=== PATIENT | male | born 1945 | race Caucasian/White ===

== ENCOUNTER 2022-11-07 10:32 | Outpatient (REF) | payer MEDICARE, BC, SELFPAY ==
[2022-11-07 13:54] LABS: MANUAL DIFF FLAG NO
[2022-11-07 14:03] LABS: Basophils Percent Auto 0.6 % (0-2); Eosinophils Percent Auto 0.6 % (0-4); Hematocrit 36.1 % (42.0-52.0); Hemoglobin 11.2 g/dl (14.0-18.0); Imm Gran Abs Auto 0.02 X10*3/uL (0.00-0.03); Imm Gran Pct Auto 0.4 % (0.0-0.4); Lymphocytes Absolute Auto 0.5 X10*3/uL (1.2-4.9); Mean Corpuscular Volume 90.3 fL (80.0-98.0); Mean Platelet Volume 10.7 fL (9.4-12.4); Monocytes Absolute Auto 0.3 X10*3/uL (0.1-1.2); Monocytes Percent Auto 6.2 % (2-11); Neutrophils Absolute Auto 3.8 x10*3/uL (2.0-8.3); Neutrophils Percent Auto 81.2 % (45-73); Platelet Count 228 X10*3/uL (160-400); White Blood Count 4.7 X10*3/uL (4.8-10.8)
[2022-11-07 14:11] LABS: Appearance Urine Cloudy; Color Urine Dark Yellow; Glucose Urine UA 100 mg/dL (Negative); Leukocyte Esterase Urine Negative (Negative); Nitrite Urine Negative (Negative); Specific Gravity - Urine >= 1.030 (1.005-1.025); UMIC TRIGGER UA YES; Urine Blood Negative (Negative); Urine Ketones Trace mg/dL (Negative); Urine Protein 30 (1+) mg/dL (Neg-Trace)
[2022-11-07 14:24] LABS: Bacteria Urine None Seen (None Seen); Calcium Oxalate Crystals Urine Present; Hyaline Casts Urine 0-2 /LPF (0-2); Squamous Epithelial Cell Urine 0-2 /HPF (0-2); WBC Urine 0-5 /HPF (0-5)
[2022-11-07 14:49] LABS: Erythrocyte Sedimentation Rate 25 MM/HR (0-15)
[2022-11-07 17:31] LABS: Alanine Aminotransferase 43 U/L (0-40); Albumin Level 3.8 g/dL (3.5-5.0); Alkaline Phosphatase 61 U/L (39-117); Anion Gap 14 (12-20); Aspartate Amino Transferase 29 U/L (5-37); Bilirubin Total 0.6 mg/dL (0.0-1.0); Blood Urea Nitrogen 14 mg/dL (9-16); C Reactive Protein 0.86 mg/dL (< or = 0.50); Calcium 9.3 mg/dL (8.4-10.2); Carbon Dioxide 27 mmol/L (22-29); Chloride 104 mmol/L (96-108); Estimated Glomerular Filt Rate > 60; Glucose Random 306 mg/dL (60-115); Potassium 4.6 mmol/L (3.3-5.1); Rheumatoid Factor < 13.0 IU/mL (<15.0); Sodium 140 mmol/L (135-145); Thyroid Stimulating Hormone 1.54 uIU/mL (0.32-4.0); Total Protein 6.1 g/dL (6.5-8.0); Uric Acid 4.5 mg/dL (3.4-7.0)
[2022-11-08 08:59] LABS: HBc Num1 0.17 S/CO (0.00-0.79); HBsAGNum1 0.38 S/CO (0.00-0.99); Hepatitis B Core Antibody Nonreactive (Nonreactive); Hepatitis B Surface Antigen Negative (Negative); ~Hepatitis B Surface Antibody NONREACTIVE (Nonreactive); ~Hepatitis C Antibody Nonreactive (Nonreactive)
[2022-11-09 07:44] LABS: Hepatitis A Antibody IgM 0.32 Index (0-0.79); ~Hepatitis A Antibody IgM Nonreactive (Nonreactive)
[2022-11-09 13:28] LABS: Myeloperoxidase Antibody <1.0 AI; Proteinase 3 PR3 Antibodies <1.0 AI
[2022-11-09 17:13] LABS: Cyclic Citrullinated Peptide <16 UNITS
[2022-11-10 03:29] LABS: TS Negative Control Passed; TS Panel A 0; TS Panel B 0; TS Positive Control Passed; TSpotTB Negative (Negative)
[2022-11-12 18:33] LABS: Prot Elec - Albumin 3.5 g/dL (3.8-4.8); Prot Elec - Alpha1 0.3 g/dL (0.2-0.3); Prot Elec - Alpha2 0.9 g/dL (0.5-0.9); Prot Elec - Beta 1 0.4 g/dL (0.4-0.6); Prot Elec - Beta 2 0.3 g/dL (0.2-0.5); Prot Elec - Gamma 0.7 g/dL (0.8-1.7); Prot Elec - Total Protein 6.1 g/dL (6.1-8.1)
[2022-11-13 11:54] LABS: Anti Nuclear Antibody Screen POSITIVE (NEGATIVE); Anti Nuclear Antibody Titer 1:40 titer
[2022-11-13 14:58] LABS: IgA 289 mg/dL (70-320); IgG 711 mg/dL (600-1540); IgM 198 mg/dL (50-300)
[2022-11-13 23:07] LABS: HLA B27 Negative (Negative)
== END 2022-11-07 10:33 | disposition home or self-care (01) ==
LOC: HO.10HDL 10:32
PROVIDERS: Visit Provider Student in an Organized Health Care Education/Training Program
DX: Z11.59 Encounter for screening for other viral diseases (principal); Z11.7 Encounter for testing for latent tuberculosis infection; M35.3 Polymyalgia rheumatica; G89.29 Other chronic pain; M54.50 Low back pain, unspecified; E03.9 Hypothyroidism, unspecified
CPT/HCPCS: 36415; 80053; 81001; 82550; 82784; 84165; 84443; 84550; 85025; 85652; 86021; 86038; 86039; 86140; 86200; 86334; 86431; 86481; 86704; 86706; 86709; 86803; 86812; 87340; 99202

== ENCOUNTER → 2022-12-12 11:26 | Outpatient (BNVA) | payer MEDICARE, BC, SELFPAY | PROVIDERS: PCP Family Medicine; Visit Provider Student in an Organized Health Care Education/Training Program | DX: M06.00 Rheumatoid arthritis without rheumatoid factor, unspecified site (principal); Z79.52 Long term (current) use of systemic steroids; Z79.899 Other long term (current) drug therapy | CPT/HCPCS: 99212 ==

== ENCOUNTER → 2023-02-08 12:56 | Outpatient (BNVA) | payer MEDICARE, BC, SELFPAY | PROVIDERS: PCP Family Medicine; Visit Provider Student in an Organized Health Care Education/Training Program | DX: M06.00 Rheumatoid arthritis without rheumatoid factor, unspecified site (principal); Z79.52 Long term (current) use of systemic steroids; Z79.899 Other long term (current) drug therapy | CPT/HCPCS: 99212 ==

== ENCOUNTER 2023-06-27 08:41 | Outpatient (REF) | payer MEDICARE, BC, SELFPAY ==
[2023-06-27 11:18] LABS: MANUAL DIFF FLAG NO
[2023-06-27 11:47] LABS: Basophils Absolute Auto 0.1 X10*3/uL (0.0-0.2); Basophils Percent Auto 1.6 % (0-2); Eosinophils Absolute Auto 0.2 X10*3/uL (0.0-0.4); Eosinophils Percent Auto 4.7 % (0-4); Hemoglobin 12.7 g/dl (14.0-18.0); Imm Gran Abs Auto 0.02 X10*3/uL (0.00-0.03); Imm Gran Pct Auto 0.5 % (0.0-0.4); Lymphocytes Absolute Auto 0.8 X10*3/uL (1.2-4.9); Lymphocytes Percent Auto 18.3 % (20-40); Mean Corpuscular Hemoglobin 29.3 pg (27.0-33.0); Mean Corpuscular Volume 94.7 fL (80.0-98.0); Mean Platelet Volume 10.3 fL (9.4-12.4); Monocytes Absolute Auto 0.4 X10*3/uL (0.1-1.2); Monocytes Percent Auto 9.3 % (2-11); Neutrophils Absolute Auto 2.9 x10*3/uL (2.0-8.3); Neutrophils Percent Auto 65.6 % (45-73); Platelet Count 217 X10*3/uL (160-400); Red Blood Count 4.33 X10*6/uL (4.60-5.80); Red Cell Distribution Width 12.3 % (11.0-16.0); White Blood Count 4.4 X10*3/uL (4.8-10.8)
[2023-06-27 12:07] LABS: Alanine Aminotransferase 35 U/L (0-40); Albumin Level 3.8 g/dL (3.5-5.0); Alkaline Phosphatase 66 U/L (39-117); Anion Gap 17 (12-20); Aspartate Amino Transferase 24 U/L (5-37); Bilirubin Total 0.8 mg/dL (0.0-1.0); Blood Urea Nitrogen 11 mg/dL (9-16); C Reactive Protein 0.19 mg/dL (< or = 0.50); Calcium 9.5 mg/dL (8.4-10.2); Carbon Dioxide 24 mmol/L (22-29); Chloride 107 mmol/L (96-108); Estimated Glomerular Filt Rate > 60; Glucose Random 252 mg/dL (60-115); Potassium 4.6 mmol/L (3.3-5.1); Sodium 143 mmol/L (135-145); Total Protein 6.2 g/dL (6.5-8.0)
[2023-06-27 12:40] LABS: Erythrocyte Sedimentation Rate 9 MM/HR (0-15)
== END 2023-06-27 08:42 | disposition home or self-care (01) ==
LOC: HO.10HDL 08:41
PROVIDERS: Visit Provider Student in an Organized Health Care Education/Training Program
DX: M06.00 Rheumatoid arthritis without rheumatoid factor, unspecified site (principal)
CPT/HCPCS: 36415; 80053; 85025; 85652; 86140

== ENCOUNTER 2023-07-05 08:26 | Outpatient (AMB) | payer MEDICARE, BC, SELFPAY ==
--- NOTE | 2023-07-05 08:33 | A.OFFVIS_ITS ---
Intake Vital Signs 07/05/23 08:34 Height 5 ft 11 in Weight 170 lb 3.15 oz BMI 23.7 BP 116/62 Blood Pressure Location Rt brachial Position Sitting Pulse 71 Pulse Source Pulse Oximeter Temp 97.3 F Temp Source Skin Pulse Oximetry (%) 96 Intake Visit Reasons: RA Intake Note: Pt seen today for RA follow up. Pain persists in shoulders, hands and wrists. 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 Required: No Accompanied by: Self / Same As Patient Allergies cats Allergy (Intermediate, Uncoded 07/05/23 08:41) Headache Medication List - Last Reconciled 07/05/23 by Ena Castillo MD acetaminophen (Tylenol Extra Strength) 500 mg PO Q6H PRN albuterol sulfate 90 mcg/actuation (ProAir HFA) 2 puffs inhalation Q6H PRN atorvastatin 80 mg PO DAILY azelaic acid 15% 1 appl topical BID coenzyme Q10 (Ultra CoQ10) 150 mg PO DAILY fluticasone propionate 50 mcg/actuation (Allergy Relief (fluticasone)) 2 sprays intranasal BID folic acid 0.8 mg PO DAILY gabapentin 300 mg PO BID glimepiride 6 mg PO QAM hydroxychloroquine 200 mg PO BID ketoconazole 2% 1 appl topical DAILY levothyroxine 125 mcg PO DAILY lisinopril 10 mg PO DAILY metformin ER 500 mg PO BID metoprolol succinate ER 50 mg PO DAILY multivitamin 1 tab PO DAILY prednisone 2 mg PO DAILY rivaroxaban (Xarelto) 20 mg PO DAILY terazosin 5 mg PO BEDTIME HPI HPI Comments History of Present Illness Details Patient returns for PMR follow-up. He is currently on 2 mg of prednisone. Has been tapering down by 1 mg a month. After reducing the prednisone dose from 5 mg daily he has been having pain and stiffness in his shoulders, wrists, fingers. Stiffness lasts until about 16:00. Continues to take hydroxychloroquine 200 mg Twice daily. He started developing psoriasis rashes on his elbows, knees, legs. Stated that he has had psoriasis for decades and has been in remission but it flared up over the last few months. 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 Condition started the end of July patient noticing generalized stiffness of his neck, shoulders, hands, thighs. Stiffness improves in about 8 hours. Was evaluated by his PCP and was found to have significantly elevated inflammatory markers. He was started on prednisone 15 mg daily with dramatic improvement of his symptoms however his blood sugars were significantly elevated his prednisone was tapered to 7.5 mg daily. Patient felt that the higher dose of prednisone was more helpful. Was also found to have positive Lyme serology and received a 28 day course of doxycycline. He denied any tick bites and denied any activities that would put him at risk of a tick bite. Denies any skin rashes. He also denies any joint pain, jaw claudication, tongue pain. Denies any claudication of his hands or feet. Denies headaches, fevers, weight loss or blurry vision. [facility] Medical History (Updated 07/05/23 @ 09:20 by Ena Castillo MD) Atrial fibrillation Degeneration of intervertebral disc of lumbar region Diabetes Encounter for testing for latent tuberculosis infection Essential hypertension Hyperlipidemia Hypothyroidism Low back pain, unspecified Obstructive sleep apnea Osteoarthritis Psoriasis Screening for viral disease Surgical History Hx of excision of lamina of lumbar vertebra for decompression of spinal cord Hx of hernia repair Family History Mother Coronary arteriosclerosis Myocardial infarction Father Alcoholism Diabetes Social History Household Members: Spouse Household Members Other:: Alcohol intake: current Alcohol intake frequency: does not drink Patient Tobacco Use Status: Former Tobacco user Current occupational status: retired 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 Review of Systems ENT Reports no additional complaints Resp Reports no additional complaints GI Reports no additional complaints Denies hematuria Musc Reports arthralgias and Reports stiffness Skin/Breast Reports rash (Psoriasis) Physical Exam Vital Signs: Last Vital Signs Temp 97.3 F 07/05/23 08:34 Pulse 71 07/05/23 08:34 BP 116/62 07/05/23 08:34 Pulse Ox 96 07/05/23 08:34 BMI result Body Mass Index 23.7 Const General: cooperative and comfortable Nutritional Appearance: average body habitus Orientation/consciousness: patient oriented x3 Limitations: no limitations HEENT Other: No temporal area tenderness No TMJ tenderness Head: Yes normocephalic and Yes atraumatic Mouth: moist mucous membranes Resp Effort & Inspection: normal respiratory effort and able to speak in complete sentences Auscultation: clear to auscultation bilaterally Cardio Rate: regular rate Rhythm: regular rhythm Heart sounds: S1 normal heart sound present and S2 normal heart sound present Skin Other: Psoriasis patches on right elbow, right leg, behind both ears Neuro General: patient oriented x3 Extrem Other: Bilateral tender wrists with no significant swelling Few tender MCPs bilaterally Bilateral diffuse PIP tenderness No ankle swelling or tenderness bilaterally Negative MTP squeeze test Normal range of motion of both shoulders Assessment & Plan Assessment & Plan (1) Seronegative rheumatoid arthritis: Comment: Seronegative diagnosed 12/17 has hx of PSO HCQ started 12/17 ineffective & caused PSO flare DC 07/17 MTX started 07/17 PDN all through Code(s): M06.00 - Rheumatoid arthritis without rheumatoid factor, unspecified site Plan: This is a 77-year-old male with seronegative RA returns for follow-up. Has been on hydroxychloroquine for approximately 6 months without significant relief. Has developed a psoriasis flare. Symptoms of pain and stiffness started after lowering prednisone dose from 5 mg. Will discontinue hydroxychloroquine due to ineffectiveness and psoriasis flare. Discussed risks and benefits of methotrexate. 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 Will monitor patient for side effects with frequent lab work. Advised patient to take folic acid daily to prevent complications of methotrexate. Patient consumes around 1 beer a month Plan I spent 26 minutes reviewing patient's chart, evaluating patient, ordering diagnostic workup, counseling patient and documenting in the chart Orders: Orders Complete Blood Count Auto Diff 2 Months M06.00 - Rheumatoid arthritis without rheumatoid factor, unspecified site Comprehensive Met. Panel 2 Months M06.00 - Rheumatoid arthritis without rheumatoid factor, unspecified site C Reactive Protein 2 Months M06.00 - Rheumatoid arthritis without rheumatoid factor, unspecified site Erythrocyte Sedimentation Rate 2 Months M06.00 - Rheumatoid arthritis without rheumatoid factor, unspecified site Medications: New prednisone Take 2 tabs by mouth once daily with breakfast for 2 weeks then 1 tab daily for 2 weeks then stop 42 tabs 1RF methotrexate sodium Take 6 tabs by mouth once weekly for 2 weeks then 8 tabs once weekly 64 tabs 0RF folic acid 1 mg PO DAILY 90 tabs 1RF Discontinued hydroxychloroquine Discontinued Reason: Doctor's Order 200 mg PO BID 180 tabs 0RF Coding Level of Care Code Est Pt Level 4 (00918) Diagnoses Seronegative rheumatoid arthritis M06.00 Methotrexate, senior living, current use Z79.631
[2023-07-05 08:34] VITALS: BP 116/62; PULSE 71; TEMP 36.3; O2SAT 96; BMI 23.7
== END 2023-07-05 09:11 | disposition home or self-care (01) ==
PROVIDERS: PCP Family Medicine; Visit Provider Student in an Organized Health Care Education/Training Program
DX: M06.00 Rheumatoid arthritis without rheumatoid factor, unspecified site (principal); Z79.631 Long term (current) use of antimetabolite agent
CPT/HCPCS: 99214

== ENCOUNTER → 2023-07-05 08:26 | Outpatient (BNVA) | payer MEDICARE, BC, SELFPAY | PROVIDERS: PCP Family Medicine; Visit Provider Student in an Organized Health Care Education/Training Program | DX: M06.00 Rheumatoid arthritis without rheumatoid factor, unspecified site (principal); Z79.631 Long term (current) use of antimetabolite agent | CPT/HCPCS: 99212 ==

== ENCOUNTER 2023-09-11 08:01 | Outpatient (REF) | payer MEDICARE, BC, SELFPAY ==
[2023-09-11 10:50] LABS: MANUAL DIFF FLAG NO
[2023-09-11 10:56] LABS: Basophils Absolute Auto 0.1 X10*3/uL (0.0-0.2); Basophils Percent Auto 1.7 % (0-2); Eosinophils Absolute Auto 0.3 X10*3/uL (0.0-0.4); Eosinophils Percent Auto 5.3 % (0-4); Hematocrit 37.3 % (42.0-52.0); Hemoglobin 11.9 g/dl (14.0-18.0); Imm Gran Abs Auto 0.03 X10*3/uL (0.00-0.03); Imm Gran Pct Auto 0.6 % (0.0-0.4); Lymphocytes Absolute Auto 0.9 X10*3/uL (1.2-4.9); Lymphocytes Percent Auto 17.9 % (20-40); Mean Corpuscular HGB Conc 31.9 g/dl (31.0-36.0); Mean Corpuscular Hemoglobin 29.9 pg (27.0-33.0); Mean Corpuscular Volume 93.7 fL (80.0-98.0); Mean Platelet Volume 10.4 fL (9.4-12.4); Monocytes Absolute Auto 0.3 X10*3/uL (0.1-1.2); Monocytes Percent Auto 6.3 % (2-11); Neutrophils Absolute Auto 3.3 x10*3/uL (2.0-8.3); Neutrophils Percent Auto 68.2 % (45-73); Platelet Count 228 X10*3/uL (160-400); Red Blood Count 3.98 X10*6/uL (4.60-5.80); Red Cell Distribution Width 13.5 % (11.0-16.0); White Blood Count 4.8 X10*3/uL (4.8-10.8)
[2023-09-11 11:16] LABS: Alanine Aminotransferase 28 U/L (0-40); Albumin Level 3.8 g/dL (3.5-5.0); Alkaline Phosphatase 75 U/L (39-117); Anion Gap 12 (12-20); Aspartate Amino Transferase 23 U/L (5-37); Bilirubin Total 0.9 mg/dL (0.0-1.0); Blood Urea Nitrogen 12 mg/dL (9-16); C Reactive Protein 0.35 mg/dL (< or = 0.50); Calcium 9.6 mg/dL (8.4-10.2); Carbon Dioxide 26 mmol/L (22-29); Chloride 107 mmol/L (96-108); Estimated Glomerular Filt Rate > 60; Glucose Random 208 mg/dL (60-115); Potassium 4.2 mmol/L (3.3-5.1); Sodium 141 mmol/L (135-145); Total Protein 6.1 g/dL (6.5-8.0)
[2023-09-11 11:52] LABS: Erythrocyte Sedimentation Rate 8 MM/HR (0-15)
== END 2023-09-11 08:02 | disposition home or self-care (01) ==
LOC: HO.10HDL 08:01
PROVIDERS: Visit Provider Student in an Organized Health Care Education/Training Program
DX: M06.00 Rheumatoid arthritis without rheumatoid factor, unspecified site (principal)
CPT/HCPCS: 36415; 80053; 85025; 85652; 86140

== ENCOUNTER 2023-09-13 09:35 | Outpatient (AMB) | payer MEDICARE, BC, SELFPAY ==
[2023-09-13 09:37] VITALS: BP 130/68; PULSE 60; O2SAT 97; BMI 24.8
--- NOTE | 2023-09-13 09:37 | MHC.OFFVIS ---
Intake Vital Signs 09/13/23 09:37 Height 5 ft 11 in Weight 177 lb 14.609 oz BMI 24.8 BP 130/68 Blood Pressure Location Rt brachial Position Sitting Pulse 60 Pulse Source Pulse Oximeter Pulse Oximetry (%) 97 Intake Visit Reasons: RA Intake Note: Pt presents today for follow up and test results. Completed prednisone taper, Plaquenil discontinued for ineffectiveness. Currently on MTX 8 tabs weekly, states this is not helping. 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 Required: No Accompanied by: Spouse Allergies cats Allergy (Intermediate, Uncoded 09/13/23 09:47) Headache Medication List - Last Reconciled 09/13/23 by Ena Castillo MD acetaminophen (Tylenol Extra Strength) 500 mg PO Q6H PRN albuterol sulfate 90 mcg/actuation (ProAir HFA) 2 puffs inhalation Q6H PRN atorvastatin 80 mg PO DAILY azelaic acid 15% 1 appl topical BID coenzyme Q10 (Ultra CoQ10) 150 mg PO DAILY fluticasone propionate 50 mcg/actuation (Allergy Relief (fluticasone)) 2 sprays intranasal BID folic acid 1 mg PO DAILY gabapentin 300 mg PO BID glimepiride 6 mg PO QAM ketoconazole 2% 1 appl topical DAILY levothyroxine 125 mcg PO DAILY lisinopril 10 mg PO DAILY metformin ER 500 mg PO BID methotrexate sodium 20 mg PO QWEEK metoprolol succinate ER 50 mg PO DAILY multivitamin 1 tab PO DAILY prednisone 2 mg PO DAILY prednisone Take 2 tabs by mouth once daily with breakfast for 2 weeks then 1 tab daily for 2 weeks then stop rivaroxaban (Xarelto) 20 mg PO DAILY terazosin 5 mg PO BEDTIME HPI HPI Comments History of Present Illness Details 78-year-old male with seronegative RA returns for follow-up. Had been on methotrexate 8 tabs weekly since last visit. States that psoriasis rashes have resolved. States that the joint pain is worse. Continues to have pain in both wrists, hands, fingers, the pain is more severe in the morning associated with stiffness that lasts 7-8 hours. No pain in knees, ankles or toes. Intermittent left elbow pain. 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 Condition started the end of July patient noticing generalized stiffness of his neck, shoulders, hands, thighs. Stiffness improves in about 8 hours. Was evaluated by his PCP and was found to have significantly elevated inflammatory markers. He was started on prednisone 15 mg daily with dramatic improvement of his symptoms however his blood sugars were significantly elevated his prednisone was tapered to 7.5 mg daily. Patient felt that the higher dose of prednisone was more helpful. Was also found to have positive Lyme serology and received a 28 day course of doxycycline. He denied any tick bites and denied any activities that would put him at risk of a tick bite. Denies any skin rashes. He also denies any joint pain, jaw claudication, tongue pain. Denies any claudication of his hands or feet. Denies headaches, fevers, weight loss or blurry vision. 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 use PMR (polymyalgia rheumatica) Encounter for testing for latent tuberculosis infection Screening for viral disease Low back pain, unspecified Psoriasis Degeneration of intervertebral disc of lumbar region Osteoarthritis Atrial fibrillation Hyperlipidemia Essential hypertension Obstructive sleep apnea Diabetes Hypothyroidism Surgical History Hx of excision of lamina of lumbar vertebra for decompression of spinal cord Hx of hernia repair Family History Mother Coronary arteriosclerosis Myocardial infarction Father Alcoholism Diabetes Social History Household Members: Spouse Household Members Other:: Alcohol intake: current Alcohol intake frequency: does not drink Patient Tobacco Use Status: Former Tobacco user Current occupational status: retired 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 Review of Systems ENT Reports no additional complaints Resp Reports no additional complaints GI Reports no additional complaints Musc Reports arthralgias, Reports joint swelling and Reports stiffness Skin/Breast Denies rash Physical Exam Vital Signs: Last Vital Signs Pulse 60 09/13/23 09:37 BP 130/68 09/13/23 09:37 Pulse Ox 97 09/13/23 09:37 BMI result Body Mass Index 24.8 Const General: cooperative and comfortable Nutritional Appearance: average body habitus Orientation/consciousness: patient oriented x3 Limitations: no limitations HEENT Other: No temporal area tenderness No TMJ tenderness Head: Yes normocephalic and Yes atraumatic Mouth: moist mucous membranes Resp Effort & Inspection: normal respiratory effort and able to speak in complete sentences Auscultation: clear to auscultation bilaterally Cardio Rate: regular rate Rhythm: regular rhythm Heart sounds: S1 normal heart sound present and S2 normal heart sound present Skin Other: Psoriasis patches on right elbow, right leg, behind both ears Neuro General: patient oriented x3 Extrem Other: Bilateral tender wrists with no significant swelling Few tender MCPs bilaterally Left hand diffuse PIP tenderness, left 2nd PIP swelling Bilateral thenar atrophy No ankle swelling or tenderness bilaterally Negative MTP squeeze test Normal range of motion of both shoulders Assessment & Plan Assessment & Plan (1) Seronegative rheumatoid arthritis: Comment: Seronegative diagnosed 12/17 has hx of PSO HCQ started 12/17 ineffective & caused PSO flare DC 07/17 MTX started 07/17 ineffective Code(s): M06.00 - Rheumatoid arthritis without rheumatoid factor, unspecified site Plan: This is a 78-year-old male with seronegative RA returns for follow-up. On methotrexate 20 mg once weekly for the last 2 months without improvement. Continues to have multiple swollen and tender joints. Will need to switch DMARDs. Discussed risks and benefits of TNF inhibitors. Patient agreed to proceed. Will start prior authorization for Humira. Prednisone 5 mg for 1 weeks then 2.5 mg for 1 weeks then stop Labs before next visit in 2 months (2) Bilateral carpal tunnel syndrome: Code(s): G56.03 - Carpal tunnel syndrome, bilateral upper limbs Plan: Patient has bilateral thenar atrophy. Will check bilateral upper extremity EMG/NCV (3) Immunization counseling: Code(s): Z71.85 - Encounter for immunization safety counseling Plan: Discussed ACR vaccination guidelines for adults with autoimmune rheumatic disease. Patient already received flu vaccine, COVID booster and RSV vaccine for this season. Is planning to get Shingrix vaccine soon. Advised patient that he does not need to hold Humira for Shingrix vaccine (4) Adalimumab (Humira) long-term use: Code(s): Z79.620 - terminologist (current) use of immunosuppressive biologic Plan: Discussed risks and benefits of TNF inhibitors. Advised patient to hold Humira with any sign of infection and let us know. Plan I spent 46 minutes reviewing patient's chart, evaluating patient, ordering diagnostic workup, counseling patient and documenting in the chart Orders: Orders NE electromyogram (EMG) Today G56.03 - Carpal tunnel syndrome, bilateral upper limbs Medications: Changed From methotrexate sodium Take 6 tabs by mouth once weekly for 2 weeks then 8 tabs once weekly 64 tabs 0RF To methotrexate sodium 20 mg PO QWEEK From prednisone Take 2 tabs by mouth once daily with breakfast for 2 weeks then 1 tab daily for 2 weeks then stop 42 tabs 1RF To prednisone Take 2 tabs by mouth once daily with breakfast for 1 weeks then 1 tab daily for 1 week then stop 21 tabs 0RF Coding Level of Care Code Est Pt Level 5 (63601) Diagnoses Seronegative rheumatoid arthritis M06.00 Bilateral carpal tunnel syndrome G56.03 Immunization counseling Z71.85 Adalimumab (Humira) long-term use Z79.620
== END 2023-09-13 10:11 | disposition home or self-care (01) ==
PROVIDERS: PCP Family Medicine; Visit Provider Student in an Organized Health Care Education/Training Program
DX: M06.00 Rheumatoid arthritis without rheumatoid factor, unspecified site (principal); G56.03 Carpal tunnel syndrome, bilateral upper limbs; Z71.85 Encounter for immunization safety counseling; Z79.620 Long term (current) use of immunosuppressive biologic
CPT/HCPCS: 99215

== ENCOUNTER → 2023-09-13 09:35 | Outpatient (BNVA) | payer MEDICARE, BC, SELFPAY | PROVIDERS: PCP Family Medicine; Visit Provider Student in an Organized Health Care Education/Training Program | DX: M06.09 Rheumatoid arthritis without rheumatoid factor, multiple sites (principal); M35.3 Polymyalgia rheumatica; G56.03 Carpal tunnel syndrome, bilateral upper limbs; Z79.52 Long term (current) use of systemic steroids; Z79.631 Long term (current) use of antimetabolite agent; Z79.620 Long term (current) use of immunosuppressive biologic; Z71.85 Encounter for immunization safety counseling | CPT/HCPCS: 99212 ==

== ENCOUNTER 2023-09-25 09:00 | Outpatient (REF) | payer MEDICARE, BC, SELFPAY ==
--- NOTE | 2023-09-25 09:02 | EMG_ITS ---
Please see scanned EMG / Nerve Conduction Report. MTDD
== END 2023-09-25 09:01 | disposition home or self-care (01) ==
LOC: HO.NEURO 09:00
PROVIDERS: PCP Family Medicine; Visit Provider Student in an Organized Health Care Education/Training Program
DX: G56.03 Carpal tunnel syndrome, bilateral upper limbs (principal)
CPT/HCPCS: 95885; 95913

== ENCOUNTER 2023-11-12 08:58 | Outpatient (REF) | payer MEDICARE, BC, SELFPAY ==
[2023-11-12 10:48] LABS: MANUAL DIFF FLAG NO
[2023-11-12 10:54] LABS: Basophils Absolute Auto 0.1 X10*3/uL (0.0-0.2); Basophils Percent Auto 1.8 % (0-2); Eosinophils Absolute Auto 0.2 X10*3/uL (0.0-0.4); Eosinophils Percent Auto 6.6 % (0-4); Hemoglobin 12.3 g/dl (14.0-18.0); Imm Gran Abs Auto 0.01 X10*3/uL (0.00-0.03); Imm Gran Pct Auto 0.4 % (0.0-0.4); Lymphocytes Absolute Auto 0.8 X10*3/uL (1.2-4.9); Lymphocytes Percent Auto 28.1 % (20-40); Mean Corpuscular HGB Conc 31.5 g/dl (31.0-36.0); Mean Corpuscular Hemoglobin 30.1 pg (27.0-33.0); Mean Corpuscular Volume 95.6 fL (80.0-98.0); Mean Platelet Volume 10.2 fL (9.4-12.4); Monocytes Absolute Auto 0.3 X10*3/uL (0.1-1.2); Monocytes Percent Auto 10.2 % (2-11); Neutrophils Absolute Auto 1.5 x10*3/uL (2.0-8.3); Neutrophils Percent Auto 52.9 % (45-73); Platelet Count 201 X10*3/uL (160-400); Red Blood Count 4.08 X10*6/uL (4.60-5.80); Red Cell Distribution Width 13.6 % (11.0-16.0); White Blood Count 2.7 X10*3/uL (4.8-10.8)
[2023-11-12 11:01] LABS: Alanine Aminotransferase 31 U/L (0-40); Albumin Level 3.8 g/dL (3.5-5.0); Alkaline Phosphatase 60 U/L (39-117); Anion Gap 12 (12-20); Aspartate Amino Transferase 27 U/L (5-37); Bilirubin Total 0.9 mg/dL (0.0-1.0); Blood Urea Nitrogen 16 mg/dL (9-16); C Reactive Protein < 0.04 mg/dL (< or = 0.50); Carbon Dioxide 27 mmol/L (22-29); Chloride 108 mmol/L (96-108); Estimated Glomerular Filt Rate > 60; Glucose Random 267 mg/dL (60-115); Potassium 3.9 mmol/L (3.3-5.1); Sodium 143 mmol/L (135-145)
[2023-11-12 11:31] LABS: Erythrocyte Sedimentation Rate 4 MM/HR (0-15)
== END 2023-11-12 08:59 | disposition home or self-care (01) ==
LOC: HO.10HDL 08:58
PROVIDERS: Visit Provider Student in an Organized Health Care Education/Training Program
DX: M06.00 Rheumatoid arthritis without rheumatoid factor, unspecified site (principal)
CPT/HCPCS: 36415; 80053; 85025; 85652; 86140

== ENCOUNTER 2023-11-15 10:00 | Outpatient (AMB) | payer MEDICARE, BC, SELFPAY ==
--- NOTE | 2023-11-15 10:04 | A.OFFVIS_ITS ---
Intake Vital Signs 11/15/23 10:08 Height 5 ft 11 in Weight 174 lb 9.698 oz BMI 24.3 BP 130/72 Blood Pressure Location Lt brachial Position Sitting Pulse 68 Pulse Source Pulse Oximeter Temp 97 F Temp Source Skin Pulse Oximetry (%) 98 Oxygen Delivery Method Room Air Intake Visit Reasons: RA Intake Note: Pt last seen 09/13/23 presents today for follow up and test results. 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 Required: No Accompanied by: Self / Same As Patient Allergies cats Allergy (Intermediate, Uncoded 09/13/23 09:47) Headache Medication List - Last Reconciled 11/15/23 by Ena Castillo MD acetaminophen (Tylenol Extra Strength) 500 mg PO Q6H PRN albuterol sulfate 90 mcg/actuation (ProAir HFA) 2 puffs inhalation Q6H PRN atorvastatin 80 mg PO DAILY azelaic acid 15% 1 appl topical BID coenzyme Q10 (Ultra CoQ10) 150 mg PO DAILY fluticasone propionate 50 mcg/actuation (Allergy Relief (fluticasone)) 2 sprays intranasal BID folic acid 1 mg PO DAILY gabapentin 300 mg PO BID glimepiride 6 mg PO QAM ketoconazole 2% 1 appl topical DAILY levothyroxine 125 mcg PO DAILY lisinopril 10 mg PO DAILY metformin ER 500 mg PO BID methotrexate sodium 20 mg (8 x 2.5 mg) PO QWEEK metoprolol succinate ER 50 mg PO DAILY multivitamin 1 tab PO DAILY rivaroxaban (Xarelto) 20 mg PO DAILY terazosin 5 mg PO BEDTIME HPI HPI Comments History of Present Illness Details 78-year-old male with seronegative RA re turns for follow-up. Has been on Humira for about 8 weeks now. States that he feels that the pain and stiffness of his fingers and wrists is better overall. Cannot think of any side effects related to Humira. Has not had any recent infection. 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 Condition started the end of July patient noticing generalized stiffness of his neck, shoulders, hands, thighs. Stiffness improves in about 8 hours. Was evaluated by his PCP and was found to have significantly elevated inflammatory markers. He was started on prednisone 15 mg daily with dramatic improvement of his symptoms however his blood sugars were significantly elevated his prednisone was tapered to 7.5 mg daily. Patient felt that the higher dose of prednisone was more helpful. Was also found to have positive Lyme serology and received a 28 day course of doxycycline. He denied any tick bites and denied any activities that would put him at risk of a tick bite. Denies any skin rashes. He also denies any joint pain, jaw claudication, tongue pain. Denies any claudication of his hands or feet. Denies headaches, fevers, weight loss or blurry vision. [facility] Medical History (Updated 11/15/23 @ 11:53 by Ena Castillo MD) PMR (polymyalgia rheumatica) Low back pain, unspecified Psoriasis Degeneration of intervertebral disc of lumbar region Osteoarthritis Atrial fibrillation Hyperlipidemia Essential hypertension Obstructive sleep apnea Diabetes Hypothyroidism Surgical History Hx of excision of lamina of lumbar vertebra for decompression of spinal cord Hx of hernia repair Family History Mother Coronary arteriosclerosis Myocardial infarction Father Alcoholism Diabetes Social History (Updated 11/15/23 @ 10:09 by C[place]AND Abraham) Household Members: Spouse Household Members Other:: Alcohol intake: current Alcohol intake frequency: holidays/special occasions only Patient Tobacco Use Status: Former Tobacco user Current occupational status: 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 Review of Systems ENT Reports no additional complaints Resp Reports no additional complaints GI Reports no additional complaints Musc Reports arthralgias and Reports numbness Skin/Breast Denies rash Neuro Reports numbness Physical Exam Vital Signs: Last Vital Signs Temp 97 F 11/15/23 10:08 Pulse 68 11/15/23 10:08 BP 130/72 11/15/23 10:08 Pulse Ox 98 11/15/23 10:08 Oxygen Delivery Method Room Air 11/15/23 10:08 BMI result Body Mass Index 24.3 Const General: cooperative and comfortable Nutritional Appearance: average body habitus Orientation/consciousness: patient oriented x3 Limitations: no limitations HEENT Head: Yes normocephalic and Yes atraumatic Resp Effort & Inspection: normal respiratory effort and able to speak in complete sentences Auscultation: clear to auscultation bilaterally Cardio Rate: regular rate Rhythm: regular rhythm Heart sounds: S1 normal heart sound present and S2 normal heart sound present Skin Other: Small psoriasis patch on left 5th MCP Neuro General: patient oriented x3 Extrem Other: Nontender wrists today and no pain with flexion and extension Nontender PIPs today Bilateral thenar atrophy Normal range of motion of both elbows No ankle swelling or tenderness bilaterally Negative MTP squeeze test Assessment & Plan Assessment & Plan (1) Seronegative rheumatoid arthritis: Comment: Seronegative diagnosed 12/17 has hx of PSO HCQ started 12/17 ineffective & caused PSO flare DC 07/17 MTX started 07/17 ineffective DC 09/2023 Humira 09/2023 effective Code(s): M06.00 - Rheumatoid arthritis without rheumatoid factor, unspecified site Plan: This is a 78-year-old male with seronegative RA returns for follow-up. On Humira 40 mg every other week. Doing much better overall Continue Humira 40 mg every other week Labs before next visit in 3 months (2) Bilateral carpal tunnel syndrome: Code(s): G56.03 - Carpal tunnel syndrome, bilateral upper limbs Plan: Patient has bilateral thenar atrophy. Bilateral upper extremity EMG showed all bilateral carpal tunnel syndrome as well as ulnar neuropathy as well as significant sensory and motor neuropathy. Referred patient to neurology Will prescribe bilateral wrist splints Also referred patient to Hand surgery (3) Adalimumab (Humira) long-term use: Code(s): Z79.620 - continuous churn buttermaker (current) use of immunosuppressive biologic Plan: Advised patient to hold Humira with any sign of infection and let us know. His labs showed leukopenia. Will continue to monitor. Plan I spent 36 minutes reviewing patient's chart, evaluating patient, ordering diagnostic workup, counseling patient and documenting in the chart Orders: Orders Complete Blood Count Auto Diff 3 Months M06.00 - Rheumatoid arthritis without rheumatoid factor, unspecified site Comprehensive Met. Panel 3 Months M06.00 - Rheumatoid arthritis without rheumatoid factor, unspecified site C Reactive Protein 3 Months M06.00 - Rheumatoid arthritis without rheumatoid factor, unspecified site Erythrocyte Sedimentation Rate 3 Months M06.00 - Rheumatoid arthritis without rheumatoid factor, unspecified site Referrals Hand Surgery Referral G56.03 - Carpal tunnel syndrome, bilateral upper limbs Medications: New [wrist splint] Wear nightly and as much as possible throughout the day 2 ea 0RF G56.03 - Carpal tunnel syndrome, bilateral upper limbs Discontinued folic acid Discontinued Reason: Doctor's Order 1 mg PO DAILY 90 tabs 1RF methotrexate sodium Discontinued Reason: Doctor's Order 20 mg (8 x 2.5 mg) PO QWEEK 64 tabs 0RF M06.00 - Rheumatoid arthritis without rheumatoid factor, unspecified site Coding Level of Care Code Est Pt Level 4 (85914) Diagnoses Seronegative rheumatoid arthritis M06.00 Bilateral carpal tunnel syndrome G56.03 Adalimumab (Humira) long-term use Z79.620
[2023-11-15 10:08] VITALS: BP 130/72; PULSE 68; TEMP 36.1; O2SAT 98; BMI 24.3
== END 2023-11-15 10:51 | disposition home or self-care (01) ==
PROVIDERS: PCP Family Medicine; Visit Provider Student in an Organized Health Care Education/Training Program
DX: M06.00 Rheumatoid arthritis without rheumatoid factor, unspecified site (principal); G56.03 Carpal tunnel syndrome, bilateral upper limbs; Z79.620 Long term (current) use of immunosuppressive biologic
CPT/HCPCS: 99214

== ENCOUNTER → 2023-11-15 10:00 | Outpatient (BNVA) | payer MEDICARE, BC, SELFPAY | PROVIDERS: PCP Family Medicine; Visit Provider Student in an Organized Health Care Education/Training Program | DX: M06.00 Rheumatoid arthritis without rheumatoid factor, unspecified site (principal); G56.03 Carpal tunnel syndrome, bilateral upper limbs; Z79.620 Long term (current) use of immunosuppressive biologic | CPT/HCPCS: 99212 ==

== ENCOUNTER 2024-01-07 13:52 | Outpatient (AMB) | payer MEDICARE, BC, SELFPAY ==
--- NOTE | 2024-01-07 14:14 | MHC.OFFVIS ---
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 EMG was done on 09/25/23.Patient states off and on numbness for about 2 years. He states that using bilateral hand braces provide him relief. Patient reports the numbness are equal in both hands. Yet he states when he wakes up in the morning he tends to get numbness more in his right hand. 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 He says he has numbness in the thumb, index, and middle fingers bilaterally. His symptoms are intermittent, but daily, worse at night. He says his numbness is equal between hands, but worse in the right when first waking up. He also complains of pain in his wrists, which he says radiates up into his fingers at times. He denies any small finger numbness He wears bilateral wrist braces at times, which help his numbness and pain during the day. He says wearing them at night give him more trouble falling asleep and he does not like wearing them. He reports a hx of neuropathy affecting his feet, and he says he has an appointment with a Neurologist in [place] on 01/10/24. He was referred there by Dr. Castillo. He says his feet are completely numb and this has caused issues with his balance and ability to walk. He says he has a hx of spine surgery due to arthritis. He has RA and is on Humira. He is on Xarelto and is a Diabetic, which he says is well controlled. [facility]LY [facility] Medical History (Updated 01/07/24 @ 14:43 by Ori May) PMR (polymyalgia rheumatica) Low back pain, unspecified Psoriasis Degeneration of intervertebral disc of lumbar region Osteoarthritis Atrial fibrillation Hyperlipidemia Essential hypertension Obstructive sleep apnea Diabetes Hypothyroidism Surgical History Hx of excision of lamina of lumbar vertebra for decompression of spinal cord Hx of hernia repair Family History Mother Coronary arteriosclerosis Myocardial infarction Father Alcoholism Diabetes Social History (Updated 11/15/23 @ 10:09 by CLEVELAND Ramirez) Household Members: Spouse Household Members Other:: Alcohol intake: current Alcohol intake frequency: holidays/special occasions only Patient Tobacco Use Status: Former Tobacco user Current occupational status: retired 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 Review of Systems Const All systems reviewed & are unremarkable except as noted in HPI and below Physical Exam Const General: cooperative, healthy appearing and no acute distress Orientation/consciousness: patient oriented x3 HEENT Head: Yes normocephalic and Yes atraumatic Eyes EOM: EOMs intact bilaterally Resp Effort & Inspection: normal respiratory effort and able to speak in complete sentences Cardio Jugular venous distension: no JVD Skin General skin exam: turgor normal Rashes: no rashes Neuro General: patient oriented x3 Extrem Other: Evaluation of Bilateral Upper Extremity: The patient is alert, oriented, and in no acute distress Neuro: Median and radial nerve motor and sensory intact today in clinic. Regarding the ulnar nerve bilaterally we see severe intrinsic wasting but intact sensation in the ulnar nerve distribution including the ulnar aspect of the hand. Weakness of finger abduction, as well as positive Froment sign. No thenar wasting Weak APB muscle belly firing Vascular: Cap refill brisk ROM: He can make a fist and extend all his digits No locking or catching Skin: No lacerations or abrasions. General: No Ecchymosis. No Erythema or evidence of infection. 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 EMG of the C5-T1 innervated muscles bilaterally consistent with chronic denervation in the intrinsic hand muscles. Dr. Padron 12/26/22 Psych Appearance: grossly normal Affect: normal affect Attitude: cooperative Assessment & Plan Assessment & Plan (1) Carpal tunnel syndrome of right wrist: Code(s): G56.01 - Carpal tunnel syndrome, right upper limb (2) Carpal tunnel syndrome of left wrist: Code(s): G56.02 - Carpal tunnel syndrome, left upper limb (3) Adalimumab (Humira) long-term use: Code(s): Z79.620 - FPC (current) use of immunosuppressive biologic (4) Seronegative rheumatoid arthritis: Comment: Seronegative diagnosed 12/17 has hx of PSO HCQ started 12/17 ineffective & caused PSO flare DC 07/17 MTX started 07/17 ineffective DC 09/2023 Humira 09/2023 effective Code(s): M06.00 - Rheumatoid arthritis without rheumatoid factor, unspecified site Plan Assessment & plan: 1. Right Carpal tunnel syndrome, moderate-severe 2. Left Carpal tunnel syndrome, moderate-severe These are intermittent but daily worse at night. He wears nighttime splints which are helpful, but the bilateral splinting also seems to wake him up at night. I educated her about these conditions I discussed operative and non-operative treatment options. I am recommending surgery in the form of carpal tunnel releases. The patient would like to proceed with surgery, beginning with the right side The risks and benefits of operative treatment were discussed with the patient and the patient wishes to proceed with surgery. These risks include, but are not limited to risk of damage to blood vessels, nerves, tendons, infection, recurrence, incomplete relief of preoperative symptoms, persistent pain, possible need for further surgery and the risks associated with regional blocks and anesthesia. The plan is to take the patient to the operating room sometime in the next few weeks for the following procedures: 1. Right carpal tunnel release, under local All of the preoperative paperwork including the consent was reviewed today. All the patient's questions were answered. The patient understands that they will be contacted by our operations scheduler soon to schedule this procedure He denies asthma, lung, kidney issues He has Diabetes, which is well-controlled, is on Xarelto for Afib, and takes Humira for his RA. He says his most recent HgA1c was ~7.2% but is unsure when this was tested. He needs to know when to stop & resume his Humira for surgery, and if it is safe to schedule him for [id number] carpal tunnel release, or if there should be a several month delay between procedures. We will discuss surgery for his left side when we know the plan for stopping/starting his Humira. 3. Bilateral hand intrinsic wasting, severe Normal sensation in the ulnar nerve distribution He has a hx of neuropathy affecting his feet as well, along with gait abnormalities, but no sensory loss in the ulnar nerve distribution He has an appointment with ALVINA Cross, who works with Dr. Auguste who is a Neurologist at [place] on 01/10/24 I provided him with some questions to bring to this appointment, and he will contact the clinic when he has answers Question 1 is regarding reasons for severe intrinsic wasting yet normal ulnar nerve sensation bilaterally Question 2 is regarding whether or not she thinks that he might benefit from cubital tunnel releases. At this point I am suspecting probably not. Please note that greater than 40 minutes was spent with this patient going over the history, evaluating the patient and radiographs, formulating possible treatment options, discussing them with the patient, and documenting the visit. Scribed for Tessa Ceballos MD by Ori aMy, medical record librarians teacher, on 01/07/24 at 3:00 PM, EST. Coding Level of Care Code New Pt Level 4 (62760) Diagnoses Carpal tunnel syndrome of right wrist G56.01 Carpal tunnel syndrome of left wrist G56.02 Adalimumab (Humira) long-term use Z79.620 Seronegative rheumatoid arthritis M06.00
== END 2024-01-07 15:25 | disposition home or self-care (01) ==
PROVIDERS: PCP Family Medicine; Visit Provider Orthopaedic Surgery
DX: G56.03 Carpal tunnel syndrome, bilateral upper limbs (principal); Z79.620 Long term (current) use of immunosuppressive biologic; M06.00 Rheumatoid arthritis without rheumatoid factor, unspecified site
CPT/HCPCS: 99204

== ENCOUNTER → 2024-01-07 13:52 | Outpatient (BNVA) | payer MEDICARE, BC, SELFPAY | PROVIDERS: PCP Family Medicine; Visit Provider Orthopaedic Surgery | DX: G56.03 Carpal tunnel syndrome, bilateral upper limbs (principal); M06.00 Rheumatoid arthritis without rheumatoid factor, unspecified site; Z79.620 Long term (current) use of immunosuppressive biologic | CPT/HCPCS: 99202 ==

== ENCOUNTER 2024-01-10 09:57 | Outpatient (AMB) | payer MEDICARE, BC, SELFPAY ==
--- NOTE | 2024-01-10 10:04 | MHC.OFFVIS ---
Intake Vital Signs 01/10/24 10:11 Height 5 ft 11 in Weight 174 lb BMI 24.3 BP 128/72 Blood Pressure Location Rt brachial Position Sitting Pulse 66 Pulse Source Pulse Oximeter Pulse Oximetry (%) 98 Oxygen Delivery Method Room Air Intake Visit Reasons: I-NPBilateral carpal tunnel,sensory neuropathy-Cof Intake Note: patient presents for sensory neuropathy. I saw my hand surgeon yesterday, I sent Elle a note with questions yesterday from portal Allergies cats Allergy (Intermediate, Uncoded 01/10/24 10:13) Headache Medication List - Last Reconciled 01/10/24 by Elle Khan, ALVINA acetaminophen (Tylenol Extra Strength) 500 mg PO Q6H PRN adalimumab (Humira Pen) inject one - 40 mg/0.8 mL pen every 2 weeks subcut albuterol sulfate 90 mcg/actuation (ProAir HFA) 2 puffs inhalation Q6H PRN atorvastatin 80 mg PO DAILY azelaic acid 15% 1 appl topical BID azelastine intranasal coenzyme Q10 (Ultra CoQ10) 150 mg PO DAILY doxycycline hyclate 20 mg PO DAILY fluticasone propionate 50 mcg/actuation (Allergy Relief (fluticasone)) 2 sprays intranasal BID folic acid 1 mg PO DAILY gabapentin 300 mg PO BID glimepiride 6 mg PO QAM ketoconazole 2% 1 appl topical DAILY levothyroxine 125 mcg PO DAILY lisinopril 10 mg PO DAILY metformin ER 500 mg PO BID metoprolol succinate ER 50 mg PO DAILY multivitamin 1 tab PO DAILY rivaroxaban (Xarelto) 20 mg PO DAILY terazosin 5 mg PO BEDTIME [wrist splint Wear nightly and as much as possible throughout the day] HPI HPI Comments History of Present Illness Details 78-year-old male presents for new pt evaluation of neuropathy. Patient is accompanied by his . PMH is significant for arthritis, atrial fibrillation, MICHELLE,- on CPAP, diabetes, hypertension, hypothyroidism, back surgery- L4-L5 decompression, left 9Feb 2022), right TKR, cardiac ablation. Pt reports about a year ago, he started having difficulty using and lifting his BUE due to upper body stiffness and pain. At that time, he was also having bilateral hand swelling and psoriatic rashes. At the time, his ESR was elevated at 25. He was evaluated by Dr Castillo, rheumatology, who diagnosed w/ seronegative RA. He was trialed on prednisone- had symptom improvement but increased blood sugars, methotrexate- ineffective and hydroxychloroquine- ineffective. Since he was started on Humira- hand swelling has improved, bilateral shoulder and left neck pain and ROM has improved. Then about 6 months ago, he started having pain/numbness in BUE- painful numbness in Caed 2nd-4th fingers, which started waking him up at night. Has been using wrist splints at night, which helps, but can still wake up with right hand/wrist numbness. He had not noticed, but now notices that he has weakness in the cade hands- barrett with opening a jar, turning a cable input. He thus underwent BUE EMG/NCS, bilateral moderately severe diffuse sensorimotor peripheral neuropathy with superimposed ulnar neuropathy and carpal tunnel syndrome, as well as evidence for chronic denervation in the bilateral intrinsic hand muscles of the CS C5-T1 innervated muscles. Patient was referred to Dr Ceballos, Orthopedics, for further evaluation. She is advised patient to undergo bilateral carpal tunnel syndrome repair. However request neurology input if there would be any benefit to patient undergoing a cubital tunnel release and to assess the intrinsic muscle wasting with normal sensation. He does endorse a history of BLE diabetic neuropathy- symmetric numbness toes-ankle- but can feel the ground. He feels the BLE causes him to have difficulty walking. Pt is right handed. ADL status: Ind IADL status: Ind Fine-motor skills: He has some difficulty w/ buttons. Writing is not as easy as it used to be a yr ago. No issues with zippiers, cutting, or writing. Hypophonia: Denies Hyposmia: Denies Dysphagia: Denies Drooling: Denies Orthostatic lightheadedness: Denies Constipation: Occasionally- attributes to meds. Slowness: A little slower Freezing episodes: Denies. Tremor: None Stiffness: Prone to back stiffness- has arthritis, h/o sciatica. Has history of neck pain and stiffness. Not having upper body stiffness. Gait changes: Feels like he wobbles when walking. He needs to hold onto something when going up steps. Uses a walking stick when for longer outdoor walks. No actual falls. After his right TKR, he was advised to use a shoe lift and left shoe due to right TKR has caused a slight limb length discrepancy. Sleep difficulty: Not sleeping as well w/ the CPAP, wrist splints, and pains- can take a few hours to get comfortable. Sleeps better when just using the CPAP- f/b [facility] Dr Bills. Denies parasomnias. Memory impairment: Denies. Hallucinations: None. Usual exercise: Walks, rides a recumbent bike, and stretches most days. History of concussion/head injury? Denies History of neuroleptic (metoclopramide/antipsychotics) use? Denies History of psychiatric hospitalizations? Denies History of occupational chemical exposures? Denies. 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 [employer] Medical History (Updated 01/17/24 @ 14:25 by ALVINA Cross) PMR (polymyalgia rheumatica) Low back pain, unspecified Psoriasis Degeneration of intervertebral disc of lumbar region Osteoarthritis Atrial fibrillation Hyperlipidemia Essential hypertension Obstructive sleep apnea Diabetes Hypothyroidism Surgical History (Updated 01/10/24 @ 10:09 by CLEVELAND Serrano) H/O knee surgery H/O heart surgery Hx of excision of lamina of lumbar vertebra for decompression of spinal cord Hx of hernia repair Family History Mother Coronary arteriosclerosis Myocardial infarction Father Alcoholism Diabetes Social History Household Members: Spouse Household Members Other:: Alcohol intake: current Alcohol intake frequency: holidays/special occasions only Patient Tobacco Use Status: Former Tobacco user Current occupational status: retired 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 Review of Systems Const All systems reviewed & are unremarkable except as noted in HPI and below Physical Exam Vital Signs: Last Vital Signs Pulse 66 01/10/24 10:11 BP 128/72 01/10/24 10:11 Pulse Ox 98 01/10/24 10:11 Oxygen Delivery Method Room Air 01/10/24 10:11 BMI result Body Mass Index 24.3 Const General: cooperative and no acute distress Resp Effort & Inspection: normal respiratory effort and able to speak in complete sentences Cardio Rate: regular rate Rhythm: regular rhythm Neuro Other: General: Alert and oriented x3 Expression: Intact Voice: Intact Tremor: Mild left postural and when the tremor Finger nose: Intact Tone: Mild LUE tone Dyskinesia: None FFM: Very mild decrease in LUE Foot taps: Mildly decreased on left Gait: Right arm droop, decreased arm swing, shorter steps- almost a very mild bilateral high step without heel toe movement,, sometimes stops are wider, sometimes narrower, unsteady during term. Psych: Pleasant affect Muscle strength: Bilateral Intrinsic hand muscle wasting, weak finger abduction. Cade foot MS 5/5. Sensation: BUE light, sharp, vibration sensation Intact. Positive LUE Tinel, Phalen, medial compression test. Negative RUE Tinel, Phalen, medial compression test. BLE light touch sensation intact. BLE position sensation absent. 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 EMG of the C5-T1 innervated muscles bilaterally consistent with chronic denervation in the intrinsic hand muscles. Review of Dr Julian, neurosurgery notes, 2021: lumbar spine MRI showed severe stenosis at L4-L5 due to a combination of ligamentous hypertrophy and herniated disk. ?He also has moderate stenosis at L3-L4. In Dec 2022, Pt underwent L4-L5 decompression, left. Assessment & Plan Assessment & Plan (1) Cubital tunnel syndrome, bilateral: Code(s): G56.23 - Lesion of ulnar nerve, bilateral upper limbs (2) Bilateral carpal tunnel syndrome: Code(s): G56.03 - Carpal tunnel syndrome, bilateral upper limbs (3) Tremor: Code(s): R25.1 - Tremor, unspecified (4) Rigidity: Code(s): R29.898 - Other symptoms and signs involving the musculoskeletal system (5) Altered gait: Code(s): R26.9 - Unspecified abnormalities of gait and mobility (6) Sensory motor neuropathy: Comment: BUE moderately severe diffuse sensorimotor peripheral neuropathy. Code(s): G62.9 - Polyneuropathy, unspecified Plan Pt has bilateral intrisic handle muscle wasting and weakness, w/ intact ulnar distribution sensation and unable to elicit any numbness/tingling/pain through ulnar distribution. ? if Cade cupital neuropathy is r/t arthritis, tremor/rigidity, or postural tendencies. ? if underlying progressive neuromuscular/neurodegenerative process. He does have LUE positive tinnel, phalen, and medial compression tests, although pt reports painful numbness is more bothersome in Right hand. Pt advised to undergo brain MRI wo to assess for secondary etiologies of tremor, rigidity, gait difficulties. Patient advised to undergo C-spine MRI w/o to assess for secondary etiologies of tremor, rigidity, gait difficulties. Pt advised to undergo BLE EMG/NCS to further assess patient's lower extremity neuropathy symptoms. Patient does have diabetes, however will check labs for other common etiologies of moderately severe diffuse sensory motor peripheral neuropathy and multifocal neuropathies. Continue to wear wrist splints at night. Will reach out to Dr Ceballos to discuss question BUE intrinsic muscle wasting in setting of normal sensation in ulnar nerve distribution, and if cubital tunnel release would be of any benefit. f/u upon review of above and in in clinic in 3 months. Orders: Orders NE electromyogram (EMG) Today E11.9 - Type 2 diabetes mellitus without complications, G62.9 - Polyneuropathy, unspecified, I10 - Essential (primary) hypertension, I48.91 - Unspecified atrial fibrillation, R25.1 - Tremor, unspecified, R26.9 - Unspecified abnormalities of gait and mobility, R29.898 - Other symptoms and signs involving the musculoskeletal system Protein Electrophoresis 24HrUr Today G56.03 - Carpal tunnel syndrome, bilateral upper limbs, G56.23 - Lesion of ulnar nerve, bilateral upper limbs, G62.9 - Polyneuropathy, unspecified TSH reflex Free T4 Today G56.03 - Carpal tunnel syndrome, bilateral upper limbs, G56.23 - Lesion of ulnar nerve, bilateral upper limbs, G62.9 - Polyneuropathy, unspecified IRON PROFILE Today G56.03 - Carpal tunnel syndrome, bilateral upper limbs, G56.23 - Lesion of ulnar nerve, bilateral upper limbs, G62.9 - Polyneuropathy, unspecified Homocysteine Today G56.03 - Carpal tunnel syndrome, bilateral upper limbs, G56.23 - Lesion of ulnar nerve, bilateral upper limbs, G62.9 - Polyneuropathy, unspecified Other Ref Test - Misc Today G56.03 - Carpal tunnel syndrome, bilateral upper limbs, G56.23 - Lesion of ulnar nerve, bilateral upper limbs, G62.9 - Polyneuropathy, unspecified MR head/brain wo con Today E11.9 - Type 2 diabetes mellitus without complications, I10 - Essential (primary) hypertension, I48.91 - Unspecified atrial fibrillation, R25.1 - Tremor, unspecified, R26.9 - Unspecified abnormalities of gait and mobility, R29.898 - Other symptoms and signs involving the musculoskeletal system MR cervical spine wo con Today E11.9 - Type 2 diabetes mellitus without complications, I10 - Essential (primary) hypertension, I48.91 - Unspecified atrial fibrillation, R25.1 - Tremor, unspecified, R26.9 - Unspecified abnormalities of gait and mobility, R29.898 - Other symptoms and signs involving the musculoskeletal system Complete Blood Count Auto Diff Today G56.03 - Carpal tunnel syndrome, bilateral upper limbs, G56.23 - Lesion of ulnar nerve, bilateral upper limbs, G62.9 - Polyneuropathy, unspecified Comprehensive Met. Panel Today G56.03 - Carpal tunnel syndrome, bilateral upper limbs, G56.23 - Lesion of ulnar nerve, bilateral upper limbs, G62.9 - Polyneuropathy, unspecified Vitamin B12 and Folate Today G56.03 - Carpal tunnel syndrome, bilateral upper limbs, G56.23 - Lesion of ulnar nerve, bilateral upper limbs, G62.9 - Polyneuropathy, unspecified Hemoglobin A1c Today G56.03 - Carpal tunnel syndrome, bilateral upper limbs, G56.23 - Lesion of ulnar nerve, bilateral upper limbs, G62.9 - Polyneuropathy, unspecified Methylmalonic Acid Today G56.03 - Carpal tunnel syndrome, bilateral upper limbs, G56.23 - Lesion of ulnar nerve, bilateral upper limbs, G62.9 - Polyneuropathy, unspecified Coding Level of Care Code New Pt Level 4 (21466) Diagnoses Cubital tunnel syndrome, bilateral G56.23 Bilateral carpal tunnel syndrome G56.03 Tremor R25.1 Rigidity R29.898 Altered gait R26.9 Sensory motor neuropathy G62.9
[2024-01-10 10:11] VITALS: BP 128/72; PULSE 66; O2SAT 98; BMI 24.3
== END 2024-01-10 11:39 | disposition home or self-care (01) ==
PROVIDERS: PCP Family Medicine; Visit Provider Nurse Practitioner Family
DX: G56.23 Lesion of ulnar nerve, bilateral upper limbs (principal); G56.03 Carpal tunnel syndrome, bilateral upper limbs; R25.1 Tremor, unspecified; R29.898 Other symptoms and signs involving the musculoskeletal system; R26.9 Unspecified abnormalities of gait and mobility; G62.9 Polyneuropathy, unspecified
CPT/HCPCS: 99204

== ENCOUNTER → 2024-01-10 09:57 | Outpatient (BNVA) | payer MEDICARE, BC, SELFPAY | PROVIDERS: PCP Family Medicine; Visit Provider Nurse Practitioner Family | DX: G56.23 Lesion of ulnar nerve, bilateral upper limbs (principal); G56.03 Carpal tunnel syndrome, bilateral upper limbs; G62.9 Polyneuropathy, unspecified; R25.1 Tremor, unspecified; R29.898 Other symptoms and signs involving the musculoskeletal system; R26.9 Unspecified abnormalities of gait and mobility | CPT/HCPCS: 99202 ==

== ENCOUNTER 2024-01-22 08:04 | Outpatient (REF) | payer MEDICARE, BC, SELFPAY ==
[2024-01-22 08:21] LABS: MANUAL DIFF FLAG NO
[2024-01-22 08:53] LABS: Basophils Absolute Auto 0.1 X10*3/uL (0.0-0.2); Basophils Percent Auto 1.3 % (0-2); Eosinophils Absolute Auto 0.3 X10*3/uL (0.0-0.4); Hemoglobin 13.5 g/dl (14.0-18.0); Imm Gran Abs Auto 0.02 X10*3/uL (0.00-0.03); Imm Gran Pct Auto 0.4 % (0.0-0.4); Lymphocytes Absolute Auto 1.1 X10*3/uL (1.2-4.9); Lymphocytes Percent Auto 24.4 % (20-40); Mean Corpuscular HGB Conc 32.1 g/dl (31.0-36.0); Mean Corpuscular Hemoglobin 29.9 pg (27.0-33.0); Mean Corpuscular Volume 92.9 fL (80.0-98.0); Mean Platelet Volume 10.2 fL (9.4-12.4); Monocytes Absolute Auto 0.5 X10*3/uL (0.1-1.2); Neutrophils Absolute Auto 2.6 x10*3/uL (2.0-8.3); Neutrophils Percent Auto 57.9 % (45-73); Platelet Count 212 X10*3/uL (160-400); Red Blood Count 4.52 X10*6/uL (4.60-5.80); Red Cell Distribution Width 12.9 % (11.0-16.0); White Blood Count 4.5 X10*3/uL (4.8-10.8)
[2024-01-22 09:13] LABS: Alanine Aminotransferase 34 U/L (0-40); Alkaline Phosphatase 75 U/L (39-117); Anion Gap 14 (12-20); Aspartate Amino Transferase 31 U/L (5-37); Bilirubin Total 0.9 mg/dL (0.0-1.0); Blood Urea Nitrogen 18 mg/dL (9-16); Calcium 9.5 mg/dL (8.4-10.2); Carbon Dioxide 26 mmol/L (22-29); Chloride 107 mmol/L (96-108); Estimated Glomerular Filt Rate > 60; Glucose Random 124 mg/dL (60-115); Iron 68 mcg/dL (45-160); Percent Iron Saturation 25 % (15-50); Potassium 3.9 mmol/L (3.3-5.1); Sodium 143 mmol/L (135-145); Total Iron Binding Capacity 275 mcg/dL (228-428); Total Protein 6.6 g/dL (6.5-8.0); Unsaturated Iron Binding 207 ug/dL
[2024-01-22 09:18] LABS: Estimated Average Glucose 151 mg/dL; Hemoglobin A1c % 6.9 % (<6.0)
[2024-01-22 14:52] LABS: Folate 15.8 ng/mL (> or = 4.0); Vitamin B12 271 pg/mL (200-900)
[2024-01-23 17:13] LABS: Homocysteine 23.3 umol/L (<11.4)
[2024-01-24 09:33] LABS: Creatinine, 24Hr Urine 0.99 g/24 h (0.50-2.15); PEU-PROT/CRE Ratio mg/mg 0.167 (<0.100); PEU24-Albumin Urine 100 %; PEU24-Alpha 1 Globulin 0 %; PEU24-Alpha 2 Globulin 0 %; PEU24-Beta Globulin 0 %; PEU24-Gamma Globulin 0 %; Total Protein 24Hr Urine 166 mg/24 h (<150); Total Protein/Creat Ratio 24h 167 mg/g creat (<100)
[2024-01-26 05:03] LABS: Methylmalonic Acid 1177 nmol/L (87-318)
== END 2024-01-22 08:05 | disposition home or self-care (01) ==
LOC: HO.LAB 08:04
PROVIDERS: PCP Family Medicine; Visit Provider Nurse Practitioner Family
DX: G62.9 Polyneuropathy, unspecified (principal); G56.23 Lesion of ulnar nerve, bilateral upper limbs; G56.03 Carpal tunnel syndrome, bilateral upper limbs
CPT/HCPCS: 80053; 82570; 82607; 82746; 83036; 83090; 83519; 83540; 83921; 84156; 84166; 84443; 85025; 86052; 86255; 86341; 86596

== ENCOUNTER 2024-02-12 17:13 | Outpatient (REF) | payer MEDICARE, BC, SELFPAY ==
--- NOTE | ~2024-02-12 | MR_ITS ---
EXAMINATION: MRI OF THE BRAIN WITHOUT IV CONTRAST MRI CERVICAL SPINE WITHOUT IV CONTRAST INDICATION: Tremor, altered gait, rigidity. COMPARISON: None available. TECHNIQUE: Multiplanar multisequence MR imaging of the brain and cervical spine was obtained without intravenous contrast. FINDINGS: Motion artifact is present. BRAIN: No acute intracranial hemorrhage or infarct. Encephalomalacic changes in the left parietal lobe. Scattered and confluent periventricular and deep white matter T2/FLAIR hyperintensities, nonspecific however commonly seen with small vessel ischemic disease. No midline shift or hydrocephalus. No acute extra-axial fluid collections. Prominence of the CSF spaces along the iumoj-bscndbd-euco-left frontoparietal convexities may represent chronic hygromas. The osseous structures are unremarkable. Partially empty sella. The pineal gland and remaining midline structures are unremarkable. No orbital pathology. Mucosal thickening of the paranasal sinuses with complete opacification of the atelectatic right maxillary sinus. The mastoid air cells are clear. CERVICAL SPINE: Straightening of the normal cervical lordosis. Grade 1 anterolisthesis at C2-C3. Mild retrolisthesis at C3-C4, C5-C6, and C6-C7. Diffusely heterogeneous bone marrow signal is likely degenerative. No acute bone marrow abnormality. The vertebral body heights are preserved. Multilevel disc desiccation and disc height loss, worse and severe at C3-C4. The spinal cord appears mildly atrophic the from the levels of C3-C4 through C6-C7. There is suggestion of abnormal cord signal involving the left aspect of the cord at the level of C5-C6. C2-C3: Bilateral facet arthrosis. Moderate right and [id number]-vv-[id number] left neural foraminal narrowing. No significant spinal canal stenosis. C3-C4: Disc osteophyte complex, bilateral uncovertebral hypertrophy, and bilateral facet arthrosis. Severe spinal canal stenosis with impingement of the cord. Severe bilateral neural foraminal narrowing. C4-C5: Disc ossified complex with superimposed left paracentral disc protrusion. Bilateral uncovertebral hypertrophy and facet arthrosis. Moderate spinal canal stenosis with mass effect on the cord. Severe left and moderate right neural foraminal narrowing. C5-C6: Disc osteophyte complex, bilateral uncovertebral hypertrophy, and bilateral facet arthrosis. Markedly severe spinal canal stenosis with impingement of the cord. Severe bilateral neural foraminal narrowing. C6-C7: Disc osteophyte complex, bilateral uncovertebral hypertrophy, and bilateral facet arthrosis. Moderate spinal canal stenosis with mass effect on the cord. Severe bilateral neural foraminal narrowing. C7-T1: Disc osteophyte complex. No siccant spinal canal or neural foraminal narrowing. The paravertebral soft tissues are unremarkable. The visualized lung apices are clear. MR/MR cervical spine wo con IMPRESSION: Within the limitations of this study, -No acute intracranial abnormality. -Chronic microangiopathy. -Severe spinal canal stenosis at C3-C4 and C5-C6 with impingement of the cord. There is suggestion of abnormal cord signal at C5-C6, which may reflect compressive myelopathy. There is also moderate spinal canal stenoses at C4-C5 and C6-C7. -Severe bilateral neural foraminal narrowing spanning C3-C4 through C6-C7.
--- NOTE | ~2024-02-12 | MR_ITS ---
EXAMINATION: MRI OF THE BRAIN WITHOUT IV CONTRAST MRI CERVICAL SPINE WITHOUT IV CONTRAST INDICATION: Tremor, altered gait, rigidity. COMPARISON: None available. TECHNIQUE: Multiplanar multisequence MR imaging of the brain and cervical spine was obtained without intravenous contrast. FINDINGS: Motion artifact is present. BRAIN: No acute intracranial hemorrhage or infarct. Encephalomalacic changes in the left parietal lobe. Scattered and confluent periventricular and deep white matter T2/FLAIR hyperintensities, nonspecific however commonly seen with small vessel ischemic disease. No midline shift or hydrocephalus. No acute extra-axial fluid collections. Prominence of the CSF spaces along the cxvvv-xcodpms-esxy-left frontoparietal convexities may represent chronic hygromas. The osseous structures are unremarkable. Partially empty sella. The pineal gland and remaining midline structures are unremarkable. No orbital pathology. Mucosal thickening of the paranasal sinuses with complete opacification of the atelectatic right maxillary sinus. The mastoid air cells are clear. CERVICAL SPINE: Straightening of the normal cervical lordosis. Grade 1 anterolisthesis at C2-C3. Mild retrolisthesis at C3-C4, C5-C6, and C6-C7. Diffusely heterogeneous bone marrow signal is likely degenerative. No acute bone marrow abnormality. The vertebral body heights are preserved. Multilevel disc desiccation and disc height loss, worse and severe at C3-C4. The spinal cord appears mildly atrophic the from the levels of C3-C4 through C6-C7. There is suggestion of abnormal cord signal involving the left aspect of the cord at the level of C5-C6. C2-C3: Bilateral facet arthrosis. Moderate right and fxir-dt-[id number] left neural foraminal narrowing. No significant spinal canal stenosis. C3-C4: Disc osteophyte complex, bilateral uncovertebral hypertrophy, and bilateral facet arthrosis. Severe spinal canal stenosis with impingement of the cord. Severe bilateral neural foraminal narrowing. C4-C5: Disc ossified complex with superimposed left paracentral disc protrusion. Bilateral uncovertebral hypertrophy and facet arthrosis. Moderate spinal canal stenosis with mass effect on the cord. Severe left and moderate right neural foraminal narrowing. C5-C6: Disc osteophyte complex, bilateral uncovertebral hypertrophy, and bilateral facet arthrosis. Markedly severe spinal canal stenosis with impingement of the cord. Severe bilateral neural foraminal narrowing. C6-C7: Disc osteophyte complex, bilateral uncovertebral hypertrophy, and bilateral facet arthrosis. Moderate spinal canal stenosis with mass effect on the cord. Severe bilateral neural foraminal narrowing. C7-T1: Disc osteophyte complex. No siccant spinal canal or neural foraminal narrowing. The paravertebral soft tissues are unremarkable. The visualized lung apices are clear. MR/MR head/brain wo con IMPRESSION: Within the limitations of this study, -No acute intracranial abnormality. -Chronic microangiopathy. -Severe spinal canal stenosis at C3-C4 and C5-C6 with impingement of the cord. There is suggestion of abnormal cord signal at C5-C6, which may reflect compressive myelopathy. There is also moderate spinal canal stenoses at C4-C5 and C6-C7. -Severe bilateral neural foraminal narrowing spanning C3-C4 through C6-C7.
== END 2024-02-12 17:14 | disposition home or self-care (01) ==
LOC: HO.MRI 17:13
PROVIDERS: PCP Family Medicine; Visit Provider Nurse Practitioner Family
DX: R25.1 Tremor, unspecified (principal); R26.9 Unspecified abnormalities of gait and mobility; R29.898 Other symptoms and signs involving the musculoskeletal system; I48.91 Unspecified atrial fibrillation; I10 Essential (primary) hypertension; E11.9 Type 2 diabetes mellitus without complications
CPT/HCPCS: 70551; 72141

== ENCOUNTER 2024-02-17 10:56 | Outpatient (AMB) | payer MEDICARE, BC, SELFPAY ==
[2024-02-17 11:00] VITALS: BP 132/68; PULSE 61; O2SAT 95; BMI 24.5
--- NOTE | 2024-02-17 11:00 | MHC.OFFVIS ---
Intake Vital Signs 02/17/24 11:00 Height 5 ft 11 in Weight 175 lb 11.335 oz BMI 24.5 BP 132/68 Blood Pressure Location Rt brachial Position Sitting Pulse 61 Pulse Source Pulse Oximeter Pulse Oximetry (%) 95 Oxygen Delivery Method Room Air Intake Visit Reasons: RA Intake Note: Patient last seen 11/15/23 presents today for follow up and test results. Non Linear Editor Required: No Accompanied by: Spouse Allergies cats Allergy (Intermediate, Uncoded 02/17/24 11:08) Headache Medication List - Last Reconciled 02/17/24 by Ena Castillo MD acetaminophen (Tylenol Extra Strength) 500 mg PO Q6H PRN adalimumab (Humira Pen) inject one - 40 mg/0.8 mL pen every 2 weeks subcut albuterol sulfate 90 mcg/actuation (ProAir HFA) 2 puffs inhalation Q6H PRN atorvastatin 80 mg PO DAILY azelaic acid 15% 1 appl topical BID azelastine intranasal coenzyme Q10 (Ultra CoQ10) 150 mg PO DAILY cyanocobalamin (vitamin B-12) 500 mcg PO DAILY 30 days doxycycline hyclate 20 mg PO DAILY fluticasone propionate 50 mcg/actuation (Allergy Relief (fluticasone)) 2 sprays intranasal BID folic acid 1 mg PO DAILY gabapentin 300 mg PO BID glimepiride 6 mg PO QAM ketoconazole 2% 1 appl topical DAILY levothyroxine 125 mcg PO DAILY lisinopril 10 mg PO DAILY metformin ER 500 mg PO BID metoprolol succinate ER 50 mg PO DAILY multivitamin 1 tab PO DAILY rivaroxaban (Xarelto) 20 mg PO DAILY terazosin 5 mg PO BEDTIME [wrist splint Wear nightly and as much as possible throughout the day] HPI HPI Comments History of Present Illness Details 78-year-old male with seronegative RA returns for follow-up. On Humira regularly. States that he feels it is working well. Denies any joint pain or stiffness in his hands. He was evaluated by hand surgeon and the plan is to take him for right carpal tunnel release next month followed by left carpal tunnel release the following month. He was also evaluated by neurologist and he was found to have significant cervical spine compression and scheduled to see a neurosurgeon. 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 Condition started the end of July patient noticing generalized stiffness of his neck, shoulders, hands, thighs. Stiffness improves in about 8 hours. Was evaluated by his PCP and was found to have significantly elevated inflammatory markers. He was started on prednisone 15 mg daily with dramatic improvement of his symptoms however his blood sugars were significantly elevated his prednisone was tapered to 7.5 mg daily. Patient felt that the higher dose of prednisone was more helpful. Was also found to have positive Lyme serology and received a 28 day course of doxycycline. He denied any tick bites and denied any activities that would put him at risk of a tick bite. Denies any skin rashes. He also denies any joint pain, jaw claudication, tongue pain. Denies any claudication of his hands or feet. Denies headaches, fevers, weight loss or blurry vision. [facility] Medical History PMR (polymyalgia rheumatica) Low back pain, unspecified Psoriasis Degeneration of intervertebral disc of lumbar region Osteoarthritis Atrial fibrillation Hyperlipidemia Essential hypertension Obstructive sleep apnea Diabetes Hypothyroidism Surgical History H/O knee surgery H/O heart surgery Hx of excision of lamina of lumbar vertebra for decompression of spinal cord Hx of hernia repair Family History Mother Coronary arteriosclerosis Myocardial infarction Father Alcoholism Diabetes Social History Household Members: Spouse Household Members Other:: Alcohol intake: current Alcohol intake frequency: holidays/special occasions only Patient Tobacco Use Status: Former Tobacco user Current occupational status: retired 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 Review of Systems Musc Reports numbness Neuro Reports numbness Physical Exam Vital Signs: Last Vital Signs Pulse 61 02/17/24 11:00 BP 132/68 02/17/24 11:00 Pulse Ox 95 02/17/24 11:00 Oxygen Delivery Method Room Air 02/17/24 11:00 BMI result Body Mass Index 24.5 Const General: cooperative and comfortable Nutritional Appearance: average body habitus Orientation/consciousness: patient oriented x3 Limitations: no limitations HEENT Head: Yes normocephalic and Yes atraumatic Resp Effort & Inspection: normal respiratory effort and able to speak in complete sentences Neuro General: patient oriented x3 Extrem Other: Nontender wrists today and no pain with flexion and extension Nontender PIPs today Bilateral thenar atrophy Normal range of motion of both elbows No ankle swelling or tenderness bilaterally Negative MTP squeeze test Assessment & Plan Assessment & Plan (1) Seronegative rheumatoid arthritis: Comment: Seronegative diagnosed 12/17 has hx of PSO HCQ started 12/17 ineffective & caused PSO flare DC 07/17 MTX started 07/17 ineffective DC 09/2023 Humira 09/2023 effective Code(s): M06.00 - Rheumatoid arthritis without rheumatoid factor, unspecified site Plan: This is a 78-year-old male with seronegative RA returns for follow-up. On Humira 40 mg every other week. In remission. Continue Humira 40 mg every other week. Labs before next visit in 3 months (2) Bilateral carpal tunnel syndrome: Code(s): G56.03 - Carpal tunnel syndrome, bilateral upper limbs Plan: Patient has bilateral thenar atrophy. Bilateral upper extremity EMG showed all bilateral carpal tunnel syndrome as well as ulnar neuropathy as well as significant sensory and motor neuropathy. Cervical spine MRI showed significant compression, he will be evaluated by neurosurgeon. Scheduled for right carpal tunnel release next month and left carpal tunnel release the following month. Patient planning to hold Humira 2 weeks before and resume 2 weeks after. Advised patient to call the clinic if he has a flare-up (3) Adalimumab (Humira) long-term use: Code(s): Z79.620 - shelter (current) use of immunosuppressive biologic Plan: Advised patient to hold Humira with any sign of infection and let us know. Mild leukopenia. Will continue to monitor Plan I spent 26 minutes reviewing patient's chart, evaluating patient, ordering diagnostic workup, counseling patient and documenting in the chart Coding Level of Care Code Est Pt Level 4 (39816) Diagnoses Seronegative rheumatoid arthritis M06.00 Bilateral carpal tunnel syndrome G56.03 Adalimumab (Humira) long-term use Z79.620
== END 2024-02-17 11:33 | disposition home or self-care (01) ==
PROVIDERS: PCP Family Medicine; Visit Provider Student in an Organized Health Care Education/Training Program
DX: M06.00 Rheumatoid arthritis without rheumatoid factor, unspecified site (principal); G56.03 Carpal tunnel syndrome, bilateral upper limbs; Z79.620 Long term (current) use of immunosuppressive biologic
CPT/HCPCS: 99214

== ENCOUNTER → 2024-02-17 10:56 | Outpatient (BNVA) | payer MEDICARE, BC, SELFPAY | PROVIDERS: PCP Family Medicine; Visit Provider Student in an Organized Health Care Education/Training Program | DX: M06.00 Rheumatoid arthritis without rheumatoid factor, unspecified site (principal); G56.03 Carpal tunnel syndrome, bilateral upper limbs; Z79.620 Long term (current) use of immunosuppressive biologic | CPT/HCPCS: 99212 ==

== ENCOUNTER 2024-02-18 13:52 | Outpatient (REF) | payer MEDICARE, BC, SELFPAY ==
--- NOTE | ~2024-02-18 | XR_ITS ---
EXAMINATION: XR CERVICAL SPINE CLINICAL INFORMATION: Disease of spinal cord. COMPARISON: MR cervical spine 02/12/2020. TECHNIQUE: AP, lateral neutral, flexion and extension views of the cervical spine. FINDINGS: Minimal anterolisthesis of C2 on C3 with extension, reduces with flexion. Bones are diffusely demineralized. Multilevel cervical spondylosis with advanced degenerative changes and loss of disc space height at C3-C4, C5-C6, and C6-C7. Limited visualization of C7 due to overlying bony and soft tissue structures. XR/XR cervical spine 4V IMPRESSION: Multilevel cervical spondylosis with advanced degenerative changes and loss of disc space height at C3-C4, C5-C6, and C6-C7.
== END 2024-02-18 13:53 | disposition home or self-care (01) ==
LOC: HO.HOSX 13:52
PROVIDERS: PCP Family Medicine; Visit Provider Physician Assistant
DX: M48.02 Spinal stenosis, cervical region (principal); G95.9 Disease of spinal cord, unspecified
CPT/HCPCS: 72050; 99202

== ENCOUNTER 2024-02-18 13:52 | Outpatient (AMB) | payer MEDICARE, BC, SELFPAY ==
--- NOTE | 2024-02-18 14:06 | A.SPINEOV_ITS ---
Intake Intake Visit Reasons: spinal stenosis/carpal tunnel Intake Note: Mr. Amaral is here today c/o Back pain/Carpal Tunnel. Sand Caster Required: No Allergies cats Allergy (Intermediate, Uncoded 02/17/24 11:08) Headache Assessment & Plan Assessment & Plan (1) Cervical stenosis of spinal canal: Code(s): M48.02 - Spinal stenosis, cervical region Plan Dear BRANDT Khan, Thank you for referring Maxim to our office today. He is a pleasant 78-year-old male who comes in today with a chief complaint of posterior neck pain and gait disturbances. He reports associated diagnoses of bilateral carpal tunnel syndrome confirmed by EMG, which produces bilateral hand weakness, occasional shooting pains up his ventral forearm originating from the wrist, and nocturnal symptoms which he manages with bilateral wrist braces. He is currently an established patient of Dr. Ceballos and is scheduled to undergo bilateral carpal tunnel release in February. He was evaluated by Neurology here at [facility] due to gait disturbances and tremors. After MRI imaging he was referred to our office due to severe stenosis in the cervical spine. Floyd reports that his only real cervical symptom is a feeling of posterior neck pain which is low- grade (3/10) but is constant. He does report that about 1 year ago he noticed muscle wasting in his hands, which was accompanied by difficulty walking. He reports no shooting pains down his bilateral upper extremities, and no aggravating or alleviating factors. He does have a pertinent past medical history of a L4-[address] completed [address] Dr[address] Julian in 2022. PMH: Hx of L4-5 lumbar decompression in [address] Julian at [facility]. Hx of cardiac ablation surgery, Hx of TKA, PMR, Psoriasis, Osteoarthritis, Atrial fibrillation, Hyperlipidemia, Essential hypertension, Obstructive sleep apnea, T2DM, Hypothyroidism. Social hx: Patient does not smoke, reports no substance use. Medications: Tylenol, Humira, albuterol, atorvastatin, azelaic acid, azelastine, coenzyme Q10, vitamin B12, Flonase, folic acid, gabapentin, glimepiride, ketoconazole, levothyroxine, lisinopril, metformin, metoprolol, rivaroxaban, terazosin. No evidence of agnosia or anosognosia on exam. Allergies: Cats. Physical exam: CN II-XII grossly intact. The patient has 5/5 strength in his upper and lower extremities. No sensational deficits. Reflexes are 2+ intact. The patient is able to ambulate well but does have a slightly spastic gait. He rises from a seated position without difficulty. (-) Rivers's, (-) clonus, (-) Lhermitte's. Patient reports no symptom production from Tinel's testing at the wrist. (+) Phalen's bilaterally. He is notable atrophy between the thumb and index finger on his bilateral hands. No evidence of agnosia or anosognosia on exam. (-) Rhomberg's. (-) Pronator drift. Patient completes finger to nose testing without issue. Imaging review: MRI of the cervical spine completed at [facility] shows severe central canal and bilateral foraminal stenosis at C3-4. There is moderate bilateral foraminal stenosis and severe central canal stenosis at C4-5. There is severe central canal stenosis and bilateral foraminal stenosis at C5-6. And there is moderate central canal stenosis and moderate bilateral foraminal stenosis at C6- 7. There is no obvious evidence of signal change, even when compared to STIR sequences. There is severe loss of disc height and degenerative disc disease at C3-4, with what appears to be a mild grade 1 spondylolisthesis at this level. XR imaging obtained after this visit shows no significant movement of the cervical spine with flexion / extension. On brain MRI the patient has a small area of encephalomalacia in the left parietal lobe. Appears chronic and likely related to prior vascular event. Impression: Maxim is a pleasant 78 y/o male who comes in today with a CC of posterior neck pain and gait disturbances. He states his symptoms have been ongoing for the past year. His bilateral carpal tunnel syndromes are currently being addressed by Dr. Ceballos. He has severe central canal and foraminal stenosis found at multiple levels in the cervical spine. Thankfully, he has not developed any significant cervical radiculopathy or upper extremity weakness. No myelopathic relfexes on exam. Even given the atrophy in his bilateral hands, he is able to exhibit 5/5 hand strength and complete interossei muscle strength. I reveiwed his symptoms and imaging with Dr. Barboza who believes the patient should follow through with his bialteral carpal tunnel surgery, then follow up in our office with Dr. Barboza for a repeat neurological exam to ensure no acute neurosurgical interventions are warranted. Thank you for allowing us to care for your patient. The total time spent with this visit with this patient was 60 minutes reviewing history, physical exam, MRI imaging review, and implementation of treatment plan or further diagnostic testing Rafa Barboza MD,PhD [facility] Orders: Orders XR cervical spine 4V Today G95.9 - Disease of spinal cord, unspecified Coding Level of Care Code Global (45225) Diagnoses Cervical stenosis of spinal canal M48.02
== END 2024-02-18 14:45 | disposition home or self-care (01) ==
PROVIDERS: PCP Family Medicine; Referring Provider Nurse Practitioner Family; Visit Provider Physician Assistant
DX: M48.02 Spinal stenosis, cervical region (principal)
CPT/HCPCS: 99204

== ENCOUNTER 2024-03-05 10:48 | Day surgery (SDC) | payer MEDICARE, BC, SELFPAY ==
[2024-03-05 11:04] VITALS: BMI 24.2
--- NOTE | 2024-03-05 11:28 | MHC.SHP ---
Pre-Procedural Eval Section A - 24 Hr Update-Section A only Date of Service: 03/05/24 The patient is an INPATIENT: No Changes since office visit: No Cold of Flu in the past 2 weeks, No New Medical Problems, No Changes in Medication and No Patient answered all questions The patient has been examined within 24 hours of the surgical procedure. The History & Physical has been completed within 30 days and I have reviewed it.: Yes Section B - Complete if H&P > 30 days Chief Complaint: Carpal tunnel syndrome, right upper limb Allergies: Allergies Allergy/AdvReac Type Severity Reaction Status Date / Time cats Allergy Intermediate Headache Uncoded 03/05/24 11:09 Exam Exam Comment: Right carpal tunnel syndrome Plan Diagnosis/Plan: Unchanged I have reviewed the history and physical and performed a pertinent physical examination on my patient. No changes have occurred unless specified. Time Spent With Patient Time: Total time managing care of this patient today ____ minutes.
--- NOTE | 2024-03-05 11:28 | W.PM.OPN ---
Operative Note Operative Note Date of Service: 03/05/24 Narrative: Preop diagnosis: 1. Right Carpal tunnel syndrome Postop diagnosis: same Procedure: 1. Right Carpal tunnel release Surgeon: Tessa Ceballos MD Anesthesia: local block using 1% lidocaine with epinephrine Findings: Thickened transverse carpal ligament. EBL: Less than 5 mL Specimens: None Complications: None Disposition: Brought to recovery room in stable condition Plan: Follow-up for 10-14 days for wound check and suture removal Indications: The patient is 78 years old, with right carpal tunnel syndrome that has been unresponsive to nonoperative management. The risks and benefits of operative treatment including but not limited to risk of damage to blood vessels, nerves, tendons, infection, persistent pain, persistent symptoms, or possible need for additional surgery were discussed with the patient and the patient wishes to proceed with surgery. Procedure: Once consent was obtained a local block was performed using a combination of 1% lidocaine with epinephrine. The patient was then brought back to the operating suite and placed on the operative table in supine position. The right upper extremity was prepped and draped in a standard surgical fashion. Once assured that we had a good block, a 2.0 cm longitudinal incision was made centered over the carpal tunnel. The incision was made through the skin to the subcutaneous tissues using a #15 blade. Dissection was made down to the level of the transverse carpal ligament with care being taken to protect the palmar cutaneous nerve. Once the transverse carpal ligament was clearly visualized, a longitudinal incision was made in the transverse carpal ligament 1st using a #15 blade, then using tenotomy scissors under direct visualization. Care was taken to look for and protect the motor branch of the median nerve when seen in this area. Once satisfied with our carpal tunnel release the wound was copiously irrigated with normal saline and hemostasis was obtained with a brief period of local pressure. The skin edges were reapproximated with some 5.0 nylon suture material and a sterile dressing was applied. The patient appears to have tolerated the procedure well and with no complications. All digits were well vascularized at the conclusion of the case.
[2024-03-05 12:32] VITALS: BP 178/81; PULSE 63; RESP 18; TEMP 36.7
== END 2024-03-05 12:39 | disposition home or self-care (01) ==
PROVIDERS: PCP Family Medicine; Visit Provider Orthopaedic Surgery
PROC: (CPT 64721; principal; 2024-03-05 13:30)
DX: G56.01 Carpal tunnel syndrome, right upper limb (principal); R20.0 Anesthesia of skin; G62.9 Polyneuropathy, unspecified; I10 Essential (primary) hypertension; E11.9 Type 2 diabetes mellitus without complications; M06.00 Rheumatoid arthritis without rheumatoid factor, unspecified site; M35.3 Polymyalgia rheumatica; G47.33 Obstructive sleep apnea (adult) (pediatric); Z79.01 Long term (current) use of anticoagulants; Z79.620 Long term (current) use of immunosuppressive biologic; Z98.890 Other specified postprocedural states; Z87.891 Personal history of nicotine dependence
CPT/HCPCS: 64721; J0171

== ENCOUNTER → 2024-03-05 10:48 | Outpatient (BNV) | payer MEDICARE, BC, SELFPAY | PROVIDERS: PCP Family Medicine; Visit Provider Orthopaedic Surgery | DX: G56.01 Carpal tunnel syndrome, right upper limb (principal) | CPT/HCPCS: 64721 ==

== ENCOUNTER 2024-03-18 12:55 | Outpatient (AMB) | payer MEDICARE, BC, SELFPAY ==
--- NOTE | 2024-03-18 13:06 | MHC.OFFVIS ---
Intake Visit Reasons: PO RT CTR 03/05/24 AR Intake Note: Maxim is a 78 year old -- hand dominant male who presents today for post operative appointment s/p Right CTR release. He reoprts that he is doing well with mist of his pain, numbness and tingling resolved. Allergies cats Allergy (Intermediate, Uncoded 03/18/24 13:07) Headache HPI HPI PO RT CTR 03/05/24 AR: Details: Maxim is a 78 year old right hand dominant man who presents S/P right carpal tunnel release, DOS: 03/05/24. He says he is doing well and his sensation has been improving. He is happy with the results of his surgery. He says he has numbness in the thumb, index, and middle fingers of his left hand. His symptoms are intermittent, but daily, worse at night. He denies any small finger numbness. He reports a hx of neuropathy affecting his feet, and he says he met with a Neurologist in [place] to discuss his NCS results and his muscle wasting. He says he was told that this was due to Diabetic neuropathy. He says his feet are completely numb and this has caused issues with his balance and ability to walk. He says he has a hx of spine surgery due to arthritis. He has RA and is on Humira. He is on Xarelto and is a Diabetic, which he says is well controlled. [facility] Medical History PMR (polymyalgia rheumatica) Low back pain, unspecified Psoriasis Degeneration of intervertebral disc of lumbar region Osteoarthritis Atrial fibrillation Hyperlipidemia Essential hypertension Obstructive sleep apnea Diabetes Hypothyroidism Surgical History H/O knee surgery H/O heart surgery Hx of excision of lamina of lumbar vertebra for decompression of spinal cord Hx of hernia repair Family History Mother Coronary arteriosclerosis Myocardial infarction Father Alcoholism Diabetes Social History Household Members: Spouse Household Members Other:: Alcohol intake: current Alcohol intake frequency: holidays/special occasions only Patient Tobacco Use Status: Former Tobacco user Current occupational status: retired 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 Sutures removed and Steri-Strips applied He can make a fist and extend all his digits Sensation is improving but not yet normal in the right hand Regarding the left hand he does have some decreased subjective sensation in the median nerve distribution. Regarding the ulnar nerve bilaterally we see severe intrinsic wasting but intact sensation in the ulnar nerve distribution including the ulnar aspect of the hand. Weakness of finger abduction, as well as positive Froment sign. Cap refill is brisk Nerve Conduction Study: Moderately severe diffuse sensory motor peripheral neuropathy in the upper extremities with superimposed ulnar neuropathy & carpal tunnel syndrome bilaterally. EMG of the C5-T1 innervated muscles bilaterally consistent with chronic denervation in the intrinsic hand muscles. Dr. Padron 12/26/22 Psych Appearance: grossly normal Affect: normal affect Attitude: cooperative Assessment & Plan Assessment & Plan (1) Carpal tunnel syndrome of right wrist: Code(s): G56.01 - Carpal tunnel syndrome, right upper limb Category: Medical (2) Carpal tunnel syndrome of left wrist: Code(s): G56.02 - Carpal tunnel syndrome, left upper limb Category: Medical (3) Adalimumab (Humira) long-term use: Code(s): Z79.620 - jail (current) use of immunosuppressive biologic Category: Medical (4) Seronegative rheumatoid arthritis: Comment: Seronegative diagnosed 12/17 has hx of PSO HCQ started 12/17 ineffective & caused PSO flare DC 07/17 MTX started 07/17 ineffective DC 09/2023 Humira 09/2023 effective Code(s): M06.00 - Rheumatoid arthritis without rheumatoid factor, unspecified site Category: Medical Plan Assessment & plan: 1. Right Carpal tunnel syndrome, S/P release DOS: 03/05/24 Pre-operative symptoms intermittent, but daily, worse at night Now with normal sensation The patient appears to be doing well post-operatively I educated him about the post-operative course I explained the signs and symptoms of infection, if the patient develops any new or worsening erythema, drainage, pain, or warmth they should contact the clinic or attend the ED. I discussed activity modifications, he is to lift nothing heavier than a cellphone for the next two weeks He will perform gentle ROM exercises at home He should avoid any underwater activities for the next 5 days He should gently massage about the incision site to reduce the risk of hypersensitivity 2. Left Carpal tunnel syndrome, moderate-severe Pre-operative symptoms intermittent, but daily, worse at night I educated her about these conditions I discussed operative and non-operative treatment options. The patient would like to proceed with surgery The risks and benefits of operative treatment were discussed with the patient and the patient wishes to proceed with surgery. These risks include, but are not limited to risk of damage to blood vessels, nerves, tendons, infection, recurrence, incomplete relief of preoperative symptoms, persistent pain, possible need for further surgery and the risks associated with regional blocks and anesthesia. The plan is to take the patient to the operating room sometime on 04/06/24for the following procedures: 1. Left carpal tunnel release, under local All of the preoperative paperwork including the consent was reviewed today. All the patient's questions were answered. He denies asthma, lung, kidney issues He has Diabetes, which is well-controlled, is on Xarelto for Afib, and takes Humira for his RA. He says his most recent HgA1c was ~7.2% but is unsure when this was tested. He is going to take his next dose of Humira and then stop prior to his DOS 3. Bilateral hand intrinsic wasting, severe Normal sensation in the ulnar nerve distribution He has a hx of neuropathy affecting his feet as well, along with gait abnormalities, but no sensory loss in the ulnar nerve distribution He had an appointment with ALVINA Cross, who works with Dr. Auguste who is a Neurologist at [place] on 01/10/24. He says at this appointment he was told this was caused by Diabetic neuropathy Scribed for Tessa Ceballos MD by Ori May, medical delivery technician, on 03/18/24 at 1:20 PM, EST. Coding Level of Care Code Est Pt Level 3 (61722) Diagnoses Carpal tunnel syndrome of right wrist G56.01 Carpal tunnel syndrome of left wrist G56.02 Adalimumab (Humira) long-term use Z79.620 Seronegative rheumatoid arthritis M06.00
== END 2024-03-18 13:47 | disposition home or self-care (01) ==
PROVIDERS: PCP Family Medicine; Visit Provider Orthopaedic Surgery
DX: G56.03 Carpal tunnel syndrome, bilateral upper limbs (principal); Z79.620 Long term (current) use of immunosuppressive biologic; M06.00 Rheumatoid arthritis without rheumatoid factor, unspecified site
CPT/HCPCS: 99214

== ENCOUNTER → 2024-03-18 12:55 | Outpatient (BNVA) | payer MEDICARE, BC, SELFPAY | PROVIDERS: PCP Family Medicine; Visit Provider Orthopaedic Surgery | DX: Z47.89 Encounter for other orthopedic aftercare (principal); G56.02 Carpal tunnel syndrome, left upper limb; M06.00 Rheumatoid arthritis without rheumatoid factor, unspecified site; Z79.620 Long term (current) use of immunosuppressive biologic; Z98.890 Other specified postprocedural states | CPT/HCPCS: 99212 ==

== ENCOUNTER 2024-04-06 06:24 | Day surgery (SDC) | payer MEDICARE, BC, SELFPAY ==
[2024-04-06 06:47] VITALS: BP 179/80; PULSE 62; RESP 18; TEMP 36.2; O2SAT 988; BMI 23.7
[2024-04-06 07:40] VITALS: BP 179/80; PULSE 62
--- NOTE | 2024-04-06 08:05 | MHC.SHP ---
Pre-Procedural Eval Section A - 24 Hr Update-Section A only Date of Service: 04/06/24 The patient is an INPATIENT: No Changes since office visit: No Cold of Flu in the past 2 weeks, No New Medical Problems, No Changes in Medication and No Patient answered all questions The patient has been examined within 24 hours of the surgical procedure. The History & Physical has been completed within 30 days and I have reviewed it.: Yes Section B - Complete if H&P > 30 days Chief Complaint: Carpal tunnel syndrome, left upper limb Allergies: Allergies Allergy/AdvReac Type Severity Reaction Status Date / Time cats Allergy Intermediate Headache Uncoded 03/18/24 13:07 Plan I have reviewed the history and physical and performed a pertinent physical examination on my patient. No changes have occurred unless specified. Time Spent With Patient Time: Total time managing care of this patient today ____ minutes.
--- NOTE | 2024-04-06 08:05 | W.PM.OPN ---
Operative Note Operative Note Date of Service: 04/06/24 Narrative: Preop diagnosis: 1. Left Carpal tunnel syndrome Postop diagnosis: same Procedure: 1. Left Carpal tunnel release Surgeon: Tessa Ceballos MD Anesthesia: local block using 1% lidocaine with epinephrine Findings: Thickened transverse carpal ligament. EBL: Less than 5 mL Specimens: None Complications: None Disposition: Brought to recovery room in stable condition Plan: Follow-up for 10-14 days for wound check and suture removal Indications: The patient is 78 years old, with left carpal tunnel syndrome that has been unresponsive to nonoperative management. The risks and benefits of operative treatment including but not limited to risk of damage to blood vessels, nerves, tendons, infection, persistent pain, persistent symptoms, or possible need for additional surgery were discussed with the patient and the patient wishes to proceed with surgery. Procedure: Once consent was obtained a local block was performed using a combination of 1% lidocaine with epinephrine. The patient was then brought back to the operating suite and placed on the operative table in supine position. The left upper extremity was prepped and draped in a standard surgical fashion. Once assured that we had a good block, a 2.0 cm longitudinal incision was made centered over the carpal tunnel. The incision was made through the skin to the subcutaneous tissues using a #15 blade. Dissection was made down to the level of the transverse carpal ligament with care being taken to protect the palmar cutaneous nerve. Once the transverse carpal ligament was clearly visualized, a longitudinal incision was made in the transverse carpal ligament 1st using a #15 blade, then using tenotomy scissors under direct visualization. Care was taken to look for and protect the motor branch of the median nerve when seen in this area. Once satisfied with our carpal tunnel release the wound was copiously irrigated with normal saline and hemostasis was obtained with a brief period of local pressure. The skin edges were reapproximated with some 5.0 nylon suture material and a sterile dressing was applied. The patient appears to have tolerated the procedure well and with no complications. All digits were well vascularized at the conclusion of the case.
[2024-04-06 08:53] VITALS: BP 186/81; PULSE 71; RESP 16
== END 2024-04-06 08:56 | disposition home or self-care (01) ==
PROVIDERS: PCP Family Medicine; Visit Provider Orthopaedic Surgery
PROC: (CPT 64721; principal; 2024-04-06 07:30)
DX: G56.02 Carpal tunnel syndrome, left upper limb (principal); R20.0 Anesthesia of skin; M35.3 Polymyalgia rheumatica; M06.00 Rheumatoid arthritis without rheumatoid factor, unspecified site; M54.50 Low back pain, unspecified; M51.36 Other intervertebral disc degeneration, lumbar region; L40.9 Psoriasis, unspecified; I48.91 Unspecified atrial fibrillation; E78.5 Hyperlipidemia, unspecified; E11.9 Type 2 diabetes mellitus without complications; E03.9 Hypothyroidism, unspecified; Z79.620 Long term (current) use of immunosuppressive biologic; Z79.01 Long term (current) use of anticoagulants; Z98.890 Other specified postprocedural states; Z87.891 Personal history of nicotine dependence
CPT/HCPCS: 64721; J0171; J2795

== ENCOUNTER → 2024-04-06 06:24 | Outpatient (BNV) | payer MEDICARE, BC, SELFPAY | PROVIDERS: PCP Family Medicine; Visit Provider Orthopaedic Surgery | DX: G56.02 Carpal tunnel syndrome, left upper limb (principal) | CPT/HCPCS: 64721 ==

== ENCOUNTER 2024-04-14 11:30 | Outpatient (AMB) | payer MEDICARE, BC, SELFPAY ==
[2024-04-14 11:30] VITALS: BP 116/74; PULSE 66; O2SAT 98; BMI 24.4
--- NOTE | 2024-04-14 11:30 | A.OFFVIS_ITS ---
Vital Signs 04/14/24 11:30 Height 5 ft 11 in Weight 175 lb BMI 24.4 BP 116/74 Blood Pressure Location Rt brachial Position Sitting Pulse 66 Pulse Source Pulse Oximeter Pulse Oximetry (%) 98 Oxygen Delivery Method Room Air Intake Visit Reasons: f/u Bilat carpal tunnel-CONF Intake Note: Patient presents for follow up bilateral carpal tunnel. Maureen had carpal tunnel surgery last week Allergies cats Allergy (Intermediate, Uncoded 04/14/24 11:34) Headache Medication List - Last Reconciled 04/14/24 by ALVINA Cross acetaminophen (Tylenol Extra Strength) 500 mg PO Q6H PRN adalimumab (Humira Pen) inject one - 40 mg/0.8 mL pen every 2 weeks subcut albuterol sulfate 90 mcg/actuation (ProAir HFA) 2 puffs inhalation Q6H PRN atorvastatin 80 mg PO DAILY azelaic acid 15% 1 appl topical BID azelastine intranasal coenzyme Q10 (Ultra CoQ10) 150 mg PO DAILY cyanocobalamin (vitamin B-12) 500 mcg PO DAILY 30 days doxycycline hyclate 20 mg PO DAILY fluticasone propionate 50 mcg/actuation (Allergy Relief (fluticasone)) 2 sprays intranasal BID folic acid 1 mg PO DAILY gabapentin 300 mg PO BID glimepiride 6 mg PO QAM ketoconazole 2% 1 appl topical DAILY levothyroxine 125 mcg PO DAILY lisinopril 10 mg PO DAILY metformin ER 500 mg PO BID metoprolol succinate ER 50 mg PO DAILY multivitamin 1 tab PO DAILY oxycodone-acetaminophen 5-325 mg 1 tab PO Q6H PRN rivaroxaban (Xarelto) 20 mg PO DAILY terazosin 5 mg PO BEDTIME [wrist splint Wear nightly and as much as possible throughout the day] HPI Comments Details: Right-handed 78-yr-old male presents for f/u visit. Pt is accompanied by his . Since the last visit, pt has undergone extensive work-up. 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 possible superimposed bilateral R > L median mononeuropathies at the wrists. Without evidence of of bilateral ulnar neuropathies at the elbows or myopathy. BLE EMG/NCS resulst c/w diabetic polyneuropathy; BLE R > L polyneuropathy; possible superimposed BLE R > L L5-S1 radiculopathies or lower lumbar/upper sacral plexopathies. Without EMG evidence of myopathy. MRI brain w/o: MR head/brain wo: No acute intracranial abnormality. Chronic microangiopathy. C-spine MRI w/o- Severe spinal canal stenosis at C3-C4 and C5-C6 with cord impingement of the cord, and suggetsion of abnormal cord signal at C5- C6/compressive myelopathy. Moderate spinal canal stenoses at C4-C5 and C6-C7. Severe bilateral neural foraminal narrowing at C3-C4 through C6-C7. Labs were notable for elevated MMA and homocysteine and low norm B-12. No gammopathies were observed. Total urine protein was elevated- likely r/t diabetes. Since, pt has had neurosurgery consult w/ Dr Barboza. No surgical intervention advised, however pt states that he has better understanding of his neck pain. He has f/u w/ Dr zacarias 04/22. We have increased B-12 supplement. Pt has held his Humira since February 16. Pt has since undergone bilateral carpal tunnel repair w/o complication- left carpal tunnel was done 1 week ago. He is doing simple hand exercises at home. Pt notes that: He still feels his balance is still poor, especially with stairs. He does have a walking stcik at home. He notes that he still has bilateral hand muscle atrophy. He has not noticed increased stiffness. He denies any swallowing issues. He denies muscle cramps, muscle twitching, drooling. ADL status: Ind IADL status: Ind Fine-motor skills: He has some difficulty w/ buttons. Writing is not as easy as it used to be a yr ago. No issues with zippers, cutting, or writing. Hypophonia: Denies Hyposmia: Denies Dysphagia: Denies Drooling: Denies Orthostatic lightheadedness: Denies Constipation: Occasionally- attributes to meds. Slowness: Slwow- unchanged. Freezing episodes: Denies. Tremor: None Stiffness: Has not noticed an increase in stiffness. Prone to back stiffness- has arthritis, h/o sciatica. Has history of neck pain and stiffness. Gait changes: Feels like he wobbles when walking. He needs to hold onto something when going up steps. Uses a walking stick when for longer outdoor walks. No actual falls. After his right TKR, he was advised to use a shoe lift and left shoe due to right TKR has caused a slight limb length discrepancy. Sleep difficulty: Uses CPAP- f/b [facility] Dr Bills. Denies parasomnias. Memory impairment: Denies. Hallucinations: None. Usual exercise: Walks, rides a recumbent bike, and stretches most days. Interval work-up: 02/27/24, BLE eMG/NCS: IMPRESSION: ?Abnormal study. 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 ?Findings are consistent with, but nonspecific for, diabetic polyneuropathy. * There is EMG evidence of subacute denervation affecting distal greater than proximal muscles in right greater than left lower extremities, consistent with the underlying polyneuropathy. ?However, because of the severity of the underlying polyneuropathy, superimposed right greater than left L5-S1 radiculopathies or lower lumbar/upper sacral plexopathies cannot be excluded o n the basis of this study. ?Clinical correlation with lumbar imaging studies is advised. * No EMG evidence of myopathy affecting studied muscles in the lower extremities. , BUE EMG/NCS: IMPRESSION: ?Abnormal study. * ?There is EMG evidence of [id number] subacute denervation affecting right greater than left upper extremity muscles innervated by C5-C8 nerve roots, including cervical paraspinal muscles, consistent with polyradiculopathy. * There is nerve conduction study evidence of a moderate large-fiber length- dependent sensorimotor polyneuropathy affecting the upper extremities, including demyelination and axonal loss. ?Findings are consistent with, but nonspecific for, diabetic polyneuropathy. * Because of the underlying polyneuropathy, superimposed bilateral median mononeuropathies at the wrists (carpal tunnel syndromes), particularly on the right side, cannot be excluded. * No definite nerve conduction study evidence of bilateral ulnar neuropathies at the elbows (cubital tunnel syndromes). * No EMG evidence of myopathy affecting studied muscles in the upper extremities. * ?Upper motor neuron pathology, including myelopathy, is not evaluated by this study. ? 02/12/24, MR/MR head/brain and c-spine wo con IMPRESSION: Within the limitations of this study, -No acute intracranial abnormality. -Chronic microangiopathy. -Severe spinal canal stenosis at C3-C4 and C5-C6 with impingement of the cord. There is suggestion of abnormal cord signal at C5-C6, which may reflect compressive myelopathy. There is also moderate spinal canal stenoses at C4-C5 and C6-C7. -Severe bilateral neural foraminal narrowing spanning C3-C4 through C6-C7. 02/18/24, XR/XR cervical spine 4V IMPRESSION: Multilevel cervical spondylosis with advanced degenerative changes and loss of disc space height at C3-C4, C5-C6, and C6-C7. 01/22/24 01/22/24 08:00 08:20 WBC 4.5 L RBC 4.52 L Hgb 13.5 L Hct 42.0 MCV 92.9 MCH 29.9 Sodium 143 Potassium 3.9 Chloride 107 Carbon Dioxide 26 Anion Gap 14 BUN 18 H Creatinine 0.89 Hemoglobin A1c % 6.9 H Calcium 9.5 Iron 68 TIBC 275 % Saturation 25 Unsat Iron Binding 207 Total Bilirubin 0.9 AST 31 ALT 34 Alkaline Phosphatase 75 Vitamin B12 271 Methylmalonic Acid 1177 H Folate 15.8 Homocysteine 23.3 H TSH 0.80 Ur Creatinine 24 Hour 0.99 Ur Albumin 24 Hour 100 Ur Total Protein 24 Hr 166 H Protein/Creat Ratio 24h 167 H Ur Protein/Creat Ratio mg/mg 0.167 H U Ahyge-7-Mktaonuo 0 U Zvuyj-5-Kcdfeazf 0 U Beta Globulin 0 U Gamma Globulin 0 PFSH Medical History PMR (polymyalgia rheumatica) Low back pain, unspecified Psoriasis Degeneration of intervertebral disc of lumbar region Osteoarthritis Atrial fibrillation Hyperlipidemia Essential hypertension Obstructive sleep apnea Diabetes Hypothyroidism Surgical History H/O knee surgery H/O heart surgery Hx of excision of lamina of lumbar vertebra for decompression of spinal cord Hx of hernia repair Family History Mother Coronary arteriosclerosis Myocardial infarction Father Alcoholism Diabetes Social History Household Members: Spouse Household Members Other:: Alcohol intake: current Alcohol intake frequency: holidays/special occasions only Patient Tobacco Use Status: Former Tobacco user Current occupational status: retired 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 Review of Systems Const All systems reviewed & are unremarkable except as noted in HPI and below Physical Exam Vital Signs: Last Vital Signs Pulse 66 04/14/24 11:30 BP 116/74 04/14/24 11:30 Pulse Ox 98 04/14/24 11:30 Oxygen Delivery Method Room Air 04/14/24 11:30 BMI result Body Mass Index 24.4 Const General: cooperative and no acute distress Resp Effort & Inspection: normal respiratory effort and able to speak in complete sentences Neuro Other: General: Alert and oriented x3 Expression: Intact Voice: Intact Tremor: Mild left rest postural tremor Finger nose: Intact Tone: Mild LUE tone Hand- Bilateral Intrinsic hand muscle wasting. Mild left hand forge tender wekaness. Improved bilateral pinch grasp. Dyskinesia: None FFM: Very mild decrease in LUE BUE OBDULIA: decreased speed on left- mild. Foot taps: Decreased on left Gait: Right arm droop, decreased left arm swing, shorter steps, right higher step, unsteady during turns. Psych: Pleasant affect Assessment & Plan Assessment & Plan (1) Altered gait: Code(s): R26.9 - Unspecified abnormalities of gait and mobility Category: Medical (2) Sensory motor neuropathy: Comment: BUE moderately severe diffuse sensorimotor peripheral neuropathy. Code(s): G62.9 - Polyneuropathy, unspecified Category: Medical (3) Neuroforaminal stenosis of cervical spine: Code(s): M48.02 - Spinal stenosis, cervical region Category: Medical (4) Diabetes: Code(s): E11.9 - Type 2 diabetes mellitus without complications Category: Medical (5) Vitamin B12 deficiency: Code(s): E53.8 - Deficiency of other specified B group vitamins Category: Medical Plan Reviewed interval work-up and response to bilateral CTS repair. Pt has had improved BUE forge tender and pinch strength. Continues to have bilateral intrinsic muscle atrophy- likely cervicogenic. Discussed that gait difficulties is likely multi-factorial, w/ likely predominant etiology of cervical spinal stenosis. Pt advised to start PT- once Dr Ceballos clears pt- PT order give along w/ copy of c-spine MRI report. Will recheck labs. No current indications for an upper motor neuron disease process. F/u w/ Dr Ceballos, Dr Barboza, and Dr Castillo as scheduled. Monitor gait, tremor, stiffness- if worsens consider DaTscan. Pt seen in c/w Dr Terra Parra. Orders: Orders PT Evaluation and Treatment Today G62.9 - Polyneuropathy, unspecified, M48.02 - Spinal stenosis, cervical region, R26.9 - Unspecified abnormalities of gait and mobility Homocysteine Today E11.9 - Type 2 diabetes mellitus without complications, E53.8 - Deficiency of other specified B group vitamins, I10 - Essential (primary) hypertension CRP High Sensitivity Today E11.9 - Type 2 diabetes mellitus without complications, E53.8 - Deficiency of other specified B group vitamins, I10 - Essential (primary) hypertension Methylmalonic Acid Today E11.9 - Type 2 diabetes mellitus without complications, E53.8 - Deficiency of other specified B group vitamins, I10 - Essential (primary) hypertension Erythrocyte Sedimentation Rate Today E11.9 - Type 2 diabetes mellitus without complications, E53.8 - Deficiency of other specified B group vitamins, I10 - Essential (primary) hypertension Complete Blood Count Auto Diff Today E11.9 - Type 2 diabetes mellitus without complications, E53.8 - Deficiency of other specified B group vitamins, I10 - Essential (primary) hypertension Basic Metabolic Panel Today E11.9 - Type 2 diabetes mellitus without complications, E53.8 - Deficiency of other specified B group vitamins, I10 - Essential (primary) hypertension IRON PROFILE Today E11.9 - Type 2 diabetes mellitus without complications, E53.8 - Deficiency of other specified B group vitamins, I10 - Essential (primary) hypertension Vitamin B12 and Folate Today E11.9 - Type 2 diabetes mellitus without complications, E53.8 - Deficiency of other specified B group vitamins, I10 - Essential (primary) hypertension Coding Level of Care Code Est Pt Level 4 (84443) Complex EM visit Add On G2211 Diagnoses Altered gait R26.9 Sensory motor neuropathy G62.9 Neuroforaminal stenosis of cervical spine M48.02 Diabetes E11.9 Vitamin B12 deficiency E53.8
== END 2024-04-14 12:37 | disposition home or self-care (01) ==
PROVIDERS: PCP Family Medicine; Visit Provider Nurse Practitioner Family
DX: R26.9 Unspecified abnormalities of gait and mobility (principal); G62.9 Polyneuropathy, unspecified; M48.02 Spinal stenosis, cervical region; E11.9 Type 2 diabetes mellitus without complications; E53.8 Deficiency of other specified B group vitamins
CPT/HCPCS: 99214; G2211

== ENCOUNTER 2024-04-14 12:42 | Outpatient (REF) | payer MEDICARE, BC, SELFPAY ==
[2024-04-14 18:54] LABS: MANUAL DIFF FLAG NO
[2024-04-14 19:07] LABS: Basophils Absolute Auto 0.1 X10*3/uL (0.0-0.2); Basophils Percent Auto 1.8 % (0-2); Eosinophils Absolute Auto 0.3 X10*3/uL (0.0-0.4); Eosinophils Percent Auto 5.7 % (0-4); Hematocrit 39.7 % (42.0-52.0); Imm Gran Abs Auto 0.01 X10*3/uL (0.00-0.03); Imm Gran Pct Auto 0.2 % (0.0-0.4); Lymphocytes Absolute Auto 0.9 X10*3/uL (1.2-4.9); Lymphocytes Percent Auto 20.2 % (20-40); Mean Corpuscular HGB Conc 32.7 g/dl (31.0-36.0); Mean Corpuscular Hemoglobin 30.7 pg (27.0-33.0); Mean Corpuscular Volume 93.9 fL (80.0-98.0); Mean Platelet Volume 10.9 fL (9.4-12.4); Monocytes Absolute Auto 0.4 X10*3/uL (0.1-1.2); Monocytes Percent Auto 9.5 % (2-11); Neutrophils Absolute Auto 2.9 x10*3/uL (2.0-8.3); Neutrophils Percent Auto 62.6 % (45-73); Platelet Count 202 X10*3/uL (160-400); Red Blood Count 4.23 X10*6/uL (4.60-5.80); Red Cell Distribution Width 13.9 % (11.0-16.0); White Blood Count 4.6 X10*3/uL (4.8-10.8)
[2024-04-14 19:36] LABS: Erythrocyte Sedimentation Rate 4 MM/HR (0-15)
[2024-04-14 19:37] LABS: Anion Gap 13 (12-20); Blood Urea Nitrogen 16 mg/dL (9-16); Calcium 9.5 mg/dL (8.4-10.2); Carbon Dioxide 26 mmol/L (22-29); Chloride 109 mmol/L (96-108); Estimated Glomerular Filt Rate > 60; Glucose Random 222 mg/dL (60-115); Iron 89 mcg/dL (45-160); Percent Iron Saturation 32 % (15-50); Potassium 4.2 mmol/L (3.3-5.1); Sodium 144 mmol/L (135-145); Total Iron Binding Capacity 277 mcg/dL (228-428); Unsaturated Iron Binding 188 ug/dL
[2024-04-14 19:59] LABS: Folate 14.7 ng/mL (> or = 4.0); Vitamin B12 553 pg/mL (200-900)
[2024-04-15 18:14] LABS: Homocysteine 13.7 umol/L (<11.4)
[2024-04-16 18:03] LABS: CRP High Sensitivity 0.6 mg/L
[2024-04-19 04:34] LABS: Methylmalonic Acid 352 nmol/L (87-318)
== END 2024-04-14 12:43 | disposition home or self-care (01) ==
LOC: HO.HKASLDS 12:42
PROVIDERS: Visit Provider Nurse Practitioner Family
DX: E53.8 Deficiency of other specified B group vitamins (principal); E11.9 Type 2 diabetes mellitus without complications; I10 Essential (primary) hypertension; R26.9 Unspecified abnormalities of gait and mobility; G62.9 Polyneuropathy, unspecified; M48.02 Spinal stenosis, cervical region
CPT/HCPCS: 36415; 80048; 82607; 82746; 83090; 83540; 83921; 85025; 85652; 86141; 99212

== ENCOUNTER 2024-04-21 12:21 | Outpatient (AMB) | payer MEDICARE, BC, SELFPAY ==
--- NOTE | 2024-04-21 12:23 | MHC.OFFVIS ---
Vital Signs 04/21/24 12:24 Height 5 ft 11 in Weight 175 lb BMI 24.4 Intake Visit Reasons: PO LT CTR 04/06/24 AR Intake Note: Maxim 78 yr old male presents today for her PO Left hand CTR 04/06/24 AR. States his symptoms have improved and is doing well. Sutures removed and steri strips applied. Allergies cats Allergy (Intermediate, Uncoded 04/21/24 12:23) Headache HPI HPI PO LT CTR 04/06/24 AR: Details: Maxim is a 78 year old right hand dominant man who presents S/P left carpal tunnel release, DOS: 04/06/24. He says he is doing well and his sensation has been improving & now normal. He is happy with the results of his surgery. He says he has issues with his hand weakness, and is supposed to begin PT for this. He is also speaking with a Neurologist concerning his balance difficulties. He reports a hx of neuropathy affecting his feet, and he says he met with a Neurologist in [place] to discuss his NCS results and his muscle wasting. He says he was told that this was due to Diabetic neuropathy. He says his feet are completely numb and this has caused issues with his balance and ability to walk. He says he has a hx of spine surgery due to arthritis. He has RA and is on Humira. He is on Xarelto and is a Diabetic, which he says is well controlled. [facility] Medical History PMR (polymyalgia rheumatica) Low back pain, unspecified Psoriasis Degeneration of intervertebral disc of lumbar region Osteoarthritis Atrial fibrillation Hyperlipidemia Essential hypertension Obstructive sleep apnea Diabetes Hypothyroidism Surgical History H/O knee surgery H/O heart surgery Hx of excision of lamina of lumbar vertebra for decompression of spinal cord Hx of hernia repair Family History Mother Coronary arteriosclerosis Myocardial infarction Father Alcoholism Diabetes Social History Household Members: Spouse Household Members Other:: Alcohol intake: current Alcohol intake frequency: holidays/special occasions only Patient Tobacco Use Status: Former Tobacco user Current occupational status: retired 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 Sutures removed and Steri-Strips applied He can make a fist and extend all his digits Sensation is improving and now normal in the left hand median nerve distribution Sensation is improving but not yet normal in the right hand median nerve distribution Regarding the ulnar nerve bilaterally we see severe intrinsic wasting but intact sensation in the ulnar nerve distribution including the ulnar aspect of the hand. Weakness of finger abduction, as well as positive Froment sign. Cap refill is brisk Nerve Conduction Study: Moderately severe diffuse sensory motor peripheral neuropathy in the upper extremities with superimposed ulnar neuropathy & carpal tunnel syndrome bilaterally. EMG of the C5-T1 innervated muscles bilaterally consistent with chronic denervation in the intrinsic hand muscles. Dr. Padron 12/26/22 Psych Appearance: grossly normal Affect: normal affect Attitude: cooperative Assessment & Plan Assessment & Plan (1) Carpal tunnel syndrome of right wrist: Code(s): G56.01 - Carpal tunnel syndrome, right upper limb Category: Medical (2) Carpal tunnel syndrome of left wrist: Code(s): G56.02 - Carpal tunnel syndrome, left upper limb Category: Medical (3) Adalimumab (Humira) long-term use: Code(s): Z79.620 - group home (current) use of immunosuppressive biologic Category: Medical (4) Seronegative rheumatoid arthritis: Comment: Seronegative diagnosed 12/17 has hx of PSO HCQ started 12/17 ineffective & caused PSO flare DC 07/17 MTX started 07/17 ineffective DC 09/2023 Humira 09/2023 effective Code(s): M06.00 - Rheumatoid arthritis without rheumatoid factor, unspecified site Category: Medical Plan Assessment & plan: 1. Left Carpal tunnel syndrome, moderate-severe Pre-operative symptoms intermittent, but daily, worse at night Now with normal sensation The patient appears to be doing well post-operatively I educated him about the post-operative course I explained the signs and symptoms of infection, if the patient develops any new or worsening erythema, drainage, pain, or warmth they should contact the clinic or attend the ED. I discussed activity modifications, he is to lift nothing heavier than a cellphone for the next two weeks He will perform gentle ROM exercises at home He should avoid any underwater activities for the next 5 days He should gently massage about the incision site to reduce the risk of hypersensitivity 2. Right Carpal tunnel syndrome, S/P release DOS: 03/05/24 Pre-operative symptoms intermittent, but daily, worse at night Now with improved but not yet normal sensation 3. Bilateral hand intrinsic wasting, severe Normal sensation in the ulnar nerve distribution He has a hx of neuropathy affecting his feet as well, along with gait abnormalities, but no sensory loss in the ulnar nerve distribution He had an appointment with ALVINA Cross, who works with Dr. Auguste who is a Neurologist at [place] on 01/10/24. The patient says that he had a C-spine MRI, and is supposed to see Dr. Barboza with neurosurgery in the next few days Scribed for Tessa Ceballos MD by Ori May, medical administrative, on 04/21/24 at 12:40 PM, EST. Coding Level of Care Code Global (00784) Diagnoses Carpal tunnel syndrome of right wrist G56.01 Carpal tunnel syndrome of left wrist G56.02 Adalimumab (Humira) long-term use Z79.620 Seronegative rheumatoid arthritis M06.00
[2024-04-21 12:24] VITALS: BMI 24.4
== END 2024-04-21 15:06 | disposition home or self-care (01) ==
PROVIDERS: PCP Family Medicine; Visit Provider Orthopaedic Surgery
DX: G56.03 Carpal tunnel syndrome, bilateral upper limbs (principal); Z79.620 Long term (current) use of immunosuppressive biologic; M06.00 Rheumatoid arthritis without rheumatoid factor, unspecified site
CPT/HCPCS: 99024

== ENCOUNTER → 2024-04-21 12:21 | Outpatient (BNVA) | payer MEDICARE, BC, SELFPAY | PROVIDERS: PCP Family Medicine; Visit Provider Orthopaedic Surgery | DX: G56.03 Carpal tunnel syndrome, bilateral upper limbs (principal); M06.00 Rheumatoid arthritis without rheumatoid factor, unspecified site; Z79.620 Long term (current) use of immunosuppressive biologic | CPT/HCPCS: 99212 ==

== ENCOUNTER 2024-04-22 10:53 | Outpatient (AMB) | payer MEDICARE, BC, SELFPAY ==
--- NOTE | 2024-04-22 10:58 | A.SPINEOV_ITS ---
Intake Visit Reasons: F/u Cervical Stenosis Intake Note: Mr. Amaral is here today for a F/u on Cervical Stenosis Dispatcher Relay Required: No Allergies cats Allergy (Intermediate, Uncoded 04/21/24 12:23) Headache Assessment & Plan Assessment & Plan (1) Cervical myelopathy: Code(s): G95.9 - Disease of spinal cord, unspecified Category: Medical Plan Dear colleague, On 04/22/2024, I saw for follow-up Floyd Amaral for neurological reassessment. He has severe radiological cervical spinal stenosis from C3-C7. He comes to return for another neurological exam after his carpal tunnel syndrome was treated. He states that the numbness in his hand disappeared. On further questioning, he admits to mild dexterity loss, progressive balance problems and proximal leg weakness which are all classical symptoms of cervical myelopathy. On exam there is muscle wasting of the hands. He ambulates with a spastic gait and there is a Babinski sign on the left side. In summary, Mr. Amaral is clearly symptomatic from his cervical spinal stenosis with spinal cord compression and a needs to have a cervical decompression performed to stabilize his neurological symptoms. I reviewed his MRI and x-rays in detail and I offered him a cervical laminectomy C3 to C6 and partial C7. I described the procedure and expected outcome. He takes blood thinners for his AFib and he would need preoperative cardiology clearance. His diabetes is well controlled. He is going to think about what I told him and he will get back to my office if he wants me to do the surgery. He would like to have it done at the end of June or the beginning of July. I spent 35 minutes in his consult to evaluate the patient and discuss plan of care after reviewing imaging. Abimael Barboza MD, PhD Spine Fellowship Trained Neurosurgeon Director, [facility] Coding Level of Care Code Est Pt Level 4 (82686) Diagnoses Cervical myelopathy G95.9
== END 2024-04-22 11:39 | disposition home or self-care (01) ==
PROVIDERS: PCP Family Medicine; Visit Provider Neurological Surgery
DX: G95.9 Disease of spinal cord, unspecified (principal)
CPT/HCPCS: 99214

== ENCOUNTER → 2024-04-22 10:53 | Outpatient (BNVA) | payer MEDICARE, BC, SELFPAY | PROVIDERS: PCP Family Medicine; Visit Provider Neurological Surgery | DX: G95.9 Disease of spinal cord, unspecified (principal) | CPT/HCPCS: 99212 ==

== ENCOUNTER 2024-06-01 09:48 | Outpatient (REF) | payer MEDICARE, BC, SELFPAY ==
[2024-06-01 11:21] LABS: MANUAL DIFF FLAG NO
[2024-06-01 11:29] LABS: Basophils Absolute Auto 0.1 X10*3/uL (0.0-0.2); Basophils Percent Auto 1.2 % (0-2); Eosinophils Absolute Auto 0.3 X10*3/uL (0.0-0.4); Eosinophils Percent Auto 5.6 % (0-4); Hematocrit 40.1 % (42.0-52.0); Imm Gran Abs Auto 0.01 X10*3/uL (0.00-0.03); Imm Gran Pct Auto 0.2 % (0.0-0.4); Lymphocytes Percent Auto 21.3 % (20-40); Mean Corpuscular HGB Conc 32.4 g/dl (31.0-36.0); Mean Corpuscular Hemoglobin 30.6 pg (27.0-33.0); Mean Corpuscular Volume 94.4 fL (80.0-98.0); Mean Platelet Volume 10.1 fL (9.4-12.4); Monocytes Absolute Auto 0.5 X10*3/uL (0.1-1.2); Monocytes Percent Auto 10.3 % (2-11); Neutrophils Percent Auto 61.4 % (45-73); Platelet Count 192 X10*3/uL (160-400); Red Blood Count 4.25 X10*6/uL (4.60-5.80); Red Cell Distribution Width 13.5 % (11.0-16.0); White Blood Count 4.8 X10*3/uL (4.8-10.8)
[2024-06-01 11:41] LABS: Alanine Aminotransferase 36 U/L (0-40); Albumin Level 3.8 g/dL (3.5-5.0); Alkaline Phosphatase 65 U/L (39-117); Anion Gap 12 (12-20); Aspartate Amino Transferase 31 U/L (5-37); Bilirubin Total 0.6 mg/dL (0.0-1.0); Blood Urea Nitrogen 16 mg/dL (9-16); C Reactive Protein < 0.10 mg/dL (< or = 0.50); Calcium 9.5 mg/dL (8.4-10.2); Carbon Dioxide 25 mmol/L (22-29); Chloride 107 mmol/L (96-108); Estimated Glomerular Filt Rate > 60; Glucose Random 219 mg/dL (60-115); Potassium 4.1 mmol/L (3.3-5.1); Sodium 140 mmol/L (135-145); Total Protein 6.1 g/dL (6.5-8.0)
[2024-06-01 12:12] LABS: Erythrocyte Sedimentation Rate 4 MM/HR (0-15)
== END 2024-06-01 09:49 | disposition home or self-care (01) ==
LOC: HO.10HDL 09:48
PROVIDERS: Visit Provider Student in an Organized Health Care Education/Training Program
DX: M06.00 Rheumatoid arthritis without rheumatoid factor, unspecified site (principal)
CPT/HCPCS: 36415; 80053; 85025; 85652; 86140

== ENCOUNTER 2024-06-04 10:11 | Outpatient (AMB) | payer MEDICARE, BC, SELFPAY ==
--- NOTE | 2024-06-04 10:20 | MHC.OFFVIS ---
Vital Signs 06/04/24 10:25 Height 5 ft 11 in Weight 169 lb 8.568 oz BMI 23.6 BP 122/60 Blood Pressure Location Lt brachial Position Sitting Pulse 63 Pulse Source Pulse Oximeter Pulse Oximetry (%) 99 Oxygen Delivery Method Room Air Intake Visit Reasons: RA/CM Intake Note: Patient presents for RA. Allergies cats Allergy (Intermediate, Uncoded 04/21/24 12:23) Headache Medication List - Last Reconciled 06/04/24 by Ena Castillo MD acetaminophen (Tylenol Extra Strength) 500 mg PO Q6H PRN adalimumab (Humira Pen) inject one - 40 mg/0.8 mL pen every 2 weeks subcut albuterol sulfate 90 mcg/actuation (ProAir HFA) 2 puffs inhalation Q6H PRN atorvastatin 80 mg PO DAILY azelaic acid 15% 1 appl topical BID azelastine intranasal coenzyme Q10 (Ultra CoQ10) 150 mg PO DAILY cyanocobalamin (vitamin B-12) 500 mcg PO DAILY 30 days doxycycline hyclate 20 mg PO DAILY fluticasone propionate 50 mcg/actuation (Allergy Relief (fluticasone)) 2 sprays intranasal BID folic acid 1 mg PO DAILY gabapentin 300 mg PO BID glimepiride 6 mg PO QAM ketoconazole 2% 1 appl topical DAILY levothyroxine 125 mcg PO DAILY lisinopril 10 mg PO DAILY metformin ER 500 mg PO BID metoprolol succinate ER 50 mg PO DAILY multivitamin 1 tab PO DAILY oxycodone-acetaminophen 5-325 mg 1 tab PO Q6H PRN rivaroxaban (Xarelto) 20 mg PO DAILY terazosin 5 mg PO BEDTIME [wrist splint Wear nightly and as much as possible throughout the day] HPI Comments Details: 78-year-old male with seronegative RA returns for follow-up. On Humira regularly. He is doing reasonably well overall. He continues to feel that in the morning when he wakes up he feels that his PIP is are swollen, he takes a Tylenol and it improves within 1-2 hours. He had bilateral carpal tunnel release with improvement of the numbness of his hands. He was evaluated by neurologist and had a cervical spine MRI which showed severe cervical spinal canal stenosis with myelopathy. He is referred to see a spine surgeon scheduled for a procedure on 06/24. He did the Humira injection yesterday in the left thigh and noticed a rash in the injection site. 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 Condition started the end of July patient noticing generalized stiffness of his neck, shoulders, hands, thighs. Stiffness improves in about 8 hours. Was evaluated by his PCP and was found to have significantly elevated inflammatory markers. He was started on prednisone 15 mg daily with dramatic improvement of his symptoms however his blood sugars were significantly elevated his prednisone was tapered to 7.5 mg daily. Patient felt that the higher dose of prednisone was more helpful. Was also found to have positive Lyme serology and received a 28 day course of doxycycline. He denied any tick bites and denied any activities that would put him at risk of a tick bite. Denies any skin rashes. He also denies any joint pain, jaw claudication, tongue pain. Denies any claudication of his hands or feet. Denies headaches, fevers, weight loss or blurry vision. [facility] Medical History PMR (polymyalgia rheumatica) Low back pain, unspecified Psoriasis Degeneration of intervertebral disc of lumbar region Osteoarthritis Atrial fibrillation Hyperlipidemia Essential hypertension Obstructive sleep apnea Diabetes Hypothyroidism Surgical History H/O knee surgery H/O heart surgery Hx of excision of lamina of lumbar vertebra for decompression of spinal cord Hx of hernia repair Family History Mother Coronary arteriosclerosis Myocardial infarction Father Alcoholism Diabetes Social History Household Members: Spouse Household Members Other:: Alcohol intake: current Alcohol intake frequency: holidays/special occasions only Patient Tobacco Use Status: Former Tobacco user Current occupational status: retired 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 Review of Systems [facility] [place] Reports arthralgias, Reports joint swelling and Reports stiffness Physical Exam Vital Signs: Last Vital Signs Pulse 63 06/04/24 10:25 BP 122/60 06/04/24 10:25 Pulse Ox 99 06/04/24 10:25 Oxygen Delivery Method Room Air 07/11/24 10:25 BMI result Body Mass Index 23.6 Const General: cooperative and comfortable Nutritional Appearance: average body habitus Orientation/consciousness: patient oriented x3 Limitations: no limitations HEENT Head: Yes normocephalic and Yes atraumatic Resp Effort & Inspection: normal respiratory effort and able to speak in complete sentences Neuro General: patient oriented x3 Extrem Other: Nontender wrists today and no pain with flexion and extension Nontender PIPs today Bilateral thenar atrophy, worse on the right Normal range of motion of both elbows No ankle swelling or tenderness bilaterally Negative MTP squeeze test Assessment & Plan Assessment & Plan (1) Seronegative rheumatoid arthritis: Comment: Seronegative diagnosed 12/17 has hx of PSO HCQ started 12/17 ineffective & caused PSO flare DC 07/17 MTX started 07/17 ineffective DC 09/2023 Humira 09/2023 effective Code(s): M06.00 - Rheumatoid arthritis without rheumatoid factor, unspecified site Category: Medical Plan: This is a 78-year-old male with seronegative RA returns for follow-up. On Humira 40 mg every other week. In remission. His symptoms are likely due to degenerative arthritis of the hands Continue with Humira 40 mg every other week. Advised patient to ice the injection area 5 minutes before and after injections Labs before next visit in 4 months (2) Bilateral carpal tunnel syndrome: Code(s): G56.03 - Carpal tunnel syndrome, bilateral upper limbs Category: Medical Plan: S/p bilateral carpal tunnel release with improvement of tingling and numbness of his fingers (3) Adalimumab (Humira) long-term use: Code(s): Z79.620 - terminal superintendent (current) use of immunosuppressive biologic Category: Medical Plan: Advised patient to hold Humira with any sign of infection and let us know. Mild lymphopenia Will continue to monitor (4) Cervical myelopathy: Code(s): G95.9 - Disease of spinal cord, unspecified Category: Medical Plan: Scheduled for a procedure on 06/24. Advised patient to holding the Humira until the procedure. Humira can be restarted 1-2 weeks on the postop checkup if wound is healing reasonably well with no signs of infection Plan I spent 26 minutes reviewing patient's chart, evaluating patient, ordering diagnostic workup, counseling patient and documenting in the chart Orders: Orders C Reactive Protein 4 Months M06.00 - Rheumatoid arthritis without rheumatoid factor, unspecified site Erythrocyte Sedimentation Rate 4 Months M06.00 - Rheumatoid arthritis without rheumatoid factor, unspecified site Complete Blood Count Auto Diff 4 Months M06.00 - Rheumatoid arthritis without rheumatoid factor, unspecified site Comprehensive Met. Panel 4 Months M06.00 - Rheumatoid arthritis without rheumatoid factor, unspecified site Coding Level of Care Code Est Pt Level 4 (63805) Diagnoses Seronegative rheumatoid arthritis M06.00 Bilateral carpal tunnel syndrome G56.03 Adalimumab (Humira) long-term use Z79.620 Cervical myelopathy G95.9
[2024-06-04 10:25] VITALS: BP 122/60; PULSE 63; O2SAT 99; BMI 23.6
== END 2024-06-04 10:48 | disposition home or self-care (01) ==
PROVIDERS: PCP Family Medicine; Visit Provider Student in an Organized Health Care Education/Training Program
DX: M06.00 Rheumatoid arthritis without rheumatoid factor, unspecified site (principal); G56.03 Carpal tunnel syndrome, bilateral upper limbs; Z79.620 Long term (current) use of immunosuppressive biologic; G95.9 Disease of spinal cord, unspecified
CPT/HCPCS: 99214

== ENCOUNTER → 2024-06-04 10:11 | Outpatient (BNVA) | payer MEDICARE, BC, SELFPAY | PROVIDERS: PCP Family Medicine; Visit Provider Student in an Organized Health Care Education/Training Program | DX: M06.00 Rheumatoid arthritis without rheumatoid factor, unspecified site (principal); G56.03 Carpal tunnel syndrome, bilateral upper limbs; G95.9 Disease of spinal cord, unspecified; Z79.620 Long term (current) use of immunosuppressive biologic | CPT/HCPCS: 99212 ==

== ENCOUNTER 2024-10-01 11:37 | Outpatient (REF) | payer MEDICARE, BC, SELFPAY ==
[2024-10-01 13:08] LABS: MANUAL DIFF FLAG NO
[2024-10-01 13:39] LABS: Basophils Absolute Auto 0.1 X10*3/uL (0.0-0.2); Basophils Percent Auto 1.5 % (0-2); Eosinophils Absolute Auto 0.2 X10*3/uL (0.0-0.4); Eosinophils Percent Auto 5.4 % (0-4); Hematocrit 38.2 % (42.0-52.0); Hemoglobin 12.4 g/dl (14.0-18.0); Imm Gran Abs Auto 0.02 X10*3/uL (0.00-0.03); Imm Gran Pct Auto 0.5 % (0.0-0.4); Lymphocytes Percent Auto 25.6 % (20-40); Mean Corpuscular HGB Conc 32.5 g/dl (31.0-36.0); Mean Corpuscular Hemoglobin 30.9 pg (27.0-33.0); Mean Corpuscular Volume 95.3 fL (80.0-98.0); Mean Platelet Volume 10.2 fL (9.4-12.4); Monocytes Absolute Auto 0.5 X10*3/uL (0.1-1.2); Monocytes Percent Auto 11.5 % (2-11); Neutrophils Absolute Auto 2.3 x10*3/uL (2.0-8.3); Neutrophils Percent Auto 55.5 % (45-73); Platelet Count 196 X10*3/uL (160-400); Red Blood Count 4.01 X10*6/uL (4.60-5.80); Red Cell Distribution Width 13.2 % (11.0-16.0); White Blood Count 4.1 X10*3/uL (4.8-10.8)
[2024-10-01 13:54] LABS: Alanine Aminotransferase 41 U/L (0-40); Albumin Level 3.7 g/dL (3.5-5.0); Alkaline Phosphatase 77 U/L (39-117); Anion Gap 10 (12-20); Aspartate Amino Transferase 32 U/L (5-37); Bilirubin Total 0.7 mg/dL (0.0-1.0); Blood Urea Nitrogen 16 mg/dL (9-16); C Reactive Protein < 0.10 mg/dL (< or = 0.50); Calcium 9.2 mg/dL (8.4-10.2); Carbon Dioxide 28 mmol/L (22-29); Chloride 106 mmol/L (96-108); Estimated Glomerular Filt Rate > 60; Glucose Random 252 mg/dL (60-115); Potassium 4.3 mmol/L (3.3-5.1); Sodium 140 mmol/L (135-145); Total Protein 6.3 g/dL (6.5-8.0)
[2024-10-01 14:15] LABS: Erythrocyte Sedimentation Rate 5 MM/HR (0-15)
== END 2024-10-01 11:38 | disposition home or self-care (01) ==
LOC: HO.10HDL 11:37
PROVIDERS: Visit Provider Student in an Organized Health Care Education/Training Program
DX: M06.00 Rheumatoid arthritis without rheumatoid factor, unspecified site (principal)
CPT/HCPCS: 36415; 80053; 85025; 85652; 86140

== ENCOUNTER 2024-10-06 10:00 | Outpatient (AMB) | payer MEDICARE, BC, SELFPAY ==
--- NOTE | 2024-10-06 10:03 | MHC.OFFVIS ---
Vital Signs 10/06/24 10:07 Height 5 ft 11 in Weight 172 lb 9.951 oz BMI 24.1 BP 120/62 Blood Pressure Location Lt brachial Position Sitting Respiration 16 Pulse 61 Pulse Source Pulse Oximeter Pulse Oximetry (%) 98 Oxygen Delivery Method Room Air Intake Visit Reasons: RA/CM Intake Note: Patient presents for RA. Allergies cats Allergy (Intermediate, Uncoded 04/21/24 12:23) Headache Medication List - Last Reconciled 10/06/24 by Ena Castillo MD acetaminophen (Tylenol Extra Strength) 500 mg PO Q6H PRN adalimumab (Humira(CF) Pen) inject one - 40 mg/0.8 mL pen every 2 weeks subcut albuterol sulfate 90 mcg/actuation (ProAir HFA) 2 puffs inhalation Q6H PRN atorvastatin 80 mg PO DAILY azelaic acid 15% 1 appl topical BID azelastine intranasal coenzyme Q10 (Ultra CoQ10) 150 mg PO DAILY cyanocobalamin (vitamin B-12) 500 mcg PO DAILY 30 days doxycycline hyclate 20 mg PO DAILY fluticasone propionate 50 mcg/actuation (Allergy Relief (fluticasone)) 2 sprays intranasal BID folic acid 1 mg PO DAILY gabapentin 300 mg PO BID glimepiride 6 mg PO QAM ketoconazole 2% 1 appl topical DAILY levothyroxine 125 mcg PO DAILY lisinopril 10 mg PO DAILY metformin ER 500 mg PO BID metoprolol succinate ER 50 mg PO DAILY multivitamin 1 tab PO DAILY oxycodone-acetaminophen 5-325 mg 1 tab PO Q6H PRN rivaroxaban (Xarelto) 20 mg PO DAILY terazosin 5 mg PO BEDTIME [wrist splint Wear nightly and as much as possible throughout the day] HPI Comments Details: 79-year-old male with seronegative RA returns for follow-up. On Humira regularly. He is doing reasonably well overall. He is s/p ACDF. He states that 4 vertebrae were fused. He is doing physical therapy. He states that after PT is done he will do occupational therapy for his hands. He states that continues to have some stiffness of his hands. Stiffness is worse in the morning. But he has normal range of motion of his fingers. His main concern is his Humira coverage. He states that his stocks made too much profit this year and he may not qualify for knee patient assistance program. He states that there will be a decision by this November 02. 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 Condition started the end of July patient noticing generalized stiffness of his neck, shoulders, hands, thighs. Stiffness improves in about 8 hours. Was evaluated by his PCP and was found to have significantly elevated inflammatory markers. He was started on prednisone 15 mg daily with dramatic improvement of his symptoms however his blood sugars were significantly elevated his prednisone was tapered to 7.5 mg daily. Patient felt that the higher dose of prednisone was more helpful. Was also found to have positive Lyme serology and received a 28 day course of doxycycline. He denied any tick bites and denied any activities that would put him at risk of a tick bite. Denies any skin rashes. He also denies any joint pain, jaw claudication, tongue pain. Denies any claudication of his hands or feet. Denies headaches, fevers, weight loss or blurry vision. [facility] Medical History PMR (polymyalgia rheumatica) Low back pain, unspecified Psoriasis Degeneration of intervertebral disc of lumbar region Osteoarthritis Atrial fibrillation Hyperlipidemia Essential hypertension Obstructive sleep apnea Diabetes Hypothyroidism Surgical History H/O knee surgery H/O heart surgery Hx of excision of lamina of lumbar vertebra for decompression of spinal cord Hx of hernia repair Family History Mother Coronary arteriosclerosis Myocardial infarction Father Alcoholism Diabetes Social History Household Members: Spouse Household Members Other:: Alcohol intake: current Alcohol intake frequency: holidays/special occasions only Patient Tobacco Use Status: Former Tobacco user Current occupational status: retired 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 Systems [facility] [place] Reports arthralgias, Denies joint swelling and Reports stiffness Physical Exam Vital Signs: Last Vital Signs Pulse 61 10/06/24 10:07 Resp 16 10/06/24 10:07 BP 120/62 10/06/24 10:07 Pulse Ox 98 10/06/24 10:07 Oxygen Delivery Method Room Air 10/06/24 10:07 BMI result Body Mass Index 24.1 Const General: cooperative and comfortable Nutritional Appearance: average body habitus Orientation/consciousness: patient oriented x3 Limitations: no limitations HEENT Head: Yes normocephalic and Yes atraumatic Resp Effort & Inspection: normal respiratory effort and able to speak in complete sentences Neuro General: patient oriented x3 Extrem Other: Nontender wrists today and no pain with flexion and extension Nontender PIPs today Bilateral thenar atrophy, worse on the right 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 On Humira 40 mg every other week. In remission. His symptoms are likely due to degenerative arthritis of the hands Patient states that he may not qualify for the Humira injection this year. He still about 6 more injections. Advised patient to space out the Humira to 40 mg every 3 weeks for now. Discussed with patient that are alternatives, we can switch him to IV Simponi Aria. Other possibilities is low-dose leflunomide (due to fluctuating transaminitis) Labs before next visit in 3 months (2) Bilateral carpal tunnel syndrome: Code(s): G56.03 - Carpal tunnel syndrome, bilateral upper limbs Category: Medical Plan: S/p bilateral carpal tunnel release with improvement of tingling and numbness of his fingers. Discussed with patient that in order for his thenar wasting to improve he has to start OT. He will start OT in October (3) Adalimumab (Humira) long-term use: Code(s): Z79.620 - intermediate (current) use of immunosuppressive biologic Category: Medical Plan: Advised patient to hold Humira with any sign of infection and let us know. Mild lymphopenia Will continue to monitor Plan I spent 26 minutes reviewing patient's chart, evaluating patient, ordering diagnostic workup, counseling patient and documenting in the chart Orders: Orders Erythrocyte Sedimentation Rate 3 Months M06.00 - Rheumatoid arthritis without rheumatoid factor, unspecified site Hepatitis A,B,C Profile 3 Months Z11.59 - Encounter for screening for other viral diseases T Spot TB 3 Months Z11.7 - Encounter for testing for latent tuberculosis infection Complete Blood Count Auto Diff 3 Months M06.00 - Rheumatoid arthritis without rheumatoid factor, unspecified site Comprehensive Met. Panel 3 Months M06.00 - Rheumatoid arthritis without rheumatoid factor, unspecified site C Reactive Protein 3 Months M06.00 - Rheumatoid arthritis without rheumatoid factor, unspecified site Coding Level of Care Code Est Pt Level 4 (82167) Complex EM visit Add On G2211 Diagnoses Seronegative rheumatoid arthritis M06.00 Bilateral carpal tunnel syndrome G56.03 Adalimumab (Humira) long-term use Z79.620
[2024-10-06 10:07] VITALS: BP 120/62; PULSE 61; RESP 16; O2SAT 98; BMI 24.1
== END 2024-10-06 10:31 | disposition home or self-care (01) ==
PROVIDERS: PCP Family Medicine; Visit Provider Student in an Organized Health Care Education/Training Program
DX: M06.00 Rheumatoid arthritis without rheumatoid factor, unspecified site (principal); G56.03 Carpal tunnel syndrome, bilateral upper limbs; Z79.620 Long term (current) use of immunosuppressive biologic
CPT/HCPCS: 99214; G2211

== ENCOUNTER → 2024-10-06 10:00 | Outpatient (BNVA) | payer MEDICARE, BC, SELFPAY | PROVIDERS: PCP Family Medicine; Visit Provider Student in an Organized Health Care Education/Training Program | DX: M06.00 Rheumatoid arthritis without rheumatoid factor, unspecified site (principal); G56.03 Carpal tunnel syndrome, bilateral upper limbs; Z79.620 Long term (current) use of immunosuppressive biologic | CPT/HCPCS: 99212 ==

== ENCOUNTER 2024-11-03 11:00 | Outpatient (AMB) | payer MEDICARE, BC, SELFPAY ==
[2024-11-03 11:20] VITALS: BP 180/84; PULSE 67; O2SAT 97; BMI 24.5
--- NOTE | 2024-11-03 11:20 | MHC.OFFVIS ---
Vital Signs 11/03/24 11:20 Height 5 ft 11 in Weight 176 lb BMI 24.5 BP 180/84 H Blood Pressure Location Rt brachial Position Sitting Pulse 67 Pulse Source Pulse Oximeter Pulse Oximetry (%) 97 Oxygen Delivery Method Room Air Intake Visit Reasons: Follow up Threat Monitoring Analyst Required: No Accompanied by: Spouse Allergies cats Allergy (Intermediate, Uncoded 04/21/24 12:23) Headache HPI Comments Details: Right-handed 78-yr-old male presents for f/u visit of hand weakness, tremor, gait disorder. Pt is accompanied by his . Patient reports that he is doing overall better since his last visit here, however he still has hand weakness. He wonders how this can be monitored. He underwent C3-7 ACDF by Michael 07/17/24 He started OT for hand therapy approx 1 month ago. He is also doing PT for his balance. He is also writing a [employer] x's 6 miles, walking up to [id number] steps per day- tracks with a watch. He is not noticing much change in his hand strength- maybe can open a soda bottle a bit easier. His hands are still stiff in the morning- he attributes this to his RA. Hand tremor is less. His neck is better- better ROM- now very little pain. Shoulders feel better. He is not noticing any hand numbness, tingling. He can still be a little off balance, especially with turns. Previous work-up: 02/27/24, [facility] eMG/NCS: IMPRESSION: ?Abnormal study. 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 ?Findings are consistent with, but nonspecific for, diabetic polyneuropathy. There is EMG evidence of subacute denervation affecting distal greater than proximal muscles in right greater than left lower extremities, consistent with the underlying polyneuropathy. ?However, because of the severity of the underlying polyneuropathy, superimposed right greater than left L5-S1 radiculopathies or lower lumbar/upper sacral plexopathies cannot be excluded on the basis of this study. ?Clinical correlation with lumbar imaging studies is advised. No EMG evidence of myopathy affecting studied muscles in the lower extremities. , BUE EMG/NCS: IMPRESSION: ?Abnormal study. ?There is EMG evidence of [id number] subacute denervation affecting right greater than left upper extremity muscles innervated by C5-C8 nerve roots, including cervical paraspinal muscles, consistent with polyradiculopathy. There is nerve conduction study evidence of a moderate large-fiber length-dependent sensorimotor polyneuropathy affecting the upper extremities, including demyelination and axonal loss. ?Findings are consistent with, but nonspecific for, diabetic polyneuropathy. Because of the underlying polyneuropathy, superimposed bilateral median mononeuropathies at the wrists (carpal tunnel syndromes), particularly on the right side, cannot be excluded. No definite nerve conduction study evidence of bilateral ulnar neuropathies at the elbows (cubital tunnel syndromes). No EMG evidence of myopathy affecting studied muscles in the upper extremities. ?Upper motor neuron pathology, including myelopathy, is not evaluated by this study. ? 02/12/24, MR/MR head/brain and c-spine wo con IMPRESSION: Within the limitations of this study, -No acute intracranial abnormality. -Chronic microangiopathy. -Severe spinal canal stenosis at C3-C4 and C5-C6 with impingement of the cord. There is suggestion of abnormal cord signal at C5-C6, which may reflect compressive myelopathy. There is also moderate spinal canal stenoses at C4-C5 and C6-C7. -Severe bilateral neural foraminal narrowing spanning C3-C4 through C6-C7. 02/18/24, XR/XR cervical spine 4V IMPRESSION: Multilevel cervical spondylosis with advanced degenerative changes and loss of disc space height at C3-C4, C5-C6, and C6-C7. 01/22/24 01/22/24 08:00 08:20 WBC 4.5 L RBC 4.52 L Hgb 13.5 L Hct 42.0 MCV 92.9 MCH 29.9 Sodium 143 Potassium 3.9 Chloride 107 Carbon Dioxide 26 Anion Gap 14 BUN 18 H Creatinine 0.89 Hemoglobin A1c % 6.9 H Calcium 9.5 Iron 68 TIBC 275 % Saturation 25 Unsat Iron Binding 207 Total Bilirubin 0.9 AST 31 ALT 34 Alkaline Phosphatase 75 Vitamin B12 271 Methylmalonic Acid 1177 H Folate 15.8 Homocysteine 23.3 H TSH 0.80 Ur Creatinine 24 Hour 0.99 Ur Albumin 24 Hour 100 Ur Total Protein 24 Hr 166 H Protein/Creat Ratio 24h 167 H Ur Protein/Creat Ratio mg/mg 0.167 H U [id number]-1-[id number] 0 U Qfgjp-3-Adrfruxb 0 U Beta Globulin 0 U Gamma Globulin 0 PFSH Medical History (Updated 11/03/24 @ 17:29 by ALVINA Cross) PMR (polymyalgia rheumatica) Low back pain, unspecified Psoriasis Degeneration of intervertebral disc of lumbar region Osteoarthritis Atrial fibrillation Hyperlipidemia Essential hypertension Obstructive sleep apnea Diabetes Hypothyroidism Surgical History (Updated 11/03/24 @ 11:22 by CLEVELAND Cast) H/O cervical spine surgery (~06/2024) H/O knee surgery H/O heart surgery Hx of excision of lamina of lumbar vertebra for decompression of spinal cord Hx of hernia repair Family History Mother Coronary arteriosclerosis Myocardial infarction Father Alcoholism Diabetes Social History Household Members: Spouse Household Members Other:: Alcohol intake: current Alcohol intake frequency: holidays/special occasions only Patient Tobacco Use Status: Former Tobacco user Current occupational status: retired 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 Mild BUE palpable tremor Finger nose: Intact Tone: Mild LUE tone Hand- Bilateral Intrinsic hand muscle wasting. 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 Improved bilateral pinch grasp. Dyskinesia: None FFM: Very mild decrease in LUE BUE OBDULIA: decreased speed on left- mild. Foot taps: Decreased on left Gait: Let arm droop, decreased left arm swing, shorter steps, right higher step, unsteady during turns. Psych: Pleasant affect Assessment & Plan Assessment & Plan (1) Altered gait: Code(s): R26.9 - Unspecified abnormalities of gait and mobility Category: Medical (2) Sensory motor neuropathy: Comment: BUE moderately severe diffuse sensorimotor peripheral neuropathy. Code(s): G62.9 - Polyneuropathy, unspecified Category: Medical (3) Neuroforaminal stenosis of cervical spine: Code(s): M48.02 - Spinal stenosis, cervical region Category: Medical (4) Left hand weakness: Code(s): R29.898 - Other symptoms and signs involving the musculoskeletal system Category: Medical Plan Reviewed be [facility] neurosurgery office and surgical notes. 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 Patient advised that recovery can be very very slow following cervical ACDF procedure, and may not recover completely. Encouraged patient to continue hand OT and PT exercises, as well as his home exercise regimen. Continue to use walking stick. Advised to turn slowly, and try to keep upper and lower body in alignment during turns to minimize postural instability during turns. Continue vitamin B12 500 mcg daily. Will recheck labs. F/u w/ rheumatology as scheduled. Monitor gait, tremor, stiffness- if worsens consider DaTscan. Pt seen in c/w Dr Terra Parra. Orders: Orders Vitamin B12 and Folate Today D64.9 - Anemia, unspecified, E53.8 - Deficiency of other specified B group vitamins Methylmalonic Acid Today D64.9 - Anemia, unspecified, E53.8 - Deficiency of other specified B group vitamins Homocysteine Today D64.9 - Anemia, unspecified, E53.8 - Deficiency of other specified B group vitamins Ferritin Today D64.9 - Anemia, unspecified, E53.8 - Deficiency of other specified B group vitamins IRON PROFILE Today D64.9 - Anemia, unspecified, E53.8 - Deficiency of other specified B group vitamins Coding Level of Care Code Est Pt Level 4 (54811) Diagnoses Altered gait R26.9 Sensory motor neuropathy G62.9 Neuroforaminal stenosis of cervical spine M48.02 Left hand weakness R29.898
== END 2024-11-03 11:54 | disposition home or self-care (01) ==
PROVIDERS: PCP Family Medicine; Visit Provider Nurse Practitioner Family
DX: R26.9 Unspecified abnormalities of gait and mobility (principal); G62.9 Polyneuropathy, unspecified; M48.02 Spinal stenosis, cervical region; R29.898 Other symptoms and signs involving the musculoskeletal system
CPT/HCPCS: 99214

== ENCOUNTER → 2024-11-03 11:00 | Outpatient (BNVA) | payer MEDICARE, BC, SELFPAY | PROVIDERS: PCP Family Medicine; Visit Provider Nurse Practitioner Family | DX: M48.02 Spinal stenosis, cervical region (principal); R26.9 Unspecified abnormalities of gait and mobility; R29.898 Other symptoms and signs involving the musculoskeletal system; G62.9 Polyneuropathy, unspecified | CPT/HCPCS: 99212 ==

== ENCOUNTER 2024-11-05 07:56 | Outpatient (REF) | payer MEDICARE, BC, SELFPAY ==
[2024-11-05 08:56] LABS: Iron 77 mcg/dL (45-160); Percent Iron Saturation 31 % (15-50); Total Iron Binding Capacity 251 mcg/dL (228-428); Unsaturated Iron Binding 174 ug/dL
[2024-11-05 09:12] LABS: Ferritin 12 ng/mL (20-250)
[2024-11-05 09:25] LABS: Folate 17.1 ng/mL (> or = 4.0); Vitamin B12 685 pg/mL (200-900)
[2024-11-06 20:08] LABS: Homocysteine 13.5 umol/L (<11.4)
[2024-11-10 08:38] LABS: Methylmalonic Acid 274 nmol/L (69-390)
== END 2024-11-05 07:57 | disposition home or self-care (01) ==
LOC: HO.LAB 07:56
PROVIDERS: PCP Family Medicine; Visit Provider Nurse Practitioner Family
DX: E53.8 Deficiency of other specified B group vitamins (principal); D64.9 Anemia, unspecified
CPT/HCPCS: 36415; 82607; 82728; 82746; 83090; 83540; 83921

== ENCOUNTER 2025-01-08 08:08 | Outpatient (REF) | payer MEDICARE, BC, SELFPAY ==
--- OUTSIDE RECORDS SUMMARY | 2025-01-08 08:11 | XMS_ITS | Continuity of Care Document ---
Author Organization [facility], Physical Therapy, [facility] Address [address] [place] [address] Care Team Providers Care Director Of Intercollegiate Athletics Name Role Phone KATHY MAY Primary Care Provider DAVID MAHONEY Sports Medicine NAGI WHITMAN Physical Therapist VY SEGURA Regulation Supervisor JOHNNA HESS Official Court Interpreter GUSTAVO ZIMMER Senior Talent Acquisition Specialist BETH JULIAN Neurologist Assessment Encounter Date Assessment Date Assessment LastModified by Organization Details LastModified Time 01/05/2025 01/05/2025 12 PT sessions since initial evaluation on 08.18.24 Since our prior session patient reports improvement in symptom control and function. Clinically associated pain with ROM and resisted motions are improving. We will assess if adjustment to self care and home exercise as above help patient in progression toward their goals. Follow up: 4 weeks brenda Not available 01/05/2025 12:12:23 Plan of Treatment Reminders Order Date Submit Date Provider Last Modified By Organization Details Last Modified Time Details Appointments Follow Up, 2024 02:30P M Nagi Roy n, PT Not available Not available Not available Follow Up, 2024 10:00A M Nagi Roy n, PT Not available Not available Not available LAB Follow-Up 2024 08:35A [facility] Lab Not available Not available Not available Wellness Visit 2024 11:15A M Kathy May MD Not available Not available Not available Lab None recorded. Referral None recorded. Procedures None recorded. Surgeries None recorded. Imaging None recorded. Medication Orders None recorded. Patient TargetsNo targets recorded. Patient InstructionsNo instructions recorded. Reason for Referral None Reported. Problems Name Problem SNOMED Code Status Onset Date Resolution Date Notes Provider Name and Address Organization Details Recorded Time Atrial fibrillati on 75071914 Active 2014 Not Available [facility] 4 01:33:21 Diabetes mellitus 82963800 Active 2015 Not Available [facility] 4 01:33:22 Essential hypertensi on 60891193 Active 2015 Not Available [facility] 4 01:33:21 Hyperlipid emia 93620488 Active 2015 Not Available [facility] 4 01:33:21 Osteoarthr itis 057089327 Active 2015 neck, knee, hands Not Available [facility] 4 01:33:21 Hypothyroi dism 53578437 Active 2015 Not Available [facility] 4 01:33:21 Seasonal allergy 369032845 Active 2016 Not Available [facility] 4 01:33:21 Elbow joint pain 627099936 Completed 201610/01/2019 Kathy May MD [address] [place] [address], [phone] , [facility] 14:21:17 Benign prostatic hyperplasi a with outflow obstructio n 131489395 Active 2017 Not Available [facility] 4 01:33:21 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 782751829 Active 2018 Not Available [facility] 4 01:33:21 Degenerati on of lumbar interverte bral disc 35760712 Active 2019 Not Available [facility] 4 01:33:21 Obstructiv e sleep apnea syndrome 23441507 Active 2020 Not Available [facility] 4 01:33:22 Polymyalgi a rheumatica 26904565 Completed 202211/14/2023 Kathy May MD [address] [place] [address], [phone] , [facility] 10:50:43 Rheumatoid arthritis 21949622 Active 2022 Not Available [facility] 4 01:33:21 Spinal stenosis in cervical region 45864718 Active 2023 Kathy May MD [address] [place] [address], [phone] , [facility] 5 11:06:55 Diabetic peripheral neuropathy 768204245 Active 2024 Kathy May MD [address] [place] [address], [phone] , [facility] 11:04:54 Notes:Some problems listed i n Documents: #[id number], #[id number], #[id number], #[id number] could not be added to this patient's chart. Please review these documents and add these problems to the patient's chart manually as needed. Problem Notes None recorded. Procedures Surgical History Date Name Laterality Status Provider Name and Address Organization Details Recorded Time 01/05/20 57280: Neuromuscular Re-Education completed Nagi Whitman, PT [address] [place], [address], [facility] 01/05/2025 12:12:05 01/05/20 Treatment and Advice completed Nagi Whitman, PT [address] [place], [address], [facility] 01/05/2025 12:06:35 12/22/19 06389: Neuromuscular Re-Education completed Nagi Whitman, PT [address] [place], [address], [facility] 12/22/2024 13:34:51 12/22/19 Treatment and Advice completed Nagi Whitman, PT [address] [place], [address], [facility] 12/22/2024 13:18:54 12/08/19 14654: Therapeutic Exercise completed Nagi Whitman, PT [address] [place], [address], [facility] 12/08/2024 10:31:52 12/08/19 Treatment and Advice completed Nagi Whitman, PT [address] [place], [address], [facility] 12/08/2024 10:28:48 11/05/20 67279: Therapeutic Exercise completed Nagi Whitman, PT [address] [place], [address], [facility] 11/05/2024 14:35:21 11/05/20 Treatment and Advice completed Nagi Whitman, PT [address] [place], [address], [facility] 11/05/2024 14:34:16 10/15/20 02502: Therapeutic Exercise completed aNgi Whitman, PT [address] [place], [address], [facility] 10/15/2024 18:20:55 10/15/20 Treatment and Advice completed Nagi Whitman, PT [address] [place], [address], [facility] 10/15/2024 15:04:06 09/29/20 91805: Therapeutic Exercise completed Nagi Whitman, PT [address] [place], [address], [facility] 09/29/2024 10:37:55 09/29/20 Treatment and Advice completed Nagi Whitman, PT [address] [place], [address], [facility] 09/29/2024 10:02:22 09/15/20 36710: Therapeutic Exercise completed Nagi Whitman, PT [address] [place], [address], [facility] 09/15/2024 10:35:38 09/15/20 Treatment and Advice completed Nagi Whitman, PT [address] [place], [address], [facility] 09/15/2024 10:29:49 09/08/20 60005: Therapeutic Exercise completed Nagi Whitman, PT [address] [place], [address], [facility] 09/08/2024 11:02:59 09/08/20 Treatment and Advice completed Nagi Whitman, PT [address] [place], [address], [facility] 09/08/2024 10:57:27 09/03/20 01591: Therapeutic Exercise completed Nagi Whitman, PT [address] [place], [address], [facility] 09/03/2024 14:23:47 09/03/20 Treatment and Advice completed Nagi Whitman, PT [address] [place], [address], [facility] 09/03/2024 12:12:37 09/01/20 45349: Therapeutic Exercise completed Nagi Whitman, PT [address] [place], [address], [facility] 09/01/2024 10:29:53 09/01/20 Treatment and Advice completed Nagi Whitman, PT [address] [place], [address], [facility] 09/01/2024 10:00:08 08/27/20 16691: Therapeutic Exercise completed Nagi Whitman, PT [address] [place], [address], [facility] 08/27/2024 12:04:26 08/27/20 Treatment and Advice completed Nagi Whitman, PT [address] [place], [address], [facility] 08/27/2024 12:00:40 08/25/20 83248: Therapeutic Exercise completed Nagi Whitman, PT [address] [place], [address], [facility] 08/27/2024 10:53:41 08/25/20 Treatment and Advice completed Nagi Whitman, PT [address] [place], [address], [facility] 08/25/2024 11:11:05 08/18/20 Physical Activity Counselling completed Nagi Whitman, PT [address] [place], [address], [facility] 08/18/2024 10:10:16 08/18/20 87628: PT Eval Low Complexity completed Nagi Whitman, PT [address] [place], [address], [facility] 08/18/2024 10:10:16 08/18/20 Treatment and Advice completed Nagi Whitman, PT [address] [place], [address], [facility] 08/18/2024 10:42:21 07/25/20 17 Gina - Colonoscopy completed Johnna Fuentes MD [address] [place], [address], [facility] 07/25/2017 10:13:24 05/08/20 17 Knee (Right) Injection completed ALVINA Arambula [address] [place], [address], [facility] 05/08/2017 10:37:00 11/05/20 16 18375: Manual Therapy completed Murali Smith, PT, DPT, CSCS [address] [place] [address], [address], [facility] 11/05/2016 10:04:55 10/22/20 16 65539: Manual Therapy completed Murali Smith, PT, DPT, CSCS [address] [place] [address], [address], [facility] 10/22/2016 10:55:58 10/11/20 16 94080: Therapeutic Exercise completed Murali Smith, PT, DPT, CSCS [address] [place] [address], [address], [facility] 10/11/2016 09:31:04 10/11/20 16 71822: Manual Therapy completed Murali Smith PT, DPT, CSCS [address] [place], [address], [facility] 10/11/2016 09:31:09 10/01/20 16 51825: PT Evaluation completed Murali Smith, PT, DPT, CSCS [address] [place], [address], [facility] 10/01/2016 13:41:44 09/25/20 16 Medicare Wellness Visit completed Kathy May MD [address] [place], [address], [facility] 09/25/2016 13:54:23 Imaging Results None recorded. Procedure Notes None recorded. Medical Equipment None Reported. Allergies No known drug allergies Medications Name Sig Start Date Stop Date Status Note LastModified by Organization Details LastModified Time amlodipin e besylate 10 mg tabs 06/14 completed Not Available Not Available Not Available terazosin hcl 5 mg caps 06/14 completed Not Available Not Available Not Available metformin hydrochlo ride er 500 mg tb24 06/14 completed Not Available Not Available Not Available Prescript ion - Prior Authoriza tion Request 09/12 completed Not Available Not Available Not Available amoxicill in 500 mg capsule 12/30 completed Not Available Not Available Not Available terazosin 5 mg capsule TAKE 1 CAPSULE BY MOUTH DAILY AT BEDTIME active Not Available Not Available No t Available atorvasta tin 40 mg tablet TAKE 1 TABLET BY MOUTH EVERY DAY 10/01 completed Not Available Not Available Not Available metformin 500 mg tablet TAKE 1 TABLET BY MOUTH TWICE A DAY DIRECTED 04/15 completed Not Available Not Available Not Available levothyro xine 137 mcg tablet Take 1 tablet every day by oral route. 04/13 completed Not Available Not Available Not Available atorvasta tin 80 mg tablet TAKE 1 TABLET BY MOUTH DAILY active Not Available Not Available No t Available prednison e 10 mg tablet Take 1 tablet every day by oral route in the morning. 11/13 completed Not Available Not Available Not Available doxycycli ne hyclate 100 mg capsule TAKE 1 CAPSULE BY MOUTH TWICE A DAY FOR 28 DAYS 10/03 completed Not Available Not Available Not Available tizanidin e 2 mg tablet TAKE 1 TABLET BY MOUTH EVERY 8 HOURS FOR 10 DAYS 02/13 completed Not Available Not Available Not Available atorvasta tin 10 mg tablet TAKE 1 TABLET BY MOUTH EVERY DAY 04/02 completed Not Available Not Available Not Available Iron (ferrous sulfate) 325 mg (65 mg iron) tablet Take 1 tablet 3 times a week by oral route. active Not Available Not Available No t Available tizanidin e 4 mg tablet TAKE 1 TABLET BY MOUTH EVERY 8 HOURS 12/02 completed Not Available Not Available Not Available amiodaron e 200 mg tablet TAKE 1/2 TABLET BY MOUTH ONCE A DAY 10/07 completed Not Available Not Available Not Available metoprolo l succinate ER 50 mg tablet,ex tended release 24 hr TAKE 1 TO 2 TABLETS BY MOUTH DAILY DIRECTED BY PHYSICIA N 2023 active Not Available Not Available Not Avai lable lisinopri l 20 mg tablet TAKE 1 TABLET BY MOUTH EVERY DAY 12/02 completed Not Available Not Available Not Available prednison e 5 mg tablet TAKE 1 TABLET BY MOUTH EVERY DAY 08/30 completed takes 2mg now 06/18/23 jmm Not Available Not Available Not Available metformin 850 mg tablet takes one tablet twice a day by mouth 09/26 completed Not Available Not Available Not Available amlodipin e 2.5 mg tablet TAKE 1 TABLET BY MOUTH EVERY DAY 04/09 completed Not Available Not Available Not Available terazosin 1 mg capsule TAKE 1 TO 2 CAPSULES BY MOUTH ONCE A DAY 09/30 completed Not Available Not Available Not Available amlodipin e 5 mg tablet Take 1 tablet every day by oral route. 10/31 completed Not Available Not Available Not Available prochlorp erazine maleate 10 mg tablet 09/26 completed Not Available Not Available Not Available hydrocodo ne 10 mg-acetam inophen 325 mg tablet TAKE 1 TABLET BY MOUTH EVERY 4 HOURS NEEDED FOR PAIN 12/02 completed Not Available Not Available Not Available tramadol 50 mg tablet TAKE 1 TABLET BY MOUTH EVERY 8 HOURS NEEDED FOR KNEE PAIN, USE SPARINGL Y WITH FOOD active Not Available Not Available No t Available triamcino lone acetonide 0.1 % topical cream active Not Available Not Available Not Available diltiazem ER 120 mg capsule,e xtended release 12 hr TAKE ONE CAPSULE BY MOUTH EVERY DAY 09/25 completed Not Available Not Available Not Available oxycodone -acetamin ophen 5 mg-325 mg tablet TAKE 1 TABLET BY MOUTH EVERY 6 HOURS NEEDED FOR PAIN 04/29 completed Not Available Not Available Not Available lorazepam 0.5 mg tablet prn-TAKE 1 TO 2 TABLETS BY MOUTH 1 HOUR PRIOR TO INJECTIO N FOR PRE-PROC EDURAL ANXIETY 12/02 completed Not Available Not Available Not Available methotrex ate sodium 2.5 mg tablet TAKE 8 TABLETS (20MG) BY MOUTH ONCE A WEEK 12/02 completed Not Available Not Available Not Available aspirin 325 mg tablet,de layed release TAKE 1 TABLET BY MOUTH 2 (TWO) TIMES A DAY FOR 21 DAYS. 01/07 completed Stopped 01/07/19 Not Available Not Available Not Available prednison e 1 mg tablet starting September 22, take 4 mg for for one week, then 3 mg for one week, 2 mg for one week and 1 mg for one week then stop, by mouth 03/20 completed Not Available Not Available Not Available amlodipin e 10 mg tablet TAKE 1 TABLET BY MOUTH DAILY 06/13 completed Not Available Not Available Not Available prednison e 2.5 mg tablet 11/14 completed Not Available Not Available Not Available levothyro xine 125 mcg tablet TAKE 1 TABLET BY MOUTH DAILY active Not Available Not Available No t Available lisinopri l 10 mg tablet TAKE 1 TABLET BY MOUTH DAILY DIRECTED 04/29 completed Not Available Not Available Not Available glimepiri de 4 mg tablet TAKE 2 TABLETS BY MOUTH DAILY active Not Available Not Available No t Available levothyro xine 150 mcg tablet TAKE 1 TABLET BY MOUTH four days a week, with 125 mcg on the other 3 days 06/14 completed Not Available Not Available Not Available metronida zole 0.75 % topical cream PRN active Not Available Not Available Not Available lisinopri l 30 mg tablet Take 1 tablet every day by oral route. active Not Available Not Available No t Available gabapenti n 300 mg capsule TAKE 2 CAPSULES BY MOUTH 3 TIMES A DAY active Not Available Not Available No t Available Senna Laxative 8.6 mg tablet TAKE 2 TABLETS BY MOUTH TWICE A DAY NEEDED FOR CONSTIPA TION 10/01 completed Not Available Not Available Not Available diltiazem CD 120 mg capsule,e xtended release 24 hr TAKE ONE CAPSULE BY MOUTH EVERY DAY 09/25 completed Not Available Not Available Not Available folic acid 1 mg tablet TAKE 1 TABLET BY MOUTH EVERY DAY active Not Available Not Available No t Available mupirocin 2 % topical ointment 12/30 completed Not Available Not Available Not Available metoprolo l succinate ER 25 mg tablet,ex tended release 24 hr TAKE 1 TABLET BY MOUTH DAILY 03/13 completed Not Available Not Available Not Available azelastin e 137 mcg (0.1 %) nasal spray Russell 2 sprays twice a day by intranas al route. active Not Available Not Available No t Available Cheratuss in AC 10 mg-100 mg/5 mL oral liquid TAKE 10 ML BY MOUTH EVERY 6 HOURS NEEDED 09/25 completed Not Available Not Available Not Available hydroxych loroquine 200 mg tablet once a day by mouth 08/30 completed Not Available Not Available Not Available albuterol sulfate HFA 90 mcg/actua tion aerosol inhaler USE 2 INHALATI ONS BY MOUTH EVERY 4 HOURS NEEDED 12/02 completed Not Available Not Available Not Available doxycycli ne hyclate 20 mg tablet once daily by mouth active Not Available Not Available No t Available pioglitaz one 30 mg tablet TAKE 1 TABLET BY MOUTH EVERY DAY DIRECTED active Not Available Not Available No t Available ketoconaz ole 2 % topical cream active Not Available Not Available Not Available metformin ER 500 mg tablet,ex tended release 24 hr TAKE 2 TABLETS BY MOUTH DAILY active Not Available Not Available No t Available naproxen 500 mg tablet Take 1 tablet twice a day by oral route as needed. 12/30 completed Not Available Not Available Not Available oxycodone 5 mg tablet TAKE 1 TABLET BY MOUTH EVERY 4 HOURS NEEDED FOR MODERATE PAIN 02/13 completed Not Available Not Available Not Available azelaic acid 15 % topical gel 12/02 completed Not Available Not Available Not Available metformin ER 1,000 mg tablet,ex tended release 24hr (osmotic) Take 1 tablet every day by oral route. 08/06 completed Not Available Not Available Not Available fluticaso ne propionat e 2 sprays in ea nostril BID 11/14 completed Not Available Not Available Not Available Humira Pen 40 mg/0.8 mL subcutane ous kit Inject 0.8 mL every 2 weeks by subcutan eous route. active Not Available Not Available No t Available diclofena c 1 % topical gel APPLY 2 GRAM TO THE AFFECTED AREA 4 TIMES PER DAY 03/31 completed Not Available Not Available Not Available GaviLyte- G 236 gram-22.7 4 gram-6.74 gram-5.86 gram oral solution 09/26 completed Not Available Not Available Not Available Xarelto 20 mg tablet TAKE 1 TABLET BY MOUTH DAILY active Not Available Not Available No t Available Fluzone High-Dose (PF) 180 mcg/0.5 mL intramusc ular syringe TO BE ADMINIST ERED BY PHARMACI ST FOR IMMUNIZA TION 04/02 completed Not Available Not Available Not Available Vitals None Recorded Social History Question Answer Notes LastModified by Organization Details LastModified Time Tobacco Smoking Status Former Smoker in 20's only Tete Melgar [facility] 04/28/2016 09:34:03 Do You Have An Advance Directive? Yes [email or web address] Information not available 12/18/2022 What Is Your Level Of Alcohol Consumption? Occasional Information not available 05/09/2016 Are You Blind Or Do You Have Difficulty Seeing? No Information not available 11/13/2022 What Is Your Level Of Caffeine Consumption? Occasional Cup Daily Information not available 11/13/2022 How Much Tobacco Do You Chew? None Information not available 06/12/2016 Are You Currently Employed? No Information not available 11/13/2022 What Type Of Diet Are You Following? REGULAR Information not available 11/13/2022 Which Illicit Or Recreational Drugs Have You Used? No Information not available 09/26/2017 Do You Or Have You Ever Used E-cigarettes Or Vape? Never Used Electronic Cigarettes Information not available 11/13/2022 Education Post Graduate [email or web address] Information not available 12/18/2022 What Is The Highest Grade Or Level Of School You Have Completed Or The Highest Degree You Have Received? [id number] Information not available 11/13/2022 What Is Your Occupation? Retired Information not available 11/13/2022 Have There Been Any Changes To Your Family Or Social Situation? No Information not available 11/13/2022 When Did You Quit Smoking? 16+yearssince lastcigarette Information not available 11/13/2022 Are There Any Guns Present In Your Home? No Information not available 05/09/2016 Do You Use Insect Repellent Routinely? No Information not available 11/13/2022 Live Alone Or With Others? With Others [email or web address] Information not available 12/18/2022 Patient Has Health Care Proxy Signed And In Chart Yes Information not available 11/13/2022 CCM Consent Discussion 05/10/2022 [email or web address] Information not available 05/16/2022 Marital Status Marlene [email or web address] Informatio n not available 12/18/2022 Mosquito Repellent Used Routinely Yes [email or web address] Information not available 12/18/2022 What Was The Date Of Your Most Recent Tobacco Screening? 12/02/2024 Information not available 12/02/2024 How Many Children Do You Have? 3 5 Grandchildren Information not available 05/09/2016 Are There Any Occupational Health Risks Where You Work? No Information not available 11/13/2022 What Is Your Current Pack Years? 10packyears Information not available 11/13/2022 What Is Your Relationship Status? Information not available 11/09/2021 Do You Use Your Seat Belt Or Car Seat Routinely? Yes Information not available 11/09/2021 Seat Belts Used Routinely Yes [email or web address] Information not available 12/18/2022 Are You Sexually Active? No Information not available 11/13/2022 Smoke Alarm In Home Yes [email or web address] Information not available 12/18/2022 Do You Have Smoke And Carbon Monoxide Detectors In Your Home? Yes Information not available 11/13/2022 Are You Passively Exposed To Smoke? No Information not available 11/13/2022 Do You Or Have You Ever Used Smokeless Tobacco? Never Used Smokeless Tobacco Information not available 11/13/2022 What Types Of Sporting Activities Do You Participate In? Golf Information not available 05/09/2016 General Stress Level Low [email or web address] Information not available 12/18/2022 Do You Feel Stressed (tense, Restless, Nervous, Or Anxious, Or Unable To Sleep At Night)? [id number] Information not available 11/13/2022 Do You Use Any Illicit Or Recreational Drugs? No Information not available 11/13/2022 Do You Use Sunscreen Routinely? No Information not available 11/13/2022 How Many Years Have You Smoked Tobacco? 5 Information not available 11/13/2022 Do You Or Have You Ever Used Any Other Forms Of Tobacco Or Nicotine? No [email or web address] Information not available 12/18/2022 Sex: Male Functional Status Question Answer Note LastModified by Organization D etails LastModified Time What is your exercise level? Moderate Information not available 11/09/2021 Mental Status None recorded. Family History Relationship Description Onset Age of this Age Resolved Age Notes LastModified by Organization Details LastModified Time Mother Coronary arterioscler osis 72 [email or web address] Not available 2022 09:34:22 Mother Myocardial infarction 72 [email or web address] Not available 05/09 15:15:07 Father Alcoholism [email or web address] Not availab le 05/09/2016 15:15:18 Father Diabetes mellitus 62 [email or web address] Not available 2015 15:15:32 Medical History Condition Response Diabetes Type II Y Atrial Fibrillation Y Osteoarthritis Y Hypothyroid Y rosacea Y Hypertension Y Immunizations Vaccine Type Date Status Note Provider Nam e and Address Organization Details Recorded Time Influenza, high-dose, trivalent, PF 7 completed Not Available [facility] 12/12/2019 02:21:40 Tdap 5 completed Not Available [facility] 12/06/2023 01:33:22 zoster live 4 completed Not Available [facility] 12/06/2023 01:33:22 pneumococcal, unspecified formulation 4 completed Not Available [facility] 12/06/2023 01:33:22 Pneumococcal conjugate PCV 13 5 completed Not Available [facility] 12/06/2023 01:33:22 influenza, unspecified formulation 4 completed Not Available [facility] 12/06/2023 01:33:22 Influenza, high-dose, trivalent, PF 6 completed Not Available [facility] 12/06/2023 01:33:22 pneumococcal polysaccharide PPV23 4 completed Not Available [facility] 12/06/2023 01:33:22 Influenza, split virus, quadrivalent, preservative 8 completed Not Available [facility] 12/06/2023 01:33:22 Pneumococcal conjugate PCV 13 8 completed Not Available [facility] 12/06/2023 01:33:22 Influenza, high-dose, quadrivalent, PF 0 completed JANN Rothman, [facility] 09/08/2020 14:04:25 Influenza, split virus, quadrivalent, preservative 9 completed Not Available [facility] 12/06/2023 01:33:22 Influenza, split virus, quadrivalent, preservative 9 completed Not Available [facility] 12/06/2023 01:33:22 Influenza, high-dose, quadrivalent, PF 1 completed Melissa Carney RN BSN null, [facility] 09/06/2021 14:03:17 COVID-19, mRNA, LNP-S, PF, 30 mcg/0.3 mL dose 1 completed Not Available [facility] 12/06/2023 01:33:22 COVID-19, mRNA, LNP-S, PF, 30 mcg/0.3 mL dose 1 completed Not Available [facility] 12/06/2023 01:33:22 COVID-19, mRNA, LNP-S, PF, 30 mcg/0.3 mL dose 1 completed Not Available [facility] 12/06/2023 01:33:22 COVID-19, mRNA, LNP-S, PF, 30 mcg/0.3 mL dose 2 completed Not Available [facility] 12/06/2023 01:33:22 COVID-19, mRNA, LNP-S, PF, 30 mcg/0.3 mL dose 2 completed Not Available [facility] 12/06/2023 01:33:22 Influenza, split virus, quadrivalent, preservative 2 completed Not Available [facility] 12/06/2023 01:33:22 SARS-COV-2 (COVID-19) vaccine, UNSPECIFIED 3 completed Not Available [facility] 12/06/2023 01:33:22 influenza, unspecified formulation 3 completed Not Available [facility] 12/06/2023 01:33:22 zoster, unspecified formulation 3 completed Not Available [facility] 12/06/2023 01:33:22 Past Encounters Encounter ID Performer Location Encounter Start Date Encounter Closed Date Diagnosis/Indication Diagnosis SNOMED-CT Code Diagnosis ICD10 Code Diagnosis Note [id number] Nagi Whitman , PT Physical Therapy, [address] [address] 12/08/2024 09:54:51 12/10/2024 10:11:34 Cervical spondylosis 510614257 M47.812 79 year old {{female m robert*}} with findings most consistent with {{acute ch ronic* rec urrent}} Weakness in all 4 extremitie s. He now is approximat anna 1 month status post anterior cervical discectomy and fusion. He notes some improvemen t in lower extremity function. No significan t change in upper extremity strength. We focused today primarily on his upper quarter mobility and strength. We will further evaluate level for mobility and strength and follow-up. Patient has significan t functional limitation in their {{activiti es of daily living act ivities of daily living and work capacity a ctivities of daily living and exercise capacity a ctivities of daily living and recreation *}}. Skilled physical therapy is needed to safely and progressiv anna address impairment s and functional limitation s as outlined below.Adelaida ent Goals:To be able to Push, pull, lift, reach and carry as well as grasp for ADLs and recreation Without limitation s due to upper extremity [id number]. We will continue to monitor this but it is being addressed in occupation al therapy. To be able to walk community distances without loss of balance and to be able to climb stairs without the use of a rail.2024 distance is improving. Patient is significan tly less dependent on the use of his walking pole. Stair climbing is improving but continues to be difficult. We are using his ability to manage this stadium stairs at the [facility] as a proxy for his balance and strength Clinical Goals:1. Demonstrat e symmetric pain free active, passive and resisted motions of the neck and upper extremitie s.2. Demonstrat e sufficient muscular endurance to meet functional demands.3. Demonstrat e symmetric pain-free active, passive and resisted motions of the lower extremity. 4. Demonstrat e single leg balance of 10 seconds on each leg. 12/10/2024 patient is showing improvemen t in proximal shoulder strength, and lower extremity strength. This continues to be below functional levels however we have increased oir focus on increasing strength and balance for stair climbing. Treatment Plan: Patient to return for {{4 6* 8 1 0}} visits over {{4 8 12*} } weeks. We expect significan t change in pain, impairment and function in this time frame.Lisa tment to Include as appropriat e: therapeuti c exercise (14415), manual therapy (67684), therapeuti c activity (76546), gait training (50164), neuromuscu lar reeducatio n (36013), mechanical traction (14446) [id number] Nagi Whitman , PT Physical Therapy, [address] [address] 12/22/2024 12:49:14 12/22/2024 15:31:46 Cervical spondylosis [id number] M47.812 79 year old {{female m robert*}} with findings most consistent with {{acute ch ronic* rec urrent}} Weakness in all 4 extremitie s. He now is approximat anna 1 month status post anterior cervical discectomy and fusion. He notes some improvemen t in lower extremity function. No significan t change in upper extremity strength. We focused today primarily on his upper quarter mobility and strength. We will further evaluate level for mobility and strength and follow-up. Patient has significan t functional limitation in their {{activiti es of daily living act ivities of daily living and work capacity a ctivities of daily living and exercise capacity a ctivities of daily living and recreation *}}. Skilled physical therapy is needed to safely and progressiv anna address impairment s and functional limitation s as outlined below.Adelaida ent Goals:To be able to Push, pull, lift, reach and carry as well as grasp for ADLs and recreation Without limitation s due to upper extremity [id number]. We will continue to monitor this but it is being addressed in occupation al therapy. To be able to walk community distances without loss of balance and to be able to climb stairs without the use of a rail.2024 distance is improving. Patient is significan tly less dependent on the use of his walking pole. Stair climbing is improving but continues to be difficult. We are using his ability to manage this stadium stairs at the [facility] as a proxy for his balance and strength Clinical Goals:1. Demonstrat e symmetric pain free active, passive and resisted motions of the neck and upper extremitie s.2. Demonstrat e sufficient muscular endurance to meet functional demands.3. Demonstrat e symmetric pain-free active, passive and resisted motions of the lower extremity. 4. Demonstrat e single leg balance of 10 seconds on each leg. 12/10/2024 patient is showing improvemen t in proximal shoulder strength, and lower extremity strength. This continues to be below functional levels however we have increased oir focus on increasing strength and balance for stair climbing. Treatment Plan: Patient to return for {{4 6* 8 1 0}} visits over {{4 8 12*} } weeks. We expect significan t change in pain, impairment and function in this time frame.Lisa tment to Include as appropriat e: therapeuti c exercise (77122), manual therapy (70211), therapeuti c activity (69993), gait training (15179), neuromuscu lar reeducatio n (44725), mechanical traction (18710) [id number] Wilma Darby LPN , [facility], [address] [place] [address] 01/01/2025 10:11:35 01/04/2025 12:11:24 Essential hypertension [id number] I10 Improved but still above goal [id number] Nagi Whitman , PT Physical Therapy, [facility] [address] [place] [address] 01/05/2025 11:29:07 01/05/2025 12:14:23 Cervical spondylosis [id number] M47.812 79 year old {{female m robert*}} with findings most consistent with {{acute ch ronic* rec urrent}} Weakness in all 4 extremitie s. Patient has significan t functional limitation in their {{activiti es of daily living act ivities of daily living and work capacity a ctivities of daily living and exercise capacity a ctivities of daily living and recreation *}}. Skilled physical therapy is needed to safely and progressiv anna address impairment s and functional limitation s as outlined below.Adelaida ent Goals:To be able to Push, pull, lift, reach and carry as well as grasp for ADLs and recreation Without limitation s due to upper extremity [id number]. We will continue to monitor this but it is being addressed in occupation al therapy. To be able to walk community distances without loss of balance and to be able to climb stairs without the use of a rail.2024 distance is improving. Patient is significan tly less dependent on the use of his walking pole. Stair climbing is improving but continues to be difficult. We are using his ability to manage this stadium stairs at the [facility] as a proxy for his balance and strength Clinical Goals:1. Demonstrat e symmetric pain free active, passive and resisted motions of the neck and upper extremitie s.2. Demonstrat e sufficient muscular endurance to meet functional demands.3. Demonstrat e symmetric pain-free active, passive and resisted motions of the lower extremity. 4. Demonstrat e single leg balance of 10 seconds on each leg. 12/10/2024 patient is showing improvemen t in proximal shoulder strength, and lower extremity strength. This continues to be below functional levels however we have increased oir focus on increasing strength and balance for stair climbing. Treatment Plan: Patient to return for {{4 6* 8 1 0}} visits over {{4 8 12*} } weeks. We expect significan t change in pain, impairment and function in this time frame.Lisa tment to Include as appropriat e: therapeuti c exercise (55671), manual therapy (61501), therapeuti c activity (32552), gait training (31928), neuromuscu lar reeducatio n (28764), mechanical traction (02088) Health Concerns Section Related Observation LastModified by Organization Detai ls LastModified Time None Recorded Concern Status LastModified by Organization Details LastModified Time None Recorded Payers Encounter Date Sequence Insurance Name Policy Number Policy Kulkarni Covered Member ID Kulkarni Member ID Guarantor Name 01/05/2025 2 [place] [employer] (MEDICARE SUPPLEMENT) [id number] Maxim Amaral [id number] Maxim Amaral 01/05/2025 1 [place]: [employer] Maxim Amaral [id number] Maxim Amaral Notes Date Note Type Note Provider Name and Address Organization Details Recorded Time 01/05/2025 text/html PT Initial Eval*Reported bypatient.History: ief complaint: (Upper extremity weakness, lower extremity weakness and balance impairment); On 07/17/2024 patient underwent anterior cervical discectomy and fusion performed by Dr. Julian. He had this procedure as he was demonstrating progressive weakness in all 4 extremities. Earlier this year he had bilateral carpal tunnel releases. The distance past he has had lumbar discectomy. Prior to surgery he was having significant difficulty walking and was demonstrating significant weakness in both hands. Since surgery feels that his walking has gotten better although the combination of recovery from surgery and pre-existing neuropathy so make is walking quite difficult. He has not noticed any change in his hand strength. Symptom intensity:average 4/10 Symptom duration:constantly Symptom change:symptoms are not changing Sleep Status:difficulty sleeping due to pain(At times due to back or neck pain) Prior History:no recent hospitalization; not currently taking a blood thinner; no allergy to latex; no falls in the past year;recent hospitalization;curr ently taking a blood thinner Prior Studies:none Prior Treatments:none Activities/Hobbies/E xercise:He has begun to walk more about 3000 steps a day and uses his recumbent bike at home Associated Symptoms:weight loss (7 lbs)(Prior to surgery);numbness;ti ngling(All 4 extremities); no nausea; no vomiting; no fever; no chills; no excessive fatigue; no confusion; no forgetfulness; no dizziness; no lightheadedness; no changes in urinary habits; no changes in bowel habits; no loss of pleasure or interest in activities; no feeling down or depressedDaily progress note*Reported bypatient.How are you feeling?improving (Lot of work but seeing progress.) Home program:Performing regularly; Steps down with the weather. Walking a bit outside but not much. Still shaky with [place] stairs and [place] stadium. That is what I would like to focus on. Patient Specific Functional Score:{{10 20 30 40 50 60* 70 80 90 100} } Percent limitation in Use of hands{{10 20 30 40 5 0 60 70* 80 90 100}} Percent limitation in Walking/balance Nagi Whitman, PT [address] [facility], [place], [address], [facility] [place] 12:12:35
--- OUTSIDE RECORDS SUMMARY | 2025-01-08 08:11 | XMS_ITS | Continuity of Care Document ---
Author Organization [facility], , [facility], OFFICE Address [address] [place] [address] Care Team Providers Care Director Hris Name Role Phone KATHY MAY Primary Care Provider [phone] DAVID MAHONEY Sports Medicine NAGI WHITMAN Physical Therapist VY SEGURA Ribbon Cutter JOHNNA HESS [employer] ZIMMER Sane Rn BETH MATHEWS Neurologist Assessment No assessment recorded. Plan of Treatment Reminders Order Date Submit Date Provider Last Modified By Organization Details Last Modified Time Details Appointments Follow Up, 2024 02:30P M Nagi Roy n, PT Not available Not available Not available Follow Up, 2024 10:00A M Nagi Roy n, PT Not available Not available Not available LAB Follow-Up 2024 08:35A M [facility] Lab Not available Not available Not available [...] Organization Details Recorded Time Atrial fibrillati on 61392757 Active 2014 Not Available [facility] 4 01:33:21 Diabetes mellitus 82282387 Active 2015 Not Available [facility] 4 01:33:22 Essential hypertensi on 73205213 Active 2015 Not Available [facility] 4 01:33:21 Hyperlipid emia 17601897 Active 2015 Not Available [facility] 4 01:33:21 Osteoarthr itis 884085575 Active 2015 neck, knee, hands Not Available [facility] 4 01:33:21 Hypothyroi dism 07364350 Active 2015 Not Available [facility] 4 01:33:21 Seasonal allergy 306858782 Active 2016 Not Available [facility] 4 01:33:21 Elbow joint pain 049383796 Completed 201610/01/2019 Kathy May MD [address] [place] [address], [address] , [facility] 9 14:21:17 Benign prostatic hyperplasi a with outflow obstructio n 675669101 Active 2017 Not Available [facility] 4 01:33:21 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 507125468 Active 2018 Not Available [facility] 4 01:33:21 Degenerati on of lumbar interverte bral disc 52833831 Active 2019 Not Available [facility] 4 01:33:21 Obstructiv e sleep apnea syndrome 21416106 Active 2020 Not Available [facility] 4 01:33:22 Polymyalgi a rheumatica 06735752 Completed 202211/14/2023 Kathy May MD [address] [place] [address], [address] , [facility] 3 10:50:43 Rheumatoid arthritis 61435515 Active 2022 Not Available [facility] 4 01:33:21 Spinal stenosis in cervical region 61244044 Active 2023 Kathy May MD [address] [place], [address] , [facility] 11:06:55 Diabetic peripheral neuropathy 534388281 Active 2024 Kathy May MD [address] [place] [address], [address] , [facility] 11:04:54 Notes:Some problems listed i n Documents: #[id number], #[id number], #[id number], #[id number] could not be added to this patient's chart. Please review these documents and add these problems to the patient's chart manually as needed. Problem Notes None recorded. Procedures Surgical History Date Name Laterality Status Provider Name and Address Organization Details Recorded Time 01/05/20 29627: Neuromuscular Re-Education completed Nagi Whitman, PT [address] [place], [address], [facility] 01/05/2025 12:12:05 01/05/20 Treatment and Advice completed Nagi Whitman, PT [address] [place], [address], [facility] 01/05/2025 12:06:35 12/22/19 34223: Neuromuscular Re-Education completed Nagi Whitman, PT [address] [place], [address], [facility] 12/22/2024 13:34:51 12/22/19 Treatment and Advice completed Nagi Whitman, PT [address] [place], [address], [facility] 12/22/2024 13:18:54 12/08/19 96888: Therapeutic Exercise completed Nagi Whitman, PT [address] [place], [address], [facility] 12/08/2024 10:31:52 12/08/19 25 Treatment and Advice completed Nagi Whitman, PT [address] [place], [address], [facility] 12/08/2024 10:28:48 11/05/20 24 08483: Therapeutic Exercise completed Nagi Whitman, PT [address] [place], [address], [facility] 11/05/2024 14:35:21 11/05/20 Treatment and Advice completed Nagi Whitman, PT [address] [place], [address], [facility] 11/05/2024 14:34:16 10/15/20 06855: Therapeutic Exercise completed Nagi Whitman, PT [address] [place], [address], [facility] 10/15/2024 18:20:55 10/15/20 Treatment and Advice completed Nagi Whitman, PT [address] [place], [address], [facility] 10/15/2024 15:04:06 09/29/20 35207: Therapeutic Exercise completed Nagi Whitman, PT [address] [place], [address], [facility] 09/29/2024 10:37:55 09/29/20 Treatment and Advice completed Nagi Whitman, PT [address] [place], [address], [facility] 09/29/2024 10:02:22 09/15/20 58001: Therapeutic Exercise completed Nagi Whitman, PT [address] [place], [address], [facility] 09/15/2024 10:35:38 09/15/20 Treatment and Advice completed Nagi Whitman, PT [address] [place], [address], [facility] 09/15/2024 10:29:49 09/08/20 92822: Therapeutic Exercise completed Nagi Whitman, PT [address] [place], [address], [facility] 09/08/2024 11:02:59 09/08/20 Treatment and Advice completed Nagi Whitman, PT [address] [place], [address], [facility] 09/08/2024 10:57:27 09/03/20 27320: Therapeutic Exercise completed Nagi Whitman, PT [address] [place], [address], [facility] 09/03/2024 14:23:47 09/03/20 Treatment and Advice completed Nagi Whitman, PT [address] [place], [address], [facility] 09/03/2024 12:12:37 09/01/20 39998: Therapeutic Exercise completed Nagi Whitman, PT [address] [place], [address], [facility] 09/01/2024 10:29:53 09/01/20 Treatment and Advice completed Nagi Whitman, PT [address] [place], [address], [facility] 09/01/2024 10:00:08 08/27/20 68530: Therapeutic Exercise completed Nagi Whitman, PT [address] [place], [address], [facility] 08/27/2024 12:04:26 08/27/20 Treatment and Advice completed Nagi Whitman, PT [address] [place], [address], [facility] 08/27/2024 12:00:40 08/25/20 51765: Therapeutic Exercise completed Nagi Whitman, PT [address] [place], [address], [facility] 08/27/2024 10:53:41 08/25/20 Treatment and Advice completed Nagi Whitman, PT [address] [place], [address], [facility] 08/25/2024 11:11:05 08/18/20 Physical Activity Counselling completed Nagi Whitman, PT [address] [place], [address], [facility] 08/18/2024 10:10:16 08/18/20 82281: PT Eval Low Complexity completed Nagi Whitman, PT [address] [place], [address], [facility] 08/18/2024 10:10:16 08/18/20 24 Treatment and Advice completed Nagi Whitman, PT [address] [place], [address], [facility] 08/18/2024 10:42:21 07/25/20 17 Gina - Colonoscopy completed Johnna Fuentes MD [address] [place], [address], [facility] 07/25/2017 10:13:24 05/08/20 17 Knee (Right) Injection completed JERAD ArambulaP [address] [place], [address], [facility] 05/08/2017 10:37:00 11/05/20 16 57457: Manual Therapy completed Murali Smith, PT, DPT, CSCS [address] [place], [address], [facility] 11/05/2016 10:04:55 10/22/20 16 23120: Manual Therapy completed Murali Smith, PT, DPT, CSCS [address] [place] [address], [address], [facility] 10/22/2016 10:55:58 10/11/20 16 76387: Therapeutic Exercise completed Murali Smith, PT, DPT, CSCS [address] [place] [address], [address], [facility] 10/11/2016 09:31:04 10/11/20 16 60509: Manual Therapy completed Murali Smith, PT, DPT, CSCS [address] [place] [address], [address], [facility] 10/11/2016 09:31:09 10/01/20 16 06455: PT Evaluation completed Murali Smith, PT, DPT, CSCS [address] [place] [address], [address], [facility] 10/01/2016 13:41:44 09/25/20 16 Medicare Wellness Visit completed Kathy May MD [address] [place] [address], [address], [facility] 09/25/2016 13:54:23 Imaging Results None recorded. Procedure Notes None recorded. Medical Equipment None Reported. Allergies No known drug allergies Medications Name Sig Start Date Stop Date Status Note LastModified by Organization Details LastModified Time metformin hydrochlo ride er 500 mg tb24 06/14 completed Not Available Not Available Not Available Prescript ion - Prior Authoriza tion Request 09/12 completed Not Available Not Available Not Available amlodipin e besylate 10 mg tabs 06/14 [...] e 137 mcg (0.1 %) nasal spray [place] 2 sprays twice a day by intranas [...] ular syringe TO BE ADMINIST ERED BY NO MARTEL FOR IMMUNIZA TION 04/02 completed Not Available Not Available Not Available Vitals Date Recorded Body height Heart rate Systolic blood pressure Diastolic blood pressure Provider Name and Address Organization Details Last Updated DateTime 01/01/2025 180.85 cm 58 /min 142 mm[Hg] 74 mm[Hg] Wilma Darby LPN [facility] 01/01/2025 10:43:24 Social History Question Answer Notes LastModified by Organization Details LastModified Time Tobacco Smoking Status [facility] 09:34:03 Do You Have An [...] Or The Highest Degree You Have Received? [id number] Information not available 11/13/2022 What Is Your [...] Anxious, Or Unable To Sleep At Night)? [id number] Information not available 11/13/2022 Do You Use [...] History Condition Response Diabetes Type II Y Osteoarthritis Y Atrial Fibrillation Y Hypothyroid Y rosacea Y Hypertension Y Immunizations Vaccine Type Date Status Note Provider Nam e and Address Organization Details Recorded Time Influenza, high-dose, trivalent, PF 7 completed Not Available [facility] 12/12/2019 02:21:40 Tdap 5 completed Not Available [facility] 12/06/2023 01:33:22 zoster live 4 completed Not Available [facility] 12/06/2023 01:33:22 pneumococcal, unspecified formulation 4 completed Not Available [facility] 12/06/2023 01:33:22 Pneumococcal conjugate PCV 13 5 completed [facility] Available [facility] 12/06/2023 01:33:22 influenza, unspecified formulation 4 completed Not Available [facility] 12/06/2023 01:33:22 Influenza, high-dose, trivalent, PF 6 completed Not Available [facility] 12/06/2023 01:33:22 pneumococcal polysaccharide PPV23 4 completed Not Available [facility] 12/06/2023 01:33:22 Influenza, split virus, quadrivalent, preservative 8 completed Not Available [facility] 12/06/2023 01:33:22 Pneumococcal conjugate PCV 13 8 completed Not Available [facility] 12/06/2023 01:33:22 Influenza, high-dose, quadrivalent, PF 0 completed Wilma Darby LPN null, [facility] 09/08/2020 14:04:25 Influenza, split virus, quadrivalent, preservative 9 completed Not Available [facility] 12/06/2023 01:33:22 Influenza, split virus, quadrivalent, preservative 9 completed Not Available [facility] 12/06/2023 01:33:22 Influenza, high-dose, quadrivalent, PF 1 completed Melissa Carney [employer] null, [facility] 09/06/2021 14:03:17 COVID-19, mRNA, LNP-S, PF, 30 mcg/0.3 mL dose 1 completed Not Available [facility] 12/06/2023 01:33:22 COVID-19, mRNA, LNP-S, PF, 30 mcg/0.3 mL dose 1 completed Not Available [facility] 12/06/2023 01:33:22 COVID-19, mRNA, LNP-S, PF, 30 mcg/0.3 mL dose 1 completed Not Available [facility] 12/06/2023 01:33:22 COVID-19, mRNA, LNP-S, PF, 30 mcg/0.3 mL dose 2 completed Not Available [facility] 12/06/2023 01:33:22 COVID-19, mRNA, LNP-S, PF, 30 mcg/0.3 mL dose 2 completed Not Available [facility] 12/06/2023 01:33:22 Influenza, split virus, quadrivalent, preservative 2 completed Not Available [facility] 12/06/2023 01:33:22 SARS-COV-2 (COVID-19) vaccine, UNSPECIFIED 3 completed Not Available [facility] 12/06/2023 01:33:22 influenza, unspecified formulation 3 completed Not Available [facility] 12/06/2023 01:33:22 zoster, unspecified formulation 3 completed Not Available [facility] 12/06/2023 01:33:22 Past Encounters Encounter ID Performer Location Encounter Start Date Encounter Closed Date Diagnosis/Indication Diagnosis SNOMED-CT Code Diagnosis ICD10 Code Diagnosis Note [id number] Kathy May MD , [facility], OFFICE [address] [place] [address] 12/02/2024 10:34:06 12/02/2024 11:09:45 Posterior rhinorrhea 67803236 R09.82 sx are controlled when he uses azelastine continuere fill today Atrial fibrillation 4943 6004 I48.91 on NOACnot sxstablera te controlcar diology visits and holter this spring Diabetes mellitus 792113 09 E11.9 A1Cat goal 6.7he is staying activeeati ng welltaking medication working w his neuropathy sx Essential hypertension 81253488 I10 elevated [facility] 130/80no changes todayf/u with BP clinic in a monthcardi ology following as well Rheumatoid arthritis [address] Coronado left, will follow w Dr Harry woodruff changing from [facility] as no longer on free program and expensive, has enough until well controlled meeting Dr Ayala in December Bilateral hearing loss 37136472 H91.93 pt notes some issues, notes [facility] audiology apptear canals are clear Diabetic p eripheral neuropathy 640808587 E11.40 chroniccon firmed w [facility] testingong oing issues w balancewor maisha w PTnormal DM foot exam Spinal melodie nosis in cervical region 28695651 M48.02 had four discs replacedsl ow recovery but feels he is improvedwo rking on regaining muscle and strenth in his hands [id number] Nagi Whitman , PT Physical Therapy, [facility] [address] [place] [address] 12/08/2024 09:54:51 12/10/2024 10:11:34 Cervical spondylosis 425713072 M47.812 79 year old {{female m robert*}} [...] Without limitation s due to upper extremity [id number]. We will continue to monitor this but [...] to manage this stadium stairs at the [facility] as a proxy for his balance and [...] Include as appropriat e: therapeuti c exercise (74011), manual therapy (26469), therapeuti c activity (30101), gait training (89916), neuromuscu lar reeducatio n (51324), mechanical traction (64648) [id number] Nagi Whimtan , PT Physical Therapy, [facility] [address] [place] [address] 12/22/2024 12:49:14 12/22/2024 15:31:46 Cervical spondylosis 443175556 M47.812 79 year old {{female m robert*}} [...] Without limitation s due to upper extremity [id number]. We will continue to monitor this but [...] to manage this stadium stairs at the [facility] as a proxy for his balance and [...] Include as appropriat e: therapeuti c exercise (77810), manual therapy (86428), therapeuti c activity (29715), gait training (59593), neuromuscu lar reeducatio n (16008), mechanical traction (28393) [id number] Wilma Draby LPN , [facility], [address]ICE [address] [place] [address] 01/01/2025 10:11:35 01/04/2025 12:11:24 Essential hypertension 01153959 I10 Improved but still above goal Health Concerns Section Related Observation LastModified by Organization Detai ls LastModified Time None Recorded Concern Status LastModified by Organization Details LastModified Time None Recorded Payers Encounter Date Sequence Insurance Name Policy Number Policy Kulkarni Covered Member ID Kulkarni Member ID Guarantor Name 01/01/2025 2 [place]MEDICARE SUPPLEMENT) [id number] Maxim Amaral [id number] Maxim Amaral 01/01/2025 1 MEDICARE B-[place]: [employer] Maxim Amaral [id number] Maxim Amaral Notes Date Note Type Note Provider Name and Address Organization Details Recorded Time 01/01/2025 text/html The patient had a blood pressure check at the [facility] Pressure clinic.Caffeine intake prior to visit: (n)Bladder empty: (y)The patient sat for about 5 minutes and the blood pressure was checked on the left arm with an adult cuff.Three readings were: 149/74, 149/68, 142/74With an average reading of 147/72The patient reports last dose of (name of the BP medication metoprolol 50mg, lisinopril 30mg taken at 8amThe patient is scheduled next BP check on 03/15/25has echo and holter sched w/cardiology 03/03, states home readings have been 110-130 systolic and will portal in readings for EZE reviewdenies JOHNSON, vision changes, SOB, chest pain/pressure, jaw/arm pain, nausea and agrees to seek ER eval if developing these sx JANN Rothman [place] - Merged With [facility] 01/01/2025 10:44:08
[2025-01-08 10:23] LABS: Basophils Percent Auto 1.1 % (0-2); Eosinophils Absolute Auto 0.8 X10*3/uL (0.0-0.4); Eosinophils Percent Auto 21.8 % (0-4); Hemoglobin 12.8 g/dl (14.0-18.0); Imm Gran Abs Auto 0.01 X10*3/uL (0.00-0.03); Imm Gran Pct Auto 0.3 % (0.0-0.4); Lymphocytes Percent Auto 26.2 % (20-40); MANUAL DIFF FLAG SCAN; Mean Corpuscular Hemoglobin 30.2 pg (27.0-33.0); Mean Corpuscular Volume 94.3 fL (80.0-98.0); Mean Platelet Volume 10.6 fL (9.4-12.4); Monocytes Absolute Auto 0.6 X10*3/uL (0.1-1.2); Monocytes Percent Auto 15.2 % (2-11); Neutrophils Absolute Auto 1.3 x10*3/uL (2.0-8.3); Neutrophils Percent Auto 35.4 % (45-73); Platelet Count 157 X10*3/uL (160-400); Red Blood Count 4.24 X10*6/uL (4.60-5.80); Red Cell Distribution Width 13.6 % (11.0-16.0); SCAN SMEAR FLAG 1; White Blood Count 3.6 X10*3/uL (4.8-10.8)
[2025-01-08 11:06] LABS: Alanine Aminotransferase 37 U/L (0-40); Albumin Level 3.5 g/dL (3.5-5.0); Alkaline Phosphatase 69 U/L (39-117); Anion Gap 11 (12-20); Aspartate Amino Transferase 39 U/L (5-37); Bilirubin Total 0.6 mg/dL (0.0-1.0); Blood Urea Nitrogen 16 mg/dL (9-16); C Reactive Protein 3.61 mg/dL (< or = 0.50); Calcium 8.9 mg/dL (8.4-10.2); Carbon Dioxide 26 mmol/L (22-29); Chloride 108 mmol/L (96-108); Estimated Glomerular Filt Rate > 60; Glucose Random 137 mg/dL (60-115); Potassium 4.3 mmol/L (3.3-5.1); Sodium 141 mmol/L (135-145); Total Protein 6.3 g/dL (6.5-8.0)
[2025-01-08 11:07] LABS: SLIDE REVIEW VERIFIED
[2025-01-08 11:24] LABS: Erythrocyte Sedimentation Rate 9 MM/HR (0-15)
[2025-01-08 11:38] LABS: HBc Num1 0.15 S/CO (0.00-0.79); Hepatitis A Antibody IgM 0.33 Index (0-0.79); Hepatitis B Core Antibody Nonreactive (Nonreactive); Hepatitis B Surface Antigen Negative (Negative); ~HepC Num1 0.17 S/CO (0.00-0.79); ~Hepatitis A Antibody IgM Nonreactive (Nonreactive); ~Hepatitis B Surface Antibody NONREACTIVE (Nonreactive); ~Hepatitis C Antibody Nonreactive (Nonreactive)
[2025-01-11 08:29] LABS: TS Negative Control Passed; TS Panel A 0; TS Panel B 1; TS Positive Control Passed; TSpotTB Negative (Negative)
== END 2025-01-08 08:09 | disposition home or self-care (01) ==
LOC: HO.10HDL 08:08
PROVIDERS: Visit Provider Student in an Organized Health Care Education/Training Program
DX: M06.00 Rheumatoid arthritis without rheumatoid factor, unspecified site (principal); Z11.59 Encounter for screening for other viral diseases; Z11.7 Encounter for testing for latent tuberculosis infection; Z72.89 Other problems related to lifestyle
CPT/HCPCS: 36415; 80053; 85025; 85652; 86140; 86481; 86704; 86706; 86709; 86803; 87340

== ENCOUNTER 2025-01-12 09:16 | Outpatient (AMB) | payer MEDICARE, BC, SELFPAY ==
--- NOTE | 2025-01-12 09:23 | MHC.OFFVIS ---
Vital Signs 01/12/25 09:30 Height 5 ft 11 in Weight 169 lb 15.622 oz BMI 23.7 BP 142/70 H Blood Pressure Location Lt brachial Position Sitting Pulse 57 Pulse Source Pulse Oximeter Pulse Oximetry (%) 99 Oxygen Delivery Method Room Air Intake Visit Reasons: RA Intake Note: Patient presents for RA. Folic Acid Script is to be sent to [facility] Allergies cats Allergy (Intermediate, Uncoded 04/21/24 12:23) Headache Medication List - Last Reconciled 01/12/25 by Beatriz Ayala MD acetaminophen (Tylenol Extra Strength) 500 mg PO Q6H PRN adalimumab (Humira(CF) Pen) inject one - 40 mg/0.8 mL pen every 2 weeks subcut albuterol sulfate 90 mcg/actuation (ProAir HFA) 2 puffs inhalation Q6H PRN atorvastatin 80 mg PO DAILY azelaic acid 15% 1 appl topical BID azelastine intranasal coenzyme Q10 (Ultra CoQ10) 150 mg PO DAILY cyanocobalamin (vitamin B-12) 500 mcg PO DAILY 30 days doxycycline hyclate 20 mg PO DAILY fluticasone propionate 50 mcg/actuation (Allergy Relief (fluticasone)) 2 sprays intranasal BID folic acid 1 mg PO DAILY gabapentin 300 mg PO TID PRN glimepiride 6 mg PO QAM ketoconazole 2% 1 appl topical DAILY levothyroxine 125 mcg PO DAILY lisinopril 30 mg PO DAILY melatonin 3 mg PO BEDTIME PRN metformin ER 500 mg PO BID metoprolol succinate ER 50 mg PO DAILY multivitamin 1 tab PO DAILY rivaroxaban (Xarelto) 20 mg PO DAILY terazosin 5 mg PO BEDTIME HPI Comments Details: Patient is a 79-year-old male with hyperlipidemia, hypothyroidism, diabetes complicated by neuropathy, hypertension, atrial fibrillation on Eliquis, 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 Castillo. At that time he was doing reasonably well overall, undergoing physical therapy post surgery for his vertebrae fusion. There was some concern about his Humira coverage due to insurance/assistance program issues. Increased Humira to every 3 weeks to stretch out the dose. Patient has been doing okay on the every 3 week dose Currently doing PT for his hands post CTS release surgery Rheumatologic History: Seronegative diagnosed 12/17 has hx of PSO HCQ started 12/17 ineffective & caused PSO flare DC 07/17 MTX started 07/17 ineffective DC 09/2023 Humira 09/2023 effective PMR 2021 Tapered off prednisone Initial history: This is a 77-year-old male with past medical history of hypertension, dyslipidemia, type 2 diabetes mellitus, obstructive sleep apnea degenerative disc disease of her lumbar spine presents for evaluation of PMR. Condition started the end of July patient noticing generalized stiffness of his neck, shoulders, hands, thighs. Stiffness improves in about 8 hours. Was evaluated by his PCP and was found to have significantly elevated inflammatory markers. He was started on prednisone 15 mg daily with dramatic improvement of his symptoms however his blood sugars were significantly elevated his prednisone was tapered to 7.5 mg daily. Patient felt that the higher dose of prednisone was more helpful. Was also found to have positive Lyme serology and received a 28 day course of doxycycline. He denied any tick bites and denied any activities that would put him at risk of a tick bite. Denies any skin rashes. He also denies any joint pain, jaw claudication, tongue pain. Denies any claudication of his hands or feet. Denies headaches, fevers, weight loss or blurry vision. Current Rheumatology Medication(s): Humira 40mg SC every 3 weeks [facility] Medical History (Updated 01/12/25 @ 09:46 by Beatriz Ayala MD) Encounter for monitoring of adalimumab therapy PMR (polymyalgia rheumatica) Low back pain, unspecified Psoriasis Degeneration of intervertebral disc of lumbar region Osteoarthritis Atrial fibrillation Hyperlipidemia Essential hypertension Obstructive sleep apnea Diabetes Hypothyroidism Surgical History (Updated 11/03/24 @ 11:22 by [place] Cast) H/O cervical spine surgery (~06/2024) H/O knee surgery H/O heart surgery Hx of excision of lamina of lumbar vertebra for decompression of spinal cord Hx of hernia repair Family History Mother Coronary arteriosclerosis Myocardial infarction Father Alcoholism Diabetes Social History Household Members: Spouse Household Members Other:: Alcohol intake: current Alcohol intake frequency: holidays/special occasions only Patient Tobacco Use Status: Former Tobacco user Current occupational status: retired 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 Review of Systems Const Details: Review of Systems Constitutional: Denies fever, chills, weight loss ENT: Denies vision changes, eye pain or eye redness, dental caries, dry mouth GI: Denies nausea, vomiting, diarrhea, abdominal pain, change in BM Pulm: Denies SOB, LESLIE, hemoptysis, wheezing Cards: Denies chest pain, palpitations Skin: Denies Raynaud's, rash, nail changes, photosensitivity, 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 Well appearing and in no apparent painful distress HEENT Conjunctiva and sclera clear. ?Pupils equal round and reactive to light. ?No lymphadenopathy. ? CHEST/RESPIRATORY SYSTEM Normal respiratory effort and able to speak in complete sentences. ?Clear to auscultation bilaterally. ?No crackles, rales, rhonchi, wheezes heard. CARDIAC SYSTEM Regular rate and rhythm. ?S1 and S2 heard no murmurs. 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 No deformities noted. ?No synovitis noted to the MCPs, PIPs or DIPs. ?No tenderness to palpation of these joints. Bilateral thenar wasting and guttering of the dorsal interossei Wrists: ?Full range of motion at the wrists without pain. ?No tenderness to palpation or synovitis noted to the wrists. Elbows: Full range of motion without pain. No tenderness, weakness, swelling, increased warmth or erythema. Shoulders: Full range of motion without pain. No tenderness, weakness, swelling, increased warmth or erythema. Hips: Full range of motion without pain. Hip bursa: No tenderness to palpation Knees: ?Full range of motion. ?No tenderness, swelling, increased warmth or erythema.?No effusion or crepitations Ankles: Full range of motion. ?No tenderness, swelling, increased warmth or erythema.? Feet: ?Negative squeeze test. ?No tenderness to palpation or swelling of the MTPs. Tender points:?No tenderness to palpation of the bilateral trapezius, supraspinatus, greater trochanters, anterior costochondral junctions, bilateral gluteal areas, bilateral suboccipital muscle insertions SKIN Skin intact without rashes. Results Reviewed Results Reviewed: Laboratory Tests 11/07/22 01/22/24 01/08/25 10:45 08:00 08:11 WBC 3.6 L RBC 4.24 L Hgb 12.8 L Hct 40.0 L Plt Count 157 L Neut % (Auto) 35.4 L Absolute Neuts (auto) 1.3 L ESR 9 Sodium 141 Potassium 4.3 Chloride 108 Carbon Dioxide 26 BUN 16 Creatinine 1.00 Calcium 8.9 Total Bilirubin 0.6 AST 39 H ALT 37 Alkaline Phosphatase 69 C-Reactive Protein 3.61 H Total Protein 6.3 L Albumin 3.5 Ur Protein/Creat Ratio mg/mg 0.167 H Rheumatoid Factor < 13.0 Cycl Citrul Peptide IgG <16 FAINA Screen POSITIVE A FAINA Titer 1:40 H Hepatitis A IgM Ab Nonreactive Hep Bs Antigen Negative Hep Bs Antibody NONREACTIVE Hep B Core Total Ab Nonreactive Hepatitis C Ab (EIA) Nonreactive TB Test (T-Spot) Com Negative Assessment & Plan Assessment & Plan (1) Seronegative rheumatoid arthritis: Comment: Seronegative diagnosed 12/17 has hx of PSO HCQ started 12/17 ineffective & caused PSO flare DC 07/17 MTX started 07/17 ineffective DC 09/2023 Humira 09/2023 effective Code(s): M06.00 - Rheumatoid arthritis without rheumatoid factor, unspecified site Category: Medical Plan: #Seronegative RA Patient is a 73-year-old male with seronegative RA currently in remission on Humira. Did not meet criteria for the financial assistance. Currently has enough Humira to Last up till May and this is using it every 3 weeks. We will switch him to Humira bio similar Plan - Stop Humira - Start adalimumab-atty 40mg SC every 2 weeks - RTC 4 months - Labs before visit: CBC, CMP, ESR, CRP (2) Elevated C-reactive protein (CRP): Code(s): R79.82 - Elevated C-reactive protein (CRP) Plan: #Elevated CRP Patient with significantly elevated CRP Noted that he recently had a febrile illness about 2-3 days prior to the blood work being taken. We will need to recheck his blood work to make sure that the CRP resolves. Plan - Recheck CRP in 2 weeks (3) Pancytopenia: Code(s): D61.818 - Other pancytopenia Plan: #Pancytopenia Blood work today shows pancytopenia, specifically neutropenia. He does note that he recently had a febrile illness which could contribute to his pancytopenia. We will recheck his blood work in 2 weeks to ensure resolution. If no resolution we will need to investigate for possible Felty syndrome (4) Encounter for monitoring of adalimumab therapy: Code(s): Z51.81 - Encounter for therapeutic drug level monitoring; Z79.620 - detention (current) use of immunosuppressive biologic Category: Medical Plan: #Long-term Use of TNF Inhibitors: Adalimumab Discussed with the patient the benefits and risks of TNF inhibitors for the management of the rheumatic condition Benefits include reduce pain, maintenance of remission and reduction of flares as well as ?progression of the disease Risks include injection sites/infusion reactions, serious infections (such as bacterial infections, opportunistic infections), malignancy, delaminating syndromes, autoimmune phenomena, CHF exacerbations, palmar plantar psoriasis and cytopenias Recommended rotating injection sites, and holding medication during and for up to 1 week after resolution of a febrile illness or open skin wound Plan I spent 35 minutes reviewing the record and labs, taking a history, examining the patient, discussing the treatment plan and documenting in the medical record Orders: Orders Complete Blood Count Auto Diff 4 Months M06.00 - Rheumatoid arthritis without rheumatoid factor, unspecified site, Z51.81 - Encounter for therapeutic drug level monitoring, Z79.620 - 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 Panel 4 Months M06.00 - Rheumatoid arthritis without rheumatoid factor, unspecified site, Z51.81 - Encounter for therapeutic drug level monitoring, Z79.620 - termite control servicer (current) use of immunosuppressive biologic Erythrocyte Sedimentation Rate 4 Months M06.00 - Rheumatoid arthritis without rheumatoid factor, unspecified site, Z51.81 - Encounter for therapeutic drug level monitoring, Z79.620 - detention (current) use of immunosuppressive biologic Complete Blood Count Auto Diff 2 Weeks B34.9 - Viral infection, unspecified Comprehensive Met. Panel 2 Weeks B34.9 - Viral infection, unspecified C Reactive Protein 2 Weeks B34.9 - Viral infection, unspecified Erythrocyte Sedimentation Rate 2 Weeks B34.9 - Viral infection, unspecified C Reactive Protein 4 Months M06.00 - Rheumatoid arthritis without rheumatoid factor, unspecified site, Z51.81 - Encounter for therapeutic drug level monitoring, Z79.620 - termite control servicer (current) use of immunosuppressive biologic Medications: New adalimumab-aaty 40 mg (0.4 mL) subcut Q2W 2 ea 4RF M06.00 - Rheumatoid arthritis without rheumatoid factor, unspecified site Discontinued adalimumab (Humira(CF) Pen) Discontinued Reason: Doctor's Order inject one - 40 mg/0.8 mL pen every 2 weeks subcut 2 ea 2RF Coding Level of Care Code Est Pt Level 4 (65959) Complex EM visit Add On G2211 Diagnoses Seronegative rheumatoid arthritis M06.00 Elevated C-reactive protein (CRP) R79.82 Pancytopenia D61.818 Encounter for monitoring of adalimumab therapy Z51.81; Z79.620
[2025-01-12 09:30] VITALS: BP 142/70; PULSE 57; O2SAT 99; BMI 23.7
--- OUTSIDE RECORDS SUMMARY | 2025-01-12 09:57 | XMS_ITS | Continuity of Care Document ---
Author Organization [facility], Physical Therapy, [facility] Address [address] [place] [address] Care Team Providers Care It Operations Manager Name Role Phone KATHY MAY Primary Care Provider DAVID MAHONEY Sports Medicine NAGI WHITMAN Physical Therapist VY SEGURA [employer] JOHNNA HESS Sports Development Officer GUSTAVO ZIMMER Set Up Machinist BETH JULIAN Neurologist Assessment Encounter Date Assessment [...] Not available LAB Follow-Up 2024 08:35A M [facility] Lab Not available Not available Not [...] Organization Details Recorded Time Atrial fibrillati on 45653554 Active 2014 Not Available [facility] 4 01:33:21 Diabetes mellitus 58004781 Active 2015 Not Available [facility] 4 01:33:22 Essential hypertensi on 84021842 Active 2015 Not Available [facility] 4 01:33:21 Hyperlipid emia 28691378 Active 2015 Not Available [facility] 4 01:33:21 Osteoarthr itis 288393816 Active 2015 neck, knee, hands Not Available [facility] 4 01:33:21 Hypothyroi dism 51298312 Active 2015 Not Available [facility] 4 01:33:21 Seasonal allergy 082028218 Active 2016 Not Available [facility] 4 01:33:21 Elbow joint pain 069197192 Completed 201610/01/2019 Kathy May MD [address] [place] [address], [phone] , [facility] 9 14:21:17 Benign prostatic hyperplasi a with outflow obstructio n 396330327 Active 2017 Not Available [facility] 4 01:33:21 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 2018 Not Available [facility] 4 01:33:21 Degenerati on of lumbar interverte bral disc 91506726 Active 2019 Not Available [facility] 4 01:33:21 Obstructiv e sleep apnea syndrome 17719225 Active 2020 Not Available [facility] 4 01:33:22 Polymyalgi a rheumatica 66003943 Completed 202211/14/2023 Kathy May MD [address] [place] [address], [phone] , [facility] 3 10:50:43 Rheumatoid arthritis 35086862 Active 2022 Not Available [facility] 4 01:33:21 Spinal stenosis in cervical region 02487283 Active 2023 Kathy May MD [address] [place] [address], [phone] , [facility] 5 11:06:55 Diabetic peripheral neuropathy 341506108 Active 2024 Kathy May MD [address] [place] [address], [phone] , [facility] 5 11:04:54 Notes:Some problems listed i n Documents: #[id number], #[id number], #[id number], #[id number] could not be added to this patient's chart. Please review these documents and add these problems to the patient's chart manually as needed. Problem Notes None recorded. Procedures Surgical History Date Name Laterality Status Provider Name and Address Organization Details Recorded Time 01/05/20 05224: Neuromuscular Re-Education completed Nagi Whitman, PT [address] [place], [address], [facility] 01/05/2025 12:12:05 01/05/20 Treatment and Advice completed Nagi Whitman, PT [address] [place], [address], [facility] 01/05/2025 12:06:35 12/22/19 11579: Neuromuscular Re-Education completed Nagi Whitman, PT [address] [place], [address], [facility] 12/22/2024 13:34:51 12/22/19 Treatment and Advice completed Nagi Whitman, PT [address] [place], [address], [facility] 12/22/2024 13:18:54 12/08/19 66200: Therapeutic Exercise completed Nagi Whitman, PT [address] [place], [address], [facility] 12/08/2024 10:31:52 12/08/19 Treatment and Advice completed Nagi Whitman, PT [address] [place], [address], [facility] 12/08/2024 10:28:48 11/05/20 16096: Therapeutic Exercise completed Nagi Whitman, PT [address] [place], [address], [facility] 11/05/2024 14:35:21 11/05/20 Treatment and Advice completed Nagi Whitman, PT [address] [place], [address], [facility] 11/05/2024 14:34:16 10/15/20 32965: Therapeutic Exercise completed Nagi Whitman, PT [address] [place], [address], [facility] 10/15/2024 18:20:55 10/15/20 Treatment and Advice completed Nagi Whitman, PT [address] [place], [address], [facility] 10/15/2024 15:04:06 09/29/20 31959: Therapeutic Exercise completed Nagi Whitman, PT [address] [place], [address], [facility] 09/29/2024 10:37:55 09/29/20 Treatment and Advice completed Nagi Whitman, PT [address] [place], [address], [facility] 09/29/2024 10:02:22 09/15/20 62513: Therapeutic Exercise completed Nagi Whitman, PT [address] [place], [address], [facility] 09/15/2024 10:35:38 09/15/20 Treatment and Advice completed Nagi Whitman, PT [address] [place], [address], [facility] 09/15/2024 10:29:49 09/08/20 55581: Therapeutic Exercise completed Nagi Whitman, PT [address] [place], [address], [facility] 09/08/2024 11:02:59 09/08/20 Treatment and Advice completed Nagi Whitman, PT [address] [place], [address], [facility] 09/08/2024 10:57:27 09/03/20 65211: Therapeutic Exercise completed Nagi Whitman, PT [address] [place], [address], [facility] 09/03/2024 14:23:47 09/03/20 Treatment and Advice completed Nagi Whitman, PT [address] [place], [address], [facility] 09/03/2024 12:12:37 09/01/20 94281: Therapeutic Exercise completed Nagi Whitman, PT [address] [place], [address], [facility] 09/01/2024 10:29:53 09/01/20 Treatment and Advice completed Nagi Whitman, PT [address] [place], [address], [facility] 09/01/2024 10:00:08 08/27/20 59599: Therapeutic Exercise completed Nagi Whitman, PT [address] [place], [address], [facility] 08/27/2024 12:04:26 08/27/20 Treatment and Advice completed Nagi Whitman, PT [address] [place], [address], [facility] 08/27/2024 12:00:40 08/25/20 71749: Therapeutic Exercise completed Nagi Whitman, PT [address] [place], [address], [facility] 08/27/2024 10:53:41 08/25/20 Treatment and Advice completed Nagi Whitman, PT [address] [place], [address], [facility] 08/25/2024 11:11:05 08/18/20 Physical Activity Counselling completed Nagi Whitman, PT [address] [place], [address], [facility] 08/18/2024 10:10:16 08/18/20 39198: PT Eval Low Complexity completed Nagi Whitman, PT [address] [place], [address], [facility] 08/18/2024 10:10:16 08/18/20 Treatment and Advice completed Nagi Whitman, PT [address] [place], [address], [facility] 08/18/2024 10:42:21 07/25/20 17 Gina - Colonoscopy completed Johnna Fuentes MD [address] [place], [address], [facility] 07/25/2017 10:13:24 05/08/20 17 Knee (Right) Injection completed ALVINA Arambula [address] [place], [address], [facility] 05/08/2017 10:37:00 11/05/20 16 93171: Manual Therapy completed Murali Smith, PT, DPT, CSCS [address] [place] [address], [address], [facility] 11/05/2016 10:04:55 10/22/20 16 21536: Manual Therapy completed Murali Smith, PT, DPT, CSCS [address] [place] [address], [phone], [facility] 10/22/2016 10:55:58 10/11/20 16 61325: Therapeutic Exercise completed Murali Smith, PT, DPT, CSCS [address] [place] [address], [phone], [facility] 10/11/2016 09:31:04 10/11/20 16 03261: Manual Therapy completed Murali Smith PT, DPT, CSCS [address] [place], [address], [facility] 10/11/2016 09:31:09 10/01/20 16 28834: PT Evaluation completed Murali Smith, PT, DPT, CSCS [address] [place], [address], [facility] 10/01/2016 13:41:44 09/25/20 16 Medicare Wellness Visit completed Kathy May MD [address] [place], [address], [facility] 09/25/2016 13:54:23 Imaging Results None recorded. Procedure [...] e 137 mcg (0.1 %) nasal spray [place] 2 sprays twice a day by intranas [...] tablet TAKE 1 TABLET BY MOUTH DAILY 2024 active Not Available Not Available Not Avai lable Fluzone High-Dose (PF) 180 mcg/0.5 mL intramusc ular syringe TO BE ADMINIST ERED BY PHARMACI ST FOR IMMUNIZA TION 04/02 completed Not Available Not Available Not Available Vitals None Recorded Social History Question Answer Notes LastModified by Organization Details LastModified Time Tobacco Smoking Status Former Smoker in 20's only Tete Melgar [facility] 04/28/2016 09:34:03 Do You Have An [...] Or The Highest Degree You Have Received? [id number] Information not available 11/13/2022 What Is Your [...] Anxious, Or Unable To Sleep At Night)? [id number] Information not available 11/13/2022 Do You Use [...] high-dose, trivalent, PF 7 completed Not Available [facility] 12/12/2019 02:21:40 Tdap 5 completed Not Available [facility] 12/06/2023 01:33:22 zoster live 4 completed Not Available [facility] 12/06/2023 01:33:22 pneumococcal, unspecified formulation 4 completed Not Available [facility] 12/06/2023 01:33:22 Pneumococcal conjugate PCV 13 5 completed Not Available [facility] 12/06/2023 01:33:22 influenza, unspecified formulation 4 completed Not Available [facility] 12/06/2023 01:33:22 Influenza, high-dose, trivalent, PF 6 completed Not Available [facility] 12/06/2023 01:33:22 pneumococcal polysaccharide PPV23 4 completed Not Available [facility] 12/06/2023 01:33:22 Influenza, split virus, quadrivalent, preservative 8 completed Not Available [facility] 12/06/2023 01:33:22 Pneumococcal conjugate PCV 13 8 completed Not Available [facility] 12/06/2023 01:33:22 Influenza, high-dose, quadrivalent, PF 0 completed Wilma Darby LPN null, [facility] 09/08/2020 14:04:25 Influenza, split virus, quadrivalent, preservative 9 completed Not Available [facility] 12/06/2023 01:33:22 Influenza, split virus, quadrivalent, preservative 9 completed Not Available [facility] 12/06/2023 01:33:22 Influenza, high-dose, quadrivalent, PF 1 completed Melissa Carney RN BSN null, [facility] 09/06/2021 14:03:17 COVID-19, mRNA, LNP-S, PF, 30 mcg/0.3 mL dose 1 completed Not Available [facility] 12/06/2023 01:33:22 COVID-19, mRNA, LNP-S, PF, 30 mcg/0.3 mL dose 1 completed Not Available [facility] 12/06/2023 01:33:22 COVID-19, mRNA, LNP-S, PF, 30 mcg/0.3 mL dose 1 completed Not Available [facility] 12/06/2023 01:33:22 COVID-19, mRNA, LNP-S, PF, 30 mcg/0.3 mL dose 2 completed Not Available [facility] 12/06/2023 01:33:22 COVID-19, mRNA, LNP-S, PF, 30 mcg/0.3 mL dose 2 completed Not Available [facility] 12/06/2023 01:33:22 Influenza, split virus, quadrivalent, preservative 2 completed Not Available [facility] 12/06/2023 01:33:22 SARS-COV-2 (COVID-19) vaccine, UNSPECIFIED 3 completed Not Available [facility] 12/06/2023 01:33:22 influenza, unspecified formulation 3 completed Not Available [facility] 12/06/2023 01:33:22 zoster, unspecified formulation 3 completed Not Available [facility] 12/06/2023 01:33:22 Past Encounters Encounter ID Performer Location Encounter Start Date Encounter Closed Date Diagnosis/Indication Diagnosis SNOMED-CT Code Diagnosis ICD10 Code Diagnosis Note [id number] Nagi Whitman , PT Physical Therapy, [address] [address] 12/08/2024 09:54:51 12/10/2024 10:11:34 Cervical spondylosis 206497366 M47.812 79 year old {{female m robert*}} [...] Without limitation s due to upper extremity osccuify40. We will continue to monitor this but [...] to manage this stadium stairs at the [facility] as a proxy for his balance [...] pain, impairment and function in this time frame.Lias tment to Include as appropriat e: therapeuti c exercise (51954), manual therapy (79455), therapeuti c activity (21010), gait training (77171), neuromuscu lar reeducatio n (74907), mechanical traction (90034) [id number] Nagi Whitman , PT Physical Therapy, [address] [address] 12/22/2024 12:49:14 12/22/2024 15:31:46 Cervical spondylosis 523399657 M47.812 79 year old {{female m robert*}} [...] Without limitation s due to upper extremity vheivtje82. We will continue to monitor this but [...] to manage this stadium stairs at the [facility] as a proxy for his balance [...] Include as appropriat e: therapeuti c exercise (59657), manual therapy (88399), therapeuti c activity (12229), gait training (85953), neuromuscu lar reeducatio n (54806), mechanical traction (08883) [id number] Wilma Darby LPN , [facility], OFFICE [address] [place] [address] 01/01/2025 10:11:35 01/04/2025 12:11:24 Essential hypertension 45432745 I10 Improved but still above goal [id number] Nagi Whitman , PT Physical Therapy, [facility] [address] [place] [address] 01/05/2025 11:29:07 01/05/2025 12:14:23 Cervical spondylosis 550167037 M47.812 79 year old {{female m robert*}} [...] Without limitation s due to upper extremity njykysvh37. We will continue to monitor this but [...] to manage this stadium stairs at the [facility] as a proxy for his balance [...] Include as appropriat e: therapeuti c exercise (49489), manual therapy (14596), therapeuti c activity (26637), gait training (61805), neuromuscu lar reeducatio n (93686), mechanical traction (29587) Health Concerns Section Related Observation LastModified by Organization Detai ls LastModified Time None Recorded Concern Status LastModified by Organization Details LastModified Time None Recorded Payers Encounter Date Sequence Insurance Name Policy Number Policy Kulkarni Covered Member ID Kulkarni Member ID Guarantor Name 01/05/2025 2 [place]MEDICARE SUPPLE[place]) [id number] Maxim Amaral [id number] Maxim Amaral 01/05/2025 1 [place] [employer] Maxim Amaral [id number] Maxim Amaral Notes Date Note Type [...] change in his hand strength. Symptom intensity:average 10 Symptom duration:constantly Symptom change:symptoms are not changing [...] Walking/balance Nagi Whitman, PT [address] [facility], [place], [address], [facility] 01/05/2025 12:12:35
--- OUTSIDE RECORDS SUMMARY | 2025-01-12 09:58 | XMS_ITS | Continuity of Care Document ---
Author Organization [facility], , [facility], OFFICE Address [address] [place] [address] Care Team Providers Care Crane Hooker Name Role Phone KATHY MAY Primary Care Provider [phone] DAVID MAHONEY Sports Medicine NAGI WHITMAN Physical Therapist [phone] VY SEGURA Protective Services Social Worker [phone] JOHNNA HESS Senior Medical Billing Specialist GUSTAVO ZIMMER Live In Housekeeper Nanny BETH MATHEWS Neurologist Assessment No assessment recorded. Plan of Treatment Reminders Order Date Submit Date Provider Last Modified By Organization Details Last Modified Time Details Appointments Follow Up, 2024 02:30P M Nagi Roy n, PT Not available Not available Not available Follow Up, 2024 10:00A M Nagi Roy n, PT Not available Not available Not available LAB Follow-Up 2024 08:35A [facility] Lab Not available Not available Not [...] Organization Details Recorded Time Atrial fibrillati on 26500764 Active 2014 Not Available [facility] 4 01:33:21 Diabetes mellitus 33239396 Active 2015 Not Available [facility] 4 01:33:22 Essential hypertensi on 33612689 Active 2015 Not Available [facility] 4 01:33:21 Hyperlipid emia 90556655 Active 2015 Not Available [facility] 4 01:33:21 Osteoarthr itis 625013197 Active 2015 neck, knee, hands Not Available [facility] 4 01:33:21 Hypothyroi dism 93363918 Active 2015 Not Available [facility] 4 01:33:21 Seasonal allergy 055170419 Active 2016 Not Available [facility] 4 01:33:21 Elbow joint pain 605250393 Completed 201610/01/2019 Kathy May MD [address] [place] [address], [address] , [facility] 9 14:21:17 Benign prostatic hyperplasi a with outflow obstructio n 143856258 Active 2017 Not Available [facility] 4 01:33:21 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 858831546 Active 2018 Not Available [facility] 4 01:33:21 Degenerati on of lumbar interverte bral disc 30677621 Active 2019 Not Available [facility] 4 01:33:21 Obstructiv e sleep apnea syndrome 24722259 Active 2020 Not Available [facility] 4 01:33:22 Polymyalgi a rheumatica 12092873 Completed 202211/14/2023 Kathy May MD [address] [place] [address], [address] , [facility] 3 10:50:43 Rheumatoid arthritis 46703157 Active 2022 Not Available [facility] 4 01:33:21 Spinal stenosis in cervical region 98951301 Active 2023 Kathy May MD [address] [place], [address] , [facility] 11:06:55 Diabetic peripheral neuropathy 760009923 Active 2024 Kathy May MD [address] [place] [address], [address] , [facility] 11:04:54 Notes:Some problems listed i n Documents: #[id number], #[id number], #[id number], #[id number] could not be added to this patient's chart. Please review these documents and add these problems to the patient's chart manually as needed. Problem Notes None recorded. Procedures Surgical History Date Name Laterality Status Provider Name and Address Organization Details Recorded Time 01/05/20 02124: Neuromuscular Re-Education completed Nagi Whitman, PT [address] [place], [address], [facility] 01/05/2025 12:12:05 01/05/20 Treatment and Advice completed Nagi Whitman, PT [address] [place], [address], [facility] 01/05/2025 12:06:35 12/22/19 60709: Neuromuscular Re-Education completed Nagi Whitman, PT [address] [place], [address], [facility] 12/22/2024 13:34:51 12/22/19 Treatment and Advice completed Nagi Whitman, PT [address] [place], [address], [facility] 12/22/2024 13:18:54 12/08/19 95036: Therapeutic Exercise completed Nagi Whitman, PT [address] [place], [address], [facility] 12/08/2024 10:31:52 12/08/19 25 Treatment and Advice completed Nagi Whitman, PT [address] [place], [address], [facility] 12/08/2024 10:28:48 11/05/20 24 58093: Therapeutic Exercise completed Nagi Whitman, PT [address] [place], [address], [facility] 11/05/2024 14:35:21 11/05/20 Treatment and Advice completed Nagi Whitman, PT [address] [place], [address], [facility] 11/05/2024 14:34:16 10/15/20 87240: Therapeutic Exercise completed Nagi Whitman, PT [address] [place], [address], [facility] 10/15/2024 18:20:55 10/15/20 Treatment and Advice completed Nagi Whitman, PT [address] [place], [address], [facility] 10/15/2024 15:04:06 09/29/20 23773: Therapeutic Exercise completed Nagi Whitman, PT [address] [place], [address], [facility] 09/29/2024 10:37:55 09/29/20 Treatment and Advice completed Nagi Whitman, PT [address] [place], [address], [facility] 09/29/2024 10:02:22 09/15/20 27276: Therapeutic Exercise completed Nagi Whitman, PT [address] [place], [address], [facility] 09/15/2024 10:35:38 09/15/20 Treatment and Advice completed Nagi Whitman, PT [address] [place], [address], [facility] 09/15/2024 10:29:49 09/08/20 93643: Therapeutic Exercise completed Nagi Whitman, PT [address] [place], [address], [facility] 09/08/2024 11:02:59 09/08/20 Treatment and Advice completed Nagi Whitman, PT [address] [place], [address], [facility] 09/08/2024 10:57:27 09/03/20 30040: Therapeutic Exercise completed Nagi Whitman, PT [address] [place], [address], [facility] 09/03/2024 14:23:47 09/03/20 Treatment and Advice completed Nagi Whitman, PT [address] [place], [address], [facility] 09/03/2024 12:12:37 09/01/20 24000: Therapeutic Exercise completed Nagi Whitman, PT [address] [place], [address], [facility] 09/01/2024 10:29:53 09/01/20 Treatment and Advice completed Nagi Whitman, PT [address] [place], [address], [facility] 09/01/2024 10:00:08 08/27/20 92285: Therapeutic Exercise completed Nagi Whitman, PT [address] [place], [address], [facility] 08/27/2024 12:04:26 08/27/20 Treatment and Advice completed Nagi Whitman, PT [address] [place], [address], [facility] 08/27/2024 12:00:40 08/25/20 27924: Therapeutic Exercise completed Nagi Whitman, PT [address] [place], [address], [facility] 08/27/2024 10:53:41 08/25/20 Treatment and Advice completed Nagi Whitman, PT [address] [place], [address], [facility] 08/25/2024 11:11:05 08/18/20 Physical Activity Counselling completed Nagi Whitman, PT [address] [place], [address], [facility] 08/18/2024 10:10:16 08/18/20 82194: PT Eval Low Complexity completed Nagi Whitman, PT [address] [place], [address], [facility] 08/18/2024 10:10:16 08/18/20 24 Treatment and Advice completed Nagi Whitman, PT [address] [place], [address], [facility] 08/18/2024 10:42:21 07/25/20 17 Gina - Colonoscopy completed Johnna Fuentes MD [address] [place], [address], [facility] 07/25/2017 10:13:24 05/08/20 17 Knee (Right) Injection completed JERAD ArambulaP [address] [place], [address], [facility] 05/08/2017 10:37:00 11/05/20 16 52582: Manual Therapy completed Murali Smith, PT, DPT, CSCS [address] [place], [address], [facility] 11/05/2016 10:04:55 10/22/20 16 66584: Manual Therapy completed Murali Smith, PT, DPT, CSCS [address] [place] [address], [address], [facility] 10/22/2016 10:55:58 10/11/20 16 16935: Therapeutic Exercise completed Murali Smith, PT, DPT, CSCS [address] [place] [address], [address], [facility] 10/11/2016 09:31:04 10/11/20 16 91816: Manual Therapy completed Murali Smith, PT, DPT, CSCS [address] [place] [address], [address], [facility] 10/11/2016 09:31:09 10/01/20 16 17416: PT Evaluation completed Murali Smith, PT, DPT, CSCS [address] [place] [address], [address], [facility] 10/01/2016 13:41:44 09/25/20 16 Medicare Wellness Visit completed Kathy May MD [address] [place] [address], [address], [facility] 09/25/2016 13:54:23 Imaging Results None recorded. Procedure [...] e 137 mcg (0.1 %) nasal spray [place] 2 sprays twice a day by intranas [...] Not Available Not Avai lable Fluzone High-Dose 5655-7414 (PF) 180 mcg/0.5 mL intramusc ular syringe TO BE ADMINIST ERED BY NO MARTEL FOR IMMUNIZA TION 04/02 completed Not Available Not Available Not Available Vitals Date Recorded Body height Heart rate Systolic blood pressure Diastolic blood pressure Provider Name and Address Organization Details Last Updated DateTime 01/01/2025 180.85 cm 58 /min 142 mm[Hg] 74 mm[Hg] Wilma Darby LPN [facility] 01/01/2025 10:43:24 Social History Question Answer Notes LastModified by Organization Details LastModified Time Tobacco Smoking Status Former Smoker in 's only Tete Ramón palomino [facility] 04/28/2016 09:34:03 Do You Have An [...] Or The Highest Degree You Have Received? LD84623-6 Information not available 11/13/2022 What Is Your [...] Anxious, Or Unable To Sleep At Night)? FS9475-6 Information not available 11/13/2022 Do You Use [...] trivalent, PF 7 completed Not Available [facility] 12/12/2019 02:21:40 Tdap 5 completed Not Available [facility] 12/06/2023 01:33:22 zoster live 4 completed Not Available [facility] 12/06/2023 01:33:22 pneumococcal, unspecified formulation 4 completed Not Available [facility] 12/06/2023 01:33:22 Pneumococcal conjugate PCV 13 5 completed Not Available [facility] 12/06/2023 01:33:22 influenza, unspecified formulation 4 completed Not Available [facility] 12/06/2023 01:33:22 Influenza, high-dose, trivalent, PF 6 completed Not Available [facility] 12/06/2023 01:33:22 pneumococcal polysaccharide PPV23 4 completed Not Available [facility] 12/06/2023 01:33:22 Influenza, split virus, quadrivalent, preservative 8 completed Not Available [facility] 12/06/2023 01:33:22 Pneumococcal conjugate PCV 13 8 completed Not Available [facility] 12/06/2023 01:33:22 Influenza, high-dose, quadrivalent, PF 0 completed Wilma Darby LPN null, [facility] 09/08/2020 14:04:25 Influenza, split virus, quadrivalent, preservative 9 completed Not Available [facility] 12/06/2023 01:33:22 Influenza, split virus, quadrivalent, preservative 9 completed Not Available [facility] 12/06/2023 01:33:22 Influenza, high-dose, quadrivalent, PF 1 completed Melissa Carney RN BSN null, [facility] 09/06/2021 14:03:17 COVID-19, mRNA, LNP-S, PF, 30 mcg/0.3 mL dose 1 completed Not Available [facility] 12/06/2023 01:33:22 COVID-19, mRNA, LNP-S, PF, 30 mcg/0.3 mL dose 1 completed Not Available [facility] 12/06/2023 01:33:22 COVID-19, mRNA, LNP-S, PF, 30 mcg/0.3 mL dose 1 completed Not Available [facility] 12/06/2023 01:33:22 COVID-19, mRNA, LNP-S, PF, 30 mcg/0.3 mL dose 2 completed Not Available [facility] 12/06/2023 01:33:22 COVID-19, mRNA, LNP-S, PF, 30 mcg/0.3 mL dose 2 completed Not Available [facility] 12/06/2023 01:33:22 Influenza, split virus, quadrivalent, preservative 2 completed Not Available [facility] 12/06/2023 01:33:22 SARS-COV-2 (COVID-19) vaccine, UNSPECIFIED 3 completed Not Available [facility] 12/06/2023 01:33:22 influenza, unspecified formulation 3 completed Not Available [facility] 12/06/2023 01:33:22 zoster, unspecified formulation 3 completed Not Available [facility] 12/06/2023 01:33:22 Past Encounters Encounter ID Performer Location Encounter Start Date Encounter Closed Date Diagnosis/Indication Diagnosis SNOMED-CT Code Diagnosis ICD10 Code Diagnosis Note [id number] Kathy May MD , [facility], OFFICE [address] [place] [address] 12/02/2024 10:34:06 12/02/2024 11:09:45 Posterior rhinorrhea 13800703 R09.82 sx are controlled when he uses azelastine continuere fill today Atrial fibrillation 4943 6004 I48.91 on NOACnot sxstablera te controlcar diology visits and holter this spring Diabetes mellitus 074697 09 E11.9 A1Cat goal 6.7he is staying activeeati ng welltaking medication working w his neuropathy sx Essential hypertension 12399099 I10 elevated here [facility]at [facility] < 130/80no changes todayf/u with BP clinic in a monthcardi ology following as well Rheumatoid arthritis [address] Coronado left, will follow w Dr Harry woodruff changing from [facility] as no longer on free program and expensive, has enough until well controlled meeting Dr Ayala in December Bilateral hearing loss 86832170 H91.93 pt notes some issues, notes [facility] apptear canals are clear Diabetic p eripheral neuropathy 080537644 E11.40 chroniccon firmed w [facility] testingong oing issues w balancewor maisha w PTnormal DM foot exam Spinal melodie nosis in cervical region 71672485 M48.02 had four discs replacedsl ow recovery but feels he is improvedwo rking on regaining muscle and strenth in his hands [id number] Nagi Whitman , PT Physical Therapy, [facility] [address] [place] [address] 12/08/2024 09:54:51 12/10/2024 10:11:34 Cervical spondylosis 131427985 M47.812 79 year old {{female m robert*}} [...] Without limitation s due to upper extremity [id number]. We will continue to monitor this but [...] manage this stadium stairs at the [facility] as a proxy for his balance [...] impairment and function in this time frame.Lisa szymanski to Include as appropriat e: therapeuti c exercise (11871), manual therapy (57051), therapeuti c activity (60202), gait training (82177), neuromuscu lar reeducatio n (01764), mechanical traction (70940) [id number] Nagi Whitman , PT Physical Therapy, [facility] [address] [place] [address] 12/22/2024 12:49:14 12/22/2024 15:31:46 Cervical spondylosis 718924805 M47.812 79 year old {{female m robert*}} [...] Without limitation s due to upper extremity [id number]. We will continue to monitor this but [...] manage this stadium stairs at the [facility] as a proxy for his balance [...] Include as appropriat e: therapeuti c exercise (66515), manual therapy (26919), therapeuti c activity (95511), gait training (89161), neuromuscu lar reeducatio n (94660), mechanical traction (68961) [id number] Wilma Darby LPN , [facility], OFFICE [address] [place] [address] 01/01/2025 10:11:35 01/04/2025 12:11:24 Essential hypertension 19118999 I10 Improved but still above goal Health Concerns Section Related Observation LastModified by Organization Detai ls LastModified Time None Recorded Concern Status LastModified by Organization Details LastModified Time None Recorded Payers Encounter Date Sequence Insurance Name Policy Number Policy Kulkarni Covered Member ID Kulkarni Member ID Guarantor Name 01/01/2025 2 [place]EL[place] YOUNGBLOODBS (MEDICARE SUPPLEMENT) [id number] Maxim Amaral [id number] Maxim Amaral 01/01/2025 1 [place] [employer] SERVICES Maxim Amaral [id number] Maxim Aamral Notes Date Note Type Note Provider Name [...] ER eval if developing these sx JANN [place], [place] - [facility] 01/01/2025 10:44:08
--- OUTSIDE RECORDS SUMMARY | 2025-01-12 09:59 | XMS_ITS | Data Portability ---
Author Organization [facility], [facility] Address [address] [place] [address] Care Team Providers Care Phlebotomy Tech Name Role Phone KATHY MAY Primary Care Provider PEPE BOYD Sports Medicine NAGI WHITMAN Physical Therapist [phone] VY SEGURA Coding Tech JOHNNA HESS Encoding Machine Operator GUSTAVO ZIMMER Tipple Repairer BETH JULIAN Neurologist Assessment Encounter Date Assessment Date Assessment LastModified by Organization Details LastModified Time 12/08/2024 12/08/2024 10 PT sessions since initial evaluation on 08.18.24 Since our prior session patient reports improvement in symptom control and function. Clinically associated pain with ROM and resisted motions are improving. We will assess if adjustment to self care and home exercise as above help patient in progression toward their goals. Follow up: 2-3 weeks Patient is now at the end of their current plan of care. They have made improvement during the course of physical therapy but have not yet reached their goals. We believe they have a good rehabilitation potential to do so. We will update the plan of care as below. [email or web address] Not available 12/10/2024 08:45:21 12/22/2024 12/22/2024 11 PT sessions since initial evaluation on 08.18.24 Since our prior session patient reports improvement in symptom control and function. Clinically associated pain with ROM and resisted motions are improving. We will assess if adjustment to self care and home exercise as above help patient in progression toward their goals. Follow up: 2-3 weeks Patient is now at the end of their current plan of care. They have made improvement during the course of physical therapy but have not yet reached their goals. We believe they have a good rehabilitation potential to do so. We will update the plan of care as below. [email or web address] Not available 12/22/2024 13:36:33 01/05/2025 01/05/2025 12 PT sessions since initial [...] Appointments Follow Up, 2024 02:30P M Nagi rivas, PT Not available Not available Not available Follow Up, 2024 10:00A M Nagi Roy n, PT Not available Not available Not available LAB Follow-Up 2024 08:35A M [facility] Lab Not available Not available Not available Wellness Visit 2024 11:15A M Kathy May MD Not available Not available Not available Lab None recorded. Referral None recorded. Procedures None recorded. Surgeries None recorded. Imaging None recorded. Medication Orders azelastin e 137 mcg (0.1 %) nasal spray 2024 025 [facility], [address] [place] [address], [id number], 12/02/2024 11:04:16 Patient TargetsNo targets recorded. Patient Instructions Encounter Date Encounter Id Patient Instructions Last Modified By Organization Details Last Modified Time 12/02/2024 [id number] try using psylli um fiber, metamucil, 1-2 times a day. use the powder version in 8 ounces or more of water or juice, shake in a ball jar or similar and drink quickly. [email or web address] Not available 12/02/2024 11:02:20 After a discussi on of treatment options, which included consideration of best practices and patient preferences, the following treatment plan and objectives were adopted: as above. [email or web address] Not available 12/02/2024 11:02:31 Reason for Referral None Reported. Results Created Date Observation Date Name Description Value Unit Range Abnormal Flag Note LastModifiedBy Organization Detail LastModifiedTime 11/12/20 24 11/12/2024 CBC WBC 4.15 K/??L 4.23-9 .07 low Not Available [address], [address], 11/12/2024 10:34:57 11/12/20 24 11/12/2024 CBC RBC 4.24 M/??L 4.63-6 .08 low Not Available [address], [address], 11/12/2024 10:34:57 11/12/20 24 11/12/2024 CBC HGB 12.9 g/dL 13.7-1 7.5 low Not Available [address], [address], 11/12/2024 10:34:57 11/12/20 24 11/12/2024 CBC HCT 40.2 % 40.1-5 1.0 Not Available [address], [address], 11/12/2024 10:34:57 11/12/20 24 11/12/2024 CBC MCV 94.8 fL 79.0-9 2.2 high Not Available [address], [address], 11/12/2024 10:34:57 11/12/20 24 11/12/2024 CBC MCH 30.4 pg 25.7-3 2.2 Not Available [address], [address], 11/12/2024 10:34:57 11/12/20 24 11/12/2024 CBC MCHC 32.1 g/dL 32.3-3 6.5 low Not Available [address], [address], 11/12/2024 10:34:57 11/12/20 24 11/12/2024 CBC plt 194 K/??L 163-33 7 Not Available [address], [address], 11/12/2024 10:34:57 11/12/20 24 11/12/2024 CBC MPV 10.4 fL 9.4-12 .4 Not Available [address], [address], 11/12/2024 10:34:57 11/12/20 24 11/12/2024 CBC neut% 51.8 % 34.0-6 7.9 Not Available [address], [address], 11/12/2024 10:34:57 11/12/20 24 11/12/2024 CBC neut# 2.15 1.78-5 .38 Not Available [address], [address], 11/12/2024 10:34:57 11/12/20 24 11/12/2024 CBC lymph % 28.0 % 21.8-5 3.1 Not Available [address], [address], 11/12/2024 10:34:57 11/12/20 24 11/12/2024 CBC lymph # 1.16 K/??L 1.32-3 .57 low Not Available [address], [address], 11/12/2024 10:34:57 11/12/20 24 11/12/2024 CBC mono% 11.3 % 5.3-12 .2 Not Available [address], [address], 11/12/2024 10:34:57 11/12/20 24 11/12/2024 CBC mono# 0.47 0.30-0 .82 Not Available [address], [address], 11/12/2024 10:34:57 11/12/20 24 11/12/2024 CBC eo% 6.5 % 0.8-7. 0 Not Available [address], [address], 11/12/2024 10:34:57 11/12/20 24 11/12/2024 CBC eo# 0.27 0.04-0 .54 Not Available [address], [address], 11/12/2024 10:34:57 11/12/20 24 11/12/2024 CBC baso% 1.9 % 0.2-1. 2 high Not Available [address], [address], 11/12/2024 10:34:57 11/12/20 24 11/12/2024 CBC baso# 0.08 0.00-0 .08 Not Available [address], [address], 11/12/2024 10:34:57 11/12/20 24 11/12/2024 CBC RDW-CV 12.5 % 11.6-1 4.4 Not Available [address], [address], 11/12/2024 10:34:57 11/12/20 24 11/12/2024 CBC Ig% 0.500 % 0.000- 1.500 Ig % >0.5 Indic ates possi ble Left Shift Not Available [address], [address], 11/12/2024 10:34:57 11/12/20 24 11/12/2024 CBC Ig# 0.020 0.000- 0.093 Not Available [address], [address], 11/12/2024 10:34:57 11/12/20 24 11/12/2024 CBC NRBC% 0.0 % 0.0-0. 2 Not Available [address], [address], 11/12/2024 10:34:57 11/12/20 24 11/12/2024 CBC NRBC# 0.000 0.000- 0.012 Not Available [address], [address], 11/12/2024 10:34:57 11/12/20 24 11/12/2024 HGB A1C hemoglobin A1C 6.7 % 4.8-6. 0 high Goal: <7% in Patie nts with Diabe ami An A1c betwe en 5.7-6 .4% is ident ified as pre-d iabet es and sugge sts risk for progr essio n to diabe ami Two a1c value s of 6.5% or highe r is consi stent with a diagn osis of diabe ami but may need furth er confi rmati on Not Available [address], [address], 11/12/2024 10:50:57 11/12/20 24 11/12/2024 HGB A1C estimated average glucose 145.6 mg/dL Not Available [address], [address], 11/12/2024 10:50:57 11/12/20 24 11/12/2024 COMP. METAB OLIC PANEL glucose 212 mg/dL 70-100 high Not Available [address], [address], 11/12/2024 16:23:50 11/12/20 24 11/12/2024 COMP. METAB OLIC PANEL BUN 18 mg/dL 7-18 Not Available [address], [address], 11/12/2024 16:23:50 11/12/20 24 11/12/2024 COMP. METAB OLIC PANEL creatinine 1.1 mg/dL 0.8-1. 3 Not Available [address], [address], 11/12/2024 16:23:50 11/12/20 24 11/12/2024 COMP. METAB OLIC PANEL B/C 16.4 ratio Not Available [address], [address], 11/12/2024 16:23:50 11/12/20 24 11/12/2024 COMP. METAB OLIC PANEL GFR >=60ML /MIN mL/mi n normal >=60m L/min - Vanita l or midly reduc ed <60mL /min- Decre ased kidne y funct ion <15mL /min - Kidne y failu re [facility] calcu lates estim ated Glome rular Filtr ation Rate (eGFR ) using the Chron ic Kidne y Disea se Epide miolo gy Colla borat ion (CKD- EPI) Equat ion (Elisa r et. al 2020) as recom martin d by the Natio nal Kidne y Found ation . eGFR is based on age, serum creat inine , and sex. CKD-E PI does not calcu late eGFR by race, does not apply to child brant (age <18 years ), and shoul d not be used in pregn flavio. Not Available [address], [address], 11/12/2024 16:23:50 11/12/20 24 11/12/2024 COMP. METAB OLIC PANEL sodium 146 mmol/ L 136-14 5 high Not Available [address], [address], 11/12/2024 16:23:50 11/12/20 24 11/12/2024 COMP. METAB OLIC PANEL potassium 5.0 mmol/ L 3.5-5. 1 Not Available [address], [address], 11/12/2024 16:23:50 11/12/20 24 11/12/2024 COMP. METAB OLIC PANEL chloride 107 mmol/ L 96-107 Not Available [address], [address], 11/12/2024 16:23:50 11/12/20 24 11/12/2024 COMP. METAB OLIC PANEL anion gap 10.0 5.0-15 .0 Not Available [address], [address], 11/12/2024 16:23:50 11/12/20 24 11/12/2024 COMP. METAB OLIC PANEL CO2 29 mmol/ L 21-32 Not Available [address], [address], 11/12/2024 16:23:50 11/12/20 24 11/12/2024 COMP. METAB OLIC PANEL calcium 9.5 mg/dL 8.5-10 .3 Not Available [address], [address], 11/12/2024 16:23:50 11/12/20 24 11/12/2024 COMP. METAB OLIC PANEL total protein 6.5 g/dL 6.4-8. 2 Not Available [address], [address], 11/12/2024 16:23:50 11/12/20 24 11/12/2024 COMP. METAB OLIC PANEL albumin 3.6 g/dL 3.4-5. 0 Not Available [address], [address], 11/12/2024 16:23:50 11/12/20 24 11/12/2024 COMP. METAB OLIC PANEL globulin 2.9 g/dL Not Available [address], [address], 11/12/2024 16:23:50 11/12/20 24 11/12/2024 COMP. METAB OLIC PANEL A/G 1.2 ratio 0.8-2. 0 Not Available [address], [address], 11/12/2024 16:23:50 11/12/20 24 11/12/2024 COMP. METAB OLIC PANEL total bilirubin 0.70 mg/dL 0.00-1 .00 Not Available [address], [address], 11/12/2024 16:23:50 11/12/20 24 11/12/2024 COMP. METAB OLIC PANEL AST 29 U/L 0-37 Not Available [address], [address], 11/12/2024 16:23:50 11/12/20 24 11/12/2024 COMP. METAB OLIC PANEL ALT 48 U/L 6-63 Not Available [address], [address], 11/12/2024 16:23:50 11/12/20 24 11/12/2024 COMP. METAB OLIC PANEL alk. phos. 84 U/L 50-136 Not Available [address], [address], 11/12/2024 16:23:50 11/12/20 24 11/13/2024 MICRO ALBUM IN/CR EATIN INE RATIO PANEL , URINE microalbumin 100.5 mg/L 1.3-20 .0 high VERD= Verif ied by Dilut ion. Not Available [address], [address], 11/13/2024 09:15:55 11/12/20 24 11/13/2024 MICRO ALBUM IN/CR EATIN INE RATIO PANEL , URINE creatinine urine 122.1 mg/dL 30.0-1 25.0 Not Available [address], [address], 11/13/2024 09:15:55 11/12/20 24 11/13/2024 MICRO ALBUM IN/CR EATIN INE RATIO PANEL , URINE microalb/cre at ratio 82.3 mg/g_ creat 0.0-29 .0 high Not Available [address], [address], 11/13/2024 09:15:55 Result Notes None recorded. Problems Name Problem SNOMED Code Status Onset Date Resolution Date Notes Provider Name and Address Organization Details Recorded Time Atrial fibrillati on 48615937 Active 2014 Not Available [facility] 4 01:33:21 Diabetes mellitus 61747637 Active 2015 Not Available [facility] 4 01:33:22 Essential hypertensi on 76045849 Active 2015 Not Available [facility] 4 01:33:21 Hyperlipid emia 42957720 Active 2015 Not Available [facility] 4 01:33:21 Osteoarthr itis 350980114 Active 2015 neck, knee, hands Not Available [facility] 4 01:33:21 Hypothyroi dism 30862745 Active 2015 Not Available [facility] 4 01:33:21 Seasonal allergy 371141620 Active 2016 Not Available [facility] 4 01:33:21 Elbow joint pain 884195624 Completed 201610/01/2019 Kathy May MD [address] [place] [address], [address] , [facility] 9 14:21:17 Benign prostatic hyperplasi a with outflow obstructio n 440940530 Active 2017 Not Available [facility] 4 01:33:21 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 639134393 Active 2018 Not Available [facility] 4 01:33:21 Degenerati on of lumbar interverte bral disc 59271774 Active 2019 Not Available [facility] 4 01:33:21 Obstructiv e sleep apnea syndrome 76483652 Active 05/04/ 2021 Not Available [facility] 4 01:33:22 Polymyalgi a rheumatica 38419555 Completed 202211/14/2023 Kathy May MD [address] [place] [address], [address] , [facility] 3 10:50:43 Rheumatoid arthritis 63408434 Active 2022 Not Available [facility] 4 01:33:21 Spinal stenosis in cervical region 56039516 Active 2023 Kathy May MD [address] [place] [address], [address] , [facility] 5 11:06:55 Diabetic peripheral neuropathy 658179024 Active 2024 Kathy May MD [address] [place] [address], [address] , [facility] 5 11:04:54 Notes:Some problems listed i n Documents: #[id number], #[id number], #[id number], #[id number] could not be added to this patient's chart. Please review these documents and add these problems to the patient's chart manually as needed. Problem Notes None recorded. Procedures Surgical History Date Name Laterality Status Provider Name and Address Organization Details Recorded Time 01/05/20 25 19222: Neuromuscular Re-Education completed Nagi Whitman, PT [address] [place], [address], [facility] 01/05/2025 12:12:05 01/05/20 Treatment and Advice completed Nagi Whitman, PT [address] [place], [address], [facility] 01/05/2025 12:06:35 12/22/19 25 05392: Neuromuscular Re-Education completed Nagi Whitman, PT [address] [place], [address], [facility] 12/22/2024 13:34:51 12/22/19 25 Treatment and Advice completed Nagi Whitman, PT [address] [place], [address], [facility] 12/22/2024 13:18:54 12/08/19 22001: Therapeutic Exercise completed Nagi Whitman, PT [address] [place], [address], [facility] 12/08/2024 10:31:52 12/08/19 Treatment and Advice completed Nagi Whitman, PT [address] [place], [address], [facility] 12/08/2024 10:28:48 11/05/20 79116: Therapeutic Exercise completed Nagi Whitman, PT [address] [place], [address], [facility] 11/05/2024 14:35:21 11/05/20 Treatment and Advice completed Nagi Whitman, PT [address] [place], [address], [facility] 11/05/2024 14:34:16 10/15/20 16192: Therapeutic Exercise completed Nagi Whitman, PT [address] [place], [address], [facility] 10/15/2024 18:20:55 10/15/20 Treatment and Advice completed Nagi Whitman, PT [address] [place], [address], [facility] 10/15/2024 15:04:06 09/29/20 32353: Therapeutic Exercise completed Nagi Whitman, PT [address] [place], [address], [facility] 09/29/2024 10:37:55 09/29/20 Treatment and Advice completed Nagi Whitman, PT [address] [place], [address], [facility] 09/29/2024 10:02:22 09/15/20 09289: Therapeutic Exercise completed Nagi Whitman, PT [address] [place], [address], [facility] 09/15/2024 10:35:38 09/15/20 24 Treatment and Advice completed Nagi Whitman, PT [address] [place], [address], [facility] 09/15/2024 10:29:49 09/08/20 69130: Therapeutic Exercise completed Nagi Whitman, PT [address] [place], [address], [facility] 09/08/2024 11:02:59 09/08/20 Treatment and Advice completed Nagi Whitman, PT [address] [place], [address], [facility] 09/08/2024 10:57:27 09/03/20 61698: Therapeutic Exercise completed Nagi Whitman, PT [address] [place], [address], [facility] 09/03/2024 14:23:47 09/03/20 Treatment and Advice completed Nagi Whitman, PT [address] [place], [address], [facility] 09/03/2024 12:12:37 09/01/20 98682: Therapeutic Exercise completed Nagi Whitman, PT [address] [place], [address], [facility] 09/01/2024 10:29:53 09/01/20 Treatment and Advice completed Nagi Whitman, PT [address] [place], [address], [facility] 09/01/2024 10:00:08 08/27/20 68396: Therapeutic Exercise completed Nagi Whitman, PT [address] [place], [address], [facility] 08/27/2024 12:04:26 08/27/20 Treatment and Advice completed Nagi Whitman, PT [address] [place], [address], [facility] 08/27/2024 12:00:40 08/25/20 50399: Therapeutic Exercise completed Nagi Whitman, PT [address] [place], [address], [facility] 08/27/2024 10:53:41 08/25/20 Treatment and Advice completed Nagi Whitman, PT [address] [place], [address], [facility] 08/25/2024 11:11:05 08/18/20 Physical Activity Counselling completed Nagi Whitman, PT [address] [place], [address], [facility] 08/18/2024 10:10:16 08/18/20 87303: PT Eval Low Complexity completed Nagi Whitman, PT [address] [place], [address], [facility] 08/18/2024 10:10:16 08/18/20 Treatment and Advice completed Nagi Whitman, PT [address] [place], [address], [facility] 08/18/2024 10:42:21 07/25/20 17 Gina - Colonoscopy completed Johnna Fuentes MD [address] [place] [address], [address], [facility] 07/25/2017 10:13:24 05/08/20 17 Knee (Right) Injection completed ALVINA Arambula [address] [place] [address], [address], [facility] 05/08/2017 10:37:00 11/05/20 16 96238: Manual Therapy completed Murali Smith, PT, DPT, [address], [address], [facility] 11/05/2016 10:04:55 10/22/20 16 38966: Manual Therapy completed Murali Smith, PT, DPT, [address], [address], [facility] 10/22/2016 10:55:58 10/11/20 16 45936: Therapeutic Exercise completed Murali Smith, PT, DPT, [address], [address], [facility] 10/11/2016 09:31:04 10/11/20 16 08129: Manual Therapy completed Murali Smith, PT, DPT, [address], [address], [facility] 10/11/2016 09:31:09 10/01/20 16 27893: PT Evaluation completed Murali Smith, PT, DPT, [address], [address], [facility] 10/01/2016 13:41:44 09/25/20 16 Medicare Wellness Visit completed Kathy May MD [address] [place] [address], [address], [facility] 09/25/2016 13:54:23 Imaging Results None recorded. Procedure [...] e 137 mcg (0.1 %) nasal spray Ransom 2 sprays twice a day by intranas [...] Not Available Not Avai lable Fluzone High-Dose 1849-0301 (PF) 180 mcg/0.5 mL intramusc ular syringe TO BE ADMINIST ERED BY PHARMACI ST FOR IMMUNIZA TION 04/02 completed Not Available Not Available Not Available Vitals Date Recorded Body height Body mass index (BMI) Body weight Oxygen saturation Oxygen saturation in Arterial blood by Pulse oximetry Heart rate Systolic blood pressure Diastolic blood pressure Provider Name and Address Organization Details Last Updated DateTime 5 180.85 cm 23.9 kg/m2 00153.9 9 g 98 % 98 % 62 /min 162 mm[Hg] 70 mm[Hg] Kathy Tinajero MA [facility] 5 10:45:11 Date Recorded Body height Heart rate Systolic blood pressure Diastolic blood pressure Provider Name and Address Organization Details Last Updated DateTime 01/01/2025 180.85 cm 58 /min 142 mm[Hg] 74 mm[Hg] Wilma Darby LPN [facility] 01/01/2025 10:43:24 Social History Question Answer Notes LastModified by Organization Details LastModified Time Tobacco Smoking Status Former Smoker in 20's only Tete palomino [facility] 04/28/2016 09:34:03 Do You Have An Advance [...] Or The Highest Degree You Have Received? CA49813-3 Information not available 11/13/2022 What Is Your [...] Anxious, Or Unable To Sleep At Night)? NN7738-8 Information not available 11/13/2022 Do You Use [...] high-dose, trivalent, PF 7 completed Not Available [facility] 12/12/2019 02:21:40 Tdap 5 completed Not Available [facility] 12/06/2023 01:33:22 zoster live 4 completed Not Available [facility] 12/06/2023 01:33:22 pneumococcal, unspecified formulation 4 completed Not Available [facility] 12/06/2023 01:33:22 Pneumococcal conjugate PCV 13 5 completed Not Available [facility] 12/06/2023 01:33:22 influenza, unspecified formulation 4 completed Not Available [facility] 12/06/2023 01:33:22 Influenza, high-dose, trivalent, PF 6 completed Not Available [facility] 12/06/2023 01:33:22 pneumococcal polysaccharide PPV23 4 completed Not Available [facility] 12/06/2023 01:33:22 Influenza, split virus, quadrivalent, preservative 8 completed Not Available [facility] 12/06/2023 01:33:22 Pneumococcal conjugate PCV 13 8 completed Not Available [facility] 12/06/2023 01:33:22 Influenza, high-dose, quadrivalent, PF 0 completed Wilma Darby LPN null, [facility] 09/08/2020 14:04:25 Influenza, split virus, quadrivalent, preservative 9 completed Not Available [facility] 12/06/2023 01:33:22 Influenza, split virus, quadrivalent, preservative 9 completed Not Available [facility] 12/06/2023 01:33:22 Influenza, high-dose, quadrivalent, PF 1 completed Melissa Carney RN BSN null, [facility] 09/06/2021 14:03:17 COVID-19, mRNA, LNP-S, PF, 30 mcg/0.3 mL dose 1 completed Not Available [facility] 12/06/2023 01:33:22 COVID-19, mRNA, LNP-S, PF, 30 mcg/0.3 mL dose 1 completed Not Available [facility] 12/06/2023 01:33:22 COVID-19, mRNA, LNP-S, PF, 30 mcg/0.3 mL dose 1 completed Not Available [facility] 12/06/2023 01:33:22 COVID-19, mRNA, LNP-S, PF, 30 mcg/0.3 mL dose 2 completed Not Available [facility] 12/06/2023 01:33:22 COVID-19, mRNA, LNP-S, PF, 30 mcg/0.3 mL dose 2 completed Not Available [facility] 12/06/2023 01:33:22 Influenza, split virus, quadrivalent, preservative 2 completed Not Available [facility] 12/06/2023 01:33:22 SARS-COV-2 (COVID-19) vaccine, UNSPECIFIED 3 completed Not Available [facility] 12/06/2023 01:33:22 influenza, unspecified formulation 3 completed Not Available [facility] 12/06/2023 01:33:22 zoster, unspecified formulation 3 completed Not Available [facility] 12/06/2023 01:33:22 Past Encounters Encounter ID Performer Location Encounter Start Date Encounter Closed Date Diagnosis/Indication Diagnosis SNOMED-CT Code Diagnosis ICD10 Code Diagnosis Note [id number] Kathy May MD , [facility], [address]ICE [address] [place] [address] 04/28/2016 09:19:26 04/28/2016 10:25:43 Cough 57476294 R05 pt presents with URI sx and now ongoing cough and PND lungs sounds ronchorous and diminished but improved after updraft with duoneb no evidence of bacterial infection, sinus/ear/ pna tx below has apt in two weeks sooner f/u if not improving instr to avoid constipati on with use of codiene [id number] Kathy May MD , [facility], [address] [place] [address] 05/09/2016 14:40:00 05/09/2016 16:16:30 Screening for malignant neoplasm of colon 099905732 Z12.11 Hyperlipidemia 12128732 E78.5 pt reports good conrol, on statin, will get lipid panel Essential hypertension 27799510 I10 good control; labs orderedinc reasing metoprolol for tachycardi a Diabetes mellitus 730338 09 E11.9 reprots good controldie t/meds/exe rciselabs and f/u Atrial fibrillation 4943 6004 I48.91 tachycardi c on exam today but regularpt reports this comes and goes and usually asxhas seen cards in past, is on metoprolol low dosehe has appt with Dr Bravo this monthagree able to increasing metoprolol agreeable to following his pulse and calling if continues elevate or if he has sxclose f/u one month, and sooner as instr. 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 14074354 D53.1 pt takes B12, by hx was deficient/ anemicwill screen and f/u needs for ongoing supplement ation Hypothyroidism 99679384 E03.9 pt reports that often gets off kilter and needs dose adjustment [id number] Kathy May MD , [facility], [address] [place] [address] 05/15/2016 15:28:45 05/15/2016 16:52:11 Atrial flutter 2619910 I48.92 pt with more bouts of atrial fibrillati on and tachycardi a in past weeksnow on 100 mg metoprolol daily and in office today 140 HR a flutter on EKGno sx other than fatiguebut given non response to med increases and cards apt next week at this time to ED for urgent txreport given to ED nurselabs/ EKG sent with ptkeep Dr Bravo apt next week [id number] Kathy May MD , [facility], [address] [place] [address] 06/12/2016 10:43:50 06/12/2016 11:20:05 Hypothyroidism 22015991 E03.9 refill meds, stableTSH 3.66 Hyperlipidemia 58070272 E78.5 stableLDL 97, HDL 41 Essential hypertension 14353609 I10 at goalnormal renal function Atrial fibrillation 4943 6004 I48.91 Lawrence this afternoonE F 35% recent imagingnor mal holter other than afib/flutt ersx with fatigue and edemawill f/u Lawrence's notes and planpt aware Diabetes mellitus 121015 09 E11.9 A1C was highpt has been focussed on heartplan to get back to checking sugars at homewatche s diet, takes medswillin g to meet with diabetes ed in future Screening for malignant neoplasm of colon 017096442 Z12.11 will consider colonoscop y after a fib tx resolved Allergic rhinitis 720928 04 J30.9 discussed neti potdust mite ppxthen consider OTC flonase [id number] Kathy May MD , [facility], [address] [place] [address] 09/25/2016 13:26:11 09/25/2016 14:20:20 Screening for disorder 332937918 Z11.59 Adult heal th examination 176011425 Z00.00 see Risk Assessment and Lifestyle Change Counseling section above Counseling 339541394 Z71 .9 Hypothyroidism 29279032 E03.9 stableannu al TSH Hyperlipidemia 93174623 E78.5 stablecont inue statin Essential hypertension 09637874 I10 not at goal here or hometc with Dr Lane ed add amlodipine 2.5 mg daily Atrial fibrillation [address] Linn moreno on decreasing amiodarone advised ongoing ETOH less than one a dayf/u Lawrence in October, echo Diabetes mellitus 457745 09 E11.9 at goalhas made improvemen ts with diet, metformin, exerciseco ntinue A1C biannualha d eye exam December but need local ophthorefe rral madesome evidence neuropathy on examstable renal function Osteoarthritis 204068682 M19.90 neck, hands, armshas had relief with PT for neck painwould like referral [id number] Murali Smith, PT, DPT, CSCS Physical Therapy, [facility] [address] [place] [address] 10/01/2016 12:53:39 10/01/2016 13:52:46 Neck pain 20233185 M54.2 Pt is a {{71# }} y.o. {{male* fe male}} who reports to PT with c/o {{L greater than R sided neck pain due to arthritis# }} Pt presents with mild cervicotho racic scoliosis with the concavity to the L. This, when combined with hypomobili ty of L sided cervical segments and decreased strength of postural muscles can lead to undue stress on cervical segments causing pain. Skilled physical therapy is needed to safely and progressiv anna address impairment s and functional limitation s as outlined above. Treatment Plan: Patient to return {{1-2# }} times per week for {{4-6# }} weeks. We expect significan t improvemen t in pain, impairment and function within this time frame. Treatment includes: further assessment , therapeuti c exercises, manual therapy, HEP prescripti on, patient education, traction, and modalities all as needed. Short term goals: Pain: Decrease to 4/10 Strength: Able to contract and isolate DNF Joint Mobility: Increase upper cervical downglidin g on the L Other: Pt will report initiation of pain later on in the day (~2 pm) with no more than 4/10 c/o pain Pt will be able to walk the dog 2-3 miles with no more than 4/10 c/o pain oil heaterman goals: Pain: Decrease to 2/10 Strength: Strong DNF contractio n with functional activities ROM: Maintain full cervical AROM Joint Mobility: Increase upper cervical downglidin g on the L to be equal bilaterall y Other: Pt will be able to complete all ADLs/IADLs and recreation al activities with no more than 2/10 c/o pain [id number] Murali Smith, PT, DPT, [facility] Physical Therapy, [address] [address] 10/11/2016 09:23:33 10/11/2016 13:00:06 Neck pain 83084869 M54.2 Pt still with moderate stiffness/ hypomobili ty of L sided cervical segments in downglidin g, improved with manual techniques . At end of treatment pt noted feeling better. [id number] Murali Smith, PT, DPT, [facility] Physical Therapy, [address] [address] 10/22/2016 09:29:35 10/22/2016 12:43:22 Neck pain 41922441 M54.2 Pt with improving joint mobility on the L however still considerab le difference between R segments. [id number] Murali Smith, PT, DPT, CSCS Physical Therapy, [facility] [address] [place] [address] 11/05/2016 09:29:49 11/05/2016 11:00:28 Neck pain 45531343 M54.2 Pt no longer with soft tissue nor joint restrictio ns. Pt demonstrat es HEP correctly and pain-free. Pt understood concepts of safety in a way to manage and potential future pain. Pt is aware of how to contact PT again if needed. [id number] Kathy May MD , [facility], [address] [place] [address] 04/02/2017 10:39:25 04/02/2017 11:16:48 Hypothyroidism 80852052 E03.9 stableannu al TSH Seasonal allergy 0712460 04 J30.2 has had intermitte nt sxusing fluticason eavoids other meds given cardiac issues previously hasn't needed proair Hyperlipidemia 02389631 E78.5 stablecont inue statin Essential hypertension 30966229 I10 not at goalgenera lly has higher levelsstat aurora gupta was okay with thisno med changes todaywill call Dr Bravo and marsha tate also recommend daily ASA Diabetes mellitus 736065 09 E11.9 stop pioglitazo neat goalhome checks lower rangef/u PSA this Atrial fibrillation 4943 6004 I48.91 has been stable, no sxmeds reduced with cardiology Prostate s pecific antigen above reference range 886366209 R97.20 up from 2.97 in 2015no new sxpt prefers monitoring now will repeat 6 monthsagre e urology referral if persistant [id number] Kathy May MD , [facility], [address] [place] [address] 05/02/2017 16:40:21 05/02/2017 17:34:57 Elbow joint pain 690797383 M25.529 enc to try exercises givenenc to try alternate computer station and/or use gel pad for armcould do PTf/u if sx worseningr est and ice PRN Osteoarthritis 271045774 M19.90 neck, hands, armsschedu le for right knee cortisone injection, had one over a year ago with relief, hopes to buy some more time with another injectioni nstr to do PT exercises daily?if could be developing a psoriatic component to arthritis though generally consistent pattern with use and age Essential hypertension 41774471 I10 not at goal but lower on recheckpt follows with Dr Bravo; spoke with him this weekDr Lawrence's goals for patient to stay in 140-150 systolic okaypressu res at [facility] office have been betterhas f/u Dr Bravo in falltairisnote meds, no SE no changes in POC today taught 4-7-8 breathing today [id number] ALVINA Arambula , [facility], [address] [place] [address] 05/08/2017 09:38:25 05/08/2017 10:32:43 Screening for malignant neoplasm of colon 656610166 Z12.11 Referral for a DIRECT booked colonoscop y. This patient is a healthy ASA Class 1 or 2 patient (only mild systemic disease), or a STABLE, well controlled insulin dependent diabetic. They do not have serious cardiac disease ie NE/angiopl asty within 1 year, symptomati c CHF; renal failure with CKD 4 or 5; take Coumadin, Plavix, Aggrenox, etc. Osteoarthr itis of knee 443380715 M17.9 Right, Cortisone injection given into R knee, tolerated procedure well, post injection instructio ns given. F/U PRN [id number] Kathy May MD , [facility], [address] [place] [address] 07/23/2017 15:35:27 07/23/2017 16:18:48 Active or passive immunization 673333035 Z23 Elbow joint pain 0088626 01 M25.529 ongoing issue forearm and elbowsome associatio n with golfsome on leftnow willing to start PTprefers E'ton Essential hypertension 43644032 I10 at goalno changes today Diabetes mellitus 482100 09 E11.9 as he is having se with metformin we will redcue and change to long actingone sx low overall great controlclo se f/u at [facility] Atrial fibrillation 4943 6004 I48.91 has been stable, no sx Thoracic back pain 27419 8004 M54.6 new BL back paintight on examlimite d forward flexionadv ised stretching , back hygienef/u at [facility] [id number] Johnna Fuentes MD [facility], [facility] [address] [place] [address] 07/25/2017 08:15:48 07/25/2017 11:46:57 [id number] Minda Pendleton Ms, PT Physical Therapy, [address] [address] 08/08/2017 10:25:05 08/08/2017 13:19:32 Pain in elbow 01845861 M25.072 [id number] Minda Pendleton Ms, PT Physical Therapy, [address] [address] 08/12/2017 09:01:44 08/12/2017 12:21:00 Pain in elbow 14797915 M25.810 [id number] Minda Pendleton Ms, PT Physical Therapy, [address] [address] 08/19/2017 08:58:20 08/20/2017 07:19:13 Pain in elbow 46584328 M25.673 [id number] Minda Pendleton Ms, PT Physical Therapy, [address] [address] 08/26/2017 09:24:52 08/26/2017 13:46:46 Pain in elbow 35106213 M25.234 [id number] Minda Pendleton Ms, PT Physical Therapy, [address] [address] 09/03/2017 09:28:05 09/03/2017 11:12:39 Pain in elbow 04358318 M25.812 [id number] Minda Pendleton Ms, PT Physical Therapy, [address] [address] 09/12/2017 11:01:37 09/12/2017 13:46:46 Pain in elbow 63373638 M25.119 [id number] Minda Pendleton Ms, PT Physical Therapy, [address] [address] 09/20/2017 09:10:23 09/20/2017 11:46:22 Pain in elbow 80032883 M25.572 [id number] Kathy May MD , [facility], [address] [place] [address] 09/26/2017 10:07:57 09/26/2017 10:46:45 Adult health examination 362652625 Z00.00 see Risk Assessment and Lifestyle Change Counseling section above Counseling 101286023 Z71 .9 Screening for disorder 564549516 Z11.59 Atrial fibrillation 4943 6004 I48.91 has been stable, no sxseeing Dr Bravo who is retiring, he will see another provider in that officerece nt visitno med changesref ill metoprolol Hypothyroidism 16601457 E03.9 stableannu al TSH Osteoarthritis 086039138 M19.90 would like repeat injection right kneeaware this is not an ongoing sustainabl e planhe will continue exercisesh as done PT will look into ortho options, synvysc in spring if needed Hyperlipidemia 92763615 E78.5 stablecont inue statin Diabetes mellitus 336939 09 E11.9 at goalwould like to be able to decrease amfxE9i 6.5tolerat ing current dosessome microalbun iuriasome peripheral loss sensation BL feet laterally onlychecki ng blood sugars most days in AMadvised to check other times of day, can create a schedule for himself as he likes routineno med changes todayf/u 6 mo Essential hypertension 64980474 I10 at goal on recheckrev iews with Dr Bravo cardiology as wellmeds stayed the same after last visitcheck s at home no changes today [id number] Minda Pendleton Ms, PT Physical Therapy, [address] [address] 09/30/2017 09:24:27 09/30/2017 10:30:38 Pain in elbow 99533271 M25.685 [id number] Minda Pendleton Ms, PT Physical Therapy, [facility] [address] [place] [address] 10/01/2017 15:36:19 10/01/2017 15:36:34 [id number] ALVINA Arambula, [facility], [address] [place] [address] 10/08/2017 09:26:31 10/08/2017 10:13:03 Osteoarthritis of knee 861868416 M17.9 Right, Cortisone injection given into R knee, tolerated procedure well, post injection instructio ns given. F/U PRN [id number] Minda Pendleton Ms, PT Physical Therapy, [address] [address] 10/09/2017 11:43:01 10/09/2017 12:20:35 Pain in elbow 63334551 M25.967 [id number] Kathy May MD FP, [facility], [address] [place] [address] 04/02/2018 13:59:10 04/02/2018 14:40:40 Osteoarthritis 996305470 M19.90 pt has worse sx this yeartrigge red with golfgoing to see for cortisone injectionw ants to discuss other penitentiary tx options with orthorefer raghavendra ta to iceokay periodic naproxen, not daily(pt doesn't like to take and tries to limit) Atrial fibrillation [address] Vázquez rhad ablation and continues to have intermitte nt sxhe has f/u with him in a few weeks Hyperlipidemia 29577336 E78.5 not on therapeuti c dosing of statinagre eable to increasef/ u labs in the fall Essential hypertension 95604838 I10 at goal on recheckrev iews with Dr Gurpreet charlton cardiology as welllisino pril dose reviewed at 20 mg Diabetes mellitus 176431 09 E11.9 at goal A1C 7meds are decreased and he feel much better with less GI SEhad eye examblood sugars at home goodDC pioglitazo ne as he is not taking and control is goodroutin e f/u at [facility] [id number] ALVINA Arambula, [facility], [address] [place] [address] 04/09/2018 07:26:36 04/09/2018 07:55:44 Osteoarthritis 704449211 M19.90 R knee Pain in right knee 32455 29040 15980 M25.561 Cortisone injection given into R knee, tolerated procedure well, post injection instructio ns given [id number] Kathy May MD , [facility], [address] [place] [address] 05/15/2018 10:28:42 05/15/2018 11:04:06 Essential hypertension 34912707 I10 not at goal today goal < 140/90will fu one month at visit Diabetes mellitus 074963 09 E11.9 at goal A1C 7doing wellchecki ng sugars and in good rangerouti ne f/u Osteoarthritis 333784964 M19.90 Dr Null g cortisone inj with effectgoin g to try a bracefunct ional nowconside r Synvysc in futuredefe r TKR Hyperlipidemia 57173296 E78.5 LDL not at goal for diabetesst atin was increasedf /u labs 5 months Nocturia 176890994 R35.1 see notes below Benign pro static hyperplasia with outflow obstruction 973383655 N40.1 sx BPH [facility] enlarged and smooth and symetrical not tenderwe will get a UAstart terazosin, discussed SE f/u one month [id number] Kathy May MD , [facility], [address] [place] [address] 06/13/2018 16:31:38 06/13/2018 16:55:46 Essential hypertension 50843790 I10 not at goal today goal < 140/90lowe r today than usualcould be due to terazosinn ot sx Osteoarthritis 237056959 M19.90 right kneeconsid ering replacemen tongoing pain after his knee injection Nocturia 375879693 R35.1 see notes below Benign pro static hyperplasia with outflow obstruction 955758874 N40.1 sx are much lessdoing very well with terazosinn o SE continue script [id number] Kathy May MD , [facility], [address] [place] [address] 09/30/2018 14:00:06 09/30/2018 14:56:20 Adult health examination 193643905 Z00.00 see Risk Assessment and Lifestyle Change Counseling section above Counseling 017046417 Z71 .9 Depression screening 171 820022 Z13.89 depression screening tool administer ed, entered into emr, scored and discussed, time greater than 7.5 minutes Benign ess ential hypertension 7446705 I10 Blood pressure at goallabs reviewedno changes Osteoarthritis 393673396 M19.90 right kneehas replacemen t scheduled for naging to be active with pain now, but walking lessNaprox en PRN, avoiding twice daily dosing and trying to to take some days off Hypothyroidism 24330603 E03.9 stableannu al TSH Mixed hyperlipidemia 267 103633 E78.2 near goalcontin ue statindiet education today Hyperlipidemia 73409707 E78.5 LDL not at goal for diabetesst atin was increasedf /u labs 5 months Essential hypertension 87678776 I10 not at goal today goal < 140/90lowe r today than usualcould be due to terazosinn ot sx Diabetes mellitus 971618 09 E11.9 slightly above goal Atrial fibrillation [address] Vázquez rhad ablation and continues to have intermitte nt sx- rare now Benign pro static hyperplasia with outflow obstruction 541187470 N40.1 ongoing sxbetter but some nights worse than othersstil l on low dose of terazosinw ill increase to five mg at HS Overweight 725902296 E66 .3 noted small gainsome LE edema today, dependentw ill followgoal working on DM mgmthealth y diet reviewed [id number] Samra Farooq NP , [facility], [address] [place] [address] 11/27/2018 10:19:36 11/27/2018 11:09:14 Preoperative cardiovascular examination 917471730 Z01.810 cleared for TKR. Osteoarthr itis of knee 144098254 M17.11 per ortho Paroxysmal atrial fibrillation 635498331 I48.0 in a fib today - paroxysmal -=should not interfere with surgery unless rapid a fib. Will need post op anticoagul ation per your protocol. We have cardiac clearance from Dr Rodríguez . Diabetes mellitus 276062 09 E11.9 stable [id number] Kathy May MD , [facility], [address] [place] [address] 12/30/2018 14:27:23 12/31/2018 13:36:01 Irregular heart rate 385482748 R00.8 EKG done & reviewed by HS. Pt. sent to [facility] ED. [id number] Kathy May MD FP, [facility], [address] [place] [address] 01/07/2019 12:03:49 01/07/2019 12:42:06 Diabetes mellitus 25325150 E11.9 were high in hospitalba ck down into 110-120 range Atrial fibrillation [address] Vázquez rand Dr Will jacobo to schedule ablationno t sxirregula r/rate controlled today Constipation 30341657 K5 9.00 with oxycodone use and decreased mobility after knee replacemen tboosting fiber and fluidsusin g MOM and sennaadvis ed to keep regular, don't get bound up, goal daily mvmt w/o strainingm edication to achieve goalsadd colace and /or miralax Essential hypertension 40449818 I10 at goallowerr ecent hypotensio n with afibnot sx History of right total knee replacement 5462545169 377729 Z96.651 progressin g as expectedus ing oxycodone and tylenol for painfeels he still has painnot bad at nightdoesn 't like SE of oxy (constipat ion and tired and a bit forgetful/ confused)a dvised to try 1/2 dose oxy, limit as abletake tylenol three times a dayf/u with ortho as directed [id number] Kathy May MD , [facility], [address] [place] [address] 02/05/2019 14:59:14 02/06/2019 11:46:37 Essential hypertension 24183878 I10 in rangecan be higher at homefollow ed also by cardiology Atrial fibrillation 4943 6004 I48.91 and fluttersch eduling ablation for sxchecking pulsescurr ently on amiodarone 200 mg daily Diabetes mellitus 928730 09 E11.9 A1C near goalweight down with poor appetite after surgerywou ld like to keep current meds/planw atching dietagrees doesn't need to gain weighthopi ng to resume exercise routine soonokay to go to gym, for knee rehab, keep heart rate under 100 at this time until further cardiology clearancen o sx [id number] in 3 monthsf/u May 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 255732657 E11.[address] Pollock annually for monitoring have notes from 01/2018 History of right total knee replacement 0355424422 856189 Z96.651 doing wellat goals per Dr Godoy ill some swellinggr adual return to activitya few more PT sessions left Bilateral hearing loss 09757839 H91.93 pt is not concernedw tamir feels hearing is offonly mild loss higher frequency hereagree to defer audiology eval at this point [id number] Kathy May MD , [facility], [address] [place] [address] 03/31/2019 10:10:26 03/31/2019 10:33:36 Essential hypertension 74376738 I10 in rangeat goal< 130/80 Diabetes mellitus 723424 09 E11.9 A1C near goal7.1 stable meds/diete xercise increasing tglmbU2B and f/u at [facility] Hyperlipidemia 19020617 E78.5 ongoing monitoring f/u [facility] Atrial fibrillation 4943 6004 I48.91 improved post ablationf/ u April with cardiology , likely med changes then Lesion of skin of face 1247224593 06 L98.9 severy red raised lesionssig sun exposure, golfsruddy complexion referral derm eval and tx History of right total knee replacement 1533745950 801631 Z96.651 doing wellat goals per Dr Tony ashby ongoingusi ng some compressio nstill doing PTworking up to playing golfnot using pain medication s [id number] Kathy May MD , [facility], [address] [place] [address] 10/01/2019 13:53:00 10/01/2019 14:34:48 Adult health examination 421317796 Z00.00 see Risk Assessment and Lifestyle Change Counseling section above Counseling 338022111 Z71 .9 Depression screening 171 662182 Z13.89 depression screening tool administer ed, entered into emr, scored and discussed, time greater than 7.5 minutes Hypothyroidism 03210919 E03.9 stableannu al TSH Benign pro static hyperplasia with outflow obstruction 399187951 N40.1 ongoing sxbetter with terazosin Diabetes mellitus 502646 09 E11.9 A1C near goal73 stable meds/dietc ontinue curent plan Essential hypertension 99315171 I10 in rangeat goal< 130/80 Hyperlipidemia 10632367 E78.5 ongoing monitoring close to goalon statinwill increase to 80 mg Atrial fibrillation 4943 6004 I48.91 having about weekly runs with sx afterwards in afib todayabimaeli josh with cardiology rate controlled meeting about future ablation Insomnia 479805651 G47.0 0 newer issue for irina g with fit bitnotes 7 hours most nights, 7.5but often in bed longerhard er to fall asleep at nightdiscu ssed possible changescon commercial lines account executive less coffee in morningcon commercial lines account executive no tv or screen two hours before bedget up if not falling asleep, quiet activitygo to bed and get up 8 hours later, no matter whatconsid er melatoninf /u as needed [id number] , [facility], [address] [place] [address] 03/15/2020 14:32:58 03/16/2020 10:16:42 Pain in right hip joint 3272384982 00075 M25.551 new right hip pain, seems localized at bursahas been communicat ing w Dr Roblero who thought bursitisso me radiation down legwill do PT appt AJRED and then can f/u if injection neededgoal to resume daily walksusing only Tylenol for pain, no nsaids give heart disease/an ticoag 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 417597629 E11.3299 annual visit w lora todd ng given pandemicf/ u one month VV DM mgmt Essential hypertension 14700847 I10 in rangeat goal< 130/80on home checksnot sxno changes Atrial fibrillation 4943 6004 I48.91 less frequent sx now that MICHELLE txplans still for ablation after pandemic restrictio nsDr Zan following Obstructiv e sleep apnea syndrome 75360005 G47.33 dx and txdoing wellmanagi ng CPAPnotes less cardiac sx [id number] Nagi Whitman , PT Physical Therapy, [facility] [address] [place] [address] 03/16/2020 09:55:13 03/16/2020 14:36:54 Pain in right hip joint 2035203766 94117 M25.551 74 year old {{female m robert*}} with findings most consistent with {{acute* c hronic rec urrent}} Right hip pain with movement coordinati on impairment . Patient has significan t functional limitation in their {{activiti es of daily living* ac tivities of daily living and work capacity a ctivities of daily living and exercise capacity a ctivities of daily living and recreation }}. Skilled physical therapy is needed to safely and progressiv anna address impairment s and functional limitation s as outlined below. Patient Goals: Be able to walk, climb stairs and transfer without limitation s due to right hip pain for ADLs and exercise. Clinical Goals: 1. Demonstrat e symmetric pain free active, passive and resisted motions of the {{neck and upper extremitie s shoulder elbow, forearm and wrist trun k and lower extremitie s hip* kne e ankle}}. 2. Demonstrat e sufficient muscular endurance to meet functional demands. Treatment Plan: Patient to return for {{4 6 8* 1 0}} visits over {{4 8 12*} } weeks. We expect significan t change in pain, impairment and function in this time frame. Treatment to Include: Therapeuti c exercise and manual therapy [id number] Nagi Whitman , PT Physical Therapy, [address] [address] 03/23/2020 10:57:39 03/24/2020 08:05:38 Pain in right hip joint 3925602814 75926 M25.551 74 year old {{female m robert*}} with findings most consistent with {{acute* c hronic rec urrent}} Right hip pain with movement coordinati on impairment . Patient has significan t functional limitation in their {{activiti es of daily living* ac tivities of daily living and work capacity a ctivities of daily living and exercise capacity a ctivities of daily living and recreation }}. Skilled physical therapy is needed to safely and progressiv anna address impairment s and functional limitation s as outlined below. Patient Goals: Be able to walk, climb stairs and transfer without limitation s due to right hip pain for ADLs and exercise. Clinical Goals: 1. Demonstrat e symmetric pain free active, passive and resisted motions of the {{neck and upper extremitie s shoulder elbow, forearm and wrist trun k and lower extremitie s hip* kne e ankle}}. 2. Demonstrat e sufficient muscular endurance to meet functional demands. Treatment Plan: Patient to return for {{4 6 8* 1 0}} visits over {{4 8 12*} } weeks. We expect significan t change in pain, impairment and function in this time frame. Treatment to Include: Therapeuti c exercise and manual therapy [id number] Pepe Boyd MD Sports Medicine, [address] [place] [address] 03/24/2020 08:16:58 03/25/2020 12:00:38 Hip pain [id number] M25.551 Rubens is a 74 yo male with right hip pain c/w greater trochanter ic pain syndrome. I reviewed this diagnosis with him as well as discussing treatment. He has done PT for 2 weeks and feels his pain is getting worse. He is also using tylenol for pain. He is unable to use NSAIDS due to his history of xarelto use. He has requested a cortisone injection of the trochanter ic bursa which I do feel would help with his pain and symptoms. He states currently the pain is extremely limiting and he is unable to even walk out and get the mail. We discussed the risks/bene fits of him coming in for an injection during the COVID pandemic extensivel y. We also discussed the risks/bene fits of an injection. We will plan to arrange for a time for a trochanter ic bursa injection next week and call him when we have an appointmen t for him. [id number] Pepe Boyd MD Sports Medicine, [address] [place] [phone] 03/29/2020 14:05:50 04/11/2020 11:41:26 Hip pain [id number] M25.551 Rubens is a 74 yo male with right hip pain c/w greater trochanter ic pain syndrome. He continues to have pain despite PT. He is unable to use NSAIDS due to Xeralto use. Due to continues pain he underwent a right hip greater trochanter ic bursa injection under [place] guidance. He tolerated this well without complicati on. He will ice and rest over the next week and gradually resume normal activities . He will plan to monitor his blood sugar closer over the next week and will call for any elevated numbers. He can restart his home physical therapy in 7-10 days. He will plan to f/u with me as needed for further care. [id number] Nagi Whitman , PT Physical Therapy, [address] [phone] 04/06/2020 12:01:53 04/06/2020 16:28:38 Pain in right hip joint [id number] M25.551 74 year old {{female m robert*}} with findings most consistent with {{acute* c hronic rec urrent}} Right hip pain with movement coordinati on impairment . Patient has significan t functional limitation in their {{activiti es of daily living* ac tivities of daily living and work capacity a ctivities of daily living and exercise capacity a ctivities of daily living and recreation }}. Skilled physical therapy is needed to safely and progressiv anna address impairment s and functional limitation s as outlined below. Patient Goals: Be able to walk, climb stairs and transfer without limitation s due to right hip pain for ADLs and exercise. Clinical Goals: 1. Demonstrat e symmetric pain free active, passive and resisted motions of the {{neck and upper extremitie s shoulder elbow, forearm and wrist trun k and lower extremitie s hip* kne e ankle}}. 2. Demonstrat e sufficient muscular endurance to meet functional demands. Treatment Plan: Patient to return for {{4 6 8* 1 0}} visits over {{4 8 12*} } weeks. We expect significan t change in pain, impairment and function in this time frame. Treatment to Include: Therapeuti c exercise and manual therapy [id number] Nagi Whitman , PT Physical Therapy, [address] [phone] 04/13/2020 11:33:27 04/13/2020 12:51:03 Pain in right hip joint [id number] M25.551 74 year old {{female m robert*}} with findings most consistent with {{acute* c hronic rec urrent}} Right hip pain with movement coordinati on impairment . Patient has significan t functional limitation in their {{activiti es of daily living* ac tivities of daily living and work capacity a ctivities of daily living and exercise capacity a ctivities of daily living and recreation }}. Skilled physical therapy is needed to safely and progressiv anna address impairment s and functional limitation s as outlined below. Patient Goals: Be able to walk, climb stairs and transfer without limitation s due to right hip pain for ADLs and exercise. Clinical Goals: 1. Demonstrat e symmetric pain free active, passive and resisted motions of the {{neck and upper extremitie s shoulder elbow, forearm and wrist trun k and lower extremitie s hip* kne e ankle}}. 2. Demonstrat e sufficient muscular endurance to meet functional demands. Treatment Plan: Patient to return for {{4 6 8* 1 0}} visits over {{4 8 12*} } weeks. We expect significan t change in pain, impairment and function in this time frame. Treatment to Include: Therapeuti c exercise and manual therapy [id number] Kathy May MD , [facility], OFFICE [address] [place] [phone] 04/15/2020 09:27:50 04/19/2020 12:26:45 Atrial fibrillation [id number] I48.91 still has sx at timeson CPAP to tx apnea and to have ablation scheduled, Dr Nabeel rae Benign pro static hyperplasia with outflow obstruction [id number] N40.1 stabletera zosin tx Diabetes mellitus [id number] E11.9 A1C near goal7.7 stable meds/diets ome SE with metformin, go back to XL formulatio nexercise limited due to hip pain, working [email or web address] blood sugarsno mwcaC1C May Essential hypertension [id number] I10 in rangeat goal< 130/80on home checksnot sxno changes Hyperlipidemia [id number] E78.5 high dose statinannu al labs Hypothyroidism [id number] E03.9 stableannu al TSH Pain in ri ght hip joint [id number] [address] Boyd and [facility]i [facility] [id number] Nagi Whitman , PT Physical Therapy, [address] [phone] 04/20/2020 11:38:03 04/20/2020 13:11:44 Pain in right hip joint [id number] M25.551 74 year old {{female m robert*}} with findings most consistent with {{acute* c hronic rec urrent}} Right hip pain with movement coordinati on impairment . Patient has significan t functional limitation in their {{activiti es of daily living* ac tivities of daily living and work capacity a ctivities of daily living and exercise capacity a ctivities of daily living and recreation }}. Skilled physical therapy is needed to safely and progressiv anna address impairment s and functional limitation s as outlined below. Patient Goals: Be able to walk, climb stairs and transfer without limitation s due to right hip pain for ADLs and exercise. Clinical Goals: 1. Demonstrat e symmetric pain free active, passive and resisted motions of the {{neck and upper extremitie s shoulder elbow, forearm and wrist trun k and lower extremitie s hip* kne e ankle}}. 2. Demonstrat e sufficient muscular endurance to meet functional demands. Treatment Plan: Patient to return for {{4 6 8* 1 0}} visits over {{4 8 12*} } weeks. We expect significan t change in pain, impairment and function in this time frame. Treatment to Include: Therapeuti c exercise and manual therapy [id number] Nagi Whitman , PT Physical Therapy, [address] [phone] 04/27/2020 11:34:55 04/28/2020 08:29:37 Pain in right hip joint [id number] M25.551 74 year old {{female m robert*}} with findings most consistent with {{acute* c hronic rec urrent}} Right hip pain with movement coordinati on impairment . Patient has significan t functional limitation in their {{activiti es of daily living* ac tivities of daily living and work capacity a ctivities of daily living and exercise capacity a ctivities of daily living and recreation }}. Skilled physical therapy is needed to safely and progressiv anna address impairment s and functional limitation s as outlined below. Patient Goals: Be able to walk, climb stairs and transfer without limitation s due to right hip pain for ADLs and exercise. Clinical Goals: 1. Demonstrat e symmetric pain free active, passive and resisted motions of the {{neck and upper extremitie s shoulder elbow, forearm and wrist trun k and lower extremitie s hip* kne e ankle}}. 2. Demonstrat e sufficient muscular endurance to meet functional demands. Treatment Plan: Patient to return for {{4 6 8* 1 0}} visits over {{ 8 12*} } weeks. We expect significan t change in pain, impairment and function in this time frame. Treatment to Include: Therapeuti c exercise and manual therapy [id number] Nagi Whitman , PT Physical Therapy, [address] [phone] 05/13/2020 13:00:37 05/13/2020 13:34:49 Pain in right hip joint [id number] M25.551 74 year old {{female m robert*}} with findings most consistent with {{acute* c hronic rec urrent}} Right hip pain with movement coordinati on impairment . Patient has significan t functional limitation in their {{activiti es of daily living* ac tivities of daily living and work capacity a ctivities of daily living and exercise capacity a ctivities of daily living and recreation }}. Skilled physical therapy is needed to safely and progressiv anna address impairment s and functional limitation s as outlined below. Patient Goals: Be able to walk, climb stairs and transfer without limitation s due to right hip pain for ADLs and exercise. Clinical Goals: 1. Demonstrat e symmetric pain free active, passive and resisted motions of the {{neck and upper extremitie s shoulder elbow, forearm and wrist trun k and lower extremitie s hip* kne e ankle}}. 2. Demonstrat e sufficient muscular endurance to meet functional demands. Treatment Plan: Patient to return for {{4 6 8* 1 0}} visits over {{ 8 12*} } weeks. We expect significan t change in pain, impairment and function in this time frame. Treatment to Include: Therapeuti c exercise and manual therapy [id number] Nagi Whitman , PT Physical Therapy, [address] [phone] 05/25/2020 13:31:31 05/30/2020 09:16:43 Pain in right hip joint [id number] M25.551 74 year old {{female m robert*}} with findings most consistent with {{acute* c hronic rec urrent}} Right hip pain with movement coordinati on impairment . Patient has significan t functional limitation in their {{activiti es of daily living* ac tivities of daily living and work capacity a ctivities of daily living and exercise capacity a ctivities of daily living and recreation }}. Skilled physical therapy is needed to safely and progressiv anan address impairment s and functional limitation s as outlined below. Patient Goals: Be able to walk, climb stairs and transfer without limitation s due to right hip pain for ADLs and exercise.( 05/25/2020 ) climbing stairs and transfers have significan tly improved, walking is improving more slowly. Prior to the onset of symptoms he was walking 3 miles without difficulty . He is currently only walking 1/2 mile now with some lingering pain. He also has a goal of returning to golfing without pain or limitation . We will continue these goals. Clinical Goals: 1. Demonstrat e symmetric pain free active, passive and resisted motions of the {{neck and upper extremitie s shoulder elbow, forearm and wrist trun k and lower extremitie s hip* kne e ankle}}. 2. Demonstrat e sufficient muscular endurance to meet functional demands. ( 0) hip range of motion is improving. We have assessed that trunk rotation is also a limiting factor and tolerance in the standing and walking position. We will continue with these goals. Treatment Plan: Patient to return for {{4 6* 8 1 0}} visits over {{4 8 12*} } weeks. We expect significan t change in pain, impairment and function in this time frame. Treatment to Include: Therapeuti c exercise and manual therapy [id number] Nagi Whitman , PT Physical Therapy, [address] [address] 06/07/2020 09:33:48 06/07/2020 13:34:28 Pain in right hip joint [id number] M25.551 74 year old {{female m robert*}} with findings most consistent with {{acute* c hronic rec urrent}} Right hip pain with movement coordinati on impairment . Patient has significan t functional limitation in their {{activiti es of daily living* ac tivities of daily living and work capacity a ctivities of daily living and exercise capacity a ctivities of daily living and recreation }}. Skilled physical therapy is needed to safely and progressiv anna address impairment s and functional limitation s as outlined below. Patient Goals: Be able to walk, climb stairs and transfer without limitation s due to right hip pain for ADLs and exercise.( 05/25/2020 ) climbing stairs and transfers have significan tly improved, walking is improving more slowly. Prior to the onset of symptoms he was walking 3 miles without difficulty . He is currently only walking 1/2 mile now with some lingering pain. He also has a goal of returning to golfing without pain or limitation . We will continue these goals. Clinical Goals: 1. Demonstrat e symmetric pain free active, passive and resisted motions of the {{neck and upper extremitie s shoulder elbow, forearm and wrist trun k and lower extremitie s hip* kne e ankle}}. 2. Demonstrat e sufficient muscular endurance to meet functional demands. ( 0) hip range of motion is improving. We have assessed that trunk rotation is also a limiting factor and tolerance in the standing and walking position. We will continue with these goals. Treatment Plan: Patient to return for {{4 6* 8 1 0}} visits over {{4 8 12*} } weeks. We expect significan t change in pain, impairment and function in this time frame. Treatment to Include: Therapeuti c exercise and manual therapy [id number] Nagi Whitman , PT Physical Therapy, [address] [address] 06/10/2020 15:31:57 06/13/2020 11:53:09 Pain in right hip joint [id number] M25.551 74 year old {{female m robert*}} with findings most consistent with {{acute* c hronic rec urrent}} Right hip pain with movement coordinati on impairment . Patient has significan t functional limitation in their {{activiti es of daily living* ac tivities of daily living and work capacity a ctivities of daily living and exercise capacity a ctivities of daily living and recreation }}. Skilled physical therapy is needed to safely and progressiv anna address impairment s and functional limitation s as outlined below. Patient Goals: Be able to walk, climb stairs and transfer without limitation s due to right hip pain for ADLs and exercise.( 05/25/2020 ) climbing stairs and transfers have significan tly improved, walking is improving more slowly. Prior to the onset of symptoms he was walking 3 miles without difficulty . He is currently only walking 1/2 mile now with some lingering pain. He also has a goal of returning to [place] without pain or limitation . We will continue these goals. Clinical Goals: 1. Demonstrat e symmetric pain free active, passive and resisted motions of the {{neck and upper extremitie s shoulder elbow, forearm and wrist trun k and lower extremitie s hip* kne e ankle}}. 2. Demonstrat e sufficient muscular endurance to meet functional demands. ( 0) hip range of motion is improving. We have assessed that trunk rotation is also a limiting factor and tolerance in the standing and walking position. We will continue with these goals. Treatment Plan: Patient to return for {{4 6* 8 1 0}} visits over {{4 8 12*} } weeks. We expect significan t change in pain, impairment and function in this time frame. Treatment to Include: Therapeuti c exercise and manual therapy [id number] Pepe Boyd MD Sports Medicine, [facility] [address] [facility] [place] [address] 06/14/2020 07:41:21 06/15/2020 14:44:19 Hip pain [id number] M25.551 Rubens is a 74-year-ol d male with right low back pain which I feel is likely myofascial in nature. I feel this is less likely radiculopa thy without radiation below-the- knee or associated sensory symptoms. He has had a great of improvemen t of his lateral hip pain with his recent trochanter ic bursa corticoste roid injection. I reviewed all of this with him as well as discussing further treatment. I have advised to continue with his physical therapy. We have decided to have x-rays of his hip and lumbar spine done to evaluate for any degenerati ve changes as hip joint or back which may be causing some of his symptoms. I did advise that if he has persistent pain he may benefit from back her spine injections which would require referral to a family development specialist by his primary care doctor. I am of course happy to see Rubens romo on an as-needed basis for further care. Low back pain [id number] M54.5 [id number] Nagi Whitman , PT Physical Therapy, [facility] [address] [place] [address] 06/22/2020 13:03:11 06/23/2020 17:02:44 Pain in right hip joint [id number] 45094 M25.551 74 year old {{female m robert*}} with findings most consistent with {{acute* c hronic rec urrent}} Right hip pain with movement coordinati on impairment . Patient has significan t functional limitation in their {{activiti es of daily living* ac tivities of daily living and work capacity a ctivities of daily living and exercise capacity a ctivities of daily living and recreation }}. Skilled physical therapy is needed to safely and progressiv anna address impairment s and functional limitation s as outlined below. Patient Goals: Be able to walk, climb stairs and transfer without limitation s due to right hip pain for ADLs and exercise.( 05/25/2020 ) climbing stairs and transfers have significan tly improved, walking is improving more slowly. Prior to the onset of symptoms he was walking 3 miles without difficulty . He is currently only walking 1/2 mile now with some lingering pain. He also has a goal of returning to golfing without pain or limitation . We will continue these goals. Clinical Goals: 1. Demonstrat e symmetric pain free active, passive and resisted motions of the {{neck and upper extremitie s shoulder elbow, forearm and wrist trun k and lower extremitie s hip* kne e ankle}}. 2. Demonstrat e sufficient muscular endurance to meet functional demands. ( 0) hip range of motion is improving. We have assessed that trunk rotation is also a limiting factor and tolerance in the standing and walking position. We will continue with these goals. Treatment Plan: Patient to return for {{4 6* 8 1 0}} visits over {{4 8 12*} } weeks. We expect significan t change in pain, impairment and function in this time frame. Treatment to Include: Therapeuti c exercise and manual therapy [id number] Nagi Whitman , PT Physical Therapy, [address] [phone] 07/13/2020 11:56:38 07/14/2020 14:33:44 Pain in right hip joint [id number] M25.551 74 year old {{female m robert*}} with findings most consistent with {{acute* c hronic rec urrent}} Right hip pain with movement coordinati on impairment . Patient has significan t functional limitation in their {{activiti es of daily living* ac tivities of daily living and work capacity a ctivities of daily living and exercise capacity a ctivities of daily living and recreation }}. Skilled physical therapy is needed to safely and progressiv anna address impairment s and functional limitation s as outlined below. Patient Goals: Be able to walk, climb stairs and transfer without limitation s due to right hip pain for ADLs and exercise.( 05/25/2020 ) climbing stairs and transfers have significan tly improved, walking is improving more slowly. Prior to the onset of symptoms he was walking 3 miles without difficulty . He is currently only walking 1/2 mile now with some lingering pain. He also has a goal of returning to golfing without pain or limitation . We will continue these goals. Clinical Goals: 1. Demonstrat e symmetric pain free active, passive and resisted motions of the {{neck and upper extremitie s shoulder elbow, forearm and wrist trun k and lower extremitie s hip* kne e ankle}}. 2. Demonstrat e sufficient muscular endurance to meet functional demands. ( 0) hip range of motion is improving. We have assessed that trunk rotation is also a limiting factor and tolerance in the standing and walking position. We will continue with these goals. Treatment Plan: Patient to return for {{4 6* 8 1 0}} visits over {{4 8 12*} } weeks. We expect significan t change in pain, impairment and function in this time frame. Treatment to Include: Therapeuti c exercise and manual therapy [id number] Nagi Whitman , [facility] Physical Therapy, [address] [phone] 07/22/2020 15:01:44 07/25/2020 07:58:38 Pain in right hip joint [id number] M25.551 74 year old {{female m robert*}} with findings most consistent with {{acute* c hronic rec urrent}} Right hip pain with movement coordinati on impairment . Patient has significan t functional limitation in their {{activiti es of daily living* ac tivities of daily living and work capacity a ctivities of daily living and exercise capacity a ctivities of daily living and recreation }}. Skilled physical therapy is needed to safely and progressiv anna address impairment s and functional limitation s as outlined below. Patient Goals: Be able to walk, climb stairs and transfer without limitation s due to right hip pain for ADLs and exercise.( 05/25/2020 ) climbing stairs and transfers have significan tly improved, walking is improving more slowly. Prior to the onset of symptoms he was walking 3 miles without difficulty . He is currently only walking 1/2 mile now with some lingering pain. He also has a goal of returning to golfing without pain or limitation . We will continue these goals. Clinical Goals: 1. Demonstrat e symmetric pain free active, passive and resisted motions of the {{neck and upper extremitie s shoulder elbow, forearm and wrist trun k and lower extremitie s hip* kne e ankle}}. 2. Demonstrat e sufficient muscular endurance to meet functional demands. ( 0) hip range of motion is improving. We have assessed that trunk rotation is also a limiting factor and tolerance in the standing and walking position. We will continue with these goals. Treatment Plan: Patient to return for {{4 6* 8 1 0}} visits over {{4 8 12*} } weeks. We expect significan t change in pain, impairment and function in this time frame. Treatment to Include: Therapeuti c exercise and manual therapy [id number] Wilma Darby LPN , [facility], [address] [place] [address] 09/08/2020 13:14:44 09/08/2020 16:12:02 Active or passive immunization [id number] Z23 [id number] Nagi Whitman , PT Physical Therapy, [facility] [address] [place] [address] 09/29/2020 07:30:51 10/03/2020 08:18:53 Right side sciatica [id number] M54.31 75 year old {{female m robert*}} with findings most consistent with {{acute ch ronic* rec urrent}} back pain with lower extremity radiating pain. This has resolved quite well since an epidural injection 2 weeks ago. Physical therapy will focus on progressio n of function. Patient has significan t functional limitation in their {{activiti es of daily living act ivities of daily living and work capacity a ctivities of daily living and exercise capacity a ctivities of daily living and recreation *}}. Skilled physical therapy is needed to safely and progressiv anna address impairment s and functional limitation s as outlined below. Patient Goals: Be able to walk, stand, climb stairs and carry without limitation s to to recurrent lower extremity symptoms or low back pain. Clinical Goals: 1. Demonstrat e symmetric pain free active, passive and resisted motions of the {{neck and upper extremitie s shoulder elbow, forearm and wrist trun k and lower extremitie s* hip kne e ankle}}. 2. Demonstrat e sufficient muscular endurance to meet functional demands. Treatment Plan: Patient to return for {{4 6 8* 1 0}} visits over {{4 8 12*} } weeks. We expect significan t change in pain, impairment and function in this time frame. Treatment to Include: Therapeuti c exercise and manual therapy [id number] Nagi Whitman , PT Physical Therapy, [address] [address] 10/06/2020 08:32:29 10/06/2020 11:03:15 Right side sciatica [id number] M54.31 75 year old {{female m robert*}} with findings most consistent with {{acute ch ronic* rec urrent}} back pain with lower extremity radiating pain. This has resolved quite well since an epidural injection 2 weeks ago. Physical therapy will focus on progressio n of function. Patient has significan t functional limitation in their {{activiti es of daily living act ivities of daily living and work capacity a ctivities of daily living and exercise capacity a ctivities of daily living and recreation *}}. Skilled physical therapy is needed to safely and progressiv anna address impairment s and functional limitation s as outlined below. Patient Goals: Be able to walk, stand, climb stairs and carry without limitation s to to recurrent lower extremity symptoms or low back pain. Clinical Goals: 1. Demonstrat e symmetric pain free active, passive and resisted motions of the {{neck and upper extremitie s shoulder elbow, forearm and wrist trun k and lower extremitie s* hip kne e ankle}}. 2. Demonstrat e sufficient muscular endurance to meet functional demands. Treatment Plan: Patient to return for {{4 6 8* 1 0}} visits over {{4 8 12*} } weeks. We expect significan t change in pain, impairment and function in this time frame. Treatment to Include: Therapeuti c exercise and manual therapy [id number] Kathy May MD , [facility], [address] [place] [address] 10/07/2020 09:02:11 10/07/2020 16:45:07 Adult health examination 817873201 Z00.00 see Risk Assessment and Lifestyle Change Counseling section above Counseling [id number] Z71 .9 including cardiovasc ular risk reduction counseling Depression screening 171 340220 Z13.89 depression screening tool administer ed, entered into emr, scored and discussed, time greater than 7.5 minutes Screening for alcohol abuse 143696113 Z13.39 Atrial fibrillation 4943 6004 I48.91 has had tx and no [facility] so far with resultssta ble on xarelto Benign pro static hyperplasia with outflow obstruction 666377306 N40.1 stabletera zosin tx Diabetes mellitus 530761 09 E11.9 A1C near goal7.4 in May stable meds/dietd oing wellless exerciseho ping to change this soon with tx back painblood sugars in good range on home checks 110-130 hotwws3w due in schedule Essential hypertension 06695367 I10 goal< 130/80on home checks usually at goalmild elev todaynot sxno changeswil l send more readings via portal Hyperlipidemia 84098156 E78.5 high dose statinannu al labsat goal Hypothyroidism 12665122 E03.9 stableannu al TSH Degenerati on of lumbar intervertebral disc 61567829 M51.36 Dr Parkinject ion therapy workingwil l followhopi ng for ongoign improvemen ts and return to more exercise [id number] Nagi Whitman , PT Physical Therapy, [address] [address] 10/13/2020 08:33:24 10/13/2020 12:31:36 Right side sciatica [id number] M54.31 75 year old {{female m robert*}} with findings most consistent with {{acute ch ronic* rec urrent}} back pain with lower extremity radiating pain. This has resolved quite well since an epidural injection 2 weeks ago. Physical therapy will focus on progressio n of function. Patient has significan t functional limitation in their {{activiti es of daily living act ivities of daily living and work capacity a ctivities of daily living and exercise capacity a ctivities of daily living and recreation *}}. Skilled physical therapy is needed to safely and progressiv anna address impairment s and functional limitation s as outlined below. Patient Goals: Be able to walk, stand, climb stairs and carry without limitation s to to recurrent lower extremity symptoms or low back pain. Clinical Goals: 1. Demonstrat e symmetric pain free active, passive and resisted motions of the {{neck and upper extremitie s shoulder elbow, forearm and wrist trun k and lower extremitie s* hip kne e ankle}}. 2. Demonstrat e sufficient muscular endurance to meet functional demands. Treatment Plan: Patient to return for {{4 6 8* 1 0}} visits over {{4 8 12*} } weeks. We expect significan t change in pain, impairment and function in this time frame. Treatment to Include: Therapeuti c exercise and manual therapy [id number] Nagi Whitman , PT Physical Therapy, [address] [address] 11/04/2020 14:07:23 11/04/2020 14:34:03 Right side sciatica [id number] 24388 M54.31 75 year old {{female m robert*}} with findings most consistent with {{acute ch ronic* rec urrent}} back pain with lower extremity radiating pain. This has resolved quite well since an epidural injection 2 weeks ago. Physical therapy will focus on progressio n of function. Patient has significan t functional limitation in their {{activiti es of daily living act ivities of daily living and work capacity a ctivities of daily living and exercise capacity a ctivities of daily living and recreation *}}. Skilled physical therapy is needed to safely and progressiv anna address impairment s and functional limitation s as outlined below. Patient Goals: Be able to walk, stand, climb stairs and carry without limitation s to to recurrent lower extremity symptoms or low back pain. Clinical Goals: 1. Demonstrat e symmetric pain free active, passive and resisted motions of the {{neck and upper extremitie s shoulder elbow, forearm and wrist trun k and lower extremitie s* hip kne e ankle}}. 2. Demonstrat e sufficient muscular endurance to meet functional demands. Treatment Plan: Patient to return for {{4 6 8* 1 0}} visits over {{4 8 12*} } weeks. We expect significan t change in pain, impairment and function in this time frame. Treatment to Include: Therapeuti c exercise and manual therapy [id number] Nagi Whitman , PT Physical Therapy, [address] [address] 11/23/2020 11:34:10 11/23/2020 13:05:55 Right side sciatica [id number] 77207 M54.31 75 year old {{female m robert*}} with findings most consistent with {{acute ch ronic* rec urrent}} back pain with lower extremity radiating pain. This has resolved quite well since an epidural injection 2 weeks ago. Physical therapy will focus on progressio n of function. Patient has significan t functional limitation in their {{activiti es of daily living act ivities of daily living and work capacity a ctivities of daily living and exercise capacity a ctivities of daily living and recreation *}}. Skilled physical therapy is needed to safely and progressiv anna address impairment s and functional limitation s as outlined below. Patient Goals: Be able to walk, stand, climb stairs and carry without limitation s to to recurrent lower extremity symptoms or low back pain. Clinical Goals: 1. Demonstrat e symmetric pain free active, passive and resisted motions of the {{neck and upper extremitie s shoulder elbow, forearm and wrist trun k and lower extremitie s* hip kne e ankle}}. 2. Demonstrat e sufficient muscular endurance to meet functional demands. Treatment Plan: Patient to return for {{4 6 8* 1 0}} visits over {{ 8 12*} } weeks. We expect significan t change in pain, impairment and function in this time frame. Treatment to Include: Therapeuti c exercise and manual therapy [id number] Kathy May MD , [facility], [address] [place] [address] 03/28/2021 09:54:19 03/29/2021 10:22:46 Essential hypertension 38482116 I10 goal < 130/80 has not checked today at home has been at goal not sx no changes today fu at wellness visit Diabetes mellitus 496269 09 E11.9 A1C near goal 7.9 recheck April and stable meds/diet 120-130 range at home when he checks stable diet limited exercise with back pain right now hopes to improve stable meds Degenerati on of lumbar intervertebral disc 53563883 M51.36 Dr Corley injection tx doing better now but has been slow still resting PT hoping in coming weeks will refer as needed Atrial fibrillation 4943 6004 I48.91 ablation/C PAP tx not sx Hypothyroidism 22056163 E03.9 mildly low TSH not sx recheck April Obstructiv e sleep apnea syndrome 62940265 G47.33 dx and tx doing well managing CPAP 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 movement co-ordinat ion impairment . referred lower extremity pain. radi ating pain.* rel ated cognitive or affective tendencies . related generalize d pain.}} He has had 3 epidural steroid injections since September of last year. Patient has significan t functional limitation in their {{activiti es of daily living* ac tivities of daily living and work capacity a ctivities of daily living and exercise capacity a ctivities of daily living and recreation }}. Skilled physical therapy is needed to safely and progressiv anna address impairment s and functional limitation s as outlined below. Patient Goals: Clinical Goals: 1. Demonstrat e pain free trunk range of motion. 2. Demonstrat es sufficient trunk muscular stability to meet functional demands. Treatment Plan: Patient to return for {{4 6 8* 1 0}} visits over {{ 8 12*} } weeks. We expect significan t change in pain, impairment and function in this time frame. Treatment to Include: therapeuti c exercise and manual therapy [id number] Nagi Whitman , PT Physical Therapy, [address] [address] 06/22/2021 14:56:21 06/26/2021 07:42:59 Lumbar radiculopathy 582957462 M54.16 75 year old {{male* fe male}} with signs and symptoms consistent with {{acute ch ronic* rec urrent}} low back pain with {{mobility deficits. movement co-ordinat ion impairment . referred lower extremity pain. radi ating pain.* rel ated cognitive or affective tendencies . related generalize d pain.}} He has had 3 epidural steroid injections since September of last year. Patient has significan t functional limitation in their {{activiti es of daily living* ac tivities of daily living and work capacity a ctivities of daily living and exercise capacity a ctivities of daily living and recreation }}. Skilled physical therapy is needed to safely and progressiv anna address impairment s and functional limitation s as outlined below. Patient Goals: Clinical Goals: 1. Demonstrat e pain free trunk range of motion. 2. Demonstrat es sufficient trunk muscular stability to meet functional demands. Treatment Plan: Patient to return for {{4 6 8* 1 0}} visits over {{ 8 12*} } weeks. We expect significan t change in pain, impairment and function in this time frame. Treatment to Include: therapeuti c exercise and manual therapy [id number] Nagi Whitman , [facility] Physical Therapy, [address] [address] 08/01/2021 10:54:12 08/01/2021 13:12:10 Lumbar radiculopathy 258117919 M54.16 75 year old {{male* fe male}} with signs and symptoms consistent with {{acute ch ronic* rec urrent}} low back pain with {{mobility deficits. movement co-ordinat ion impairment . referred lower extremity pain. radi ating pain.* rel ated cognitive or affective tendencies . related generalize d pain.}} He has had 3 epidural steroid injections since September of last year. Patient has significan t functional limitation in their {{activiti es of daily living* ac tivities of daily living and work capacity a ctivities of daily living and exercise capacity a ctivities of daily living and recreation }}. Skilled physical therapy is needed to safely and progressiv anna address impairment s and functional limitation s as outlined below. Patient Goals: Clinical Goals: 1. Demonstrat e pain free trunk range of motion. 2. Demonstrat es sufficient trunk muscular stability to meet functional demands. Treatment Plan: Patient to return for {{4 6 8* 1 0}} visits over {{4 8 12*} } weeks. We expect significan t change in pain, impairment and function in this time frame. Treatment to Include: therapeuti c exercise and manual therapy [id number] Kathy May MD , [facility], [address] [place] [address] 08/11/2021 09:42:13 08/14/2021 09:56:39 Hypothyroidism 20148477 E03.9 TSH in rangestabl e with current dosecontin ue 125 mcg Atrial fibrillation 4943 6004 I48.91 ablation/C PAP txRRR todayon NOACnot sx Essential hypertension 75579726 I10 goal < 130/80at goalnot sxno changesBMP reviewed Diabetes mellitus 214116 09 E11.9 A1C at goal adjusted for age < 8 7.5gets good readings on blood sugar at homestable w mgmtmild peripheral neuropathy signs Obstructiv e sleep apnea syndrome 48065628 G47.33 dx and tx doing well managing CPAP Hyperlipidemia 41649584 E78.5 high dose statinannu al labsat goal Peripheral neuropathy due to type 2 diabetes mellitus 5538503292 107 E11.42 mild signs on examexcell ent foot care and integrity [id number] RENAN CarrasquilloN FP, [facility], [address] [place] [address] 09/06/2021 09:50:59 09/07/2021 14:35:02 Active or passive immunization 352780318 Z23 [id number] Nagi Whitman , PT Physical Therapy, [facility] [address] [place] [address] 09/07/2021 10:28:18 09/07/2021 15:04:57 Lumbar radiculopathy 633325533 M54.16 Patient Goals: Be able to walk for care of his dog and exercise and return to golfing without limitation s due to back and leg pain(09/07) these goals have been met Clinical Goals: 1. Demonstrat e pain free trunk range of motion. 2. Demonstrat es sufficient trunk muscular stability to meet functional demands.(1 ) patient continues to have limited extension and side-lying range of motion but his muscular endurance allows him to have higher levels of function without limitation s. He is continuing with a home exercise program to address his remaining deficits. [id number] Kathy May MD , [facility], [address] [place] [address] 11/09/2021 10:02:48 11/09/2021 11:00:32 Adult health examination 204456915 Z00.00 see Risk Assessment and Lifestyle Change Counseling section above Counseling 098823208 Z71 .9 including cardiovasc ular risk reduction counseling Depression screening 171 369825 Z13.31 depression screening tool administer ed, entered into emr, scored and discussed, time greater than 7.5 minutes Screening for alcohol abuse 297219805 Z13.39 Atrial fibrillation 4943 6004 I48.91 ablation/C PAP txRRR todayon NOACnot sx Benign pro static hyperplasia with outflow obstruction 584721417 N40.1 stabletera zosin tx Degenerati on of lumbar intervertebral disc 43203249 M51.36 Dr Corley injection txsx get better and worsenotes overall progressio nstaying active as ablegoing to try recumbant stationary bike Diabetes mellitus 763053 09 E11.9 A1C at goal adjusted for age < 8 7.5gets good readings on blood sugar at homestable w mgmtmild peripheral neuropathy signs Hyperlipidemia 87805174 E78.5 high dose statinannu al labsat goal 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 504410228 E11.3299 followed by ophtho no vision changes Hypothyroidism 48804158 E03.9 TSH elevatedno t sxraised levo and f/u labs in Nov Osteoarthritis 194544464 M19.90 ongoing issues back and hands and kneesdiscu ssed management pain controlexe rciseanti- inflammato ry diet Venous sta sis edema of bilateral lower limbs 3847432668 9539266 I87.2 LE edemanotes improved but ongoingwil ling to try compressio nwill order [id number] Kathy May MD , [facility], [address] [place] [address] 05/10/2022 09:49:55 05/16/2022 17:07:59 Essential hypertension 31513598 I10 goal < 130/80at goal notes some sx lightheade d, episodedec rease amlodipine to 5 mgf/u one month 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 225898148 E11.3299 followed by ophtho no vision changes Atrial fibrillation 4943 6004 I48.91 on NOACnot sxstablera te control Degenerati on of lumbar intervertebral disc 82743028 M51.36 Dr Corley injection txrecent steroid injection 2 weeks agostaying active Diabetes mellitus 658388 09 E11.9 A1C at goal adjusted for age < 8 7.3encoura ged to check sugars for sx?ing lower bp or sugars causing sxadvised to tx and sx lows even if his blood sugar meter not on hand Hypothyroidism 23953762 E03.9 TSH in rangelower in Nov, normal Marchrepea t next labs for stability Benign pro static hyperplasia with outflow obstruction 634299326 N40.1 noting some increase nighttime sx but intermitte ntmonitor for [place]terazos [place] [id number] Kathy May MD , [facility], [address] [place] [address] 06/13/2022 15:51:26 06/14/2022 10:53:37 Essential hypertension 51292522 I10 goal < 130/80near ly at goal here todaymostl y at goal at home no longer lightheade d on less amlodipine will leave on lower dose and f/u at wellness Benign pro static hyperplasia with outflow obstruction 047581162 N40.1 ongoing increased nocturiawo uld like it to be lesson terazosinu rology referral for further considerat ion tx options [id number] Kathy May MD , [facility], [address] [place] [address] 08/28/2022 08:57:43 08/28/2022 10:18:54 Stiff neck 548092835 M43.6 noted on examsx are more acute with shoulder painsome radicular sx on right armPT for tx to startadvis ed gentle ROMcontinu e tylenol Pain of ri ght shoulder joint 0820880632 3314891 M25.511 check labs for PMR/lymemo re acute onset limitation right shoulderno manny left on exampain right armno injury or new activitywo rse in AMcannot take nsaidstaki ng tylenolsta rt PTtx PMR if labs dx [id number] Kathy May MD , [facility], [address] [place] [address] 09/12/2022 08:34:44 09/12/2022 13:52:49 Lyme disease 00668450 A69.20 positive lyme, sxwas tx for PMR working dxhe had pain again in shoulder when missed a dose of prednisone we will try to wean him off prednisone he is tolerating doxyhe has no other sx or complaints repeat labs todayf/u three weeks Atrial fibrillation 4943 6004 I48.91 on NOACnot sxstablera te control Hypothyroidism 65407660 E03.9 TSH was low in cre sed levorepeat TSHno sx (other than as related above) Essential hypertension 76669182 I10 goal < 130/80at goal on recheck [id number] Millie Julian NP FP, [facility], [address] [place] [address] 09/17/2022 17:13:53 10/25/2022 13:54:07 COVID-19 107060142 U07.1 Tested positive on Saturday09/14/22Sx improving, currently mild Exposure t o SARS-CoV-2 136365095 Z20.828 Will consider paxlovid but on prednisone and other meds that may interactWi ll discuss with PCP and f/u with pt tomorrow (Saturday)P t will fu if sx worsen - pt & in agreement w plan. [id number] Kathy May MD , [facility], [address] [place] [address] 10/03/2022 09:30:38 10/03/2022 16:10:18 Lyme disease 97331414 A69.20 treated 28 dayssee notes below re joint painsno other sx Multiple joint pain 3567 8005 M25.50 more right UE, wrist to shoulderbe tter on prednisone at higher doselittle relief on 5 mg, some at 7.5, much less to no pain on 10 mghas rheum appt Nov 07will increase pred to 10 mg pending this apptrepeat labswas thought to be PMR, then dx lyme and had COVID in interimunc lear why still pain after lyme tx Diabetes mellitus 970610 09 E11.9 A1C at goal adjusted for age < 8 7.9 has had higher readings on prednisone and now lowerhe is watching dietwishes to be more active, which he can do if he keeps with prednisone for pain mgmtlabs reviewedon ly urine microalb due before wellnesswi ll do sooner as he is going to lab re abovecan cancel appt for lab in [id number] Kathy May MD , [facility], [address] [place] [address] 10/31/2022 10:37:28 10/31/2022 15:03:55 Diabetes mellitus 05753669 E11.9 A1C at 9.6, NOT at goal adjusted for age < 8 increase glimepirid e to 8 mg has had higher readings on prednisone he is watching diet Degenerati on of lumbar intervertebral disc 43896007 M51.36 appt with surgeon on 11/13had gotten rx for diclofenac but advised not to use with prednisone Essential hypertension 83104660 I10 goal is < 130/80, NOT at goal uhctg171/6 4 in office, similar readings at home since stopping amlodipine will not add another agent or increase lisinopril at this time given upcoming apptswill follow up after appointmen ts this monthPotas sium decreased from 5.9 to 5.2 with discontinu ation of CCB Multiple joint pain 3567 8005 M25.50 more right UE, wrist to shoulder, hips, kneesbette r on prednisone at higher dose, recently exacerbate d with putting up xmas treedecrea sed to 7.5 mg since last apptadvise d to not increase dose d/t elevated A1chas rheum appt Nov 07 [id number] Kathy May MD FP, [facility], [address] [place] [address] 11/13/2022 11:36:00 11/13/2022 12:07:51 Adult health examination 579106329 Z00.00 see Risk Assessment and Lifestyle Change Counseling section above Counseling 751633279 Z71 .9 including cardiovasc ular risk reduction counseling Depression screening 171 591693 Z13.31 depression screening tool administer ed, entered into emr, scored and discussed, time greater than 7.5 minutes Screening for alcohol abuse 534512195 Z13.39 Polymyalgi a rheumatica 76658200 M35.3 saw rheumfelt correct w dxon steroids but mildly sx stillgiven higher sugars thinking about moving to methotrexa te txhas f/u mid Novemberrec ommended PTpt likely to do this in November and wants [facility], referral placed for easereassu maryam todaygoal to get off steroids and mgmt sx Degenerati on of lumbar intervertebral disc 66360471 M51.36 appt with surgeon on 11/13ink ing about possible procedure to release pressurefi nds that radiating back pain does affect his goal of walking 3 miles daily Diabetes mellitus 387136 09 E11.9 A1C at 9.6, NOT at goal adjusted for age < 8 increased glimepirid e to 8 mg this monththis is secondary to steroid txgoals right now to find alt mgmt to PMR and come off steroidsco ntinue healthy dietexerci se as toleratedc ontinue medscheck A1C in 3 months Essential hypertension 19137696 I10 close to [id number]/6 0sno changes at this timef/u 3 months Hypothyroidism 51785953 E03.9 TSH in range Octcontinu e currentrec heck for stability 3 mo Atrial fibrillation 4943 6004 I48.91 on NOACnot sxstablera te control Benign pro static hyperplasia with outflow obstruction 653915616 N40.1 feels sx well managed at this time [id number] Nagi Whitman , PT Physical Therapy, [facility] [address] [place] [address] 12/13/2022 16:07:43 12/14/2022 08:12:50 Pain of left shoulder joint 8988775778 0179040 M25.512 77 year old {{female m robert*}} with findings most consistent with Joint mobility deficit in the shoulders and wrists coincident al with differenti al diagnosis of polymyalgi a rheumatica or rheumatoid arthritis. He is also scheduled for back surgery on January 04. Patient has significan t functional limitation in their {{activiti es of daily living act ivities of daily living and work capacity a ctivities of daily living and exercise capacity* activities of daily living and recreation }}. Skilled physical therapy is needed to safely and progressiv anna address impairment s and functional limitation s as outlined below. Patient Goals: To be able to sleep through the night more consistent ly, become more flexible more quickly in the morning. To be able to use his arms for reaching pushing and pulling for ADLs. To be prepared for his back surgery in a few weeks. Clinical Goals: 1. Demonstrat e symmetric pain free active, passive and resisted motions of the {{neck and upper extremitie s shoulder elbow, forearm and wrist trun k and lower extremitie s hip knee ankle hillary ulder and wrists#}}. 2. Demonstrat e sufficient muscular endurance to meet functional demands. Treatment Plan: Patient to return for {{4 6 8* 1 0}} visits over {{4 8 12*} } weeks. We expect significan t change in pain, impairment and function in this time frame. Treatment to Include: Therapeuti c exercise and manual therapy Pain of ri ght shoulder joint [id number] M25.866 [id number] Kathy May MD , [facility], [address] [place] [address] 12/18/2022 09:34:18 12/18/2022 17:26:39 Pre-surgery evaluation [id number] Z01.818 clear for his surgery with Dr Medina done with cardiology last week and reviewedla bs UTD in [facility] re to hold Xarelto 2 days before and after procedure Diabetes mellitus [id number] E11.9 A1C at 9.6, NOT at goal adjusted for age < 8 discussed incr to 3 500 mg metformin and watch GI SEhe will try and stop if he doesn't tolerate and go back to 2 500 mg tabshe is on the extended releasedie t stableongo ing efforts with activityty ring to come off prednisone working with rheum Atrial fibrillation 4943 6004 I48.91 on NOACnot sxstablera te controlcar diology last week Degenerati on of lumbar intervertebral disc 14096564 M51.36 pt is clear for his decompress ion with Dr Julian 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 PMR or RAon hydroxychl oroquine and pred now with goal to wean prednisone after surgery [id number] Nagi Whitman , PT Physical Therapy, [facility] [address] [place] [address] 12/20/2022 16:26:59 12/21/2022 09:35:21 Pain of left shoulder joint [id number] M25.512 77 year old {{female m robert*}} with findings most consistent with Joint mobility deficit in the shoulders and wrists coincident al with differenti al diagnosis of polymyalgi a rheumatica or rheumatoid arthritis. He is also scheduled for back surgery on January 04. Patient has significan t functional limitation in their {{activiti es of daily living act ivities of daily living and work capacity a ctivities of daily living and exercise capacity* activities of daily living and recreation }}. Skilled physical therapy is needed to safely and progressiv anna address impairment s and functional limitation s as outlined below. Patient Goals: To be able to sleep through the night more consistent ly, become more flexible more quickly in the morning. To be able to use his arms for reaching pushing and pulling for ADLs. To be prepared for his back surgery in a few weeks. Clinical Goals: 1. Demonstrat e symmetric pain free active, passive and resisted motions of the {{neck and upper extremitie s shoulder elbow, forearm and wrist trun k and lower extremitie s hip knee ankle hillary ulder and wrists#}}. 2. Demonstrat e sufficient muscular endurance to meet functional demands. Treatment Plan: Patient to return for {{4 6 8* 1 0}} visits over {{ 8 12*} } weeks. We expect significan t change in pain, impairment and function in this time frame. Treatment to Include: Therapeuti c exercise and manual therapy Pain of ri ght shoulder joint [id number] [id number] M25.743 [id number] Nagi Whitman , PT Physical Therapy, [address] [address] 12/27/2022 09:49:08 12/27/2022 10:41:50 Pain of left shoulder joint [id number] [id number] M25.512 77 year old {{female m robert*}} with findings most consistent with Joint mobility deficit in the shoulders and wrists coincident al with differenti al diagnosis of polymyalgi a rheumatica or rheumatoid arthritis. He is also scheduled for back surgery on January 04. Patient has significan t functional limitation in their {{activiti es of daily living act ivities of daily living and work capacity a ctivities of daily living and exercise capacity* activities of daily living and recreation }}. Skilled physical therapy is needed to safely and progressiv anna address impairment s and functional limitation s as outlined below. Patient Goals: To be able to sleep through the night more consistent ly, become more flexible more quickly in the morning. To be able to use his arms for reaching pushing and pulling for ADLs. To be prepared for his back surgery in a few weeks. Clinical Goals: 1. Demonstrat e symmetric pain free active, passive and resisted motions of the {{neck and upper extremitie s shoulder elbow, forearm and wrist trun k and lower extremitie s hip knee ankle hillary ulder and wrists#}}. 2. Demonstrat e sufficient muscular endurance to meet functional demands. Treatment Plan: Patient to return for {{4 6 8* 1 0}} visits over {{4 8 12*} } weeks. We expect significan t change in pain, impairment and function in this time frame. Treatment to Include: Therapeuti c exercise and manual therapy Pain of ri ght shoulder joint [id number] M25.458 [id number] Kathy May MD , [facility], [address] [place] [address] 02/13/2023 09:33:22 02/13/2023 10:38:45 Diabetes mellitus 33716149 E11.9 A1C up to 10, NOT at goal adjusted for age < 8 not doing well with med increases, some SEgo back to 1000 mg metformino rei to keep glimeperid e but not noting effect on sugarsdisc ussed other options for tx including long acting insulin which he declineswa nts to wait and wean prednisone as he isf/u one month Atrial fibrillation 4943 6004 I48.91 on NOACnot sxstablera te controlcar diology follows Degenerati on of lumbar intervertebral disc 29432493 M51.[address] Julian and is doing wellless pain Polymyalgi a rheumatica 49546818 M35.3 working with rheumon hydroxychl oroquine and weaning prednisone some sx recurringh e has f/u in three mowill see how he does on prednisone weannoting that likely source of liver enzymes up is from hydroxychl oroquinewi ll update rhuem after labs Elevated l evel of transaminase and lactic acid dehydrogenase [id number] R74.01 w/u below though suspect drug SE as noted abovef/u with rheum after labs Hypothyroidism 62383145 E03.9 TSH up to 5continue currentrec heck for stability 3 mo [id number] Nagi Whitman , PT Physical Therapy, [address] [address] 02/12/2023 14:53:43 02/13/2023 09:10:32 Pain of right shoulder joint 9328940851 9600457 M25.511 Muscle weakness 67771715 M62.81 [id number] Nagi Whitman , PT Physical Therapy, [address] [address] 02/19/2023 16:17:42 02/20/2023 08:46:59 Pain of right shoulder joint [id number] M25.511 77 year old {{female m robert*}} with findings most consistent with {{acute ch ronic* rec urrent}} right shoulder pain, lower extremity weakness and neuropathy Patient has significan t functional limitation in their {{activiti es of daily living act ivities of daily living and work capacity a ctivities of daily living and exercise capacity a ctivities of daily living and recreation *}}. Skilled physical therapy is needed to safely and progressiv anna address impairment s and functional limitation s as outlined below.Adelaida ent Goals:Be able to reach, push, pull, lift and carry with his right arm for ADLs and recreation to include golfing without limitation s due to right shoulder pain. To be able to walk, squat, bend, lift and carry for ADLs and recreation to include golfing without limitation s due to lower extremity weakness or balance Clinical Goals:1. Demonstrat e symmetric pain free active, passive and resisted motions of the {{neck and upper extremitie s shoulder * elbow, forearm and wrist trun k and lower extremitie s hip knee ankle}}. 2. Demonstrat e sufficient muscular endurance to meet functional demands. 3. Demonstrat e 5/5 strength throughout the lower extremitie s.4. Demonstrat e active ankle dorsiflexi on to 10?? and active plantar flexion through full available range of motion in single leg stance. 5. Demonstrat e feet together balance with eyes closed for 10 seconds, demonstrat e tandem balance 10 seconds 5 out of 5 attempts. Treatment Plan: Patient to return for {{4 6 8* 1 0}} visits over {{4 8 12*} } weeks. We expect significan t change in pain, impairment and function in this time frame. Muscle weakness 27260231 M62.81 [id number] Nagi Whitman , PT Physical Therapy, [address] [address] 03/05/2023 12:19:23 03/05/2023 13:17:48 Pain of right shoulder joint [id number] [id number] M25.511 77 year old {{female m robert*}} with findings most consistent with {{acute ch ronic* rec urrent}} right shoulder pain, lower extremity weakness and neuropathy Patient has significan t functional limitation in their {{activiti es of daily living act ivities of daily living and work capacity a ctivities of daily living and exercise capacity a ctivities of daily living and recreation *}}. Skilled physical therapy is needed to safely and progressiv anna address impairment s and functional limitation s as outlined below.Adelaida ent Goals:Be able to reach, push, pull, lift and carry with his right arm for ADLs and recreation to include golfing without limitation s due to right shoulder pain. To be able to walk, squat, bend, lift and carry for ADLs and recreation to include golfing without limitation s due to lower extremity weakness or balance Clinical Goals:1. Demonstrat e symmetric pain free active, passive and resisted motions of the {{neck and upper extremitie s shoulder * elbow, forearm and wrist trun k and lower extremitie s hip knee ankle}}. 2. Demonstrat e sufficient muscular endurance to meet functional demands. 3. Demonstrat e 5/5 strength throughout the lower extremitie s.4. Demonstrat e active ankle dorsiflexi on to 10?? and active plantar flexion through full available range of motion in single leg stance. 5. Demonstrat e feet together balance with eyes closed for 10 seconds, demonstrat e tandem balance 10 seconds 5 out of 5 attempts. Treatment Plan: Patient to return for {{4 6 8* 1 0}} visits over {{4 8 12*} } weeks. We expect significan t change in pain, impairment and function in this time frame. Muscle weakness 26810070 M62.81 [id number] Kathy May MD , [facility], [address] [place] [address] 03/20/2023 08:39:34 03/20/2023 12:19:32 Diabetes mellitus 17541235 E11.9 blood sugars are coming down on prednisone ranging 130-190die t stable, exercising regularly discussed other med options agree no changes today given improvingf /u labs 2 months Essential hypertension 17722871 I10 at goal< 130/80 Psoriasis 2296365 L40.9 notes some eruptions on right legconsist ent with psoriasis, not pruriticno te this is possible SE on Hydroxychl oroquinehe will treat topically and monitor Polymyalgi a rheumatica 50169226 M35.3 following with rheumatolo gyweaning prednisone taking hydroxychl oroquinemo nitoring Degenerati on of lumbar intervertebral disc 69639787 M51.[address] Eliel Escobar ght sided pain resolvedno w more left sided sxseeing PSS tomorrow [id number] Nagi Whitman , PT Physical Therapy, [facility] [address] [place] [address] 03/14/2023 09:24:51 03/14/2023 10:27:45 Pain of right shoulder joint 0166847593 [id number] M25.511 77 year old {{female m robert*}} with findings most consistent with {{acute ch ronic* rec urrent}} right shoulder pain, lower extremity weakness and neuropathy Patient has significan t functional limitation in their {{activiti es of daily living act ivities of daily living and work capacity a ctivities of daily living and exercise capacity a ctivities of daily living and recreation *}}. Skilled physical therapy is needed to safely and progressiv anna address impairment s and functional limitation s as outlined below.Adelaida ent Goals:Be able to reach, push, pull, lift and carry with his right arm for ADLs and recreation to include golfing without limitation s due to right shoulder pain. To be able to walk, squat, bend, lift and carry for ADLs and recreation to include golfing without limitation s due to lower extremity weakness or balance Clinical Goals:1. Demonstrat e symmetric pain free active, passive and resisted motions of the {{neck and upper extremitie s shoulder * elbow, forearm and wrist trun k and lower extremitie s hip knee ankle}}. 2. Demonstrat e sufficient muscular endurance to meet functional demands. 3. Demonstrat e 5/5 strength throughout the lower extremitie s.4. Demonstrat e active ankle dorsiflexi on to 10?? and active plantar flexion through full available range of motion in single leg stance. 5. Demonstrat e feet together balance with eyes closed for 10 seconds, demonstrat e tandem balance 10 seconds 5 out of 5 attempts. Treatment Plan: Patient to return for {{4 6 8* 1 0}} visits over {{4 8 12*} } weeks. We expect significan t change in pain, impairment and function in this time frame. Muscle weakness 17149458 M62.81 [id number] Nagi Whitman , PT Physical Therapy, [facility] [address] [place] [address] 03/26/2023 14:19:32 03/26/2023 15:04:23 Pain of right shoulder joint [id number] M25.511 77 year old {{female m robert*}} with findings most consistent with {{acute ch ronic* rec urrent}} right shoulder pain, lower extremity weakness and neuropathy Patient has significan t functional limitation in their {{activiti es of daily living act ivities of daily living and work capacity a ctivities of daily living and exercise capacity a ctivities of daily living and recreation *}}. Skilled physical therapy is needed to safely and progressiv anna address impairment s and functional limitation s as outlined below.Adelaida ent Goals:Be able to reach, push, pull, lift and carry with his right arm for ADLs and recreation to include golfing without limitation s due to right shoulder pain. To be able to walk, squat, bend, lift and carry for ADLs and recreation to include golfing without limitation s due to lower extremity weakness or balance Clinical Goals:1. Demonstrat e symmetric pain free active, passive and resisted motions of the {{neck and upper extremitie s shoulder * elbow, forearm and wrist trun k and lower extremitie s hip knee ankle}}. 2. Demonstrat e sufficient muscular endurance to meet functional demands. 3. Demonstrat e 5/5 strength throughout the lower extremitie s.4. Demonstrat e active ankle dorsiflexi on to 10?? and active plantar flexion through full available range of motion in single leg stance. 5. Demonstrat e feet together balance with eyes closed for 10 seconds, demonstrat e tandem balance 10 seconds 5 out of 5 attempts. Treatment Plan: Patient to return for {{4 6 8* 1 0}} visits over {{4 8 12*} } weeks. We expect significan t change in pain, impairment and function in this time frame. Muscle weakness 27469400 M62.81 [id number] Nagi Whitman , PT Physical Therapy, [facility] [address] [place] [address] 04/02/2023 10:49:12 04/02/2023 11:41:40 Pain of right shoulder joint [id number] M25.511 77 year old {{female m robert*}} with findings most consistent with {{acute ch ronic* rec urrent}} right shoulder pain, lower extremity weakness and neuropathy Patient has significan t functional limitation in their {{activiti es of daily living act ivities of daily living and work capacity a ctivities of daily living and exercise capacity a ctivities of daily living and recreation *}}. Skilled physical therapy is needed to safely and progressiv anna address impairment s and functional limitation s as outlined below.Adelaida ent Goals:Be able to reach, push, pull, lift and carry with his right arm for ADLs and recreation to include golfing without limitation s due to right shoulder pain. To be able to walk, squat, bend, lift and carry for ADLs and recreation to include golfing without limitation s due to lower extremity weakness or balance Clinical Goals:1. Demonstrat e symmetric pain free active, passive and resisted motions of the {{neck and upper extremitie s shoulder * elbow, forearm and wrist trun k and lower extremitie s hip knee ankle}}. 2. Demonstrat e sufficient muscular endurance to meet functional demands. 3. Demonstrat e 5/5 strength throughout the lower extremitie s.4. Demonstrat e active ankle dorsiflexi on to 10?? and active plantar flexion through full available range of motion in single leg stance. 5. Demonstrat e feet together balance with eyes closed for 10 seconds, demonstrat e tandem balance 10 seconds 5 out of 5 attempts. Treatment Plan: Patient to return for {{4 6 8* 1 0}} visits over {{4 8 12*} } weeks. We expect significan t change in pain, impairment and function in this time frame. Muscle weakness 29062226 M62.81 [id number] Nagi Whitman , PT Physical Therapy, [facility] [address] [place] [address] 04/09/2023 13:34:52 04/09/2023 14:46:45 Pain of right shoulder joint [id number] [id number] M25.511 77 year old {{female m robert*}} with findings most consistent with {{acute ch ronic* rec urrent}} right shoulder pain, lower extremity weakness and neuropathy Patient has significan t functional limitation in their {{activiti es of daily living act ivities of daily living and work capacity a ctivities of daily living and exercise capacity a ctivities of daily living and recreation *}}. Skilled physical therapy is needed to safely and progressiv anna address impairment s and functional limitation s as outlined below.Adelaida ent Goals:Be able to reach, push, pull, lift and carry with his right arm for ADLs and recreation to include golfing without limitation s due to right shoulder pain.(03/25) patient is having very little limitation at this point in right upper extremity function. To be able to walk, squat, bend, lift and carry for ADLs and recreation to include golfing without limitation s due to lower extremity weakness or balance() Walking has improved considerab ly and he was able to golf this morning but has not been able to do so consistent ly. We will continue these goals. Clinical Goals:1. Demonstrat e symmetric pain free active, passive and resisted motions of the {{neck and upper extremitie s shoulder * elbow, forearm and wrist trun k and lower extremitie s hip knee ankle}}. 2. Demonstrat e sufficient muscular endurance to meet functional demands. 3. Demonstrat e 5/5 strength throughout the lower extremitie s.4. Demonstrat e active ankle dorsiflexi on to 10?? and active plantar flexion through full available range of motion in single leg stance. 5. Demonstrat e feet together balance with eyes closed for 10 seconds, demonstrat e tandem balance 10 seconds 5 out of 5 attempts.( 04/09/2023 ) Patient is working towards but has not achieved his strength or balance goals. He is demonstrat ing improvemen t in upper extremity active passive and resisted motions.Tr eatment Plan: Patient to return for {{4* 6 8 1 0}} visits over {{4 8 12*} } weeks. We expect significan t change in pain, impairment and function in this time frame. Muscle weakness 34906239 M62.81 [id number] Nagi Whitman , PT Physical Therapy, [facility] [address] [place] [address] 04/30/2023 16:10:40 05/01/2023 11:19:35 Pain of right shoulder joint [id number] M25.511 77 year old {{female m robert*}} with findings most consistent with {{acute ch ronic* rec urrent}} right shoulder pain, lower extremity weakness and neuropathy Patient has significan t functional limitation in their {{activiti es of daily living act ivities of daily living and work capacity a ctivities of daily living and exercise capacity a ctivities of daily living and recreation *}}. Skilled physical therapy is needed to safely and progressiv anna address impairment s and functional limitation s as outlined below.Adelaida ent Goals:Be able to reach, push, pull, lift and carry with his right arm for ADLs and recreation to include golfing without limitation s due to right shoulder pain.(03/25) patient is having very little limitation at this point in right upper extremity function. To be able to walk, squat, bend, lift and carry for ADLs and recreation to include golfing without limitation s due to lower extremity weakness or balance() Walking has improved considerab ly and he was able to golf this morning but has not been able to do so consistent ly. We will continue these goals. Clinical Goals:1. Demonstrat e symmetric pain free active, passive and resisted motions of the {{neck and upper extremitie s shoulder * elbow, forearm and wrist trun k and lower extremitie s hip knee ankle}}. 2. Demonstrat e sufficient muscular endurance to meet functional demands. 3. Demonstrat e 5/5 strength throughout the lower extremitie s.4. Demonstrat e active ankle dorsiflexi on to 10?? and active plantar flexion through full available range of motion in single leg stance. 5. Demonstrat e feet together balance with eyes closed for 10 seconds, demonstrat e tandem balance 10 seconds 5 out of 5 attempts.( 04/09/2023 ) Patient is working towards but has not achieved his strength or balance goals. He is demonstrat ing improvemen t in upper extremity active passive and resisted motions.Tr eatment Plan: Patient to return for {{4* 6 8 1 0}} visits over {{4 8 12*} } weeks. We expect significan t change in pain, impairment and function in this time frame. Muscle weakness 69189924 M62.81 [id number] Kathy May MD FP, [facility], [address] [place] [address] 06/18/2023 09:37:08 06/18/2023 10:45:39 Cough [id number] R05.9 occ use inhaler with sx illness Diabetes mellitus 682234 09 E11.9 blood sugars are coming downnotes much lower fastingdoe sn't like metformin, GI SE and in current arthritic pain setting this is hardtrial just one [id number] in 1-2 months Essential hypertension 15786227 I10 at goal< 130/80lowe r today, not sxcardiolo gy mgmt as well Hypothyroidism 20414815 E03.9 in range April Rheumatoid arthritis 698 42928 M06.9 working dson hydroxycho lorquine? effecthas pain, less than previoustr debbie to come off prednisone on 2mg daily now Psoriasis 0980013 L40.9 using topicalssu spect SE exacerbati on from hydroxycho lorquinewa iting for rheum appt Atrial fibrillation 4943 6004 I48.91 on NOACnot sxstablera te controlcar diology follows Degenerati on of lumbar intervertebral disc 50382104 M51.36 occ flares with painhas visit Dr Corley this Jul [id number] Nagi Whitman , PT Physical Therapy, [facility] [address] [place] [address] 06/18/2023 08:48:20 06/18/2023 13:53:20 Pain of right shoulder joint [id number] [id number] M25.511 Patient Goals:Be able to reach, push, pull, lift and carry with his right arm for ADLs and recreation to include golfing without limitation s due to right shoulder pain.(05/26) he has not returned to golfing. His neck and shoulder pain has reached a plateau but is able to use his arms for his ADLs. To be able to walk, squat, bend, lift and carry for ADLs and recreation to include golfing without limitation s due to lower extremity weakness or balance() again he has not returned to golfing but is no longer noticing any limitation to his ADLs or recreation due to lower extremity weakness. Clinical Goals:1. Demonstrat e symmetric pain free active, passive and resisted motions of the {{neck and upper extremitie s shoulder * elbow, forearm and wrist trun k and lower extremitie s hip knee ankle}}. 2. Demonstrat e sufficient muscular endurance to meet functional demands. 3. Demonstrat e 5/5 strength throughout the lower extremitie s.4. Demonstrat e active ankle dorsiflexi on to 10?? and active plantar flexion through full available range of motion in single leg stance. 5. Demonstrat e feet together balance with eyes closed for 10 seconds, demonstrat e tandem balance 10 seconds 5 out of 5 attempts.( 06/18/2023 ) He continues to have ankle plantarfle xion and dorsiflexi on weakness that is improving with exercise. He is reached his balance exercise goals. 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 [id number] E11.3299 followed by ophtho no vision changeswor [place] on DM controlsee below Diabetes mellitus 722254 09 E11.9 A1C was high, > 9blood sugars coming down in past three weeks off prednisone he is willing to try 1000 mg daily dose metformin again, had some GI effects when taking on prednisone if he has SE can try splitting dose or stopcontin ue checking sugarswalk after mealsf/u at wellness Posterior rhinorrhea [phone] R09.82 notes sx for about six monthnight cough bothersome feels drip, mostly on left sidestart with trial nasal antihistam ine [id number] Kathy May MD , [facility], [address] [place] [address] 11/14/2023 09:57:53 11/14/2023 13:44:51 Adult health examination [id number] Z00.00 see Risk Assessment and Lifestyle Change Counseling section above Depression screening 171 879055 Z13.31 depression screening tool administer ed Screening for alcohol abuse 453814712 Z13.39 Alcohol use screening tool administer ed Posterior rhinorrhea 758 43877 R09.82 sx are controlled when he uses azelastine enc to continue use as neededmay stop seasonally if not sx Bilateral carpal tunnel syndrome [id number] G56.03 new dxworking with rheumatolo gy for nowhome exercisesr ecommend splintingh as f/u with specialist at [place] for further tx mgmt per referral of Dr Coronado Atrial fibrillation 4943 6004 I48.91 on NOACnot sxstablera te controlcar diology follows Degenerati on of lumbar intervertebral disc 13374431 M51.36 chronic painwonder ing how much RA drugs will helpcan f/u with Dr Corley for other txwill review with rheumadvis ed to let his sx guide him Diabetes mellitus 666861 09 E11.9 A1Cat goal 7.5range at home 100-140 oftendoing wellnote proteinuri a, will continue tracking annually and watch renal functionco ntinue current mgmt Essential hypertension 51528652 I10 not at goal< 130/80has been good at other apptssaw cardiolgy last [facility], [facility] reviewedno changesche ck at homecall with reportf/u 6 mo or sooner if not at goal Hypothyroidism 84158499 E03.9 in rangenot sx Hyperlipidemia 64758527 E78.5 high dose statinannu al labsat goal 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 316621963 E11.3299 followed by ophtho up to date with eye careDM mgmt focus Rheumatoid arthritis 698 47810 M06.9 dual agents, Humira and methotrexa teDr Tallatf/u tomorrowho peful for ongoing pain reliefchro laura back pain, hand pain but now also some neuropathy Diabetic p eripheral neuropathy 897283017 E11.40 chronicnot es more pain in hands, carpal tunnelhas PRN gabapentin but uses this mainly for back pain [id number] Kathy May MD FP, [facility], [address] [place] [address] 04/29/2024 12:00:39 04/29/2024 12:49:53 Diabetes mellitus 42799068 E11.9 A1Cat goal 7.2attribu ami good control to good diet and regular exercisebi kes six miles most days, takes walksf/u six mono med chagnes Essential hypertension 91497180 I10 close to goal on recheckgoa l < 130/80noti ng at home can be up to 140 often, like every 3-4th checkwill increase lisinopril to 30 mghe will keep checkingf/ u if not improving f/u 6 mo at wellness routine Hypothyroidism 40056741 E03.9 in rangenot sx Rheumatoid arthritis [address] Webb owing and txunder control Diabetic p eripheral neuropathy 640250847 E11.40 chronichad confirmato ry neurologic testing w Dr Gonzalez with recent w/u for muscle wasting of hands Spinal melodie nosis in cervical region 74127606 M48.02 severe C3-4 and C5-6noting sx in UE and LEmuscle wasting, balance issueshas PT referralne eds laminectom y, neurosurge on at [place] wants to schedulept wants to see Dr Julian again, has appt in June, sent records and hoping to talk w him sooner. [id number] Nagi Whitman , PT Physical Therapy, [facility] [address] [place] [address] 06/09/2024 11:22:41 06/11/2024 10:17:55 Spinal stenosis in cervical region 58235937 M48.02 78 year old {{female m robert*}} with findings most consistent with {{acute ch ronic* rec urrent}} Progressiv e upper and lower extremity weakness now attributab le to cervical myelopathy from stenosis. Today we establishe d some baseline measures and also reviewed prior exercises. I have given him some exercises for his hands address some newly found weaknesses and stiffness there. No other change to exercise. We will see him back after surgery if indicated by his surgeon. [id number] Nagi Whitman , PT Physical Therapy, [facility] [address] [place] [address] 08/18/2024 09:55:52 08/20/2024 14:48:00 Cervical spondylosis 262959429 M47.812 79 year old {{female m robert*}} [...] Without limitation s due to upper extremity weakness Clinical Goals:1. Demonstrat e symmetric pain free active, passive and resisted motions of the {{neck and upper extremitie s* shoulde r elbow, forearm and wrist trun k and lower extremitie s hip knee ankle}}. 2. Demonstrat e sufficient muscular endurance to meet functional demands. Treatment Plan: Patient to return for {{4 6* 8 1 0}} visits over {{4 8 12*} } weeks. We expect significan t change in pain, impairment and function in this time frame.Lisa tment to Include as appropriat e: therapeuti c exercise (05021), manual therapy (11123), therapeuti c activity (90639), gait training (03512), neuromuscu lar reeducatio n (28648), mechanical traction (28967) [id number] Nagi Whitman , PT Physical Therapy, [address] [address] 08/25/2024 10:29:19 08/28/2024 08:19:05 Cervical spondylosis 066787292 M47.812 79 year old {{female m robert*}} [...] Without limitation s due to upper extremity weakness Clinical Goals:1. Demonstrat e symmetric pain free active, passive and resisted motions of the {{neck and upper extremitie s* shoulde r elbow, forearm and wrist trun k and lower extremitie s hip knee ankle}}. 2. Demonstrat e sufficient muscular endurance to meet functional demands. Treatment Plan: Patient to return for {{4 6* 8 1 0}} visits over {{4 8 12*} } weeks. We expect significan t change in pain, impairment and function in this time frame.Lisa tment to Include as appropriat e: therapeuti c exercise (98880), manual therapy (26247), therapeuti c activity (18517), gait training (62873), neuromuscu lar reeducatio n (98503), mechanical traction (63587) [id number] Nagi Whitman , PT Physical Therapy, [address] [address] 08/27/2024 11:28:00 08/27/2024 13:48:52 Cervical spondylosis 758532332 M47.812 79 year old {{female m robert*}} [...] Without limitation s due to upper extremity weakness Clinical Goals:1. Demonstrat e symmetric pain free active, passive and resisted motions of the {{neck and upper extremitie s* shoulde r elbow, forearm and wrist trun k and lower extremitie s hip knee ankle}}. 2. Demonstrat e sufficient muscular endurance to meet functional demands. Treatment Plan: Patient to return for {{4 6* 8 1 0}} visits over {{4 8 12*} } weeks. We expect significan t change in pain, impairment and function in this time frame.Lisa tment to Include as appropriat e: therapeuti c exercise (90785), manual therapy (19405), therapeuti c activity (11888), gait training (87518), neuromuscu lar reeducatio n (57018), mechanical traction (39314) [id number] Nagi Whitman , PT Physical Therapy, [address] [address] 09/01/2024 09:55:46 09/01/2024 14:40:54 Cervical spondylosis 509357240 M47.812 79 year old {{female m robert*}} [...] Without limitation s due to upper extremity weakness Clinical Goals:1. Demonstrat e symmetric pain free active, passive and resisted motions of the {{neck and upper extremitie s* shoulde r elbow, forearm and wrist trun k and lower extremitie s hip knee ankle}}. 2. Demonstrat e sufficient muscular endurance to meet functional demands. Treatment Plan: Patient to return for {{4 6* 8 1 0}} visits over {{4 8 12*} } weeks. We expect significan t change in pain, impairment and function in this time frame.Lisa tment to Include as appropriat e: therapeuti c exercise (92196), manual therapy (87335), therapeuti c activity (13604), gait training (81955), neuromuscu lar reeducatio n (15781), mechanical traction (75338) [id number] Nagi Whitman , PT Physical Therapy, [address] [address] 09/03/2024 11:52:00 09/03/2024 15:21:32 Cervical spondylosis 679615940 M47.812 79 year old {{female m robert*}} [...] Without limitation s due to upper extremity weakness Clinical Goals:1. Demonstrat e symmetric pain free active, passive and resisted motions of the {{neck and upper extremitie s* shoulde r elbow, forearm and wrist trun k and lower extremitie s hip knee ankle}}. 2. Demonstrat e sufficient muscular endurance to meet functional demands. Treatment Plan: Patient to return for {{4 6* 8 1 0}} visits over {{4 8 12*} } weeks. We expect significan t change in pain, impairment and function in this time frame.Lisa tment to Include as appropriat e: therapeuti c exercise (08771), manual therapy (25887), therapeuti c activity (69439), gait training (17306), neuromuscu lar reeducatio n (01957), mechanical traction (31373) [id number] Nagi Whitman , PT Physical Therapy, [address] [address] 09/08/2024 10:24:31 09/08/2024 12:43:04 Cervical spondylosis 108415554 M47.812 79 year old {{female m robert*}} [...] s and functional limitation s as outlined below. Patient Goals:To be able to Push, pull, lift, reach and carry as well as grasp for ADLs and recreation Without limitation s due to upper extremity [id number] Patient is performing a home exercise program without change in hand function. He is going to have further evaluation with occupation al therapy. To be able to walk community distances without loss of balance and to be able to climb stairs without the use of a rail.09/08 distance is improving. Patient continues to need a walking pole to assist with balance. Stairclimb ing continues to be difficult. We will continue these goals Clinical Goals:1. Demonstrat e symmetric pain free active, passive and resisted motions of the {{neck and upper extremitie s* shoulde r elbow, forearm and wrist trun k and lower extremitie s hip knee ankle}}. 2. Demonstrat e sufficient muscular endurance to meet functional demands. 3. Demonstrat e symmetric pain-free active, passive and resisted motions of the lower extremity. 4. Demonstrat e single leg balance of 10 seconds on each leg.2023 balance and lower extremity strength is not yet at goal we will continue these goals. Treatment Plan: Patient to return for {{4 6* 8 1 0}} visits over {{4 8 12*} } weeks. We expect significan t change in pain, impairment and function in this time frame.Lisa tment to Include as appropriat e: therapeuti c exercise (76195), manual therapy (08825), therapeuti c activity (56636), gait training (53449), neuromuscu lar reeducatio n (59875), mechanical traction (41904) [id number] Nagi Whitman , PT Physical Therapy, [address] [address] 09/15/2024 09:47:32 09/15/2024 13:15:54 Cervical spondylosis 707888741 M47.812 79 year old {{female m robert*}} [...] Without limitation s due to upper extremity weakness Clinical Goals:1. Demonstrat e symmetric pain free active, passive and resisted motions of the {{neck and upper extremitie s* shoulde r elbow, forearm and wrist trun k and lower extremitie s hip knee ankle}}. 2. Demonstrat e sufficient muscular endurance to meet functional demands. Treatment Plan: Patient to return for {{4 6* 8 1 0}} visits over {{4 8 12*} } weeks. We expect significan t change in pain, impairment and function in this time frame.Lisa tment to Include as appropriat e: therapeuti c exercise (09971), manual therapy (11198), therapeuti c activity (04921), gait training (45777), neuromuscu lar reeducatio n (47419), mechanical traction (64328) [id number] Nagi Whitman , PT Physical Therapy, [address] [address] 09/29/2024 09:50:42 09/29/2024 12:54:36 Cervical spondylosis 377091409 M47.812 79 year old {{female m robert*}} [...] Without limitation s due to upper extremity weakness Clinical Goals:1. Demonstrat e symmetric pain free active, passive and resisted motions of the {{neck and upper extremitie s* shoulde r elbow, forearm and wrist trun k and lower extremitie s hip knee ankle}}. 2. Demonstrat e sufficient muscular endurance to meet functional demands. Treatment Plan: Patient to return for {{4 6* 8 1 0}} visits over {{ 8 12*} } weeks. We expect significan t change in pain, impairment and function in this time frame.Lisa tment to Include as appropriat e: therapeuti c exercise (68344), manual therapy (69682), therapeuti c activity (36361), gait training (26726), neuromuscu lar reeducatio n (69436), mechanical traction (19388) [id number] Nagi Whitman , PT Physical Therapy, [address] [address] 10/15/2024 14:25:05 10/16/2024 12:15:46 Cervical spondylosis 434735691 M47.812 79 year old {{female m robert*}} [...] Without limitation s due to upper extremity weakness Clinical Goals:1. Demonstrat e symmetric pain free active, passive and resisted motions of the {{neck and upper extremitie s* shoulde r elbow, forearm and wrist trun k and lower extremitie s hip knee ankle}}. 2. Demonstrat e sufficient muscular endurance to meet functional demands. Treatment Plan: Patient to return for {{4 6* 8 1 0}} visits over {{ 8 12*} } weeks. We expect significan t change in pain, impairment and function in this time frame.Lisa tmesherry to Include as appropriat e: therapeuti c exercise (79139), manual therapy (71562), therapeuti c activity (48722), gait training (55520), neuromuscu lar reeducatio n (55181), mechanical traction (87452) [id number] Nagi Whitman , PT Physical Therapy, [address] [address] 11/05/2024 13:52:40 11/05/2024 14:57:03 Cervical spondylosis 636036615 M47.812 79 year old {{female m robert*}} [...] Without limitation s due to upper extremity weakness Clinical Goals:1. Demonstrat e symmetric pain free active, passive and resisted motions of the {{neck and upper extremitie s* shoulde r elbow, forearm and wrist trun k and lower extremitie s hip knee ankle}}. 2. Demonstrat e sufficient muscular endurance to meet functional demands. Treatment Plan: Patient to return for {{4 6* 8 1 0}} visits over {{4 8 12*} } weeks. We expect significan t change in pain, impairment and function in this time frame.Lisaedith szymanski to Include as appropriat e: therapeuti c exercise (69315), manual therapy (31443), therapeuti c activity (34448), gait training (48640), neuromuscu lar reeducatio n (47685), mechanical traction (52301) [id number] Kathy May MD , [facility], [address] [place] [address] 12/02/2024 10:34:06 12/02/2024 11:09:45 Posterior rhinorrhea 07731200 R09.82 sx are controlled when he uses azelastine continuere fill today Atrial fibrillation 4943 6004 I48.91 on NOACnot sxstablera te controlcar diology visits and holter this spring Diabetes mellitus 995129 09 E11.9 A1Cat goal 6.7he is staying activeeati ng welltaking medication working w his neuropathy sx Essential hypertension 54209192 I10 elevated [facility] 130/80no changes todayf/u with BP clinic in a monthcardi ology following as well Rheumatoid arthritis [address] Coronado left, will follow w Dr Harry woodruff changing from [facility] as no longer on free program and expensive, has enough until well controlled meeting Dr Ayala in December Bilateral hearing loss 86620320 H91.93 pt notes some issues, notes [facility] audiology apptear canals are clear Diabetic p eripheral neuropathy 443044857 E11.40 chroniccon firmed w EMG testingong oing issues w balancewor maisha w PTnormal DM foot exam Spinal melodie nosis in cervical region 40573714 M48.02 had four discs replacedsl ow recovery but feels he is improvedwo rking on regaining muscle and strenth in his hands [id number] Nagi Whitman , PT Physical Therapy, [facility] [address] [place] [address] 12/08/2024 09:54:51 12/10/2024 10:11:34 Cervical spondylosis 907670321 M47.812 79 year old {{female m robert*}} [...] Without limitation s due to upper extremity [id number]. We will continue to monitor this but [...] to manage this stadium stairs at the [facility] as a proxy for his balance and [...] Include as appropriat e: therapeuti c exercise (78547), manual therapy (11479), therapeuti c activity (68483), gait training (40212), neuromuscu lar reeducatio n (85446), mechanical traction (19537) [id number] Nagi Whitman , PT Physical Therapy, [facility] [address] [place] [address] 12/22/2024 12:49:14 12/22/2024 15:31:46 Cervical spondylosis 861594450 M47.812 79 year old {{female m robert*}} [...] Without limitation s due to upper extremity [id number]. We will continue to monitor this but [...] to manage this stadium stairs at the [facility] as a proxy for his balance and [...] Include as appropriat e: therapeuti c exercise (21369), manual therapy (02255), therapeuti c activity (06173), gait training (51515), neuromuscu lar reeducatio n (22594), mechanical traction (78243) [id number] Wilma Darby LPN , [facility], [address] [place] [address] 01/01/2025 10:11:35 01/04/2025 12:11:24 Essential hypertension 62154423 I10 Improved but still above goal [id number] Nagi Whitman , PT Physical Therapy, [facility] [address] [place] [address] 01/05/2025 11:29:07 01/05/2025 12:14:23 Cervical spondylosis 656589553 M47.812 79 year old {{female m robert*}} [...] Without limitation s due to upper extremity mmjuexni82. We will continue to monitor this but [...] to manage this stadium stairs at the [facility] as a proxy for his balance and [...] Include as appropriat e: therapeuti c exercise (03042), manual therapy (68733), therapeuti c activity (89893), gait training (61413), neuromuscu lar reeducatio n (63934), mechanical traction (16936) Health Concerns Section Related Observation LastModified by Organization Detai ls LastModified Time None Recorded Concern Status LastModified by Organization Details LastModified Time None Recorded Advance Directives Directive Y: Payers Encounter Date Sequence Insurance Name Policy Number Policy Kulkarni Covered Member ID Kulkarni Member ID Guarantor Name 12/02/2024 2 [place]MEDICARE SUPPLE[place]) [id number] Maxim A Cristin [id number] Maxim A Cristin 12/02/2024 1 [place] [employer] Maxim A Cristin [id number] Maxim A Cristin 12/08/2024 2 [place]MEDIC[place] SUPPLEMENT) [id number] Maxim A Cristin [id number] Maxim A Cristin 12/08/2024 1 [place] [employer] Maxim A Cristin [id number] Maxim A Cristin 12/22/2024 2 [place]MEDICARE SUPPLE[place]) [id number] Maxim A Cristin [id number] Maxim Holcombe 12/22/2024 1 [place] [employer] Maxim Holcombe [id number] Maxim Holcombe 01/01/2025 2 [place]: [place] BCBS (MEDICARE SUPPLEMENT) [id number] Maxim Holcombe [id number] Maxim Bryan Cristin 01/01/2025 1 [place] [employer] Maxim Holcombe [id number] Maxim Bryan Cristin 01/05/2025 2 BS-[place]: ANTHEM [facility] (MEDICARE SUPPLEMENT) [id number] Maxim Holcombe [id number] Maxim Holcombe 01/05/2025 1 [place] Maxim Holcombe [id number] Maxim Amaral Notes Date Note Type Note Provider Name and Address Organization Details Recorded Time 12/02/2024 text/html had discectomy i n cervical vertebrae, anterior approach - he noted that it was harder to swallow normally after this and took four months to recovery, states it was a mess in there from C2-C7, Dr Julian replaced 4 discs, he is still recovering, his hands were really affected, has muscle wasting in his hands, has been doing PT with Nagi Whitman, balance, neuropathy mgmt, and feels he is making progress and has hand therapist over at [facility] to see if he can get some muscles back in this handsa rough year, spine and 2 carpal tunnel surgerieshe feels he is on the upswing on Humira for RA and it is not longer free, Dr Coronado left November 24 and there is a new doctor replacement, Dr Andre Hernandez is so expensive, he might consider other tx optionshas f/u with Dr Ayala in Decemberblood work has been good for a long timehe doesn't have RA sxhe has enough Humira to last until Junehas OA in his handsagain working with hand therapist, told to sleep in isotoner compression gloves w/o finger tips and it helps, because he was having night pain DM is under controlhas had a few desserts over the past week and notices how this affects his blood sugar Dr Calderon cardiology has him coming in in February for holter and EKG routinebut everything has been goodBP at home 130/70shigher heredenies cp, sob, swelling, fatigue, hadoing six miles a day on recumbent bike and walking on average 4000 steps a daystaying active uses azelastine for PND w effect has loose stool every 5-7 dayshas had this for yearsjust happens for a day and then okay for a week or sohasn't tried metamucil going to see audiology next weeknoting hearing is less, starting to notice some deterioration in crowded or busy roomwife really notes she keeps having to repeat herselfeasy to be distracted by other background sounds Kathy May MD [address] [place] [address], [phone], [facility] 12/02/2024 11:13:38 12/08/2024 text/html PT Initial Eval*Reported bypatient.History: ief complaint: [...] change in his hand strength. Symptom intensity:average 03/04 Symptom duration:constantly Symptom change:symptoms are not changing [...] depressedDaily progress note*Reported bypatient.How are you feeling?improving (Slowly still seeing improvements. Hand muscles are getting better. Balance slightly improved. Walking 43, 4400 steps a day); I had family visiting at [place] and missed an appointment . shoulder an neck are getting looser. Hands are the same and balance feels a little better. Home program:Performing regularly; some days at greater than 6K. Stadium steps about the same Patient Specific Functional Score:{{10 20 30 40 50 60* 70 80 90 100} } Percent limitation in Use of hands{{10 20 30 40 5 0 60 70* 80 90 100}} Percent limitation in Walking/balance Nagi Whitman, PT [address] [place], [address], [facility] 12/10/2024 08:49:27 12/22/2024 text/html Patient Specific Functional Score:{{10 20 30 40 50 60* 70 80 90 100} } Percent limitation in Use of hands{{10 20 30 40 5 0 60 70* 80 90 100}} Percent limitation in Walking/balance Nagi Whitman, PT [address] [place], [address], [facility] 12/22/2024 13:36:44 12/22/2024 text/html PT Initial Eval*Reported bypatient.History:[facility] complaint: (Upper extremity weakness, lower extremity weakness [...] change in his hand strength. Symptom intensity:average 03/04 Symptom duration:constantly Symptom change:symptoms are not changing [...] depressedDaily progress note*Reported bypatient.How are you feeling?improving (over the past week something just clicked with my balance. Hand strength is improving as well.) Home program:Performing regularly; steps decreased because of weather 3K. 6 miles on the bike every day. Stadium steps are getting easier going up. In the house I can come down the last few steps with less arm support. Nagi Whitman, PT [address] [facility], [place], [address], [facility] 12/22/2024 13:36:44 01/01/2025 text/html The patient had a blood [...] seek ER eval if developing these sx Wilma Darby LPN [facility] 01/01/2025 10:44:08 01/05/2025 text/html PT Initial Eval*Reported bypatient.History:[facility] complaint: (Upper extremity weakness, lower extremity weakness [...] change in his hand strength. Symptom intensity:average 03/04 Symptom duration:constantly Symptom change:symptoms are not changing [...] limitation in Walking/balance Nagi Whitman, PT [address] [facility], [place], [address], [facility] 01/05/2025 12:12:35
--- OUTSIDE RECORDS SUMMARY | 2025-01-12 09:59 | XMS_ITS | Continuity of Care Document ---
Author Organization [facility], Physical Therapy, [facility] Address [address] [place] [address] Care Team Providers Care Director Of Healthcare Systems Name Role Phone KATHY MAY Primary Care Provider [phone] DAVID MAHONEY Sports Medicine NAGI WHITMAN Physical Therapist [phone] VY SEGURA [employer] JOHNNA HESS Syrup Mixer Helper GUSTAVO ZIMMER Cigarette Maker BETH JULIAN Neurologist Assessment Encounter Date Assessment Date Assessment LastModified by Organization Details LastModified Time 12/22/2024 12/22/2024 11 PT sessions since initial [...] as below. [email or web address] Not available 12/22/2024 13:36:33 Plan of Treatment Reminders Order Date Submit Date Provider Last Modified By Organization Details Last Modified Time Details Appointments Follow Up, 2024 02:30P Blair Roy n, PT Not available Not available Not available Follow Up, 2024 10:00A Blair Roy n, PT Not available Not available Not available LAB Follow-Up 2024 08:35A [facility] Lab Not available Not available Not available Wellness Visit 30 2024 11:15A M Kathy May MD Not [...] Organization Details Recorded Time Atrial fibrillati on 57982219 Active 2014 Not Available [facility] 4 01:33:21 Diabetes mellitus 84303556 Active 2015 Not Available [facility] 4 01:33:22 Essential hypertensi on 79989320 Active 2015 Not Available [facility] 4 01:33:21 Hyperlipid emia 39974609 Active 2015 Not Available [facility] 4 01:33:21 Osteoarthr itis 071325871 Active 2015 neck, knee, hands Not Available [facility] 4 01:33:21 Hypothyroi dism 20357493 Active 2015 Not Available [facility] 4 01:33:21 Seasonal allergy 920855151 Active 2016 Not Available [facility] 4 01:33:21 Elbow joint pain 259909749 Completed 201610/01/2019 Kathy May MD [address] [place] [address], [phone] [place] [address] 9 14:21:17 Benign prostatic hyperplasi a with outflow obstructio n 894087004 Active 2017 Not Available [facility] 4 01:33:21 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 742088308 Active 2018 Not Available [facility] 4 01:33:21 Degenerati on of lumbar interverte bral disc 11342140 Active 2019 Not Available [facility] 4 01:33:21 Obstructiv e sleep apnea syndrome 79011032 Active 2020 Not Available [facility] 4 01:33:22 Polymyalgi a rheumatica 39701697 Completed 202211/14/2023 Kathy May MD [address] [place] [address], [phone] , [facility] 3 10:50:43 Rheumatoid arthritis 47193722 Active 2022 Not Available [facility] 4 01:33:21 Spinal stenosis in cervical region 33527493 Active 2023 Kathy May MD [address] [place] [address], [address] , [facility] 5 11:06:55 Diabetic peripheral neuropathy 467059548 Active 2024 Kathy May MD [address] [place] [address], [address] , [facility] 5 11:04:54 Notes:Some problems listed i n Documents: #[id number], #[id number], #[id number], #[id number] could not be added to this patient's chart. Please review these documents and add these problems to the patient's chart manually as needed. Problem Notes None recorded. Procedures Surgical History Date Name Laterality Status Provider Name and Address Organization Details Recorded Time 01/05/20 47183: Neuromuscular Re-Education completed Nagi Whitman, PT [address] [place], [address], [facility] 01/05/2025 12:12:05 01/05/20 Treatment and Advice completed Nagi Whitman, PT [address] [place], [address], [facility] 01/05/2025 12:06:35 12/22/19 25 91526: Neuromuscular Re-Education completed Nagi Whitman, PT [address] [place], [address], [facility] 12/22/2024 13:34:51 12/22/19 25 Treatment and Advice completed Nagi Whitman, PT [address] [place], [address], [facility] 12/22/2024 13:18:54 12/08/19 45408: Therapeutic Exercise completed Nagi Whitman, PT [address] [place], [address], [facility] 12/08/2024 10:31:52 12/08/19 Treatment and Advice completed Nagi Whitman, PT [address] [place], [address], [facility] 12/08/2024 10:28:48 11/05/20 29366: Therapeutic Exercise completed Nagi Whitman, PT [address] [place], [address], [facility] 11/05/2024 14:35:21 11/05/20 Treatment and Advice completed Nagi Whitman, PT [address] [place], [address], [facility] 11/05/2024 14:34:16 10/15/20 74978: Therapeutic Exercise completed Nagi Whitman, PT [address] [place], [address], [facility] 10/15/2024 18:20:55 10/15/20 Treatment and Advice completed Nagi Whitman, PT [address] [place], [address], [facility] 10/15/2024 15:04:06 09/29/20 61987: Therapeutic Exercise completed Nagi Whitman, PT [address] [place], [address], [facility] 09/29/2024 10:37:55 09/29/20 Treatment and Advice completed Nagi Whitman, PT [address] [place], [address], [facility] 09/29/2024 10:02:22 09/15/20 22400: Therapeutic Exercise completed Nagi Whitman, PT [address] [place], [address], [facility] 09/15/2024 10:35:38 09/15/20 Treatment and Advice completed Nagi Whitman, PT [address] [place], [address], [facility] 09/15/2024 10:29:49 09/08/20 72641: Therapeutic Exercise completed Nagi Whitman, PT [address] [place], [address], [facility] 09/08/2024 11:02:59 09/08/20 Treatment and Advice completed Nagi Whitman, PT [address] [place], [address], [facility] 09/08/2024 10:57:27 09/03/20 03063: Therapeutic Exercise completed Nagi Whitman, PT [address] [place], [address], [facility] 09/03/2024 14:23:47 09/03/20 Treatment and Advice completed Nagi Whitman, PT [address] [place], [address], [facility] 09/03/2024 12:12:37 09/01/20 42420: Therapeutic Exercise completed Nagi Whitman, PT [address] [place], [address], [facility] 09/01/2024 10:29:53 09/01/20 Treatment and Advice completed Nagi Whitman, PT [address] [place], [address], [facility] 09/01/2024 10:00:08 08/27/20 13853: Therapeutic Exercise completed Nagi Whitman, PT [address] [place], [address], [facility] 08/27/2024 12:04:26 08/27/20 Treatment and Advice completed Nagi Whitman, PT [address] [place], [address], [facility] 08/27/2024 12:00:40 08/25/20 42612: Therapeutic Exercise completed Nagi Whitman, PT [address] [place], [address], [facility] 08/27/2024 10:53:41 08/25/20 Treatment and Advice completed Nagi Whitman, PT [address] [place], [address], [facility] 08/25/2024 11:11:05 08/18/20 Physical Activity Counselling completed Nagi Whitman, PT [address] [place], [address], [facility] 08/18/2024 10:10:16 08/18/20 69531: PT Eval Low Complexity completed Nagi Whitman, PT [address] [place], [address], [facility] 08/18/2024 10:10:16 08/18/20 Treatment and Advice completed Nagi Whitman, PT [address] [place], [address], [facility] 08/18/2024 10:42:21 07/25/20 17 Gina - Colonoscopy completed Johnna Fuentes MD [address] [place] [address], [address], [facility] 07/25/2017 10:13:24 05/08/20 17 Knee (Right) Injection completed ALVINA Arambula [address] [place] [address], [address], [facility] 05/08/2017 10:37:00 11/05/20 16 11828: Manual Therapy completed Murali Smith, PT, DPT, CSCS [address] [place] [address], [address], [facility] 11/05/2016 10:04:55 10/22/20 16 46547: Manual Therapy completed Murali Smith, PT, DPT, CSCS [address] [place] [address], [address], [facility] 10/22/2016 10:55:58 10/11/20 16 56025: Therapeutic Exercise completed Murali Smith, PT, DPT, [address], [address], [facility] 10/11/2016 09:31:04 10/11/20 16 35359: Manual Therapy completed Murali Smith, PT, DPT, CSCS [address] [place] [address], [address], [facility] 10/11/2016 09:31:09 10/01/20 16 22597: PT Evaluation completed Murali Smith, PT, DPT, [address], [address], [facility] 10/01/2016 13:41:44 09/25/20 16 Medicare Wellness Visit completed Kathy May MD [address] [place] [address], [address], [facility] 09/25/2016 13:54:23 Imaging Results None recorded. Procedure [...] e 137 mcg (0.1 %) nasal spray [place] 2 sprays twice a day by intranas [...] Status [facility] in 20's [facility] 09:34:03 Do You Have An [...] Or The Highest Degree You Have Received? KB71820-2 Information not available 11/13/2022 What Is Your [...] Anxious, Or Unable To Sleep At Night)? [id number] Information not available 11/13/2022 Do You Use [...] high-dose, trivalent, PF 7 completed Not Available [facility] 12/12/2019 02:21:40 Tdap 5 completed Not Available [facility] 12/06/2023 01:33:22 zoster live 4 completed Not Available [facility] 12/06/2023 01:33:22 pneumococcal, unspecified formulation 4 completed Not Available [facility] 12/06/2023 01:33:22 Pneumococcal conjugate PCV 13 5 completed Not Available [facility] 12/06/2023 01:33:22 influenza, unspecified formulation 4 completed Not Available [facility] 12/06/2023 01:33:22 Influenza, high-dose, trivalent, PF 6 completed Not Available [facility] 12/06/2023 01:33:22 pneumococcal polysaccharide PPV23 4 completed Not Available [facility] 12/06/2023 01:33:22 Influenza, split virus, quadrivalent, preservative 8 completed Not Available [facility] 12/06/2023 01:33:22 Pneumococcal conjugate PCV 13 8 completed Not Available [facility] 12/06/2023 01:33:22 Influenza, high-dose, quadrivalent, PF 0 completed Wilma Darby LPN null, [facility] 09/08/2020 14:04:25 Influenza, split virus, quadrivalent, preservative 9 completed Not Available [facility] 12/06/2023 01:33:22 Influenza, split virus, quadrivalent, preservative 9 completed Not Available [facility] 12/06/2023 01:33:22 Influenza, high-dose, quadrivalent, PF 1 completed Melissa Carney COOKER HELPER null, [facility] 09/06/2021 14:03:17 COVID-19, mRNA, LNP-S, PF, 30 mcg/0.3 mL dose 1 completed Not Available [facility] 12/06/2023 01:33:22 COVID-19, mRNA, LNP-S, PF, 30 mcg/0.3 mL dose 1 completed Not Available [facility] 12/06/2023 01:33:22 COVID-19, mRNA, LNP-S, PF, 30 mcg/0.3 mL dose 1 completed Not Available [facility] 12/06/2023 01:33:22 COVID-19, mRNA, LNP-S, PF, 30 mcg/0.3 mL dose 2 completed Not Available [facility] 12/06/2023 01:33:22 COVID-19, mRNA, LNP-S, PF, 30 mcg/0.3 mL dose 2 completed Not Available [facility] 12/06/2023 01:33:22 Influenza, split virus, quadrivalent, preservative 2 completed Not Available [facility] 12/06/2023 01:33:22 SARS-COV-2 (COVID-19) vaccine, UNSPECIFIED 3 completed Not Available [facility] 12/06/2023 01:33:22 influenza, unspecified formulation 3 completed Not Available [facility] 12/06/2023 01:33:22 zoster, unspecified formulation 3 completed Not Available [facility] 12/06/2023 01:33:22 Past Encounters Encounter ID Performer Location Encounter Start Date Encounter Closed Date Diagnosis/Indication Diagnosis SNOMED-CT Code Diagnosis ICD10 Code Diagnosis Note [id number] Kathy May MD , [facility], OFFICE [address] [place] [address] 12/02/2024 10:34:06 12/02/2024 11:09:45 Posterior rhinorrhea 11364848 R09.82 sx are controlled when he uses azelastine continuere fill today Atrial fibrillation 4943 6004 I48.91 on NOACnot sxstablera te controlcar diology visits and holter this spring Diabetes mellitus 196808 09 E11.9 A1Cat goal 6.7he is staying activeeati ng welltaking medication working w his neuropathy sx Essential hypertension 59148747 I10 elevated here todayat goal at [facility] in < 130/80no changes todayf/u with BP clinic in a monthcardi ology following as well Rheumatoid arthritis [address] Coronado left, will follow w Dr Harry woodruff changing from Humira as no longer on free program and expensive, has enough until well controlled meeting Dr Ayala in December Bilateral hearing loss 58870327 H91.93 pt notes some issues, notes [facility] apptear canals are clear Diabetic p eripheral neuropathy 233791956 E11.40 chroniccon firmed w EMG testingong oing issues w balancewor maisha w PTnormal DM foot exam Spinal melodie nosis in cervical region 08703569 M48.02 had four discs replacedsl ow recovery but feels he is improvedwo rking on regaining muscle and strenth in his hands [id number] Nagi Whitman , PT Physical Therapy, [facility] [address] [place] [address] 12/08/2024 09:54:51 12/10/2024 10:11:34 Cervical spondylosis 073066106 M47.812 79 year old {{female m robert*}} [...] Without limitation s due to upper extremity [id number]. We will continue to monitor this but [...] to manage this stadium stairs at the [facility] as a proxy for [...] Include as appropriat e: therapeuti c exercise (01378), manual therapy (32085), therapeuti c activity (13422), gait training (93086), neuromuscu lar reeducatio n (62039), mechanical traction (72133) [id number] Nagi Whitman , PT Physical Therapy, [address] [address] 12/22/2024 12:49:14 12/22/2024 15:31:46 Cervical spondylosis 627491265 M47.812 79 year old {{female m robert*}} [...] Without limitation s due to upper extremity [id number]. We will continue to monitor this but [...] to manage this stadium stairs at the [facility] as a proxy for [...] Include as appropriat e: therapeuti c exercise (90543), manual therapy (38851), therapeuti c activity (25208), gait training (24563), neuromuscu lar reeducatio n (01316), mechanical traction (93904) Health Concerns Section Related Observation LastModified by Organization Detai ls LastModified Time None Recorded Concern Status LastModified by Organization Details LastModified Time None Recorded Payers Encounter Date Sequence Insurance Name Policy Number Policy Kulkarni Covered Member ID Kulkarni Member ID Guarantor Name 12/22/2024 2 [place]ELIA YOUNGBLOODBS (MEDICARE SUPPLEMENT) [id number] Maxim Irvin Cristin [id number] Maxim Irvin Cristin 12/22/2024 1 [place]: [employer] Maxim Irvin Cristin [id number] Maxim Amaral Notes Date Note Type Note Provider Name and Address Organization Details Recorded Time 12/22/2024 text/html Patient Specific Functional Score:{{10 20 30 40 50 60* 70 80 90 100} } Percent limitation in Use of hands{{10 20 30 40 5 0 60 70* 80 90 100}} Percent limitation in Walking/balance Nagi Whitman, PT [address] [place], [address], [facility] 12/22/2024 13:36:44 12/22/2024 text/html PT Initial Eval*Reported bypatient.History:[facility] complaint: (Upper extremity weakness, lower extremity [...] less arm support. Nagi Whitman, PT [address] [place], [address], [facility] 12/22/2024 13:36:44
== END 2025-01-12 09:55 | disposition home or self-care (01) ==
PROVIDERS: PCP Family Medicine; Visit Provider Student in an Organized Health Care Education/Training Program
DX: M06.00 Rheumatoid arthritis without rheumatoid factor, unspecified site (principal); R79.82 Elevated C-reactive protein (CRP); D61.818 Other pancytopenia; Z51.81 Encounter for therapeutic drug level monitoring; Z79.620 Long term (current) use of immunosuppressive biologic
CPT/HCPCS: 99214; G2211

== ENCOUNTER → 2025-01-12 09:16 | Outpatient (BNVA) | payer MEDICARE, BC, SELFPAY | PROVIDERS: PCP Family Medicine; Visit Provider Student in an Organized Health Care Education/Training Program | DX: M06.00 Rheumatoid arthritis without rheumatoid factor, unspecified site (principal); R79.82 Elevated C-reactive protein (CRP); D61.818 Other pancytopenia; Z51.81 Encounter for therapeutic drug level monitoring; Z79.620 Long term (current) use of immunosuppressive biologic; Z98.1 Arthrodesis status | CPT/HCPCS: 99212 ==

== ENCOUNTER 2025-01-26 08:44 | Outpatient (REF) | payer MEDICARE, BC, SELFPAY ==
--- OUTSIDE RECORDS SUMMARY | 2025-01-26 09:21 | XMS_ITS | Continuity of Care Document ---
Author Organization [facility], Physical Therapy, [facility] Address [address] [place] [address] Care Team Providers Care Baker Biscuit Name Role Phone KATHY MAY Primary Care Provider DAVID MAHONEY Sports Medicine NAGI WHITMAN Physical Therapist VY SEGURA Lens Grinder And Polisher JOHNNA HESS Presser Hand GUSTAVO ZIMMER Sole Molding Machine Operator BETH JULIAN Neurologist Assessment Encounter Date Assessment [...] Not available Not available LAB Follow-Up 2024 09:00A [facility] Lab Not available Not available Not available Follow Up, 2024 10:00A M Nagi Roy n, PT Not available Not available Not available Wellness Visit 2024 04:00P Blair May MD Not available Not available Not available Lab None recorded. Referral None recorded. Procedures None recorded. Surgeries None recorded. Imaging None recorded. Medication Orders None recorded. Patient TargetsNo targets recorded. Patient InstructionsNo instructions recorded. Reason for Referral None Reported. Problems Name Problem SNOMED Code Status Onset Date Resolution Date Notes Provider Name and Address Organization Details Recorded Time Atrial fibrillati on 30685924 Active 2014 Not Available [facility] 4 01:33:21 Diabetes mellitus 83944705 Active 2015 Not Available [facility] 4 01:33:22 Essential hypertensi on 68443067 Active 2015 Not Available [facility] 4 01:33:21 Hyperlipid emia 20076313 Active 2015 Not Available [facility] 4 01:33:21 Osteoarthr itis 617532799 Active 2015 neck, knee, hands Not Available [facility] 4 01:33:21 Hypothyroi dism 74448117 Active 2015 Not Available [facility] 4 01:33:21 Seasonal allergy 342926458 Active 2016 Not Available [facility] 4 01:33:21 Elbow joint pain 038942373 Completed 201610/01/2019 Kathy May MD [address] [place] [address], [phone] , [facility] 9 14:21:17 Benign prostatic hyperplasi a with outflow obstructio n 558996186 Active 2017 Not Available [facility] 4 01:33:21 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 224008856 Active 2018 Not Available [facility] 4 01:33:21 Degenerati on of lumbar interverte bral disc 52693178 Active 2019 Not Available [facility] 4 01:33:21 Obstructiv e sleep apnea syndrome 44580661 Active 2020 Not Available [facility] 4 01:33:22 Polymyalgi a rheumatica 10915927 Completed 202211/14/2023 Kathy May MD [address] [place] [address], [phone] , [facility] 3 10:50:43 Rheumatoid arthritis 22279458 Active 2022 Not Available [facility] 4 01:33:21 Spinal stenosis in cervical region 67615151 Active 2023 Kathy May MD [address] [place] [address], [address] , [facility] 5 11:06:55 Diabetic peripheral neuropathy 210207724 Active 2024 Kathy May MD [address] [place] [address], [address] , [facility] 5 11:04:54 Notes:Some problems listed i n Documents: #[id number], #[id number], #[id number], #[id number] could not be added to this patient's chart. Please review these documents and add these problems to the patient's chart manually as needed. Problem Notes None recorded. Procedures Surgical History Date Name Laterality Status Provider Name and Address Organization Details Recorded Time 01/05/20 52698: Neuromuscular Re-Education completed Nagi Whitman, PT [address] [place], [address], [facility] 01/05/2025 12:12:05 01/05/20 Treatment and Advice completed Nagi Whitman, PT [address] [place], [address], [facility] 01/05/2025 12:06:35 12/22/19 60323: Neuromuscular Re-Education completed Nagi Whitman, PT [address] [place], [address], [facility] 12/22/2024 13:34:51 12/22/19 Treatment and Advice completed Nagi Whitman, PT [address] [place], [address], [facility] 12/22/2024 13:18:54 12/08/19 34717: Therapeutic Exercise completed Nagi Whitman, PT [address] [place], [address], [facility] 12/08/2024 10:31:52 12/08/19 Treatment and Advice completed Nagi Whitman, PT [address] [place], [address], [facility] 12/08/2024 10:28:48 11/05/20 81624: Therapeutic Exercise completed Nagi Whitman, PT [address] [place], [address], [facility] 11/05/2024 14:35:21 11/05/20 Treatment and Advice completed Nagi Whitman, PT [address] [place], [address], [facility] 11/05/2024 14:34:16 10/15/20 79611: Therapeutic Exercise completed Nagi Whitman, PT [address] [place], [address], [facility] 10/15/2024 18:20:55 10/15/20 Treatment and Advice completed Nagi Whitman, PT [address] [place], [address], [facility] 10/15/2024 15:04:06 09/29/20 90871: Therapeutic Exercise completed Nagi Whitman, PT [address] [place], [address], [facility] 09/29/2024 10:37:55 09/29/20 Treatment and Advice completed Nagi Whitman, PT [address] [place], [address], [facility] 09/29/2024 10:02:22 09/15/20 42165: Therapeutic Exercise completed Nagi Whitman, PT [address] [place], [address], [facility] 09/15/2024 10:35:38 09/15/20 Treatment and Advice completed Nagi Whitman, PT [address] [place], [address], [facility] 09/15/2024 10:29:49 09/08/20 32651: Therapeutic Exercise completed Nagi Whitman, PT [address] [place], [address], [facility] 09/08/2024 11:02:59 09/08/20 Treatment and Advice completed Nagi Whitman, PT [address] [place], [address], [facility] 09/08/2024 10:57:27 09/03/20 22677: Therapeutic Exercise completed Nagi Whitman, PT [address] [place], [address], [facility] 09/03/2024 14:23:47 09/03/20 Treatment and Advice completed Nagi Whitman, PT [address] [place], [address], [facility] 09/03/2024 12:12:37 09/01/20 25388: Therapeutic Exercise completed Nagi Whitman, PT [address] [place], [address], [facility] 09/01/2024 10:29:53 09/01/20 Treatment and Advice completed Nagi Whitman, PT [address] [place], [address], [facility] 09/01/2024 10:00:08 08/27/20 14426: Therapeutic Exercise completed Nagi Whitman, PT [address] [place], [address], [facility] 08/27/2024 12:04:26 08/27/20 Treatment and Advice completed Nagi Whitman, PT [address] [place], [address], [facility] 08/27/2024 12:00:40 08/25/20 29728: Therapeutic Exercise completed Nagi Whitman, PT [address] [place], [address], [facility] 08/27/2024 10:53:41 08/25/20 Treatment and Advice completed Nagi Whitman, PT [address] [place], [address], [facility] 08/25/2024 11:11:05 08/18/20 Physical Activity Counselling completed Nagi Whitman, PT [address] [place], [address], [facility] 08/18/2024 10:10:16 08/18/20 73573: PT Eval Low Complexity completed Nagi Whitman, PT [address] [place], [address], [facility] 08/18/2024 10:10:16 08/18/20 Treatment and Advice completed Nagi Whitman, PT [address] [place], [address], [facility] 08/18/2024 10:42:21 07/25/20 17 Gina - Colonoscopy completed Johnna Fuentes MD [address] [place], [address], [facility] 07/25/2017 10:13:24 05/08/20 17 Knee (Right) Injection completed ALVINA Arambula [address] [place], [address], [facility] 05/08/2017 10:37:00 11/05/20 16 10245: Manual Therapy completed Murali Smith, PT, DPT, CSCS [address] [place] [address], [address], [facility] 11/05/2016 10:04:55 10/22/20 16 97295: Manual Therapy completed Murali Smith, PT, DPT, CSCS [address] [place] [address], [address], [facility] 10/22/2016 10:55:58 10/11/20 16 95221: Therapeutic Exercise completed Murali Smith, PT, DPT, CSCS [address] [place] [address], [address], [facility] 10/11/2016 09:31:04 10/11/20 16 54009: Manual Therapy completed Murali Smith PT, DPT, CSCS [address] [place], [address], [facility] 10/11/2016 09:31:09 10/01/20 16 29503: PT Evaluation completed Murali Smith, PT, DPT, CSCS [address] [place], [address], [facility] 10/01/2016 13:41:44 09/25/20 16 Medicare Wellness Visit completed Kathy May MD [address] [place], [address], [facility] 09/25/2016 13:54:23 Imaging Results None [...] e 137 mcg (0.1 %) nasal spray [place] 2 sprays twice a day by intranas [...] Former Smoker in 20's only Tete Melgar [facility] 04/28/2016 09:34:03 Do You Have An Advance [...] Or The Highest Degree You Have Received? [id number] Information not available 11/13/2022 What Is Your [...] Anxious, Or Unable To Sleep At Night)? [id number] Information not available 11/13/2022 Do You Use [...] available 2015 15:15:32 Medical History Condition Response Osteoarthritis Y Atrial Fibrillation Y Hypothyroid Y rosacea Y Diabetes Type II Y Hypertension Y Immunizations Vaccine Type Date Status Note Provider Nam e and Address Organization Details Recorded Time Influenza, high-dose, trivalent, PF 7 completed Not Available [facility] 12/12/2019 02:21:40 Tdap 5 completed Not Available [facility] 12/06/2023 01:33:22 zoster live 4 completed Not Available [facility] 12/06/2023 01:33:22 pneumococcal, unspecified formulation 4 completed Not Available [facility] 12/06/2023 01:33:22 Pneumococcal conjugate PCV 13 5 completed Not Available [facility] 12/06/2023 01:33:22 influenza, unspecified formulation 4 completed Not Available [facility] 12/06/2023 01:33:22 Influenza, high-dose, trivalent, PF 6 completed Not Available [facility] 12/06/2023 01:33:22 pneumococcal polysaccharide PPV23 4 completed Not Available [facility] 12/06/2023 01:33:22 Influenza, split virus, quadrivalent, preservative 8 completed Not Available [facility] 12/06/2023 01:33:22 Pneumococcal conjugate PCV 13 8 completed Not Available [facility] 12/06/2023 01:33:22 Influenza, high-dose, quadrivalent, PF 0 completed Wilma Darby LPN null, [facility] 09/08/2020 14:04:25 Influenza, split virus, quadrivalent, preservative 9 completed Not Available [facility] 12/06/2023 01:33:22 Influenza, split virus, quadrivalent, preservative 9 completed Not Available [facility] 12/06/2023 01:33:22 Influenza, high-dose, quadrivalent, PF 1 completed Melissa Carney RN BSN null, [facility] 09/06/2021 14:03:17 COVID-19, mRNA, LNP-S, PF, 30 mcg/0.3 mL dose 1 completed Not Available [facility] 12/06/2023 01:33:22 COVID-19, mRNA, LNP-S, PF, 30 mcg/0.3 mL dose 1 completed Not Available [facility] 12/06/2023 01:33:22 COVID-19, mRNA, LNP-S, PF, 30 mcg/0.3 mL dose 1 completed Not Available [facility] 12/06/2023 01:33:22 COVID-19, mRNA, LNP-S, PF, 30 mcg/0.3 mL dose 2 completed Not Available [facility] 12/06/2023 01:33:22 COVID-19, mRNA, LNP-S, PF, 30 mcg/0.3 mL dose 2 completed Not Available [facility] 12/06/2023 01:33:22 Influenza, split virus, quadrivalent, preservative 2 completed Not Available [facility] 12/06/2023 01:33:22 SARS-COV-2 (COVID-19) vaccine, UNSPECIFIED 3 completed Not Available [facility] 12/06/2023 01:33:22 influenza, unspecified formulation 3 completed Not Available [facility] 12/06/2023 01:33:22 zoster, unspecified formulation 3 completed Not Available [facility] 12/06/2023 01:33:22 Past Encounters Encounter ID Performer Location Encounter Start Date Encounter Closed Date Diagnosis/Indication Diagnosis SNOMED-CT Code Diagnosis ICD10 Code Diagnosis Note [id number] Nagi Whitman , PT Physical Therapy, [address] [address] 12/08/2024 09:54:51 12/10/2024 10:11:34 Cervical spondylosis 460248055 M47.812 79 year old {{female m robert*}} [...] Without limitation s due to upper extremity [id number]. We will continue to monitor this but [...] to manage this stadium stairs at the [facility] as a proxy for his balance and [...] Include as appropriat e: therapeuti c exercise (31604), manual therapy (86652), therapeuti c activity (03375), gait training (99784), neuromuscu lar reeducatio n (16446), mechanical traction (34798) [id number] Nagi Whitman , PT Physical Therapy, [address] [address] 12/22/2024 12:49:14 12/22/2024 15:31:46 Cervical spondylosis 139839636 M47.812 79 year old {{female m robert*}} [...] Without limitation s due to upper extremity [id number]. We will continue to monitor this but [...] to manage this stadium stairs at the [facility] as a proxy for his balance and [...] Include as appropriat e: therapeuti c exercise (91516), manual therapy (48658), therapeuti c activity (37404), gait training (49633), neuromuscu lar reeducatio n (25402), mechanical traction (05773) [id number] Wilma Darby LPN , [facility], OFFICE [address] [place] [address] 01/01/2025 10:11:35 01/04/2025 12:11:24 Essential hypertension 67541093 I10 Improved but still above goal [id number] Nagi Whitman , PT Physical Therapy, [facility] [address] [place] [address] 01/05/2025 11:29:07 01/05/2025 12:14:23 Cervical spondylosis 607183421 M47.812 79 year old {{female m robert*}} [...] Without limitation s due to upper extremity grxrowar34. We will continue to monitor this but [...] to manage this stadium stairs at the [facility] as a proxy for his balance and [...] Include as appropriat e: therapeuti c exercise (57310), manual therapy (52508), therapeuti c activity (72664), gait training (34940), neuromuscu lar reeducatio n (28537), mechanical traction (92060) Health Concerns Section Related Observation LastModified by Organization Detai ls LastModified Time None Recorded Concern Status LastModified by Organization Details LastModified Time None Recorded Payers Encounter Date Sequence Insurance Name Policy Number Policy Kulkarni Covered Member ID Kulkarni Member ID Guarantor Name 01/05/2025 2 [place]MEDICARE SUPPLEMENT) [id number] Maxim Amaral [id number] Maxim Amaral 01/05/2025 1 MED[place]: [employer] Maxim Amaral [id number] Maxim Amaral Notes Date Note Type [...] limitation in Walking/balance Nagi Whitman, PT [address] [facility], [place], [address], [facility] 01/05/2025 12:12:35
--- OUTSIDE RECORDS SUMMARY | 2025-01-26 09:21 | XMS_ITS | Data Portability ---
Author Organization [facility], [facility] Address [address] [place] [address] Care Team Providers Care Hay Rake Operator Name Role Phone KATHY MAY Primary Care Provider DAVID BOYD Sports Medicine NAGI WHITMAN Physical Therapist [phone] VY SEGURA Shift Supervisor [phone] JOHNNA HESS Flavor Extractor GUSTAVO ZIMMER Artificial Limb Maker BETH JULIAN Neurologist Assessment Encounter Date [...] Not available LAB Follow-Up 2024 09:00A M [facility] Lab Not available Not available Not available Follow Up, 2024 10:00A M Nagi Roy n, PT Not available Not available Not available Wellness Visit 2024 04:00P M Kathy May MD Not available Not available Not available Lab None recorded. Referral None recorded. Procedures None recorded. Surgeries None recorded. Imaging None recorded. Medication Orders azelastin e 137 mcg (0.1 %) nasal spray 2024 025 [facility], [address] [place] [address], [id number], 12/02/2024 11:04:16 Patient TargetsNo targets recorded. Patient Instructions Encounter Date Encounter Id Patient Instructions Last Modified By Organization Details Last Modified Time 12/02/2024 [id number] try using psylli um fiber, metamucil, 1-2 times a day. use the powder version in 8 ounces or more of water or juice, shake in a ball jar or similar and drink quickly. [email or web address] Not available 12/02/2024 11:02:20 After a discussi [...] 4.15 K/??L 4.23-9 .07 low Not Available [address], [address], 11/12/2024 10:34:57 11/12/20 24 11/12/2024 CBC RBC 4.24 M/??L 4.63-6 .08 low Not Available [address], [address], 11/12/2024 10:34:57 11/12/20 24 11/12/2024 CBC HGB 12.9 g/dL 13.7-1 7.5 low Not Available [address], [address], 11/12/2024 10:34:57 11/12/20 24 11/12/2024 CBC HCT 40.2 % 40.1-5 1.0 Not Available [address], [address], 11/12/2024 10:34:57 11/12/20 24 11/12/2024 CBC MCV 94.8 fL 79.0-9 2.2 high Not Available [address], [address], 11/12/2024 10:34:57 11/12/20 24 11/12/2024 CBC MCH 30.4 pg 25.7-3 2.2 Not Available [address], [address], 11/12/2024 10:34:57 11/12/20 24 11/12/2024 CBC MCHC 32.1 g/dL 32.3-3 6.5 low Not Available [address], [address], 11/12/2024 10:34:57 11/12/20 24 11/12/2024 CBC plt 194 K/??L 163-33 7 Not Available [address], [address], 11/12/2024 10:34:57 11/12/20 24 11/12/2024 CBC MPV 10.4 fL 9.4-12 .4 Not Available [address], [address], 11/12/2024 10:34:57 11/12/20 24 11/12/2024 CBC neut% 51.8 % 34.0-6 7.9 Not Available [address], [address], 11/12/2024 10:34:57 11/12/20 24 11/12/2024 CBC neut# 2.15 1.78-5 .38 Not Available [address], [address], 11/12/2024 10:34:57 11/12/20 24 11/12/2024 CBC lymph % 28.0 % 21.8-5 3.1 Not Available [address], [address], 11/12/2024 10:34:57 11/12/20 24 11/12/2024 CBC lymph # 1.16 K/??L 1.32-3 .57 low Not Available [address], [address], 11/12/2024 10:34:57 11/12/20 24 11/12/2024 CBC mono% 11.3 % 5.3-12 .2 Not Available [address], [address], 11/12/2024 10:34:57 11/12/20 24 11/12/2024 CBC mono# 0.47 0.30-0 .82 Not Available [address], [address], 11/12/2024 10:34:57 11/12/20 24 11/12/2024 CBC eo% 6.5 % 0.8-7. 0 Not Available [address], [address], 11/12/2024 10:34:57 11/12/20 24 11/12/2024 CBC eo# 0.27 0.04-0 .54 Not Available [address], [address], 11/12/2024 10:34:57 11/12/20 24 11/12/2024 CBC baso% 1.9 % 0.2-1. 2 high Not Available [address], [address], 11/12/2024 10:34:57 11/12/20 24 11/12/2024 CBC baso# 0.08 0.00-0 .08 Not Available [address], [address], 11/12/2024 10:34:57 11/12/20 24 11/12/2024 CBC RDW-CV 12.5 % 11.6-1 4.4 Not Available [address], [address], 11/12/2024 10:34:57 11/12/20 24 11/12/2024 CBC Ig% 0.500 % 0.000- 1.500 Ig % >0.5 Indic ates possi ble Left Shift Not Available [address], [address], 11/12/2024 10:34:57 11/12/20 24 11/12/2024 CBC Ig# 0.020 0.000- 0.093 Not Available [address], [address], 11/12/2024 10:34:57 11/12/20 24 11/12/2024 CBC NRBC% 0.0 % 0.0-0. 2 Not Available [address], [address], 11/12/2024 10:34:57 11/12/20 24 11/12/2024 CBC NRBC# 0.000 0.000- 0.012 Not Available [address], [address], 11/12/2024 10:34:57 11/12/20 24 11/12/2024 HGB A1C [...] furth er confi rmati on Not Available [address], [address], 11/12/2024 10:50:57 11/12/20 24 11/12/2024 HGB A1C estimated average glucose 145.6 mg/dL Not Available [address], [address], 11/12/2024 10:50:57 11/12/20 24 11/12/2024 COMP. METAB OLIC PANEL glucose 212 mg/dL 70-100 high Not Available [address], [address], 11/12/2024 16:23:50 11/12/20 24 11/12/2024 COMP. METAB OLIC PANEL BUN 18 mg/dL 7-18 Not Available [address], [address], 11/12/2024 16:23:50 11/12/20 24 11/12/2024 COMP. METAB OLIC PANEL creatinine 1.1 mg/dL 0.8-1. 3 Not Available [address], [address], 11/12/2024 16:23:50 11/12/20 24 11/12/2024 COMP. METAB OLIC PANEL B/C 16.4 ratio Not Available [address], [address], 11/12/2024 16:23:50 11/12/20 24 11/12/2024 COMP. METAB [...] be used in pregn flavio. Not Available [address], [address], 11/12/2024 16:23:50 11/12/20 24 11/12/2024 COMP. METAB OLIC PANEL sodium 146 mmol/ L 136-14 5 high Not Available [address], [address], 11/12/2024 16:23:50 11/12/20 24 11/12/2024 COMP. METAB OLIC PANEL potassium 5.0 mmol/ L 3.5-5. 1 Not Available [address], [address], 11/12/2024 16:23:50 11/12/20 24 11/12/2024 COMP. METAB OLIC PANEL chloride 107 mmol/ L 96-107 Not Available [address], [address], 11/12/2024 16:23:50 11/12/20 24 11/12/2024 COMP. METAB OLIC PANEL anion gap 10.0 5.0-15 .0 Not Available [address], [address], 11/12/2024 16:23:50 11/12/20 24 11/12/2024 COMP. METAB OLIC PANEL CO2 29 mmol/ L 21-32 Not Available [address], [address], 11/12/2024 16:23:50 11/12/20 24 11/12/2024 COMP. METAB OLIC PANEL calcium 9.5 mg/dL 8.5-10 .3 Not Available [address], [address], 11/12/2024 16:23:50 11/12/20 24 11/12/2024 COMP. METAB OLIC PANEL total protein 6.5 g/dL 6.4-8. 2 Not Available [address], [address], 11/12/2024 16:23:50 11/12/20 24 11/12/2024 COMP. METAB OLIC PANEL albumin 3.6 g/dL 3.4-5. 0 Not Available [address], [address], 11/12/2024 16:23:50 11/12/20 24 11/12/2024 COMP. METAB OLIC PANEL globulin 2.9 g/dL Not Available [address], [address], 11/12/2024 16:23:50 11/12/20 24 11/12/2024 COMP. METAB OLIC PANEL A/G 1.2 ratio 0.8-2. 0 Not Available [address], [address], 11/12/2024 16:23:50 11/12/20 24 11/12/2024 COMP. METAB OLIC PANEL total bilirubin 0.70 mg/dL 0.00-1 .00 Not Available [address], [address], 11/12/2024 16:23:50 11/12/20 24 11/12/2024 COMP. METAB OLIC PANEL AST 29 U/L 0-37 Not Available [address], [address], 11/12/2024 16:23:50 11/12/20 24 11/12/2024 COMP. METAB OLIC PANEL ALT 48 U/L 6-63 Not Available [address], [address], 11/12/2024 16:23:50 11/12/20 24 11/12/2024 COMP. METAB OLIC PANEL alk. phos. 84 U/L 50-136 Not Available [address], [address], 11/12/2024 16:23:50 11/12/20 24 11/13/2024 MICRO ALBUM IN/CR EATIN INE RATIO PANEL , URINE microalbumin 100.5 mg/L 1.3-20 .0 high VERD= Verif ied by Dilut ion. Not Available [address], [address], 11/13/2024 09:15:55 11/12/20 24 11/13/2024 MICRO ALBUM IN/CR EATIN INE RATIO PANEL , URINE creatinine urine 122.1 mg/dL 30.0-1 25.0 Not Available [address], [address], 11/13/2024 09:15:55 11/12/20 24 11/13/2024 MICRO ALBUM IN/CR EATIN INE RATIO PANEL , URINE microalb/cre at ratio 82.3 mg/g_ creat 0.0-29 .0 high Not Available [address], [address], 11/13/2024 09:15:55 Result Notes None recorded. Problems Name Problem SNOMED Code Status Onset Date Resolution Date Notes Provider Name and Address Organization Details Recorded Time Atrial fibrillati on 48260835 Active 2014 Not Available [facility] 4 01:33:21 Diabetes mellitus 09530475 Active 2015 Not Available [facility] 4 01:33:22 Essential hypertensi on 41828969 Active 2015 Not Available [facility] 4 01:33:21 Hyperlipid emia 95273595 Active 2015 Not Available [facility] 4 01:33:21 Osteoarthr itis 798868628 Active 2015 neck, knee, hands Not Available [facility] 4 01:33:21 Hypothyroi dism 21712540 Active 2015 Not Available [facility] 4 01:33:21 Seasonal allergy 155919732 Active 2016 Not Available [facility] 4 01:33:21 Elbow joint pain 105904820 Completed 201610/01/2019 Kathy May MD [address] [place] [address], [address] , [facility] 9 14:21:17 Benign prostatic hyperplasi a with outflow obstructio n 728402299 Active 2017 Not Available [facility] 4 01:33:21 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 070849185 Active 2018 Not Available [facility] 4 01:33:21 Degenerati on of lumbar interverte bral disc 76340430 Active 2019 Not Available [facility] 4 01:33:21 Obstructiv e sleep apnea syndrome 53358006 Active 05/04/ 2021 Not Available [facility] 4 01:33:22 Polymyalgi a rheumatica 37427109 Completed 202211/14/2023 Kathy May MD [address] [place] [address], [address] , [facility] 3 10:50:43 Rheumatoid arthritis 74016288 Active 2022 Not Available [facility] 4 01:33:21 Spinal stenosis in cervical region 89673425 Active 2023 Kathy May MD [address] [place] [address], [address] , [facility] 5 11:06:55 Diabetic peripheral neuropathy 743810120 Active 2024 Kathy May MD [address] [place] [address], [address] , [facility] 5 11:04:54 Notes:Some problems listed i n Documents: #[id number], #[id number], #[id number], #[id number] could not be added to this patient's chart. Please review these documents and add these problems to the patient's chart manually as needed. Problem Notes None recorded. Procedures Surgical History Date Name Laterality Status Provider Name and Address Organization Details Recorded Time 01/05/20 25 77334: Neuromuscular Re-Education completed Nagi Whitman, PT [address] [place], [address], [facility] 01/05/2025 12:12:05 01/05/20 Treatment and Advice completed Nagi Whitman, PT [address] [place], [address], [facility] 01/05/2025 12:06:35 12/22/19 25 98995: Neuromuscular Re-Education completed Nagi Whitman, PT [address] [place], [address], [facility] 12/22/2024 13:34:51 12/22/19 25 Treatment and Advice completed Nagi Whitman, PT [address] [place], [address], [facility] 12/22/2024 13:18:54 12/08/19 43610: Therapeutic Exercise completed Nagi Whitman, PT [address] [place], [address], [facility] 12/08/2024 10:31:52 12/08/19 Treatment and Advice completed Nagi Whitman, PT [address] [place], [address], [facility] 12/08/2024 10:28:48 11/05/20 12109: Therapeutic Exercise completed Nagi Whitman, PT [address] [place], [address], [facility] 11/05/2024 14:35:21 11/05/20 Treatment and Advice completed Nagi Whitman, PT [address] [place], [address], [facility] 11/05/2024 14:34:16 10/15/20 30593: Therapeutic Exercise completed Nagi Whitman, PT [address] [place], [address], [facility] 10/15/2024 18:20:55 10/15/20 Treatment and Advice completed Nagi Whitman, PT [address] [place], [address], [facility] 10/15/2024 15:04:06 09/29/20 12730: Therapeutic Exercise completed Nagi Whitman, PT [address] [place], [address], [facility] 09/29/2024 10:37:55 09/29/20 Treatment and Advice completed Nagi Whitman, PT [address] [place], [address], [facility] 09/29/2024 10:02:22 09/15/20 27061: Therapeutic Exercise completed Nagi Whitamn, PT [address] [place], [address], [facility] 09/15/2024 10:35:38 09/15/20 24 Treatment and Advice completed Nagi Whitman, PT [address] [place], [address], [facility] 09/15/2024 10:29:49 09/08/20 71919: Therapeutic Exercise completed Nagi Whitman, PT [address] [place], [address], [facility] 09/08/2024 11:02:59 09/08/20 Treatment and Advice completed Nagi Whitman, PT [address] [place], [address], [facility] 09/08/2024 10:57:27 09/03/20 38599: Therapeutic Exercise completed Nagi Whitman, PT [address] [place], [address], [facility] 09/03/2024 14:23:47 09/03/20 Treatment and Advice completed Nagi Whitman, PT [address] [place], [address], [facility] 09/03/2024 12:12:37 09/01/20 24285: Therapeutic Exercise completed Nagi Whitman, PT [address] [place], [address], [facility] 09/01/2024 10:29:53 09/01/20 Treatment and Advice completed Nagi Whitman, PT [address] [place], [address], [facility] 09/01/2024 10:00:08 08/27/20 38588: Therapeutic Exercise completed Nagi Whitman, PT [address] [place], [address], [facility] 08/27/2024 12:04:26 08/27/20 Treatment and Advice completed Nagi Whitman, PT [address] [place], [address], [facility] 08/27/2024 12:00:40 08/25/20 15897: Therapeutic Exercise completed Nagi Whitman, PT [address] [place], [address], [facility] 08/27/2024 10:53:41 08/25/20 Treatment and Advice completed Nagi Whitman, PT [address] [place], [address], [facility] 08/25/2024 11:11:05 08/18/20 Physical Activity Counselling completed Nagi Whitman, PT [address] [place], [address], [facility] 08/18/2024 10:10:16 08/18/20 04671: PT Eval Low Complexity completed Nagi Whitman, PT [address] [place], [address], [facility] 08/18/2024 10:10:16 08/18/20 Treatment and Advice completed Nagi Whitman, PT [address] [place], [address], [facility] 08/18/2024 10:42:21 07/25/20 17 Gina - Colonoscopy completed Johnna Fuentes MD [address] [place] [address], [address], [facility] 07/25/2017 10:13:24 05/08/20 17 Knee (Right) Injection completed ALVINA Arambula [address] [place] [address], [address], [facility] 05/08/2017 10:37:00 11/05/20 16 61166: Manual Therapy completed Murali Smith, PT, DPT, [address], [address], [facility] 11/05/2016 10:04:55 10/22/20 16 40687: Manual Therapy completed Murali Smith, PT, DPT, [address], [address], [facility] 10/22/2016 10:55:58 10/11/20 16 91265: Therapeutic Exercise completed Murali Smith, PT, DPT, [address], [address], [facility] 10/11/2016 09:31:04 10/11/20 16 82207: Manual Therapy completed Murali Smith, PT, DPT, [address], [address], [facility] 10/11/2016 09:31:09 10/01/20 16 91927: PT Evaluation completed Murali Smith, PT, DPT, [address], [address], [facility] 10/01/2016 13:41:44 09/25/20 16 Medicare Wellness Visit completed Kathy May MD [address] [place] [address], [address], [facility] 09/25/2016 13:54:23 Imaging Results None recorded. Procedure [...] e 137 mcg (0.1 %) nasal spray [place] 2 sprays twice a day by intranas [...] Not Available Not Avai lable Fluzone High-Dose 5761-0343 (PF) 180 mcg/0.5 mL intramusc ular syringe [...] Updated DateTime 5 180.85 cm 23.9 kg/m2 29532.9 9 g 98 % 98 % 62 /min 162 mm[Hg] 70 mm[Hg] Kathy Tinajero MA [facility] 5 10:45:11 Date Recorded Body height Heart rate Systolic blood pressure Diastolic blood pressure Provider Name and Address Organization Details Last Updated DateTime 01/01/2025 180.85 cm 58 /min 142 mm[Hg] 74 mm[Hg] Wilma Darby LPN [facility] 01/01/2025 10:43:24 Social History Question Answer Notes LastModified by Organization Details LastModified Time Tobacco Smoking Status Former Smoker in 20's only Tete palomino [facility] 04/28/2016 09:34:03 Do You Have [...] Or The Highest Degree You Have Received? [id number] Information not available 11/13/2022 What Is Your [...] Anxious, Or Unable To Sleep At Night)? [id number] Information not available 11/13/2022 Do You Use [...] high-dose, trivalent, PF 7 completed Not Available [facility] 12/12/2019 02:21:40 Tdap 5 completed Not Available [facility] 12/06/2023 01:33:22 zoster live 4 completed Not Available [facility] 12/06/2023 01:33:22 pneumococcal, unspecified formulation 4 completed Not Available [facility] 12/06/2023 01:33:22 Pneumococcal conjugate PCV 13 5 completed Not Available [facility] 12/06/2023 01:33:22 influenza, unspecified formulation 4 completed Not Available [facility] 12/06/2023 01:33:22 Influenza, high-dose, trivalent, PF 6 completed Not Available [facility] 12/06/2023 01:33:22 pneumococcal polysaccharide PPV23 4 completed Not Available [facility] 12/06/2023 01:33:22 Influenza, split virus, quadrivalent, preservative 8 completed Not Available [facility] 12/06/2023 01:33:22 Pneumococcal conjugate PCV 13 8 completed Not Available [facility] 12/06/2023 01:33:22 Influenza, high-dose, quadrivalent, PF 0 completed Wilma Darby LPN null, [facility] 09/08/2020 14:04:25 Influenza, split virus, quadrivalent, preservative 9 completed Not Available [facility] 12/06/2023 01:33:22 Influenza, split virus, quadrivalent, preservative 9 completed Not Available [facility] 12/06/2023 01:33:22 Influenza, high-dose, quadrivalent, PF 1 completed Melissa Carney RN BSN null, [facility] 09/06/2021 14:03:17 COVID-19, mRNA, LNP-S, PF, 30 mcg/0.3 mL dose 1 completed Not Available [facility] 12/06/2023 01:33:22 COVID-19, mRNA, LNP-S, PF, 30 mcg/0.3 mL dose 1 completed Not Available [facility] 12/06/2023 01:33:22 COVID-19, mRNA, LNP-S, PF, 30 mcg/0.3 mL dose 1 completed Not Available [facility] 12/06/2023 01:33:22 COVID-19, mRNA, LNP-S, PF, 30 mcg/0.3 mL dose 2 completed Not Available [facility] 12/06/2023 01:33:22 COVID-19, mRNA, LNP-S, PF, 30 mcg/0.3 mL dose 2 completed Not Available [facility] 12/06/2023 01:33:22 Influenza, split virus, quadrivalent, preservative 2 completed Not Available [facility] 12/06/2023 01:33:22 SARS-COV-2 (COVID-19) vaccine, UNSPECIFIED 3 completed Not Available [facility] 12/06/2023 01:33:22 influenza, unspecified formulation 3 completed Not Available [facility] 12/06/2023 01:33:22 zoster, unspecified formulation 3 completed Not Available [facility] 12/06/2023 01:33:22 Past Encounters Encounter ID Performer Location Encounter Start Date Encounter Closed Date Diagnosis/Indication Diagnosis SNOMED-CT Code Diagnosis ICD10 Code Diagnosis Note [id number] Kathy May MD , [facility], [address] [place] [address] 04/28/2016 09:19:26 04/28/2016 10:25:43 Cough 77459241 R05 pt presents with URI sx and now ongoing cough and PND lungs sounds ronchorous and diminished but improved after updraft with duoneb no evidence of bacterial infection, sinus/ear/ pna tx below has apt in two weeks sooner f/u if not improving instr to avoid constipati on with use of codiene [id number] Kathy May MD , [facility], [address] [place] [address] 05/09/2016 14:40:00 05/09/2016 16:16:30 Screening for malignant neoplasm of colon 395169756 Z12.11 Hyperlipidemia 22566245 E78.5 pt reports good conrol, on statin, will get lipid panel Essential hypertension 65994274 I10 good control; labs orderedinc reasing metoprolol for tachycardi a Diabetes mellitus 665192 09 E11.9 reprots good controldie t/meds/exe rciselabs [...] 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 11031681 D53.1 pt takes B12, by hx was deficient/ anemicwill screen and f/u needs for ongoing supplement ation Hypothyroidism 89010038 E03.9 pt reports that often gets off kilter and needs dose adjustment [id number] Kathy May MD , [facility], [address] [place] [address] 05/15/2016 15:28:45 05/15/2016 16:52:11 Atrial flutter 0968466 I48.92 pt with more bouts of atrial [...] with ptkeep Dr Bravo apt next week [id number] Kathy May MD , [facility], [address] [place] [address] 06/12/2016 10:43:50 06/12/2016 11:20:05 Hypothyroidism 30413738 E03.9 refill meds, stableTSH 3.66 Hyperlipidemia 08771041 E78.5 stableLDL 97, HDL 41 Essential hypertension 88553799 I10 at goalnormal renal function Atrial fibrillation 4943 6004 I48.91 [facility] this afternoonE F 35% recent imagingnor mal holter other than afib/flutt ersx with fatigue and edemawill f/u [facility]'s notes and planpt aware Diabetes mellitus 307238 09 E11.9 A1C was highpt has been focussed on heartplan to get back to checking sugars at homewatche s diet, takes medswillin g to meet with diabetes ed in future Screening for malignant neoplasm of colon 647663523 Z12.11 will consider colonoscop y after a fib tx resolved Allergic rhinitis 765819 04 J30.9 discussed neti potdust mite ppxthen consider OTC flonase [id number] Kathy May MD , [facility], [address] [place] [address] 09/25/2016 13:26:11 09/25/2016 14:20:20 Screening for disorder 493763458 Z11.59 Adult heal th examination 706342686 Z00.00 see Risk Assessment and Lifestyle Change Counseling section above Counseling 098537204 Z71 .9 Hypothyroidism 38842835 E03.9 stableannu al TSH Hyperlipidemia 95338422 E78.5 stablecont inue statin Essential hypertension 07598739 I10 not at goal here or hometc with Dr Lane ed add amlodipine 2.5 mg daily Atrial fibrillation [address] Linn moreno on decreasing amiodarone advised ongoing ETOH less than one a dayf/u [facility] in October, echo Diabetes mellitus 618631 09 E11.9 at goalhas made improvemen ts with diet, metformin, exerciseco ntinue A1C biannualha d eye exam December but need local ophthorefe rral madesome evidence neuropathy on examstable renal function Osteoarthritis 933302239 M19.90 neck, hands, armshas had relief with PT for neck painwould like referral [id number] Murali Smith, PT, DPT, CSC[facility] Physical Therapy, [facility] [address] [place] [address] 10/01/2016 12:53:39 10/01/2016 13:52:46 Neck pain 17217366 M54.2 Pt is a {{71# }} y.o. [...] with no more than 4/10 c/o pain shelter goals: Pain: Decrease to 2/10 Strength: Strong DNF contractio n with functional activities ROM: Maintain full cervical AROM Joint Mobility: Increase upper cervical downglidin g on the L to be equal bilaterall y Other: Pt will be able to complete all ADLs/IADLs and recreation al activities with no more than 2/10 c/o pain [id number] Murali Smith, PT, DPT, [facility] Physical Therapy, [address] [address] 10/11/2016 09:23:33 10/11/2016 13:00:06 Neck pain 79840586 M54.2 Pt still with moderate stiffness/ hypomobili ty of L sided cervical segments in downglidin g, improved with manual techniques . At end of treatment pt noted feeling better. [id number] Murali Smith, PT, DPT, [facility] Physical Therapy, [address] [address] 10/22/2016 09:29:35 10/22/2016 12:43:22 Neck pain 27919100 M54.2 Pt with improving joint mobility on the L however still considerab le difference between R segments. [id number] Murali Smith, PT, DPT, [facility] Physical Therapy, [facility] [address] [place] [address] 11/05/2016 09:29:49 11/05/2016 11:00:28 Neck pain 96480783 M54.2 Pt no longer with soft tissue nor joint restrictio ns. Pt demonstrat es HEP correctly and pain-free. Pt understood concepts of safety in a way to manage and potential future pain. Pt is aware of how to contact PT again if needed. [id number] Kathy May MD , [facility], [address] [place] [address] 04/02/2017 10:39:25 04/02/2017 11:16:48 Hypothyroidism 99426738 E03.9 stableannu al TSH Seasonal allergy 1735393 04 J30.2 has had intermitte nt sxusing fluticason eavoids other meds given cardiac issues previously hasn't needed proair Hyperlipidemia 07538042 E78.5 stablecont inue statin Essential hypertension 22522435 I10 not at goalgenera lly has higher levelsstat aurora gupta was okay with thisno med changes todaywill call Dr Bravo and marsha tate also recommend daily ASA Diabetes mellitus 596063 09 E11.9 stop pioglitazo neat goalhome checks lower rangef/u PSA this Atrial fibrillation 4943 6004 I48.91 has been stable, no sxmeds reduced with cardiology Prostate s pecific antigen above reference range 222854971 R97.20 up from 2.97 in 2015no new sxpt prefers monitoring now will repeat 6 monthsagre e urology referral if persistant [id number] Kathy May MD , [facility], [address] [place] [address] 05/02/2017 16:40:21 05/02/2017 17:34:57 Elbow joint pain 011050853 M25.529 enc to try exercises givenenc to try alternate computer station and/or use gel pad for armcould do PTf/u if sx worseningr est and ice PRN Osteoarthritis 082228326 M19.90 neck, hands, armsschedu le for right knee cortisone injection, had one over a year ago with relief, hopes to buy some more time with another injectioni nstr to do PT exercises daily?if could be developing a psoriatic component to arthritis though generally consistent pattern with use and age Essential hypertension 53326505 I10 not at goal but lower on recheckpt follows with Dr Bravo; spoke with him this weekDr Lawrence's goals for patient to stay in 140-150 systolic okaypressu res at [facility] have been betterhas f/u Dr Bravo in falltaSocialBrowse meds, no SE no changes in POC today taught 4-7-8 breathing today [id number] ALVINA Arambula , [facility], [address] [place] [address] 05/08/2017 09:38:25 05/08/2017 10:32:43 Screening for malignant neoplasm of colon 160673552 Z12.11 Referral for a DIRECT booked colonoscop y. This patient is a healthy ASA Class 1 or 2 patient (only mild systemic disease), or a STABLE, well controlled insulin dependent diabetic. They do not have serious cardiac disease ie DC/angiopl asty within 1 year, symptomati c CHF; renal failure with CKD 4 or 5; take Coumadin, Plavix, Aggrenox, etc. Osteoarthr itis of knee 784765620 M17.9 Right, Cortisone injection given into R knee, tolerated procedure well, post injection instructio ns given. F/U PRN [id number] Kathy May MD , [facility], [address] [place] [address] 07/23/2017 15:35:27 07/23/2017 16:18:48 Active or passive immunization 877408414 Z23 Elbow joint pain 6828024 01 M25.529 ongoing issue forearm and elbowsome associatio n with golfsome on leftnow willing to start PTprefers E'ton Essential hypertension 42294219 I10 at goalno changes today Diabetes mellitus 536555 09 E11.9 as he is having se with metformin we will redcue and change to long actingone sx low overall great controlclo se f/u at [facility] Atrial fibrillation 4943 6004 I48.91 has been stable, no sx Thoracic back pain 12815 8004 M54.6 new BL back paintight on examlimite d forward flexionadv ised stretching , back hygienef/u at [facility] [id number] Johnna Fuentes MD [facility], [facility] [address] [place] [address] 07/25/2017 08:15:48 07/25/2017 11:46:57 [id number] Minda Pendleton Ms, PT Physical Therapy, [address] [address] 08/08/2017 10:25:05 08/08/2017 13:19:32 Pain in elbow 26502521 M25.115 [id number] Minda Pendleton Ms, PT Physical Therapy, [address] [address] 08/12/2017 09:01:44 08/12/2017 12:21:00 Pain in elbow 30047089 M25.973 [id number] Minda Pendleton Ms, PT Physical Therapy, [address] [address] 08/19/2017 08:58:20 08/20/2017 07:19:13 Pain in elbow 92763270 M25.646 [id number] Minda Pendleton Ms, PT Physical Therapy, [address] [address] 08/26/2017 09:24:52 08/26/2017 13:46:46 Pain in elbow 64071098 M25.966 [id number] Minda Pendleton Ms, PT Physical Therapy, [address] [address] 09/03/2017 09:28:05 09/03/2017 11:12:39 Pain in elbow 11061897 M25.599 [id number] Minda Pendleton Ms, PT Physical Therapy, [address] [address] 09/12/2017 11:01:37 09/12/2017 13:46:46 Pain in elbow 39556167 M25.171 [id number] Minda Pendleton Ms, PT Physical Therapy, [address] [address] 09/20/2017 09:10:23 09/20/2017 11:46:22 Pain in elbow 71762822 M25.190 [id number] Kathy May MD , [facility], [address] [place] [address] 09/26/2017 10:07:57 09/26/2017 10:46:45 Adult health examination 157517122 Z00.00 see Risk Assessment and Lifestyle Change Counseling section above Counseling 084849104 Z71 .9 Screening for disorder 450226405 Z11.59 Atrial fibrillation 4943 6004 I48.91 has been stable, no sxseeing Dr Bravo who is retiring, he will see another provider in that officerece nt visitno med changesref ill metoprolol Hypothyroidism 21636125 E03.9 stableannu al TSH Osteoarthritis 293987548 M19.90 would like repeat injection right kneeaware this is not an ongoing sustainabl e planhe will continue exercisesh as done PT will look into ortho options, synvysc in spring if needed Hyperlipidemia 48016873 E78.5 stablecont inue statin Diabetes mellitus 926967 09 E11.9 at goalwould like to be able to decrease pjlpF3h 6.5tolerat ing current dosessome microalbun iuriasome peripheral loss sensation BL feet laterally onlychecki ng blood sugars most days in AMadvised to check other times of day, can create a schedule for himself as he likes routineno med changes todayf/u 6 mo Essential hypertension 73025099 I10 at goal on recheckrev iews with Dr Bravo cardiology as wellmeds stayed the same after last visitcheck s at home no changes today [id number] Minda Pendleton Ms, PT Physical Therapy, [address] [address] 09/30/2017 09:24:27 09/30/2017 10:30:38 Pain in elbow 81651554 M25.609 [id number] Minda Pendleton Ms, PT Physical Therapy, [facility] [address] [place] [address] 10/01/2017 15:36:19 10/01/2017 15:36:34 [id number] ALVINA Arambula, [facility], [address] [place] [address] 10/08/2017 09:26:31 10/08/2017 10:13:03 Osteoarthritis of knee 654017450 M17.9 Right, Cortisone injection given into R knee, tolerated procedure well, post injection instructio ns given. F/U PRN [id number] Minda Pendleton Ms, PT Physical Therapy, [address] [address] 10/09/2017 11:43:01 10/09/2017 12:20:35 Pain in elbow 52225740 M25.183 [id number] Kathy May MD FP, [facility], [address] [place] [address] 04/02/2018 13:59:10 04/02/2018 14:40:40 Osteoarthritis 429323606 M19.90 pt has worse sx this yeartrigge red with golfgoing to see for cortisone injectionw ants to discuss other terminal gauger tx options with orthorefer raghavendra ta to iceokay periodic naproxen, not daily(pt doesn't like to take and tries to limit) Atrial fibrillation [address] Vázquez rhad ablation and continues to have intermitte nt sxhe has f/u with him in a few weeks Hyperlipidemia 54006635 E78.5 not on therapeuti c dosing of statinagre eable to increasef/ u labs in the fall Essential hypertension 48866267 I10 at goal on recheckrev iews with Dr Gurpreet charlton cardiology as welllisino pril dose reviewed at 20 mg Diabetes mellitus 186762 09 E11.9 at goal A1C 7meds are decreased and he feel much better with less GI SEhad eye examblood sugars at home goodDC pioglitazo ne as he is not taking and control is goodroutin e f/u at [facility] [id number] ALVINA Arambula, [facility], [address] [place] [address] 04/09/2018 07:26:36 04/09/2018 07:55:44 Osteoarthritis 067623719 M19.90 R knee Pain in right knee 39729 49993 21054 M25.561 Cortisone injection given into R knee, tolerated procedure well, post injection instructio ns given [id number] Kathy May MD , [facility], [address] [place] [address] 05/15/2018 10:28:42 05/15/2018 11:04:06 Essential hypertension 01838286 I10 not at goal today goal < 140/90will fu one month at visit Diabetes mellitus 435308 09 E11.9 at goal A1C 7doing wellchecki ng sugars and in good rangerouti ne f/u Osteoarthritis 310839345 M19.90 Dr Null g cortisone inj with effectgoin g to try a bracefunct ional nowconside r Synvysc in futuredefe r TKR Hyperlipidemia 35438331 E78.5 LDL not at goal for diabetesst atin was increasedf /u labs 5 months Nocturia 518295261 R35.1 see notes below Benign pro static hyperplasia with outflow obstruction 624889103 N40.1 sx BPH has [facility] it enlarged and smooth and symetrical not tenderwe will get a UAstart terazosin, discussed SE f/u one month [id number] Kathy May MD , [facility], [address] [place] [address] 06/13/2018 16:31:38 06/13/2018 16:55:46 Essential hypertension 61689069 I10 not at goal today goal < 140/90lowe r today than usualcould be due to terazosinn ot sx Osteoarthritis 050511066 M19.90 right kneeconsid ering replacemen tongoing pain after his knee injection Nocturia 566417796 R35.1 see notes below Benign pro static hyperplasia with outflow obstruction 010572034 N40.1 sx are much lessdoing very well with terazosinn o SE continue script [id number] Kathy May MD , [facility], [address] [place] [address] 09/30/2018 14:00:06 09/30/2018 14:56:20 Adult health examination 060713419 Z00.00 see Risk Assessment and Lifestyle Change Counseling section above Counseling 045784037 Z71 .9 Depression screening 171 266532 Z13.89 depression screening tool administer ed, entered into emr, scored and discussed, time greater than 7.5 minutes Benign ess ential hypertension 7135206 I10 Blood pressure at goallabs reviewedno changes Osteoarthritis 929351076 M19.90 right kneehas replacemen t scheduled for naging to be active with pain now, but walking lessNaprox en PRN, avoiding twice daily dosing and trying to to take some days off Hypothyroidism 00371265 E03.9 stableannu al TSH Mixed hyperlipidemia 267 803000 E78.2 near goalcontin ue statindiet education today Hyperlipidemia 39032595 E78.5 LDL not at goal for diabetesst atin was increasedf /u labs 5 months Essential hypertension 50938579 I10 not at goal today goal < 140/90lowe r today than usualcould be due to terazosinn ot sx Diabetes mellitus 153839 09 E11.9 slightly above goal Atrial fibrillation [address] Vázquez rhad ablation and continues to have intermitte nt sx- rare now Benign pro static hyperplasia with outflow obstruction 284558568 N40.1 ongoing sxbetter but some nights worse than othersstil l on low dose of terazosinw ill increase to five mg at HS Overweight 344331624 E66 .3 noted small gainsome LE edema today, dependentw ill followgoal working on DM mgmthealth y diet reviewed [id number] Samra Farooq NP , [facility], [address] [place] [address] 11/27/2018 10:19:36 11/27/2018 11:09:14 Preoperative cardiovascular examination 063892757 Z01.810 cleared for TKR. Osteoarthr itis of knee 228938774 M17.11 per ortho Paroxysmal atrial fibrillation 377072400 I48.0 in a fib today - paroxysmal -=should not interfere with surgery unless rapid a fib. Will need post op anticoagul ation per your protocol. We have cardiac clearance from Dr Rodríguez . Diabetes mellitus 547405 09 E11.9 stable [id number] Kathy May MD , [facility], [address] [place] [address] 12/30/2018 14:27:23 12/31/2018 13:36:01 Irregular heart rate 718471810 R00.8 EKG done & reviewed by HS. Pt. sent to [facility] ED. [id number] Kathy May MD FP, [facility], [address] [place] [address] 01/07/2019 12:03:49 01/07/2019 12:42:06 Diabetes mellitus 06714682 E11.9 were high in hospitalba ck down into 110-120 range Atrial fibrillation [address] Vázquez rand Dr Will jacobo to schedule ablationno t sxirregula r/rate controlled today Constipation 25579132 K5 9.00 with oxycodone use and decreased mobility after knee replacemen tboosting fiber and fluidsusin g MOM and sennaadvis ed to keep regular, don't get bound up, goal daily mvmt w/o strainingm edication to achieve goalsadd colace and /or miralax Essential hypertension 74552549 I10 at goallowerr ecent hypotensio n with afibnot sx History of right total knee replacement 1867691642 018660 Z96.651 progressin g as expectedus ing oxycodone and tylenol for painfeels he still has painnot bad at nightdoesn 't like SE of oxy (constipat ion and tired and a bit forgetful/ confused)a dvised to try 1/2 dose oxy, limit as abletake tylenol three times a dayf/u with ortho as directed [id number] Kathy May MD , [facility], [address] [place] [address] 02/05/2019 14:59:14 02/06/2019 11:46:37 Essential hypertension 67085742 I10 in rangecan be higher at homefollow ed also by cardiology Atrial fibrillation 4943 6004 I48.91 and fluttersch eduling ablation for sxchecking pulsescurr ently on amiodarone 200 mg daily Diabetes mellitus 938376 09 E11.9 A1C near goalweight down with poor appetite after surgerywou ld like to keep current meds/planw atching dietagrees doesn't need to gain weighthopi ng to resume exercise routine soonokay to go to gym, for knee rehab, keep heart rate under 100 at this time until further cardiology clearancen o sx [id number] in 3 monthsf/u May 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 105421812 E11.[address] Pollock annually for monitoring have notes from 01/2018 History of right total knee replacement 5532716232 142735 Z96.651 doing wellat goals per Dr Godoy ill some swellinggr adual return to activitya few more PT sessions left Bilateral hearing loss 36453313 H91.93 pt is not concernedw tamir feels hearing is offonly mild loss higher frequency hereagree to defer audiology eval at this point [id number] Kathy May MD , [facility], [address] [place] [address] 03/31/2019 10:10:26 03/31/2019 10:33:36 Essential hypertension 60242436 I10 in rangeat goal< 130/80 Diabetes mellitus 541178 09 E11.9 A1C near goal7.1 stable meds/diete xercise increasing qhhapW8H and f/u at [facility] Hyperlipidemia 19714379 E78.5 ongoing monitoring f/u [facility] Atrial fibrillation 4943 6004 I48.91 improved post ablationf/ u April with cardiology , likely med changes then Lesion of skin of face 6078630065 06 L98.9 severy red raised lesionssig sun exposure, golfsruddy complexion referral derm eval and tx History of right total knee replacement 3803231576 269026 Z96.651 doing wellat goals per Dr Tony ashby ongoingusi ng some compressio nstill doing PTworking up to playing golfnot using pain medication s [id number] Kathy May MD , [facility], [address] [place] [address] 10/01/2019 13:53:00 10/01/2019 14:34:48 Adult health examination 804937035 Z00.00 see Risk Assessment and Lifestyle Change Counseling section above Counseling 223471924 Z71 .9 Depression screening 171 353987 Z13.89 depression screening tool administer ed, entered into emr, scored and discussed, time greater than 7.5 minutes Hypothyroidism 29904590 E03.9 stableannu al TSH Benign pro static hyperplasia with outflow obstruction 144638173 N40.1 ongoing sxbetter with terazosin Diabetes mellitus 025236 09 E11.9 A1C near goal73 stable meds/dietc ontinue curent plan Essential hypertension 43936981 I10 in rangeat goal< 130/80 Hyperlipidemia 13642772 E78.5 ongoing monitoring close to goalon statinwill increase to 80 mg Atrial fibrillation 4943 6004 I48.91 having about weekly runs with sx afterwards in afib todayabimaeli josh with cardiology rate controlled meeting about future ablation Insomnia 755483437 G47.0 0 newer issue for irina g with fit bitnotes 7 hours most nights, 7.5but often in bed longerhard er to fall asleep at nightdiscu ssed possible changescon quality assurance monitor final less coffee in morningcon quality assurance monitor final no tv or screen two hours before bedget up if not falling asleep, quiet activitygo to bed and get up 8 hours later, no matter whatconsid er melatoninf /u as needed [id number] , [facility], [address] [place] [address] 03/15/2020 14:32:58 03/16/2020 10:16:42 Pain in right hip joint 0940892848 68734 M25.551 new right hip pain, seems localized at bursahas been communicat ing w Dr Roblero who thought bursitisso me radiation down legwill do PT appt JARED and then can f/u if injection neededgoal to resume daily walksusing only Tylenol for pain, no nsaids give heart disease/an ticoag 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 195938771 E11.3299 annual visit w lora todd ng given pandemicf/ u one month VV DM mgmt Essential hypertension 22483332 I10 in rangeat goal< 130/80on home checksnot sxno changes Atrial fibrillation 4943 6004 I48.91 less frequent sx now that MICHELLE txplans still for ablation after pandemic restrictio nsDr Zan following Obstructiv e sleep apnea syndrome 32481985 G47.33 dx and txdoing wellmanagi ng CPAPnotes less cardiac sx [id number] Nagi Whitman , PT Physical Therapy, [facility] [address] [place] [address] 03/16/2020 09:55:13 03/16/2020 14:36:54 Pain in right hip joint 4018507997 12397 M25.551 74 year old {{female m robert*}} [...] Include: Therapeuti c exercise and manual therapy [id number] Nagi Whitman , PT Physical Therapy, [address] [address] 03/23/2020 10:57:39 03/24/2020 08:05:38 Pain in right hip joint 2197637897 35282 M25.551 74 year old {{female m robert*}} [...] Include: Therapeuti c exercise and manual therapy [id number] David Boyd MD Sports Medicine, [address] [place] [address] 03/24/2020 08:16:58 03/25/2020 12:00:38 Hip pain 39642474 M25.551 Rubens is a 74 yo male [...] we have an appointmen t for him. [id number] David Boyd MD Sports Medicine, [address] [place] [address] 03/29/2020 14:05:50 04/11/2020 11:41:26 Hip pain 28581851 M25.551 Rubens is a 74 yo male [...] with me as needed for further care. [id number] Nagi Whitman , PT Physical Therapy, [address] [address] 04/06/2020 12:01:53 04/06/2020 16:28:38 Pain in right hip joint 1658199160 80368 M25.551 74 year old {{female m robert*}} [...] Include: Therapeuti c exercise and manual therapy [id number] Nagi Whitman , PT Physical Therapy, [address] [address] 04/13/2020 11:33:27 04/13/2020 12:51:03 Pain in right hip joint 9639207858 44359 M25.551 74 year old {{female m robert*}} [...] Include: Therapeuti c exercise and manual therapy [id number] Kathy May MD , [facility], OFFICE [address] [place] [address] 04/15/2020 09:27:50 04/19/2020 12:26:45 Atrial fibrillation 04731745 I48.91 still has sx at timeson CPAP to tx apnea and to have ablation scheduled, Dr Nabeel rae Benign pro static hyperplasia with outflow obstruction 513481243 N40.1 stabletera zosin tx Diabetes mellitus 402242 09 E11.9 A1C near goal7.7 stable meds/diets ome SE with metformin, go back to XL formulatio nexercise limited due to hip pain, working on [facility]dselect [facility] hospitalSkyrider blood sugarsno suerG3U May Essential hypertension 69907052 I10 in rangeat goal< 130/80on home checksnot sxno changes Hyperlipidemia 91790935 E78.5 high dose statinannu al labs Hypothyroidism 25795515 E03.9 stableannu al TSH Pain in ri ght hip joint 2783862595 [address] [facility] [id number] Nagi Whitman , PT Physical Therapy, [address] [address] 04/20/2020 11:38:03 04/20/2020 13:11:44 Pain in right hip joint 3730365204 41142 M25.551 74 year old {{female m robert*}} [...] Include: Therapeuti c exercise and manual therapy [id number] Nagi Whitman , PT Physical Therapy, [address] [address] 04/27/2020 11:34:55 04/28/2020 08:29:37 Pain in right hip joint 6619187528 85997 M25.551 74 year old {{female m robert*}} [...] Include: Therapeuti c exercise and manual therapy [id number] Nagi Whitman , PT Physical Therapy, [address] [address] 05/13/2020 13:00:37 05/13/2020 13:34:49 Pain in right hip joint 0310816760 31997 M25.551 74 year old {{female m robert*}} [...] Include: Therapeuti c exercise and manual therapy [id number] Nagi Whitman , PT Physical Therapy, [address] [address] 05/25/2020 13:31:31 05/30/2020 09:16:43 Pain in right hip joint 6513026697 43375 M25.551 74 year old {{female m robert*}} [...] Include: Therapeuti c exercise and manual therapy [id number] Nagi Whitman , PT Physical Therapy, [address] [address] 06/07/2020 09:33:48 06/07/2020 13:34:28 Pain in right hip joint 7955959913 93033 M25.551 74 year old {{female m robert*}} [...] Include: Therapeuti c exercise and manual therapy [id number] Nagi Whitman , PT Physical Therapy, [address] [address] 06/10/2020 15:31:57 06/13/2020 11:53:09 Pain in right hip joint 9854727892 08559 M25.551 74 year old {{female m robert*}} [...] also has a goal of returning to golScramblerMailg without pain or limitation . We will [...] Include: Therapeuti c exercise and manual therapy [id number] David Boyd MD Sports Medicine, [facility] [address] [facility] [place] [address] 06/14/2020 07:41:21 06/15/2020 14:44:19 Hip pain 78065313 M25.551 Rubens is a 74-year-ol d male [...] injections which would require referral to a technical sales specialist by his primary care doctor. I am of course happy to see Rubens romo on an as-needed basis for further care. Low back pain 207500070 M54.5 [id number] Nagi Whitman , PT Physical Therapy, [facility] [address] [place] [address] 06/22/2020 13:03:11 06/23/2020 17:02:44 Pain in right hip joint 1249013746 57727 M25.551 74 year old {{female m robert*}} [...] Include: Therapeuti c exercise and manual therapy [id number] Nagi Whitman , PT Physical Therapy, [address] [address] 07/13/2020 11:56:38 07/14/2020 14:33:44 Pain in right hip joint 8169820543 50089 M25.551 74 year old {{female m robert*}} [...] Include: Therapeuti c exercise and manual therapy [id number] Nagi Whitman , HEATHER Physical Therapy, [address] [address] 07/22/2020 15:01:44 07/25/2020 07:58:38 Pain in right hip joint 4359809475 29225 M25.551 74 year old {{female m robert*}} [...] Include: Therapeuti c exercise and manual therapy [id number] Wilma Darby LPN , [facility], [address] [place] [address] 09/08/2020 13:14:44 09/08/2020 16:12:02 Active or passive immunization 157206892 Z23 [id number] Nagi Whitman , PT Physical Therapy, [facility] [address] [place] [address] 09/29/2020 07:30:51 10/03/2020 08:18:53 Right side sciatica 8073105065 42128 M54.31 75 year old {{female m robert*}} [...] Include: Therapeuti c exercise and manual therapy [id number] Nagi Whitman , PT Physical Therapy, [address] [address] 10/06/2020 08:32:29 10/06/2020 11:03:15 Right side sciatica 2242785432 11623 M54.31 75 year old {{female m robert*}} [...] Include: Therapeuti c exercise and manual therapy [id number] Kathy May MD , [facility], [address] [place] [address] 10/07/2020 09:02:11 10/07/2020 16:45:07 Adult health examination 544843170 Z00.00 see Risk Assessment and Lifestyle Change Counseling section above Counseling 985947290 Z71 .9 including cardiovasc ular risk reduction counseling Depression screening 171 211160 Z13.89 depression screening tool administer ed, entered into emr, scored and discussed, time greater than 7.5 minutes Screening for alcohol abuse 227729640 Z13.39 Atrial fibrillation 4943 6004 I48.91 has had tx and [facility] with resultssta ble on xarelto Benign pro static hyperplasia with outflow obstruction 405914123 N40.1 stabletera zosin tx Diabetes mellitus 758540 09 E11.9 A1C near goal7.4 in May stable meds/dietd oing wellless exerciseho ping to change this soon with tx back painblood sugars in good range on home checks 110-130 [id number] due in schedule Essential hypertension 42358319 I10 goal< 130/80on home checks usually at goalmild elev todaynot sxno changeswil l send more readings via portal Hyperlipidemia 06477130 E78.5 high dose statinannu al labsat goal Hypothyroidism 05810333 E03.9 stableannu al TSH Degenerati on of lumbar intervertebral disc 15363069 M51.36 Dr Parkinject ion therapy workingwil l followhopi ng for ongoign improvemen ts and return to more exercise [id number] Nagi Whitman , PT Physical Therapy, [address] [address] 10/13/2020 08:33:24 10/13/2020 12:31:36 Right side sciatica [id number] 33749 M54.31 75 year old {{female m robert*}} [...] Include: Therapeuti c exercise and manual therapy [id number] Nagi Whitman , PT Physical Therapy, [address] [address] 11/04/2020 14:07:23 11/04/2020 14:34:03 Right side sciatica 1290384938 17666 M54.31 75 year old {{female m robert*}} [...] Include: Therapeuti c exercise and manual therapy [id number] Nagi Whitman , PT Physical Therapy, [address] [address] 11/23/2020 11:34:10 11/23/2020 13:05:55 Right side sciatica [id number] 94991 M54.31 75 year old {{female m robert*}} [...] Include: Therapeuti c exercise and manual therapy [id number] Kathy May MD , [facility], [address] [place] [address] 03/28/2021 09:54:19 03/29/2021 10:22:46 Essential hypertension 56962452 I10 goal < 130/80 has not checked today at home has been at goal not sx no changes today fu at wellness visit Diabetes mellitus 306968 09 E11.9 A1C near goal 7.9 recheck April and stable meds/diet 120-130 range at home when he checks stable diet limited exercise with back pain right now hopes to improve stable meds Degenerati on of lumbar intervertebral disc 30196457 M51.36 Dr Corley injection tx doing better now but has been slow still resting PT hoping in coming weeks will refer as needed Atrial fibrillation 4943 6004 I48.91 ablation/C PAP tx not sx Hypothyroidism 10612923 E03.9 mildly low TSH not sx recheck April Obstructiv e sleep apnea syndrome 59145727 G47.33 dx and tx doing well managing CPAP 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 188275047 E11.3299 followed by ophtho no vision changes [id number] Nagi Whitman , PT Physical Therapy, [facility] [address] [place] [address] 06/06/2021 12:54:12 06/06/2021 17:12:14 Lumbar radiculopathy 219846133 M54.16 75 year old {{male* fe male}} [...] Include: therapeuti c exercise and manual therapy [id number] Nagi Whitman , PT Physical Therapy, [address] [address] 06/22/2021 14:56:21 06/26/2021 07:42:59 Lumbar radiculopathy 722659138 M54.16 75 year old {{male* fe male}} [...] Include: therapeuti c exercise and manual therapy [id number] Nagi Whitman , [facility] Physical Therapy, [address] [address] 08/01/2021 10:54:12 08/01/2021 13:12:10 Lumbar radiculopathy 133427957 M54.16 75 year old {{male* fe male}} [...] Include: therapeuti c exercise and manual therapy [id number] Kathy May MD , [facility], [address] [place] [address] 08/11/2021 09:42:13 08/14/2021 09:56:39 Hypothyroidism 42049261 E03.9 TSH in rangestabl e with current dosecontin ue 125 mcg Atrial fibrillation 4943 6004 I48.91 ablation/C PAP txRRR todayon NOACnot sx Essential hypertension 20770286 I10 goal < 130/80at goalnot sxno changesBMP reviewed Diabetes mellitus 718339 09 E11.9 A1C at goal adjusted for age < 8 7.5gets good readings on blood sugar at homestable w mgmtmild peripheral neuropathy signs Obstructiv e sleep apnea syndrome 61728448 G47.33 dx and tx doing well managing CPAP Hyperlipidemia 88920311 E78.5 high dose statinannu al labsat goal Peripheral neuropathy due to type 2 diabetes mellitus 0278626597 107 E11.42 mild signs on examexcell ent foot care [facility] integrity [id number] RENAN CarrasquilloN FP, [facility], [address] [place] [address] 09/06/2021 09:50:59 09/07/2021 14:35:02 Active or passive immunization 444574725 Z23 [id number] Nagi Whitman , PT Physical Therapy, [facility] [address] [place] [address] 09/07/2021 10:28:18 09/07/2021 15:04:57 Lumbar radiculopathy 659563107 M54.16 Patient Goals: Be able to walk [...] exercise program to address his remaining deficits. [id number] Kathy May MD , [facility], [address] [place] [address] 11/09/2021 10:02:48 11/09/2021 11:00:32 Adult health examination 574053055 Z00.00 see Risk Assessment and Lifestyle Change Counseling section above Counseling 523965296 Z71 .9 including cardiovasc ular risk reduction counseling Depression screening 171 021292 Z13.31 depression screening tool administer ed, entered into emr, scored and discussed, time greater than 7.5 minutes Screening for alcohol abuse 919293296 Z13.39 Atrial fibrillation 4943 6004 I48.91 ablation/C PAP txRRR todayon NOACnot sx Benign pro static hyperplasia with outflow obstruction 957717208 N40.1 stabletera zosin tx Degenerati on of lumbar intervertebral disc 32758845 M51.36 Dr Corley injection txsx get better and worsenotes overall progressio nstaying active as ablegoing to try recumbant stationary bike Diabetes mellitus 825237 09 E11.9 A1C at goal adjusted for age < 8 7.5gets good readings on blood sugar at homestable w mgmtmild peripheral neuropathy signs Hyperlipidemia 02636983 E78.5 high dose statinannu al labsat goal 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 670815680 E11.3299 followed by ophtho no vision changes Hypothyroidism 75163129 E03.9 TSH elevatedno t sxraised levo and f/u labs in Nov Osteoarthritis 794976531 M19.90 ongoing issues back and hands and kneesdiscu ssed management pain controlexe rciseanti- inflammato ry diet Venous sta sis edema of bilateral lower limbs 5959166292 9986058 I87.2 LE edemanotes improved but ongoingwil ling to try compressio nwill order [id number] Kathy May MD , [facility], [address] [place] [address] 05/10/2022 09:49:55 05/16/2022 17:07:59 Essential hypertension 14607712 I10 goal < 130/80at goal notes some sx lightheade d, episodedec rease amlodipine to 5 mgf/u one month 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 073804520 E11.3299 followed by ophtho no vision changes Atrial fibrillation 4943 6004 I48.91 on NOACnot sxstablera te control Degenerati on of lumbar intervertebral disc 90907169 M51.36 Dr Corley injection txrecent steroid injection 2 weeks agostaying active Diabetes mellitus 379673 09 E11.9 A1C at goal adjusted for age < 8 7.3encoura ged to check sugars for sx?ing lower bp or sugars causing sxadvised to tx and sx lows even if his blood sugar meter not on hand Hypothyroidism 50668472 E03.9 TSH in rangelower in Nov, normal Marchrepea t next labs for stability Benign pro static hyperplasia with outflow obstruction 462972970 N40.1 noting some increase nighttime sx but intermitte ntmonitor for nowterazos [place] [id number] Kathy May MD , [facility], [address] [place] [address] 06/13/2022 15:51:26 06/14/2022 10:53:37 Essential hypertension 78624493 I10 goal < 130/80near ly at goal here todaymostl y at goal at home no longer lightheade d on less amlodipine will leave on lower dose and f/u at wellness Benign pro static hyperplasia with outflow obstruction 027430762 N40.1 ongoing increased nocturiawo uld like it to be lesson terazosinu rology referral for further considerat ion tx options [id number] Kathy May MD , [facility], [address] [place] [address] 08/28/2022 08:57:43 08/28/2022 10:18:54 Stiff neck 438885902 M43.6 noted on examsx are more acute with shoulder painsome radicular sx on right armPT for tx to startadvis ed gentle ROMcontinu e tylenol Pain of ri ght shoulder joint 4099848801 2769183 M25.511 check labs for PMR/lymemo re acute onset limitation right shoulderno manny left on exampain right armno injury or new activitywo rse in AMcannot take nsaidstaki ng tylenolsta rt PTtx PMR if labs dx [id number] Kathy May MD , [facility], [address] [place] [address] 09/12/2022 08:34:44 09/12/2022 13:52:49 Lyme disease 48358830 A69.20 positive lyme, sxwas tx for PMR working dxhe had pain again in shoulder when missed a dose of prednisone we will try to wean him off prednisone he is tolerating doxyhe has no other sx or complaints repeat labs todayf/u three weeks Atrial fibrillation 4943 6004 I48.91 on NOACnot sxstablera te control Hypothyroidism 65125599 E03.9 TSH was low in cre sed levorepeat TSHno sx (other than as related above) Essential hypertension 21237232 I10 goal < 130/80at goal on recheck [id number] Millie Julian NP FP, [facility], [address] [place] [address] 09/17/2022 17:13:53 10/25/2022 13:54:07 COVID-19 642409497 U07.1 Tested positive on Saturday09/14/22Sx improving, currently mild Exposure t o SARS-CoV-2 840497266 Z20.828 Will consider paxlovid but on prednisone and other meds that may interactWi ll discuss with PCP and f/u with pt tomorrow (Saturday)P t will fu if sx worsen - pt & in agreement w plan. [id number] Kathy May MD , [facility], [address] [place] [address] 10/03/2022 09:30:38 10/03/2022 16:10:18 Lyme disease 53693675 A69.20 treated 28 dayssee notes below re [...] still pain after lyme tx Diabetes mellitus 999095 09 E11.9 A1C at goal adjusted for age < 8 7.9 has had higher readings on prednisone and now lowerhe is watching dietwishes to be more active, which he can do if he keeps with prednisone for pain mgmtlabs reviewedon ly urine microalb due before wellnesswi ll do sooner as he is going to lab re abovecan cancel appt for lab in [id number] Kathy May MD , [facility], [address] [place] [address] 10/31/2022 10:37:28 10/31/2022 15:03:55 Diabetes mellitus 36237592 E11.9 A1C at 9.6, NOT at goal adjusted for age < 8 increase glimepirid e to 8 mg has had higher readings on prednisone he is watching diet Degenerati on of lumbar intervertebral disc 00424730 M51.36 appt with surgeon on 11/13had gotten rx for diclofenac but advised not to use with prednisone Essential hypertension 02539780 I10 goal is < 130/80, NOT at goal bumqm518/6 4 in office, similar readings at home [...] d/t elevated A1chas rheum appt Nov 07 [id number] Kathy May MD FP, [facility], [address] [place] [address] 11/13/2022 11:36:00 11/13/2022 12:07:51 Adult health examination 160125582 Z00.00 see Risk Assessment and Lifestyle Change Counseling section above Counseling 444737095 Z71 .9 including cardiovasc ular risk reduction counseling Depression screening 171 341094 Z13.31 depression screening tool administer ed, entered into emr, scored and discussed, time greater than 7.5 minutes Screening for alcohol abuse 984057001 Z13.39 Polymyalgi a rheumatica 86908204 M35.3 saw rheumfelt correct w dxon steroids but mildly sx stillgiven higher sugars thinking about moving to methotrexa te txhas f/u mid Novemberrec ommended PTpt likely to do this in November and wants [facility], referral placed for easereassu maryam todaygoal to get off steroids and mgmt sx Degenerati on of lumbar intervertebral disc 44450638 M51.36 appt with surgeon on 11/13ink ing about possible procedure to release pressurefi nds that radiating back pain does affect his goal of walking 3 miles daily Diabetes mellitus 107357 09 E11.9 A1C at 9.6, NOT at goal adjusted for age < 8 increased glimepirid e to 8 mg this monththis is secondary to steroid txgoals right now to find alt mgmt to PMR and come off steroidsco ntinue healthy dietexerci se as toleratedc ontinue medscheck A1C in 3 months Essential hypertension 92666940 I10 close to gnja061x/6 0sno changes at this timef/u 3 months Hypothyroidism 79346223 E03.9 TSH in range Octcontinu e currentrec heck for stability 3 mo Atrial fibrillation 4943 6004 I48.91 on NOACnot sxstablera te control Benign pro static hyperplasia with outflow obstruction 930323583 N40.1 feels sx well managed at this time [id number] Nagi Whitman , PT Physical Therapy, [facility] [address] [place] [address] 12/13/2022 16:07:43 12/14/2022 08:12:50 Pain of left shoulder joint 4691837946 3398405 M25.512 77 year old {{female m robert*}} [...] therapy Pain of ri ght shoulder joint 9910622566 3446146 M25.371 [id number] Kathy May MD , [facility], [address] [place] [address] 12/18/2022 09:34:18 12/18/2022 17:26:39 Pre-surgery evaluation 128973841 Z01.818 clear for his surgery with Dr Medina done with cardiology last week and reviewedla bs UTD in [facility] re to hold Xarelto 2 days before and after procedure Diabetes mellitus 479347 09 E11.9 A1C at 9.6, NOT at [...] week Degenerati on of lumbar intervertebral disc 98907040 M51.36 pt is clear for his decompress ion with Dr Julian 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 PMR or RAon hydroxychl oroquine and pred now with goal to wean prednisone after surgery [id number] Nagi Whitman , PT Physical Therapy, [facility] [address] [place] [address] 12/20/2022 16:26:59 12/21/2022 09:35:21 Pain of left shoulder joint 8758032624 3398330 M25.512 77 year old {{female m robert*}} [...] therapy Pain of ri ght shoulder joint 3842964990 4845167 M25.827 [id number] Nagi Whitman , PT Physical Therapy, [address] [address] 12/27/2022 09:49:08 12/27/2022 10:41:50 Pain of left shoulder joint 8212947397 7213534 M25.512 77 year old {{female m robert*}} [...] therapy Pain of ri ght shoulder joint 0774290949 6982891 M25.658 [id number] Kathy May MD , [facility], [address] [place] [address] 02/13/2023 09:33:22 02/13/2023 10:38:45 Diabetes mellitus 59412867 E11.9 A1C up to 10, NOT at [...] follows Degenerati on of lumbar intervertebral disc 73194191 M51.[address] Julian and is doing wellless pain Polymyalgi a rheumatica 93061468 M35.3 working with rheumon hydroxychl oroquine and weaning prednisone some sx recurringh e has f/u in three mowill see how he does on prednisone weannoting that likely source of liver enzymes up is from hydroxychl oroquinewi ll update rhuem after labs Elevated l evel of transaminase and lactic acid dehydrogenase 536205748 R74.01 w/u below though suspect drug SE as noted abovef/u with rheum after labs Hypothyroidism 45702489 E03.9 TSH up to 5continue currentrec heck for stability 3 mo [id number] Nagi Whitman , PT Physical Therapy, [address] [address] 02/12/2023 14:53:43 02/13/2023 09:10:32 Pain of right shoulder joint 1333458807 3257709 M25.511 Muscle weakness 41561131 M62.81 [id number] Nagi Whitman , PT Physical Therapy, [address] [address] 02/19/2023 16:17:42 02/20/2023 08:46:59 Pain of right shoulder joint 9980168836 3520098 M25.511 77 year old {{female m robert*}} [...] function in this time frame. Muscle weakness 99157218 M62.81 [id number] Nagi Whitman , PT Physical Therapy, [address] [address] 03/05/2023 12:19:23 03/05/2023 13:17:48 Pain of right shoulder joint 5615161374 5219060 M25.511 77 year old {{female m robert*}} [...] function in this time frame. Muscle weakness 84291502 M62.81 [id number] Kathy May MD , [facility], [address] [place] [address] 03/20/2023 08:39:34 03/20/2023 12:19:32 Diabetes mellitus 91835184 E11.9 blood sugars are coming down on prednisone ranging 130-190die t stable, exercising regularly discussed other med options agree no changes today given improvingf /u labs 2 months Essential hypertension 32255576 I10 at goal< 130/80 Psoriasis 4924286 L40.9 notes some eruptions on right legconsist ent with psoriasis, not pruriticno te this is possible SE on Hydroxychl oroquinehe will treat topically and monitor Polymyalgi a rheumatica 77541986 M35.3 following with rheumatolo gyweaning prednisone taking hydroxychl oroquinemo nitoring Degenerati on of lumbar intervertebral disc 59217837 M51.[address] Eliel Escobar ght sided pain resolvedno w more left sided sxseeing PSS tomorrow [id number] Nagi Whitman , PT Physical Therapy, [facility] [address] [place] [address] 03/14/2023 09:24:51 03/14/2023 10:27:45 Pain of right shoulder joint 8279943212 9834291 M25.511 77 year old {{female m robert*}} [...] function in this time frame. Muscle weakness 02286949 M62.81 [id number] Nagi Whitman , PT Physical Therapy, [facility] [address] [place] [address] 03/26/2023 14:19:32 03/26/2023 15:04:23 Pain of right shoulder joint 7269956421 0918994 M25.511 77 year old {{female m robert*}} [...] function in this time frame. Muscle weakness 84279856 M62.81 [id number] Nagi Whitman , PT Physical Therapy, [facility] [address] [place] [address] 04/02/2023 10:49:12 04/02/2023 11:41:40 Pain of right shoulder joint 0583748384 9945426 M25.511 77 year old {{female m robert*}} [...] function in this time frame. Muscle weakness 40719810 M62.81 [id number] Nagi Whitman , PT Physical Therapy, [facility] [address] [place] [address] 04/09/2023 13:34:52 04/09/2023 14:46:45 Pain of right shoulder joint 0463060699 3395838 M25.511 77 year old {{female m robert*}} [...] function in this time frame. Muscle weakness 91776962 M62.81 [id number] Nagi Whitman , PT Physical Therapy, [facility] [address] [place] [address] 04/30/2023 16:10:40 05/01/2023 11:19:35 Pain of right shoulder joint 7083662168 7978994 M25.511 77 year old {{female m robert*}} [...] function in this time frame. Muscle weakness 27750715 M62.81 [id number] Kathy May MD FP, [facility], [address] [place] [address] 06/18/2023 09:37:08 06/18/2023 10:45:39 Cough 02181625 R05.9 occ use inhaler with sx illness Diabetes mellitus 191429 09 E11.9 blood sugars are coming downnotes much lower fastingdoe sn't like metformin, GI SE and in current arthritic pain setting this is hardtrial just one [id number] in 1-2 months Essential hypertension 36442973 I10 at goal< 130/80lowe r today, not sxcardiolo gy mgmt as well Hypothyroidism 04498599 E03.9 in range April Rheumatoid arthritis 698 45320 M06.9 working dson hydroxycho lorquine? effecthas pain, less than previoustr debbie to come off prednisone on 2mg daily now Psoriasis 4756171 L40.9 using topicalssu spect SE exacerbati on from hydroxycho lorquinewa iting for rheum appt Atrial fibrillation 4943 6004 I48.91 on NOACnot sxstablera te controlcar diology follows Degenerati on of lumbar intervertebral disc 53736018 M51.36 occ flares with painhas visit Dr Corley this Jul [id number] Nagi Whitman , PT Physical Therapy, [facility] [address] [place] [address] 06/18/2023 08:48:20 06/18/2023 13:53:20 Pain of right shoulder joint 2162832804 2007933 M25.511 Patient Goals:Be able to reach, push, [...] reached his balance exercise goals. 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 179844203 E11.3299 followed by ophtho no vision changeswor [place] on DM controlsee below Diabetes mellitus 351918 09 E11.9 A1C was high, > 9blood sugars coming down in past three weeks off prednisone he is willing to try 1000 mg daily dose metformin again, had some GI effects when taking on prednisone if he has SE can try splitting dose or stopcontin ue checking sugarswalk after mealsf/u at wellness Posterior rhinorrhea 758 58803 R09.82 notes sx for about six monthnight cough bothersome feels drip, mostly on left sidestart with trial nasal antihistam ine [id number] Kathy May MD , [facility], [address] [place] [address] 11/14/2023 09:57:53 11/14/2023 13:44:51 Adult health examination 747159447 Z00.00 see Risk Assessment and Lifestyle Change Counseling section above Depression screening 171 546015 Z13.31 depression screening tool administer ed Screening for alcohol abuse 142275662 Z13.39 Alcohol use screening tool administer ed Posterior rhinorrhea 758 73331 R09.82 sx are controlled when he uses azelastine enc to continue use as neededmay stop seasonally if not sx Bilateral carpal tunnel syndrome 7512933571 4476966 G56.03 new dxworking with rheumatolo gy for nowhome exercisesr ecommend splintingh as f/u with specialist at [facility] for further tx mgmt per referral of Dr Coronado Atrial fibrillation 4943 6004 I48.91 on NOACnot sxstablera te controlcar diology follows Degenerati on of lumbar intervertebral disc 23860471 M51.36 chronic painwonder ing how much RA drugs will helpcan f/u with Dr Corley for other txwill review with rheumadvis ed to let his sx guide him Diabetes mellitus 843764 09 E11.9 A1Cat goal 7.5range at home 100-140 oftendoing wellnote proteinuri a, will continue tracking annually and watch renal functionco ntinue current mgmt Essential hypertension 09119122 I10 not at goal< 130/80has been good at other apptssaw cardiolgy last [facility], [facility] reviewedno changesche ck at homecall with reportf/u 6 mo or sooner if not at goal Hypothyroidism 33360049 E03.9 in rangenot sx Hyperlipidemia 93284449 E78.5 high dose statinannu al labsat goal 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 485597472 E11.3299 followed by ophtho up to date with eye careDM mgmt focus Rheumatoid arthritis 698 32358 M06.9 dual agents, Humira and methotrexa teDr Tallatf/u tomorrowho peful for ongoing pain reliefchro laura back pain, hand pain but now also some neuropathy Diabetic p eripheral neuropathy 841411366 E11.40 chronicnot es more pain in hands, carpal tunnelhas PRN gabapentin but uses this mainly for back pain [id number] Kathy May MD FP, [facility], [address] [place] [address] 04/29/2024 12:00:39 04/29/2024 12:49:53 Diabetes mellitus 82366948 E11.9 A1Cat goal 7.2attribu ami good control to good diet and regular exercisebi kes six miles most days, takes walksf/u six mono med chagnes Essential hypertension 12881840 I10 close to goal on recheckgoa l < 130/80noti ng at home can be up to 140 often, like every 3-4th checkwill increase lisinopril to 30 mghe will keep checkingf/ u if not improving f/u 6 mo at wellness routine Hypothyroidism 02120709 E03.9 in rangenot sx Rheumatoid arthritis [address] Webb owing and txunder control Diabetic p eripheral neuropathy 012593839 E11.40 chronichad confirmato ry neurologic testing w Dr Gonzalez with recent w/u for muscle wasting of hands Spinal melodie nosis in cervical region 55433672 M48.02 severe C3-4 and C5-6noting sx in UE and LEmuscle wasting, balance issueshas PT referralne eds laminectom y, neurosurge on at [facility] wants to schedulept wants to see Dr Julian again, has appt in June, sent records and hoping to talk w him sooner. [id number] Nagi Whitman , PT Physical Therapy, [facility] [address] [place] [address] 06/09/2024 11:22:41 06/11/2024 10:17:55 Spinal stenosis in cervical region 73840592 M48.02 78 year old {{female m robert*}} [...] after surgery if indicated by his surgeon. [id number] Nagi Whitman , PT Physical Therapy, [facility] [address] [place] [address] 08/18/2024 09:55:52 08/20/2024 14:48:00 Cervical spondylosis 812911730 M47.812 79 year old {{female m robert*}} [...] Include as appropriat e: therapeuti c exercise (88360), manual therapy (36668), therapeuti c activity (34118), gait training (49231), neuromuscu lar reeducatio n (72134), mechanical traction (26962) [id number] Nagi Whitman , PT Physical Therapy, [address] [address] 08/25/2024 10:29:19 08/28/2024 08:19:05 Cervical spondylosis 274139171 M47.812 79 year old {{female m robert*}} [...] Include as appropriat e: therapeuti c exercise (47115), manual therapy (83029), therapeuti c activity (69032), gait training (79080), neuromuscu lar reeducatio n (26336), mechanical traction (53607) [id number] Nagi Whitman , PT Physical Therapy, [address] [address] 08/27/2024 11:28:00 08/27/2024 13:48:52 Cervical spondylosis 566158159 M47.812 79 year old {{female m robert*}} [...] Include as appropriat e: therapeuti c exercise (66022), manual therapy (83581), therapeuti c activity (64852), gait training (10141), neuromuscu lar reeducatio n (26009), mechanical traction (43708) [id number] Nagi Whitman , PT Physical Therapy, [address] [address] 09/01/2024 09:55:46 09/01/2024 14:40:54 Cervical spondylosis 074083633 M47.812 79 year old {{female m robert*}} [...] Include as appropriat e: therapeuti c exercise (66001), manual therapy (94251), therapeuti c activity (46849), gait training (82076), neuromuscu lar reeducatio n (15950), mechanical traction (45448) [id number] Nagi Whitman , PT Physical Therapy, [address] [address] 09/03/2024 11:52:00 09/03/2024 15:21:32 Cervical spondylosis 011217142 M47.812 79 year old {{female m robert*}} [...] Include as appropriat e: therapeuti c exercise (13923), manual therapy (10271), therapeuti c activity (00783), gait training (27459), neuromuscu lar reeducatio n (49097), mechanical traction (45824) [id number] Nagi Whitman , PT Physical Therapy, [address] [address] 09/08/2024 10:24:31 09/08/2024 12:43:04 Cervical spondylosis [id number] M47.812 79 year old {{female m robert*}} [...] Without limitation s due to upper extremity [id number] Patient is performing a home exercise program [...] Include as appropriat e: therapeuti c exercise (29177), manual therapy (68492), therapeuti c activity (57705), gait training (44508), neuromuscu lar reeducatio n (41876), mechanical traction (72722) [id number] Nagi Whitman , PT Physical Therapy, [address] [address] 09/15/2024 09:47:32 09/15/2024 13:15:54 Cervical spondylosis [id number] M47.812 79 year old {{female m robert*}} [...] Include as appropriat e: therapeuti c exercise (61667), manual therapy (61229), therapeuti c activity (44390), gait training (37414), neuromuscu lar reeducatio n (51147), mechanical traction (61798) [id number] Nagi Whitman , PT Physical Therapy, [address] [address] 09/29/2024 09:50:42 09/29/2024 12:54:36 Cervical spondylosis [id number] M47.812 79 year old {{female m robert*}} [...] Include as appropriat e: therapeuti c exercise (62026), manual therapy (21849), therapeuti c activity (88485), gait training (82825), neuromuscu lar reeducatio n (01294), mechanical traction (63183) [id number] Nagi Whitman , PT Physical Therapy, [address] [address] 10/15/2024 14:25:05 10/16/2024 12:15:46 Cervical spondylosis [id number] M47.812 79 year old {{female m robert*}} [...] Include as appropriat e: therapeuti c exercise (96900), manual therapy (95057), therapeuti c activity (16729), gait training (54255), neuromuscu lar reeducatio n (59478), mechanical traction (00967) [id number] Nagi Whitman , PT Physical Therapy, [address] [address] 11/05/2024 13:52:40 11/05/2024 14:57:03 Cervical spondylosis 415753192 M47.812 79 year old {{female m robert*}} [...] Include as appropriat e: therapeuti c exercise (42132), manual therapy (89847), therapeuti c activity (84239), gait training (63435), neuromuscu lar reeducatio n (15849), mechanical traction (47502) [id number] Kathy May MD , [facility], [address] [place] [address] 12/02/2024 10:34:06 12/02/2024 11:09:45 Posterior rhinorrhea 59437229 R09.82 sx are controlled when he uses azelastine continuere fill today Atrial fibrillation 4943 6004 I48.91 on NOACnot sxstablera te controlcar diology visits and holter this spring Diabetes mellitus 194246 09 E11.9 A1Cat goal 6.7he is staying activeeati ng welltaking medication working w his neuropathy sx Essential hypertension 79428099 I10 elevated [facility] February[facility] 130/80no changes todayf/u with BP clinic in a monthcardi ology following as well Rheumatoid arthritis [address] Coronado left, will follow w Dr Harry woodruff changing from [facility] as no longer on free program and expensive, has enough until well controlled meeting Dr Ayala in December Bilateral hearing loss [id number] H91.93 pt notes some issues, notes [facility] audiology apptear canals are clear Diabetic p eripheral neuropathy [id number] E11.40 chroniccon firmed w EMG testingong oing issues w balancewor maisha w PTnormal DM foot exam Spinal melodie nosis in cervical region 26833009 M48.02 had four discs replacedsl ow recovery but feels he is improvedwo rking on regaining muscle and strenth in his hands [id number] Nagi Whitman , PT Physical Therapy, [facility] [address] [place] [address] 12/08/2024 09:54:51 12/10/2024 10:11:34 Cervical spondylosis 304246113 M47.812 79 year old {{female m robert*}} [...] Without limitation s due to upper extremity dpvlvlet75. We will continue to monitor this but [...] to manage this stadium stairs at the [facility] as a proxy for his balance [...] Include as appropriat e: therapeuti c exercise (55646), manual therapy (86118), therapeuti c activity (60672), gait training (35399), neuromuscu lar reeducatio n (11850), mechanical traction (30801) [id number] Nagi Whitman , PT Physical Therapy, [facility] [address] [place] [address] 12/22/2024 12:49:14 12/22/2024 15:31:46 Cervical spondylosis 450177762 M47.812 79 year old {{female m robert*}} [...] Without limitation s due to upper extremity hspnkujl75. We will continue to monitor this but [...] to manage this stadium stairs at the [facility] as a proxy for his balance [...] Include as appropriat e: therapeuti c exercise (75311), manual therapy (73738), therapeuti c activity (78881), gait training (08858), neuromuscu lar reeducatio n (09844), mechanical traction (80182) [id number] Wilma Darby LPN , [facility], [address] [place] [address] 01/01/2025 10:11:35 01/04/2025 12:11:24 Essential hypertension 21990708 I10 Improved but still above goal [id number] Nagi Whitman , PT Physical Therapy, [facility] [address] [place] [address] 01/05/2025 11:29:07 01/05/2025 12:14:23 Cervical spondylosis 263599637 M47.812 79 year old {{female m robert*}} [...] Without limitation s due to upper extremity fuuxnjma54. We will continue to monitor this but [...] to manage this stadium stairs at the [facility] as a proxy for his balance [...] Include as appropriat e: therapeuti c exercise (73179), manual therapy (28988), therapeuti c activity (74254), gait training (62687), neuromuscu lar reeducatio n (32166), mechanical traction (22065) Health Concerns Section Related Observation LastModified by Organization Detai ls LastModified Time None Recorded Concern Status LastModified by Organization Details LastModified Time None Recorded Advance Directives Directive Y: Payers Encounter Date Sequence Insurance Name Policy Number Policy Kulkarni Covered Member ID Kulkarni Member ID Guarantor Name 12/02/2024 2 [place]MEDIC[place] SU[place]LE[id number] Maxim A Cristin [id number] Maxim A Cristin 12/02/2024 1 [place] [employer] Maxim A Cristin [id number] Maxim A Cristin 12/08/2024 2 [place]MED[place]LE[place]) [id number] Maxim A Cristin [id number] Maxim A Cristin 12/08/2024 1 [place] Maxim A Cristin [id number] Maxim A Cristin 12/22/2024 2 [place]MEDIC[place] SUPPLE[id number] Maxim A Cristin [id number] Maxim Holcombe 12/22/2024 1 [place] Maxim Holcombe [id number] Maxim Holcombe 01/01/2025 2 [place] BC[place] (MEDICARE SUPPLEMENT) [id number] Maxim Holcombe [id number] Maxim Bryan Cristin 01/01/2025 1 [place] Maxim Holcombe [id number] 0 Mxaim Bryan Cristin 01/05/2025 2 [place]: ANTHEM [facility] (MEDICARE SUPPLEMENT) [id number] Maxim Holcombe [id number] Maxim Holcombe 01/05/2025 1 [place] Maxim Holcombe [id number] Maxim Amaral Notes Date Note Type [...] progress and has hand therapist over at [facility] to see if he can get [...] by other background sounds Kathy May MD [address] [place] [address], [phone], [facility] 12/02/2024 11:13:38 12/08/2024 text/html PT Initial Eval*Reported [...] a day); I had family visiting at [place] and missed an appointment . shoulder an [...] limitation in Walking/balance Nagi Whitman, PT [address] [place], [address], [facility] 12/10/2024 08:49:27 12/22/2024 text/html Patient Specific Functional Score:{{10 20 30 40 50 60* 70 80 90 100} } Percent limitation in Use of hands{{10 20 30 40 5 0 60 70* 80 90 100}} Percent limitation in Walking/balance Nagi Whitman, PT [address] [place], [address], [facility] 12/22/2024 13:36:44 12/22/2024 text/html PT Initial Eval*Reported bypatient.History:[facility] complaint: (Upper extremity weakness, lower extremity weakness [...] less arm support. Nagi Whitman, PT [address] [facility], [place], [address], [facility] 12/22/2024 13:36:44 01/01/2025 text/html The patient had [...] if developing these sx Wilma Darby LPN [facility] 01/01/2025 10:44:08 01/05/2025 text/html PT Initial Eval*Reported bypatient.History:[facility] complaint: (Upper extremity weakness, lower extremity weakness [...] limitation in Walking/balance Nagi Whitman, PT [address] [facility], [place], [address], [facility] 01/05/2025 12:12:35
[2025-01-26 11:05] LABS: Basophils Absolute Auto 0.1 X10*3/uL (0.0-0.2); Basophils Percent Auto 1.5 % (0-2); Eosinophils Absolute Auto 3.1 X10*3/uL (0.0-0.4); Eosinophils Percent Auto 39.3 % (0-4); Hematocrit 39.7 % (42.0-52.0); Imm Gran Abs Auto 0.01 X10*3/uL (0.00-0.03); Imm Gran Pct Auto 0.1 % (0.0-0.4); Lymphocytes Absolute Auto 1.4 X10*3/uL (1.2-4.9); Lymphocytes Percent Auto 18.3 % (20-40); MANUAL DIFF FLAG SCAN; Mean Corpuscular HGB Conc 32.7 g/dl (31.0-36.0); Mean Corpuscular Hemoglobin 30.7 pg (27.0-33.0); Mean Corpuscular Volume 93.9 fL (80.0-98.0); Mean Platelet Volume 9.9 fL (9.4-12.4); Monocytes Absolute Auto 0.5 X10*3/uL (0.1-1.2); Monocytes Percent Auto 6.7 % (2-11); Neutrophils Absolute Auto 2.7 x10*3/uL (2.0-8.3); Neutrophils Percent Auto 34.1 % (45-73); Platelet Count 210 X10*3/uL (160-400); Red Blood Count 4.23 X10*6/uL (4.60-5.80); Red Cell Distribution Width 13.8 % (11.0-16.0); SCAN SMEAR FLAG 1; White Blood Count 7.9 X10*3/uL (4.8-10.8)
[2025-01-26 11:17] LABS: Alanine Aminotransferase 31 U/L (0-40); Albumin Level 3.7 g/dL (3.5-5.0); Alkaline Phosphatase 75 U/L (39-117); Anion Gap 10 (12-20); Aspartate Amino Transferase 32 U/L (5-37); Blood Urea Nitrogen 16 mg/dL (9-16); C Reactive Protein < 0.10 mg/dL (< or = 0.50); Calcium 8.7 mg/dL (8.4-10.2); Carbon Dioxide 26 mmol/L (22-29); Chloride 112 mmol/L (96-108); Estimated Glomerular Filt Rate > 60; Glucose Random 180 mg/dL (60-115); Potassium 4.8 mmol/L (3.3-5.1); Sodium 143 mmol/L (135-145); Total Protein 6.3 g/dL (6.5-8.0)
[2025-01-26 11:27] LABS: SLIDE REVIEW VERIFIED
[2025-01-26 11:47] LABS: Erythrocyte Sedimentation Rate 4 MM/HR (0-15)
== END 2025-01-26 08:45 | disposition home or self-care (01) ==
LOC: HO.10HDL 08:44
PROVIDERS: Visit Provider Student in an Organized Health Care Education/Training Program
DX: B34.9 Viral infection, unspecified (principal)
CPT/HCPCS: 36415; 80053; 85025; 85652; 86140

== ENCOUNTER 2025-04-29 08:00 | Outpatient (REF) | payer MEDICARE, BC, SELFPAY ==
--- OUTSIDE RECORDS SUMMARY | 2025-04-29 08:04 | XMS_ITS | Data Portability ---
Author Organization [facility], [facility] Address [address] [place] [address] Care Team Providers Care [address] Judge Name Role Phone KATHY MAY Primary Care Provider DAVID BOYD Sports Medicine NAGI WHITMAN Physical Therapist [phone] VY SEGURA Gear Hobber JOHNNA HESS Engineer Intern GUSTAVO ZIMMER Transition Mgr BETH JULIAN Neurologist Assessment Encounter Date Assessment [...] toward their goals. Follow up: 4 weeks [email or web address] Not available 01/05/2025 12:12:23 02/02/2025 02/02/2025 13 PT sessions since initial evaluation on 08.18.24 Since our prior session patient reports improvement in symptom control and function. Clinically associated pain with ROM and resisted motions are improving. We will assess if continued exercise with progressive intensity help patient in progression toward their goals. Follow up: 4 weeks josullivan Not available 02/02/2025 15:07:13 03/10/2025 03/10/2025 We completed your Medicare Wellness exam today. This was an opportunity to assess your overall well being including your ability to care for yourself, your mobility, memory, mental health, as well as your safety. With advancing age, it is important to assign someone in your life as your Health Care Proxy (HCP). This person should know what is important to you and what your wishes are for medical procedures if you cannot communicate your wishes yourself (severe illness, unconsciousness) . We discussed having a completed Health Care Proxy form today. If appropriate, today we started a conversation about your End of Life wishes. These conversations will continue over the years. We discussed the purpose of a MOLST form (Medical Orders for Life Sustaining Treatment) and completed this form if appropriate per your wishes. Vision and Hearing are senses that are critically important as we age. When impaired, they can contribute to memory loss, falls, and make it harder to drive, talk to family and friends, and engage in the world. Please get your vision checked yearly and your hearing checked when you start to notice hearing loss. We discussed approaches to lowering your risk of heart disease and stroke . Your blood pressure is at goal. Your cholesterol is at goal. We discussed cancer screening you may need as well as vaccines to prevent infections. Colon Cancer : Your risk of colon cancer is average. Due for colorectal screening:no longer needed. If you are not planning to have a colonoscopy please screen with stool cards yearly. Greater than 50% of this 25 minute visit was spent in direct counseling of the patient. Prostate Cancer : PSA testing for ages 55-69 risks and benefits discussed test not ordered. Influenza Vaccine : Flu shot yearly. Tetanus Vaccine : Every 10 years. Due: 2024. The following vaccines are available from your pharmacy: Pneumonia Vaccine : PCV20: once after age 65. Shingles Vaccine : 2 shots after age 50. Covid Vaccine : Make sure you have received the most up to date covid vaccine. Your personal health goal for the year is: We reviewed your chronic medical conditions and updated your plan for management. Please review instructions below. We have discussed your personal goals and discussed how to reach your goals. Please reach out to us via the Portal or phone if you have questions about your chronic conditions or if you or your caregivers require assistance in meeting your goals. Please visit our website [employer] for more patient resources. As part of your care plan, we will help coordinate your ongoing medical needs, arrange for durable medical equipment, renew prescriptions and necessary prior authorizations, facilitate getting referrals and collaborating with specialist, referrals for VNA services. [email or web address] Not available 03/10/2025 17:24:14 03/30/2025 03/30/2025 14 PT sessions since initial evaluation on 08.18.24 Since our prior session patient reports improvement in symptom control and function. Clinically associated pain with ROM and resisted motions are improving. Follow up: At this time patient is comfortable with their level of symptom control and function and confident they can continue with a home exercise program independently. No further physical therapy is planned. [email or web address] Not available 04/01/2025 09:23:55 Plan of Treatment Reminders Order Date Submit Date Provider Last Modified By Organization Details Last Modified Time Details Appointments LAB Follow-Up 2024 09:00A M [facility] Lab Not available Not available Not available Follow Up, 2024 11:00A M Kathy May MD Not available Not available Not available LAB Follow-Up 2025 09:00A M [facility] Lab Not available Not available Not available Wellness Visit 2025 11:15A M Kathy May MD Not available Not available Not available Lab None recorded. Referral None recorded. Procedures None recorded. Surgeries None recorded. Imaging None recorded. Medication Orders None recorded. Patient TargetsNo targets recorded. Patient Instructions Encounter Date Encounter Id Patient Instructions Last Modified By Organization Details Last Modified Time 03/10/2025 [id number] please bring us a copy of your health care proxy and advanced directives take 1000 iu vitamin d daily, or average 5,000-10,000 once a week [email or web address] Not available 03/10/2025 17:17:43 After a discussi on of treatment options, which included consideration of best practices and patient preferences, the following treatment plan and objectives were adopted: as above. [email or web address] Not available 03/10/2025 17:17:22 Reason for Referral None Reported. Results Created Date Observation Date Name Description Value Unit Range Abnormal Flag Note LastModifiedBy Organization Detail LastModifiedTime 03/04/20 25 03/04/2025 HGB A1C hemoglobin A1C 7.0 % 4.8-6. 0 high Goal: <7% in [...] furth er confi rmati on Not Available [address], [address], 03/04/2025 11:04:52 03/04/20 25 03/04/2025 HGB A1C estimated average glucose 154.2 mg/dL Not Available [address], [address], 03/04/2025 11:04:52 03/04/20 25 03/04/2025 MICRO ALBUM IN/CR EATIN INE RATIO PANEL , URINE microalbumin 39.3 mg/L 1.3-20 .0 high Not Available [address], [address], 03/04/2025 13:36:54 03/04/20 25 03/04/2025 MICRO ALBUM IN/CR EATIN INE RATIO PANEL , URINE creatinine urine 96.6 mg/dL 30.0-1 25.0 Not Available [address], [address], 03/04/2025 13:36:54 03/04/20 25 03/04/2025 MICRO ALBUM IN/CR EATIN INE RATIO PANEL , URINE microalb/cre at ratio 40.7 mg/g_ creat 0.0-29 .0 high Not Available [address], [address], 03/04/2025 13:36:54 03/04/20 25 03/04/2025 TSH TSH 1.57 uIU/m L 0.50-6 .00 The Ameri can Colle ge of Endoc rinol ogy and Ameri can Thyro id Assoc iatio n recom mend goal TSH value s betwe en 0.4-4 .0 mIU/m L. Not Available [address], [address], 03/04/2025 14:05:39 03/04/20 25 03/04/2025 BASIC METAB OLIC PANEL glucose 188 mg/dL 70-100 high Not Available [address], [address], 03/04/2025 15:49:00 03/04/20 25 03/04/2025 BASIC METAB OLIC PANEL BUN 17 mg/dL 7-18 Not Available [address], [address], 03/04/2025 15:49:00 03/04/20 25 03/04/2025 BASIC METAB OLIC PANEL creatinine 1.0 mg/dL 0.8-1. 3 Not Available [address], [address], 03/04/2025 15:49:00 03/04/20 25 03/04/2025 BASIC METAB OLIC PANEL B/C 17.0 ratio Not Available [address], [address], 03/04/2025 15:49:00 03/04/20 25 03/04/2025 BASIC METAB OLIC PANEL GFR >=60ML /MIN mL/mi [...] by race, does not apply to child brnat (age <18 years ), and shoul d not be used in pregn flavio. Not Available [address], [address], 03/04/2025 15:49:00 03/04/20 25 03/04/2025 BASIC METAB OLIC PANEL sodium 142 mmol/ L 136-14 5 Not Available [address], [address], 03/04/2025 15:49:00 03/04/20 25 03/04/2025 BASIC METAB OLIC PANEL potassium 4.8 mmol/ L 3.5-5. 1 Not Available [address], [address], 03/04/2025 15:49:00 03/04/20 25 03/04/2025 BASIC METAB OLIC PANEL chloride 106 mmol/ L 96-107 Not Available [address], [address], 03/04/2025 15:49:00 03/04/20 25 03/04/2025 BASIC METAB OLIC PANEL anion gap 8.0 5.0-15 .0 Not Available [address], [address], 03/04/2025 15:49:00 03/04/2003/04/2025 BASIC METAB OLIC PANEL CO2 28 mmol/ L 21-32 Not Available [address], [address], 03/04/2025 15:49:00 03/04/20 25 03/04/2025 BASIC METAB OLIC PANEL calcium 9.1 mg/dL 8.5-10 .3 Not Available [address], [address], 03/04/2025 15:49:00 03/04/20 25 03/04/2025 LIPID PANEL cholesterol 101 mg/dL <200 mg/dl Iam able 200-2 39 mg/dl Borde rline High >240 mg/dl High Not Available [address], [address], 03/04/2025 15:49:01 03/04/20 25 03/04/2025 LIPID PANEL triglyceride s 55 mg/dL <150 mg/dL Vanita l 150-1 99 mg/dL Borde rline High 200-4 99 mg/dL High >500 mg/dL Very High Not Available [address], [address], 03/04/2025 15:49:01 03/04/20 25 03/04/2025 LIPID PANEL direct HDL 41 mg/dL <40 mg/dl - Major Risk for CHD >60 mg/dl - Negat brandon Risk for CHD Not Available [address], [address], 03/04/2025 15:49:01 03/04/20 25 03/04/2025 DIREC T LDL direct LDL 52 mg/dL RISK CATEG ORY LDL GOAL _ CHD or CHD Risk Equiv alent s <100 mg/dl (10-y ear risk >20%) 2+ Risk Facto rs <130 mg/dl (10-y ear risk <= 20%) 0-1 Risk Facto r? <160 mg/dl ? Almos t all peopl e with 0-1 risk facto r have a 10 year risk <10%, thus 10 year risk asses ment in peopl e with 0-1 risk facto r is not melonie shayla. Not Available [address], [address], 03/04/2025 15:49:02 03/10/20 , echoc ardio gram, trans thora cic, compl ete No observ ation record ed. raul Not Available 2024 12:56:59 03/11/2003/01/2025 talat r monit or No observ ation record ed. raul [facility] [address], [place], [address], 03/11/2025 16:22:29 Result Notes None recorded. Problems Name Problem SNOMED Code Status Onset Date Resolution Date Notes Provider Name and Address Organization Details Recorded Time Atrial fibrillat ion 11071172 Active 2014 Not Available [facility] 4 01:33:21 Diabetes mellitus 99990937 Active 2015 Not Available [facility] 4 01:33:22 Essential hypertens ion 32803245 Active 2015 Not Available [facility] 4 01:33:21 Hyperlipi demia 20925322 Active 2015 Not Available [facility] 4 01:33:21 Osteoarth ritis 061193160 Active 2015 neck, knee, hands Not Available [facility] 4 01:33:21 Hypothyro idism 69832331 Active 2015 Not Available [facility] 4 01:33:21 Seasonal allergy 020813058 Active 2016 Not Available [facility] 4 01:33:21 Pain of joint of elbow 572769422 Completed 201610/01/2019 Kathy May MD [address] [place] [address], [address] , [facility] 9 14:21:17 Benign prostatic hyperplas ia with outflow obstructi on 188038441 Active 2017 Not Available [facility] 4 01:33:21 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 350908238 Active 2018 Not Available [facility] 4 01:33:21 Degenerat ion of lumbar intervert ebral disc 56885551 Active 2019 Not Available [facility] 4 01:33:21 Obstructi ve sleep apnea syndrome 51851189 Active 2020 Not Available [facility] 4 01:33:22 Polymyalg ia rheumatic a 62414663 Completed 202211/14/2023 Kathy May MD [address] [place] [address], [address] , [facility] 3 10:50:43 Rheumatoi d arthritis 15377717 Active 2022 Not Available [facility] 4 01:33:21 Spinal stenosis in cervical region 00664484 Active 2023 Kathy May MD [address] [place] [address], [address] , [facility] 5 11:06:55 Diabetic periphera l neuropath y 003319842 Active 2024 Kathy May MD [address] [place] [address], [address] , [facility] 5 11:04:54 Benign essential hypertens ion 0613287 Active 2017 [facility] 5 16:11:36 Mixed hyperlipi demia 596984796 Active 2017 [facility] 5 16:11:36 Paroxysma l atrial fibrillat ion 862775054 Active 2017 [facility] 5 16:11:36 Drug therapy finding 638471004 Active 2017 [facility] 5 16:11:36 Osteoarth ritis of right knee joint 48663762524 9100 Active 2017 [facility] 5 16:11:36 Type 2 diabetes mellitus 86453732 Active 2017 [facility] 5 16:11:36 Chronic systolic heart failure 956021342 Active 2017 [facility] 5 16:11:36 Notes:Some problems listed i n Documents: #[id number], #[id number], #[id number], #[id number], #[id number] could not be added to this patient's chart. Please review these documents and add these problems to the patient's chart manually as needed. Problem Notes None recorded. Procedures Surgical History Date Name Laterality Status Provider Name and Address Organization Details Recorded Time 03/30/20 95912: Neuromuscular Re-Education completed Nagi Whitman, PT [address] [place], [address], [facility] 04/01/2025 09:23:38 03/30/20 Treatment and Advice completed Nagi Whitman, PT [address] [place], [address], [facility] 03/30/2025 12:50:56 03/10/20 Medicare Wellness Visit completed Kathy Tinajero MA [facility] 03/08/2025 11:50:25 02/03/20 74759: Neuromuscular Re-Education completed Nagi Whitman, PT [address] [place], [address], [facility] 02/02/2025 15:07:00 02/03/20 Treatment and Advice completed Nagi Whitman, PT [address] [place], [address], [facility] 02/02/2025 14:34:48 01/05/20 06362: Neuromuscular Re-Education completed Nagi Whitman, PT [address] [place], [address], [facility] 01/05/2025 12:12:05 01/05/20 Treatment and Advice completed Nagi Whitman, PT [address] [place], [address], [facility] 01/05/2025 12:06:35 12/22/19 72994: Neuromuscular Re-Education completed Nagi Whitman, PT [address] [place], [address], [facility] 12/22/2024 13:34:51 12/22/19 Treatment and Advice completed Nagi Whitman, PT [address] [place], [address], [facility] 12/22/2024 13:18:54 12/08/19 35220: Therapeutic Exercise completed Nagi Whitmna, PT [address] [place], [address], [facility] 12/08/2024 10:31:52 12/08/19 Treatment and Advice completed Nagi Whitman, PT [address] [place], [address], [facility] 12/08/2024 10:28:48 11/05/20 76845: Therapeutic Exercise completed Nagi Whitman, PT [address] [place], [address], [facility] 11/05/2024 14:35:21 11/05/20 Treatment and Advice completed Nagi Whitman, PT [address] [place], [address], [facility] 11/05/2024 14:34:16 10/15/20 41330: Therapeutic Exercise completed Nagi Whitman, PT [address] [place], [address], [facility] 10/15/2024 18:20:55 10/15/20 Treatment and Advice completed Nagi Whitman, PT [address] [place], [address], [facility] 10/15/2024 15:04:06 09/29/20 28041: Therapeutic Exercise completed Nagi Whitman, PT [address] [place], [address], [facility] 09/29/2024 10:37:55 09/29/20 Treatment and Advice completed Nagi Whitman, PT [address] [place], [address], [facility] 09/29/2024 10:02:22 09/15/20 79829: Therapeutic Exercise completed Nagi Whitman, PT [address] [place], [address], [facility] 09/15/2024 10:35:38 09/15/20 24 Treatment and Advice completed Nagi Whitman, PT [address] [place], [address], [facility] 09/15/2024 10:29:49 09/08/20 56086: Therapeutic Exercise completed Nagi Whitman, PT [address] [place], [address], [facility] 09/08/2024 11:02:59 09/08/20 Treatment and Advice completed Nagi Whitman, PT [address] [place], [address], [facility] 09/08/2024 10:57:27 09/03/20 [id number]: Therapeutic Exercise completed Nagi Whitman, PT [address] [place], [address], [facility] 09/03/2024 14:23:47 09/03/20 Treatment and Advice completed Nagi Whitman, PT [address] [place], [address], [facility] 09/03/2024 12:12:37 09/01/20 78073: Therapeutic Exercise completed Nagi Whitman, PT [address] [place], [address], [facility] 09/01/2024 10:29:53 09/01/20 Treatment and Advice completed Nagi Whitman, PT [address] [place], [address], [facility] 09/01/2024 10:00:08 08/27/20 25532: Therapeutic Exercise completed Nagi Whitman, PT [address] [place], [address], [facility] 08/27/2024 12:04:26 08/27/20 Treatment and Advice completed Nagi Whitman, PT [address] [place], [address], [facility] 08/27/2024 12:00:40 08/25/20 73907: Therapeutic Exercise completed Nagi Whitman, PT [address] [place], [address], [facility] 08/27/2024 10:53:41 08/25/20 Treatment and Advice completed Nagi Whitman, PT [address] [place], [address], [facility] 08/25/2024 11:11:05 08/18/20 Physical Activity Counselling completed Nagi Whitman, PT [address] [place], [address], [facility] 08/18/2024 10:10:16 08/18/20 13660: PT Eval Low Complexity completed Nagi Whitman, PT [address] [place], [address], [facility] 08/18/2024 10:10:16 08/18/20 Treatment and Advice completed Nagi Whitman, PT [address] [place], [address], [facility] 08/18/2024 10:42:21 10/11/20 16 97500: Therapeutic Exercise completed Murali Smith, PT, DPT, [address], [address], [facility] 10/11/2016 09:31:04 10/11/20 16 73188: Manual Therapy completed Murali Smith, PT, DPT, [address], [address], [facility] 10/11/2016 09:31:09 10/01/20 16 57869: PT Evaluation completed Murali Smith PT, DPT, [address], [address], [facility] 10/01/2016 13:41:44 09/25/20 Medicare Wellness Visit completed Kathy May MD [address] [place] [address], [address], [facility] 09/25/2016 [...] mg tablet TAKE 1 TABLET BY MOUTH ONCE DAILY 2024 active Not Available Not Available Not Avai lable prednison e 10 mg tablet Take 1 [...] active Not Available Not Available Not Available amoxicill in 500 mg tablet TAKE 1 TABLET BY MOUTH EVERY 8 HOURS TILL GONE FOR 7 DAYS 03/10 completed Not Available Not Available Not Available [...] Not Available Not Avai lable lisinopri l 10 mg tablet TAKE 1 [...] Not Available lisinopri l 30 mg tablet TAKE 1 TABLET BY MOUTH DAILY 2024 active Not Available Not Available Not Avai lable gabapenti n 300 mg capsule TAKE 2 [...] e 137 mcg (0.1 %) nasal spray Dennard 2 sprays twice a day by intranas [...] Pen 40 mg/0.8 mL subcutane ous kit 0.8 mL every 2 weeks by sub-q route. active Not Available Not Available No [...] Not Available Not Avai lable Fluzone High-Dose 9217-9233 (PF) 180 mcg/0.5 mL intramusc ular syringe TO BE ADMINIST ERED BY PHARMACI ST FOR IMMUNIZA TION 04/02 completed Not Available Not Available Not Available Vitals Date Recorded Body height Heart rate Systolic blood pressure Diastolic blood pressure Provider Name and Address Organization Details Last Updated DateTime 01/01/2025 180.85 cm 58 /min 142 mm[Hg] 74 mm[Hg] Wilma Darby LPN [facility] 01/01/2025 10:43:24 Date Recorded Body height Body mass index (BMI) Body weight Body temperature Heart rate Oxygen saturation Oxygen saturation in Arterial blood by Pulse oximetry Systolic blood pressure Diastolic blood pressure Provider Name and Address Organization Details Last Updated DateTime 180.85 cm 23.6 kg/m2 10893.5 g 96 [degF] 66 /min 98 % 98 % 128 mm[Hg] 62 mm[Hg] Kathy Tinajero MA [facility] 5 16:10:07 Social History Question Answer Notes LastModified by Organization Details LastModified Time Tobacco Smoking Status Former Smoker in 20's only [facility] 04/28/2016 09:34:03 Do You Have An Advance Directive? Yes [email or web address] Information not available 12/18/2022 Are You Blind Or Do You Have Difficulty Seeing? No Information not available 11/13/2022 What Is Your Level Of Caffeine Consumption? Occasional Cup Daily Information not available 11/13/2022 How Much Tobacco Do You Chew? None Information not available 06/12/2016 What Type Of Diet Are You Following? REGULAR Information not available 11/13/2022 Which Illicit Or Recreational Drugs Have You Used? No Information not available 09/26/2017 Education Post Graduate [email or web address] Information not available 12/18/2022 What Is The Highest Grade Or Level Of School You Have Completed Or The Highest Degree You Have Received? [id number] Information not available 11/13/2022 Have There Been [...] Date Of Your Most Recent Tobacco Screening? 03/10/2025 Information not available 03/10/2025 How Many Children Do You Have? 3 [...] To Smoke? No Information not available 11/13/2022 What Types Of Sporting Activities Do You Participate In? Golf Information not available 05/09/2016 General Stress Level Low [email or web address] Information not available 12/18/2022 Do You Use Sunscreen Routinely? No Information not available 11/13/2022 How Many Years Have You Smoked Tobacco? 5 Information not available 11/13/2022 Sex: Male Functional Status Question Answer Note LastModified by Organizat ion Details LastModified Time Do you use any illicit or recreational drugs? No Information not available 11/13/2022 Do you or have you ever used any other forms of tobacco or nicotine? No [email or web address] Information not available 12/18/2022 What is your level of alcohol consumption? Occasional Information not available 05/09/2016 Do you or have you ever used smokeless tobacco? Never used smokeless tobacco Information not available 11/13/2022 Are you currently employed? No Information not available 11/13/2022 What is your occupation? Retired Information not available 11/13/2022 Do you or have you ever used e-cigarettes or vape? Never used electronic cigarettes Information not available 11/13/2022 What is your exercise level? Moderate Information not available 11/09/2021 Mental Status Question Answer Note LastModified by Organization D etails LastModified Time Do you feel stressed (tense, restless, nervous, or anxious, or unable to sleep at night)? DN7460-5 Information not available 11/13/2022 Family History Relationship Description Onset Age of [...] high-dose, trivalent, PF 7 completed Not Available [facility] 12/12/2019 02:21:40 Tdap 5 completed Not Available [facility] 12/06/2023 01:33:22 zoster live 4 completed Not Available [facility] 12/06/2023 01:33:22 pneumococcal, unspecified formulation 4 completed Not Available [facility] 12/06/2023 01:33:22 Pneumococcal conjugate PCV 13 5 completed Not Available [facility] 12/06/2023 01:33:22 influenza, unspecified formulation 4 completed Not Available [facility] 12/06/2023 01:33:22 Influenza, high-dose, trivalent, PF 6 completed Not Available [facility] 12/06/2023 01:33:22 pneumococcal polysaccharide PPV23 4 completed Not Available [facility] 12/06/2023 01:33:22 Influenza, split virus, quadrivalent, preservative 8 completed [facility] 03/10/2025 16:18:16 Pneumococcal conjugate PCV 13 8 completed Not Available [facility] 12/06/2023 01:33:22 Influenza, high-dose, quadrivalent, PF 0 completed Wilma Darby LPN [facility] 09/08/2020 14:04:25 Influenza, split virus, quadrivalent, preservative 9 completed Not Available [facility] 12/06/2023 01:33:22 Influenza, split virus, quadrivalent, preservative 9 completed Not Available [facility] 12/06/2023 01:33:22 Influenza, high-dose, quadrivalent, PF 1 completed [facility] 09/06/2021 14:03:17 COVID-19, mRNA, LNP-S, PF, 30 mcg/0.3 mL dose 1 completed Not Available [facility] 12/06/2023 01:33:22 COVID-19, mRNA, LNP-S, PF, 30 mcg/0.3 mL dose 1 completed Not Available [facility] 12/06/2023 01:33:22 COVID-19, mRNA, LNP-S, PF, 30 mcg/0.3 mL dose 1 completed Not Available [facility] 12/06/2023 01:33:22 COVID-19, mRNA, LNP-S, PF, 30 mcg/0.3 mL dose 2 completed Not Available [facility] 12/06/2023 01:33:22 COVID-19, mRNA, LNP-S, PF, 30 mcg/0.3 mL dose 2 completed Not Available [facility] 12/06/2023 01:33:22 Influenza, split virus, quadrivalent, preservative 2 completed Not Available [facility] 12/06/2023 01:33:22 SARS-COV-2 (COVID-19) vaccine, UNSPECIFIED 3 completed Not Available [facility] 12/06/2023 01:33:22 influenza, unspecified formulation 3 completed Not Available [facility] 12/06/2023 01:33:22 zoster, unspecified formulation 3 completed Not Available [facility] 12/06/2023 01:33:22 zoster, unspecified formulation 4 completed Kathy May MD [address] [place] [address], [address], [facility] 03/10/2025 17:27:21 Past Encounters Encounter ID Performer Location Encounter Start Date Encounter Closed Date Diagnosis/Indication Diagnosis SNOMED-CT Code Diagnosis ICD10 Code Diagnosis Note [id number] Kathy May MD , [facility], [address] [place] [address] 04/28/2016 09:19:26 04/28/2016 10:25:43 Cough 09916437 R05 pt presents with URI sx and now ongoing cough and PND lungs sounds ronchorous and diminished but improved after updraft with duoneb no evidence of bacterial infection, sinus/ear/ pna tx below has apt in two weeks sooner f/u if not improving instr to avoid constipati on with use of codiene [id number] Kathy May MD , [facility], [address] [place] [address] 05/09/2016 14:40:00 05/09/2016 16:16:30 Screening for malignant neoplasm of colon 058537745 Z12.11 Hyperlipidemia 86991315 E78.5 pt reports good conrol, on statin, will get lipid panel Essential hypertension 63134763 I10 good control; labs orderedinc reasing metoprolol for tachycardi a Diabetes mellitus 512388 09 E11.9 reprots good controldie t/meds/exe rciselabs [...] 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 60181942 D53.1 pt takes B12, by hx was deficient/ anemicwill screen and f/u needs for ongoing supplement ation Hypothyroidism 71753601 E03.9 pt reports that often gets off kilter and needs dose adjustment [id number] Kathy May MD , [facility], [address] [place] [address] 05/15/2016 15:28:45 05/15/2016 16:52:11 Atrial flutter 2248827 I48.92 pt with more bouts of atrial [...] with ptkeep Dr Bravo apt next week [id number] Kathy May MD , [facility], [address] [place] [address] 06/12/2016 10:43:50 06/12/2016 11:20:05 Hypothyroidism 42794570 E03.9 refill meds, stableTSH 3.66 Hyperlipidemia 52379867 E78.5 stableLDL 97, HDL 41 Essential hypertension 93460717 I10 at goalnormal renal function Atrial fibrillation 4943 6004 I48.91 Lawrence this afternoonE F 35% recent imagingnor mal holter other than afib/flutt ersx with fatigue and edemawill f/u Lawrence's notes and planpt aware Diabetes mellitus 322617 09 E11.9 A1C was highpt has been focussed on heartplan to get back to checking sugars at homewatche s diet, takes medswillin g to meet with diabetes ed in future Screening for malignant neoplasm of colon 446622770 Z12.11 will consider colonoscop y after a fib tx resolved Allergic rhinitis 358729 04 J30.9 discussed neti potdust mite ppxthen consider OTC flonase [id number] Kathy May MD , [facility], [address] [place] [address] 09/25/2016 13:26:11 09/25/2016 14:20:20 Screening for disorder 842450365 Z11.59 Adult heal th examination 257387052 Z00.00 see Risk Assessment and Lifestyle Change Counseling section above Counseling 316587710 Z71 .9 Hypothyroidism 20922839 E03.9 stableannu al TSH Hyperlipidemia 88943181 E78.5 stablecont inue statin Essential hypertension 71956822 I10 not at goal here or hometc with Dr Lane ed add amlodipine 2.5 mg daily Atrial fibrillation [address] Linn moreno on decreasing amiodarone advised ongoing ETOH less than one a dayf/u Lawrence in October, echo Diabetes mellitus 944929 09 E11.9 at goalhas made improvemen ts with diet, metformin, exerciseco ntinue A1C biannualha d eye exam December but need local ophthorefe rral madesome evidence neuropathy on examstable renal function Osteoarthritis 760487136 M19.90 neck, hands, armshas had relief with PT for neck painwould like referral [id number] Murali Smith, PT, DPT, CSCS Physical Therapy, [facility] [address] [place] [address] 10/01/2016 12:53:39 10/01/2016 13:52:46 Neck pain 33728529 M54.2 Pt is a 71# y.o. male who reports to PT with c/o L greater than R sided neck pain due to arthritis# Pt presents with mild cervicotho racic scoliosis [...] outlined above. Treatment Plan: Patient to return 1-2# times per week for 4-6# weeks. 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: Pain: Decrease to 2/10 Strength: Strong DNF contractio n with functional activities ROM: Maintain full cervical AROM Joint Mobility: Increase upper cervical downglidin g on the L to be equal bilaterall y Other: Pt will be able to complete all ADLs/IADLs and recreation al activities with no more than 2/10 c/o pain [id number] Murali Smith, PT, DPT, [facility] Physical Therapy, [address] [address] 10/11/2016 09:23:33 10/11/2016 13:00:06 Neck pain 81297303 M54.2 Pt still with moderate stiffness/ hypomobili ty of L sided cervical segments in downglidin g, improved with manual techniques . At end of treatment pt noted feeling better. [id number] Murali Smith PT, DPT, CSCS Physical Therapy, [address] [address] 10/22/2016 09:29:35 10/22/2016 12:43:22 Neck pain 34111078 M54.2 Pt with improving joint mobility on the L however still considerab le difference between R segments. [id number] Murali Smith PT, DPT, [facility] Physical Therapy, [address] [address] 11/05/2016 09:29:49 11/05/2016 11:00:28 Neck pain 56768601 M54.2 Pt no longer with soft tissue nor joint restrictio ns. Pt demonstrat es HEP correctly and pain-free. Pt understood concepts of safety in a way to manage and potential future pain. Pt is aware of how to contact PT again if needed. [id number] Kathy May MD , [facility], [address] [place] [address] 04/02/2017 10:39:25 04/02/2017 11:16:48 Hypothyroidism 27248006 E03.9 stableannu al TSH Seasonal allergy 4378225 04 J30.2 has had intermitte nt sxusing fluticason eavoids other meds given cardiac issues previously hasn't needed proair Hyperlipidemia 79214247 E78.5 stablecont inue statin Essential hypertension 33638635 I10 not at goalgenera lly has higher levelsstat es Lawrence cards was okay with thisno med changes todaywill call Dr Bravo and marsha tate also recommend daily ASA Diabetes mellitus 743315 09 E11.9 stop pioglitazo neat goalhome checks lower rangef/u PSA this Atrial fibrillation 4943 6004 I48.91 has been stable, no sxmeds reduced with cardiology Prostate s pecific antigen above reference range 408446016 R97.20 up from 2.97 in 2015no new sxpt prefers monitoring now will repeat 6 monthsagre e urology referral if persistant [id number] Kathy May MD , [facility], [address] [place] [address] 05/02/2017 16:40:21 05/02/2017 17:34:57 Pain of joint of elbow 992378614 M25.529 enc to try exercises givenenc to try alternate computer station and/or use gel pad for armcould do PTf/u if sx worseningr est and ice PRN Osteoarthritis 208519702 M19.90 neck, hands, armsschedu le for right knee cortisone injection, had one over a year ago with relief, hopes to buy some more time with another injectioni nstr to do PT exercises daily?if could be developing a psoriatic component to arthritis though generally consistent pattern with use and age Essential hypertension 63640165 I10 not at goal but lower on recheckpt follows with Dr Bravo; spoke with him this weekDr Bravo's goals for patient to stay in 140-150 systolic okaypressu res at [facility] office have been betterhas f/u Dr Bravo in falltaking meds, no SE no changes in POC today taught 4-7-8 breathing today [id number] ALVINA Arambula , [facility], [address] [place] [address] 05/08/2017 09:38:25 05/08/2017 10:32:43 Screening for malignant neoplasm of colon 729795884 Z12.11 Referral for a DIRECT booked colonoscop y. This patient is a healthy ASA Class 1 or 2 patient (only mild systemic disease), or a STABLE, well controlled insulin dependent diabetic. They do not have serious cardiac disease ie AZ/angiopl asty within 1 year, symptomati c CHF; renal failure with CKD 4 or 5; take Coumadin, Plavix, Aggrenox, etc. Osteoarthr itis of knee 112798772 M17.9 Right, Cortisone injection given into R knee, tolerated procedure well, post injection instructio ns given. F/U PRN [id number] Kathy May MD , [facility], [address] [place] [address] 07/23/2017 15:35:27 07/23/2017 16:18:48 Active or passive immunization 605643000 Z23 Pain of jocelyn int of elbow 362985190 M25.529 ongoing issue forearm and elbowsome associatio n with golfsome on leftnow willing to start PTprefers E[place] Essential hypertension 97546431 I10 at goalno changes today Diabetes mellitus 105053 09 E11.9 as he is having se with metformin we will redcue and change to long actingone sx low overall great controlclo se f/u at [facility] Atrial fibrillation 4943 6004 I48.91 has been stable, no sx Thoracic back pain 91212 8004 M54.6 new BL back paintight on examlimite d forward flexionadv ised stretching , back hygienef/u at [facility] [id number] Johnna Fuentes MD [facility], [facility] [address] [place] [address] 07/25/2017 08:15:48 07/25/2017 11:46:57 [id number] Minda Pendleton Ms, PT Physical Therapy, [address] [address] 08/08/2017 10:25:05 08/08/2017 13:19:32 Pain of elbow region 84095183 M25.271 [id number] Minda Pendleton Ms, PT Physical Therapy, [address] [address] 08/12/2017 09:01:44 08/12/2017 12:21:00 Pain of elbow region 82530685 M25.406 [id number] Minda Pendleton Ms, PT Physical Therapy, [address] [address] 08/19/2017 08:58:20 08/20/2017 07:19:13 Pain of elbow region 50359776 M25.848 [id number] Minda Pendleton Ms, PT Physical Therapy, [address] [address] 08/26/2017 09:24:52 08/26/2017 13:46:46 Pain of elbow region 32032063 M25.417 [id number] Minda Pendleton Ms, PT Physical Therapy, [address] [address] 09/03/2017 09:28:05 09/03/2017 11:12:39 Pain of elbow region 66558756 M25.113 [id number] Minda Pendleton Ms, PT Physical Therapy, [address] [address] 09/12/2017 11:01:37 09/12/2017 13:46:46 Pain of elbow region 59094342 M25.508 [id number] Minda Pendleton Ms, PT Physical Therapy, [address] [address] 09/20/2017 09:10:23 09/20/2017 11:46:22 Pain of elbow region 71263278 M25.483 [id number] Kathy May MD , [facility], [address] [place] [address] 09/26/2017 10:07:57 09/26/2017 10:46:45 Adult health examination 161468909 Z00.00 see Risk Assessment and Lifestyle Change Counseling section above Counseling 289161563 Z71 .9 Screening for disorder 682238140 Z11.59 Atrial fibrillation 4943 6004 I48.91 has been stable, no sxseeing Dr Bravo who is retiring, he will see another provider in that officerece nt visitno med changesref ill metoprolol Hypothyroidism 62917723 E03.9 stableannu al TSH Osteoarthritis 208556546 M19.90 would like repeat injection right kneeaware this is not an ongoing sustainabl e planhe will continue exercisesh as done PT will look into ortho options, synvysc in spring if needed Hyperlipidemia 35801215 E78.5 stablecont inue statin Diabetes mellitus 476839 09 E11.9 at goalwould like to be able to decrease axdsV7e 6.5tolerat ing current dosessome microalbun iuriasome peripheral loss sensation BL feet laterally onlychecki ng blood sugars most days in AMadvised to check other times of day, can create a schedule for himself as he likes routineno med changes todayf/u 6 mo Essential hypertension 05970247 I10 at goal on recheckrev iews with Dr Bravo cardiology as wellmeds stayed the same after last visitcheck s at home no changes today [id number] Minda Pendleton Ms, PT Physical Therapy, [address] [address] 09/30/2017 09:24:27 09/30/2017 10:30:38 Pain of elbow region 56141157 M25.348 [id number] Minda Pendleton Ms, PT Physical Therapy, [address] [address] 10/01/2017 15:36:19 10/01/2017 15:36:34 [id number] ALVINA Arambula , [facility], [address] [place] [address] 10/08/2017 09:26:31 10/08/2017 10:13:03 Osteoarthritis of knee 626270474 M17.9 Right, Cortisone injection given into R knee, tolerated procedure well, post injection instructio ns given. 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 options with orthorefer raghavendra ta to iceokay periodic naproxen, not daily(pt doesn't like to take and tries to limit) Atrial fibrillation [address] Vázquez rhad ablation and continues to have intermitte nt sxhe has f/u with him in a few weeks Hyperlipidemia 91239169 E78.5 not on therapeuti c dosing of statinagre eable to increasef/ u labs in the fall Essential hypertension 64227127 I10 at goal on recheckrev iews with Dr Gurpreet charlton cardiology as welllisino pril dose reviewed at 20 mg Diabetes mellitus 521413 09 E11.9 at goal A1C 7meds are decreased and he feel much better with less GI SEhad eye examblood sugars at home goodDC pioglitazo ne as he is not taking and control is goodroutin e f/u at [facility] [id number] ALVINA Arambula , [facility], [address] [place] [address] 04/09/2018 07:26:36 04/09/2018 07:55:44 Osteoarthritis 878253486 M19.90 R knee Pain in right knee 98139 50429 97607 M25.561 Cortisone injection given into R knee, tolerated procedure well, post injection instructio ns given [id number] Kathy May MD , [facility], [address] [place] [address] 05/15/2018 10:28:42 05/15/2018 11:04:06 Essential hypertension 71475761 I10 not at goal today goal < 140/90will fu one month at visit Diabetes mellitus 066707 09 E11.9 at goal A1C 7doing wellchecki ng sugars and in good rangerouti ne f/u Osteoarthritis 073073704 M19.90 Dr Chaka padron cortisone inj with effectgoin g to try a bracefunct ional nowconside r Synvysc in futuredefe r TKR Hyperlipidemia 53308570 E78.5 LDL not at goal for diabetesst atin was increasedf /u labs 5 months Nocturia 473558380 R35.1 see notes below Benign pro static hyperplasia with outflow obstruction 464849593 N40.1 sx BPH has had routine PSA screening in pastprosta te it enlarged and smooth and symetrical not tenderwe will get a UAstart terazosin, discussed SE f/u one month [id number] Kathy May MD FP, [facility], [address] [place] [address] 06/13/2018 16:31:38 06/13/2018 16:55:46 Essential hypertension 02733732 I10 not at goal today goal < 140/90lowe r today than usualcould be due to terazosinn ot sx Osteoarthritis 901998348 M19.90 right kneeconsid ering replacemen tongoing pain after his knee injection Nocturia 530692649 R35.1 see notes below Benign pro static hyperplasia with outflow obstruction 601463172 N40.1 sx are much lessdoing very well with terazosinn o SE continue script [id number] Kathy May MD , [facility], [address] [place] [address] 09/30/2018 14:00:06 09/30/2018 14:56:20 Adult health examination 828966972 Z00.00 see Risk Assessment and Lifestyle Change Counseling section above Counseling 135130624 Z71 .9 Depression screening 171 061254 Z13.89 depression screening tool administer ed, entered into emr, scored and discussed, time greater than 7.5 minutes Benign ess ential hypertension 4506213 I10 Blood pressure at goallabs reviewedno changes Osteoarthritis 919662543 M19.90 right kneehas replacemen t scheduled for to be active with pain now, but walking lessNaprox en PRN, avoiding twice daily dosing and trying to to take some days off Hypothyroidism 19559853 E03.9 stableannu al TSH Mixed hyperlipidemia 267 602679 E78.2 near goalcontin ue statindiet education today Hyperlipidemia 40042572 E78.5 LDL not at goal for diabetesst atin was increasedf /u labs 5 months Essential hypertension 53394400 I10 not at goal today goal < 140/90lowe r today than usualcould be due to terazosinn ot sx Diabetes mellitus 679217 09 E11.9 slightly above goal Atrial fibrillation [address] Vázquez rhad ablation and continues to have intermitte nt sx- rare now Benign pro static hyperplasia with outflow obstruction 641659223 N40.1 ongoing sxbetter but some nights worse than othersstil l on low dose of terazosinw ill increase to five mg at HS Overweight 252248286 E66 .3 noted small gainsome LE edema today, dependentw ill followgoal working on DM mgmthealth y diet reviewed [id number] Samra Farooq NP , [facility], [address] [place] [address] 11/27/2018 10:19:36 11/27/2018 11:09:14 Preoperative cardiovascular examination 391877863 Z01.810 cleared for TKR. Osteoarthr itis of knee 942915678 M17.11 per ortho Paroxysmal atrial fibrillation 605476434 I48.0 in a fib today - paroxysmal -=should not interfere with surgery unless rapid a fib. Will need post op anticoagul ation per your protocol. We have cardiac clearance from Dr Rodríguez . Diabetes mellitus 916337 09 E11.9 stable [id number] ALVINA Arambula , [facility], [address] [place] [address] 12/30/2018 14:27:23 12/31/2018 13:36:01 Irregular heart rate 383278396 R00.8 EKG done & reviewed by HS. Pt. sent to [facility] ED. [id number] Tuan De Anda MD , [facility], [address] [place] [address] 01/07/2019 12:03:49 01/07/2019 12:42:06 Diabetes mellitus 18776843 E11.9 were high in hospitalba ck down into 110-120 range Atrial fibrillation [address] Gurpreet jacobo to schedule ablationno t sxirregula r/rate controlled today Constipation 66562357 K5 9.00 with oxycodone use and decreased mobility after knee replacemen tboosting fiber and fluidsusin g MOM and sennaadvis ed to keep regular, don't get bound up, goal daily mvmt w/o strainingm edication to achieve goalsadd colace and /or miralax Essential hypertension 55869635 I10 at goallowerr ecent hypotensio n with afibnot sx History of right total knee replacement 9974889699 153314 Z96.651 progressin g as expectedus ing oxycodone and tylenol for painfeels he still has painnot bad at nightdoesn 't like SE of oxy (constipat ion and tired and a bit forgetful/ confused)a dvised to try 1/2 dose oxy, limit as abletake tylenol three times a dayf/u with ortho as directed [id number] Kathy May MD , [facility], [address] [place] [address] 02/05/2019 14:59:14 02/06/2019 11:46:37 Essential hypertension 94826108 I10 in rangecan be higher at homefollow ed also by cardiology Atrial fibrillation 4943 6004 I48.91 and fluttersch eduling ablation for sxchecking pulsescurr ently on amiodarone 200 mg daily Diabetes mellitus 254493 09 E11.9 A1C near goalweight down with poor appetite after surgerywou ld like to keep current meds/planw atching dietagrees doesn't need to gain weighthopi ng to resume exercise routine soonokay to go to gym, for knee rehab, keep heart rate under 100 at this time until further cardiology clearancen o sx feniH4A in 3 monthsf/u May 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 657725054 E11.[address] Pollock annually for monitoring have notes from 01/2018 History of right total knee replacement 0344136409 955358 Z96.651 doing wellat goals per Dr Godoy ill some swellinggr adual return to activitya few more PT sessions left Bilateral hearing loss 38244667 H91.93 pt is not concernedw tamir feels hearing is offonly mild loss higher frequency hereagree to defer audiology eval at this point [id number] Kathy May MD , [facility], [address] [place] [address] 03/31/2019 10:10:26 03/31/2019 10:33:36 Essential hypertension 28001066 I10 in rangeat goal< 130/80 Diabetes mellitus 622057 09 E11.9 A1C near goal7.1 stable meds/diete xercise increasing zljuzV8C and f/u at [facility] Hyperlipidemia 36548222 E78.5 ongoing monitoring f/u [facility] Atrial fibrillation 4943 6004 I48.91 improved post ablationf/ u April with cardiology , likely med changes then Lesion of skin of face 4857905039 06 L98.9 severy red raised lesionssig sun exposure, golfsruddy complexion referral derm eval and tx History of right total knee replacement 5099012183 517017 Z96.651 doing wellat goals per Dr Tony ashby ongoingusi ng some compressio nstill doing PTworking up to playing golfnot using pain medication s [id number] Kathy May MD , [facility], [address] [place] [address] 10/01/2019 13:53:00 10/01/2019 14:34:48 Adult health examination 725237595 Z00.00 see Risk Assessment and Lifestyle Change Counseling section above Counseling 530360651 Z71 .9 Depression screening 171 240938 Z13.89 depression screening tool administer ed, entered into emr, scored and discussed, time greater than 7.5 minutes Hypothyroidism 15481246 E03.9 stableannu al TSH Benign pro static hyperplasia with outflow obstruction 386074326 N40.1 ongoing sxbetter with terazosin Diabetes mellitus 363883 09 E11.9 A1C near goal73 stable meds/dietc ontinue curent plan Essential hypertension 53888577 I10 in rangeat goal< 130/80 Hyperlipidemia 43228863 E78.5 ongoing monitoring close to goalon statinwill increase to 80 mg Atrial fibrillation 4943 6004 I48.91 having about weekly runs with sx afterwards in afib todayworki ng with cardiology rate controlled meeting about future ablation Insomnia 289958403 G47.0 0 newer issue for irina padron with fit bitnotes 7 hours most nights, 7.5but often in bed longerhard er to fall asleep at nightdiscu ssed possible changescon babysitter less coffee in morningcon babysitter no tv or screen two hours before bedget up if not falling asleep, quiet activitygo to bed and get up 8 hours later, no matter whatconsid er melatoninf /u as needed [id number] Nilesh Llanes MD , [facility], [address] [place] [address] 03/15/2020 14:32:58 03/16/2020 10:16:42 Pain of right hip joint 1602076402 71288 M25.551 new right hip pain, seems localized at bursahas been communicat ing w Dr Roblero who thought bursitisso me radiation down legwill do PT appt JARED and then can f/u if injection neededgoal to resume daily walksusing only Tylenol for pain, no nsaids give heart disease/an ticoag 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 769533796 E11.3299 annual visit w ophtho duedeferri ng given pandemicf/ u one month VV DM mgmt Essential hypertension 78107377 I10 in rangeat goal< 130/80on home checksnot sxno changes Atrial fibrillation 4943 6004 I48.91 less frequent sx now that MICHELLE txplans still for ablation after pandemic restrictio nsDr Zan following Obstructiv e sleep apnea syndrome 50856003 G47.33 dx and txdoing wellmanagi ng CPAPnotes less cardiac sx [id number] Nagi Whitman , PT Physical Therapy, [facility] [address] [place] [address] 03/16/2020 09:55:13 03/16/2020 14:36:54 Pain of right hip joint [id number] 10549 M25.551 74 year old male with findings most consistent with acute Right hip pain with movement coordinati on impairment . Patient has significan t functional limitation in their activities of daily living. Skilled physical therapy is needed to safely and progressiv anna address impairment s and functional limitation s as outlined below. Patient Goals: Be able to walk, climb stairs and transfer without limitation s due to right hip pain for ADLs and exercise. Clinical Goals: 1. Demonstrat e symmetric pain free active, passive and resisted motions of the hip. 2. Demonstrat e sufficient muscular endurance to meet functional demands. Treatment Plan: Patient to return for 8 visits over 12 weeks. We expect significan t change in pain, impairment and function in this time frame. Treatment to Include: Therapeuti c exercise and manual therapy [id number] Nagi Whitman , HEATHER Physical Therapy, [facility] [address] [place] [address] 03/23/2020 10:57:39 03/24/2020 08:05:38 Pain of right hip joint [id number] 16554 5.551 74 year old male with findings most consistent with acute Right hip pain with movement coordinati on impairment . Patient has significan t functional limitation in their activities of daily living. Skilled physical therapy is needed to safely and progressiv anna address impairment s and functional limitation s as outlined below. Patient Goals: Be able to walk, climb stairs and transfer without limitation s due to right hip pain for ADLs and exercise. Clinical Goals: 1. Demonstrat e symmetric pain free active, passive and resisted motions of the hip. 2. Demonstrat e sufficient muscular endurance to meet functional demands. Treatment Plan: Patient to return for 8 visits over 12 weeks. We expect significan t change in pain, impairment and function in this time frame. Treatment to Include: Therapeuti c exercise and manual therapy [id number] David Boyd MD Sports Medicine, [facility] [address] [place] [address] 03/24/2020 08:16:58 03/25/2020 12:00:38 Pain of hip region [id number] 5.551 Rubens is a 74 yo male with [...] we have an appointmen t for him. [id number] David Boyd MD Sports Medicine, [facility] [address] [facility] [place] [address] 03/29/2020 14:05:50 04/11/2020 11:41:26 Pain of hip region [id number] M25.551 Rubens is a 74 yo male [...] with me as needed for further care. [id number] Nagi Whitman , PT Physical Therapy, [address] [address] 04/06/2020 12:01:53 04/06/2020 16:28:38 Pain of right hip joint [id number] 39638 M25.551 74 year old male with findings most consistent with acute Right hip pain with movement coordinati on impairment . Patient has significan t functional limitation in their activities of daily living. Skilled physical therapy is needed to safely and progressiv anna address impairment s and functional limitation s as outlined below. Patient Goals: Be able to walk, climb stairs and transfer without limitation s due to right hip pain for ADLs and exercise. Clinical Goals: 1. Demonstrat e symmetric pain free active, passive and resisted motions of the hip. 2. Demonstrat e sufficient muscular endurance to meet functional demands. Treatment Plan: Patient to return for 8 visits over 12 weeks. We expect significan t change in pain, impairment and function in this time frame. Treatment to Include: Therapeuti c exercise and manual therapy [id number] Nagi Whitman , PT Physical Therapy, [facility] [address] [place] [address] 04/13/2020 11:33:27 04/13/2020 12:51:03 Pain of right hip joint [id number] 58895 M25.551 74 year old male with findings most consistent with acute Right hip pain with movement coordinati on impairment . Patient has significan t functional limitation in their activities of daily living. Skilled physical therapy is needed to safely and progressiv anna address impairment s and functional limitation s as outlined below. Patient Goals: Be able to walk, climb stairs and transfer without limitation s due to right hip pain for ADLs and exercise. Clinical Goals: 1. Demonstrat e symmetric pain free active, passive and resisted motions of the hip. 2. Demonstrat e sufficient muscular endurance to meet functional demands. Treatment Plan: Patient to return for 8 visits over 12 weeks. We expect significan t change in pain, impairment and function in this time frame. Treatment to Include: Therapeuti c exercise and manual therapy [id number] Nilesh Llanes MD , [facility], [address] [place] [address] 04/15/2020 09:27:50 04/19/2020 12:26:45 Atrial fibrillation [id number] I48.91 still has sx at timeson CPAP to tx apnea and to have ablation scheduled, Dr Nabeel rae Benign pro static hyperplasia with outflow obstruction [id number] N40.1 stabletera zosin tx Diabetes mellitus 704307 09 E11.9 A1C near goal7.7 stable meds/diets ome SE with metformin, go back to XL formulatio nexercise limited due to hip pain, working on [employer] blood sugarsno [id number] May Essential hypertension 32754137 I10 in rangeat goal< 130/80on home checksnot sxno changes Hyperlipidemia 77576242 E78.5 high dose statinannu al labs Hypothyroidism 27396382 E03.9 stableannu al TSH Pain of ri ght hip joint [id number] [address] [facility] [id number] Nagi Whitman , PT Physical Therapy, [facility] [address] [place] [address] 04/20/2020 11:38:03 04/20/2020 13:11:44 Pain of right hip joint [id number] 46141 M25.551 74 year old male with findings most consistent with acute Right hip pain with movement coordinati on impairment . Patient has significan t functional limitation in their activities of daily living. Skilled physical therapy is needed to safely and progressiv anna address impairment s and functional limitation s as outlined below. Patient Goals: Be able to walk, climb stairs and transfer without limitation s due to right hip pain for ADLs and exercise. Clinical Goals: 1. Demonstrat e symmetric pain free active, passive and resisted motions of the hip. 2. Demonstrat e sufficient muscular endurance to meet functional demands. Treatment Plan: Patient to return for 8 visits over 12 weeks. We expect significan t change in pain, impairment and function in this time frame. Treatment to Include: Therapeuti c exercise and manual therapy [id number] Nagi Whitman , HEATHER Physical Therapy, [address] [address] 04/27/2020 11:34:55 04/28/2020 08:29:37 Pain of right hip joint [id number] 63038 M25.551 74 year old male with findings most consistent with acute Right hip pain with movement coordinati on impairment . Patient has significan t functional limitation in their activities of daily living. Skilled physical therapy is needed to safely and progressiv anna address impairment s and functional limitation s as outlined below. Patient Goals: Be able to walk, climb stairs and transfer without limitation s due to right hip pain for ADLs and exercise. Clinical Goals: 1. Demonstrat e symmetric pain free active, passive and resisted motions of the hip. 2. Demonstrat e sufficient muscular endurance to meet functional demands. Treatment Plan: Patient to return for 8 visits over 12 weeks. We expect significan t change in pain, impairment and function in this time frame. Treatment to Include: Therapeuti c exercise and manual therapy [id number] Nagi Whitman , HEATHER Physical Therapy, [address] [address] 05/13/2020 13:00:37 05/13/2020 13:34:49 Pain of right hip joint [id number] 73355 M25.551 74 year old male with findings most consistent with acute Right hip pain with movement coordinati on impairment . Patient has significan t functional limitation in their activities of daily living. Skilled physical therapy is needed to safely and progressiv anna address impairment s and functional limitation s as outlined below. Patient Goals: Be able to walk, climb stairs and transfer without limitation s due to right hip pain for ADLs and exercise. Clinical Goals: 1. Demonstrat e symmetric pain free active, passive and resisted motions of the hip. 2. Demonstrat e sufficient muscular endurance to meet functional demands. Treatment Plan: Patient to return for 8 visits over 12 weeks. We expect significan t change in pain, impairment and function in this time frame. Treatment to Include: Therapeuti c exercise and manual therapy [id number] Nagi Whitman , PT Physical Therapy, [address] [address] 05/25/2020 13:31:31 05/30/2020 09:16:43 Pain of right hip joint [id number] 18354 M25.551 74 year old male with findings most consistent with acute Right hip pain with movement coordinati on impairment . Patient has significan t functional limitation in their activities of daily living. Skilled physical therapy is needed to safely [...] active, passive and resisted motions of the hip. 2. Demonstrat e sufficient muscular endurance to meet functional demands. ( 0) hip range of motion is improving. We have assessed that trunk rotation is also a limiting factor and tolerance in the standing and walking position. We will continue with these goals. Treatment Plan: Patient to return for 6 visits over 12 weeks. We expect significan t change in pain, impairment and function in this time frame. Treatment to Include: Therapeuti c exercise and manual therapy [id number] Nagi Whitman , PT Physical Therapy, [address] [address] 06/07/2020 09:33:48 06/07/2020 13:34:28 Pain of right hip joint [id number] 12634 M25.551 74 year old male with findings most consistent with acute Right hip pain with movement coordinati on impairment . Patient has significan t functional limitation in their activities of daily living. Skilled physical therapy is needed to safely [...] active, passive and resisted motions of the hip. 2. Demonstrat e sufficient muscular endurance to meet functional demands. ( 0) hip range of motion is improving. We have assessed that trunk rotation is also a limiting factor and tolerance in the standing and walking position. We will continue with these goals. Treatment Plan: Patient to return for 6 visits over 12 weeks. We expect significan t change in pain, impairment and function in this time frame. Treatment to Include: Therapeuti c exercise and manual therapy [id number] Nagi Whitman , PT Physical Therapy, [address] [address] 06/10/2020 15:31:57 06/13/2020 11:53:09 Pain of right hip joint [id number] 40620 M25.551 74 year old male with findings most consistent with acute Right hip pain with movement coordinati on impairment . Patient has significan t functional limitation in their activities of daily living. Skilled physical therapy is needed to safely [...] active, passive and resisted motions of the hip. 2. Demonstrat e sufficient muscular endurance to meet functional demands. ( 0) hip range of motion is improving. We have assessed that trunk rotation is also a limiting factor and tolerance in the standing and walking position. We will continue with these goals. Treatment Plan: Patient to return for 6 visits over 12 weeks. We expect significan t change in pain, impairment and function in this time frame. Treatment to Include: Miguel lyons exercise and manual therapy [id number] David Boyd MD Sports Medicine, [facility] [address] [facility] [place] [address] 06/14/2020 07:41:21 06/15/2020 14:44:19 Pain of hip region [id number] M25.551 Rubens is a 74-year-ol d male [...] injections which would require referral to a clinical applications specialist by his primary care doctor. I am of course happy to see Rubens back on an as-needed basis for further care. Low back pain 904865669 M54.5 [id number] Nagi Whitman , PT Physical Therapy, [facility] [address] [place] [address] 06/22/2020 13:03:11 06/23/2020 17:02:44 Pain of right hip joint [id number] 10599 M25.551 74 year old male with findings most consistent with acute Right hip pain with movement coordinati on impairment . Patient has significan t functional limitation in their activities of daily living. Skilled physical therapy is needed to safely [...] active, passive and resisted motions of the hip. 2. Demonstrat e sufficient muscular endurance to meet functional demands. ( 0) hip range of motion is improving. We have assessed that trunk rotation is also a limiting factor and tolerance in the standing and walking position. We will continue with these goals. Treatment Plan: Patient to return for 6 visits over 12 weeks. We expect significan t change in pain, impairment and function in this time frame. Treatment to Include: Therapeuti c exercise and manual therapy [id number] Nagi Whitman , PT Physical Therapy, [address] [address] 07/13/2020 11:56:38 07/14/2020 14:33:44 Pain of right hip joint [id number] 74109 M25.551 74 year old male with findings most consistent with acute Right hip pain with movement coordinati on impairment . Patient has significan t functional limitation in their activities of daily living. Skilled physical therapy is needed to safely [...] active, passive and resisted motions of the hip. 2. Demonstrat e sufficient muscular endurance to meet functional demands. ( 0) hip range of motion is improving. We have assessed that trunk rotation is also a limiting factor and tolerance in the standing and walking position. We will continue with these goals. Treatment Plan: Patient to return for 6 visits over 12 weeks. We expect significan t change in pain, impairment and function in this time frame. Treatment to Include: Therapeuti c exercise and manual therapy [id number] Nagi Whitman , PT Physical Therapy, [address] [address] 07/22/2020 15:01:44 07/25/2020 07:58:38 Pain of right hip joint [id number] 14969 M25.551 74 year old male with findings most consistent with acute Right hip pain with movement coordinati on impairment . Patient has significan t functional limitation in their activities of daily living. Skilled physical therapy is needed to safely [...] active, passive and resisted motions of the hip. 2. Demonstrat e sufficient muscular endurance to meet functional demands. ( 0) hip range of motion is improving. We have assessed that trunk rotation is also a limiting factor and tolerance in the standing and walking position. We will continue with these goals. Treatment Plan: Patient to return for 6 visits over 12 weeks. We expect significan t change in pain, impairment and function in this time frame. Treatment to Include: Therapeuti c exercise and manual therapy [id number] Nilesh Llanes MD , [facility], [address] [place] [address] 09/08/2020 13:14:44 09/08/2020 16:12:02 Active or passive immunization [id number] Z23 [id number] Nagi Whitman , PT Physical Therapy, [address] [address] 09/29/2020 07:30:51 10/03/2020 08:18:53 Right side sciatica [id number] 68391 M54.31 75 year old male with findings most consistent with chronic back pain with lower extremity radiating pain. This has resolved quite well since an epidural injection 2 weeks ago. Physical therapy will focus on progressio n of function. Patient has significan t functional limitation in their activities of daily living and recreation . Skilled physical therapy is needed to safely and progressiv anna address impairment s and functional limitation s as outlined below. Patient Goals: Be able to walk, stand, climb stairs and carry without limitation s to to recurrent lower extremity symptoms or low back pain. Clinical Goals: 1. Demonstrat e symmetric pain free active, passive and resisted motions of the trunk and lower extremitie s. 2. Demonstrat e sufficient muscular endurance to meet functional demands. Treatment Plan: Patient to return for 8 visits over 12 weeks. We expect significan t change in pain, impairment and function in this time frame. Treatment to Include: Therapeuti c exercise and manual therapy [id number] Nagi Whitman , HEATHER Physical Therapy, [address] [address] 10/06/2020 08:32:29 10/06/2020 11:03:15 Right side sciatica [id number] 64892 M54.31 75 year old male with findings most consistent with chronic back pain with lower extremity radiating pain. This has resolved quite well since an epidural injection 2 weeks ago. Physical therapy will focus on progressio n of function. Patient has significan t functional limitation in their activities of daily living and recreation . Skilled physical therapy is needed to safely and progressiv anna address impairment s and functional limitation s as outlined below. Patient Goals: Be able to walk, stand, climb stairs and carry without limitation s to to recurrent lower extremity symptoms or low back pain. Clinical Goals: 1. Demonstrat e symmetric pain free active, passive and resisted motions of the trunk and lower extremitie s. 2. Demonstrat e sufficient muscular endurance to meet functional demands. Treatment Plan: Patient to return for 8 visits over 12 weeks. We expect significan t change in pain, impairment and function in this time frame. Treatment to Include: Therapeuti c exercise and manual therapy [id number] Kathy May MD , [facility], [address] [place] [address] 10/07/2020 09:02:11 10/07/2020 16:45:07 Adult health examination [id number] Z00.00 see Risk Assessment and Lifestyle Change Counseling section above Counseling 142783212 Z71 .9 including cardiovasc ular risk reduction counseling Depression screening 171 277549 Z13.89 depression screening tool administer ed, entered into emr, scored and discussed, time greater than 7.5 minutes Screening for alcohol abuse 244151783 Z13.39 Atrial fibrillation 4943 6004 I48.91 has had tx and no further sxDr [facility] so far with resultssta ble on xarelto Benign pro static hyperplasia with outflow obstruction [id number] N40.1 stabletera zosin tx Diabetes mellitus 893354 09 E11.9 A1C near goal7.4 in May stable meds/dietd oing wellless exerciseho ping to change this soon with tx back painblood sugars in good range on home checks 110-130 [id number] due in Novemberwi l schedule Essential hypertension 58084529 I10 goal< 130/80on home checks usually at goalmild elev todaynot sxno changeswil l send more readings via portal Hyperlipidemia 12650794 E78.5 high dose statinannu al labsat goal Hypothyroidism 37502398 E03.9 stableannu al TSH Degenerati on of lumbar intervertebral disc 19752121 M51.36 Dr Frank ion therapy workingwil l followhopi johs for ongoign improvemen ts and return to more exercise [id number] Nagi Whitman , PT Physical Therapy, [facility] [address] [place] [address] 10/13/2020 08:33:24 10/13/2020 12:31:36 Right side sciatica 3389819751 89343 M54.31 75 year old male with findings most consistent with chronic back pain with lower extremity radiating pain. This has resolved quite well since an epidural injection 2 weeks ago. Physical therapy will focus on progressio n of function. Patient has significan t functional limitation in their activities of daily living and recreation . Skilled physical therapy is needed to safely and progressiv anna address impairment s and functional limitation s as outlined below. Patient Goals: Be able to walk, stand, climb stairs and carry without limitation s to to recurrent lower extremity symptoms or low back pain. Clinical Goals: 1. Demonstrat e symmetric pain free active, passive and resisted motions of the trunk and lower extremitie s. 2. Demonstrat e sufficient muscular endurance to meet functional demands. Treatment Plan: Patient to return for 8 visits over 12 weeks. We expect significan t change in pain, impairment and function in this time frame. Treatment to Include: Therapeuti c exercise and manual therapy [id number] Nagi Whitman , HEATHER Physical Therapy, [address] [address] 11/04/2020 14:07:23 11/04/2020 14:34:03 Right side sciatica 8153017784 37211 M54.31 75 year old male with findings most consistent with chronic back pain with lower extremity radiating pain. This has resolved quite well since an epidural injection 2 weeks ago. Physical therapy will focus on progressio n of function. Patient has significan t functional limitation in their activities of daily living and recreation . Skilled physical therapy is needed to safely and progressiv anna address impairment s and functional limitation s as outlined below. Patient Goals: Be able to walk, stand, climb stairs and carry without limitation s to to recurrent lower extremity symptoms or low back pain. Clinical Goals: 1. Demonstrat e symmetric pain free active, passive and resisted motions of the trunk and lower extremitie s. 2. Demonstrat e sufficient muscular endurance to meet functional demands. Treatment Plan: Patient to return for 8 visits over 12 weeks. We expect significan t change in pain, impairment and function in this time frame. Treatment to Include: Therapeuti c exercise and manual therapy [id number] Nagi Whitman , HEATHER Physical Therapy, [address] [address] 11/23/2020 11:34:10 11/23/2020 13:05:55 Right side sciatica [id number] 77617 M54.31 75 year old male with findings most consistent with chronic back pain with lower extremity radiating pain. This has resolved quite well since an epidural injection 2 weeks ago. Physical therapy will focus on progressio n of function. Patient has significan t functional limitation in their activities of daily living and recreation . Skilled physical therapy is needed to safely and progressiv anna address impairment s and functional limitation s as outlined below. Patient Goals: Be able to walk, stand, climb stairs and carry without limitation s to to recurrent lower extremity symptoms or low back pain. Clinical Goals: 1. Demonstrat e symmetric pain free active, passive and resisted motions of the trunk and lower extremitie s. 2. Demonstrat e sufficient muscular endurance to meet functional demands. Treatment Plan: Patient to return for 8 visits over 12 weeks. We expect significan t change in pain, impairment and function in this time frame. Treatment to Include: Therapeuti c exercise and manual therapy [id number] Kathy May MD , [facility], OFFICE [address] [place] [address] 03/28/2021 09:54:19 03/29/2021 10:22:46 Essential hypertension 76749763 I10 goal < 130/80 has not checked today at home has been at goal not sx no changes today fu at wellness visit Diabetes mellitus 836815 09 E11.9 A1C near goal 7.9 recheck April and Sep/Oct stable meds/diet 120-130 range at home when he checks stable diet limited exercise with back pain right now hopes to improve stable meds Degenerati on of lumbar intervertebral disc 35726595 M51.36 Dr Corley injection tx doing better now but has been slow still resting PT hoping in coming weeks will refer as needed Atrial fibrillation 4943 6004 I48.91 ablation/C PAP tx not sx Hypothyroidism 28923042 E03.9 mildly low TSH not sx recheck April Obstructiv e sleep apnea syndrome 13585518 G47.33 dx and tx doing well managing CPAP 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 He has had 3 epidural steroid injections since September of last year. Patient has significan t functional limitation in their activities of daily living. Skilled physical therapy is needed to safely and progressiv anna address impairment s and functional limitation s as outlined below. Patient Goals: Clinical Goals: 1. Demonstrat e pain free trunk range of motion. 2. Demonstrat es sufficient trunk muscular stability to meet functional demands. Treatment Plan: Patient to return for 8 visits over 12 weeks. We expect significan t change in pain, impairment and function in this time frame. Treatment to Include: therapeuti c exercise and manual therapy [id number] Nagi Whitman , PT Physical Therapy, [address] [address] 06/22/2021 14:56:21 06/26/2021 07:42:59 Lumbar radiculopathy [id number] M54.16 75 year old male with signs and symptoms consistent with chronic low back pain with radiating pain. He has had 3 epidural steroid injections since September of last year. Patient has significan t functional limitation in their activities of daily living. Skilled physical therapy is needed to safely and progressiv anna address impairment s and functional limitation s as outlined below. Patient Goals: Clinical Goals: 1. Demonstrat e pain free trunk range of motion. 2. Demonstrat es sufficient trunk muscular stability to meet functional demands. Treatment Plan: Patient to return for 8 visits over 12 weeks. We expect significan t change in pain, impairment and function in this time frame. Treatment to Include: therapeuti c exercise and manual therapy [id number] Nagi Whitman , PT Physical Therapy, [address] [address] 08/01/2021 10:54:12 08/01/2021 13:12:10 Lumbar radiculopathy 014230335 M54.16 75 year old male with signs and symptoms consistent with chronic low back pain with radiating pain. He has had 3 epidural steroid injections since September of last year. Patient has significan t functional limitation in their activities of daily living. Skilled physical therapy is needed to safely and progressiv anna address impairment s and functional limitation s as outlined below. Patient Goals: Clinical Goals: 1. Demonstrat e pain free trunk range of motion. 2. Demonstrat es sufficient trunk muscular stability to meet functional demands. Treatment Plan: Patient to return for 8 visits over 12 weeks. We expect significan t change in pain, impairment and function in this time frame. Treatment to Include: therapeuti c exercise and manual therapy [id number] Kathy May MD , [facility], [address] [place] [address] 08/11/2021 09:42:13 08/14/2021 09:56:39 Hypothyroidism 23509534 E03.9 TSH in rangestabl e with current dosecontin ue 125 mcg Atrial fibrillation 4943 6004 I48.91 ablation/C PAP txRRR todayon NOACnot sx Essential hypertension 99739919 I10 goal < 130/80at goalnot sxno changesBMP reviewed Diabetes mellitus 728095 09 E11.9 A1C at goal adjusted for age < 8 7.5gets good readings on blood sugar at homestable w mgmtmild peripheral neuropathy signs Obstructiv e sleep apnea syndrome 96610865 G47.33 dx and tx doing well managing CPAP Hyperlipidemia 48197939 E78.5 high dose statinannu al labsat goal Peripheral neuropathy due to type 2 diabetes mellitus 8155097412 107 E11.42 mild signs on examexcell ent foot care and integrity [id number] Ann-Marie Rodriguez , [facility], [address] [place] [address] 09/06/2021 09:50:59 09/07/2021 14:35:02 Active or passive immunization 832998752 Z23 [id number] Nagi Whitman , PT Physical Therapy, [facility] [address] [place] [address] 09/07/2021 10:28:18 09/07/2021 15:04:57 Lumbar radiculopathy 078751127 M54.16 Patient Goals: Be able to walk [...] exercise program to address his remaining deficits. [id number] MD WILL Amador, [facility], [address] [place] [address] 11/09/2021 10:02:48 11/09/2021 11:00:32 Adult health examination 317222664 Z00.00 see Risk Assessment and Lifestyle Change Counseling section above Counseling 428198840 Z71 .9 including cardiovasc ular risk reduction counseling Depression screening 171 199837 Z13.31 depression screening tool administer ed, entered into emr, scored and discussed, time greater than 7.5 minutes Screening for alcohol abuse 611182848 Z13.39 Atrial fibrillation 4943 6004 I48.91 ablation/C PAP txRRR todayon NOACnot sx Benign pro static hyperplasia with outflow obstruction 374953015 N40.1 stabletera zosin tx Degenerati on of lumbar intervertebral disc 61847057 M51.36 Dr Corley injection txsx get better and worsenotes overall progressio nstaying active as ablegoing to try recumbant stationary bike Diabetes mellitus 146424 09 E11.9 A1C at goal adjusted for age < 8 7.5gets good readings on blood sugar at homestable w mgmtmild peripheral neuropathy signs Hyperlipidemia 14704234 E78.5 high dose statinannu al labsat goal 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 368723247 E11.3299 followed by ophtho no vision changes Hypothyroidism 39429764 E03.9 TSH elevatedno t sxraised levo and f/u labs in Nov Osteoarthritis 670801470 M19.90 ongoing issues back and hands and kneesdiscu ssed management pain controlexe rciseanti- inflammato ry diet Venous sta sis edema of bilateral lower limbs 9336419529 9113170 I87.2 LE edemanotes improved but ongoingwil ling to try compressio nwill order [id number] MD WILL Amador, [facility], [address] [place] [address] 05/10/2022 09:49:55 05/16/2022 17:07:59 Essential hypertension 11616527 I10 goal < 130/80at goal notes some sx lightheade d, episodedec rease amlodipine to 5 mgf/u one month 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 619087812 E11.3299 followed by ophtho no vision changes Atrial fibrillation 4943 6004 I48.91 on NOACnot sxstablera te control Degenerati on of lumbar intervertebral disc 56726815 M51.36 Dr Corley injection txrecent steroid injection 2 weeks agostaying active Diabetes mellitus 671861 09 E11.9 A1C at goal adjusted for age < 8 7.3encoura ged to check sugars for sx?ing lower bp or sugars causing sxadvised to tx and sx lows even if his blood sugar meter not on hand Hypothyroidism 12698648 E03.9 TSH in rangelower in Nov, normal Marchrepea t next labs for stability Benign pro static hyperplasia with outflow obstruction 596562354 N40.1 noting some increase nighttime sx but intermitte ntmonitor for nowterazos [place] [id number] Kathy May MD , [facility], [address] [place] [address] 06/13/2022 15:51:26 06/14/2022 10:53:37 Essential hypertension 45569191 I10 goal < 130/80near ly at goal here todaymostl y at goal at home no longer lightheade d on less amlodipine will leave on lower dose and f/u at wellness Benign pro static hyperplasia with outflow obstruction 122399656 N40.1 ongoing increased nocturiawo uld like it to be lesson terazosinu rology referral for further considerat ion tx options [id number] Kathy May MD , [facility], [address] [place] [address] 08/28/2022 08:57:43 08/28/2022 10:18:54 Stiff neck 136209883 M43.6 noted on examsx are more acute with shoulder painsome radicular sx on right armPT for tx to startadvis ed gentle ROMcontinu e tylenol Pain of ri ght shoulder joint 6693026340 2459522 M25.511 check labs for PMR/lymemo re acute onset limitation right shoulderno manny left on exampain right armno injury or new activitywo rse in AMcannot take nsaidstaki ng tylenolsta rt PTtx PMR if labs dx [id number] Kathy May MD , [facility], [address] [place] [address] 09/12/2022 08:34:44 09/12/2022 13:52:49 Lyme disease 83499566 A69.20 positive lyme, sxwas tx for PMR working dxhe had pain again in shoulder when missed a dose of prednisone we will try to wean him off prednisone he is tolerating doxyhe has no other sx or complaints repeat labs todayf/u three weeks Atrial fibrillation 4943 6004 I48.91 on NOACnot sxstablera te control Hypothyroidism 68072551 E03.9 TSH was low in crea sed levorepeat TSHno sx (other than as related above) Essential hypertension 94108279 I10 goal < 130/80at goal on recheck [id number] Randy Wilder MD , [facility], [address] [place] [address] 09/17/2022 17:13:53 10/25/2022 13:54:07 COVID-19 680378326 U07.1 Tested positive on Saturday09/14/22Sx improving, currently mild Exposure t o SARS-CoV-2 182240660 Z20.828 Will consider paxlovid but on prednisone and other meds that may interactWi ll discuss with PCP and f/u with pt tomorrow (Saturday)P t will fu if sx worsen - pt & in agreement w plan. [id number] Kathy May MD , [facility], [address] [place] [address] 10/03/2022 09:30:38 10/03/2022 16:10:18 Lyme disease 15256524 A69.20 treated 28 dayssee notes below re joint painsno other sx Pain of mu ltiple joints 27341284 M25.50 more right UE, wrist to shoulderbe tter on prednisone at higher doselittle relief on 5 mg, some at 7.5, much less to no pain on 10 mghas rheum appt Nov 07will increase pred to 10 mg pending this apptrepeat labswas thought to be PMR, then dx lyme and had COVID in interimunc lear why still pain after lyme tx Diabetes mellitus 322717 09 E11.9 A1C at goal adjusted for age < 8 7.9 has had higher readings on prednisone and now lowerhe is watching dietwishes to be more active, which he can do if he keeps with prednisone for pain mgmtlabs reviewedon ly urine microalb due before wellnesswi ll do sooner as he is going to lab re abovecan cancel appt for lab in [id number] Kathy May MD , [facility], [address] [place] [address] 10/31/2022 10:37:28 10/31/2022 15:03:55 Diabetes mellitus 72913216 E11.9 A1C at 9.6, NOT at goal adjusted for age < 8 increase glimepirid e to 8 mg has had higher readings on prednisone he is watching diet Degenerati on of lumbar intervertebral disc 99414302 M51.36 appt with surgeon on 11/13had gotten rx for diclofenac but advised not to use with prednisone Essential hypertension 21677078 I10 goal is < 130/80, NOT at goal izham113/6 4 in office, similar readings at home since stopping amlodipine will not add another agent or increase lisinopril at this time given upcoming apptswill follow up after appointmen ts this monthPotas sium decreased from 5.9 to 5.2 with discontinu ation of CCB Pain of mu ltiple joints 87415000 M25.50 more right UE, wrist to shoulder, hips, kneesbette r on prednisone at higher dose, recently exacerbate d with putting up xmas treedecrea sed to 7.5 mg since last apptadvise d to not increase dose d/t elevated A1chas rheum appt Nov [id number] Kathy May MD , [facility], [address] [place] [address] 11/13/2022 11:36:00 11/13/2022 12:07:51 Adult health examination 939420248 Z00.00 see Risk Assessment and Lifestyle Change Counseling section above Counseling 225219028 Z71 .9 including cardiovasc ular risk reduction counseling Depression screening 171 993997 Z13.31 depression screening tool administer ed, entered into emr, scored and discussed, time greater than 7.5 minutes Screening for alcohol abuse 459259079 Z13.39 Polymyalgi a rheumatica 55128533 M35.3 saw rheumfelt correct w dxon steroids but mildly sx stillgiven higher sugars thinking about moving to methotrexa te txhas f/u mid Novemberrec ommended PTpt likely to do this in November and wants [facility], referral placed for easereassu maryam todaygoal to get off steroids and mgmt sx Degenerati on of lumbar intervertebral disc 44111767 M51.36 appt with surgeon on 11/13ink ing about possible procedure to release pressurefi nds that radiating back pain does affect his goal of walking 3 miles daily Diabetes mellitus 933274 09 E11.9 A1C at 9.6, NOT at goal adjusted for age < 8 increased glimepirid e to 8 mg this monththis is secondary to steroid txgoals right now to find alt mgmt to PMR and come off steroidsco ntinue healthy dietexerci se as toleratedc ontinue medscheck A1C in 3 months Essential hypertension 78428671 I10 close to [id number]/6 0sno changes at this timef/u 3 months Hypothyroidism 81523470 E03.9 TSH in range Octcontinu e currentrec heck for stability 3 mo Atrial fibrillation 4943 6004 I48.91 on NOACnot sxstablera te control Benign pro static hyperplasia with outflow obstruction 007249501 N40.1 feels sx well managed at this time [id number] Nagi Whitman , PT Physical Therapy, [address] [address] 12/13/2022 16:07:43 12/14/2022 08:12:50 Pain of left shoulder joint 7291151692 0538354 M25.512 77 year old male with findings most consistent with Joint mobility deficit in the shoulders and wrists coincident al with differenti al diagnosis of polymyalgi a rheumatica or rheumatoid arthritis. He is also scheduled for back surgery on January 04. Patient has significan t functional limitation in their activities of daily living and exercise capacity. Skilled physical therapy is needed to safely [...] motions of the neck and upper extremitie s shoulder elbow, forearm and wrist trun k and lower extremitie s hip knee ankle hillary ulder and wrists. 2. Demonstrat e sufficient muscular endurance to meet functional demands. Treatment Plan: Patient to return for 8 visits over 12 weeks. We expect significan t change in pain, impairment and function in this time frame. Treatment to Include: Therapeuti c exercise and manual therapy Pain of ri ght shoulder joint 8587912141 4021941 M25.703 [id number] Kathy May MD , [facility], [address] [place] [address] 12/18/2022 09:34:18 12/18/2022 17:26:39 Pre-surgery evaluation 695407837 Z01.818 clear for his surgery with Dr Medina done with cardiology last week and reviewedla bs UTD in [facility] re to hold Xarelto 2 days before and after procedure Diabetes mellitus 502930 09 E11.9 A1C at 9.6, NOT at goal adjusted for age < 8 discussed incr to 3 500 mg metformin and watch GI SEhe will try and stop if he doesn't tolerate and go back to 2 500 mg tabshe is on the extended releasedie t stableongo ing efforts with activityty ring to come off prednisone working with rheum Atrial fibrillation 4947 6004 I48.91 on NOACnot sxstablera te controlcar diology last week Degenerati on of lumbar intervertebral disc 27833055 M51.36 pt is clear for his decompress ion with Dr Julian 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 PMR or RAon hydroxychl oroquine and pred now with goal to wean prednisone after surgery [id number] Nagi Whitman , PT Physical Therapy, [facility] [address] [place] [address] 12/20/2022 16:26:59 12/21/2022 09:35:21 Pain of left shoulder joint 4746007346 6697001 M25.512 77 year old male with findings most consistent with Joint mobility deficit in the shoulders and wrists coincident al with differenti al diagnosis of polymyalgi a rheumatica or rheumatoid arthritis. He is also scheduled for back surgery on January 04. Patient has significan t functional limitation in their activities of daily living and exercise capacity. Skilled physical therapy is needed to safely [...] motions of the neck and upper extremitie s shoulder elbow, forearm and wrist trun k and lower extremitie s hip knee ankle hillary ulder and wrists. 2. Demonstrat e sufficient muscular endurance to meet functional demands. Treatment Plan: Patient to return for 8 visits over 12 weeks. We expect significan t change in pain, impairment and function in this time frame. Treatment to Include: Therapeuti c exercise and manual therapy Pain of ri ght shoulder joint 5864942884 3411004 M25.074 [id number] Nagi Whitman , PT Physical Therapy, [facility] [address] [place] [address] 12/27/2022 09:49:08 12/27/2022 10:41:50 Pain of left shoulder joint 1352221304 2960354 M25.512 77 year old male with findings most consistent with Joint mobility deficit in the shoulders and wrists coincident al with differenti al diagnosis of polymyalgi a rheumatica or rheumatoid arthritis. He is also scheduled for back surgery on January 04. Patient has significan t functional limitation in their activities of daily living and exercise capacity. Skilled physical therapy is needed to safely [...] motions of the neck and upper extremitie s shoulder elbow, forearm and wrist trun k and lower extremitie s hip knee ankle hillary ulder and wrists. 2. Demonstrat e sufficient muscular endurance to meet functional demands. Treatment Plan: Patient to return for 8 visits over 12 weeks. We expect significan t change in pain, impairment and function in this time frame. Treatment to Include: Therapeuti c exercise and manual therapy Pain of ri ght shoulder joint 0709894777 9360421 M25.273 [id number] Kathy May MD , [facility], [address] [place] [address] 02/13/2023 09:33:22 02/13/2023 10:38:45 Diabetes mellitus 64601685 E11.9 A1C up to 10, NOT at [...] follows Degenerati on of lumbar intervertebral disc 01495913 M51.[address] Julian and is doing wellless pain Polymyalgi a rheumatica 98189358 M35.3 working with rheumon hydroxychl oroquine and weaning prednisone some sx recurringh e has f/u in three mowill see how he does on prednisone weannoting that likely source of liver enzymes up is from hydroxychl oroquinewi ll update rhuem after labs Elevated l evel of transaminase and lactic acid dehydrogenase 648419443 R74.01 w/u below though suspect drug SE as noted abovef/u with rheum after labs Hypothyroidism 35614433 E03.9 TSH up to 5continue currentrec heck for stability 3 mo [id number] Nagi Whitman , PT Physical Therapy, [address] [address] 02/12/2023 14:53:43 02/13/2023 09:10:32 Pain of right shoulder joint 6331029237 4915509 M25.511 Muscle weakness 25619251 M62.81 [id number] Nagi Whitman , PT Physical Therapy, [address] [address] 02/19/2023 16:17:42 02/20/2023 08:46:59 Pain of right shoulder joint 6995568156 1364674 M25.511 77 year old male with findings most consistent with chronic right shoulder pain, lower extremity weakness and neuropathy Patient has significan t functional limitation in their activities of daily living and recreation . Skilled physical therapy is needed to safely [...] active, passive and resisted motions of the shoulder. 2. Demonstrat e sufficient muscular endurance to meet functional demands. 3. Demonstrat e 5/5 strength throughout the lower extremitie s.4. Demonstrat e active ankle dorsiflexi on to 10? ? ? and active plantar flexion through full available range of motion in single leg stance. 5. Demonstrat e feet together balance with eyes closed for 10 seconds, demonstrat e tandem balance 10 seconds 5 out of 5 attempts. Treatment Plan: Patient to return for 8 visits over 12 weeks. We expect significan t change in pain, impairment and function in this time frame. Muscle weakness 32160478 M62.81 [id number] Nagi Whitman , PT Physical Therapy, [address] [address] 03/05/2023 12:19:23 03/05/2023 13:17:48 Pain of right shoulder joint 1327418301 4693971 M25.511 77 year old male with findings most consistent with chronic right shoulder pain, lower extremity weakness and neuropathy Patient has significan t functional limitation in their activities of daily living and recreation . Skilled physical therapy is needed to safely [...] active, passive and resisted motions of the shoulder. 2. Demonstrat e sufficient muscular endurance to meet functional demands. 3. Demonstrat e 5/5 strength throughout the lower extremitie s.4. Demonstrat e active ankle dorsiflexi on to 10? ? ? and active plantar flexion through full available range of motion in single leg stance. 5. Demonstrat e feet together balance with eyes closed for 10 seconds, demonstrat e tandem balance 10 seconds 5 out of 5 attempts. Treatment Plan: Patient to return for 8 visits over 12 weeks. We expect significan t change in pain, impairment and function in this time frame. Muscle weakness 41034700 M62.81 [id number] Kathy May MD , [facility], [address] [place] [address] 03/20/2023 08:39:34 03/20/2023 12:19:32 Diabetes mellitus 97077555 E11.9 blood sugars are coming down on prednisone ranging 130-190die t stable, exercising regularly discussed other med options agree no changes today given improvingf /u labs 2 months Essential hypertension 91701955 I10 at goal< 130/80 Psoriasis 0154548 L40.9 notes some eruptions on right legconsist ent with psoriasis, not pruriticno te this is possible SE on Hydroxychl oroquinehe will treat topically and monitor Polymyalgi a rheumatica 75709101 M35.3 following with rheumatolo gyweaning prednisone taking hydroxychl oroquinemo nitoring Degenerati on of lumbar intervertebral disc 74373024 M51.[address] Eliel Escobar ght sided pain resolvedno w more left sided sxseeing PSS tomorrow [id number] Nagi Whitman , PT Physical Therapy, [address] [address] 03/14/2023 09:24:51 03/14/2023 10:27:45 Pain of right shoulder joint 8739142164 5082116 M25.511 77 year old male with findings most consistent with chronic right shoulder pain, lower extremity weakness and neuropathy Patient has significan t functional limitation in their activities of daily living and recreation . Skilled physical therapy is needed to safely [...] active, passive and resisted motions of the shoulder. 2. Demonstrat e sufficient muscular endurance to meet functional demands. 3. Demonstrat e 5/5 strength throughout the lower extremitie s.4. Demonstrat e active ankle dorsiflexi on to 10? ? ? and active plantar flexion through full available range of motion in single leg stance. 5. Demonstrat e feet together balance with eyes closed for 10 seconds, demonstrat e tandem balance 10 seconds 5 out of 5 attempts. Treatment Plan: Patient to return for 8 visits over 12 weeks. We expect significan t change in pain, impairment and function in this time frame. Muscle weakness 21984396 M62.81 [id number] Nagi Whitman , PT Physical Therapy, [address] [address] 03/26/2023 14:19:32 03/26/2023 15:04:23 Pain of right shoulder joint 5874689467 9975976 M25.511 77 year old male with findings most consistent with chronic right shoulder pain, lower extremity weakness and neuropathy Patient has significan t functional limitation in their activities of daily living and recreation . Skilled physical therapy is needed to safely [...] active, passive and resisted motions of the shoulder. 2. Demonstrat e sufficient muscular endurance to meet functional demands. 3. Demonstrat e 5/5 strength throughout the lower extremitie s.4. Demonstrat e active ankle dorsiflexi on to 10? ? ? and active plantar flexion through full available range of motion in single leg stance. 5. Demonstrat e feet together balance with eyes closed for 10 seconds, demonstrat e tandem balance 10 seconds 5 out of 5 attempts. Treatment Plan: Patient to return for 8 visits over 12 weeks. We expect significan t change in pain, impairment and function in this time frame. Muscle weakness 49338021 M62.81 [id number] Nagi Whitman , PT Physical Therapy, [address] [address] 04/02/2023 10:49:12 04/02/2023 11:41:40 Pain of right shoulder joint 7292361715 4319982 M25.511 77 year old male with findings most consistent with chronic right shoulder pain, lower extremity weakness and neuropathy Patient has significan t functional limitation in their activities of daily living and recreation . Skilled physical therapy is needed to safely [...] active, passive and resisted motions of the shoulder. 2. Demonstrat e sufficient muscular endurance to meet functional demands. 3. Demonstrat e 5/5 strength throughout the lower extremitie s.4. Demonstrat e active ankle dorsiflexi on to 10? ? ? and active plantar flexion through full available range of motion in single leg stance. 5. Demonstrat e feet together balance with eyes closed for 10 seconds, demonstrat e tandem balance 10 seconds 5 out of 5 attempts. Treatment Plan: Patient to return for 8 visits over 12 weeks. We expect significan t change in pain, impairment and function in this time frame. Muscle weakness 33582412 M62.81 [id number] Nagi Whitman , PT Physical Therapy, [facility] [address] [place] [address] 04/09/2023 13:34:52 04/09/2023 14:46:45 Pain of right shoulder joint 9971273419 0337389 M25.511 77 year old male with findings most consistent with chronic right shoulder pain, lower extremity weakness and neuropathy Patient has significan t functional limitation in their activities of daily living and recreation . Skilled physical therapy is needed to safely [...] active, passive and resisted motions of the shoulder. 2. Demonstrat e sufficient muscular endurance to meet functional demands. 3. Demonstrat e 5/5 strength throughout the lower extremitie s.4. Demonstrat e active ankle dorsiflexi on to 10? ? ? and active plantar flexion through full available [...] motions.Tr eatment Plan: Patient to return for 4 visits over 12 weeks. We expect significan t change in pain, impairment and function in this time frame. Muscle weakness 57130100 M62.81 [id number] Nagi Whitman , PT Physical Therapy, [facility] [address] [place] [address] 04/30/2023 16:10:40 05/01/2023 11:19:35 Pain of right shoulder joint [id number] M25.511 77 year old male with findings most consistent with chronic right shoulder pain, lower extremity weakness and neuropathy Patient has significan t functional limitation in their activities of daily living and recreation . Skilled physical therapy is needed to safely [...] active, passive and resisted motions of the shoulder. 2. Demonstrat e sufficient muscular endurance to meet functional demands. 3. Demonstrat e 5/5 strength throughout the lower extremitie s.4. Demonstrat e active ankle dorsiflexi on to 10? ? ? and active plantar flexion through full available [...] motions.Tr eatment Plan: Patient to return for 4 visits over 12 weeks. We expect significan t change in pain, impairment and function in this time frame. Muscle weakness 96498707 M62.81 [id number] Kathy May MD , [facility], [address] [place] [address] 06/18/2023 09:37:08 06/18/2023 10:45:39 Cough 47464608 R05.9 occ use inhaler with sx illness Diabetes mellitus 592003 09 E11.9 blood sugars are coming downnotes much lower fastingdoe sn't like metformin, GI SE and in current arthritic pain setting this is hardtrial just one [id number] in 1-2 months Essential hypertension 70234530 I10 at goal< 130/80lowe r today, not sxcardiolo gy mgmt as well Hypothyroidism 17337654 E03.9 in range April Rheumatoid arthritis 698 51554 M06.9 working dson hydroxycho lorquine? effecthas pain, less than previoustr debbie to come off prednisone on 2mg daily now Psoriasis 1289396 L40.9 using topicalssu spect SE exacerbati on from hydroxycho lorquinewa iting for rheum appt Atrial fibrillation 4943 6004 I48.91 on NOACnot sxstablera te controlcar diology follows Degenerati on of lumbar intervertebral disc 85503877 M51.36 occ flares with painhas visit Dr Corley this Jul [id number] Nagi Whitman , PT Physical Therapy, [facility] [address] [place] [address] 06/18/2023 08:48:20 06/18/2023 13:53:20 Pain of right shoulder joint [id number] 4318541 M25.511 Patient Goals:Be able to reach, push, [...] active, passive and resisted motions of the shoulder. 2. Demonstrat e sufficient muscular endurance to meet functional demands. 3. Demonstrat e 5/5 strength throughout the lower extremitie s.4. Demonstrat e active ankle dorsiflexi on to 10? ? ? and active plantar flexion through full available [...] reached his balance exercise goals. 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 376930324 E11.3299 followed by lora no vision changeswor [place] on DM controlsee below Diabetes mellitus 320605 09 E11.9 A1C was high, > 9blood sugars coming down in past three weeks off prednisone he is willing to try 1000 mg daily dose metformin again, had some GI effects when taking on prednisone if he has SE can try splitting dose or stopcontin ue checking sugarswalk after mealsf/u at wellness Posterior rhinorrhea 758 35863 R09.82 notes sx for about six monthnight cough bothersome feels drip, mostly on left sidestart with trial nasal antihistam ine [id number] MD WILL Amador, [facility], [address] [place] [address] 11/14/2023 09:57:53 11/14/2023 13:44:51 Adult health examination 633225124 Z00.00 see Risk Assessment and Lifestyle Change Counseling section above Depression screening 171 457113 Z13.31 depression screening tool administer ed Screening for alcohol abuse 049814406 Z13.39 Alcohol use screening tool administer ed Posterior rhinorrhea 758 84766 R09.82 sx are controlled when he uses azelastine enc to continue use as neededmay stop seasonally if not sx Bilateral carpal tunnel syndrome [id number] 4841974 G56.03 new dxworking with rheumatolo gy for nowhome exercisesr ecommend splintingh as f/u with specialist at [place] for further tx mgmt per referral of Dr Coronado Atrial fibrillation 4943 6004 I48.91 on NOACnot sxstablera te controlcar diology follows Degenerati on of lumbar intervertebral disc 81387491 M51.36 chronic painwonder ing how much RA drugs will helpcan f/u with Dr Corley for other txwill review with rheumadvis ed to let his sx guide him Diabetes mellitus 963750 09 E11.9 A1Cat goal 7.5range at home 100-140 oftendoing wellnote proteinuri a, will continue tracking annually and watch renal functionco ntinue current mgmt Essential hypertension 56610025 I10 not at goal< 130/80has been good at other apptssaw cardiolgy last month, in rangemeds reviewedno changesche ck at homecall with reportf/u 6 mo or sooner if not at goal Hypothyroidism 10913021 E03.9 in rangenot sx Hyperlipidemia 36417138 E78.5 high dose statinannu al labsat goal 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 219799120 E11.3299 followed by ophtho up to date with eye careDM mgmt focus Rheumatoid arthritis 698 95073 M06.9 dual agents, Humira and methotrexa teDr Tallatf/u tomorrowho peful for ongoing pain reliefchro laura back pain, hand pain but now also some neuropathy Diabetic p eripheral neuropathy 120587364 E11.40 chronicnot es more pain in hands, carpal tunnelhas PRN gabapentin but uses this mainly for back pain [id number] Kathy May MD FP, [facility], [address] [place] [address] 04/29/2024 12:00:39 04/29/2024 12:49:53 Diabetes mellitus 25374199 E11.9 A1Cat goal 7.2attribu ami good control to good diet and regular exercisebi kes six miles most days, takes walksf/u six mono med chagnes Essential hypertension 96469352 I10 close to goal on recheckgoa l < 130/80noti ng at home can be up to 140 often, like every 3-4th checkwill increase lisinopril to 30 mghe will keep checkingf/ u if not improving f/u 6 mo at wellness routine Hypothyroidism 21742839 E03.9 in rangenot sx Rheumatoid arthritis [address] Webb owing and txunder control Diabetic p eripheral neuropathy 001034603 E11.40 chronichad confirmato ry neurologic testing w Dr Gonzalez with recent w/u for muscle wasting of hands Spinal melodie nosis in cervical region 90211206 M48.02 severe C3-4 and C5-6noting sx in UE and LEmuscle wasting, balance issueshas PT referralne eds laminectom y, neurosurge on at [place] wants to schedulept wants to see Dr Julian again, has appt in June, sent records and hoping to talk w him sooner. [id number] Nagi Whitman , PT Physical Therapy, [address] [address] 06/09/2024 11:22:41 06/11/2024 10:17:55 Spinal stenosis in cervical region 96649344 M48.02 78 year old male with findings most consistent with chronic Progressiv e upper and lower extremity weakness now attributab le to cervical myelopathy from stenosis. Today we establishe d some baseline measures and also reviewed prior exercises. I have given him some exercises for his hands address some newly found weaknesses and stiffness there. No other change to exercise. We will see him back after surgery if indicated by his surgeon. [id number] Nagi Davenport EDD Physical Therapy, [address] [address] 08/18/2024 09:55:52 08/20/2024 14:48:00 Cervical spondylosis 579684721 M47.812 79 year old male with findings most consistent with chronic Weakness in all 4 extremitie s. He [...] has significan t functional limitation in their activities of daily living and recreation . Skilled physical therapy is needed to safely [...] motions of the neck and upper extremitie s. 2. Demonstrat e sufficient muscular endurance to meet functional demands. Treatment Plan: Patient to return for 6 visits over 12 weeks. We expect significan t change in pain, impairment and function in this time frame.Lisa tment to Include as appropriat e: therapeuti c exercise (33616), manual therapy (71239), therapeuti c activity (85344), gait training (36249), neuromuscu lar reeducatio n (96662), mechanical traction (01184) [id number] Nagi Davenport ED[facility] Physical Therapy, [address] [address] 08/25/2024 10:29:19 08/28/2024 08:19:05 Cervical spondylosis 568595726 M47.812 79 year old male with findings most consistent with chronic Weakness in all 4 extremitie s. He [...] has significan t functional limitation in their activities of daily living and recreation . Skilled physical therapy is needed to safely [...] motions of the neck and upper extremitie s. 2. Demonstrat e sufficient muscular endurance to meet functional demands. Treatment Plan: Patient to return for 6 visits over 12 weeks. We expect significan t change in pain, impairment and function in this time frame.Lisa tment to Include as appropriat e: therapeuti c exercise (41720), manual therapy (49396), therapeuti c activity (11672), gait training (24096), neuromuscu lar reeducatio n (41075), mechanical traction (89294) [id number] Nagi Davenport ED[facility] Physical Therapy, [address] [address] 08/27/2024 11:28:00 08/27/2024 13:48:52 Cervical spondylosis 079313878 M47.812 79 year old male with findings most consistent with chronic Weakness in all 4 extremitie s. He [...] has significan t functional limitation in their activities of daily living and recreation . Skilled physical therapy is needed to safely [...] motions of the neck and upper extremitie s. 2. Demonstrat e sufficient muscular endurance to meet functional demands. Treatment Plan: Patient to return for 6 visits over 12 weeks. We expect significan t change in pain, impairment and function in this time frame.Lisa szymanski to Include as appropriat e: therapeuti c exercise (81971), manual therapy (24846), therapeuti c activity (87722), gait training (89065), neuromuscu lar reeducatio n (10290), mechanical traction (48447) [id number] Nagi Davenport [facility] Physical Therapy, [address] [address] 09/01/2024 09:55:46 09/01/2024 14:40:54 Cervical spondylosis 875436871 7.812 79 year old male with findings most consistent with chronic Weakness in all 4 extremitie s. He [...] has significan t functional limitation in their activities of daily living and recreation . Skilled physical therapy is needed to safely [...] motions of the neck and upper extremitie s. 2. Demonstrat e sufficient muscular endurance to meet functional demands. Treatment Plan: Patient to return for 6 visits over 12 weeks. We expect significan t change in pain, impairment and function in this time frame.Lisa tment to Include as appropriat e: therapeuti c exercise (41188), manual therapy (84047), therapeuti c activity (76063), gait training (22677), neuromuscu lar reeducatio n (34806), mechanical traction (63798) [id number] Nagi Davenport [facility] Physical Therapy, [address] [address] 09/03/2024 11:52:00 09/03/2024 15:21:32 Cervical spondylosis 740702593 M47.812 79 year old male with findings most consistent with chronic Weakness in all 4 extremitie s. He [...] has significan t functional limitation in their activities of daily living and recreation . Skilled physical therapy is needed to safely [...] motions of the neck and upper extremitie s. 2. Demonstrat e sufficient muscular endurance to meet functional demands. Treatment Plan: Patient to return for 6 visits over 12 weeks. We expect significan t change in pain, impairment and function in this time frame.Lisa tment to Include as appropriat e: therapeuti c exercise (56344), manual therapy (10266), therapeuti c activity (82482), gait training (51599), neuromuscu lar reeducatio n (01800), mechanical traction (27166) [id number] Nagi Davenport [facility] Physical Therapy, [address] [address] 09/08/2024 10:24:31 09/08/2024 12:43:04 Cervical spondylosis 958693821 M47.812 79 year old male with findings most consistent with chronic Weakness in all 4 extremitie s. Patient has significan t functional limitation in their activities of daily living and recreation . Skilled physical therapy is needed to safely and progressiv nana address impairment s and functional limitation s as outlined below. Patient Goals:To be able to Push, pull, lift, reach and carry as well as grasp for ADLs and recreation Without limitation s due to upper extremity [id number] Patient is performing a home exercise program [...] motions of the neck and upper extremitie s. 2. Demonstrat e sufficient muscular endurance to meet functional demands. 3. Demonstrat e symmetric pain-free active, passive and resisted motions of the lower extremity. 4. Demonstrat e single leg balance of 10 seconds on each leg.2023 balance and lower extremity strength is not yet at goal we will continue these goals. Treatment Plan: Patient to return for 6 visits over 12 weeks. We expect significan t change in pain, impairment and function in this time frame.Lisa tment to Include as appropriat e: therapeuti c exercise (72785), manual therapy (89836), therapeuti c activity (38916), gait training (44446), neuromuscu lar reeducatio n (40249), mechanical traction (74394) [id number] Nagi Davenport ED[facility] Physical Therapy, [address] [address] 09/15/2024 09:47:32 09/15/2024 13:15:54 Cervical spondylosis 495608767 M47.812 79 year old male with findings most consistent with chronic Weakness in all 4 extremitie s. He [...] has significan t functional limitation in their activities of daily living and recreation . Skilled physical therapy is needed to safely [...] motions of the neck and upper extremitie s. 2. Demonstrat e sufficient muscular endurance to meet functional demands. Treatment Plan: Patient to return for 6 visits over 12 weeks. We expect significan t change in pain, impairment and function in this time frame.Lisa szymanski to Include as appropriat e: therapeuti c exercise (65576), manual therapy (29764), therapeuti c activity (10222), gait training (11436), neuromuscu lar reeducatio n (16742), mechanical traction (42705) [id number] Nagi Davenport EDD Physical Therapy, [address] [address] 09/29/2024 09:50:42 09/29/2024 12:54:36 Cervical spondylosis 139087193 M47.812 79 year old male with findings most consistent with chronic Weakness in all 4 extremitie s. He [...] has significan t functional limitation in their activities of daily living and recreation . Skilled physical therapy is needed to safely [...] motions of the neck and upper extremitie s. 2. Demonstrat e sufficient muscular endurance to meet functional demands. Treatment Plan: Patient to return for 6 visits over 12 weeks. We expect significan t change in pain, impairment and function in this time frame.Lisa tment to Include as appropriat e: therapeuti c exercise (27669), manual therapy (62523), therapeuti c activity (01261), gait training (20390), neuromuscu lar reeducatio n (20915), mechanical traction (79074) [id number] KATIUSKA MCCLELLAND NP Physical Therapy, [address] [address] 10/15/2024 14:25:05 10/16/2024 12:15:46 Cervical spondylosis 581128599 M47.812 79 year old male with findings most consistent with chronic Weakness in all 4 extremitie s. He [...] has significan t functional limitation in their activities of daily living and recreation . Skilled physical therapy is needed to safely [...] motions of the neck and upper extremitie s. 2. Demonstrat e sufficient muscular endurance to meet functional demands. Treatment Plan: Patient to return for 6 visits over 12 weeks. We expect significan t change in pain, impairment and function in this time frame.Lisa tment to Include as appropriat e: therapeuti c exercise (40676), manual therapy (27096), therapeuti c activity (82082), gait training (14362), neuromuscu lar reeducatio n (92582), mechanical traction (75412) [id number] KATIUSKA MCCLELLAND NP Physical Therapy, [facility] [address] [place] [address] 11/05/2024 13:52:40 11/05/2024 14:57:03 Cervical spondylosis 804262558 M47.812 79 year old male with findings most consistent with chronic Weakness in all 4 extremitie s. He [...] has significan t functional limitation in their activities of daily living and recreation . Skilled physical therapy is needed to safely [...] motions of the neck and upper extremitie s. 2. Demonstrat e sufficient muscular endurance to meet functional demands. Treatment Plan: Patient to return for 6 visits over 12 weeks. We expect significan t change in pain, impairment and function in this time frame.Lisa tment to Include as appropriat e: therapeuti c exercise (06932), manual therapy (99460), therapeuti c activity (00411), gait training (05815), neuromuscu lar reeducatio n (33228), mechanical traction (76969) [id number] Kathy May MD , [facility], [address] [place] [address] 12/02/2024 10:34:06 12/02/2024 11:09:45 Posterior rhinorrhea 32160954 R09.82 sx are controlled when he uses azelastine continuere fill today Atrial fibrillation 4943 6004 I48.91 on NOACnot sxstablera te controlcar diology visits and holter this spring Diabetes mellitus 101410 09 E11.9 A1Cat goal 6.7he is staying activeeati ng welltaking medication working w his neuropathy sx Essential hypertension 83208803 I10 elevated here [facility]at [facility] Februarygo < 130/80no changes todayf/u with BP clinic in a monthcardi ology following as well Rheumatoid arthritis [address] Ivonne alcantar, will follow w Dr Harry woodruff changing from [facility] as no longer on free program and expensive, has enough until well controlled meeting Dr Ayala in December Bilateral hearing loss 53617665 H91.93 pt notes some issues, notes [facility] audiology apptear canals are clear Diabetic p eripheral neuropathy 349784879 E11.40 chroniccon firmed w EMG testingong oing issues w balancewor maisha w PTnormal DM foot exam Spinal melodie nosis in cervical region 83716980 M48.02 had four discs replacedsl ow recovery but feels he is improvedwo rking on regaining muscle and strenth in his hands [id number] KATIUSKA MCCLELLAND NP Physical Therapy, [facility] [address] [place] [address] 12/08/2024 09:54:51 12/10/2024 10:11:34 Cervical spondylosis 577941413 M47.812 79 year old male with findings most consistent with chronic Weakness in all 4 extremitie s. He [...] has significan t functional limitation in their activities of daily living and recreation . Skilled physical therapy is needed to safely and progressiv anna address impairment s and functional limitation s as outlined below.Adelaida ent Goals:To be able to Push, pull, lift, reach and carry as well as grasp for ADLs and recreation Without limitation s due to upper extremity [id number]. We will continue to monitor this but [...] stadium stairs at the [facility] as a proxy for his balance [...] climbing. Treatment Plan: Patient to return for 6 visits over 12 weeks. We expect significan t change in pain, impairment and function in this time frame.Lisa tment to Include as appropriat e: therapeuti c exercise (38010), manual therapy (94504), therapeuti c activity (52219), gait training (43846), neuromuscu lar reeducatio n (10462), mechanical traction (78421) [id number] KATIUSKA MCCLELLAND NP Physical Therapy, [facility] [address] [place] [address] 12/22/2024 12:49:14 12/22/2024 15:31:46 Cervical spondylosis 692531890 M47.812 79 year old male with findings most consistent with chronic Weakness in all 4 extremitie s. He [...] has significan t functional limitation in their activities of daily living and recreation . Skilled physical therapy is needed to safely and progressiv anna address impairment s and functional limitation s as outlined below.Adelaida ent Goals:To be able to Push, pull, lift, reach and carry as well as grasp for ADLs and recreation Without limitation s due to upper extremity [id number]. We will continue to monitor this but [...] stadium stairs at the [facility] as a proxy for his balance [...] climbing. Treatment Plan: Patient to return for 6 visits over 12 weeks. We expect significan t change in pain, impairment and function in this time frame.Lisa tment to Include as appropriat e: therapeuti c exercise (28905), manual therapy (64352), therapeuti c activity (48357), gait training (63349), neuromuscu lar reeducatio n (90681), mechanical traction (98438) [id number] Kathy May MD , [facility], [address] [place] [address] 01/01/2025 10:11:35 01/04/2025 12:11:24 Essential hypertension 77584794 I10 Improved but still above goal [id number] KATIUSKA MCCLELLAND NP Physical Therapy, [address] [address] 01/05/2025 11:29:07 01/05/2025 12:14:23 Cervical spondylosis 790637831 M47.812 79 year old male with findings most consistent with chronic Weakness in all 4 extremitie s. Patient has significan t functional limitation in their activities of daily living and recreation . Skilled physical therapy is needed to safely and progressiv anna address impairment s and functional limitation s as outlined below.Adelaida ent Goals:To be able to Push, pull, lift, reach and carry as well as grasp for ADLs and recreation Without limitation s due to upper extremity [id number]. We will continue to monitor this but [...] stadium stairs at the [facility] as a proxy for his balance [...] climbing. Treatment Plan: Patient to return for 6 visits over 12 weeks. We expect significan t change in pain, impairment and function in this time frame.Lisa tment to Include as appropriat e: therapeuti c exercise (52775), manual therapy (79653), therapeuti c activity (31412), gait training (04355), neuromuscu lar reeducatio n (84830), mechanical traction (71881) [id number] KATIUSKA MCCLELLAND NP Physical Therapy, [address] [address] 02/02/2025 14:31:40 02/02/2025 15:44:43 Cervical spondylosis 242971615 M47.812 79 year old male with findings most consistent with chronic Weakness in all 4 extremitie s. Patient has significan t functional limitation in their activities of daily living and recreation . Skilled physical therapy is needed to safely and progressiv anna address impairment s and functional limitation s as outlined below.Adelaida ent Goals:To be able to Push, pull, lift, reach and carry as well as grasp for ADLs and recreation Without limitation s due to upper extremity [id number]. We will continue to monitor this but [...] stadium stairs at the [facility] as a proxy for his balance [...] climbing. Treatment Plan: Patient to return for 6 visits over 12 weeks. We expect significan t change in pain, impairment and function in this time frame.Lisa tment to Include as appropriat e: therapeuti c exercise (75315), manual therapy (11568), therapeuti c activity (50645), gait training (47716), neuromuscu lar reeducatio n (47375), mechanical traction (56969) [id number] Kathy May MD , [facility], [address] [place] [address] 03/10/2025 15:50:02 03/10/2025 17:32:54 Adult health examination 289223017 Z00.00 see Risk Assessment and Lifestyle Change Counseling section above Depression screening 171 341594 Z13.31 depression screening tool administer ed Screening for alcohol abuse 025013196 Z13.39 Alcohol use screening tool administer ed Atrial fibrillation 4943 6004 I48.91 on NOACnot sxstablera te controlhad holter and echoecho stableresu lts holter pending Benign pro static hyperplasia with outflow obstruction 530145780 N40.1 feels sx well managed at this time Degenerati on of lumbar intervertebral disc 94990679 M51.360 he is having very mild sxfeels positive to have had reparative surgeryno radicular sx Diabetes mellitus 519271 09 E11.9 A1C at goal < 8he is staying activeeati ng welltaking medication working w his neuropathy sx Diabetic p eripheral neuropathy 111826417 E11.40 chronicexc ellent foot caretakes balance precaution songoing work on this Essential hypertension 06388058 I10 goal < 130/80at goal here and homenot sxcan be higher at times at MD visitswill f/u six mo Hyperlipidemia [id number] E78.5 high dose statinannu al labsat goal Hypothyroidism [id number] E03.9 in rangestabl e 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 [id number] E11.3299 followed by ophtho up to date with eye careDM mgmt focusgood control Obstructiv e sleep apnea syndrome [id number] G47.33 dx and tx doing well managing CPAPsaw sleep med for check upwill continue current POC Rheumatoid arthritis [id number] Ayala, rheumconsi dering changing from Humira as no longer on free program and expensive, hasn't made change yetsx well managed Spinal melodie nosis in cervical region [id number] M48.02 had four discs replaced Augusthas some premanent loss strength in hands but fully functional no paincomple manny OT [id number] KATIUSKA MCCLELLAND NP Physical Therapy, [facility] [address] [place] [address] 03/30/2025 12:25:44 04/01/2025 09:49:30 Cervical spondylosis [id number] M47.812 Patient Goals:To be able to Push, pull, lift, reach and carry as well as grasp for ADLs and recreation Without limitation s due to upper extremity [id number] patient rates his grasp is approximat anna 60% of normal. He is now able to push, pull reach and carry without loss of balance for most activities To be able to walk community distances without loss of balance and to be able to climb stairs without the use of a rail.03/30 patient's gait and endurance is significan tly improved. He is able to climb stairs without the use of a rail for short distances. Clinical Goals:1. Demonstrat e symmetric pain free active, passive and resisted motions of the neck and upper extremitie s. -These goals have been met2. Demonstrat e sufficient muscular endurance to meet functional demands.Th alessandra goals have been met3. Demonstrat e symmetric pain-free active, passive and resisted motions of the lower extremity. These goals have been met4. Demonstrat e single leg balance of 10 seconds on each leg.This goal has not been met. Health Concerns Section Related Observation LastModified by Organization Detai ls LastModified Time None Recorded Concern Status LastModified by Organization Details LastModified Time None Recorded Advance Directives Directive Y: Payers Encounter Date Sequence Insurance Name Policy Number Policy Kulkarni Covered Member ID Kulkarni Member ID Guarantor Name 01/01/2025 2 [place]MEDICARE SUPPLE[id number] Maxim A Cristin [id number] Maxim A Cristin 01/01/2025 1 [place] [employer] Maxim A Cristin [id number] Maxim A Cristin 01/05/2025 2 [place]MED[id number] Maxim A Cristin [id number] Maxim A Cristin 01/05/2025 1 [place] Maxim A Cristin [id number] Maxim A Cristin 02/02/2025 2 [place]MED[id number] Maxim A Cristin [id number] Maxim A Cristin 02/02/2025 1 [place] [employer] Maxim Holcombe [id number] Maxim Bryan Cristin 03/10/2025 2 [place] [id number] Maxim Bryan Cristin [id number] Maxim A Cristin 03/10/2025 1 [place] Maxim A Cristin [id number] Maxim Bryan Cristin 03/30/2025 2 [place] [facility] (MEDICARE SUPPLEMENT) [id number] Maxim Bryan Cristin [id number] Maxim Bryan Cristin 03/30/2025 1 [place] [employer] Maxim Bryan Cristin [id number] Maxim Irvin Cristin Notes Date Note Type Note Provider Name [...] eval if developing these sx JANN Rothman, [place] - [facility] 01/01/2025 10:44:08 01/05/2025 text/html PT Initial Eval*Reported bypatient.History:Chief complaint: (Upper extremity weakness, lower extremity weakness [...] latex; no falls in the past year;recent hospitalization;current ly taking a blood thinner Prior Studies:none Prior Treatments:none Activities/Hobbies/Exer cise:He has begun to walk more about 3000 steps a day and uses his recumbent bike at home Associated Symptoms:weight loss (7 lbs)(Prior to surgery);numbness;tingl ing(All 4 extremities); no nausea; no vomiting; no [...] like to focus on. Patient Specific Functional Score:60 Percent limitation in Use of hands70 Percent limitation in Walking/balance Nagi Whitman, PT [address] [place], [address], [facility] 01/05/2025 12:12:35 02/02/2025 text/html PT Initial Eval*Reported bypatient.History:Chief complaint: (Upper extremity weakness, lower extremity weakness [...] latex; no falls in the past year;recent hospitalization;current ly taking a blood thinner Prior Studies:none Prior Treatments:none Activities/Hobbies/Exer cise:He has begun to walk more about 3000 steps a day and uses his recumbent bike at home Associated Symptoms:weight loss (7 lbs)(Prior to surgery);numbness;tingl ing(All 4 extremities); no nausea; no vomiting; no fever; no chills; no excessive fatigue; no confusion; no forgetfulness; no dizziness; no lightheadedness; no changes in urinary habits; no changes in bowel habits; no loss of pleasure or interest in activities; no feeling down or depressedDaily progress note*Reported bypatient.How are you feeling?improving (Walking more); AM stiffness in back, gets better as I walk more. As I walk more the right side gets a little more sore but does not get worse. Home program:Performing regularly; 6 miles on the recumbent bike and all the other exercises. Stadium steps still awkward but getting better. I would like to work on balance and flexibility for my golf swing. Patient Specific Functional Score:60 Percent limitation in Use of hands70 Percent limitation in Walking/balance Nagi Whitman, PT [address] [facility], [place], [phone], [facility] 02/02/2025 15:07:24 03/10/2025 text/html Risk Assessment and Lifestyle Change Counseling (Medicare)Reported bypatient.Coronary Artery Disease Risk Assessment:Family History of Coronary Artery Disease; No personal history of diabetes; No history of peripheral vascular disease, AAA, or carotid disease; No personal history of coronary artery disease; [place] 10 year risk Breast Cancer Risk Assessment:No family history of breast cancer; No history of breast cancer or dcis Colon Cancer Risk Assessment:No family history of pre cancerous colon polyps or cancer Lung Cancer Risk Assessment:Former smoker - Quit Year:; No asbestos exposure Fracture Risk Assessment:No unexplained fracture; No use of corticosteroids; No anti-seizure medication; Normal bone density; Has adequate calcium intake; Taking Vitamin D supplement; No chronic use of proton pump inhibitors Cognitive/Behavioral Risk Assessment:No personal history of mental illness; No family history of mental illness Safety Risk Assessment:Has grab bars in bathroom; Has rails on steps;History of falls 1-3 in past 12 months; No evidence of abuse/neglect; working w PT Functional Status:Patient does not have trouble hearing the television or radio when others do not.; Patient does not have to strain or struggle to hear/understand conversations; Patient does not need help with preparing meals, transportation, shopping, taking medicine, managing finances, or other activities of daily living.; Patient does not have visual loss that interferes with daily activities; Does not live alone; Patient was not unsteady and did not take longer than 30 seconds during the timed get up and go test. Diet:Counseled about appropriate portion size; Counseled about appropriate calcium intake and good dietary sources of calcium.; Counseled about the importance of maintaining a positive calcium balance and taking 1000 iu Vitamin D daily.; Counseled about decreasing carbohydrates; Discussed the value of a Mediterranean diet , and eating more fruits and vegetables Exercise counseling:Discussed the importance of daily physical activity; Discussed the importance of weight bearing exercise Safety:Counseled about protecting skin from the sun and lowering the risk of skin cancer; Counseled about avoiding excessive and unsafe alcohol intake; Counseled about use of helmets for high velocity activiities; Counseled about home safety including use of smoke detectors, CO detectors, keeping home water temperature less than 120; Counseled about use of seat belts; Counseled about fall risk from throw rugs and the need for hand rails on steps and in bath health goals:would like to not have a surgery this yearthinks this would be a good yearstill on goal to get his activity upmore consistentwants 6000 steps average daily, he is at about [id number] right nowhe feels balance piece from his surgery is still not great and this impairs mobility concerns:updates:-sleep medicine visit, doing great, on CPAP, well controlled-five years since he had cardiac testing so had repeat ECHO and holter; echo looked good and awaiting results holter but thinks fine-after neck surgery in June, did PT for his hands, they are at about 60% of strength and has plateaued so done with this, has some atrophy from the time he didn't have good innervation, he is fully functional-working w PT here on balance, he is able to walk much morehe does 6 miles a day on recumbant bikedoesn't get SOBbalance is attributed to the neuropathyprobably not going to get bettertrying to learn how to compensatedoes daily exercises and strength exercises 3 days a weekhas had a few falls in past year, no injurieshe feels he tends to fall wellhe usually falls when he stands and turns and feet get tangled and then slowly goes down-using psyllium for bowels which really helpedregular-sleep pattern changing a bit, when he gets up to urinate in the night, he is then awake earlier, goes to bed at 10 but getting up more 5:30 or 6 instead of 7:30 or 8has a whole bedtime routine -good sleep hygienenot napping dropped 5-6 pounds when he was sick this yearhasn't come back blood sugar control ozopW6C is a 7checks daily and usually from 85-110 fastingno sx lows back is okaylower back mild sorenessmuch better after surgeryno radicular sxwhen he walks after [phone] steps it gets betterneck is really goodno pain reallymild soreness in shoulders BP has been up and downwhen he checks it can be sikbyetn703/67 this morninglast week at doctor visit it was 150/80this tends to occurat home under control home is goodw Ellenrelationship is greatthey are cruising alonghad a financial check up and they are in great shapeenjoy kids and grandkids still in their own homewant to stay as long as they cancondoplan to hire help if neededtwo floors but main bedroom on first floorhave local family support sees rheumatologygoign to try another agent not humira. Kathy May MD [address] [place] [address], [phone], [facility] 03/10/2025 17:33:03 03/30/2025 text/html PT Initial Eval*Reported bypatient.History:Chief complaint: (Upper extremity weakness, lower extremity weakness [...] latex; no falls in the past year;recent hospitalization;current ly taking a blood thinner Prior Studies:none Prior Treatments:none Activities/Hobbies/Exer cise:He has begun to walk more about 3000 steps a day and uses his recumbent bike at home Associated Symptoms:weight loss (7 lbs)(Prior to surgery);numbness;tingl ing(All 4 extremities); no nausea; no vomiting; no fever; no chills; no excessive fatigue; no confusion; no forgetfulness; no dizziness; no lightheadedness; no changes in urinary habits; no changes in bowel habits; no loss of pleasure or interest in activities; no feeling down or depressedDaily progress note*Reported bypatient.How are you feeling?improving (Very slowly now. My balance is better And I am more active. Still some concern climbing stairs hands are about 60%. I am donne with occupational therapy.) Home program:Performing regularly; 6 miles on the recumbent bike and all the other exercises. Stadium steps still awkward. I have not gotten out to golf yet but that is planned for the next week. Pretty competent and I can do this Patient Specific Functional Score:60 Percent limitation in Use of hands30 Percent limitation in Walking/balance Nagi Whitman, PT [address] [place], [phone], [facility] 04/01/2025 09:27:27
[2025-04-29 08:20] LABS: MANUAL DIFF FLAG NO
[2025-04-29 08:58] LABS: Basophils Absolute Auto 0.1 X10*3/uL (0.0-0.2); Eosinophils Absolute Auto 0.6 X10*3/uL (0.0-0.4); Eosinophils Percent Auto 13.8 % (0-4); Hematocrit 40.9 % (42.0-52.0); Hemoglobin 13.6 g/dl (14.0-18.0); Imm Gran Abs Auto 0.01 X10*3/uL (0.00-0.03); Imm Gran Pct Auto 0.2 % (0.0-0.4); Lymphocytes Absolute Auto 1.3 X10*3/uL (1.2-4.9); Lymphocytes Percent Auto 29.6 % (20-40); Mean Corpuscular HGB Conc 33.3 g/dl (31.0-36.0); Mean Corpuscular Hemoglobin 31.4 pg (27.0-33.0); Mean Corpuscular Volume 94.5 fL (80.0-98.0); Mean Platelet Volume 9.9 fL (9.4-12.4); Monocytes Absolute Auto 0.4 X10*3/uL (0.1-1.2); Monocytes Percent Auto 9.6 % (2-11); Neutrophils Percent Auto 44.8 % (45-73); Platelet Count 198 X10*3/uL (160-400); Red Blood Count 4.33 X10*6/uL (4.60-5.80); Red Cell Distribution Width 13.1 % (11.0-16.0); White Blood Count 4.5 X10*3/uL (4.8-10.8)
[2025-04-29 09:27] LABS: Erythrocyte Sedimentation Rate 5 MM/HR (0-15)
[2025-04-29 09:43] LABS: Alanine Aminotransferase 42 U/L (0-40); Albumin Level 4.1 g/dL (3.5-5.0); Alkaline Phosphatase 67 U/L (39-117); Anion Gap 11 (12-20); Aspartate Amino Transferase 40 U/L (5-37); Blood Urea Nitrogen 21 mg/dL (9-16); Calcium 9.8 mg/dL (8.4-10.2); Carbon Dioxide 30 mmol/L (22-29); Chloride 110 mmol/L (96-108); Estimated Glomerular Filt Rate > 60; Glucose Random 114 mg/dL (60-115); Potassium 4.5 mmol/L (3.3-5.1); Sodium 146 mmol/L (135-145); Total Protein 6.5 g/dL (6.5-8.0)
[2025-04-29 09:53] LABS: Alanine Aminotransferase 41 U/L (0-40); Albumin Level 4.1 g/dL (3.5-5.0); Alkaline Phosphatase 67 U/L (39-117); Anion Gap 9 (12-20); Aspartate Amino Transferase 35 U/L (5-37); Blood Urea Nitrogen 20 mg/dL (9-16); C Reactive Protein < 0.10 mg/dL (< or = 0.50); Calcium 9.7 mg/dL (8.4-10.2); Carbon Dioxide 30 mmol/L (22-29); Chloride 110 mmol/L (96-108); Estimated Glomerular Filt Rate > 60; Glucose Random 114 mg/dL (60-115); Iron 85 mcg/dL (45-160); Percent Iron Saturation 34 % (15-50); Potassium 4.4 mmol/L (3.3-5.1); Sodium 145 mmol/L (135-145); Total Iron Binding Capacity 249 mcg/dL (228-428); Total Protein 6.6 g/dL (6.5-8.0); Unsaturated Iron Binding 164 ug/dL
[2025-04-29 10:09] LABS: Ferritin 28 ng/mL (20-250)
[2025-04-29 10:22] LABS: Folate 15.7 ng/mL (> or = 4.0); Vitamin B12 871 pg/mL (200-900)
[2025-04-30 17:03] LABS: Homocysteine 14.6 umol/L (< or = 15.2)
[2025-05-02 17:59] LABS: Methylmalonic Acid 322 nmol/L (69-390)
== END 2025-04-29 08:01 | disposition home or self-care (01) ==
LOC: HO.LAB 08:00
PROVIDERS: Student in an Organized Health Care Education/Training Program; Visit Provider Nurse Practitioner Family
DX: M06.00 Rheumatoid arthritis without rheumatoid factor, unspecified site (principal); Z79.620 Long term (current) use of immunosuppressive biologic; Z51.81 Encounter for therapeutic drug level monitoring; G62.9 Polyneuropathy, unspecified; E53.8 Deficiency of other specified B group vitamins; D64.9 Anemia, unspecified; Z13.6 Encounter for screening for cardiovascular disorders
CPT/HCPCS: 36415; 80053; 82607; 82728; 82746; 83090; 83540; 83921; 85025; 85652; 86140

== ENCOUNTER 2025-05-05 10:58 | Outpatient (AMB) | payer MEDICARE, BC, SELFPAY ==
--- NOTE | 2025-04-28 16:06 | MHC.OFFVIS ---
Intake Visit Reasons: Follow Up 6mo Allergies cats Allergy (Intermediate, Uncoded 04/21/24 12:23) Headache PFSH Medical History (Updated 01/12/25 @ 09:46 by Beatriz Ayala MD) Encounter for monitoring of adalimumab therapy PMR (polymyalgia rheumatica) Low back pain, unspecified Psoriasis Degeneration of intervertebral disc of lumbar region Osteoarthritis Atrial fibrillation Hyperlipidemia Essential hypertension Obstructive sleep apnea Diabetes Hypothyroidism Surgical History H/O cervical spine surgery (~06/2024) H/O knee surgery H/O heart surgery Hx of excision of lamina of lumbar vertebra for decompression of spinal cord Hx of hernia repair Family History Mother Coronary arteriosclerosis Myocardial infarction Father Alcoholism Diabetes Social History Household Members: Spouse Household Members Other:: Alcohol intake: current Alcohol intake frequency: holidays/special occasions only Patient Tobacco Use Status: Former Tobacco user Current occupational status: retired 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
--- NOTE | 2025-05-05 11:11 | A.OFFVIS_ITS ---
Vital Signs 05/05/25 11:13 Height 5 ft 11 in Weight 168 lb BMI 23.4 BP 144/80 H Blood Pressure Location Rt brachial Position Sitting Pulse 67 Pulse Source Pulse Oximeter Pulse Oximetry (%) 97 Oxygen Delivery Method Room Air Intake Visit Reasons: Follow Up 6mo Intake Note: 6 month follow up for neuropathy Information Technology Manager Required: No Accompanied by: Self / Same As Patient Allergies cats Allergy (Intermediate, Uncoded 05/05/25 11:13) Headache HPI Comments Details: Right-handed 78-yr-old male presents for f/u visit of hand weakness, tremor, gait disorder- s/p C3-7 ACDF by Michael 07/17/24, s/p left carpal tunnel release by Dr. Ceballos on 04/06/24. Patient reports that he is doing overall better since his last visit here, however he still has some residual hand weakness. He has completed his PT and OT, which he found to be helpful. He is still writing a recumbent bike x's 6 miles, walking up to 1811-3760 steps per day- tracks with a watch. He states his hand strength is better, more so in the right than the left, there is residual weakness. He continues to have arthrtic symptoms in both hands. Therapist gave him hand gloves which helps. Hand tremor is less. His neck is better- better ROM, no pain. Overall his shoulders feel better, he may have an occasional left shoulder discomfort. He is not noticing any hand numbness, tingling. He states his balance is better, but can have difficulties with balance more so when turning. He had a couple of falls a few months ago- both times when turning, one where his feet were also caught in his bed sheets. 04/29/2025, labs showed: Normal vitamin B12 871, normal folate 15.7, with normalized homocystine and methylmalonic acid levels. Also, mildly improved H&H, but slightly increased BUN, AST/ALT. Patient denies recent indications of dehydration. He is compliant with the vitamin B12 supplement. He has follow-up with Rheumatology next week- states they are considering trialing him on an alternate RA treatment to Humira. 01/08/25 01/26/25 04/29/25 08:11 08:46 08:18 WBC 3.6 L 7.9 4.5 L RBC 4.24 L 4.23 L 4.33 L Hgb 12.8 L 13.0 L 13.6 L Hct 40.0 L 39.7 L 40.9 L Plt Count 157 L Neut % (Auto) 35.4 L 34.1 L 44.8 L Lymph % (Auto) 26.2 18.3 L 29.6 Clark % (Auto) 15.2 H Eos % (Auto) 21.8 H 39.3 H 13.8 H Baso % (Auto) 1.1 1.5 2.0 Sodium 141 143 146 H Potassium 4.3 4.8 4.5 Chloride 108 112 H 110 H Carbon Dioxide 26 26 Anion Gap 11 L 10 L 11 L BUN 16 16 21 H Creatinine 1.00 0.85 Random Glucose 137 H 180 H 114 Calcium 9.8 Iron 85 TIBC 249 % Saturation 34 Unsat Iron Binding 164 Ferritin 28 Total Bilirubin 0.6 1.0 1.0 AST 39 H 32 40 H ALT 31 42 H Alkaline Phosphatase 69 75 67 C-Reactive Protein 3.61 H < 0.10 < 0.10 Total Protein 6.3 L 6.3 L 6.5 Albumin 3.5 3.7 4.1 Vitamin B12 871 Methylmalonic Acid 322 Folate 15.7 Homocysteine 14.6 Previous work-up: 02/27/24, BLE eMG/NCS: IMPRESSION: ?Abnormal study. 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 ?Findings are consistent with, but nonspecific for, diabetic polyneuropathy. * There is EMG evidence of subacute denervation affecting distal greater than proximal muscles in right greater than left lower extremities, consistent with the underlying polyneuropathy. ?However, because of the severity of the underlying polyneuropathy, superimposed right greater than left L5-S1 radiculopathies or lower lumbar/upper sacral plexopathies cannot be excluded on the basis of this study. ?Clinical correlation with lumbar imaging studies is advised. * No EMG evidence of myopathy affecting studied muscles in the lower extremities. , BUE EMG/NCS: IMPRESSION: ?Abnormal study. * ?There is EMG evidence of rwnnvftb-[id number]-pjshaw subacute denervation affecting right greater than left upper extremity muscles innervated by C5-C8 nerve roots, including cervical paraspinal muscles, consistent with polyradiculopathy. * There is nerve conduction study evidence of a moderate large-fiber length- dependent sensorimotor polyneuropathy affecting the upper extremities, including demyelination and axonal loss. ?Findings are consistent with, but nonspecific for, diabetic polyneuropathy. * Because of the underlying polyneuropathy, superimposed bilateral median mononeuropathies at the wrists (carpal tunnel syndromes), particularly on the right side, cannot be excluded. * No definite nerve conduction study evidence of bilateral ulnar neuropathies at the elbows (cubital tunnel syndromes). * No EMG evidence of myopathy affecting studied muscles in the upper extremities. * ?Upper motor neuron pathology, including myelopathy, is not evaluated by this study. ? 02/12/24, MR/MR head/brain and c-spine wo con IMPRESSION: Within the limitations of this study, -No acute intracranial abnormality. -Chronic microangiopathy. -Severe spinal canal stenosis at C3-C4 and C5-C6 with impingement of the cord. There is suggestion of abnormal cord signal at C5-C6, which may reflect compressive myelopathy. There is also moderate spinal canal stenoses at C4-C5 and C6-C7. -Severe bilateral neural foraminal narrowing spanning C3-C4 through C6-C7. 02/18/24, XR/XR cervical spine 4V IMPRESSION: Multilevel cervical spondylosis with advanced degenerative changes and loss of disc space height at C3-C4, C5-C6, and C6-C7. 01/22/24 01/22/24 08:00 08:20 WBC 4.5 L RBC 4.52 L Hgb 13.5 L Hct 42.0 MCV 92.9 MCH 29.9 Sodium 143 Potassium 3.9 Chloride 107 Carbon Dioxide 26 Anion Gap 14 BUN 18 H Creatinine 0.89 Hemoglobin A1c % 6.9 H Calcium 9.5 Iron 68 TIBC 275 % Saturation 25 Unsat Iron Binding 207 Total Bilirubin 0.9 AST 31 ALT 34 Alkaline Phosphatase 75 Vitamin B12 271 Methylmalonic Acid 1177 H Folate 15.8 Homocysteine 23.3 H TSH 0.80 Ur Creatinine 24 Hour 0.99 Ur Albumin 24 Hour 100 Ur Total Protein 24 Hr 166 H Protein/Creat Ratio 24h 167 H Ur Protein/Creat Ratio mg/mg 0.167 H U Pkxss-2-Bbbvpnyf 0 U Srfix-6-Ugzsinzf 0 U Beta Globulin 0 U Gamma Globulin 0 PFSH Medical History (Updated 01/12/25 @ 09:46 by Beatriz Ayala MD) Encounter for monitoring of adalimumab therapy PMR (polymyalgia rheumatica) Low back pain, unspecified Psoriasis Degeneration of intervertebral disc of lumbar region Osteoarthritis Atrial fibrillation Hyperlipidemia Essential hypertension Obstructive sleep apnea Diabetes Hypothyroidism Surgical History H/O cervical spine surgery (~06/2024) H/O knee surgery H/O heart surgery Hx of excision of lamina of lumbar vertebra for decompression of spinal cord Hx of hernia repair Family History Mother Coronary arteriosclerosis Myocardial infarction Father Alcoholism Diabetes Social History Household Members: Spouse Household Members Other:: Alcohol intake: current Alcohol intake frequency: holidays/special occasions only Patient Tobacco Use Status: Former Tobacco user Current occupational status: retired 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 Mild BUE palpable tremor Tone: Mild LUE tone Hand- Bilateral Intrinsic hand muscle wasting- though improve bilaterally, more so on right. Mild left hand medical research associate weakness. Improved bilateral pinch grasp- right pinched grafts test intact, mild weakness persists on left. Dyskinesia: None FFM: Very mild decrease in LUE Foot taps: Decreased on left Gait: Let arm droop, decreased left arm swing, shorter steps, less noticeable right high step, steady or during turns today, steady with walking stick Psych: Pleasant affect Assessment & Plan Assessment & Plan (1) Left hand weakness: Code(s): R29.898 - Other symptoms and signs involving the musculoskeletal system Category: Medical (2) Altered gait: Code(s): R26.9 - Unspecified abnormalities of gait and mobility Category: Medical (3) Sensory motor neuropathy: Comment: BUE moderately severe diffuse sensorimotor peripheral neuropathy. Code(s): G62.9 - Polyneuropathy, unspecified Category: Medical (4) Neuroforaminal stenosis of cervical spine: Code(s): M48.02 - Spinal stenosis, cervical region Category: Medical Plan Pt has had improved BUE medical research associate and pinch strength, though still has mild residual decreased left hand grasp and pinch strength. Encouraged patient to continue hand OT and PT exercises, as well as his home exercise regimen. Suggested adding a few bilateral hand and wrist strengthening exercises- inf ormation shared on simple hand strengthening equipment. Continue to use walking stick. Advised to turn slowly, and try to keep upper and lower body in alignment during turns to minimize postural instability during turns. Reviewed labs- improved vitamin B12 level with normalized homocystine/methylmalonic acid level. He continues to have pancytopenia, slightly improved- however CMP shows elevated BUN, elevated AST/ALT, serum sodium. Patient denies any recent indications of dehydration. Encouraged patient to ensure he is taking at least 64 to 70 oz of fluid per day. Continue vitamin B12 500 mcg daily. F/u w/ rheumatology as scheduled. Monitor gait, tremor, stiffness- if worsens consider DaTscan. Coding Level of Care Code Est Pt Level 4 (19597) Diagnoses Left hand weakness R29.898 Altered gait R26.9 Sensory motor neuropathy G62.9 Neuroforaminal stenosis of cervical spine M48.02 Comment Total of 35 minutes spent with patient, review of chart, labs, specialty notes.
[2025-05-05 11:13] VITALS: BP 144/80; PULSE 67; O2SAT 97; BMI 23.4
--- OUTSIDE RECORDS SUMMARY | 2025-05-05 12:34 | XMS_ITS | Data Portability ---
Author Organization [facility], FORMERLY [facility] Address [address] [place] [address] Care Team Providers Care Debubblizer Name Role Phone KATHY MAY Primary Care Provider DAVID BOYD Sports Medicine NAGI WHITMAN Physical Therapist VY SEGURA American Indian Policy Specialist [phone] JOHNNA HESS Lead Solutions Architect GUSTAVO ZIMMER Mgmt Specialist BETH JULIAN Neurologist Assessment Encounter Date [...] meeting your goals. Please visit our website [employer] for more patient resources. As part of [...] Details Appointments LAB Follow-Up 2024 09:00A [facility] Lab Not available Not available Not available Follow Up, 2024 11:00A M Kathy May MD Not available Not available Not available LAB Follow-Up 2025 09:00A [facility] Lab Not available Not available Not available Wellness Visit 2025 11:15A M Kathy May MD Not available Not available Not available Lab None recorded. Referral None recorded. Procedures None recorded. Surgeries None recorded. Imaging None recorded. Medication Orders None recorded. Patient TargetsNo targets recorded. Patient Instructions Encounter Date Encounter Id Patient Instructions Last Modified By Organization Details Last Modified Time 03/10/2025 [id number] please bring us a copy of your [...] furth er confi rmati on Not Available [address], [address], 03/04/2025 11:04:52 03/04/20 25 03/04/2025 HGB A1C estimated average glucose 154.2 mg/dL Not Available [address], [address], 03/04/2025 11:04:52 03/04/20 25 03/04/2025 MICRO ALBUM IN/CR EATIN INE RATIO PANEL , URINE microalbumin 39.3 mg/L 1.3-20 .0 high Not Available [address], [address], 03/04/2025 13:36:54 03/04/20 25 03/04/2025 MICRO ALBUM IN/CR EATIN INE RATIO PANEL , URINE creatinine urine 96.6 mg/dL 30.0-1 25.0 Not Available [address], [address], 03/04/2025 13:36:54 03/04/20 25 03/04/2025 MICRO ALBUM IN/CR EATIN INE RATIO PANEL , URINE microalb/cre at ratio 40.7 mg/g_ creat 0.0-29 .0 high Not Available [address], [address], 03/04/2025 13:36:54 03/04/20 25 03/04/2025 TSH TSH 1.57 uIU/m L 0.50-6 .00 The Ameri can [employer] ge of Endoc rinol ogy and Ameri can Thyro id Assoc iatio n recom mend goal TSH value s betwe en 0.4-4 .0 mIU/m L. Not Available [address], [address], 03/04/2025 14:05:39 03/04/20 25 03/04/2025 BASIC METAB OLIC PANEL glucose 188 mg/dL 70-100 high Not Available [address], [address], 03/04/2025 15:49:00 03/04/20 25 03/04/2025 BASIC METAB OLIC PANEL BUN 17 mg/dL 7-18 Not Available [address], [address], 03/04/2025 15:49:00 03/04/20 25 03/04/2025 BASIC METAB OLIC PANEL creatinine 1.0 mg/dL 0.8-1. 3 Not Available [address], [address], 03/04/2025 15:49:00 03/04/20 25 03/04/2025 BASIC METAB OLIC PANEL B/C 17.0 ratio Not Available [address], [address], 03/04/2025 15:49:00 03/04/20 25 03/04/2025 BASIC METAB [...] shoul d not be used in pregn falvio. Not Available [address], [address], 03/04/2025 15:49:00 03/04/20 25 03/04/2025 BASIC METAB OLIC PANEL sodium 142 mmol/ L 136-14 5 Not Available [address], [address], 03/04/2025 15:49:00 03/04/20 25 03/04/2025 BASIC METAB OLIC PANEL potassium 4.8 mmol/ L 3.5-5. 1 Not Available [address], [address], 03/04/2025 15:49:00 03/04/20 25 03/04/2025 BASIC METAB OLIC PANEL chloride 106 mmol/ L 96-107 Not Available [address], [address], 03/04/2025 15:49:00 03/04/20 25 03/04/2025 BASIC METAB OLIC PANEL anion gap 8.0 5.0-15 .0 Not Available [address], [address], 03/04/2025 15:49:00 03/04/2003/04/2025 BASIC METAB OLIC PANEL CO2 28 mmol/ L 21-32 Not Available [address], [address], 03/04/2025 15:49:00 03/04/20 25 03/04/2025 BASIC METAB OLIC PANEL calcium 9.1 mg/dL 8.5-10 .3 Not Available [address], [address], 03/04/2025 15:49:00 03/04/20 25 03/04/2025 LIPID PANEL cholesterol 101 mg/dL <200 mg/dl Iam able 200-2 39 mg/dl Borde rline High >240 mg/dl High Not Available [address], [address], 03/04/2025 15:49:01 03/04/20 25 03/04/2025 LIPID PANEL triglyceride s 55 mg/dL <150 mg/dL Vanita l 150-1 99 mg/dL Borde rline High 200-4 99 mg/dL High >500 mg/dL Very High Not Available [address], [address], 03/04/2025 15:49:01 03/04/20 25 03/04/2025 LIPID PANEL direct HDL 41 mg/dL <40 mg/dl - Major Risk for CHD >60 mg/dl - Negat brandon Risk for CHD Not Available [address], [address], 03/04/2025 15:49:01 03/04/20 25 03/04/2025 DIREC T [...] r is not melonie shayla. Not Available [address], [address], 03/04/2025 15:49:02 03/10/20 , echoc ardio gram, trans thora cic, compl ete No observ ation record ed. raul Not Available 2024 12:56:59 03/11/2003/01/2025 talat r monit or No observ ation record ed. raul [facility] [address], [place], [address], 03/11/2025 16:22:29 Result Notes None recorded. Problems Name Problem SNOMED Code Status Onset Date Resolution Date Notes Provider Name and Address Organization Details Recorded Time Atrial fibrillat ion 53050286 Active 2014 Not Available [facility] 4 01:33:21 Diabetes mellitus 66966690 Active 2015 Not Available [facility] 4 01:33:22 Essential hypertens ion 96661216 Active 2015 Not Available [facility] 4 01:33:21 Hyperlipi demia 36566433 Active 2015 Not Available [facility] 4 01:33:21 Osteoarth ritis 471613999 Active 2015 neck, knee, hands Not Available [facility] 4 01:33:21 Hypothyro idism 81881568 Active 2015 Not Available [facility] 4 01:33:21 Seasonal allergy 111355468 Active 2016 Not Available [facility] 4 01:33:21 Pain of joint of elbow 643664966 Completed 201610/01/2019 Kathy May MD [address] [place] [address], [address] , [facility] 9 14:21:17 Benign prostatic hyperplas ia with outflow obstructi on 128257482 Active 2017 Not Available [facility] 4 01:33:21 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 799333249 Active 2018 Not Available [facility] 4 01:33:21 Degenerat ion of lumbar intervert ebral disc 64480354 Active 2019 Not Available [facility] 4 01:33:21 Obstructi ve sleep apnea syndrome 90465824 Active 2020 Not Available [facility] 4 01:33:22 Polymyalg ia rheumatic a 91966240 Completed 202211/14/2023 Kathy May MD [address] [place] [address], [address] , [facility] 3 10:50:43 Rheumatoi d arthritis 57143517 Active 2022 Not Available [facility] 4 01:33:21 Spinal stenosis in cervical region 83500625 Active 2023 Kathy May MD [address] [place] [address], [address] , [facility] 5 11:06:55 Diabetic periphera l neuropath y 993330184 Active 2024 Kathy May MD [address] [place] [address], [address] , [facility] 5 11:04:54 Benign essential hypertens ion 0201383 Active 2017 [facility] 5 16:11:36 Mixed hyperlipi demia 563030869 Active 2017 [facility] 5 16:11:36 Paroxysma l atrial fibrillat ion 726213547 Active 2017 [facility] 5 16:11:36 Drug therapy finding 857008096 Active 2017 [facility] 5 16:11:36 Osteoarth ritis of right knee joint 33270937448 9100 Active 2017 [facility] 5 16:11:36 Type 2 diabetes mellitus 29276190 Active 2017 [facility] 5 16:11:36 Chronic systolic heart failure 260224205 Active 2017 [facility] 5 16:11:36 Notes:Some problems listed i n Documents: #[id number], #[id number], #[id number], #[id number], #[id number] could not be added to this patient's chart. Please review these documents and add these problems to the patient's chart manually as needed. Problem Notes None recorded. Procedures Surgical History Date Name Laterality Status Provider Name and Address Organization Details Recorded Time 03/30/20 00056: Neuromuscular Re-Education completed Nagi Whitman, PT [address] [place], [address], [facility] 04/01/2025 09:23:38 03/30/20 Treatment and Advice completed Nagi Whitman, PT [address] [place], [address], [facility] 03/30/2025 12:50:56 03/10/20 Medicare Wellness Visit completed Kathy Tinajero MA [facility] 03/08/2025 11:50:25 02/03/20 41248: Neuromuscular Re-Education completed Nagi Whitman, PT [address] [place], [address], [facility] 02/02/2025 15:07:00 02/03/20 Treatment and Advice completed Nagi Whitman, PT [address] [place], [address], [facility] 02/02/2025 14:34:48 01/05/20 34695: Neuromuscular Re-Education completed Nagi Whitman, PT [address] [place], [address], [facility] 01/05/2025 12:12:05 01/05/20 Treatment and Advice completed Nagi Whitman, PT [address] [place], [address], [facility] 01/05/2025 12:06:35 12/22/19 66297: Neuromuscular Re-Education completed Nagi Whitman, PT [address] [place], [address], [facility] 12/22/2024 13:34:51 12/22/19 Treatment and Advice completed Nagi Whitman, PT [address] [place], [address], [facility] 12/22/2024 13:18:54 12/08/19 52295: Therapeutic Exercise completed Nagi Whitman, PT [address] [place], [address], [facility] 12/08/2024 10:31:52 12/08/19 Treatment and Advice completed Nagi Whitman, PT [address] [place], [address], [facility] 12/08/2024 10:28:48 11/05/20 20813: Therapeutic Exercise completed Nagi Whitman, PT [address] [place], [address], [facility] 11/05/2024 14:35:21 11/05/20 Treatment and Advice completed Nagi Whitman, PT [address] [place], [address], [facility] 11/05/2024 14:34:16 10/15/20 29936: Therapeutic Exercise completed Nagi Whitman, PT [address] [place], [address], [facility] 10/15/2024 18:20:55 10/15/20 Treatment and Advice completed Nagi Whitman, PT [address] [place], [address], [facility] 10/15/2024 15:04:06 09/29/20 67672: Therapeutic Exercise completed Nagi Whitman, PT [address] [place], [address], [facility] 09/29/2024 10:37:55 09/29/20 Treatment and Advice completed Nagi Whitman, PT [address] [place], [address], [facility] 09/29/2024 10:02:22 09/15/20 36417: Therapeutic Exercise completed Nagi Whitman, PT [address] [place], [address], [facility] 09/15/2024 10:35:38 09/15/20 24 Treatment and Advice completed Nagi Whitman, PT [address] [place], [address], [facility] 09/15/2024 10:29:49 09/08/20 32298: Therapeutic Exercise completed Nagi Whitman, PT [address] [place], [address], [facility] 09/08/2024 11:02:59 09/08/20 Treatment and Advice completed aNgi Whitman, PT [address] [place], [address], [facility] 09/08/2024 10:57:27 09/03/20 99408: Therapeutic Exercise completed Nagi Whitman, PT [address] [place], [address], [facility] 09/03/2024 14:23:47 09/03/20 Treatment and Advice completed Nagi Whitman, PT [address] [place], [address], [facility] 09/03/2024 12:12:37 09/01/20 64889: Therapeutic Exercise completed Nagi Whitman, PT [address] [place], [address], [facility] 09/01/2024 10:29:53 09/01/20 Treatment and Advice completed Nagi Whitman, PT [address] [place], [address], [facility] 09/01/2024 10:00:08 08/27/20 95741: Therapeutic Exercise completed Nagi Whitman, PT [address] [place], [address], [facility] 08/27/2024 12:04:26 08/27/20 Treatment and Advice completed Nagi Whitman, PT [address] [place], [address], [facility] 08/27/2024 12:00:40 08/25/20 37185: Therapeutic Exercise completed Nagi Whitman, PT [address] [place], [address], [facility] 08/27/2024 10:53:41 08/25/20 Treatment and Advice completed Nagi Whitman, PT [address] [place], [address], [facility] 08/25/2024 11:11:05 08/18/20 Physical Activity Counselling completed Nagi Whitman, PT [address] [place], [address], [facility] 08/18/2024 10:10:16 08/18/20 49629: PT Eval Low Complexity completed Nagi Whitman, PT [address] [place], [address], [facility] 08/18/2024 10:10:16 08/18/20 Treatment and Advice completed Nagi Whitman, PT [address] [place], [address], [facility] 08/18/2024 10:42:21 10/11/20 16 43227: Therapeutic Exercise completed uMrali Smith, PT, DPT, [address], [address], [facility] 10/11/2016 09:31:04 10/11/20 16 35279: Manual Therapy completed Murali Smith, PT, DPT, [address], [address], [facility] 10/11/2016 09:31:09 10/01/20 16 69822: PT Evaluation completed Murali Smith PT, DPT, [address], [address], [facility] 10/01/2016 13:41:44 09/25/20 Medicare Wellness Visit completed Kathy May MD [address] [place] [address], [address], [facility] 09/25/2016 13:54:23 Imaging Results None recorded. Procedure [...] 1 CAPSULE BY MOUTH DAILY AT BEDTIME 2024 active Not Available Not Available Not Avai lable atorvasta tin 40 mg tablet TAKE 1 [...] e 137 mcg (0.1 %) nasal spray [place] 2 sprays twice a day by intranas [...] Not Available Not Avai lable Fluzone High-Dose [id number] (PF) 180 mcg/0.5 mL intramusc ular syringe TO BE ADMINIST ERED BY NO MARTEL FOR IMMUNIZA TION 04/02 completed Not Available Not Available Not Available Vitals Date Recorded Body height Heart rate Systolic blood pressure Diastolic blood pressure Provider Name and Address Organization Details Last Updated DateTime 01/01/2025 180.85 cm 58 /min 142 mm[Hg] 74 mm[Hg] Wilma Darby LPN [facility] 01/01/2025 10:43:24 Date Recorded Body height Body mass index (BMI) Body weight Body temperature Heart rate Oxygen saturation Oxygen saturation in Arterial blood by Pulse oximetry Systolic blood pressure Diastolic blood pressure Provider Name and Address Organization Details Last Updated DateTime 180.85 cm 23.6 kg/m2 37943.5 g 96 [degF] 66 /min 98 % 98 % 128 mm[Hg] 62 mm[Hg] Kathy Tinajero [facility] 16:10:07 Social History Question Answer Notes LastModified by Organization Details LastModified Time Tobacco Smoking Status Former Smoker in 20's only [facility]/28[facility]2016 09:34:03 Do You Have An [...] Or The Highest Degree You Have Received? PD19443-2 Information not available 11/13/2022 Have There Been [...] anxious, or unable to sleep at night)? [id number] Information not available 11/13/2022 Family History Relationship [...] e and Address Organization Details Recorded Time SARS-COV-2 (COVID-19) vaccine, UNSPECIFIED 5 completed [facility]AX [facility] 05/03/2025 11:07:37 Tdap 5 completed [facility] 05/03/2025 11:07:48 Influenza, high-dose, trivalent, PF 7 completed Not Available [facility] 12/12/2019 02:21:40 Tdap 5 completed Not Available [facility] 12/06/2023 01:33:22 zoster live 4 completed Not Available [facility] 12/06/2023 01:33:22 pneumococcal, unspecified formulation 4 completed Not Available [facility] 12/06/2023 01:33:22 Pneumococcal conjugate PCV 13 5 completed Not Available [facility] 12/06/2023 01:33:22 influenza, unspecified formulation 4 completed Not Available [facility] 12/06/2023 01:33:22 Influenza, high-dose, trivalent, PF 6 completed Not Available [facility] 12/06/2023 01:33:22 pneumococcal polysaccharide PPV23 4 completed Not Available [facility] 12/06/2023 01:33:22 Influenza, split virus, quadrivalent, preservative 8 completed [facility], [facility] 03/10/2025 16:18:16 Pneumococcal conjugate PCV 13 8 completed Not Available [facility] 12/06/2023 01:33:22 Influenza, high-dose, quadrivalent, PF 0 completed Wilma Darby LPN [facility] 09/08/2020 14:04:25 Influenza, split virus, quadrivalent, preservative 9 completed Not Available [facility] 12/06/2023 01:33:22 Influenza, split virus, quadrivalent, preservative 9 completed Not Available [facility] 12/06/2023 01:33:22 Influenza, high-dose, quadrivalent, PF 1 completed Melissa Carney TELEHEALTH DIRECTOR null, [facility] 09/06/2021 14:03:17 COVID-19, mRNA, LNP-S, PF, 30 mcg/0.3 mL dose 1 completed Not Available [facility] 12/06/2023 01:33:22 COVID-19, mRNA, LNP-S, PF, 30 mcg/0.3 mL dose 1 completed Not Available [facility] 12/06/2023 01:33:22 COVID-19, mRNA, LNP-S, PF, 30 mcg/0.3 mL dose 1 completed Not Available [facility] 12/06/2023 01:33:22 COVID-19, mRNA, LNP-S, PF, 30 mcg/0.3 mL dose 2 completed Not Available [facility] 12/06/2023 01:33:22 COVID-19, mRNA, LNP-S, PF, 30 mcg/0.3 mL dose 2 completed Not Available [facility] 12/06/2023 01:33:22 Influenza, split virus, quadrivalent, preservative 2 completed Not Available [facility] 12/06/2023 01:33:22 SARS-COV-2 (COVID-19) vaccine, UNSPECIFIED 3 completed Not Available [facility] 12/06/2023 01:33:22 influenza, unspecified formulation 3 completed Not Available [facility] 12/06/2023 01:33:22 zoster, unspecified formulation 3 completed Not Available [facility] 12/06/2023 01:33:22 zoster, unspecified formulation 4 completed Kathy May MD [address] [place] [address], [address], [facility] 03/10/2025 17:27:21 Past Encounters Encounter ID Performer Location Encounter Start Date Encounter Closed Date Diagnosis/Indication Diagnosis SNOMED-CT Code Diagnosis ICD10 Code Diagnosis Note [id number] Kathy May MD , [facility], [address] [place] [address] 04/28/2016 09:19:26 04/28/2016 10:25:43 Cough 41809988 R05 pt presents with URI sx and now ongoing cough and PND lungs sounds ronchorous and diminished but improved after updraft with duoneb no evidence of bacterial infection, sinus/ear/ pna tx below has apt in two weeks sooner f/u if not improving instr to avoid constipati on with use of codiene [id number] Kathy May MD , [facility], [address] [place] [address] 05/09/2016 14:40:00 05/09/2016 16:16:30 Screening for malignant neoplasm of colon 030348527 Z12.11 Hyperlipidemia 46199720 E78.5 pt reports good conrol, on statin, will get lipid panel Essential hypertension 40142271 I10 good control; labs orderedinc reasing metoprolol for tachycardi a Diabetes mellitus 879453 09 E11.9 reprots good controldie t/meds/exe rciselabs [...] 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 89317317 D53.1 pt takes B12, by hx was deficient/ anemicwill screen and f/u needs for ongoing supplement ation Hypothyroidism 76573701 E03.9 pt reports that often gets off kilter and needs dose adjustment [id number] Kathy May MD , [facility], [address] [place] [address] 05/15/2016 15:28:45 05/15/2016 16:52:11 Atrial flutter 5299092 I48.92 pt with more bouts of atrial [...] with ptkeep Dr Bravo apt next week [id number] Kathy May MD , [facility], [address] [place] [address] 06/12/2016 10:43:50 06/12/2016 11:20:05 Hypothyroidism 18831729 E03.9 refill meds, stableTSH 3.66 Hyperlipidemia 96844988 E78.5 stableLDL 97, HDL 41 Essential hypertension 60173776 I10 at goalnormal renal function Atrial fibrillation 4943 6004 I48.91 Lawrence this afternoonE F 35% recent imagingnor mal holter other than afib/flutt ersx with fatigue and edemawill f/u Lawrence's notes and planpt aware Diabetes mellitus 111814 09 E11.9 A1C was highpt has been focussed on heartplan to get back to checking sugars at homewatche s diet, takes medswillin g to meet with diabetes ed in future Screening for malignant neoplasm of colon 513517274 Z12.11 will consider colonoscop y after a fib tx resolved Allergic rhinitis 506895 04 J30.9 discussed neti potdust mite ppxthen consider OTC flonase [id number] Kathy May MD , [facility], [address] [place] [address] 09/25/2016 13:26:11 09/25/2016 14:20:20 Screening for disorder 314481780 Z11.59 Adult heal th examination 459483446 Z00.00 see Risk Assessment and Lifestyle Change Counseling section above Counseling 790615329 Z71 .9 Hypothyroidism 55795036 E03.9 stableannu al TSH Hyperlipidemia 30640681 E78.5 stablecont inue statin Essential hypertension 73814173 I10 not at goal here or hometc with Dr Lane ed add amlodipine 2.5 mg daily Atrial fibrillation [address] Linn moreno on decreasing amiodarone advised ongoing ETOH less than one a dayf/u Lawrence in October, echo Diabetes mellitus 485475 09 E11.9 at goalhas made improvemen ts with diet, metformin, exerciseco ntinue A1C biannualha d eye exam December but need local ophthorefe rral madesome evidence neuropathy on examstable renal function Osteoarthritis 722123774 M19.90 neck, hands, armshas had relief with PT for neck painwould like referral [id number] Murali Smith, PT, DPT, [facility], [facility] [address] [place] [address] 10/01/2016 12:53:39 10/01/2016 13:52:46 Neck pain 73337919 M54.2 Pt is a 71# y.o. male [...] with no more than 4/10 c/o pain joint terminal attack controller goals: Pain: Decrease to 2/10 Strength: Strong DNF contractio n with functional activities ROM: Maintain full cervical AROM Joint Mobility: Increase upper cervical downglidin g on the L to be equal bilaterall y Other: Pt will be able to complete all ADLs/IADLs and recreation al activities with no more than 2/10 c/o pain [id number] Murali Smith, PT, DPT, [facility], [address] [address] 10/11/2016 09:23:33 10/11/2016 13:00:06 Neck pain 29863742 M54.2 Pt still with moderate stiffness/ hypomobili ty of L sided cervical segments in downglidin g, improved with manual techniques . At end of treatment pt noted feeling better. [id number] Murali Smith PT, DPT, [facility] Physical Therapy, [address] [address] 10/22/2016 09:29:35 10/22/2016 12:43:22 Neck pain 10555441 M54.2 Pt with improving joint mobility on the L however still considerab le difference between R segments. [id number] Murali Smith, PT, DPT, [facility], [facility] [address] [place] [address] 11/05/2016 09:29:49 11/05/2016 11:00:28 Neck pain 40214655 M54.2 Pt no longer with soft tissue nor joint restrictio ns. Pt demonstrat es HEP correctly and pain-free. Pt understood concepts of safety in a way to manage and potential future pain. Pt is aware of how to contact PT again if needed. [id number] Kathy May MD , [facility], [address] [place] [address] 04/02/2017 10:39:25 04/02/2017 11:16:48 Hypothyroidism 18798672 E03.9 stableannu al TSH Seasonal allergy 9974097 04 J30.2 has had intermitte nt sxusing fluticason eavoids other meds given cardiac issues previously hasn't needed proair Hyperlipidemia 56219519 E78.5 stablecont inue statin Essential hypertension 37017466 I10 not at goalgenera lly has higher levelsstat es Lawrence cards was okay with thisno med changes todaywill call Dr Bravo and reviewlibertha ly also recommend daily ASA Diabetes mellitus 343932 09 E11.9 stop pioglitazo neat goalhome checks lower rangef/u PSA this Atrial fibrillation 4943 6004 I48.91 has been stable, no sxmeds reduced with cardiology Prostate s pecific antigen above reference range 267040188 R97.20 up from 2.97 in 2015no new sxpt prefers monitoring now will repeat 6 monthsagre e urology referral if persistant [id number] Kathy May MD , [facility], [address] [place] [address] 05/02/2017 16:40:21 05/02/2017 17:34:57 Pain of joint of elbow 208538444 M25.529 enc to try exercises givenenc to try alternate computer station and/or use gel pad for armcould do PTf/u if sx worseningr est and ice PRN Osteoarthritis 813672296 M19.90 neck, hands, armsschedu le for right knee cortisone injection, had one over a year ago with relief, hopes to buy some more time with another injectioni nstr to do PT exercises daily?if could be developing a psoriatic component to arthritis though generally consistent pattern with use and age Essential hypertension 24905859 I10 not at goal but lower on recheckpt follows with Dr Bravo; spoke with him this weekDr Lawrence's goals for patient to stay in 140-150 systolic okaypressu res at [facility] office have been betterhas f/u Dr Bravo in falltaking meds, no SE no changes in POC today taught 4-7-8 breathing today [id number] ALVINA Arambula , [facility], [address] [place] [address] 05/08/2017 09:38:25 05/08/2017 10:32:43 Screening for malignant neoplasm of colon 315743833 Z12.11 Referral for a DIRECT booked colonoscop y. This patient is a healthy ASA Class 1 or 2 patient (only mild systemic disease), or a STABLE, well controlled insulin dependent diabetic. They do not have serious cardiac disease ie IN/angiopl asty within 1 year, symptomati c CHF; renal failure with CKD 4 or 5; take Coumadin, Plavix, Aggrenox, etc. Osteoarthr itis of knee 875050861 M17.9 Right, Cortisone injection given into R knee, tolerated procedure well, post injection instructio ns given. F/U PRN [id number] Kathy May MD , [facility], [address] [place] [address] 07/23/2017 15:35:27 07/23/2017 16:18:48 Active or passive immunization 114350320 Z23 Pain of jocelyn int of elbow 475917332 M25.529 ongoing issue forearm and elbowsome associatio n with golfsome on leftnow willing to start PTprefers E'ton Essential hypertension 64609082 I10 at goalno changes today Diabetes mellitus 947188 09 E11.9 as he is having se with metformin we will redcue and change to long actingone sx low overall great controlclo se f/u at [facility] Atrial fibrillation 4943 6004 I48.91 has been stable, no sx Thoracic back pain 52583 8004 M54.6 new BL back paintight on examlimite d forward flexionadv ised stretching , back hygienef/u at [facility] [id number] Johnna Fuentes MD [facility], [facility] [place] [address] [place] [address] 07/25/2017 08:15:48 07/25/2017 11:46:57 [id number] Minda Pendleton Ms, PT Physical Therapy, [facility] [address] [facility] [place] [address] 08/08/2017 10:25:05 08/08/2017 13:19:32 Pain of elbow region 98190533 M25.517 [id number] Minda Pendleton Ms, PT Physical Therapy, [address] [place] [address] 08/12/2017 09:01:44 08/12/2017 12:21:00 Pain of elbow region 21174314 M25.576 [id number] Minda Pendleton Ms, PT Physical Therapy, [address] [address] 08/19/2017 08:58:20 08/20/2017 07:19:13 Pain of elbow region 53047017 M25.238 [id number] Minda Pendleton Ms, PT Physical Therapy, [address] [address] 08/26/2017 09:24:52 08/26/2017 13:46:46 Pain of elbow region 78192628 M25.778 [id number] Minda Pendleton Ms, PT Physical Therapy, [address] [address] 09/03/2017 09:28:05 09/03/2017 11:12:39 Pain of elbow region 27455773 M25.920 [id number] Minda Pendleton Ms, PT Physical Therapy, [address] [address] 09/12/2017 11:01:37 09/12/2017 13:46:46 Pain of elbow region 66725033 M25.750 [id number] Minda Pendleton Ms, PT Physical Therapy, [address] [address] 09/20/2017 09:10:23 09/20/2017 11:46:22 Pain of elbow region 88634970 M25.985 [id number] Kathy May MD , [facility], [address] [place] [address] 09/26/2017 10:07:57 09/26/2017 10:46:45 Adult health examination 849732727 Z00.00 see Risk Assessment and Lifestyle Change Counseling section above Counseling 857937129 Z71 .9 Screening for disorder 464900060 Z11.59 Atrial fibrillation 4943 6004 I48.91 has been stable, no sxseeing Dr Bravo who is retiring, he will see another provider in that officerece nt visitno med changesref ill metoprolol Hypothyroidism 63158859 E03.9 stableannu al TSH Osteoarthritis 051028273 M19.90 would like repeat injection right kneeaware this is not an ongoing sustainabl e planhe will continue exercisesh as done PT will look into ortho options, synvysc in spring if needed Hyperlipidemia 92927238 E78.5 stablecont inue statin Diabetes mellitus 246394 09 E11.9 at goalwould like to be able to decrease ebesW1e 6.5tolerat ing current dosessome microalbun iuriasome peripheral loss sensation BL feet laterally onlychecki ng blood sugars most days in AMadvised to check other times of day, can create a schedule for himself as he likes routineno med changes todayf/u 6 mo Essential hypertension 59529220 I10 at goal on recheckrev iews with Dr Bravo cardiology as wellmeds stayed the same after last visitcheck s at home no changes today [id number] Minda Pendleton Ms, PT Physical Therapy, [address] [address] 09/30/2017 09:24:27 09/30/2017 10:30:38 Pain of elbow region 73469573 M25.167 [id number] Minda Pendleton Ms, PT Physical Therapy, [facility] [address] [place] [address] 10/01/2017 15:36:19 10/01/2017 15:36:34 [id number] ALVINA Arambula , [facility], [address] [place] [address] 10/08/2017 09:26:31 10/08/2017 10:13:03 Osteoarthritis of knee 421855365 M17.9 Right, Cortisone injection given into R knee, tolerated procedure well, post injection instructio ns given. F/U PRN [id number] Minda Alvareze Ms, PT Physical Therapy, [address] [address] 10/09/2017 11:43:01 10/09/2017 12:20:35 Pain of elbow region 89437883 M25.174 [id number] Kathy May MD FP, [facility], [address] [place] [address] 04/02/2018 13:59:10 04/02/2018 14:40:40 Osteoarthritis 378710634 M19.90 pt has worse sx this yeartrigge red with golfgoing to see GB for cortisone injectionw ants to discuss other correction tx options with orthorefer ral madeokay to iceokay periodic naproxen, not daily(pt doesn't like to take and tries to limit) Atrial fibrillation [address] Vázquez rhad ablation and continues to have intermitte nt sxhe has f/u with him in a few weeks Hyperlipidemia 57855665 E78.5 not on therapeuti c dosing of statinagre eable to increasef/ u labs in the fall Essential hypertension 29717723 I10 at goal on recheckrev iews with Dr Gurpreet charlton cardiology as welllisino pril dose reviewed at 20 mg Diabetes mellitus 992141 09 E11.9 at goal A1C 7meds are decreased and he feel much better with less GI SEhad eye examblood sugars at home goodDC pioglitazo ne as he is not taking and control is goodroutin e f/u at [facility] [id number] ALVINA Arambula FP, [facility], [address] [place] [address] 04/09/2018 07:26:36 04/09/2018 07:55:44 Osteoarthritis 597702422 M19.90 R knee Pain in right knee 02078 38886 24448 M25.561 Cortisone injection given into R knee, tolerated procedure well, post injection instructio ns given [id number] Kathy May MD , [facility], [address] [place] [address] 05/15/2018 10:28:42 05/15/2018 11:04:06 Essential hypertension 65675667 I10 not at goal today goal < 140/90will fu one month at visit Diabetes mellitus 831146 09 E11.9 at goal A1C 7doing wellchecki ng sugars and in good rangerouti ne f/u Osteoarthritis 552105095 M19.90 Dr Null g cortisone inj with effectgoin g to try a bracefunct ional nowconside r Synvysc in futuredefe r TKR Hyperlipidemia 58153644 E78.5 LDL not at goal for diabetesst atin was increasedf /u labs 5 months Nocturia 024720805 R35.1 see notes below Benign pro static hyperplasia with outflow obstruction 458829774 N40.1 sx BPH has [facility] enlarged and smooth and symetrical not tenderwe will get a UAstart terazosin, discussed SE f/u one month [id number] Kathy May MD , [facility], [address] [place] [address] 06/13/2018 16:31:38 06/13/2018 16:55:46 Essential hypertension 88570210 I10 not at goal today goal < 140/90lowe r today than usualcould be due to terazosinn ot sx Osteoarthritis 002434987 M19.90 right kneeconsid ering replacemen tongoing pain after his knee injection Nocturia 058676553 R35.1 see notes below Benign pro static hyperplasia with outflow obstruction 085316977 N40.1 sx are much lessdoing very well with terazosinn o SE continue script [id number] Kathy May MD , [facility], [address] [place] [address] 09/30/2018 14:00:06 09/30/2018 14:56:20 Adult health examination 306412272 Z00.00 see Risk Assessment and Lifestyle Change Counseling section above Counseling 691456206 Z71 .9 Depression screening 171 831135 Z13.89 depression screening tool administer ed, entered into emr, scored and discussed, time greater than 7.5 minutes Benign ess ential hypertension 6835380 I10 Blood pressure at goallabs reviewedno changes Osteoarthritis 044038799 M19.90 right kneehas replacemen t scheduled for naging to be active with pain now, but walking lessNaprox en PRN, avoiding twice daily dosing and trying to to take some days off Hypothyroidism 70020952 E03.9 stableannu al TSH Mixed hyperlipidemia 267 081591 E78.2 near goalcontin ue statindiet education today Hyperlipidemia 86349973 E78.5 LDL not at goal for diabetesst atin was increasedf /u labs 5 months Essential hypertension 76938932 I10 not at goal today goal < 140/90lowe r today than usualcould be due to terazosinn ot sx Diabetes mellitus 178772 09 E11.9 slightly above goal Atrial fibrillation [address] Vázquez rhad ablation and continues to have intermitte nt sx- rare now Benign pro static hyperplasia with outflow obstruction 140613869 N40.1 ongoing sxbetter but some nights worse than othersstil l on low dose of terazosinw ill increase to five mg at HS Overweight 967007172 E66 .3 noted small gainsome LE edema today, dependentw ill followgoal working on DM mgmthealth y diet reviewed [id number] Samra Farooq NP , [facility], [address] [place] [address] 11/27/2018 10:19:36 11/27/2018 11:09:14 Preoperative cardiovascular examination 946862689 Z01.810 cleared for TKR. Osteoarthr itis of knee 458406258 M17.11 per ortho Paroxysmal atrial fibrillation 919930617 I48.0 in a fib today - paroxysmal -=should not interfere with surgery unless rapid a fib. Will need post op anticoagul ation per your protocol. We have cardiac clearance from Dr Rodríguez . Diabetes mellitus 632076 09 E11.9 stable [id number] ALVINA Arambula , [facility], [address] [place] [address] 12/30/2018 14:27:23 12/31/2018 13:36:01 Irregular heart rate 708996604 R00.8 EKG done & reviewed by HS. Pt. sent to [facility] ED. [id number] Tuan De Anda MD FP, [facility], [address] [place] [address] 01/07/2019 12:03:49 01/07/2019 12:42:06 Diabetes mellitus 07793134 E11.9 were high in hospitalba ck down into 110-120 range Atrial fibrillation [address] Vázquez rand Dr Will jacobo to schedule ablationno t sxirregula r/rate controlled today Constipation 76548165 K5 9.00 with oxycodone use and decreased mobility after knee replacemen tboosting fiber and fluidsusin g MOM and sennaadvis ed to keep regular, don't get bound up, goal daily mvmt w/o strainingm edication to achieve goalsadd colace and /or miralax Essential hypertension 81664512 I10 at goallowerr ecent hypotensio n with afibnot sx History of right total knee replacement 0368190398 342092 Z96.651 progressin g as expectedus ing oxycodone and tylenol for painfeels he still has painnot bad at nightdoesn 't like SE of oxy (constipat ion and tired and a bit forgetful/ confused)a dvised to try 1/2 dose oxy, limit as abletake tylenol three times a dayf/u with ortho as directed [id number] Kathy May MD , [facility], [address] [place] [address] 02/05/2019 14:59:14 02/06/2019 11:46:37 Essential hypertension 99608189 I10 in rangecan be higher at homefollow ed also by cardiology Atrial fibrillation 4943 6004 I48.91 and fluttersch eduling ablation for sxchecking pulsescurr ently on amiodarone 200 mg daily Diabetes mellitus 762446 09 E11.9 A1C near goalweight down with poor appetite after surgerywou ld like to keep current meds/planw atching dietagrees doesn't need to gain weighthopi ng to resume exercise routine soonokay to go to gym, for knee rehab, keep heart rate under 100 at this time until further cardiology clearancen o sx [id number] in 3 monthsf/u May 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 321010654 E11.[address] Pollock annually for monitoring have notes from 01/2018 History of right total knee replacement 4243196712 317954 Z96.651 doing wellat goals per Dr Godoy ill some swellinggr adual return to activitya few more PT sessions left Bilateral hearing loss 69807471 H91.93 pt is not concernedw tamir feels hearing is offonly mild loss higher frequency hereagree to defer audiology eval at this point [id number] Kathy May MD , [facility], [address] [place] [address] 03/31/2019 10:10:26 03/31/2019 10:33:36 Essential hypertension 51299942 I10 in rangeat goal< 130/80 Diabetes mellitus 119828 09 E11.9 A1C near goal7.1 stable meds/diete xercise increasing ibkxzY2K and f/u at [facility] Hyperlipidemia 29925953 E78.5 ongoing monitoring f/u [facility] Atrial fibrillation 4943 6004 I48.91 improved post ablationf/ u April with cardiology , likely med changes then Lesion of skin of face 4815345435 06 L98.9 severy red raised lesionssig sun exposure, golfsruddy complexion referral derm eval and tx History of right total knee replacement 5171915567 125689 Z96.651 doing wellat goals per Dr Tony ashby ongoingusi ng some compressio nstill doing PTworking up to playing golfnot using pain medication s [id number] Kathy May MD , [facility], [address] [place] [address] 10/01/2019 13:53:00 10/01/2019 14:34:48 Adult health examination 479477987 Z00.00 see Risk Assessment and Lifestyle Change Counseling section above Counseling 008460541 Z71 .9 Depression screening 171 398996 Z13.89 depression screening tool administer ed, entered into emr, scored and discussed, time greater than 7.5 minutes Hypothyroidism 65311336 E03.9 stableannu al TSH Benign pro static hyperplasia with outflow obstruction 047177936 N40.1 ongoing sxbetter with terazosin Diabetes mellitus 864572 09 E11.9 A1C near goal73 stable meds/dietc ontinue curent plan Essential hypertension 46438971 I10 in rangeat goal< 130/80 Hyperlipidemia 18361875 E78.5 ongoing monitoring close to goalon statinwill increase to 80 mg Atrial fibrillation 4943 6004 I48.91 having about weekly runs with sx afterwards in afib todayworki ng with cardiology rate controlled meeting about future ablation Insomnia 276873921 G47.0 0 newer issue for irina g with fit bitnotes 7 hours most nights, 7.5but often in bed longerhard er to fall asleep at nightdiscu ssed 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 no tv or screen two hours before bedget up if not falling asleep, quiet activitygo to bed and get up 8 hours later, no matter whatconsid er melatoninf /u as needed [id number] Nilesh Llanes MD FP, [facility], [address] [place] [address] 03/15/2020 14:32:58 03/16/2020 10:16:42 Pain of right hip joint 5550914348 77604 M25.551 new right hip pain, seems localized at bursahas been communicat ing w Dr Roblero who thought bursitisso me radiation down legwill do PT appt JARED and then can f/u if injection neededgoal to resume daily walksusing only Tylenol for pain, no nsaids give heart disease/an ticoag 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 540891327 E11.3299 annual visit w lora todd ng given pandemicf/ u one month VV DM mgmt Essential hypertension 11723577 I10 in rangeat goal< 130/80on home checksnot sxno changes Atrial fibrillation 4943 6004 I48.91 less frequent sx now that MICHELLE txplans still for ablation after pandemic restrictio nsDr Zan following Obstructiv e sleep apnea syndrome 07456997 G47.33 dx and txdoing wellmanagi ng CPAPnotes less cardiac sx [id number] Nagi Whitman , PT Physical Therapy, [facility] [address] [place] [address] 03/16/2020 09:55:13 03/16/2020 14:36:54 Pain of right hip joint 6479939455 58581 M25.551 74 year old male with findings [...] Include: Therapeuti c exercise and manual therapy [id number] Nagi Whitman , PT Physical Therapy, [facility] [address] [place] [address] 03/23/2020 10:57:39 03/24/2020 08:05:38 Pain of right hip joint 1340572186 92372 M25.551 74 year old male with findings [...] Include: Therapeuti c exercise and manual therapy [id number] David Boyd MD Sports Medicine, [facility] [address] [place] [address] 03/24/2020 08:16:58 03/25/2020 12:00:38 Pain of hip region 16712989 M25.551 Rubens is a 74 yo male [...] we have an appointmen t for him. [id number] David Boyd MD Sports Medicine, [facility] [address] [place] [address] 03/29/2020 14:05:50 04/11/2020 11:41:26 Pain of hip region 78342224 M25.551 Rubens is a 74 yo male [...] with me as needed for further care. [id number] Nagi Whitman , PT Physical Therapy, [facility] [address] [place] [address] 04/06/2020 12:01:53 04/06/2020 16:28:38 Pain of right hip joint 0581219333 35920 M25.551 74 year old male with findings [...] Include: Therapeuti c exercise and manual therapy [id number] Nagi Whitman , PT Physical Therapy, [facility] [address] [place] [address] 04/13/2020 11:33:27 04/13/2020 12:51:03 Pain of right hip joint 2708488107 91363 M25.551 74 year old male with findings [...] Include: Therapeuti c exercise and manual therapy [id number] Nilesh Llanes MD , [facility], [address] [place] [address] 04/15/2020 09:27:50 04/19/2020 12:26:45 Atrial fibrillation 47577989 I48.91 still has sx at timeson CPAP to tx apnea and to have ablation scheduled, Dr Nabeel rae Benign pro static hyperplasia with outflow obstruction 640083819 N40.1 stabletera zosin tx Diabetes mellitus 958313 09 E11.9 A1C near goal7.7 stable meds/diets ome SE with metformin, go back to XL formulatio nexercise limited due to hip pain, working on thisSellfy blood sugarsno nhatV6K May Essential hypertension 80665750 I10 in rangeat goal< 130/80on home checksnot sxno changes Hyperlipidemia 65744616 E78.5 high dose statinannu al labs Hypothyroidism 39711731 E03.9 stableannu al TSH Pain of ri ght hip joint 7837349531 [address] Boyd and Nagi in [facility] PT/HEP [id number] Nagi Whitman , PT Physical Therapy, [address] [address] 04/20/2020 11:38:03 04/20/2020 13:11:44 Pain of right hip joint 6139877041 16547 M25.551 74 year old male with findings [...] Include: Therapeuti c exercise and manual therapy [id number] Nagi Whitman , PT Physical Therapy, [address] [address] 04/27/2020 11:34:55 04/28/2020 08:29:37 Pain of right hip joint 0638501932 60632 M25.551 74 year old male with findings [...] Include: Therapeuti c exercise and manual therapy [id number] Nagi Whitman , PT Physical Therapy, [address] [address] 05/13/2020 13:00:37 05/13/2020 13:34:49 Pain of right hip joint 6024894569 49622 M25.551 74 year old male with findings [...] Include: Therapeuti c exercise and manual therapy [id number] Nagi Whitman , PT Physical Therapy, [address] [address] 05/25/2020 13:31:31 05/30/2020 09:16:43 Pain of right hip joint 9124875705 27466 M25.551 74 year old male with findings [...] Include: Therapeuti c exercise and manual therapy [id number] Nagi Whitman , PT Physical Therapy, [address] [address] 06/07/2020 09:33:48 06/07/2020 13:34:28 Pain of right hip joint 7905559267 37698 M25.551 74 year old male with findings [...] Include: Therapeuti c exercise and manual therapy [id number] Nagi Whitman , [facility] Physical Therapy, [address] [address] 06/10/2020 15:31:57 06/13/2020 11:53:09 Pain of right hip joint 8483834454 47771 M25.551 74 year old male with findings [...] Include: Therapeuti c exercise and manual therapy [id number] David Boyd MD Sports Medicine, [address] [address] 06/14/2020 07:41:21 06/15/2020 14:44:19 Pain of hip region 13196952 M25.551 Rubens is a 74-year-ol d male [...] injections which would require referral to a currency exchange specialist by his primary care doctor. I am of course happy to see Rubens romo on an as-needed basis for further care. Low back pain 747426272 M54.5 [id number] Nagi Whitman , PT Physical Therapy, [address] [address] 06/22/2020 13:03:11 06/23/2020 17:02:44 Pain of right hip joint 6474797996 65515 M25.551 74 year old male with findings [...] also has a goal of returning to golVeliQg without pain or limitation . We will [...] Include: Therapeuti c exercise and manual therapy [id number] Nagi Whitman , PT Physical Therapy, [address] [address] 07/13/2020 11:56:38 07/14/2020 14:33:44 Pain of right hip joint 9177549533 22876 M25.551 74 year old male with findings [...] Include: Therapeuti c exercise and manual therapy [id number] Nagi Whitman , PT Physical Therapy, [address] [address] 07/22/2020 15:01:44 07/25/2020 07:58:38 Pain of right hip joint 9302713651 80147 M25.551 74 year old male with findings [...] Include: Therapeuti c exercise and manual therapy [id number] Nilesh Llanes MD , [facility], [address] [place] [address] 09/08/2020 13:14:44 09/08/2020 16:12:02 Active or passive immunization 469992583 Z23 [id number] Nagi Whitman , [facility] Physical Therapy, [facility] [address] [place] [address] 09/29/2020 07:30:51 10/03/2020 08:18:53 Right side sciatica 4855443909 44640 M54.31 75 year old male with findings [...] Include: Therapeuti c exercise and manual therapy [id number] Nagi Whitman , [facility] Physical Therapy, [facility] [address] [place] [address] 10/06/2020 08:32:29 10/06/2020 11:03:15 Right side sciatica 8674738430 72132 M54.31 75 year old male with findings [...] Include: Therapeuti c exercise and manual therapy [id number] Kathy May MD , [facility], [address] [place] [address] 10/07/2020 09:02:11 10/07/2020 16:45:07 Adult health examination 266807231 Z00.00 see Risk Assessment and Lifestyle Change Counseling section above Counseling 534330872 Z71 .9 including cardiovasc ular risk reduction counseling Depression screening 171 794451 Z13.89 depression screening tool administer ed, entered into emr, scored and discussed, time greater than 7.5 minutes Screening for alcohol abuse 544314562 Z13.39 Atrial fibrillation 4943 6004 I48.91 has had tx and no further sxDr Zanronald so far with resultssta ble on xarelto Benign pro static hyperplasia with outflow obstruction 070249166 N40.1 stabletera zosin tx Diabetes mellitus 076318 09 E11.9 A1C near goal7.4 in May stable meds/dietd oing wellless exerciseho ping to change this soon with tx back painblood sugars in good range on home checks 110-130 [id number] due in l schedule Essential hypertension 65611291 I10 goal< 130/80on home checks usually at goalmild elev todaynot sxno changeswi l send more readings via portal Hyperlipidemia 47287531 E78.5 high dose statinannu al labsat goal Hypothyroidism 08092501 E03.9 stableannu al TSH Degenerati on of lumbar intervertebral disc 71851633 M51.36 Dr Frank ion therapy wil l [facility] for ongoign improvemen ts and return to more exercise [id number] Nagi Whitman , PT Physical Therapy, [address] [address] 10/13/2020 08:33:24 10/13/2020 12:31:36 Right side sciatica 1361461329 88699 M54.31 75 year old male with findings [...] Include: Therapeuti c exercise and manual therapy [id number] Nagi Whitman , PT Physical Therapy, [address] [address] 11/04/2020 14:07:23 11/04/2020 14:34:03 Right side sciatica 5744277853 23160 M54.31 75 year old male with findings [...] Include: Therapeuti c exercise and manual therapy [id number] Nagi Whitman , PT Physical Therapy, [facility] [address] [place] [address] 11/23/2020 11:34:10 11/23/2020 13:05:55 Right side sciatica [id number] 27841 M54.31 75 year old male with findings [...] Include: Therapeuti c exercise and manual therapy [id number] Kathy May MD , [facility], [address] [place] [address] 03/28/2021 09:54:19 03/29/2021 10:22:46 Essential hypertension 89777489 I10 goal < 130/80 has not checked today at home has been at goal not sx no changes today fu at wellness visit Diabetes mellitus 251758 09 E11.9 A1C near goal 7.9 recheck April and Sep/Oct stable meds/diet 120-130 range at home when he checks stable diet limited exercise with back pain right now hopes to improve stable meds Degenerati on of lumbar intervertebral disc 38311037 M51.36 Dr Corley injection tx doing better now but has been slow still resting PT hoping in coming weeks will refer as needed Atrial fibrillation 4943 6004 I48.91 ablation/C PAP tx not sx Hypothyroidism 74693425 E03.9 mildly low TSH not sx recheck April Obstructiv e sleep apnea syndrome 06021383 G47.33 dx and tx doing well managing CPAP 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 708154343 E11.3299 followed by ophtho no vision changes [id number] Nagi Whitman , PT Physical Therapy, [address] [address] 06/06/2021 12:54:12 06/06/2021 17:12:14 Lumbar radiculopathy 629888001 M54.16 75 year old male with signs [...] Include: therapeuti c exercise and manual therapy [id number] Nagi Whitman , PT Physical Therapy, [address] [address] 06/22/2021 14:56:21 06/26/2021 07:42:59 Lumbar radiculopathy 725149791 M54.16 75 year old male with signs [...] Include: therapeuti c exercise and manual therapy [id number] Nagi Whitman , PT Physical Therapy, [address] [address] 08/01/2021 10:54:12 08/01/2021 13:12:10 Lumbar radiculopathy 951471632 M54.16 75 year old male with signs [...] Include: therapeuti c exercise and manual therapy [id number] Kathy May MD , [facility], [address] [place] [address] 08/11/2021 09:42:13 08/14/2021 09:56:39 Hypothyroidism 58309579 E03.9 TSH in rangestabl e with current dosecontin ue 125 mcg Atrial fibrillation 4943 6004 I48.91 ablation/C PAP txRRR todayon NOACnot sx Essential hypertension 27877525 I10 goal < 130/80at goalnot sxno changesBMP reviewed Diabetes mellitus 059100 09 E11.9 A1C at goal adjusted for age < 8 7.5gets good readings on blood sugar at homestable w mgmtmild peripheral neuropathy signs Obstructiv e sleep apnea syndrome 67293014 G47.33 dx and tx doing well managing CPAP Hyperlipidemia 13234145 E78.5 high dose statinannu al labsat goal Peripheral neuropathy due to type 2 diabetes mellitus 6576758602 107 E11.42 mild signs on examexcell ent foot care and integrity [id number] Ann-Marie Rodriguez , [facility], [address] [place] [address] 09/06/2021 09:50:59 09/07/2021 14:35:02 Active or passive immunization 474467145 Z23 [id number] Nagi Whitman , PT Physical Therapy, [facility] [address] [place] [address] 09/07/2021 10:28:18 09/07/2021 15:04:57 Lumbar radiculopathy 859371624 M54.16 Patient Goals: Be able to walk [...] exercise program to address his remaining deficits. [id number] Kathy May MD , [facility], [address] [place] [address] 11/09/2021 10:02:48 11/09/2021 11:00:32 Adult health examination 514798532 Z00.00 see Risk Assessment and Lifestyle Change Counseling section above Counseling 440533870 Z71 .9 including cardiovasc ular risk reduction counseling Depression screening 171 525413 Z13.31 depression screening tool administer ed, entered into emr, scored and discussed, time greater than 7.5 minutes Screening for alcohol abuse 378755046 Z13.39 Atrial fibrillation 4943 6004 I48.91 ablation/C PAP txRRR todayon NOACnot sx Benign pro static hyperplasia with outflow obstruction 715806996 N40.1 stabletera zosin tx Degenerati on of lumbar intervertebral disc 89299729 M51.36 Dr Corley injection txsx get better and worsenotes overall progressio nstaying active as ablegoing to try recumbant stationary bike Diabetes mellitus 773830 09 E11.9 A1C at goal adjusted for age < 8 7.5gets good readings on blood sugar at homestable w mgmtmild peripheral neuropathy signs Hyperlipidemia 12104119 E78.5 high dose statinannu al labsat goal 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 854844558 E11.3299 followed by ophtho no vision changes Hypothyroidism 91846997 E03.9 TSH elevatedno t sxraised levo and f/u labs in Nov Osteoarthritis 826083105 M19.90 ongoing issues back and hands and kneesdiscu ssed management pain controlexe rciseanti- inflammato ry diet Venous sta sis edema of bilateral lower limbs 9696572379 9008986 I87.2 LE edemanotes improved but ongoingwil ling to try compressio nwill order [id number] Kathy May MD , [facility], [address] [place] [address] 05/10/2022 09:49:55 05/16/2022 17:07:59 Essential hypertension 66801194 I10 goal < 130/80at goal notes some sx lightheade d, episodedec rease amlodipine to 5 mgf/u one month 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 270524553 E11.3299 followed by ophtho no vision changes Atrial fibrillation 4943 6004 I48.91 on NOACnot sxstablera te control Degenerati on of lumbar intervertebral disc 41345737 M51.36 Dr Corley injection txrecent steroid injection 2 weeks agostaying active Diabetes mellitus 642076 09 E11.9 A1C at goal adjusted for age < 8 7.3encoura ged to check sugars for sx?ing lower bp or sugars causing sxadvised to tx and sx lows even if his blood sugar meter not on hand Hypothyroidism 50156788 E03.9 TSH in rangelower in Nov, normal Marchrepea t next labs for stability Benign pro static hyperplasia with outflow obstruction 930993263 N40.1 noting some increase nighttime sx but intermitte ntmonitor for nowterazos in [place] [id number] Kathy May MD , [facility], [address] [place] [address] 06/13/2022 15:51:26 06/14/2022 10:53:37 Essential hypertension 65577692 I10 goal < 130/80near ly at goal here todaymostl y at goal at home no longer lightheade d on less amlodipine will leave on lower dose and f/u at wellness Benign pro static hyperplasia with outflow obstruction 296203327 N40.1 ongoing increased nocturiawo uld like it to be lesson terazosinu rology referral for further considerat ion tx options [id number] Kathy May MD , [facility], [address] [place] [address] 08/28/2022 08:57:43 08/28/2022 10:18:54 Stiff neck 164294501 M43.6 noted on examsx are more acute with shoulder painsome radicular sx on right armPT for tx to startadvis ed gentle ROMcontinu e tylenol Pain of ri ght shoulder joint 2050223105 4390361 M25.511 check labs for PMR/lymemo re acute onset limitation right shoulderno manny left on exampain right armno injury or new activitywo rse in AMcannot take nsaidstaki ng tylenolsta rt PTtx PMR if labs dx [id number] Kathy May MD , [facility], [address] [place] [address] 09/12/2022 08:34:44 09/12/2022 13:52:49 Lyme disease 94202322 A69.20 positive lyme, sxwas tx for PMR working dxhe had pain again in shoulder when missed a dose of prednisone we will try to wean him off prednisone he is tolerating doxyhe has no other sx or complaints repeat labs todayf/u three weeks Atrial fibrillation 4943 6004 I48.91 on NOACnot sxstablera te control Hypothyroidism 50943107 E03.9 TSH was low in crea sed levorepeat TSHno sx (other than as related above) Essential hypertension 71529211 I10 goal < 130/80at goal on recheck [id number] Randy Wilder MD , [facility], [address] [place] [address] 09/17/2022 17:13:53 10/25/2022 13:54:07 COVID-19 947472422 U07.1 Tested positive on Saturday09/14/22Sx improving, currently mild Exposure t o SARS-CoV-2 342294828 Z20.828 Will consider paxlovid but on prednisone and other meds that may interactWi ll discuss with PCP and f/u with pt tomorrow (Saturday)P t will fu if sx worsen - pt & in agreement w plan. [id number] Kathy May MD , [facility], [address] [place] [address] 10/03/2022 09:30:38 10/03/2022 16:10:18 Lyme disease 50006669 A69.20 treated 28 dayssee notes below re joint painsno other sx Pain of mu ltiple joints 55180420 M25.50 more right UE, wrist to shoulderbe tter on prednisone at higher doselittle relief on 5 mg, some at 7.5, much less to no pain on 10 mghas rheum appt Nov 07will increase pred to 10 mg pending this apptrepeat labswas thought to be PMR, then dx lyme and had COVID in interimunc lear why still pain after lyme tx Diabetes mellitus 415403 09 E11.9 A1C at goal adjusted for age < 8 7.9 has had higher readings on prednisone and now lowerhe is watching dietwishes to be more active, which he can do if he keeps with prednisone for pain mgmtlabs reviewedon ly urine microalb due before wellnesswi ll do sooner as he is going to lab re abovecan cancel appt for lab in [id number] Kathy May MD , [facility], [address] [place] [address] 10/31/2022 10:37:28 10/31/2022 15:03:55 Diabetes mellitus 66258821 E11.9 A1C at 9.6, NOT at goal adjusted for age < 8 increase glimepirid e to 8 mg has had higher readings on prednisone he is watching diet Degenerati on of lumbar intervertebral disc 02676035 M51.36 appt with surgeon on 11/13had gotten rx for diclofenac but advised not to use with prednisone Essential hypertension 97041284 I10 goal is < 130/80, NOT at goal [id number] 4 in office, similar readings at home since stopping amlodipine will not add another agent or increase lisinopril at this time given upcoming apptswill follow up after appointmen ts this monthPotas sium decreased from 5.9 to 5.2 with discontinu ation of CCB Pain of mu ltiple joints 28023674 M25.50 more right UE, wrist to shoulder, hips, kneesbette r on prednisone at higher dose, recently exacerbate d with putting up xmas treedecrea sed to 7.5 mg since last apptadvise d to not increase dose d/t elevated A1chas rheum appt Nov [id number] Kathy May MD , [facility], [address] [place] [address] 11/13/2022 11:36:00 11/13/2022 12:07:51 Adult health examination 910179096 Z00.00 see Risk Assessment and Lifestyle Change Counseling section above Counseling 873746707 Z71 .9 including cardiovasc ular risk reduction counseling Depression screening 171 622233 Z13.31 depression screening tool administer ed, entered into emr, scored and discussed, time greater than 7.5 minutes Screening for alcohol abuse 852798141 Z13.39 Polymyalgi a rheumatica 52718118 M35.3 saw rheumfelt correct w dxon steroids but mildly sx stillgiven higher sugars thinking about moving to methotrexa te txhas f/u mid Novemberrec ommended PTpt likely to do this in November and wants [facility], referral placed for easereassu maryam todaygoal to get off steroids and mgmt sx Degenerati on of lumbar intervertebral disc 75984232 M51.36 appt with surgeon on 11/13ink ing about possible procedure to release pressurefi nds that radiating back pain does affect his goal of walking 3 miles daily Diabetes mellitus 373019 09 E11.9 A1C at 9.6, NOT at goal adjusted for age < 8 increased glimepirid e to 8 mg this monththis is secondary to steroid txgoals right now to find alt mgmt to PMR and come off steroidsco ntinue healthy dietexerci se as toleratedc ontinue medscheck A1C in 3 months Essential hypertension 52675069 I10 close to [id number]/6 0sno changes at this timef/u 3 months Hypothyroidism 11904328 E03.9 TSH in range Octcontinu e currentrec heck for stability 3 mo Atrial fibrillation 4943 6004 I48.91 on NOACnot sxstablera te control Benign pro static hyperplasia with outflow obstruction 009156885 N40.1 feels sx well managed at this time [id number] Nagi Whitman , PT Physical Therapy, [address] [address] 12/13/2022 16:07:43 12/14/2022 08:12:50 Pain of left shoulder joint 8501212144 3531300 M25.512 77 year old male with findings [...] therapy Pain of ri ght shoulder joint 6681619474 9067490 M25.386 [id number] Kathy May MD , [facility], [address] [place] [address] 12/18/2022 09:34:18 12/18/2022 17:26:39 Pre-surgery evaluation 720424213 Z01.818 clear for his surgery with Dr Medina done with cardiology last week and reviewedla bs UTD in [facility] re to hold Xarelto 2 days before and after procedure Diabetes mellitus 115310 09 E11.9 A1C at 9.6, NOT at [...] week Degenerati on of lumbar intervertebral disc 14628114 M51.36 pt is clear for his decompress ion with Dr Oh 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 PMR or RAon hydroxychl oroquine and pred now with goal to wean prednisone after surgery [id number] Nagi Whitman , PT Physical Therapy, [facility] [address] [place] [address] 12/20/2022 16:26:59 12/21/2022 09:35:21 Pain of left shoulder joint 2053731412 7358258 M25.512 77 year old male with findings [...] therapy Pain of ri ght shoulder joint 9348118783 7920095 M25.754 [id number] Nagi Whitman , PT Physical Therapy, [facility] [address] [place] [address] 12/27/2022 09:49:08 12/27/2022 10:41:50 Pain of left shoulder joint 8487267020 7202715 M25.512 77 year old male with findings [...] therapy Pain of ri ght shoulder joint 9244677697 1063325 M25.141 [id number] Kathy May MD , [facility], [address] [place] [address] 02/13/2023 09:33:22 02/13/2023 10:38:45 Diabetes mellitus 27978176 E11.9 A1C up to 10, NOT at [...] follows Degenerati on of lumbar intervertebral disc 01713294 M51.[address] Julian and is doing wellless pain Polymyalgi a rheumatica 06792635 M35.3 working with rheumon hydroxychl oroquine and weaning prednisone some sx recurringh e has f/u in three mowill see how he does on prednisone weannoting that likely source of liver enzymes up is from hydroxychl oroquinewi ll update rhuem after labs Elevated l evel of transaminase and lactic acid dehydrogenase 437664837 R74.01 w/u below though suspect drug SE as noted abovef/u with rheum after labs Hypothyroidism 14750245 E03.9 TSH up to 5continue currentrec heck for stability 3 mo [id number] Nagi Whitman , PT Physical Therapy, [address] [address] 02/12/2023 14:53:43 02/13/2023 09:10:32 Pain of right shoulder joint 9996461230 6147059 M25.511 Muscle weakness 85734413 M62.81 [id number] Nagi Whitman , PT Physical Therapy, [facility] [address] [place] [address] 02/19/2023 16:17:42 02/20/2023 08:46:59 Pain of right shoulder joint 5571717717 6290467 M25.511 77 year old male with findings [...] function in this time frame. Muscle weakness 74014193 M62.81 [id number] Nagi Whitman , PT Physical Therapy, [facility] [address] [place] [address] 03/05/2023 12:19:23 03/05/2023 13:17:48 Pain of right shoulder joint 3681446897 8645636 M25.511 77 year old male with findings [...] function in this time frame. Muscle weakness 92108758 M62.81 [id number] Kathy May MD , [facility], [address] [place] [address] 03/20/2023 08:39:34 03/20/2023 12:19:32 Diabetes mellitus 76722504 E11.9 blood sugars are coming down on prednisone ranging 130-190die t stable, exercising regularly discussed other med options agree no changes today given improvingf /u labs 2 months Essential hypertension 96104236 I10 at goal< 130/80 Psoriasis 5576587 L40.9 notes some eruptions on right legconsist ent with psoriasis, not pruriticno te this is possible SE on Hydroxychl oroquinehe will treat topically and monitor Polymyalgi a rheumatica 62702704 M35.3 following with rheumatolo gyweaning prednisone taking hydroxychl oroquinemo nitoring Degenerati on of lumbar intervertebral disc 46956656 M51.[address] Eliel Escobar ght sided pain resolvedno w more left sided sxseeing PSS tomorrow [id number] Nagi Whitman , PT Physical Therapy, [address] [address] 03/14/2023 09:24:51 03/14/2023 10:27:45 Pain of right shoulder joint 4192369589 4265983 M25.511 77 year old male with findings [...] function in this time frame. Muscle weakness 05902517 M62.81 [id number] Nagi Whitman , PT Physical Therapy, [address] [address] 03/26/2023 14:19:32 03/26/2023 15:04:23 Pain of right shoulder joint 4715298789 7835048 M25.511 77 year old male with findings [...] function in this time frame. Muscle weakness 21435012 M62.81 [id number] Nagi Whitman , PT Physical Therapy, [address] [address] 04/02/2023 10:49:12 04/02/2023 11:41:40 Pain of right shoulder joint 6501912590 6537076 M25.511 77 year old male with findings [...] function in this time frame. Muscle weakness 64293002 M62.81 [id number] Nagi Whitman , PT Physical Therapy, [address] [address] 04/09/2023 13:34:52 04/09/2023 14:46:45 Pain of right shoulder joint 2198628754 2685860 M25.511 77 year old male with findings [...] function in this time frame. Muscle weakness 07035107 M62.81 [id number] Nagi Whitman , PT Physical Therapy, [address] [address] 04/30/2023 16:10:40 05/01/2023 11:19:35 Pain of right shoulder joint 7496388889 4714778 M25.511 77 year old male with findings [...] function in this time frame. Muscle weakness 55553910 M62.81 [id number] Kathy May MD FP, [facility], [address] [place] [address] 06/18/2023 09:37:08 06/18/2023 10:45:39 Cough 75537485 R05.9 occ use inhaler with sx illness Diabetes mellitus 671506 09 E11.9 blood sugars are coming downnotes much lower fastingdoe sn't like metformin, GI SE and in current arthritic pain setting this is hardtrial just one weruoP2U in 1-2 months Essential hypertension 28619069 I10 at goal< 130/80lowe r today, not sxcardiolo gy mgmt as well Hypothyroidism 67944917 E03.9 in range April Rheumatoid arthritis 698 49350 M06.9 working dson hydroxycho lorquine? effecthas pain, less than previoustr debbie to come off prednisone on 2mg daily now Psoriasis 8757533 L40.9 using topicalssu spect SE exacerbati on from hydroxycho lorquinewa iting for rheum appt Atrial fibrillation 4943 6004 I48.91 on NOACnot sxstablera te controlcar diology follows Degenerati on of lumbar intervertebral disc 94538247 M51.36 occ flares with painhas visit Dr Corley this Jul [id number] Nagi Whitman , PT Physical Therapy, [facility] [address] [place] [address] 06/18/2023 08:48:20 06/18/2023 13:53:20 Pain of right shoulder joint 8325391571 0365127 M25.511 Patient Goals:Be able to reach, push, [...] reached his balance exercise goals. 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 342094495 E11.3299 followed by ophtho no vision changeswor kempner on DM controlsee below Diabetes mellitus 410440 09 E11.9 A1C was high, > 9blood sugars coming down in past three weeks off prednisone he is willing to try 1000 mg daily dose metformin again, had some GI effects when taking on prednisone if he has SE can try splitting dose or stopcontin ue checking sugarswalk after mealsf/u at wellness Posterior rhinorrhea 758 14387 R09.82 notes sx for about six monthnight cough bothersome feels drip, mostly on left sidestart with trial nasal antihistam ine [id number] Kathy May MD , [facility], [address] [place] [address] 11/14/2023 09:57:53 11/14/2023 13:44:51 Adult health examination 980251125 Z00.00 see Risk Assessment and Lifestyle Change Counseling section above Depression screening 171 497597 Z13.31 depression screening tool administer ed Screening for alcohol abuse 176878192 Z13.39 Alcohol use screening tool administer ed Posterior rhinorrhea 758 06191 R09.82 sx are controlled when he uses azelastine enc to continue use as neededmay stop seasonally if not sx Bilateral carpal tunnel syndrome 4277212437 1918678 G56.03 new dxworking with rheumatolo gy for nowhome exercisesr ecommend splintingh as f/u with specialist at [facility] for further tx mgmt per referral of Dr Coronado Atrial fibrillation 4943 6004 I48.91 on NOACnot sxstablera te controlcar diology follows Degenerati on of lumbar intervertebral disc 10762360 M51.36 chronic painwonder ing how much RA drugs will helpcan f/u with Dr Corley for other txwill review with rheumadvis ed to let his sx guide him Diabetes mellitus 821037 09 E11.9 A1Cat goal 7.5range at home 100-140 oftendoing wellnote proteinuri a, will continue tracking annually and watch renal functionco ntinue current mgmt Essential hypertension 25983048 I10 not at goal< 130/80has been good at other apptssaw cardiolgy last month, 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 949399445 E11.3299 followed by ophtho up to date with eye careDM mgmt focus Rheumatoid arthritis 698 55501 M06.9 dual agents, Humira and methotrexa teDr Tallatf/u tomorrowho peful for ongoing pain reliefchro laura back pain, hand pain but now also some neuropathy Diabetic p eripheral neuropathy 951222781 E11.40 chronicnot es more pain in hands, carpal tunnelhas PRN gabapentin but uses this mainly for back pain [id number] Kathy May MD FP, [facility], [address] [place] [address] 04/29/2024 12:00:39 04/29/2024 12:49:53 Diabetes mellitus 05235293 E11.9 A1Cat goal 7.2attribu ami good control to good diet and regular exercisebi kes six miles most days, takes walksf/u six mono med chagnes Essential hypertension 03893398 I10 close to goal on recheckgoa l < 130/80noti ng at home can be up to 140 often, like every 3-4th checkwill increase lisinopril to 30 mghe will keep checkingf/ u if not improving f/u 6 mo at wellness routine Hypothyroidism 60485264 E03.9 in rangenot sx Rheumatoid arthritis [address] Webb owing and txunder control Diabetic p eripheral neuropathy 195865957 E11.40 chronichad confirmato ry neurologic testing w Dr Gonzalez with recent w/u for muscle wasting of hands Spinal melodie nosis in cervical region 07073686 M48.02 severe C3-4 and C5-6noting sx in UE and LEmuscle wasting, balance issueshas PT referralne eds laminectom y, neurosurge on at [facility] wants to schedulept wants to see Dr Julian again, has appt in June, sent records and hoping to talk w him sooner. [id number] Nagi Whitman , PT Physical Therapy, [facility] [address] [place] [address] 06/09/2024 11:22:41 06/11/2024 10:17:55 Spinal stenosis in cervical region 66134238 M48.02 78 year old male with findings [...] after surgery if indicated by his surgeon. [id number] Nagi Davenport EDD Physical Therapy, [facility] [address] [place] [address] 08/18/2024 09:55:52 08/20/2024 14:48:00 Cervical spondylosis 235083056 M47.812 79 year old male with findings [...] Include as appropriat e: therapeuti c exercise (67901), manual therapy (50632), therapeuti c activity (30394), gait training (76857), neuromuscu lar reeducatio n (73413), mechanical traction (30582) [id number] Nagi Davenport EDD Physical Therapy, [address] [address] 08/25/2024 10:29:19 08/28/2024 08:19:05 Cervical spondylosis 194883398 M47.812 79 year old male with findings [...] Include as appropriat e: therapeuti c exercise (95250), manual therapy (70260), therapeuti c activity (25203), gait training (90642), neuromuscu lar reeducatio n (08959), mechanical traction (78090) [id number] Nagi Davenport ED[facility] Physical [facility], [address] [address] 08/27/2024 11:28:00 08/27/2024 13:48:52 Cervical spondylosis 317109524 M47.812 79 year old male with findings [...] Include as appropriat e: therapeuti c exercise (79965), manual therapy (45250), therapeuti c activity (56699), gait training (87012), neuromuscu lar reeducatio n (46248), mechanical traction (92636) [id number] Nagi Davenport ED[facility] Physical [facility], [address] [address] 09/01/2024 09:55:46 09/01/2024 14:40:54 Cervical spondylosis 474969784 M47.812 79 year old male with findings [...] Include as appropriat e: therapeuti c exercise (84023), manual therapy (59594), therapeuti c activity (92642), gait training (42127), neuromuscu lar reeducatio n (04933), mechanical traction ([id number]) [id number] [facility], [address] [address] 09/03/2024 11:52:00 09/03/2024 15:21:32 Cervical spondylosis [id number] M47.812 79 year old male with findings [...] Include as appropriat e: therapeuti c exercise (69453), manual therapy (29909), therapeuti c activity (20422), gait training (52371), neuromuscu lar reeducatio n (53788), mechanical traction (48120) [id number] [facility], [address] [address] 09/08/2024 10:24:31 09/08/2024 12:43:04 Cervical spondylosis [id number] M47.812 79 year old male with findings [...] Without limitation s due to upper extremity Patient is performing a home exercise program [...] Include as appropriat e: therapeuti c exercise (03985), manual therapy (56600), therapeuti c activity (24504), gait training (64066), neuromuscu lar reeducatio n (33960), mechanical traction (90738) [id number] [facility], [address] [address] 09/15/2024 09:47:32 09/15/2024 13:15:54 Cervical spondylosis [id number] M47.812 79 year old male with findings [...] Include as appropriat e: therapeuti c exercise (10709), manual therapy (79998), therapeuti c activity (75645), gait training (71390), neuromuscu lar reeducatio n (50477), mechanical traction (66449) [id number] [facility], [address] [address] 09/29/2024 09:50:42 09/29/2024 12:54:36 Cervical spondylosis 502446268 M47.812 79 year old male with findings [...] Include as appropriat e: therapeuti c exercise (18316), manual therapy (40612), therapeuti c activity (48010), gait training (40742), neuromuscu lar reeducatio n (53458), mechanical traction (45435) [id number] KATIUSKA MCCLELLAND NP Physical Therapy, [address] [address] 10/15/2024 14:25:05 10/16/2024 12:15:46 Cervical spondylosis [id number] M47.812 79 year old male with findings [...] Include as appropriat e: therapeuti c exercise (33247), manual therapy (82513), therapeuti c activity (00333), gait training (78162), neuromuscu lar reeducatio n (91253), mechanical traction (64132) [id number] KATIUSKA MCCLELLAND NP [facility], [address] [address] 11/05/2024 13:52:40 11/05/2024 14:57:03 Cervical spondylosis [id number] M47.812 79 year old male with findings [...] Include as appropriat e: therapeuti c exercise (11698), manual therapy (96116), therapeuti c activity (66592), gait training (32608), neuromuscu lar reeducatio n (32299), mechanical traction (58580) [id number] Kathy May MD , [facility], [address] [place] [address] 12/02/2024 10:34:06 12/02/2024 11:09:45 Posterior rhinorrhea 98010074 R09.82 sx are controlled when he uses azelastine continuere fill today Atrial fibrillation 4943 6004 I48.91 on NOACnot sxstablera te controlcar diology visits and holter this spring Diabetes mellitus 703926 09 E11.9 A1Cat goal 6.7he is staying activeeati ng welltaking medication working w his neuropathy sx Essential hypertension 19447477 I10 elevated here todayat goal at [facility] in < 130/80no changes todayf/u with BP clinic in a monthcardi ology following as well Rheumatoid arthritis [address] Coronado left, will follow w Dr Harry woodruff changing from [facility] as no longer on free program and expensive, has enough until well controlled meeting Dr Ayala in December Bilateral hearing loss 53640539 H91.93 pt notes some issues, notes [facility] audiology apptear canals are clear Diabetic p eripheral neuropathy 866468135 E11.40 chroniccon firmed w EMG testingong oing issues w balancewor maisha w PTnormal DM foot exam Spinal melodie nosis in cervical region 88450229 M48.02 had four discs replacedsl ow recovery but feels he is improvedwo rking on regaining muscle and strenth in his hands [id number] KATIUSKA MCCLELLAND NP Physical Therapy, [facility] [address] [place] [address] 12/08/2024 09:54:51 12/10/2024 10:11:34 Cervical spondylosis [id number] M47.812 79 year old male with findings [...] Without limitation s due to upper extremity [id number]. We will continue to monitor this but [...] to manage this stadium stairs at the [facility] as a proxy for his balance [...] Include as appropriat e: therapeuti c exercise (91264), manual therapy (38834), therapeuti c activity (11933), gait training (88090), neuromuscu lar reeducatio n (21197), mechanical traction (21676) [id number] KATIUSKA MCCLELLAND NP Physical Therapy, [address] [address] 12/22/2024 12:49:14 12/22/2024 15:31:46 Cervical spondylosis 560302501 M47.812 79 year old male with findings [...] Without limitation s due to upper extremity veqvnedq76. We will continue to monitor this but [...] to manage this stadium stairs at the [facility] as a proxy for his balance [...] Include as appropriat e: therapeuti c exercise (95439), manual therapy (24540), therapeuti c activity (17065), gait training (03933), neuromuscu lar reeducatio n (70791), mechanical traction (68471) [id number] Kathy May MD , [facility], [address] [place] [address] 01/01/2025 10:11:35 01/04/2025 12:11:24 Essential hypertension 12206892 I10 Improved but still above goal [id number] KATIUSKA MCCLELLAND NP Physical Therapy, [facility] [address] [place] [address] 01/05/2025 11:29:07 01/05/2025 12:14:23 Cervical spondylosis 635781296 M47.812 79 year old male with findings [...] Without limitation s due to upper extremity . We will continue to monitor this but [...] to manage this stadium stairs at the [facility] as a proxy for his balance [...] Include as appropriat e: therapeuti c exercise (26366), manual therapy (30981), therapeuti c activity (68053), gait training (21617), neuromuscu lar reeducatio n (26244), mechanical traction (47290) [id number] KATIUSKA MCCLELLAND NP Physical Therapy, [facility] [address] [place] [address] 02/02/2025 14:31:40 02/02/2025 15:44:43 Cervical spondylosis 546246045 M47.812 79 year old male with findings [...] Without limitation s due to upper extremity [id number]. We will continue to monitor this but [...] to manage this stadium stairs at the [facility] as a proxy for his balance [...] Include as appropriat e: therapeuti c exercise (02037), manual therapy (54387), therapeuti c activity (18047), gait training (93813), neuromuscu lar reeducatio n (76956), mechanical traction (42635) [id number] Kathy May MD , [facility], [address] [place] [address] 03/10/2025 15:50:02 03/10/2025 17:32:54 Adult health examination 370055357 Z00.00 see Risk Assessment and Lifestyle Change Counseling section above Depression screening 171 875876 Z13.31 depression screening tool administer ed Screening for alcohol abuse 375807880 Z13.39 Alcohol use screening tool administer ed Atrial fibrillation 4943 6004 I48.91 on NOACnot sxstablera te controlhad holter and echoecho stableresu lts holter pending Benign pro static hyperplasia with outflow obstruction 670578173 N40.1 feels sx well managed at this time Degenerati on of lumbar intervertebral disc 41053915 M51.360 he is having very mild sxfeels positive to have had reparative surgeryno radicular sx Diabetes mellitus 003308 09 E11.9 A1C at goal < 8he is staying activeeati ng welltaking medication working w his neuropathy sx Diabetic p eripheral neuropathy 100154001 E11.40 chronicexc ellent foot caretakes balance precaution songoing work on this Essential hypertension 22935507 I10 goal < 130/80at goal here and homenot sxcan be higher at times at MD visitswill f/u six mo Hyperlipidemia 43563763 E78.5 high dose statinannu al labsat goal Hypothyroidism 28392226 E03.9 in rangestabl e 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 935036367 E11.3299 followed by ophtho up to date with eye careDM mgmt focusgood control Obstructiv e sleep apnea syndrome 74088006 G47.33 dx and tx doing well managing CPAPsaw sleep med for check upwill continue current POC Rheumatoid arthritis [address] Ayala, rheumconsi dering changing from Humira as no longer on free program and expensive, hasn't made change yetsx well managed Spinal melodie nosis in cervical region 47445858 M48.02 had four discs replaced Augusthas some premanent loss strength in hands but fully functional no paincomple manny OT [id number] KATIUSKA MCCLELLAND NP Physical Therapy, [address] [address] 03/30/2025 12:25:44 04/01/2025 09:49:30 Cervical spondylosis 875895505 M47.812 Patient Goals:To be able to Push, pull, lift, reach and carry as well as grasp for ADLs and recreation Without limitation s due to upper extremity [id number] patient rates his grasp is approximat anna [...] Member ID Guarantor Name 01/01/2025 2 [place]MEDICARE SUPPLE[place]) [id number] Maxim Bryan Cristin [id number] Maxim A Cristin 01/01/2025 1 [place] [employer] Maxim Irvin Cristin [id number] Maxim Irvin Cristin 01/05/2025 2 [place]MED[place]LE[id number] Maxim A Cristin [id number] Maxim A Cristin 01/05/2025 1 [place] Maxim A Cristin [id number] Maxim A Cristin 02/02/2025 2 [place]MED[place]PPLE[id number] Maxim A Cristin [id number] Maxim A Cristin 02/02/2025 1 [place] Maxim A Cristin [id number] Maxim A Cristin 03/10/2025 2 [place]MED[place]PPLE[place]) [id number] Maxim A Cristin [id number] Maxim A Cristin 03/10/2025 1 [place] [employer] Maxim A Cristin [id number] 0 Maxim A Cristin 03/30/2025 2 [place]MEDICARE SUPPLE[place]) [id number] Maxim A Cristin [id number] Maxim A Cristin 03/30/2025 1 [place] Maxim A Cristin [id number] Maxim A Cristin Notes Date Note Type Note Provider [...] eval if developing these sx JANN Rothman, [facility] 01/01/2025 10:44:08 01/05/2025 text/html [...] limitation in Walking/balance Nagi Whitman, PT [address] [place], [address], [facility] 01/05/2025 12:12:35 02/02/2025 text/html PT Initial Eval*Reported [...] limitation in Walking/balance Nagi Whitman, PT [address] [place], [address], [facility] 02/02/2025 15:07:24 03/10/2025 text/html Risk Assessment and Lifestyle Change Counseling (Medicare)Reported bypatient.Coronary Artery Disease Risk Assessment:Family History of Coronary Artery Disease; No personal history of diabetes; No history of peripheral vascular disease, AAA, or carotid disease; No personal history of coronary artery disease; [place] 10 year risk Breast Cancer Risk Assessment:No [...] steps average daily, he is at about 5004-2912 right nowhe feels balance piece from his [...] this yearhasn't come back blood sugar control [id number] is a 7checks daily and usually from 85-110 fastingno sx lows back is okaylower back mild sorenessmuch better after surgeryno radicular sxwhen he walks after 5761-9719 steps it gets betterneck is really goodno pain reallymild soreness in shoulders BP has been up and downwhen he checks it can be qisizydg321/67 this morninglast week at doctor visit it was 150/80this tends to occurat home under control home is goodw Marlenerelationship is greatthey are cruising alonghad a financial check up and they are in great shapeenjoy kids and grandkids still in their own homewant to stay as long as they cancondoplan to hire help if neededtwo floors but main bedroom on first floorhave local family support sees rheumatologygoign to try another agent not humira. Kathy May MD [address] [place] [address], [address], [facility] 03/10/2025 17:33:03 03/30/2025 text/html PT Initial Eval*Reported [...] limitation in Walking/balance Nagi Whitman, PT [address] [place], [address], [facility] 04/01/2025 09:27:27
== END 2025-05-05 11:56 | disposition home or self-care (01) ==
LOC: HO.HSMS 10:59
PROVIDERS: PCP Family Medicine; Visit Provider Nurse Practitioner Family
DX: R29.898 Other symptoms and signs involving the musculoskeletal system (principal); R26.9 Unspecified abnormalities of gait and mobility; G62.9 Polyneuropathy, unspecified; M48.02 Spinal stenosis, cervical region
CPT/HCPCS: 99214

== ENCOUNTER → 2025-05-05 10:58 | Outpatient (BNVA) | payer MEDICARE, BC, SELFPAY | PROVIDERS: PCP Family Medicine; Visit Provider Nurse Practitioner Family | DX: R29.898 Other symptoms and signs involving the musculoskeletal system (principal); R26.9 Unspecified abnormalities of gait and mobility; M48.02 Spinal stenosis, cervical region; G62.9 Polyneuropathy, unspecified | CPT/HCPCS: 99212 ==

== ENCOUNTER 2025-05-12 15:27 | Outpatient (AMB) | payer MEDICARE, BC, SELFPAY ==
[2025-05-12 15:29] VITALS: BP 140/78; PULSE 65; O2SAT 98; BMI 23.8
--- NOTE | 2025-05-12 15:29 | A.OFFVIS_ITS ---
Vital Signs 05/12/25 15:29 Height 5 ft 11 in Weight 170 lb 10.205 oz BMI 23.8 BP 140/78 H Blood Pressure Location Rt brachial Position Sitting Pulse 65 Pulse Source Pulse Oximeter Pulse Oximetry (%) 98 Oxygen Delivery Method Room Air Intake Visit Reasons: RA Intake Note: Patient last seen by Doctor Beatriz Ayala on 01/12/25. Patient presents for RA follow up and test results. Dbas Required: No Allergies cats Allergy (Intermediate, Uncoded 05/12/25 15:33) Headache Medication List - Last Reconciled 05/12/25 by Beatriz Ayala MD acetaminophen (Tylenol Extra Strength) 500 mg PO Q6H PRN atorvastatin 80 mg PO DAILY azelaic acid 15% 1 appl topical BID azelastine intranasal coenzyme Q10 (Ultra CoQ10) 150 mg PO DAILY cyanocobalamin (vitamin B-12) 500 mcg PO DAILY 30 days doxycycline hyclate 20 mg PO DAILY folic acid 1 mg PO DAILY gabapentin 300 mg PO TID PRN glimepiride 6 mg PO QAM ketoconazole 2% 1 appl topical DAILY levothyroxine 125 mcg PO DAILY lisinopril 30 mg PO DAILY melatonin 3 mg PO BEDTIME PRN metformin ER 500 mg PO BID metoprolol succinate ER 50 mg PO DAILY multivitamin 1 tab PO DAILY rivaroxaban (Xarelto) 20 mg PO DAILY terazosin 5 mg PO BEDTIME HPI Comments Details: Patient is a 79-year-old male with hyperlipidemia, hypothyroidism, diabetes complicated by neuropathy, hypertension, atrial fibrillation on Eliquis, 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 At that time was on Humira every 3 weeks due to insurance issues. Decision was made to his try and switch him to a bio similar however the co pay was still going to be $2000 Does not want to do infusions right now Would like to try another pill Rheumatologic History: Seronegative diagnosed 12/17 has hx of PSO HCQ started 12/17 ineffective & caused PSO flare DC 07/17 MTX started 07/17 ineffective DC 09/2023 Humira 09/2023 effective PMR 2021 Tapered off prednisone Initial history: This is a 77-year-old male with past medical history of hypertension, dyslipidemia, type 2 diabetes mellitus, obstructive sleep apnea degenerative disc disease of her lumbar spine presents for evaluation of PMR. Condition started the end of July patient noticing generalized stiffness of his neck, shoulders, hands, thighs. Stiffness improves in about 8 hours. Was evaluated by his PCP and was found to have significantly elevated inflammatory markers. He was started on prednisone 15 mg daily with dramatic improvement of his symptoms however his blood sugars were significantly elevated his prednisone was tapered to 7.5 mg daily. Patient felt that the higher dose of prednisone was more helpful. Was also found to have positive Lyme serology and received a 28 day course of doxycycline. He denied any tick bites and denied any activities that would put him at risk of a tick bite. Denies any skin rashes. He also denies any joint pain, jaw claudication, tongue pain. Denies any claudication of his hands or feet. Denies headaches, fevers, weight loss or blurry vision. Current Rheumatology Medication(s): Humira 40mg SC every 3 weeks (has a few more pens) [facility] Medical History (Updated 05/12/25 @ 15:56 by Beatriz Ayala MD) Encounter for monitoring of adalimumab therapy PMR (polymyalgia rheumatica) Low back pain, unspecified Psoriasis Degeneration of intervertebral disc of lumbar region Osteoarthritis Atrial fibrillation Hyperlipidemia Essential hypertension Obstructive sleep apnea Diabetes Hypothyroidism Surgical History H/O cervical spine surgery (~06/2024) H/O knee surgery H/O heart surgery Hx of excision of lamina of lumbar vertebra for decompression of spinal cord Hx of hernia repair Family History Mother Coronary arteriosclerosis Myocardial infarction Father Alcoholism Diabetes Social History Household Members: Spouse Household Members Other:: Alcohol intake: current Alcohol intake frequency: holidays/special occasions only Patient Tobacco Use Status: Former Tobacco user Current occupational status: retired 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 Review of Systems Const Details: Review of Systems Constitutional: Denies fever, chills, weight loss ENT: Denies vision changes, eye pain or eye redness, dental caries, dry mouth GI: Denies nausea, vomiting, diarrhea, abdominal pain, change in BM Pulm: Denies SOB, LESLIE, hemoptysis, wheezing Cards: Denies chest pain, palpitations Skin: Denies Raynaud's, rash, nail changes, photosensitivity, MARKETING TECHNOLOGY COORDINATOR: Denies headaches, weakness, paresthesias, recurrent falls MSK: as per HPI All other systems reviewed and are unremarkable except noted above Physical Exam Vital Signs: Last Vital Signs Pulse 65 05/12/25 15:29 BP 140/78 H 05/12/25 15:29 Pulse Ox 98 05/12/25 15:29 Oxygen Delivery Method Room Air 05/12/25 15:29 BMI result Body Mass Index 23.8 Vital signs reviewed Physical Examination CONSTITUITIONAL Patient alert and cooperative. Well appearing and in no apparent painful distress HEENT Conjunctiva and sclera clear. ?Pupils equal round and reactive to light. ?No lymphadenopathy. ? CHEST/RESPIRATORY SYSTEM Normal respiratory effort and able to speak in complete sentences. ?Clear to auscultation bilaterally. ?No crackles, rales, rhonchi, wheezes heard. CARDIAC SYSTEM Regular rate and rhythm. ?S1 and S2 heard no murmurs. ?Radial pulses intact bilaterally MSK Hands: ?Good boulevard glassware replacer strength bilaterally. No deformities noted. ?No synovitis noted to the MCPs, PIPs or DIPs. Mild dactylitis swelling of the 3rd digit on the right. But no tenderness to palpation of these joints. Bilateral thenar wasting and guttering of the dorsal interossei Wrists: ?Full range of motion at the wrists without pain. ?No tenderness to palpation or synovitis noted to the wrists. Elbows: Full range of motion without pain. No tenderness, weakness, swelling, increased warmth or erythema. Shoulders: Full range of motion without pain. No tenderness, weakness, swelling, increased warmth or erythema. Knees: ?Full range of motion. ?No tenderness, swelling, increased warmth or erythema.?No effusion or crepitations Ankles: Full range of motion. ?No tenderness, swelling, increased warmth or erythema.? Feet: ?Negative squeeze test. ?No tenderness to palpation or swelling of the MTPs. Tender points:?No tenderness to palpation of the bilateral trapezius, supraspinatus, greater trochanters, anterior costochondral junctions, bilateral gluteal areas, bilateral suboccipital muscle insertions SKIN Skin intact without rashes. Results Reviewed Results Reviewed: Laboratory Tests 04/29/25 08:18 WBC 4.5 L RBC 4.33 L Hgb 13.6 L Hct 40.9 L Plt Count 198 ESR 5 Sodium 146 H Potassium 4.5 Chloride 110 H Carbon Dioxide 30 H BUN 21 H Creatinine 0.95 AST 40 H ALT 42 H Alkaline Phosphatase 67 C-Reactive Protein < 0.10 Rheumatology labs 11/07/22 10:45 Rheumatoid Factor < 13.0 Cycl Citrul Peptide IgG <16 FAINA Screen POSITIVE A FAINA Titer 1:40 H HLA-B27 Negative Infectious serologies 01/08/25 08:11 Hepatitis A IgM Ab Nonreactive Hep Bs Antigen Negative Hep Bs Antibody NONREACTIVE Hep B Core Total Ab Nonreactive Hepatitis C Ab (EIA) Nonreactive TB Test (T-Spot) Com Negative Assessment & Plan Assessment & Plan (1) Seronegative rheumatoid arthritis: Comment: Seronegative diagnosed 12/17 has hx of PSO HCQ started 12/17 ineffective & caused PSO flare DC 07/17 MTX started 07/17 ineffective DC 09/2023 Humira 09/2023 effective Code(s): M06.00 - Rheumatoid arthritis without rheumatoid factor, unspecified site Category: Medical Plan: #Seronegative RA Patient is a 73-year-old male with seronegative RA currently in remission on Humira. Did not meet criteria for the financial assistance. Currently has enough Humira to Last up till May and this is using it every 3 weeks. Does not want to do any infusions at this time. We will try leflunomide Note made of the mild transaminitis. 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 Has a very long half-life. Needs cholestyramine washout if there is desire for Initiation: CBC, BMP, LFTs, hepatitis-B and C serologies every 2-4 weeks for 3 months Monitoring: CBC, BMP, LFTs, hepatitis B and C serologies Plan I spent 30 minutes reviewing the record and labs, taking a history, examining the patient, discussing the treatment plan and documenting in the medical record Medications: New leflunomide 10 mg PO DAILY 90 tabs 1RF M06.00 - Rheumatoid arthritis without rheumatoid factor, unspecified site Discontinued folic acid Discontinued Reason: Doctor's Order 1 mg PO DAILY 90 tabs 1RF M06.00 - Rheumatoid arthritis without rheumatoid factor, unspecified site Coding Level of Care Code Est Pt Level 4 (53113) Complex EM visit Add On G2211 Diagnoses Seronegative rheumatoid arthritis M06.00 Pancytopenia D61.818 Encounter for monitoring leflunomide therapy Z51.81; Z79.69
--- OUTSIDE RECORDS SUMMARY | 2025-05-12 17:42 | XMS_ITS | Data Portability ---
Author Organization [facility], [facility] Address [address] [place] [address] Care Team Providers Care Cottage Supervisor Name Role Phone KATHY MAY Primary Care Provider PEPE BOYD Sports Medicine NAGI WHITMAN Physical Therapist VY SEGURA Assurance Senior JOHNNA HESS Bi Developer GUSTAVO ZIMMER Integration Director BETH JULIAN Neurologist Assessment Encounter Date Assessment [...] meeting your goals. Please visit our website [employer] for more patient resources. As part of [...] Details Appointments LAB Follow-Up 2024 09:00A [facility] Lab Not available Not available Not available Follow Up, 2024 11:00A M Kathy May MD Not available Not available Not available LAB Follow-Up 2025 09:00A [facility] Lab Not available Not available Not available Wellness Visit 2025 11:15A M Kathy May MD Not available Not available Not available Lab None recorded. Referral None recorded. Procedures None recorded. Surgeries None recorded. Imaging None recorded. Medication Orders None recorded. Patient TargetsNo targets recorded. Patient Instructions Encounter Date Encounter Id Patient Instructions Last Modified By Organization Details Last Modified Time 03/10/2025 [id number] please bring us a copy of your [...] furth er confi rmati on Not Available [address], [address], 03/04/2025 11:04:52 03/04/20 25 03/04/2025 HGB A1C estimated average glucose 154.2 mg/dL Not Available [address], [address], 03/04/2025 11:04:52 03/04/20 25 03/04/2025 MICRO ALBUM IN/CR EATIN INE RATIO PANEL , URINE microalbumin 39.3 mg/L 1.3-20 .0 high Not Available [address], [address], 03/04/2025 13:36:54 03/04/20 25 03/04/2025 MICRO ALBUM IN/CR EATIN INE RATIO PANEL , URINE creatinine urine 96.6 mg/dL 30.0-1 25.0 Not Available [address], [address], 03/04/2025 13:36:54 03/04/20 25 03/04/2025 MICRO ALBUM IN/CR EATIN INE RATIO PANEL , URINE microalb/cre at ratio 40.7 mg/g_ creat 0.0-29 .0 high Not Available [address], [address], 03/04/2025 13:36:54 03/04/20 25 03/04/2025 TSH TSH 1.57 uIU/m L 0.50-6 .00 The Ameri can [employer] ge of Endoc rinol ogy and Ameri can Thyro id Assoc iatio n recom mend goal TSH value s betwe en 0.4-4 .0 mIU/m L. Not Available [address], [address], 03/04/2025 14:05:39 03/04/20 25 03/04/2025 BASIC METAB OLIC PANEL glucose 188 mg/dL 70-100 high Not Available [address], [address], 03/04/2025 15:49:00 03/04/20 25 03/04/2025 BASIC METAB OLIC PANEL BUN 17 mg/dL 7-18 Not Available [address], [address], 03/04/2025 15:49:00 03/04/20 25 03/04/2025 BASIC METAB OLIC PANEL creatinine 1.0 mg/dL 0.8-1. 3 Not Available [address], [address], 03/04/2025 15:49:00 03/04/20 25 03/04/2025 BASIC METAB OLIC PANEL B/C 17.0 ratio Not Available [address], [address], 03/04/2025 15:49:00 03/04/20 25 03/04/2025 BASIC METAB [...] be used in pregn flavio. Not Available [address], [address], 03/04/2025 15:49:00 03/04/20 25 03/04/2025 BASIC METAB OLIC PANEL sodium 142 mmol/ L 136-14 5 Not Available [address], [address], 03/04/2025 15:49:00 03/04/20 25 03/04/2025 BASIC METAB OLIC PANEL potassium 4.8 mmol/ L 3.5-5. 1 Not Available [address], [address], 03/04/2025 15:49:00 03/04/20 25 03/04/2025 BASIC METAB OLIC PANEL chloride 106 mmol/ L 96-107 Not Available [address], [address], 03/04/2025 15:49:00 03/04/20 25 03/04/2025 BASIC METAB OLIC PANEL anion gap 8.0 5.0-15 .0 Not Available [address], [address], 03/04/2025 15:49:00 03/04/2003/04/2025 BASIC METAB OLIC PANEL CO2 28 mmol/ L 21-32 Not Available [address], [address], 03/04/2025 15:49:00 03/04/20 25 03/04/2025 BASIC METAB OLIC PANEL calcium 9.1 mg/dL 8.5-10 .3 Not Available [address], [address], 03/04/2025 15:49:00 03/04/20 25 03/04/2025 LIPID PANEL cholesterol 101 mg/dL <200 mg/dl Iam able 200-2 39 mg/dl Borde rline High >240 mg/dl High Not Available [address], [address], 03/04/2025 15:49:01 03/04/20 25 03/04/2025 LIPID PANEL triglyceride s 55 mg/dL <150 mg/dL Vanita l 150-1 99 mg/dL Borde rline High 200-4 99 mg/dL High >500 mg/dL Very High Not Available [address], [address], 03/04/2025 15:49:01 03/04/20 25 03/04/2025 LIPID PANEL direct HDL 41 mg/dL <40 mg/dl - Major Risk for CHD >60 mg/dl - Negat brandon Risk for CHD Not Available [address], [address], 03/04/2025 15:49:01 03/04/2003/04/2025 DIREC T LDL direct LDL 52 mg/dL RISK CATEG ORY LDL GOAL _ CHD or CHD Risk Equiv alent s <100 mg/dl (10-y ear risk >20%) 2+ Risk Facto rs <130 mg/dl (10-y ear risk <= 20%) 0-1 Risk Facto r <160 mg/dl Almo st all peopl e with 0-1 risk facto r have a 10 year risk <10%, thus 10 year risk asses ment in peopl e with 0-1 risk facto r is not neces shayla. Not Available [address], [address], 03/04/2025 15:49:02 03/10/20 , echoc ardio gram, trans thora cic, compl ete No observ ation record ed. raul Not Available 2024 12:56:59 03/11/2003/01/2025 talat r monit or No observ ation record ed. raul [facility] [address], [place], [address], 03/11/2025 16:22:29 Result Notes None recorded. Problems Name Problem SNOMED Code Status Onset Date Resolution Date Notes Provider Name and Address Organization Details Recorded Time Atrial fibrillat ion 15722036 Active 2014 Not Available [facility] 4 01:33:21 Diabetes mellitus 23711171 Active 2015 Not Available [facility] 4 01:33:22 Essential hypertens ion 45436939 Active 2015 Not Available [facility] 4 01:33:21 Hyperlipi demia 69817412 Active 2015 Not Available [facility] 4 01:33:21 Osteoarth ritis 555852036 Active 2015 neck, knee, hands Not Available [facility] 4 01:33:21 Hypothyro idism 07417878 Active 2015 Not Available [facility] 4 01:33:21 Seasonal allergy 872839224 Active 2016 Not Available [facility] 4 01:33:21 Pain of joint of elbow 868132129 Completed 201610/01/2019 Kathy May MD [address] [place] [address], [address] , [facility] 9 14:21:17 Benign prostatic hyperplas ia with outflow obstructi on 089859540 Active 2017 Not Available [facility] 4 01:33:21 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 878101057 Active 2018 Not Available [facility] 4 01:33:21 Degenerat ion of lumbar intervert ebral disc 84697433 Active 2019 Not Available [facility] 4 01:33:21 Obstructi ve sleep apnea syndrome 40488987 Active 2020 Not Available [facility] 4 01:33:22 Polymyalg ia rheumatic a 90143632 Completed 202211/14/2023 Kathy May MD [address] [place] [address], [address] , [facility] 3 10:50:43 Rheumatoi d arthritis 69446187 Active 2022 Not Available [facility] 4 01:33:21 Spinal stenosis in cervical region 93141428 Active 2023 Kathy May MD [address] [place] [address], [address] , [facility] 5 11:06:55 Diabetic periphera l neuropath y 300373688 Active 2024 Kathy May MD [address] [place] [address], [address] , [facility] 5 11:04:54 Benign essential hypertens ion 7058873 Active 2017 [facility] 5 16:11:36 Mixed hyperlipi demia 455087588 Active 2017 [facility] 5 16:11:36 Paroxysma l atrial fibrillat ion 253781357 Active 2017 [facility] 5 16:11:36 Drug therapy finding 466551171 Active 2017 [facility] 5 16:11:36 Osteoarth ritis of right knee joint 81295528868 9100 Active 2017 [facility] 5 16:11:36 Type 2 diabetes mellitus 36365667 Active 2017 [facility] 5 16:11:36 Chronic systolic heart failure 271898488 Active 2017 [facility] 16:11:36 Notes:Some problems listed i n Documents: #[id number], #[id number], #[id number], #[id number], #[id number] could not be added to this patient's chart. Please review these documents and add these problems to the patient's chart manually as needed. Problem Notes None recorded. Procedures Surgical History Date Name Laterality Status Provider Name and Address Organization Details Recorded Time 03/30/20 44114: Neuromuscular Re-Education completed Nagi Whitman, PT [address] [place], [address], [facility] 04/01/2025 09:23:38 03/30/20 Treatment and Advice completed Nagi Whitman, PT [address] [place], [address], [facility] 03/30/2025 12:50:56 03/10/20 Medicare Wellness Visit completed Kathy Tinajero [facility] 03/08/2025 11:50:25 02/03/20 13450: Neuromuscular Re-Education completed Nagi Whitman, PT [address] [place], [address], [facility] 02/02/2025 15:07:00 02/03/20 Treatment and Advice completed Nagi Whitman, PT [address] [place], [address], [facility] 02/02/2025 14:34:48 01/05/20 50925: Neuromuscular Re-Education completed Nagi Whitman, PT [address] [place], [address], [facility] 01/05/2025 12:12:05 01/05/20 Treatment and Advice completed Nagi Whitman, PT [address] [place], [address], [facility] 01/05/2025 12:06:35 12/22/19 80846: Neuromuscular Re-Education completed Nagi Whitman, PT [address] [place], [address], [facility] 12/22/2024 13:34:51 12/22/19 25 Treatment and Advice completed Nagi Whitman, PT [address] [place], [address], [facility] 12/22/2024 13:18:54 12/08/19 40297: Therapeutic Exercise completed Nagi Whitamn, PT [address] [place], [address], [facility] 12/08/2024 10:31:52 12/08/19 Treatment and Advice completed Nagi Whitman, PT [address] [place], [address], [facility] 12/08/2024 10:28:48 11/05/20 38544: Therapeutic Exercise completed Nagi Whitman, PT [address] [place], [address], [facility] 11/05/2024 14:35:21 11/05/20 Treatment and Advice completed Nagi Whitman, PT [address] [place], [address], [facility] 11/05/2024 14:34:16 10/15/20 02441: Therapeutic Exercise completed Nagi Whitman, PT [address] [place], [address], [facility] 10/15/2024 18:20:55 10/15/20 Treatment and Advice completed Nagi Whitman, PT [address] [place], [address], [facility] 10/15/2024 15:04:06 09/29/20 80060: Therapeutic Exercise completed Nagi Whitman, PT [address] [place], [address], [facility] 09/29/2024 10:37:55 09/29/20 Treatment and Advice completed Nagi Whitman, PT [address] [place], [address], [facility] 09/29/2024 10:02:22 09/15/20 38666: Therapeutic Exercise completed Nagi Whitman, PT [address] [place], [address], [facility] 09/15/2024 10:35:38 09/15/20 Treatment and Advice completed Nagi Whitman, PT [address] [place], [address], [facility] 09/15/2024 10:29:49 09/08/20 87338: Therapeutic Exercise completed Nagi Whitman, PT [address] [place], [address], [facility] 09/08/2024 11:02:59 09/08/20 Treatment and Advice completed Nagi Whitman, PT [address] [place], [address], [facility] 09/08/2024 10:57:27 09/03/20 69968: Therapeutic Exercise completed Nagi Whitman, PT [address] [place], [address], [facility] 09/03/2024 14:23:47 09/03/20 Treatment and Advice completed Nagi Whitman, PT [address] [place], [address], [facility] 09/03/2024 12:12:37 09/01/20 54451: Therapeutic Exercise completed Nagi Whitman, PT [address] [place], [address], [facility] 09/01/2024 10:29:53 09/01/20 Treatment and Advice completed Nagi Whitman, PT [address] [place], [address], [facility] 09/01/2024 10:00:08 08/27/20 54566: Therapeutic Exercise completed Nagi Whitman, PT [address] [place], [address], [facility] 08/27/2024 12:04:26 08/27/20 Treatment and Advice completed Nagi Whitman, PT [address] [place], [address], [facility] 08/27/2024 12:00:40 08/25/20 45416: Therapeutic Exercise completed Nagi Whitman, PT [address] [place], [address], [facility] 08/27/2024 10:53:41 08/25/20 Treatment and Advice completed Nagi Whitman, PT [address] [place], [address], [facility] 08/25/2024 11:11:05 08/18/20 Physical Activity Counselling completed Nagi Whitman, PT [address] [place], [address], [facility] 08/18/2024 10:10:16 08/18/20 24 28858: PT Eval Low Complexity completed Nagi Whitman, PT [address] [place], [address], [facility] 08/18/2024 10:10:16 08/18/20 Treatment and Advice completed Nagi Whitman, PT [address] [place], [address], [facility] 08/18/2024 10:42:21 10/11/20 16 16433: Therapeutic Exercise completed Murali Smith, PT, DPT, [address], [address], [facility] 10/11/2016 09:31:04 10/11/20 16 07863: Manual Therapy completed Murali Smith, PT, DPT, [address], [address], [facility] 10/11/2016 09:31:09 10/01/20 16 59002: PT Evaluation completed Murali Smith PT, DPT, [address], [address], [facility] 10/01/2016 13:41:44 09/25/20 16 Medicare Wellness Visit completed Kathy May MD [address] [place] [address], [address], [facility] 09/25/2016 13:54:23 Imaging Results None [...] e 137 mcg (0.1 %) nasal spray [place] 2 sprays twice a day by intranas [...] Not Available Not Avai lable Fluzone High-Dose 7964-8930 (PF) 180 mcg/0.5 mL intramusc ular syringe TO BE ADMINIST ERED BY PHARMACI ST FOR IMMUNIZA TION 04/02 completed Not Available Not Available Not Available Vitals Date Recorded Body height Heart rate Systolic blood pressure Diastolic blood pressure Provider Name and Address Organization Details Last Updated DateTime 01/01/2025 180.85 cm 58 /min 142 mm[Hg] 74 mm[Hg] Wilma Darby LPN [facility] 01/01/2025 10:43:24 Date Recorded Body height Body mass index (BMI) Body weight Body temperature Heart rate Oxygen saturation Oxygen saturation in Arterial blood by Pulse oximetry Systolic blood pressure Diastolic blood pressure Provider Name and Address Organization Details Last Updated DateTime 180.85 cm 23.6 kg/m2 75837.5 g 96 [degF] 66 /min 98 % 98 % 128 mm[Hg] 62 mm[Hg] Kathy Tinajero MA [facility] 16:10:07 Social History Question Answer Notes LastModified by Organization Details LastModified Time Tobacco Smoking Status Former Smoker in 20's only [facility] 04/28/2016 09:34:03 Do You Have An [...] Or The Highest Degree You Have Received? [id number] Information not available 11/13/2022 Have There Been [...] anxious, or unable to sleep at night)? [id number] Information not available 11/13/2022 Family History Relationship [...] (COVID-19) vaccine, UNSPECIFIED 5 completed JAX Prince [facility] 05/03/2025 11:07:37 Tdap 5 completed JAX Prince [facility] 05/03/2025 11:07:48 Influenza, high-dose, trivalent, PF 7 completed Not Available [facility] 12/12/2019 02:21:40 Tdap 5 completed Not Available [facility] 12/06/2023 01:33:22 zoster live 4 completed Not Available [facility] 12/06/2023 01:33:22 pneumococcal, unspecified formulation 4 completed Not Available [facility] 12/06/2023 01:33:22 Pneumococcal conjugate PCV 13 5 completed Not Available [facility] 12/06/2023 01:33:22 influenza, unspecified formulation 4 completed Not Available [facility] 12/06/2023 01:33:22 Influenza, high-dose, trivalent, PF 6 completed Not Available [facility] 12/06/2023 01:33:22 pneumococcal polysaccharide PPV23 4 completed Not Available [facility] 12/06/2023 01:33:22 Influenza, split virus, quadrivalent, preservative 8 completed JAX Prince, [facility] 03/10/2025 16:18:16 Pneumococcal conjugate PCV 13 8 completed Not Available [facility] 12/06/2023 01:33:22 Influenza, high-dose, quadrivalent, PF 0 completed Wilma Darby LPN [facility] 09/08/2020 14:04:25 Influenza, split virus, quadrivalent, preservative 9 completed Not Available [facility] 12/06/2023 01:33:22 Influenza, split virus, quadrivalent, preservative 9 completed Not Available [facility] 12/06/2023 01:33:22 Influenza, high-dose, quadrivalent, PF 1 completed Melissa Carney RN BSN [facility] 09/06/2021 14:03:17 COVID-19, mRNA, LNP-S, PF, 30 mcg/0.3 mL dose 1 completed Not Available [facility] 12/06/2023 01:33:22 COVID-19, mRNA, LNP-S, PF, 30 mcg/0.3 mL dose 1 completed Not Available [facility] 12/06/2023 01:33:22 COVID-19, mRNA, LNP-S, PF, 30 mcg/0.3 mL dose 1 completed Not Available [facility] 12/06/2023 01:33:22 COVID-19, mRNA, LNP-S, PF, 30 mcg/0.3 mL dose 2 completed Not Available [facility] 12/06/2023 01:33:22 COVID-19, mRNA, LNP-S, PF, 30 mcg/0.3 mL dose 2 completed Not Available [facility] 12/06/2023 01:33:22 Influenza, split virus, quadrivalent, preservative 2 completed Not Available [facility] 12/06/2023 01:33:22 SARS-COV-2 (COVID-19) vaccine, UNSPECIFIED 3 completed Not Available [facility] 12/06/2023 01:33:22 influenza, unspecified formulation 3 completed Not Available [facility] 12/06/2023 01:33:22 zoster, unspecified formulation 3 completed Not Available [facility] 12/06/2023 01:33:22 zoster, unspecified formulation 4 completed Kathy May MD [address] [place] [address], [address], [facility] 03/10/2025 17:27:21 Past Encounters Encounter ID Performer Location Encounter Start Date Encounter Closed Date Diagnosis/Indication Diagnosis SNOMED-CT Code Diagnosis ICD10 Code Diagnosis Note [id number] Kathy May MD , [facility], [address] [place] [address] 04/28/2016 09:19:26 04/28/2016 10:25:43 Cough 34010211 R05 pt presents with URI sx and now ongoing cough and PND lungs sounds ronchorous and diminished but improved after updraft with duoneb no evidence of bacterial infection, sinus/ear/ pna tx below has apt in two weeks sooner f/u if not improving instr to avoid constipati on with use of codiene [id number] Kahty May MD , 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, [address] [place] [address] 05/15/2016 15:28:45 05/15/2016 16:52:11 Atrial flutter 2375535 I48.92 pt with more bouts of atrial [...] with ptkeep Dr Bravo apt next week [id number] Kathy May MD , [facility], [address] [place] [address] 06/12/2016 10:43:50 06/12/2016 11:20:05 Hypothyroidism 21122080 E03.9 refill meds, stableTSH 3.66 Hyperlipidemia 25637242 E78.5 stableLDL 97, HDL 41 Essential hypertension 21176103 I10 at goalnormal renal function Atrial fibrillation 4943 6004 I48.91 Lawrence this afternoonE F 35% recent imagingnor mal holter other than afib/flutt ersx with fatigue and edemawill f/u Lawrence's notes and planpt aware Diabetes mellitus 514837 09 E11.9 A1C was highpt has been focussed on heartplan to get back to checking sugars at homewatche s diet, takes medswillin g to meet with diabetes ed in future Screening for malignant neoplasm of colon 976653000 Z12.11 will consider colonoscop y after a fib tx resolved Allergic rhinitis 673315 04 J30.9 discussed neti potdust mite ppxthen consider OTC flonase [id number] Kathy May MD , [facility], [address] [place] [address] 09/25/2016 13:26:11 09/25/2016 14:20:20 Screening for disorder 581272526 Z11.59 Adult heal th examination 078525063 Z00.00 see Risk Assessment and Lifestyle Change Counseling section above Counseling 192380923 Z71 .9 Hypothyroidism 86322693 E03.9 stableannu al TSH Hyperlipidemia 90761834 E78.5 stablecont inue statin Essential hypertension 84868875 I10 not at goal here or hometc with Dr Lane ed add amlodipine 2.5 mg daily Atrial fibrillation [address] Linn moreno on decreasing amiodarone advised ongoing ETOH less than one a dayf/u Lawrence in October, echo Diabetes mellitus 668592 09 E11.9 at goalhas made improvemen ts with diet, metformin, exerciseco ntinue A1C biannualha d eye exam December but need local ophthorefe rral madesome evidence neuropathy on examstable renal function Osteoarthritis 088954379 M19.90 neck, hands, armshas had relief with PT for neck painwould like referral [id number] Murali Smith, PT, DPT, CSC[facility] Physical Therapy, [facility] [address] [place] [address] 10/01/2016 12:53:39 10/01/2016 13:52:46 Neck pain 77153296 M54.2 Pt is a 71 y.o. male who reports to PT with c/o L greater than R sided neck pain due to arthritis Pt presents with mild cervicotho racic scoliosis [...] outlined above. Treatment Plan: Patient to return 1-2 times per week for 4-6 weeks. We expect significan t improvemen t [...] with no more than 2/10 c/o pain [id number] Murali Smith, PT, DPT, [facility] Physical Therapy, [address] [address] 10/11/2016 09:23:33 10/11/2016 13:00:06 Neck pain 30056361 M54.2 Pt still with moderate stiffness/ hypomobili ty of L sided cervical segments in downglidin g, improved with manual techniques . At end of treatment pt noted feeling better. [id number] Murali Smith, PT, DPT, [facility] Physical Therapy, [address] [address] 10/22/2016 09:29:35 10/22/2016 12:43:22 Neck pain 82922628 M54.2 Pt with improving joint mobility on the L however still considerab le difference between R segments. [id number] Murali Smith, PT, DPT, [facility], [address] [place] [address] 11/05/2016 09:29:49 11/05/2016 11:00:28 Neck pain 37931257 M54.2 Pt no longer with soft tissue nor joint restrictio ns. Pt demonstrat es HEP correctly and pain-free. Pt understood concepts of safety in a way to manage and potential future pain. Pt is aware of how to contact PT again if needed. [id number] Kathy May MD , [facility], [address] [place] [address] 04/02/2017 10:39:25 04/02/2017 11:16:48 Hypothyroidism 23004147 E03.9 stableannu al TSH Seasonal allergy 1000603 04 J30.2 has had intermitte nt sxusing fluticason eavoids other meds given cardiac issues previously hasn't needed proair Hyperlipidemia 94058610 E78.5 stablecont inue statin Essential hypertension 42455513 I10 not at goalgenera lly has higher levelsstat es Lawrence gupta was okay with thisno med changes todaywill call Dr Bravo and reviewmerari tate also recommend daily ASA Diabetes mellitus 038797 09 E11.9 stop pioglitazo neat goalhome checks lower rangef/u PSA this Atrial fibrillation 4943 6004 I48.91 has been stable, no sxmeds reduced with cardiology Prostate s pecific antigen above reference range 036613047 R97.20 up from 2.97 in 2015no new sxpt prefers monitoring now will repeat 6 monthsagre e urology referral if persistant [id number] Kathy May MD , [facility], [address] [place] [address] 05/02/2017 16:40:21 05/02/2017 17:34:57 Pain of joint of elbow 125080225 M25.529 enc to try exercises givenenc to try alternate computer station and/or use gel pad for armcould do PTf/u if sx worseningr est and ice PRN Osteoarthritis 911988796 M19.90 neck, hands, armsschedu le for right knee cortisone injection, had one over a year ago with relief, hopes to buy some more time with another injectioni nstr to do PT exercises daily?if could be developing a psoriatic component to arthritis though generally consistent pattern with use and age Essential hypertension 86099919 I10 not at goal but lower on recheckpt follows with Dr Bravo; spoke with him this weekDr Lawrence's goals for patient to stay in 140-150 systolic okaypressu res at [facility] office have been betterhas f/u Dr Bravo in falltaking meds, no SE no changes in POC today taught 4-7-8 breathing today [id number] ALVINA Arambula , [facility], [address] [place] [address] 05/08/2017 09:38:25 05/08/2017 10:32:43 Screening for malignant neoplasm of colon 137653533 Z12.11 Referral for a DIRECT booked colonoscop y. This patient is a healthy ASA Class 1 or 2 patient (only mild systemic disease), or a STABLE, well controlled insulin dependent diabetic. They do not have serious cardiac disease ie [place]/angiopl asty within 1 year, symptomati c CHF; renal failure with CKD 4 or 5; take Coumadin, Plavix, Aggrenox, etc. Osteoarthr itis of knee 143608071 M17.9 Right, Cortisone injection given into R knee, tolerated procedure well, post injection instructio ns given. F/U PRN [id number] Kathy May MD , [facility], [address] [place] [address] 07/23/2017 15:35:27 07/23/2017 16:18:48 Active or passive immunization 127968566 Z23 Pain of jocelyn int of elbow 664181229 M25.529 ongoing issue forearm and elbowsome associatio n with golfsome on leftnow willing to start PTprefers E'ton Essential hypertension 84552410 I10 at goalno changes today Diabetes mellitus 535804 09 E11.9 as he is having se with metformin we will redcue and change to long actingone sx low overall great controlclo se f/u at [facility] Atrial fibrillation 4943 6004 I48.91 has been stable, no sx Thoracic back pain 57657 8004 M54.6 new BL back paintight on examlimite d forward flexionadv ised stretching , back hygienef/u at [facility] [id number] Johnna Fuentes MD [facility], [facility] [address] [place] [address] 07/25/2017 08:15:48 07/25/2017 11:46:57 [id number] Minda Pendleton Ms, PT Physical Therapy, [address] [address] 08/08/2017 10:25:05 08/08/2017 13:19:32 Pain of elbow region 93920657 M25.062 [id number] Minda Pendleton Ms, PT Physical Therapy, [address] [address] 08/12/2017 09:01:44 08/12/2017 12:21:00 Pain of elbow region 56412820 M25.053 [id number] Minda Pendleton Ms, PT Physical Therapy, [address] [address] 08/19/2017 08:58:20 08/20/2017 07:19:13 Pain of elbow region 10446193 M25.011 [id number] Minda Pendleton Ms, PT Physical Therapy, [address] [address] 08/26/2017 09:24:52 08/26/2017 13:46:46 Pain of elbow region 10642084 M25.357 [id number] Minda Pendleton Ms, PT Physical Therapy, [address] [address] 09/03/2017 09:28:05 09/03/2017 11:12:39 Pain of elbow region 03613035 M25.076 [id number] Minda Pendleton Ms, PT Physical Therapy, [address] [address] 09/12/2017 11:01:37 09/12/2017 13:46:46 Pain of elbow region 30603930 M25.293 [id number] Minda Pendleton Ms, PT Physical Therapy, [address] [address] 09/20/2017 09:10:23 09/20/2017 11:46:22 Pain of elbow region 26044036 M25.632 [id number] Kathy May MD FP, [facility], [address] [place] [address] 09/26/2017 10:07:57 09/26/2017 10:46:45 Adult health examination 620466409 Z00.00 see Risk Assessment and Lifestyle Change Counseling section above Counseling 881279773 Z71 .9 Screening for disorder 624880644 Z11.59 Atrial fibrillation 4943 6004 I48.91 has been stable, no sxseeing Dr Bravo who is retiring, he will see another provider in that officerece nt visitno med changesref ill metoprolol Hypothyroidism 63275297 E03.9 stableannu al TSH Osteoarthritis 494580926 M19.90 would like repeat injection right kneeaware this is not an ongoing sustainabl e planhe will continue exercisesh as done PT will look into ortho options, synvysc in spring if needed Hyperlipidemia 82186094 E78.5 stablecont inue statin Diabetes mellitus 603053 09 E11.9 at goalwould like to be able to decrease pxfeS5t 6.5tolerat ing current dosessome microalbun iuriasome peripheral loss sensation BL feet laterally onlychecki ng blood sugars most days in AMadvised to check other times of day, can create a schedule for himself as he likes routineno med changes todayf/u 6 mo Essential hypertension 45869436 I10 at goal on recheckrev iews with Dr Bravo cardiology as wellmeds stayed the same after last visitcheck s at home no changes today [id number] Minda Pendleton Ms, PT Physical Therapy, [address] [address] 09/30/2017 09:24:27 09/30/2017 10:30:38 Pain of elbow region 43059934 M25.511 [id number] Minda Pendleton Ms, PT Physical Therapy, [address] [address] 10/01/2017 15:36:19 10/01/2017 15:36:34 [id number] ALVINA Arambula , [facility], [address] [place] [address] 10/08/2017 09:26:31 10/08/2017 10:13:03 Osteoarthritis of knee 627743288 M17.9 Right, Cortisone injection given into R knee, tolerated procedure well, post injection instructio ns given. F/U PRN [id number] Minda Alvareze Ms, PT Physical Therapy, [address] [address] 10/09/2017 11:43:01 10/09/2017 12:20:35 Pain of elbow region 05800395 M25.850 [id number] Kathy May MD , 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 options with orthorefer ral madeokay to iceokay periodic naproxen, not daily(pt doesn't like to take and tries to limit) Atrial fibrillation [address] Vázquez rhad ablation and continues to have intermitte nt sxhe has f/u with him in a few weeks Hyperlipidemia 91608548 E78.5 not on therapeuti c dosing of statinagre eable to increasef/ u labs in the fall Essential hypertension 15472980 I10 at goal on recheckrev iews with Dr Gurpreet charlton cardiology as welllisino pril dose reviewed at 20 mg Diabetes mellitus 531559 09 E11.9 at goal A1C 7meds are decreased and he feel much better with less GI SEhad eye examblood sugars at home goodDC pioglitazo ne as he is not taking and control is goodroutin e f/u at [facility] [id number] ALVINA Arambula , [facility], [address] [place] [address] 04/09/2018 07:26:36 04/09/2018 07:55:44 Osteoarthritis 268359633 M19.90 R knee Pain in right knee 73231 45113 09470 M25.561 Cortisone injection given into R knee, tolerated procedure well, post injection instructio ns given [id number] Kathy May MD FP, [facility], [address] [place] [address] 05/15/2018 10:28:42 05/15/2018 11:04:06 Essential hypertension 82976540 I10 not at goal today goal < 140/90will fu one month at visit Diabetes mellitus 856693 09 E11.9 at goal A1C 7doing wellchecki ng sugars and in good rangerouti ne f/u Osteoarthritis 737320029 M19.90 Dr Null g cortisone inj with effectgoin g to try a bracefunct ional nowconside r Synvysc in futuredefe r TKR Hyperlipidemia 37487796 E78.5 LDL not at goal for diabetesst atin was increasedf /u labs 5 months Nocturia 146522360 R35.1 see notes below Benign pro static hyperplasia with outflow obstruction 087631335 N40.1 sx BPH has had routine PSA screening in pastprosta te it enlarged and smooth and symetrical not tenderwe will get a UAstart terazosin, discussed SE f/u one month [id number] Kathy May MD , [facility], [address] [place] [address] 06/13/2018 16:31:38 06/13/2018 16:55:46 Essential hypertension 25521800 I10 not at goal today goal < 140/90lowe r today than usualcould be due to terazosinn ot sx Osteoarthritis 024017878 M19.90 right kneeconsid ering replacemen tongoing pain after his knee injection Nocturia 694284704 R35.1 see notes below Benign pro static hyperplasia with outflow obstruction 488736435 N40.1 sx are much lessdoing very well with terazosinn o SE continue script [id number] Kathy May MD , [facility], [address] [place] [address] 09/30/2018 14:00:06 09/30/2018 14:56:20 Adult health examination 362532785 Z00.00 see Risk Assessment and Lifestyle Change Counseling section above Counseling 146762746 Z71 .9 Depression screening 171 881598 Z13.89 depression screening tool administer ed, entered into emr, scored and discussed, time greater than 7.5 minutes Benign ess ential hypertension 3867294 I10 Blood pressure at goallabs reviewedno changes Osteoarthritis 133374888 M19.90 right kneehas replacemen t scheduled for naging to be active with pain now, but walking lessNaprox en PRN, avoiding twice daily dosing and trying to to take some days off Hypothyroidism 76607361 E03.9 stableannu al TSH Mixed hyperlipidemia 267 637775 E78.2 near goalcontin ue statindiet education today Hyperlipidemia 89293320 E78.5 LDL not at goal for diabetesst atin was increasedf /u labs 5 months Essential hypertension 39529649 I10 not at goal today goal < 140/90lowe r today than usualcould be due to terazosinn ot sx Diabetes mellitus 343375 09 E11.9 slightly above goal Atrial fibrillation [address] Vázquez rhad ablation and continues to have intermitte nt sx- rare now Benign pro static hyperplasia with outflow obstruction 554531503 N40.1 ongoing sxbetter but some nights worse than othersstil l on low dose of terazosinw ill increase to five mg at HS Overweight 659273344 E66 .3 noted small gainsome LE edema today, dependentw ill followgoal working on DM mgmthealth y diet reviewed [id number] Samra Farooq NP , [facility], [address] [place] [address] 11/27/2018 10:19:36 11/27/2018 11:09:14 Preoperative cardiovascular examination 889761078 Z01.810 cleared for TKR. Osteoarthr itis of knee 527778876 M17.11 per ortho Paroxysmal atrial fibrillation 941388574 I48.0 in a fib today - paroxysmal -=should not interfere with surgery unless rapid a fib. Will need post op anticoagul ation per your protocol. We have cardiac clearance from Dr Rodríguez . Diabetes mellitus 646980 09 E11.9 stable [id number] ALVINA Arambula , [facility], [address] [place] [address] 12/30/2018 14:27:23 12/31/2018 13:36:01 Irregular heart rate 117601356 R00.8 EKG done & reviewed by HS. Pt. sent to [facility] ED. [id number] Tuan De Anda MD FP, [facility], [address] [place] [address] 01/07/2019 12:03:49 01/07/2019 12:42:06 Diabetes mellitus 47178778 E11.9 were high in hospitalba ck down into 110-120 range Atrial fibrillation [address] Vázquez rand Dr Will jacobo to schedule ablationno t sxirregula r/rate controlled today Constipation 48163712 K5 9.00 with oxycodone use and decreased mobility after knee replacemen tboosting fiber and fluidsusin g MOM and sennaadvis ed to keep regular, don't get bound up, goal daily mvmt w/o strainingm edication to achieve goalsadd colace and /or miralax Essential hypertension 03029457 I10 at goallowerr ecent hypotensio n with afibnot sx History of right total knee replacement 4669907820 641678 Z96.651 progressin g as expectedus ing oxycodone and tylenol for painfeels he still has painnot bad at nightdoesn 't like SE of oxy (constipat ion and tired and a bit forgetful/ confused)a dvised to try 1/2 dose oxy, limit as abletake tylenol three times a dayf/u with ortho as directed [id number] Kathy May MD , [facility], [address] [place] [address] 02/05/2019 14:59:14 02/06/2019 11:46:37 Essential hypertension 64858354 I10 in rangecan be higher at homefollow ed also by cardiology Atrial fibrillation 4943 6004 I48.91 and fluttersch eduling ablation for Aprilnot sxchecking pulsescurr ently on amiodarone 200 mg daily Diabetes mellitus 717244 09 E11.9 A1C near goalweight down with poor appetite after surgerywou ld like to keep current meds/planw atching dietagrees doesn't need to gain weighthopi ng to resume exercise routine soonokay to go to gym, for knee rehab, keep heart rate under 100 at this time until further cardiology clearancen o sx uuwsP2S in 3 monthsf/u May 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, [address] [place] [address] 03/31/2019 10:10:26 03/31/2019 10:33:36 Essential hypertension 84874034 I10 in rangeat goal< 130/80 Diabetes mellitus 459846 09 E11.9 A1C near goal7.1 stable meds/diete xercise increasing mrhkhZ1T and f/u at [facility] Hyperlipidemia 98542089 E78.5 ongoing monitoring f/u [facility] Atrial fibrillation 4943 6004 I48.91 improved post ablationf/ u April with cardiology , likely med changes then Lesion of skin of face 6249113540 06 L98.9 severy red raised lesionssig sun exposure, golfsruddy complexion referral derm eval and tx History of right total knee replacement 0178721027 479400 Z96.651 doing wellat goals per Dr Tony ashby ongoingusi ng some compressio nstill doing PTworking up to playing golfnot using pain medication s [id number] Kathy May MD , [facility], [address] [place] [address] 10/01/2019 13:53:00 10/01/2019 14:34:48 Adult health examination 238975836 Z00.00 see Risk Assessment and Lifestyle Change Counseling section above Counseling 620572391 Z71 .9 Depression screening 171 646779 Z13.89 depression screening tool administer ed, entered into emr, scored and discussed, time greater than 7.5 minutes Hypothyroidism 26199261 E03.9 stableannu al TSH Benign pro static hyperplasia with outflow obstruction 179104136 N40.1 ongoing sxbetter with terazosin Diabetes mellitus 598109 09 E11.9 A1C near goal73 stable meds/dietc ontinue curent plan Essential hypertension 69686143 I10 in rangeat goal< 130/80 Hyperlipidemia 35784427 E78.5 ongoing monitoring close to goalon statinwill increase to 80 mg Atrial fibrillation 4943 6004 I48.91 having about weekly runs with sx afterwards in afib todayworki ng with cardiology rate controlled meeting about future ablation Insomnia 115733097 G47.0 0 newer issue for himtrackin g with fit bitnotes 7 hours most nights, 7.5but often in bed longerhard er to fall asleep at nightdiscu ssed possible changescon tacking stitch remover less coffee in morningcon tacking stitch remover no tv or screen two hours before bedget up if not falling asleep, quiet activitygo to bed and get up 8 hours later, no matter whatconsid er melatoninf /u as needed [id number] Nilesh Llanes MD FP, 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 [address] [place] [address] 03/16/2020 09:55:13 03/16/2020 14:36:54 Pain of right hip joint 5801422171 41304 M25.551 74 year old male with findings [...] Include: Therapeuti c exercise and manual therapy [id number] Nagi Whitman , HEATHER Physical Therapy, [facility] [address] [place] [address] 03/23/2020 10:57:39 03/24/2020 08:05:38 Pain of right hip joint 0344393564 23127 5.551 74 year old male with findings [...] Include: Therapeuti c exercise and manual therapy [id number] Pepe Boyd MD Sports Medicine, [facility] [address] [place] [address] 03/24/2020 08:16:58 03/25/2020 12:00:38 Pain of hip region 95984385 M25.551 Rubens is a 74 yo male [...] we have an appointmen t for him. [id number] Pepe Boyd MD Sports Medicine, [facility] [address] [place] [address] 03/29/2020 14:05:50 04/11/2020 11:41:26 Pain of hip region 09236321 M25.551 Rubens is a 74 yo male [...] with me as needed for further care. [id number] Nagi Whitman , PT Physical Therapy, [facility] [address] [place] [address] 04/06/2020 12:01:53 04/06/2020 16:28:38 Pain of right hip joint 7164493286 18442 M25.551 74 year old male with findings [...] Include: Therapeuti c exercise and manual therapy [id number] Nagi Whitman , PT Physical Therapy, [facility] [address] [place] [address] 04/13/2020 11:33:27 04/13/2020 12:51:03 Pain of right hip joint 1952128855 42543 M25.551 74 year old male with findings [...] Include: Therapeuti c exercise and manual therapy [id number] Nilesh Llanes MD , [facility], [address] [place] [address] 04/15/2020 09:27:50 04/19/2020 12:26:45 Atrial fibrillation 24363617 I48.91 still has sx at timeson CPAP to tx apnea and to have ablation scheduled, Dr Nabeel rae Benign pro static hyperplasia with outflow obstruction 941678002 N40.1 stabletera zosin tx Diabetes mellitus 873642 09 E11.9 A1C near goal7.7 stable meds/diets ome SE with metformin, go back to XL formulatio nexercise limited due to hip pain, working on Ynvisible blood sugarsno pclpQ2K May Essential hypertension 37734225 I10 in rangeat goal< 130/80on home checksnot sxno changes Hyperlipidemia 15467112 E78.5 high dose statinannu al labs Hypothyroidism 62870977 E03.9 stableannu al TSH Pain of ri ght hip joint 5750070507 [address] De Santiago in [facility] PT/HEP [id number] Nagi Whitman , PT Physical Therapy, [address] [address] 04/20/2020 11:38:03 04/20/2020 13:11:44 Pain of right hip joint 4651995798 57052 M25.551 74 year old male with findings [...] Include: Therapeuti c exercise and manual therapy [id number] Nagi Whitman , PT Physical Therapy, [address] [address] 04/27/2020 11:34:55 04/28/2020 08:29:37 Pain of right hip joint 5852879984 00620 M25.551 74 year old male with findings [...] Include: Therapeuti c exercise and manual therapy [id number] Nagi Whitman , PT Physical Therapy, [address] [address] 05/13/2020 13:00:37 05/13/2020 13:34:49 Pain of right hip joint 7387652929 13809 M25.551 74 year old male with findings [...] Include: Therapeuti c exercise and manual therapy [id number] Nagi Whitman , PT Physical Therapy, [address] [address] 05/25/2020 13:31:31 05/30/2020 09:16:43 Pain of right hip joint 9205052936 86396 M25.551 74 year old male with findings [...] Include: Therapeuti c exercise and manual therapy [id number] Nagi Whitman , [facility] Physical Therapy, [address] [address] 06/07/2020 09:33:48 06/07/2020 13:34:28 Pain of right hip joint 5420107533 89940 M25.551 74 year old male with findings [...] Include: Therapeuti c exercise and manual therapy [id number] Nagi Whitman , [facility] Physical Therapy, [address] [address] 06/10/2020 15:31:57 06/13/2020 11:53:09 Pain of right hip joint 0334142889 44792 M25.551 74 year old male with findings [...] also has a goal of returning to [employer] without pain or limitation . We will [...] Include: Therapeuti c exercise and manual therapy [id number] Pepe Boyd MD Sports Medicine, [address] [address] 06/14/2020 07:41:21 06/15/2020 14:44:19 Pain of hip region 65887245 M25.551 Rubens is a 74-year-ol d male [...] injections which would require referral to a dispute specialist by his primary care doctor. I am of course happy to see Rubens back on an as-needed basis for further care. Low back pain 966008692 M54.5 [id number] Nagi Whitman , PT Physical Therapy, [address] [address] 06/22/2020 13:03:11 06/23/2020 17:02:44 Pain of right hip joint 7604698082 18258 M25.551 74 year old male with findings [...] Include: Therapeuti c exercise and manual therapy [id number] Nagi Whitman , PT Physical Therapy, [address] [address] 07/13/2020 11:56:38 07/14/2020 14:33:44 Pain of right hip joint 2524159239 31462 M25.551 74 year old male with findings [...] Include: Therapeuti c exercise and manual therapy [id number] Nagi Whitman , PT Physical Therapy, [address] [address] 07/22/2020 15:01:44 07/25/2020 07:58:38 Pain of right hip joint 4167566239 24371 M25.551 74 year old male with findings [...] Include: Therapeuti c exercise and manual therapy [id number] Nilesh Llanes MD , [facility], [address] [place] [address] 09/08/2020 13:14:44 09/08/2020 16:12:02 Active or passive immunization 718460570 Z23 [id number] Nagi Whitman , HE[facility] Physical Therapy, [facility] [address] [place] [address] 09/29/2020 07:30:51 10/03/2020 08:18:53 Right side sciatica 0110816845 45909 M54.31 75 year old male with findings [...] Include: Therapeuti c exercise and manual therapy [id number] Nagi Whitman , HEATHER Physical Therapy, [facility] [address] [place] [address] 10/06/2020 08:32:29 10/06/2020 11:03:15 Right side sciatica 8857048219 39681 M54.31 75 year old male with findings [...] Include: Therapeuti c exercise and manual therapy [id number] Kathy May MD , [facility], [address] [place] [address] 10/07/2020 09:02:11 10/07/2020 16:45:07 Adult health examination 871294999 Z00.00 see Risk Assessment and Lifestyle Change Counseling section above Counseling 964222550 Z71 .9 including cardiovasc ular risk reduction counseling Depression screening 171 545457 Z13.89 depression screening tool administer ed, entered into emr, scored and discussed, time greater than 7.5 minutes Screening for alcohol abuse 634884225 Z13.39 Atrial fibrillation 4943 6004 I48.91 has had tx and [facility] far with resultssta ble on xarelto Benign pro static hyperplasia with outflow obstruction 620358654 N40.1 stabletera zosin tx Diabetes mellitus 377310 09 E11.9 A1C near goal7.4 in May stable meds/dietd oing wellless exerciseho ping to change this soon with tx back painblood sugars in good range on home checks 110-130 sqithl7k due in Novemberwi l schedule Essential hypertension 13294932 I10 goal< 130/80on home checks usually at goalmild elev todaynot sxno changeswil l send more readings via portal Hyperlipidemia 18445058 E78.5 high dose statinannu al labsat goal Hypothyroidism 87979306 E03.9 stableannu al TSH Degenerati on of lumbar intervertebral disc 72959972 M51.36 Dr Frank ion therapy workingwil followgunnison valley hospitali josh for ongoign improvemen ts and return to more exercise [id number] Nagi Whitman , PT Physical Therapy, [facility] [address] [place] [address] 10/13/2020 08:33:24 10/13/2020 12:31:36 Right side sciatica 5933327883 77330 M54.31 75 year old male with findings [...] Include: Therapeuti c exercise and manual therapy [id number] Nagi Whitman , PT Physical Therapy, [address] [address] 11/04/2020 14:07:23 11/04/2020 14:34:03 Right side sciatica 3909064168 52705 M54.31 75 year old male with findings [...] Include: Therapeuti c exercise and manual therapy [id number] Nagi Whitman , PT Physical Therapy, [facility] [address] [place] [address] 11/23/2020 11:34:10 11/23/2020 13:05:55 Right side sciatica [id number] 57827 M54.31 75 year old male with findings [...] Include: Therapeuti c exercise and manual therapy [id number] Kathy May MD , [facility], [address]ICE [address] [place] [address] 03/28/2021 09:54:19 03/29/2021 10:22:46 Essential hypertension 32345907 I10 goal < 130/80 has not checked today at home has been at goal not sx no changes today fu at wellness visit Diabetes mellitus 090798 09 E11.9 A1C near goal 7.9 recheck April and Sep/Oct stable meds/diet 120-130 range at home when he checks stable diet limited exercise with back pain right now hopes to improve stable meds Degenerati on of lumbar intervertebral disc 78786069 M51.36 Dr Corley injection tx doing better now but has been slow still resting PT hoping in coming weeks will refer as needed Atrial fibrillation 4943 6004 I48.91 ablation/C PAP tx not sx Hypothyroidism 88871781 E03.9 mildly low TSH not sx recheck April Obstructiv e sleep apnea syndrome 30295045 G47.33 dx and tx doing well managing CPAP 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 868923436 E11.3299 followed by ophtho no vision changes [id number] Nagi Whitman , PT Physical Therapy, [address] [address] 06/06/2021 12:54:12 06/06/2021 17:12:14 Lumbar radiculopathy 434606838 M54.16 75 year old male with signs [...] Include: therapeuti c exercise and manual therapy [id number] Nagi Whitman , [facility], [address] [address] 06/22/2021 14:56:21 06/26/2021 07:42:59 Lumbar radiculopathy 111087338 M54.16 75 year old male with signs [...] Include: therapeuti c exercise and manual therapy [id number] Nagi Whitman , PT Physical Therapy, [address] [address] 08/01/2021 10:54:12 08/01/2021 13:12:10 Lumbar radiculopathy 679117147 M54.16 75 year old male with signs [...] Include: therapeuti c exercise and manual therapy [id number] Kathy May MD , [facility], [address]ICE [address] [place] [address] 08/11/2021 09:42:13 08/14/2021 09:56:39 Hypothyroidism 08869634 E03.9 TSH in rangestabl e with current dosecontin ue 125 mcg Atrial fibrillation 4943 6004 I48.91 ablation/C PAP txRRR todayon NOACnot sx Essential hypertension 21144515 I10 goal < 130/80at goalnot sxno changesBMP reviewed Diabetes mellitus 029596 09 E11.9 A1C at goal adjusted for age < 8 7.5gets good readings on blood sugar at homestable w mgmtmild peripheral neuropathy signs Obstructiv e sleep apnea syndrome 98749247 G47.33 dx and tx doing well managing CPAP Hyperlipidemia 86469228 E78.5 high dose statinannu al labsat goal Peripheral neuropathy due to type 2 diabetes mellitus 1968119452 107 E11.42 mild signs on examexcell ent foot care and integrity [id number] Ann-Marie Rodriguez , [facility], [address] [place] [address] 09/06/2021 09:50:59 09/07/2021 14:35:02 Active or passive immunization 074530598 Z23 [id number] Nagi Whitman , PT Physical Therapy, [facility] [address] [place] [address] 09/07/2021 10:28:18 09/07/2021 15:04:57 Lumbar radiculopathy 306394222 M54.16 Patient Goals: Be able to walk [...] exercise program to address his remaining deficits. [id number] Kathy May MD , [facility], [address] [place] [address] 11/09/2021 10:02:48 11/09/2021 11:00:32 Adult health examination 233771178 Z00.00 see Risk Assessment and Lifestyle Change Counseling section above Counseling 938623150 Z71 .9 including cardiovasc ular risk reduction counseling Depression screening 171 280870 Z13.31 depression screening tool administer ed, entered into emr, scored and discussed, time greater than 7.5 minutes Screening for alcohol abuse 277796275 Z13.39 Atrial fibrillation 4943 6004 I48.91 ablation/C PAP txRRR todayon NOACnot sx Benign pro static hyperplasia with outflow obstruction 713807302 N40.1 stabletera zosin tx Degenerati on of lumbar intervertebral disc 79690016 M51.36 Dr Corley injection txsx get better and worsenotes overall progressio nstaying active as ablegoing to try recumbant stationary bike Diabetes mellitus 804216 09 E11.9 A1C at goal adjusted for age < 8 7.5gets good readings on blood sugar at homestable w mgmtmild peripheral neuropathy signs Hyperlipidemia 67510573 E78.5 high dose statinannu al labsat goal 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 592515293 E11.3299 followed by ophtho no vision changes Atrial fibrillation 4943 6004 I48.91 on NOACnot sxstablera te control Degenerati on of lumbar intervertebral disc 82626736 M51.36 Dr Corley injection txrecent steroid injection 2 weeks agostaying active Diabetes mellitus 770858 09 E11.9 A1C at goal adjusted for age < 8 7.3encoura ged to check sugars for sx?ing lower bp or sugars causing sxadvised to tx and sx lows even if his blood sugar meter not on hand Hypothyroidism 05663014 E03.9 TSH in rangelower in Nov, normal Marchrepea t next labs for stability Benign pro static hyperplasia with outflow obstruction 098348345 N40.1 noting some increase nighttime sx but intermitte ntmonitor for nowterazos [place] [id number] Kathy May MD , [facility], [address] [place] [address] 06/13/2022 15:51:26 06/14/2022 10:53:37 Essential hypertension 06565518 I10 goal < 130/80near ly at goal here todaymostl y at goal at home no longer lightheade d on less amlodipine will leave on lower dose and f/u at wellness Benign pro static hyperplasia with outflow obstruction 380182583 N40.1 ongoing increased nocturiawo uld like it to be lesson terazosinu rology referral for further considerat ion tx options [id number] Kathy May MD , [facility], [address] [place] [address] 08/28/2022 08:57:43 08/28/2022 10:18:54 Stiff neck 272458710 M43.6 noted on examsx are more acute with shoulder painsome radicular sx on right armPT for tx to startadvis ed gentle ROMcontinu e tylenol Pain of ri ght shoulder joint 2148134399 8673204 M25.511 check labs for PMR/lymemo re acute onset limitation right shoulderno manny left on exampain right armno injury or new activitywo rse in AMcannot take nsaidstaki ng tylenolsta rt PTtx PMR if labs dx [id number] Kathy May MD , [facility], [address] [place] [address] 09/12/2022 08:34:44 09/12/2022 13:52:49 Lyme disease 12866895 A69.20 positive lyme, sxwas tx for PMR working dxhe had pain again in shoulder when missed a dose of prednisone we will try to wean him off prednisone he is tolerating doxyhe has no other sx or complaints repeat labs todayf/u three weeks Atrial fibrillation 4943 6004 I48.91 on NOACnot sxstablera te control Hypothyroidism 88953445 E03.9 TSH was low in crea sed levorepeat TSHno sx (other than as related above) Essential hypertension 81969221 I10 goal < 130/80at goal on recheck [id number] Randy Wilder MD , [facility], [address] [place] [address] 09/17/2022 17:13:53 10/25/2022 13:54:07 COVID-19 032001257 U07.1 Tested positive on Saturday09/14/22Sx improving, currently mild Exposure t o SARS-CoV-2 122665129 Z20.828 Will consider paxlovid but on prednisone and other meds that may interactWi ll discuss with PCP and f/u with pt tomorrow (Saturday)P t will fu if sx worsen - pt & in agreement w plan. [id number] Kathy May MD , [facility], [address] [place] [address] 10/03/2022 09:30:38 10/03/2022 16:10:18 Lyme disease 91695064 A69.20 treated 28 dayssee notes below re joint painsno other sx Pain of mu ltiple joints 87154871 M25.50 more right UE, wrist to shoulderbe tter on prednisone at higher doselittle relief on 5 mg, some at 7.5, much less to no pain on 10 mghas rheum appt Nov 07will increase pred to 10 mg pending this apptrepeat labswas thought to be PMR, then dx lyme and had COVID in interimunc lear why still pain after lyme tx Diabetes mellitus 090401 09 E11.9 A1C at goal adjusted for age < 8 7.9 has had higher readings on prednisone and now lowerhe is watching dietwishes to be more active, which he can do if he keeps with prednisone for pain mgmtlabs reviewedon ly urine microalb due before wellnesswi ll do sooner as he is going to lab re abovecan cancel appt for lab in [id number] Kathy May MD , [facility], [address] [place] [address] 10/31/2022 10:37:28 10/31/2022 15:03:55 Diabetes mellitus 55192410 E11.9 A1C at 9.6, NOT at goal adjusted for age < 8 increase glimepirid e to 8 mg has had higher readings on prednisone he is watching diet Degenerati on of lumbar intervertebral disc 11228396 M51.36 appt with surgeon on 11/13had gotten rx for diclofenac but advised not to use with prednisone Essential hypertension 07706249 I10 goal is < 130/80, NOT at goal cupze019/6 4 in office, similar readings at home since stopping amlodipine will not add another agent or increase lisinopril at this time given upcoming apptswill follow up after appointmen ts this monthPotas sium decreased from 5.9 to 5.2 with discontinu ation of CCB Pain of mu ltiple joints 75908819 M25.50 more right UE, wrist to shoulder, hips, kneesbette r on prednisone at higher dose, recently exacerbate d with putting up xmas treedecrea sed to 7.5 mg since last apptadvise d to not increase dose d/t elevated A1chas rheum appt Nov [id number] Kathy May MD , [facility], [address] [place] [address] 11/13/2022 11:36:00 11/13/2022 12:07:51 Adult health examination 895741353 Z00.00 see Risk Assessment and Lifestyle Change Counseling section above Counseling 997627249 Z71 .9 including cardiovasc ular risk reduction counseling Depression screening 171 669449 Z13.31 depression screening tool administer ed, entered into emr, scored and discussed, time greater than 7.5 minutes Screening for alcohol abuse 088825290 Z13.39 Polymyalgi a rheumatica 15036619 M35.3 saw rheumfelt correct w dxon steroids but mildly sx stillgiven higher sugars thinking about moving to methotrexa te txhas f/u mid Novemberrec ommended PTpt likely to do this in November and wants [facility], referral placed for easereassu maryam todaygoal to get off steroids and mgmt sx Degenerati on of lumbar intervertebral disc 75210423 M51.36 appt with surgeon on 11/13ink ing about possible procedure to release pressurefi nds that radiating back pain does affect his goal of walking 3 miles daily Diabetes mellitus 218650 09 E11.9 A1C at 9.6, NOT at goal adjusted for age < 8 increased glimepirid e to 8 mg this monththis is secondary to steroid txgoals right now to find alt mgmt to PMR and come off steroidsco ntinue healthy dietexerci se as toleratedc ontinue medscheck A1C in 3 months Essential hypertension 16765528 I10 close to [id number]/6 0sno changes at this timef/u 3 months Hypothyroidism 88634130 E03.9 TSH in range Octcontinu e currentrec heck for stability 3 mo Atrial fibrillation 4943 6004 I48.91 on NOACnot sxstablera te control Benign pro static hyperplasia with outflow obstruction 048137602 N40.1 feels sx well managed at this time [id number] Nagi Whitman , PT Physical Therapy, [facility] [address] [place] [address] 12/13/2022 16:07:43 12/14/2022 08:12:50 Pain of left shoulder joint 8855885356 1004845 M25.512 77 year old male with findings [...] active, passive and resisted motions of the shoulder and wrists. 2. Demonstrat e sufficient muscular endurance to meet functional demands. Treatment Plan: Patient to return for 8 visits over 12 weeks. We expect significan t change in pain, impairment and function in this time frame. Treatment to Include: Therapeuti c exercise and manual therapy Pain of ri ght shoulder joint 1373895089 7695326 M25.821 [id number] Kathy May MD , 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 PMR or RAon hydroxychl oroquine and pred now with goal to wean prednisone after surgery [id number] Nagi Whitman , PT Physical Therapy, [address] [address] 12/20/2022 16:26:59 12/21/2022 09:35:21 Pain of left shoulder joint 0093483263 0687142 M25.512 77 year old male with findings [...] active, passive and resisted motions of the shoulder and wrists. 2. Demonstrat e sufficient muscular endurance to meet functional demands. Treatment Plan: Patient to return for 8 visits over 12 weeks. We expect significan t change in pain, impairment and function in this time frame. Treatment to Include: Therapeuti c exercise and manual therapy Pain of ri ght shoulder joint 0012261291 9763360 M25.932 [id number] Nagi Whitman , PT Physical Therapy, [address] [address] 12/27/2022 09:49:08 12/27/2022 10:41:50 Pain of left shoulder joint 4542576922 9008210 M25.512 77 year old male with findings [...] active, passive and resisted motions of the shoulder and wrists. 2. Demonstrat e sufficient muscular endurance to meet functional demands. Treatment Plan: Patient to return for 8 visits over 12 weeks. We expect significan t change in pain, impairment and function in this time frame. Treatment to Include: Therapeuti c exercise and manual therapy Pain of ri ght shoulder joint 5165309219 4662201 M25.646 [id number] Kathy May MD , [facility], [address] [place] [address] 02/13/2023 09:33:22 02/13/2023 10:38:45 Diabetes mellitus 14799597 E11.9 A1C up to 10, NOT at [...] follows Degenerati on of lumbar intervertebral disc 72784791 M51.[address] Julian and is doing wellless pain Polymyalgi a rheumatica 40435178 M35.3 working with rheumon hydroxychl oroquine and weaning prednisone some sx recurringh e has f/u in three mowill see how he does on prednisone weannoting that likely source of liver enzymes up is from hydroxychl oroquinewi ll update rhuem after labs Elevated l evel of transaminase and lactic acid dehydrogenase 186441759 R74.01 w/u below though suspect drug SE as noted abovef/u with rheum after labs Hypothyroidism 14541864 E03.9 TSH up to 5continue currentrec heck for stability 3 mo [id number] Nagi Whitman , PT Physical Therapy, [address] [address] 02/12/2023 14:53:43 02/13/2023 09:10:32 Pain of right shoulder joint 9425293456 8324543 M25.511 Muscle weakness 07289589 M62.81 [id number] Nagi Whitman , PT Physical Therapy, [address] [address] 02/19/2023 16:17:42 02/20/2023 08:46:59 Pain of right shoulder joint 0060831695 2451188 M25.511 77 year old male with findings [...] Demonstrat e active ankle dorsiflexi on to 10 and active plantar flexion through full available [...] function in this time frame. Muscle weakness 33907173 M62.81 [id number] Nagi Whitman , PT Physical Therapy, [address] [address] 03/05/2023 12:19:23 03/05/2023 13:17:48 Pain of right shoulder joint 6579936573 5334707 M25.511 77 year old male with findings [...] Demonstrat e active ankle dorsiflexi on to 10 and active plantar flexion through full available [...] function in this time frame. Muscle weakness 05857952 M62.81 [id number] Kathy May MD , [facility], [address] [place] [address] 03/20/2023 08:39:34 03/20/2023 12:19:32 Diabetes mellitus 39566407 E11.9 blood sugars are coming down on prednisone ranging 130-190die t stable, exercising regularly discussed other med options agree no changes today given improvingf /u labs 2 months Essential hypertension 72499240 I10 at goal< 130/80 Psoriasis 6764459 L40.9 notes some eruptions on right legconsist ent with psoriasis, not pruriticno te this is possible SE on Hydroxychl oroquinehe will treat topically and monitor Polymyalgi a rheumatica 86211147 M35.3 following with rheumatolo gyweaning prednisone taking hydroxychl oroquinemo nitoring Degenerati on of lumbar intervertebral disc 44612798 M51.[address] Eliel Escobar ght sided pain resolvedno w more left sided sxseeing PSS tomorrow [id number] Nagi Whitman , PT Physical Therapy, [address] [address] 03/14/2023 09:24:51 03/14/2023 10:27:45 Pain of right shoulder joint 3677839473 9733600 M25.511 77 year old male with findings [...] Demonstrat e active ankle dorsiflexi on to 10 and active plantar flexion through full available [...] function in this time frame. Muscle weakness 57843430 M62.81 [id number] Nagi Whitman , PT Physical Therapy, [address] [address] 03/26/2023 14:19:32 03/26/2023 15:04:23 Pain of right shoulder joint 2616586654 7030730 M25.511 77 year old male with findings [...] Demonstrat e active ankle dorsiflexi on to 10 and active plantar flexion through full available [...] function in this time frame. Muscle weakness 21023730 M62.81 [id number] Nagi Whitman , PT Physical Therapy, [facility] [address] [place] [address] 04/02/2023 10:49:12 04/02/2023 11:41:40 Pain of right shoulder joint 9874613914 8045591 M25.511 77 year old male with findings [...] Demonstrat e active ankle dorsiflexi on to 10 and active plantar flexion through full available [...] function in this time frame. Muscle weakness 20627654 M62.81 [id number] Nagi Whitman , PT Physical Therapy, [facility] [address] [place] [address] 04/09/2023 13:34:52 04/09/2023 14:46:45 Pain of right shoulder joint 6525070847 9841994 M25.511 77 year old male with findings [...] Demonstrat e active ankle dorsiflexi on to 10 and active plantar flexion through full available [...] function in this time frame. Muscle weakness 27827858 M62.81 [id number] Nagi Whitman , PT Physical Therapy, [facility] [address] [place] [address] 04/30/2023 16:10:40 05/01/2023 11:19:35 Pain of right shoulder joint 1879659259 3047576 M25.511 77 year old male with findings [...] Demonstrat e active ankle dorsiflexi on to 10 and active plantar flexion through full available [...] function in this time frame. Muscle weakness 06246135 M62.81 [id number] Kathy May MD , [facility], [address] [place] [address] 06/18/2023 09:37:08 06/18/2023 10:45:39 Cough 77456193 R05.9 occ use inhaler with sx illness Diabetes mellitus 268022 09 E11.9 blood sugars are coming downnotes much lower fastingdoe sn't like metformin, GI SE and in current arthritic pain setting this is hardtrial just one eocpdX4C in 1-2 months Essential hypertension 94755380 I10 at goal< 130/80lowe r today, not sxcardiolo gy mgmt as well Hypothyroidism 09260841 E03.9 in range April Rheumatoid arthritis 698 11287 M06.9 working dson hydroxycho lorquine? effecthas pain, less than previoustr debbie to come off prednisone on 2mg daily now Psoriasis 1890043 L40.9 using topicalssu spect SE exacerbati on from hydroxycho lorquinewa iting for rheum appt Atrial fibrillation 4943 6004 I48.91 on NOACnot sxstablera te controlcar diology follows Degenerati on of lumbar intervertebral disc 70627567 M51.36 occ flares with painhas visit Dr Corley this Jul [id number] Nagi Whitman , PT Physical Therapy, [address] [address] 06/18/2023 08:48:20 06/18/2023 13:53:20 Pain of right shoulder joint 1299428700 8069017 M25.511 Patient Goals:Be able to reach, push, [...] Demonstrat e active ankle dorsiflexi on to 10 and active plantar flexion through full available [...] reached his balance exercise goals. Muscle weakness 13458539 M62.81 [id number] Kathy May MD , 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 694423653 E11.3299 followed by ophtho no vision changeswor norman on DM controlsee below Diabetes mellitus 539118 09 E11.9 A1C was high, > 9blood sugars coming down in past three weeks off prednisone he is willing to try 1000 mg daily dose metformin again, had some GI effects when taking on prednisone if he has SE can try splitting dose or stopcontin ue checking sugarswalk after mealsf/u at wellness Posterior rhinorrhea 758 51559 R09.82 notes sx for about six monthnight cough bothersome feels drip, mostly on left sidestart with trial nasal antihistam ine [id number] Kathy May MD , [facility], [address] [place] [address] 11/14/2023 09:57:53 11/14/2023 13:44:51 Adult health examination 329243901 Z00.00 see Risk Assessment and Lifestyle Change Counseling section above Depression screening 171 242824 Z13.31 depression screening tool administer ed Screening for alcohol abuse 606930483 Z13.39 Alcohol use screening tool administer ed Posterior rhinorrhea 758 30662 R09.82 sx are controlled when he uses azelastine enc to continue use as neededmay stop seasonally if not sx Bilateral carpal tunnel syndrome 5923821271 9943193 G56.03 new dxworking with rheumatolo trinh for nowhome exercisesr ecommend splintingh as f/u with specialist at [facility] for further tx mgmt per referral of Dr Coronado Atrial fibrillation 4943 6004 I48.91 on NOACnot sxstablera te controlcar diology follows Degenerati on of lumbar intervertebral disc 79028994 M51.36 chronic painwonder ing how much RA drugs will helpcan f/u with Dr Corley for other txwill review with rheumadvis ed to let his sx guide him Diabetes mellitus 944649 09 E11.9 A1Cat goal 7.5range at home 100-140 oftendoing wellnote proteinuri a, will continue tracking annually and watch renal functionco ntinue current mgmt Essential hypertension 95378641 I10 not at goal< 130/80has been good at other apptssaw cardiolgy last month, [facility] reviewedno changesche ck at homecall with reportf/u 6 mo or sooner if not at goal Hypothyroidism 87493031 E03.9 in rangenot sx Hyperlipidemia 68257650 E78.5 high dose statinannu al labsat goal 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, [address] [place] [address] 04/29/2024 12:00:39 04/29/2024 12:49:53 Diabetes mellitus 89172599 E11.9 A1Cat goal 7.2attribu ami good control to good diet and regular exercisebi kes six miles most days, takes walksf/u six mono med chagnes Essential hypertension 96201816 I10 close to goal on recheckgoa l < 130/80noti ng at home can be up to 140 often, like every 3-4th checkwill increase lisinopril to 30 mghe will keep checkingf/ u if not improving f/u 6 mo at wellness routine Hypothyroidism 26464887 E03.9 in rangenot sx Rheumatoid arthritis [address] Webb owing and txunder control Diabetic p eripheral neuropathy 847544369 E11.40 chronichad confirmato ry neurologic testing w Dr Gonzalez with recent w/u for muscle wasting of hands Spinal melodie nosis in cervical region [id number] M48.02 severe C3-4 and C5-6noting sx in UE and LEmuscle wasting, balance issueshas PT referralne eds laminectom y, neurosurge on at [facility] wants to schedulept wants to see Dr Julian again, has appt in June, sent records and hoping to talk w him sooner. [id number] Nagi Whitman , PT Physical Therapy, [address] [address] 06/09/2024 11:22:41 06/11/2024 10:17:55 Spinal stenosis in cervical region [id number] M48.02 78 year old male with findings [...] after surgery if indicated by his surgeon. [id number] Nagi Davenport EDD Physical Therapy, [address] [address] 08/18/2024 09:55:52 08/20/2024 14:48:00 Cervical spondylosis [id number] M47.812 79 year old male with findings [...] Include as appropriat e: therapeuti c exercise (13845), manual therapy (68087), therapeuti c activity (74544), gait training (49487), neuromuscu lar reeducatio n (79816), mechanical traction (48676) [id number] Nagi Davenport EDD Physical Therapy, [address] [address] 08/25/2024 10:29:19 08/28/2024 08:19:05 Cervical spondylosis [id number] M47.812 79 year old male with findings [...] Include as appropriat e: therapeuti c exercise (41377), manual therapy (94723), therapeuti c activity (09135), gait training (91503), neuromuscu lar reeducatio n (89920), mechanical traction (20835) [id number] Nagi Davenport EDD Physical Therapy, [address] [address] 08/27/2024 11:28:00 08/27/2024 13:48:52 Cervical spondylosis [id number] M47.812 79 year old male with findings [...] Include as appropriat e: therapeuti c exercise (39604), manual therapy (27974), therapeuti c activity (76748), gait training (45349), neuromuscu lar reeducatio n (68788), mechanical traction (49888) [id number] Nagi Davenport EDD Physical Therapy, [address] [address] 09/01/2024 09:55:46 09/01/2024 14:40:54 Cervical spondylosis [id number] 7.812 79 year old male with findings [...] Include as appropriat e: therapeuti c exercise (95569), manual therapy (01568), therapeuti c activity (73991), gait training (95662), neuromuscu lar reeducatio n (45586), mechanical traction (41515) [id number] Nagi Davenport EDD Physical Therapy, [address] [address] 09/03/2024 11:52:00 09/03/2024 15:21:32 Cervical spondylosis [id number] M47.812 79 year old male with findings [...] Include as appropriat e: therapeuti c exercise (16660), manual therapy (15615), therapeuti c activity (41137), gait training (74964), neuromuscu lar reeducatio n (39557), mechanical traction (34486) [id number] Nagi Davenport EDD Physical Therapy, [address] [address] 09/08/2024 10:24:31 09/08/2024 12:43:04 Cervical spondylosis [id number] M47.812 79 year old male with findings [...] Include as appropriat e: therapeuti c exercise (32741), manual therapy (27464), therapeuti c activity (25870), gait training (86576), neuromuscu lar reeducatio n (34177), mechanical traction (84101) [id number] Nagi Davenport EDD Physical Therapy, [address] [address] 09/15/2024 09:47:32 09/15/2024 13:15:54 Cervical spondylosis [id number] M47.812 79 year old male with findings [...] Include as appropriat e: therapeuti c exercise (58561), manual therapy (80059), therapeuti c activity (70864), gait training (08010), neuromuscu lar reeducatio n (91246), mechanical traction (30901) [id number] Nagi Davenport EDD Physical Therapy, [address] [address] 09/29/2024 09:50:42 09/29/2024 12:54:36 Cervical spondylosis [id number] M47.812 79 year old male with findings [...] Include as appropriat e: therapeuti c exercise (72800), manual therapy (35227), therapeuti c activity (04982), gait training (51413), neuromuscu lar reeducatio n (04340), mechanical traction (88208) [id number] KATIUSKA MCCLELLAND NP Physical Therapy, [address] [address] 10/15/2024 14:25:05 10/16/2024 12:15:46 Cervical spondylosis 564723223 M47.812 79 year old male with findings [...] Include as appropriat e: therapeuti c exercise (05163), manual therapy (26541), therapeuti c activity (94815), gait training (92800), neuromuscu lar reeducatio n (10798), mechanical traction (04613) [id number] KATIUSKA MCCLELLAND NP Physical Therapy, [address] [address] 11/05/2024 13:52:40 11/05/2024 14:57:03 Cervical spondylosis 512714539 M47.812 79 year old male with findings [...] Include as appropriat e: therapeuti c exercise (00935), manual therapy (31866), therapeuti c activity (46702), gait training (07262), neuromuscu lar reeducatio n (27666), mechanical traction (15101) [id number] Kathy May MD , [facility], [address] [place] [address] 12/02/2024 10:34:06 12/02/2024 11:09:45 Posterior rhinorrhea 03349116 R09.82 sx are controlled when he uses azelastine continuere fill today Atrial fibrillation 4943 6004 I48.91 on NOACnot sxstablera te controlcar diology visits and holter this spring Diabetes mellitus 997874 09 E11.9 A1Cat goal 6.7he is staying activeeati ng welltaking medication working w his neuropathy sx Essential hypertension 87852532 I10 elevated here todayat [facility] < 130/80no changes todayf/u with BP clinic in a monthcardi ology following as well Rheumatoid arthritis [address] Coronado left, will follow w Dr Harry woodruff changing from [facility] as no longer on free program and expensive, has enough until well controlled meeting Dr Ayala in December Bilateral hearing loss 86941119 H91.93 pt notes some issues, notes [facility] audiology apptear canals are clear Diabetic p eripheral neuropathy 577021686 E11.40 chroniccon firmed w EMG testingong oing issues w balancewor maisha w PTnormal DM foot exam Spinal melodie nosis in cervical region 19693426 M48.02 had four discs replacedsl ow recovery but feels he is improvedwo rking on regaining muscle and strenth in his hands [id number] KATIUSKA MCCLELLAND NP Physical Therapy, [facility] [address] [place] [address] 12/08/2024 09:54:51 12/10/2024 10:11:34 Cervical spondylosis 102000321 M47.812 79 year old male with findings [...] Without limitation s due to upper extremity zeacojxk84. We will continue to monitor this but [...] to manage this stadium stairs at the [facility] as a proxy for his balance and [...] Include as appropriat e: therapeuti c exercise (78205), manual therapy (93436), therapeuti c activity (22417), gait training (52989), neuromuscu lar reeducatio n (01369), mechanical traction (51000) [id number] KATIUSKA MCCLELLAND NP Physical Therapy, [address] [address] 12/22/2024 12:49:14 12/22/2024 15:31:46 Cervical spondylosis 106092003 M47.812 79 year old male with findings [...] Without limitation s due to upper extremity [id number]. We will continue to monitor this but [...] to manage this stadium stairs at the [facility] as a proxy for his balance and [...] Include as appropriat e: therapeuti c exercise (87786), manual therapy (20135), therapeuti c activity (56994), gait training (93440), neuromuscu lar reeducatio n (59092), mechanical traction (41249) [id number] Kathy May MD , [facility], [address] [place] [address] 01/01/2025 10:11:35 01/04/2025 12:11:24 Essential hypertension 40447745 I10 Improved but still above goal [id number] KATIUSKA MCCLELLAND NP Physical Therapy, [facility] [address] [place] [address] 01/05/2025 11:29:07 01/05/2025 12:14:23 Cervical spondylosis 917413631 M47.812 79 year old male with findings [...] Without limitation s due to upper extremity uwittdan91. We will continue to monitor this but [...] to manage this stadium stairs at the [facility] as a proxy for his balance and [...] Include as appropriat e: therapeuti c exercise (44553), manual therapy (99022), therapeuti c activity (29061), gait training (98629), neuromuscu lar reeducatio n (78594), mechanical traction (95641) [id number] KATIUSKA MCCLELLAND NP Physical Therapy, [facility] [address] [place] [address] 02/02/2025 14:31:40 02/02/2025 15:44:43 Cervical spondylosis 466350061 M47.812 79 year old male with findings [...] Without limitation s due to upper extremity xmxjupti31. We will continue to monitor this but [...] to manage this stadium stairs at the [facility] as a proxy for his balance and [...] Include as appropriat e: therapeuti c exercise (97187), manual therapy (75417), therapeuti c activity (54751), gait training (37873), neuromuscu lar reeducatio n (16418), mechanical traction (42745) [id number] Kathy May MD , [facility], [address] [place] [address] 03/10/2025 15:50:02 03/10/2025 17:32:54 Adult health examination 798838743 Z00.00 see Risk Assessment and Lifestyle Change Counseling section above Depression screening 171 479041 Z13.31 depression screening tool administer ed Screening for alcohol abuse 954883352 Z13.39 Alcohol use screening tool administer ed Atrial fibrillation 4943 6004 I48.91 on NOACnot sxstablera te controlhad holter and echoecho stableresu lts holter pending Benign pro static hyperplasia with outflow obstruction 956319579 N40.1 feels sx well managed at this time Degenerati on of lumbar intervertebral disc 21567510 M51.360 he is having very mild sxfeels positive to have had reparative surgeryno radicular sx Diabetes mellitus 986188 09 E11.9 A1C at goal < 8he is staying activeeati ng welltaking medication working w his neuropathy sx Diabetic p eripheral neuropathy 727224820 E11.40 chronicexc ellent foot caretakes balance precaution songoing work on this Essential hypertension 89304097 I10 goal < 130/80at goal here and homenot sxcan be higher at times at MD visitswill f/u six mo Hyperlipidemia 42568239 E78.5 high dose statinannu al labsat goal Hypothyroidism 75883723 E03.9 in rangestabl e 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 456206407 E11.3299 followed by ophtho up to date with eye careDM mgmt focusgood control Obstructiv e sleep apnea syndrome 07496760 G47.33 dx and tx doing well managing CPAPsaw sleep med for check upwill continue current POC Rheumatoid arthritis [address] Ayala, rheumconsi dering changing from Humira as no longer on free program and expensive, hasn't made change yetsx well managed Spinal melodie nosis in cervical region 58848292 M48.02 had four discs replaced Augusthas some premanent loss strength in hands but fully functional no paincomple manny OT [id number] KATIUSKA MCCLELLAND NP Physical Therapy, [facility] [address] [place] [address] 03/30/2025 12:25:44 04/01/2025 09:49:30 Cervical spondylosis 776302845 M47.812 Patient Goals:To be able to Push, pull, lift, reach and carry as well as grasp for ADLs and recreation Without limitation s due to upper extremity [id number] patient rates his grasp is approximat anna [...] None Recorded Advance Directives Directive Y: Payers Insurance Date Sequence Insurance Name Policy Number Policy Kulkarni Covered Member ID Kulkarni Member ID Guarantor Name 02/18/2022 2 [place] [id number] Maxim Amaral [id number] Maxim [place] 02/18/2022 2 [place] Maxim Amaral [id number] Maxim Bryan Cristin 03/29/2025 2 [place]LE[place]) [id number] Maxim Amaral [id number] Maxim [place] 02/18/2022 2 [place] [id number] Maxim Amaral [id number] Maxim [place]combe 02/18/2022 2 [place] Maxim Amaral [id number] Maxim [place]combe 02/18/2022 1 MEDICARE [place]: [facility] Maxim Amaral [id number] Maxim Amaral 03/29/2025 1 MEDICARE [place]: [facility] Maxim Amaral [id number] Maxim Amaral Notes Date Note Type [...] if developing these sx Wilma Darby LPN [facility] 01/01/2025 10:44:08 01/05/2025 text/html PT Initial [...] limitation in Walking/balance Nagi Whitman, PT [address] [place], [address], [facility] 01/05/2025 12:12:35 02/02/2025 text/html PT Initial Eval*Reported [...] limitation in Walking/balance Nagi Whitman, PT [address] [place], [address], [facility] 02/02/2025 15:07:24 03/10/2025 text/html Risk Assessment and Lifestyle Change Counseling (Medicare)Reported bypatient.Coronary Artery Disease Risk Assessment:Family History of Coronary Artery Disease; No personal history of diabetes; No history of peripheral vascular disease, AAA, or carotid disease; No personal history of coronary artery disease; [place] 10 year risk Breast Cancer Risk Assessment:No [...] steps average daily, he is at about 8053-3366 right nowhe feels balance piece from his [...] this yearhasn't come back blood sugar control [id number] is a 7checks daily and usually from 85-110 fastingno sx lows back is okaylower back mild sorenessmuch better after surgeryno radicular sxwhen he walks after 4727-7974 steps it gets betterneck is really goodno pain reallymild soreness in shoulders BP has been up and downwhen he checks it can be [id number]/67 this morninglast week at doctor visit it [...] another agent not humira. Kathy May MD [address] [place] [address], [phone], [facility] 03/10/2025 17:33:03 03/30/2025 text/html PT Initial Eval*Reported [...] limitation in Walking/balance Nagi Whitman, PT [address] [facility], [place], [address], [facility] 04/01/2025 09:27:27
== END 2025-05-12 16:07 | disposition home or self-care (01) ==
LOC: HO.RHE 15:27
PROVIDERS: PCP Family Medicine; Visit Provider Student in an Organized Health Care Education/Training Program
DX: M06.00 Rheumatoid arthritis without rheumatoid factor, unspecified site (principal); D61.818 Other pancytopenia; Z51.81 Encounter for therapeutic drug level monitoring; Z79.69 Long term (current) use of other immunomodulators and immunosuppressants
CPT/HCPCS: 99214; G2211

== ENCOUNTER → 2025-05-12 15:27 | Outpatient (BNVA) | payer MEDICARE, BC, SELFPAY | PROVIDERS: PCP Family Medicine; Visit Provider Student in an Organized Health Care Education/Training Program | DX: M06.00 Rheumatoid arthritis without rheumatoid factor, unspecified site (principal); Z51.81 Encounter for therapeutic drug level monitoring; D61.818 Other pancytopenia; Z79.69 Long term (current) use of other immunomodulators and immunosuppressants | CPT/HCPCS: 99212 ==

== ENCOUNTER 2025-11-05 08:24 | Outpatient (REF) | payer MEDICARE, BC, SELFPAY ==
[2025-11-05 08:39] LABS: MANUAL DIFF FLAG NO
[2025-11-05 08:49] LABS: Hematocrit 40.7 % (42.0-52.0); Hemoglobin 12.8 g/dl (14.0-18.0); Imm Gran Abs Auto 0.01 X10*3/uL (0.00-0.03); Imm Gran Pct Auto 0.3 % (0.0-0.4); Lymphocytes Absolute Auto 0.9 X10*3/uL (1.2-4.9); Mean Corpuscular HGB Conc 31.4 g/dl (31.0-36.0); Mean Corpuscular Hemoglobin 30.0 pg (27.0-33.0); Mean Corpuscular Volume 95.3 fL (80.0-98.0); NRBC Abs Auto 0.000 X10*3/uL (0.0-0.012); NRBC Pct Auto 0.0 /100WBC (0.0-0.2); Platelet Count 181 X10*3/uL (160-400); Red Blood Count 4.27 X10*6/uL (4.60-5.80); White Blood Count 3.5 X10*3/uL (4.8-10.8)
[2025-11-05 09:24] LABS: Alanine Aminotransferase 45 U/L (0-40); Albumin Level 4.1 g/dL (3.5-5.0); Alkaline Phosphatase 61 U/L (39-117); Anion Gap 11 (12-20); Aspartate Amino Transferase 37 U/L (5-37); Blood Urea Nitrogen 18 mg/dL (9-16); Calcium 9.1 mg/dL (8.4-10.2); Carbon Dioxide 30 mmol/L (22-29); Chloride 108 mmol/L (96-108); Estimated Glomerular Filt Rate > 60; Potassium 4.2 mmol/L (3.3-5.1); Sodium 145 mmol/L (135-145); Total Protein 6.5 g/dL (6.5-8.0)
== END 2025-11-05 08:25 | disposition home or self-care (01) ==
LOC: HO.LAB 08:24
PROVIDERS: PCP Family Medicine; Visit Provider Student in an Organized Health Care Education/Training Program
DX: M06.00 Rheumatoid arthritis without rheumatoid factor, unspecified site (principal)
CPT/HCPCS: 36415; 80053; 85025; 85652; 86140

== ENCOUNTER 2025-11-11 15:19 | Outpatient (AMB) | payer MEDICARE, BC, SELFPAY ==
--- NOTE | 2025-11-11 15:31 | A.OFFVIS_ITS ---
Vital Signs 11/11/25 15:46 Height 5 ft 11 in Weight 173 lb 8.061 oz BMI 24.2 BP 140/82 H Blood Pressure Location Lt brachial Position Sitting Pulse 63 Pulse Source Pulse Oximeter Pulse Oximetry (%) 98 Oxygen Delivery Method Room Air Intake Visit Reasons: follow up Intake Note: Patient presents today for RA follow up and test results. 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, bilateral carpal tunnel syndrome status post surgical release, PMR and seronegative rheumatoid arthritis here today for follow up Interval History: Patient last seen 05/12/2025 with me - On Humira 40mg every 3 weeks - At that time was on Humira every 3 weeks due to insurance issues - Decision was made to his try and switch him to a bio similar however the co pay was still going to be $2000 - Does not want to do infusions right now - Would like to try another pill: started leflunomide Today - On leflunomide 10mg daily - Has not noticed much difference or any changes - Noting more fibrotic changes in the palm of the hand without triggering - Compression gloves helps Rheumatologic History: Seronegative diagnosed 12/17 has hx of PSO HCQ started 12/17 ineffective & caused PSO flare DC 07/17 MTX started 07/17 ineffective DC 09/2023 Humira 09/2023 effective PMR 2021 Tapered off prednisone Initial history: This is a 77-year-old male with past medical history of hypertension, dyslipidemia, type 2 diabetes mellitus, obstructive sleep apnea degenerative disc disease of her lumbar spine presents for evaluation of PMR. Condition started the end of July patient noticing generalized stiffness of his neck, shoulders, hands, thighs. Stiffness improves in about 8 hours. Was evaluated by his PCP and was found to have significantly elevated inflammatory markers. He was started on prednisone 15 mg daily with dramatic improvement of his symptoms however his blood sugars were significantly elevated his prednisone was tapered to 7.5 mg daily. Patient felt that the higher dose of prednisone was more helpful. Was also found to have positive Lyme serology and received a 28 day course of doxycycline. He denied any tick bites and denied any activ ities that would put him at risk of a tick bite. Denies any skin rashes. He also denies any joint pain, jaw claudication, tongue pain. Denies any claudication of his hands or feet. Denies headaches, fevers, weight loss or blurry vision. Current Rheumatology Medication(s): Leflunomide 10mg daily [facility] Medical History Encounter for monitoring of adalimumab therapy PMR (polymyalgia rheumatica) Low back pain, unspecified Psoriasis Degeneration of intervertebral disc of lumbar region Osteoarthritis Atrial fibrillation Hyperlipidemia Essential hypertension Obstructive sleep apnea Diabetes Hypothyroidism Surgical History H/O cervical spine surgery (~06/2024) H/O knee surgery H/O heart surgery Hx of excision of lamina of lumbar vertebra for decompression of spinal cord Hx of hernia repair Family History Mother Coronary arteriosclerosis Myocardial infarction Father Alcoholism Diabetes Social History Household Members: Spouse Household Members Other:: Alcohol intake: current Alcohol intake frequency: holidays/special occasions only Patient Tobacco Use Status: Former Tobacco user Current occupational status: retired 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 Review of Systems Narrative Review of Systems Constitutional: Denies fever, chills, weight loss ENT: Denies vision changes, eye pain or eye redness, dental caries, dry mouth GI: Denies nausea, vomiting, diarrhea, abdominal pain, change in BM Pulm: Denies SOB, LESLIE, hemoptysis, wheezing Cards: Denies chest pain, palpitations Skin: Denies Raynaud's, rash, nail changes, photosensitivity, 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 Well appearing and in no apparent painful distress MSK Hands * Right Hand: Able to make a fist. No swelling or tenderness to palpation of the MCPs, PIPs or DIPs. Flexor tendon thickening on the 3rd digit with mild flexion abnormality at the level of the MCP * Left Hand: Able to make a fist. No swelling or tenderness to palpation of the MCPs, PIPs or DIPs. * Herbedens nodes noted bilaterally Wrists * Right Wrist: Full ROM to flexion and extension. No swelling or TTP * Left Wrist: Full ROM to flexion and extension. No swelling or TTP Elbows * Right Elbow: Full ROM. No swelling or TTP. No TTP of the medial epicondyle. No TTP of the lateral epicondyle * Left Elbow: Full ROM. No swelling or TTP. No TTP of the medial epicondyle. No TTP of the lateral epicondyle Shoulders * Right shoulder: Full ROM. No swelling noted. No TTP of the AC joint. No TTP of the subacromial bursa. No TTP of the posterior shoulder * Left shoulder: Full ROM. No swelling noted. No TTP of the AC joint. No TTP of the subacromial bursa. No TTP of the posterior shoulder Knees * Right knee: Full ROM. No swelling noted. No TTP of the knee joint line. No TTP of pes anserine bursa * Left knee: Full ROM. No swelling noted. No TTP of the knee joint line. No TTP of pes anserine bursa. * Crepitations felt bilaterally Ankles * Right ankle: Good ankle dorsiflexion and plantar flexion. No swelling. No TTP of the ankle joint * Left ankle: Good ankle dorsiflexion and plantar flexion. No swelling. No TTP of the ankle joint Feet * Right foot: Negative squeeze test * Left foot: Negative squeeze test Tender points? * No tenderness to palpation of the bilateral trapezius, supraspinatus, anterior costochondral junctions, bilateral suboccipital muscle insertions SKIN No rashes Vital Signs: Last Vital Signs Pulse 63 11/11/25 15:46 BP 140/82 H 11/11/25 15:46 Pulse Ox 98 11/11/25 15:46 Oxygen Delivery Method Room Air 11/11/25 15:46 BMI result Body Mass Index 24.2 Results Reviewed Results Reviewed: Laboratory Tests 11/05/25 08:38 WBC 3.5 L RBC 4.27 L Hgb 12.8 L Hct 40.7 L Plt Count 181 ESR 3 Sodium 145 Potassium 4.2 Chloride 108 Carbon Dioxide 30 H BUN 18 H Creatinine 0.91 AST 37 ALT 45 H C-Reactive Protein < 0.04 Laboratory Tests 11/07/22 10:45 Rheumatoid Factor < 13.0 Cycl Citrul Peptide IgG <16 FAINA Screen POSITIVE A FAINA Titer 1:40 H Laboratory Tests 01/08/25 08:11 Hepatitis A IgM Ab Nonreactive Hep Bs Antigen Negative Hep Bs Antibody NONREACTIVE Hep B Core Total Ab Nonreactive Hepatitis C Ab (EIA) Nonreactive TB Test (T-Spot) Com Negative Assessment & Plan Assessment & Plan (1) Seronegative rheumatoid arthritis: Comment: Seronegative diagnosed 12/17 has hx of PSO HCQ started 12/17 ineffective & caused PSO flare DC 07/17 MTX started 07/17 ineffective DC 09/2023 Humira 09/2023 effective - 04/2025 (insurance issues, high co pay Leflunomide 04/2025 - effective Code(s): M06.00 - Rheumatoid arthritis without rheumatoid factor, unspecified site Category: Medical Plan: #Seronegative RA Patient is a 80-year-old male with seronegative RA here today for follow up. Changed Humira to leflunomide due to insurance issues. Thankfully leflunomide seems to be controlling his disease. Liver function tests improved from the last check. Encouraged continuing compression gloves for his hands. Also discussed potential to refer to hand surgery if the fibrotic tendons become restrictive to daily activities Plan - Leflunomide 10mg - RTC 6 months - Labs before visit: CBC, CMP, ESR, CRP (2) Encounter for monitoring leflunomide therapy: Code(s): Z51.81 - Encounter for therapeutic drug level monitoring; Z79.69 - MCFP (current) use of other immunomodulators and immunosuppressants Plan: #Long-term leflunomide Discussed with patient the benefits and risks of leflunomide for managing the rheumatic condition Benefits include: - Reduced pain, maintenance of remission and reduction of flares Risks include: - GI upset especially diarrhea, skin rash, cytopenias, hepatotoxicity, weight loss, neuropathy Monitoring: CBC, BMP, LFTs, hepatitis B and C serologies Plan I spent 20 minutes reviewing the record and labs, taking a history, examining the patient, discussing the treatment plan and documenting in the medical record Coding Level of Care Code Est Pt Level 3 (96871) Add On Problem Visit Only Diagnoses Seronegative rheumatoid arthritis M06.00 Encounter for monitoring leflunomide therapy Z51.81; Z79.69
[2025-11-11 15:46] VITALS: BP 140/82; PULSE 63; O2SAT 98; BMI 24.2
--- OUTSIDE RECORDS SUMMARY | 2025-11-11 19:16 | XMS_ITS | Clinical Summary ---
Author Organization [facility] Address [address] [place] [id number] Phone Care Team Providers Care Vegetable Inspector Name Role Phone Kathy Viera MD Primary Care Provider Allergies Active Allergy Reactions Criticality Noted Date Comments Chlorhexidine Low 07/19/2024 Other Reaction(s): Rash Chocolate Headaches 03/14/2017 House Dust Mite 04/07/2018 Other 05/14/2018 cats Medications folic acid (FOLVITE) 800 MCG tablet Take 1 tablet by mouth nightly. Active glimepiride (AMARYL) 4 MG tablet Take 8 mg by mouth 2 (two) times a day. Active ALBUTEROL SULFATE (PROAIR HFA INHL) Inhale 1 puff into the lungs 4 (four) times a day as needed. Active metFORMIN (GLUCOPHAGE) 500 MG tablet Take 500 mg by mouth 2 (two) times a day with meals. Active terazosin (HYTRIN) 5 MG capsule Take 5 mg by mouth daily. 8 Active coenzyme Q10 100 mg capsule Take 100 mg by mouth daily. Active multivitamins capsule Take 1 capsule by mouth daily. Active acetaminophen (TYLENOL) 325 mg tablet Take 3 tablets (975 mg total) by mouth every 8 (eight) hours. 50 each 9 Active Additional Information Patient taking differently: 500 mgOral2 times daily, Reported on 03/03/2024 rivaroxaban (XARELTO) 20 mg Tab Take 1 tablet (20 mg total) by mouth daily with dinner. 30 tablet 9 Active metoprolol succinate (TOPROL-XL) 50 MG 24 hr tablet Take 1 tablet (50 mg total) by mouth daily. 30 tablet 9 Active metroNIDAZOLE (METROCREAM) 0.75 % cream Apply 1 Application topically as needed. 6 9 Active gabapentin (NEURONTIN) 300 MG capsule Take 300 mg by mouth as needed. For back pain Active triamcinolone acetonide 0.1 % cream Apply 1 Application topically as needed. 1 Active ketoconazole 2 % cream Apply 1 Application topically as needed. 1 Active azelaic acid (FINACEA) 15 % gel Apply 1 Application topically as needed. 1 Active atorvastatin (LIPITOR) 80 MG tablet 2 Active doxycycline hyclate 20 MG tablet Take 20 mg by mouth daily. 2 Active levothyroxine (SYNTHROID, LEVOTHROID) 125 MCG tablet Take 125 mcg by mouth every morning. 3 Active azelastine (ASTELIN) 137 mcg (0.1 %) nasal spray 3 Active adalimumab (HUMIRA PEN) 40 mg/0.8 mL pen kit Inject 40 mg under the skin every 14 (fourteen) days. Rheumatoid arthritis 4 Active melatonin 3 mg Tab Take 3 mg by mouth nightly at bedtime. Active cyanocobalamin, vitamin B-12, 100 MCG tablet Take 100 mcg by mouth daily. Active lisinopril (PRINIVIL,ZESTR IL) 20 MG tablet Take 1 tablet (20 mg total) by mouth daily. 90 tablet 1 4 Active Additional Information Patient taking differently: 30 mgOral Daily, Reported on 09/02/2024 ferrous sulfate 325 mg (65 mg red cliff iron) tablet Take 1 tablet 3 times a week by oral route. Active Active Problems Problem Noted Date Diagnosed Date Status post ablation of atrial fibrillation 04/2019 Assessment & Plan (05/16/2020 3:54 PM EDT): Patient has a history of previous A Flutter ablation. Will continue to follow up with Dr. Gamez. Assessment & Plan (11/26/2019 9:48 AM EST): It is post right atrial flutter ablation there was some question of recurrence and not seen any data suggesting that we will double check the flutter line at the time of ablation. Hx of total knee arthroplasty, right 02/05/2019 [facility] current use of anticoagulant 9 Typical atrial flutter 01/21/2019 Assessment & Plan (12/12/2022 11:01 AM EST): Is status post ablation of typical atrial flutter today his heart rate shows he is in sinus rhythm on anticoagulation and beta-lynsey Paroxysmal atrial fibrillation 12/30/2018 Assessment & Plan (03/22/2025 2:17 PM EDT): Is very well rate controlled on metoprolol 50 mg daily. He is also anticoagulated on Xarelto 20 mg daily which she will continue without change. Most recent Holter monitor did not show any atrial fibrillation episodes. He had 5 activated events that were correlated with sinus rhythm. Assessment & Plan (12/12/2022 11:00 AM EST): He is doing well he is status post atrial fibrillation ablation today's EKG shows sinus rhythm heart rate 63 bpm he is on beta-lynsey and anticoagulation he will continue that about anticoagulation during surgery I told him that he can stop the Xarelto 2 days before and start the Xarelto 1 day after the surgery but because it is a spinal surgery I told him to talk to the surgeon and go by the surgeon's advice Assessment & Plan (05/16/2020 3:31 PM EDT): The patient is almost 2 weeks postop A. fib ablation and feeling quite well. His femoral incisions look like they are healing up nicely and he has no other concerns at this time. He is in sinus rhythm on EKG in the office today and is tolerating his cardiac medications well. He is following up with Dr. Gamez on June 02, 2020. Assessment & Plan (05/10/2020 11:50 AM EDT): This patient had an ablation he is in normal sinus rhythm and will be continuing on oral anticoagulation. The blood collections in his groins are very small and I anticipate that they will just reabsorb over time they are not infected and they are not painful Assessment & Plan (11/26/2019 9:48 AM EST): Paroxysmal atrial fibrillation with amiodarone therapy. He does have symptoms with it with shortness with dyspnea on exertion and tiredness and fatigue. He will be a good candidate for ablation. I gone over the risk and benefit the procedure in detail risk was quoted between 1 to 4% including but not limited to infection bleeding myocardial perforation tamponade need for emergent open heart surgery myocardial infarction stroke heart attack and . Patient is agreeable and willing to proceed I will arrange for this in the coming future. In the meanwhile he will continue his current medications. Assessment & Plan (12/30/2018 7:54 PM EST): Pt with a hx of Afib whom has undergone a cardioversion in th past. He follows with [place] [facility]. He had seen Dr Bravo whom noted no anticoagulation but continued on amiodarone and metoprolol with rate controlled. Pt was seen by another provider once Dr Bravo retired whom wanted the patient to start anticoagulation but deferred as the pt was taking naproxen for his knee pain. He recently underwent a right total knee replacement about one week ago. Pt denied any episodes then and remained on amiodarone/metoprolol. He was seen by PT today whom noted HR to be in the 140s. He was seen by PCP whom re: he come to the ER. While in the ER, He was noted to be in Afib with HR 130s. He was given a dose of metoprolol and Xarelto. He is currently in NSR with HR 60s. -continue metoprolol 25mg po daily -continue amiodarone 100mg po daily -Xarelto 20mg po daily -echo -cardiology consult Acquired hypothyroidism 12/30/2018 Assessment & Plan (12/30/2018 7:46 PM EST): Continue levothyroxine Obtain a TSH level Hypomagnesemia 12/30/2018 Assessment & Plan (12/30/2018 7:55 PM EST): Pt noted to have a Mg level of 1.5. He was given 2g MgSO4 Repeat level in am Diabetes mellitus, type 2 04/07/2018 Assessment & Plan (05/10/2020 11:50 AM EDT): Hemoglobin A1c should be less than 7 LDL less than 70 Assessment & Plan (12/30/2018 7:42 PM EST): Pt with a hx of DM whom is on glimepiride and metformin at home. - hold glimepiride and metformin -humalog ss -diabetic diet -POCs with meals Assessment & Plan (12/24/2018 11:13 AM EST): Patient with a history of diabetes since his 30s. He states that he has been well controlled and checks his blood sugars 4-5 times per week. He has been on oral agents with his last hemoglobin A1c of 6.8 preoperatively. Currently his blood sugars are ranging 150s. Patient's blood sugars have been well controlled over the past 24 hours. Patient should continue his home doses of oral medications He should also continue to take his blood sugars 4-5 times per week. He should also continue on a diabetic diet. Mixed hyperlipidemia 04/07/2018 Assessment & Plan (03/22/2025 2:17 PM EDT): Continue atorvastatin 80 mg daily. Assessment & Plan (05/16/2020 3:43 PM EDT): Continue atorvastatin 40 mg. Assessment & Plan (12/30/2018 7:40 PM EST): Continue statin Assessment & Plan (12/23/2018 10:24 AM EST): Continue Lipitor Essential hypertension 04/07/2018 Assessment & Plan (03/22/2025 2:16 PM EDT): Blood pressure is controlled today 130/60. He will remain on lisinopril 30 mg daily, Toprol 50 mg daily, Hytrin 5 mg daily. Assessment & Plan (12/12/2022 11:00 AM EST): His blood pressure 132/70 he is on amlodipine 10 mg daily along with lisinopril 10 mg daily he will continue that and get his electrolytes BUN/creatinine done through PCP office time to time Assessment & Plan (05/16/2020 3:41 PM EDT): Patient's blood pressure today was 126/72 and remains well controlled. No medication adjustments at this time. Assessment & Plan (05/10/2020 11:50 AM EDT): Well-controlled Assessment & Plan (12/30/2018 7:45 PM EST): Pt has a hx of htn whom is on norvasc, lisinopril, and metoprolol, which will be continued Monitor vital signs Assessment & Plan (12/23/2018 10:20 AM EST): Continue Norvasc and lisinopril Immunizations Immunization Administration Dates Next Due Influenza High-Dose Trivalen t Preservative Free IM 08/20/2018 Pneumococcal conjugate PCV13 12/23/2018( Deferred: Patient Refused),08/20/2018 Family History Medical History Relation Comments Diabetes mellitus Father Alcohol abuse Mother CV disease Mother Relation Status Comments Father Mother Social History Tobacco Use Types Packs/Day Years Used Date Smoking Tobacco: Former Cigarettes Q uit: 04/07/1973 Smokeless Tobacco: Never Tobacco Cessation:Counseling Given: Not Answered Alcohol Use Standard Drinks/Week Comments Yes 1 (1 standard drink = 0.6 oz pur e alcohol) once a week Education Answer Date Recorded Are you interested in more education? Not on christy e 03/22/2023 Are you concerned about learning? Not on file 03/22/2023 No 03/22/2023 No 03/22/2023 Digital Access Answer Date Recorded No 04/20/2023 No 04/20/2023 Reliable internet access at home? Not on file 04/20/2023 Device with a working camera? Not on file Intimate Partner Violence Answer Date R ecorded Are you denied basic needs s uch as food, clothing, or medical care? No 07/19/2024 In the past 12 months have y ou been in a relationship with a person who hurts, threatens, or tries to control you? No 07/19/2024 Are you denied basic needs s uch as food, clothing, or medical care? No 07/19/2024 In the past 12 months have y ou been in a relationship with a person who hurts, threatens, or tries to control you? No 07/19/2024 Sex and Gender Information Value Date Recorded Sex Assigned at Male 12/30/2018 3:46 PM EST Legal Sex Male 10:07 PM EDT Gender Identity Male 12/30/2018 3:46 PM EST Sexual Orientation Straight 12/30/2018 3: 46 PM EST Last Filed Vital Signs Vital Sign Reading Time Taken Comments Blood Pressure 130/60 03/22/2025 2:00 PM EDT Pulse 58 03/22/2025 2:00 PM EDT Temperature 36.1 C (97 F) 07/19/2024 12:02 PM EDT Respiratory Rate 16 07/19/2024 7:46 PM EDT Oxygen Saturation 98% 03/22/2025 2:00 PM EDT Inhaled Oxygen Concentration - - Weight 76.7 kg (169 lb) 03/22/2025 2:00 PM EDT Height 177.8 cm (5' 10 ) 03/22/2025 2:00 PM EDT Body Mass Index 24.25 03/22/2025 2:00 PM EDT Plan of Treatment Upcoming Encounters Date Type Department Care Team (Late st Contact Info) Description 12/03/2025 12:20 PM EST [facility] [address] [facility], [address] [place] [id number] Tuan Mercado MD [address] [place] [address], [address] [address] [email or web address] 03/11/2026 9:40 AM EDT Office [facility] [address] Floor, [address] [place] [phone] Rene Chowdhury MD, MS [address] [facility], [address] [address] [email or web address] Health Maintenance Due Date Last Done Comments DEPRESSION SCREENING 1958 HEPATITIS C SCREENING 1964 COLOGUARD 1991 FIT TEST 1991 FOBT 1991 SIGMOIDOSCOPY 1991 VIRTUAL COLONOSCOPY 1991 ZOSTER VACCINES (1 of 2) 12/05/2014 10/10/2014 DIABETIC EYE EXAM 04/07/2018 HEMOGLOBIN A1C 05/26/2019 11/26/2018 TSH LEVEL 12/30/2019 12/30/2018 COVID-19 VACCINE (3 - Pfizer risk series) 02/25/2021 01/28/2021, 01/08/2021 RSV VACCINE (1 - 1-dose 75+ series) 2021 INFLUENZA VACCINE (#1) 2025 , 10/11/2019, 09/10/2019, Additional history exists CREATININE LEVEL 07/19/2025 07/19/2024, , 04/29/2020, Additional history exists POTASSIUM LEVEL 07/19/2025 07/19/2024, 08/2 03/2024, 04/29/2020, Additional history exists BLOOD PRESSURE 09/21/2025 03/22/2025 Adult Td,Tdap Booster 10/02/2025 10/02/2015 SMOKING Hx and SMOKELESS TOBACCO SCREENING 03/22/2026 03/22/2025 COLONOSCOPY 07/25/2027 07/25/2017 COLORECTAL CANCER SCREENING 07/25/2027 PNEUMOCOCCAL VACCINES (50+ years) Completed 08/20/2018, 03/11/2015, 01/10/2014 HEPATITIS A VACCINES Aged Out No long er eligible based on patient's age to complete this topic HIB VACCINES Aged Out No longer eligi ble based on patient's age to complete this topic MENINGOCOCCAL VACCINES (ACWY) Aged Out No longer eligible based on patient's age to complete this topic MENINGOCOCCAL VACCINES (B) Aged Out N o longer eligible based on patient's age to complete this topic Medical Devices Implanted Type Area Pipefitter Helper Device Identifier Shelf Expiration Date Model / Serial / Lot Cement Bone Biomet Standard R 1x40 Us - [id number] Implanted:Qty: 1 on 12/22/2018 by Ashok Roblero MD at [facility] Right: Knee EDISON / DIV [employer]RIST[id number] 02/22/2023 [id number] / / [id number] Knee Implant [id number] Patella Asymmetric - [id number] Implanted:Qty: 1 on 12/22/2018 by Ashok Roblero MD at [facility] Right: Knee EDISON / [employer] BRIST[employer] SQUIBB 09/06/2023 [id number] / / [id number] Knee Tray 79mm Plate Bone Primary V[employer]ard [place] I Beam Revision Interlock Cemented - [id number] Implanted:Qty: 1 on 12/22/2018 by Ashok Roblero MD at [facility] Right: Knee [employer] 09/07/2028 [id number] / / [id number] Box Component 70mm Femoral Knee Vanguard Inter[place]ok [place] Posterior Stabilized Open Cemented Right - [id number] Implanted:Qty: 1 on 12/22/2018 by Ashok Roblero MD at [facility] Right: Knee [employer] 10/02/2028 [id number] / / [id number] Knee Insert 79 [id number] Bearing Vanguard E1 Polyethylene Vitamin E Infused Stabilized - [id number] Implanted:Qty: 1 on 12/22/2018 by Ashok Roblero MD at [facility] Right: Knee [employer] 06/14/2023 [id number] / / [id number] Procedures Procedure Name Priority Date/Time Associated Diagnosis Comments BASIC METABOLIC PANEL (BMP) STAT 07/19/2024 1:13 PM EDT THYROID STIMULATING HORMONE (TSH) STAT 12/30/2018 4:00 PM EST HEMOGLOBIN A1C Routine 11/26/2018 7:44 AM EST Primary osteoarthritis of right knee HM COLONOSCOPY FOR RESULT ENTRY ONLY Routine 07/25/2017 from Last 3 Months or Most Recently Relevant to Health Maintenance Results * (ABNORMAL) Basic metabolic panel (07/19/2024 1:13 PM EDT) SODIUM 140 133 - 146 mmol/L [facility] CHLORIDE 104 96 - 108 mmol/L [facility] POTASSIUM 5.4(H) 3.3 - 5.1 mmol/L [facility] CO2 27 21 - 35 mmol/L [facility] BUN 32(H) 6 - 19 mg/dL [facility] CREATININE 1.50 0.5 - 1.5 mg/dL [facility] GLUCOSE 226(H) 70 - 99 mg/dL [facility] CALCIUM 8.8 8.4 - 10.3 mg/dL [facility] EGFR 48(L) >59 mL/min/1.7 3m2 [facility] Comment:Estimated glomerular filtration rate calculated using the CKD-EPI refit equation. ANION GAP 14 10 - 20 mmol/L [facility] Blood 07/19/2024 1:13 PM EDT 07/19/2024 1:17 PM EDT us Russell Cortes MD LAB BLOOD BKR ORD ERABLES Final Result [address] [address] * (ABNORMAL) TSH (12/30/2018 4:00 PM EST) TSH 15.15(H) 0.27 - 4.20 uIU/mL [facility] 12/30/2018 4:00 PM EST 12/30/2018 8:11 PM EST us Bull Vaca PA-C LAB BLOOD BKR ORDERABLES Maureen l Result [address] [address] * (ABNORMAL) Hemoglobin A1c (11/26/2018 7:44 AM EST) HEMOGLOBIN A1C 6.8(H) 4.3 - 5.8 % [facility] Blood 11/26/2018 7:44 AM EST 11/26/2018 7:49 AM EST us Ashok Roblero MD LAB BLOOD BKR ORDERABLES Fin al Result [facility] [address] [place] [address] * COLONOSCOPY FOR RESULT ENTRY ONLY (07/25/2017) Colonoscopy External Historical Provider HEALTH MAINTENANCE Final Result from Last 3 Months or Most Recently Relevant to Health Maintenance Insurance MEDICARE PART A & B [facility] MEDICARE SUPPLEMENT MEDICARE PART A & B [facility] MEDICARE SUPPLEMENT MEDICARE PART A & B [facility] MEDICARE SUPPLEMENT MEDICARE PART A & B [facility] MEDICARE SUPPLEMENT MEDICARE PART A & B [facility] MEDICARE SUPPLEMENT MEDICARE PART A & B [facility] MEDICARE SUPPLEMENT MEDICARE PART A & B [facility] MEDICARE SUPPLEMENT MEDICARE PART A & B [facility] MEDICARE SUPPLEMENT MEDICARE PART A & B [facility] MEDICARE SUPPLEMENT Advance Directives For more information, please contact: [phone] (9AM - 5PM [place], Saturday-Saturday) * Full Code (Confirmed) (Latest Code Status on File) Date Activated Date Inactivated Comments 12/30/2018 8:35 PM 12/31/2018 5:56 PM Question Answer Comments Code Status Confirmed With: Patient * Full Code (Presumed) Date Activated Date Inactivated Comments 12/22/2018 2:17 PM 12/24/2018 2:10 PM * Full Code (Presumed) Date Activated Date Inactivated Comments 12/22/2018 8:42 AM 12/22/2018 2:17 PM Care Teams Vegetable Inspector Relationship Specialty Start Date End Date Kathy Viera MD [address] [place] [address] [place] [phone] [email or web address] PCP - General 09/12/17 Additional Source Comments The information contained in this document represents components of the legal health record. It is not the complete legal health record.[facility]
--- OUTSIDE RECORDS SUMMARY | 2025-11-11 19:16 | XMS_ITS | Encounter Summary ---
Author Organization [facility] Address [address] [place] [address] Phone Care Team Providers Care Group Leader Semiconductor Testing Name Role Phone Kathy Viera MD Primary Care Provider + [phone] Reason for Referral * MRI/CAT Scan - Closed Specialty Diagnoses / Procedures Referred By Misha mar Referred To Contact Radiology Diagnoses Radiculopathy, lumbar region Procedures MRI Lumbar Spine Deniz Curiel DO Phone: tel: fax: [email or web address] Referral ID Status Reason Start Date Expiration Date Visits Re quested Visits Authorized [id number] Closed 08/05/2020 08/05/2021 1 1 Encounter Details Date Type Department Care Team (Late st Contact Info) Description 08/05/2020 Ancillary Orders Virtual Department [address] [place] [address] Deniz Curiel DO [address] [place] [address] [email or web address] Radiculopathy, lumbar region Social History Tobacco Use Types Packs/Day Years Used Date Smoking Tobacco: Former Cigarettes Q uit: 04/07/1973 Smokeless Tobacco: Never Alcohol Use Standard Drinks/Week Comments Yes 1 (1 standard drink = 0.6 oz pur e alcohol) once a week Sex and Gender Information Value Date Recorded Sex Assigned at Male 12/30/2018 3:46 PM EST Legal Sex Male 10:07 PM EDT Gender Identity Male 12/30/2018 3:46 PM EST Sexual Orientation Straight 12/30/2018 3: 46 PM EST documented as of this encounter Plan of Treatment Upcoming Encounters Date Type Department Care Team (Late st Contact Info) Description 12/03/2025 12:20 PM EST Office Visit [facility] [address] 3rd Floor, [address] [place] [address] Tuan Mercado MD [address] [place] [address], [address] [id number] [email or web address] 03/11/2026 9:40 AM EDT Office Visit [address] 3rd [facility], [address] [place] [address] Rene Chowdhury MD, [place] 22 [facility], [address] [place] [address] [email or web address] documented as of this encounter Results * MRI LUMBAR SPINE (NEURO) WITHOUT CONTRAST (08/16/2020 2:10 PM EDT) Anatomical Region Laterality Modality L-spine Magnetic Resonan ce 08/16/2020 4:22 PM EDT Impressions 08/16/2020 4:30 PM EDT Multilevel degenerative changes as outlined above most significant at L4-5 with bilateral foraminal disc herniations compressing the exiting L4 nerve roots. Narrative 08/16/2020 4:30 PM EDT HISTORY: Radiculopathy, lumbar region COMPARISON: None. TECHNIQUE: Exam performed on a 1.5 Yvette high-field MRI scanner. Sagittal T1, T2 and STIR, axial T1 and T2 sequences were obtained. MRI LUMBAR SPINE FINDINGS: Normal lordosis. Minimal grade 1 spondylolisthesis of L5 (2 mm). Multilevel endplate spurring. Moderate L4-5 and mild L1-2, L3-4 and L5-S1 disc space narrowing. No compression fractures. No destructive or suspicious bone lesions. Conus terminates at T12-L1. Dependent soft tissue edema throughout the lower back. Additional findings: No incidental findings of concern. L1-L2: Disc bulging. Mild facet arthropathy. L2-L3: Disc bulging. Mild facet arthropathy. L3-L4: Disc bulging. Small right foraminal disc protrusion and annular tear causing mild neural foraminal stenosis. No nerve root compression. Mild facet arthropathy and ligamentum flavum hypertrophy. L4-L5: Moderate size broadbase disc protrusion with bilateral foraminal extension compressing the exiting L4 nerve roots. Moderate facet arthropathy. Ligamentum flavum hypertrophy. Mild canal stenosis. L5-S1: Mild facet arthropathy. Procedure Note Russell Soriano MD - 08/16/2020 HISTORY: Radiculopathy, lumbar region COMPARISON: None. TECHNIQUE: Exam performed on a 1.5 Yvette high-field MRI scanner. SagittalT1, T2 and STIR, axial T1 and T2 sequences were obtained. MRI LUMBAR SPINE FINDINGS: Normal lordosis. Minimal grade 1 spondylolisthesis of L5 (2 mm).Multilevel endplate spurring. Moderate L4-5 and mild L1-2, L3-4 and L5-S1disc space narrowing. No compression fractures. No destructive orsuspicious bone lesions. Conus terminates at T12-L1. Dependent soft tissueedema throughout the lower back. Additional findings: No incidental findings of concern. L1-L2: Disc bulging. Mild facet arthropathy. L2-L3: Disc bulging. Mild facet arthropathy. L3-L4: Disc bulging. Small right foraminal disc protrusion and annulartear causing mild neural foraminal stenosis. No nerve root compression.Mild facet arthropathy and ligamentum flavum hypertrophy. L4-L5: Moderate size broadbase disc protrusion with bilateral foraminalextension compressing the exiting L4 nerve roots. Moderate facetarthropathy. Ligamentum flavum hypertrophy. Mild canal stenosis. L5-S1: Mild facet arthropathy. IMPRESSION: Multilevel degenerative changes as outlined above most significant at L4-5with bilateral foraminal disc herniations compressing the exiting L4 nerveroots. us Deniz Curiel DO IMG MR XSPECIALTY Final Resu lt documented in this encounter Visit Diagnoses Diagnosis Radiculopathy, lumbar region Thoracic or lumbosacral neuritis or radiculitis, unspecified Radiculopathy, lumbar region Thoracic or lumbosacral neuritis or radiculitis, unspecified documented in this encounter Additional Health Concerns Infection Onset Date Last Indicated Resolved Time CoV-Risk 07/19/2024 07/19/2024 07/30/2024 1:21 AM EDT documented as of this encounter Care Teams Group Leader Semiconductor Testing Relationship Specialty Start Date End Date Kathy Viera MD [address] [place] [phone] [email or web address] PCP - General 09/12/17 documented as of this encounter Additional Source Comments The information contained in this document represents components of the legal health record. It is not the complete legal health record.[facility]
--- OUTSIDE RECORDS SUMMARY | 2025-11-11 19:16 | XMS_ITS | Encounter Summary ---
Author Organization [facility] Address [address] [facility] [address] [place] [address] Phone Care Team Providers Care Senior Reservations Agent Name Role Phone Kathy Viera MD Primary Care Provider Encounter Details Date Type Department Care Team (Late Contact Info) Description 12/22/2018 Procedure Pass OR Admitting Dept - Virtual Department [address] [place] [address] Social History Tobacco Use Types Packs/Day Years [...] Encounters Date Type Department Care Team (Late Contact Info) Description 12/03/2025 12:20 PM EST Office Visit [facility] [address] [place] [address] 3rd Floor, [address] [place] [address] Tuan Mercado MD [address] [place] [address], [address] [address] 03/11/2026 9:40 AM EDT Office Visit [facility] [address] 3rd Floor, [address] [place] [address] Rene Chowdhury MD, MS 22 [facility], [address] [place] [address] [email or web address] documented as of this encounter Visit Diagnoses Not on filedocumented in this encounter Additional Health Concerns Infection Onset Date Last Indicated Resolved Time CoV-Risk 07/19/2024 07/19/2024 07/30/2024 1:21 AM EDT documented as of this encounter Care Teams Senior Reservations Agent Relationship Specialty Start Date End Date Kathy Viera MD [address] [place] [address] [place] [phone] [email or web address] PCP - General 09/12/17 documented as of this encounter Additional Source Comments The information contained in this document represents components of the legal health record. It is not the complete legal health record.[facility]
--- OUTSIDE RECORDS SUMMARY | 2025-11-11 19:16 | XMS_ITS | Encounter Summary ---
Author Organization [facility] Address [address] [facility] [address] [place] [address] Phone Care Team Providers Care Sash Repairer Name Role Phone Kathy Viera MD Primary Care Provider Encounter Details Date Type Department Care Team (Late Contact Info) Description 08/05/2020 Procedure Pass [address] [address] Social History Tobacco Use Types Packs/Day Years [...] Description 12/03/2025 12:20 PM EST Office Visit [facility] [address] [place] [address] 3rd Floor, [address] [place] [address] Tuan Mercado MD [address] [place] [address], [address] [address] 03/11/2026 9:40 AM EDT Office Visit [facility] 22 [facility] 3rd Floor, [address] [place] [address] Rene Chowdhury MD, MS 22 [facility], [address] [place] [address] [email or web address] documented as of this encounter Visit Diagnoses Not on filedocumented in this encounter Additional Health Concerns Infection Onset Date Last Indicated Resolved Time CoV-Risk 07/19/2024 07/19/2024 07/30/2024 1:21 AM EDT documented as of this encounter Care Teams Sash Repairer Relationship Specialty Start Date End Date Kathy Viera MD [address] [place] [address] [place] [address] [email or web address] PCP - General 09/12/17 documented as of this encounter Additional Source Comments The information contained in this document represents components of the legal health record. It is not the complete legal health record.[facility]
--- OUTSIDE RECORDS SUMMARY | 2025-11-11 19:16 | XMS_ITS | Encounter Summary ---
Author Organization [facility] Address [address] [place] [address] [address] [place] [address] Phone Care Team Providers Care Commission For The Blind Director Name Role Phone Kathy Viera MD Primary Care Provider [phone] Encounter Details Date Type Department Care Team (Late Contact Info) Description 05/12/2018 Ancillary Orders [address] [address] Jordan Connor DO 4 [facility], [place] [address] [email or web address] Right knee pain, unspecified chronicity Social History Tobacco Use Types Packs/Day Years Used Date Smoking Tobacco: Former Cigarettes Q uit: 04/07/1973 Smokeless Tobacco: Never Alcohol Use Standard Drinks/Week Comments Yes 0 (1 standard drink = 0.6 oz pur e alcohol) Sex and Gender Information Value Date Recorded Sex Assigned at Male 12/30/2018 3:46 PM EST Legal Sex Male 10:07 PM EDT Gender Identity Male 12/30/2018 3:46 PM EST Sexual Orientation Straight 12/30/2018 3: 46 PM EST documented as of this encounter Plan of Treatment Upcoming Encounters Date Type Department Care Team (Late Contact Info) Description 12/03/2025 12:20 PM EST Office Visit [facility] [address] [place] [address] 3rd Floor, [address] [place] [address] Tuan Mercado MD 22 [facility], [address] [place] [address] [email or web address] 03/11/2026 9:40 AM EDT Office Visit [facility] 22 [facility] 3rd Floor, [address] [place] [address] Rene Chowdhury MD, MS 22 [facility], [address] [place] [address] [email or web address] documented as of this encounter Results * XR KNEE 4 OR MORE VIEWS (RIGHT) (05/14/2018 2:55 PM EDT) Narrative Gissel Dailey - 05/14/2018 2:55 PM EDT This image report has been auto-finalized and has not been read by a Radiologist. Interpretation has been included in the provider encounter note for this date of service. us Jordan Connor DO IMG XR LOWER EXTREMITY Maureen l Result documented in this encounter Visit Diagnoses Diagnosis Right knee pain, unspecified chronicity Right knee pain, unspecified chronicity documented in this encounter Additional Health Concerns Infection Onset Date Last Indicated Resolved Time CoV-Risk 07/19/2024 07/19/2024 07/30/2024 1:21 AM EDT documented as of this encounter Care Teams Commission For The Blind Director Relationship Specialty Start Date End Date Kathy Viera MD [address] [place] [address] [place] [address] [email or web address] PCP - General 09/12/17 documented as of this encounter Additional Source Comments The information contained in this document represents components of the legal health record. It is not the complete legal health record.[facility]
--- OUTSIDE RECORDS SUMMARY | 2025-11-11 19:16 | XMS_ITS | Encounter Summary ---
Author Organization [facility] Address [address] [place] [address] [place] [address] Phone Care Team Providers Care Anodic Operator Name Role Phone Kathy Viera MD Primary Care Provider + [phone] Reason for Referral * MRI/CAT Scan - Closed Specialty Diagnoses / Procedures Referred By Misha mar Referred To Contact Diagnoses Paroxysmal atrial fibrillation Procedures MCT (Mobile Cardiac Telemetry) Guzman Rodríguez MD Phone: tel: fax: Referral ID Status Reason Start Date Expiration Date Visits Re quested Visits Authorized [id number] Closed 07/28/2019 07/27/2020 1 1 Encounter Details Date Type Department Care Team (Latest Contact Info) Description 07/28/2019 Ancillary Orders [facility] [address] Floor, [address] [place] [address] Guzman Rodríguez MD [address] [place] [address] Paroxysmal atrial fibrillation Social History Tobacco Use Types Packs/Day Years [...] Description 12/03/2025 12:20 PM EST Office Visit [facility] 22 [facility] 3rd [facility], [address] [place] [address] Tuan Mercado MD 22 [facility], [address] [address] [email or web address] 03/11/2026 9:40 AM EDT Office Visit [facility] [address], [address] [place] [address] Rene Chowdhury MD, MS 22 [facility], [address] [address] [email or web address] Scheduled Orders Name Type Priority Associated Diagnoses Orde r Schedule MCT (Mobile Cardiac Telemetry) Cardiac Monitors Routine Paroxysmal atrial fibrillation Expected: 07/27/2019, Expires: 11/18/2019 documented as of this encounter Visit Diagnoses Diagnosis Paroxysmal atrial fibrillation Atrial fibrillation documented in this encounter Additional Health Concerns Infection Onset Date Last Indicated Resolved Time CoV-Risk 07/19/2024 07/19/2024 07/30/2024 1:21 AM EDT documented as of this encounter Care Teams Anodic Operator Relationship Specialty Start Date End Date Kathy Viera MD [address] [place] [address] [place] [phone] [email or web address] PCP - General 09/12/17 documented as of this encounter Additional Source Comments The information contained in this document represents components of the legal health record. It is not the complete legal health record.[facility]
--- OUTSIDE RECORDS SUMMARY | 2025-11-11 19:16 | XMS_ITS | Encounter Summary ---
Author Organization [facility] Address [address] [facility] [address] [place] [address] Phone Care Team Providers Care Animal Control Officer Name Role Phone Kathy Viera MD Primary Care Provider [phone] Encounter Details Date Type Department Care Team (Late st Contact Info) Description 07/19/2024 Procedure Pass [facility], Ct Scan - [facility] [address] [place] [address] Social History Tobacco Use Types Packs/Day Years [...] PM EST documented as of this encounter Functional Status * Calculated C-SSRS Risk Score (Lifetime/Recent) Answer Date of Assessment Author No Risk Indicated 07/19/2024 12:01 PM EDT Radha Simmons RN * [place] Suicide Severity Rating Scale (Screener/Recent Self-Report) Question Answer Date of Assessment Author 1. Wish to be (Past 1 Month) No 024 12:01 PM EDT Radha Rodriguez, RN 2. Non-Specific Active Suici syed Thoughts (Past 1 Month) No 07/19/2024 12:01 PM EDT Victor Manuel Rodriguez RN 6. Suicidal Behavior (Lifetime) No 12:01 PM EDT Radha Rodriguez RN documented as of this encounter Plan of Treatment Upcoming Encounters Date Type Department Care Team (Late st Contact Info) Description 12/03/2025 12:20 PM EST Office Visit [facility] [address] [place] [address] 3rd [facility], [address] [place] [address] Tuan Mercado MD [address] [place] [address], [address] [address] 03/11/2026 9:40 AM EDT Office Visit [facility] [address] [place] [address] 3rd Floor, [address] [place] [address] Rene Chowdhury MD, MS [address] [place] [address], [address] [address] documented as of this encounter Visit Diagnoses Not on filedocumented in this encounter Additional Health Concerns Infection Onset Date Last Indicated Resolved Time CoV-Risk 07/19/2024 07/19/2024 07/30/2024 1:21 AM EDT documented as of this encounter Care Teams Animal Control Officer Relationship Specialty Start Date End Date Kathy Viera MD [address] [place] [address] [place] [address] [email or web address] PCP - General 09/12/17 documented as of this encounter Additional Source Comments The information contained in this document represents components of the legal health record. It is not the complete legal health record.[facility]
--- OUTSIDE RECORDS SUMMARY | 2025-11-11 19:16 | XMS_ITS | Encounter Summary ---
Author Organization [facility] Address [address] [place] [address] [place] [address] Phone Care Team Providers Care Configuration Management Administrator Name Role Phone Kathy Viera MD Primary Care Provider Encounter Details Date Type Department Care Team (Late Contact Info) Description 05/12/2018 Ancillary Orders [facility] [address] [place] [address] Jordan Connor DO [address] [place] [address] Orthopedics & Sports Medicine, [facility] [place] [address] [email or web address] Social History Tobacco Use Types Packs/Day Years [...] Description 12/03/2025 12:20 PM EST Office Visit [facility] [address] [place] [address] 3rd Floor, [address] [place] [address] Tuan Mercado MD 22 [facility], [address] [place] [address] [email or web address] 03/11/2026 9:40 AM EDT Office Visit [facility] [address] [place] [address] Dr 3rd Floor, [address] [place] [address] Rene Chowdhury MD, MS 22 [facility], [address] [place] [address] [email or web address] documented as of this encounter Visit Diagnoses Not on filedocumented in this encounter Additional Health Concerns Infection Onset Date Last Indicated Resolved Time CoV-Risk 07/19/2024 07/19/2024 07/30/2024 1:21 AM EDT documented as of this encounter Care Teams Configuration Management Administrator Relationship Specialty Start Date End Date Kathy Viera MD [address] [place] [address] [place] [address] [email or web address] PCP - General 09/12/17 documented as of this encounter Additional Source Comments The information contained in this document represents components of the legal health record. It is not the complete legal health record.[facility]
--- OUTSIDE RECORDS SUMMARY | 2025-11-11 19:16 | XMS_ITS | Encounter Summary ---
Author Organization [facility] Address [address] [facility] [address] [place] [address] Phone Care Team Providers Care Senior Piping Designer Name Role Phone Kathy Viera MD Primary Care Provider Encounter Details Date Type Department Care Team (Late Contact Info) Description 06/28/2022 Procedure Pass [facility], [address] [address] Social History Tobacco Use Types Packs/Day Years [...] Description 12/03/2025 12:20 PM EST Office Visit [facility] [address] [place] [address] 3rd Floor, [address] [place] [address] Tuan Mercado MD [address] [place] [address], [address] [address] 03/11/2026 9:40 AM EDT Office Visit [facility] [address] [facility] 3rd Floor, [address] [place] [address] Rene Chowdhury MD, MS 22 [facility], [address] [place] [address] [email or web address] documented as of this encounter Visit Diagnoses Not on filedocumented in this encounter Additional Health Concerns Infection Onset Date Last Indicated Resolved Time CoV-Risk 07/19/2024 07/19/2024 07/30/2024 1:21 AM EDT documented as of this encounter Care Teams Senior Piping Designer Relationship Specialty Start Date End Date Kathy Viera MD [address] [place] [address] [place] [phone] [email or web address] PCP - General 09/12/17 documented as of this encounter Additional Source Comments The information contained in this document represents components of the legal health record. It is not the complete legal health record.[facility]
--- OUTSIDE RECORDS SUMMARY | 2025-11-11 19:16 | XMS_ITS | Encounter Summary ---
Author Organization [facility] Address [address] [place] [address] [place] [address] Phone Care Team Providers Care Cement Mason Maintenance Name Role Phone Kathy Viera MD Primary Care Provider [phone] Encounter Details Date Type Department Care Team (Late st Contact Info) Description 09/02/2024 Procedure Pass [facility] [address] [place] [address] Social History Tobacco Use Types Packs/Day Years [...] Description 12/03/2025 12:20 PM EST Office Visit [facility] [address] [place] [address], [address] [place] [address] Tuan Mercado MD [address] [place] [address], [address] [address] [email or web address] 03/11/2026 9:40 AM EDT Office Visit [facility] [address] [place] [address], [address] [place] [address] Rene Chowdhury MD, MS 22 [facility], [address] [address] [email or web address] documented as of this encounter Visit Diagnoses Not on filedocumented in this encounter Care Teams Cement Mason Maintenance Relationship Specialty Start Date End Date Kathy Viera MD [address] [place] [address] [place] [address] [email or web address] PCP - General 09/12/17 documented as of this encounter Additional Source Comments The information contained in this document represents components of the legal health record. It is not the complete legal health record.[facility]
== END 2025-11-11 16:02 | disposition home or self-care (01) ==
LOC: HO.RHES 15:19
PROVIDERS: PCP Family Medicine; Visit Provider Student in an Organized Health Care Education/Training Program
DX: M06.00 Rheumatoid arthritis without rheumatoid factor, unspecified site (principal); Z51.81 Encounter for therapeutic drug level monitoring; Z79.69 Long term (current) use of other immunomodulators and immunosuppressants
CPT/HCPCS: 99213; G2211

== ENCOUNTER → 2025-11-11 15:19 | Outpatient (BNVA) | payer MEDICARE, BC, SELFPAY | PROVIDERS: PCP Family Medicine; Visit Provider Student in an Organized Health Care Education/Training Program | DX: M06.09 Rheumatoid arthritis without rheumatoid factor, multiple sites (principal); Z79.899 Other long term (current) drug therapy | CPT/HCPCS: 99212 ==